=== PATIENT | female | born 1980 | race Caucasian/White ===

== ENCOUNTER 2018-01-30 15:58 | Inpatient (IN) | payer MEDICAID, SELFPAY ==
[2018-01-30 15:59] VITALS: BP 163/99; PULSE 109; RESP 18; TEMP 37.2; O2SAT 99; BMI 50.7
--- NOTE | 2018-01-30 16:13 | ED.DCSUM_ITS ---
- ER Visit Summary Date of Service: 01/30/18 Chief Complaint: Nausea and vomiting History of Present Illness: The patient is a 37 F who presents with nausea and vomiting. Is been ongoing for 6 days. The patient had a partial nephrectomy on December 09 at [facility]. This was for a renal cancer. She has not been on any chemotherapy as they got all of the cancer with the surgery. She has had a complicated postoperative course including multiple admissions at [facility] for postoperative wound infections. She was just released from there 6 days ago. She has been trying to use Zofran and recently started taking Phenergan to help with his nausea but is not getting any better. She has bu rning in her abdomen. She has been doing wound dressing changes on the left flank wound. They are scheduled to follow-up with the wound center. She has not had a fever. She is also currently on Bactrim. Family member in the room states that they put her on this Bactrim because they do not know what infection they are trying to treat. Physical Examination: Vital signs are reviewed. BMI 50. HEENT exam unremarkable. Heart is regular rate and rhythm. Lungs are clear to auscultation bilaterally. Abdomen is soft and nontender. There is no distention, guarding. Extremities have no significant edema. Skin exam reveals a chronic wound to the left flank. There is packing in place. There is no erythema or significant drainage. There is a slight serous drainage which family has stated has been there. Her neurologic exam is normal. Test Results: Hemoglobin 11, hematocrit 33.7. BUN 31, creatinine 4.88. Liver enzymes negative Emergency Department Course and Treatment: The patient's last BUN and creatinine were normal. I hydrated her with IV fluids. She was also given Phenergan. There is concern for dehydration along with possible intrarenal pathology such as ATN with the elevation of her creatinine without a significant elevation of the BUN. Patient was discussed with the hospitalist for admission. Treatment Plan: [] Disposition: Admit Impression: Acute kidney injury, dehydration, vomiting This note was generated with [employer] ([employer]) dictation software. It may contain incorrect words, spelling, and punctuation that were not noted in review of the chart prior to signing ED Disposition - Plan for ED Patient: Disposition: Acute Care Hospital [facility] Chief Complaint: General Illness
[2018-01-30] MEDS: proMETHazine 25 MG/ML Syringe 12.5 MG IV (16:49)
[2018-01-30 16:51] VITALS: PULSE 101; RESP 18; O2SAT 100
[2018-01-30 17:00] LABS: Absolute Lymphocyte Count 1.03 X10^3/ul (0.83-4.51); Absolute Neutrophil Count 6.6 X10^3/uL (2.0-7.7); Basophil# 0.02 X10^3/uL; Basophil% 0.2 % (0-1); Eosinophil# 0.17 X10^3/uL; Hematocrit 33.7 % (37-47); Lymphocyte # 1.03 X10^3/ul (4.0); Lymphocyte % 12.3 % (19-41); Mean Corp Hgb Conc 32.6 g/gl (32-36); Mean Corpuscular Hgb 26.1 pg (27.0-32.0); Mean Platelet Vol. 8.8 fl (6.2-12.0); Monocyte# 0.56 X10^3/uL; Monocyte% 6.7 % (0-10); Neutrophil # 6.59 X10^3/uL (2.7-7.7); Neutrophil % 78.6 % (47-70); POSITIVE COUNT NO; POSITIVE DIFFERENTIAL NO; POSITIVE MORPHOLOGY NO; Platelet Count 305 K/mm3 (150-450); RBC Distribution Width CV 14.1 % (11.6-14.6); RBC Distribution Width SD 39.8 fl (35.1-43.9); Red Blood Count 4.21 M/mm3 (4.2-5.4); White Blood Count 8.4 K/mm3 (4.4-11.0)
[2018-01-30 17:25] LABS: ALB/GLOB Ratio 0.5 RATIO (0.9-2.4); AST(SGOT) 10 U/L (15-37); Alanine Aminotransfer ALT/SGPT 20 U/L (13-56); Albumin, Serum 2.4 g/dL (3.2-5.0); Alkaline Phosphatase 96 U/L (45-117); Anion Gap 14 (5-15); BUN 31 mg/dL (7-18); BUN/Creat Ratio 6.4 RATIO (10-20); Calcium,Total 8.8 mg/dL (8.5-10.1); Chloride 99 mmol/L (98-107); Creatinine, Serum 4.88 mg/dL (0.55-1.02); EST Glomerular Filtration Rate 11 mL/min (>60); Est Glom Filt Rate - Afr Amer 13 mL/min (>60); Estimated Creatinine Clearance 14.07 ml/min; Globulin 4.5 g/dL (2.2-4.2); Glucose 144 mg/dL (74-106); Lipase 32 U/L (73-393); Protein, Total 6.9 g/dL (6.4-8.2); Sodium Level 138 mmol/L (136-145)
[2018-01-30 18:00] VITALS: RESP 18
[2018-01-30] MEDS: 0.9% Normal Saline 1,000 ML 999 ML IV (18:28)
--- NOTE | 2018-01-30 19:27 | PCM.HP.STD ---
Problem List (1) MITRA (acute kidney injury) Status: Acute (2) Intractable nausea and vomiting Status: Acute History of Present Illness Date of Admission: 01/30/18 Chief Complaint: NAUSEA AND VOMITING The patient is a 37 year old F with a significant history of diabetes mellitus TYPE 2; Left kidney cancer status post nephrectomy who presents with 6 days of nausea and vomiting. Patient was at [facility] about a week ago. She spent about 1 day at [facility] and then she was sent to [facility]. Throughout her admission at these hospital she received antibiotics for infection at her left nephrectomy site. Since about the day 1 of receiving these antibiotics she has been having nausea and vomiting. Indeed patient reported that she was discharged from [facility] with nausea and vomiting. Associated with her symptoms is epigastric pain. She also has pain at the left nephrectomy site. Also she has a poor appetite. At her previous hospital stays she was on IV antibiotics. Recently she has also been on Keflex. Her Keflex was later changed to Bactrim. At the time of presentation patient was still on Bactrim but she reported that her home nurse told her not to take Bactrim on the day of her presentation. At emergency department she was found to have severely elevated creatinine above her baseline. Past Medical History Past Medical History (Chronic Problems): Chronic Problems (Last Reviewed 01/31/18 @ 01:49 by Giancarlo Burt MD) Mass of left kidney (Chronic) Medical History: Medical History (Last Reviewed 01/31/18 @ 01:49 by Giancarlo Burt MD) Acute UTI N39.0 Anxiety F41.9 Depressive disorder F32.9 Diabetes mellitus E11.9 Morbid obesity E66.01 Pyelonephritis N12 Smoker F17.200 diabetes mellitus type 2 Allergies acetaminophen [From Tylenol] Adverse Reaction (Severe, Verified 01/30/18 16:02) Hives clindamycin Adverse Reaction (Severe, Verified 01/30/18 16:02) Hives Home Medications: Ambulatory Orders Medication Instructions Recorded Metformin HCl [Glucophage] 500 mg PO BIDCM 06/06/14 Albuterol Inhaler [Ventolin Hfa 2 puff INHALATION Q4H PRN PRN 08/07/17 (SP)] Glipizide [Glucotrol] 10 mg PO BID 08/07/17 Ipratropium/Albuterol Sulfate 3 ml INHALATION Q6H.RT PRN 08/07/17 [Duoneb] Ondansetron [Zofran Odt] 4 mg PO Q8H PRN PRN 08/07/17 Exenatide Microspheres [Bydureon 2 mg SC QWEEK 01/30/18 Pen] Insulin Glargine,Hum.rec.anlog 20 unit SQ DAILY 01/30/18 [Lantus] Promethazine HCl 25 mg PO Q6H PRN 01/30/18 Sulfamethoxazole/Trimethoprim 1 each PO BID 01/30/18 [Bactrim Ds Tablet] Surgical History: Surgical History (Last Reviewed 01/31/18 @ 01:49 by Giancarlo Burt MD) History of tubal ligation Z98.51 Previous section Z98.891 Surgical History: - - Lives: With Family Smoking Status: Current every day smoker - *Family History Paternal Family History: Family History (Last Reviewed 01/31/18 @ 01:49 by Giancarlo Burt MD) Father Diabetes Uncle Cancer Grandmother Diabetes Review of Systems Constitutional: Denies: Chills, Fever, Weight Change HEENT: Denies: Head Aches, Sinus Congestion, Sinus Drainage Cardiovascular: Denies: Chest Pain, Palpitations Respiratory: Denies: Cough, Shortness of breath at rest, Sputum production Gastrointestinal: Reports: Abdominal Pain, Nausea, Vomiting Genitourinary: Denies: Dysuria Musculoskeletal: Denies: Joint Pain, Joint Tenderness Skin: Denies: Rash, Wounds Neurological: Denies: Numbness, Tingling, Focal weakness Psychiatric: Denies: Anxiety, Depression, Homicidal Ideations, Suicidal Ideations Hematologic/ Lymphatic: Denies: Easy Bruising, Easy Bleeding VTE Information - Inpt Only VTE Present on Admission: No VTE Mechan Device Prophylaxis: None VTE Pharm Prophylaxis ordered?: Yes Patient Problems: Active and Suspected Problems (Last Reviewed 01/31/18 @ 01:49 by Giancarlo Burt MD) MITRA (acute kidney injury) (Acute) Intractable nausea and vomiting (Acute) - Physical Exam General: Alert, Oriented x3, Cooperative HEENT: Atraumatic, PERRLA, EOMI, Normocephalic Neck: Supple, No JVD, Negative Carotid Bruits Lungs: Clear to auscultation, Normal air movement Cardiovascular: Regular rate, No murmurs Abdomen: Bowel Sounds Present, Soft, Non Tender Extremities: No edema, Capillary Refill Less than 3 Seconds Skin: No rashes, - - Left flank with surgical wound and francois drainage. Musculoskeletal: No Tenderness to Palpation of Joints or Extremities Neurological: Cranial nerves II-XII grossly intact Psych/Mental Status: Normal Affect, Appropriate Vital Signs Temp Pulse Resp BP Pulse Ox 98.9 F 101 H 18 163/99 H 100 01/30/18 15:59 01/30/18 16:51 01/30/18 18:00 01/30/18 15:59 01/30/18 16:51 Oxygen Delivery Method Room Air Weight: 138.255 kg Body Mass Index (BMI) 50.7 Laboratory Tests Past 24 Hrs 01/30/18 01/30/18 16:52 16:52 WBC 8.4 RBC 4.21 Hgb 11.0 L Hct 33.7 L MCV 80.0 L MCH 26.1 L MCHC 32.6 RDW 14.1 RDW Differential 39.8 Plt Count 305 MPV 8.8 Immature Gran % (Auto) 0.200 Neut % (Auto) 78.6 H Lymph % (Auto) 12.3 L [place] % (Auto) 6.7 Eos % (Auto) 2.0 Baso % (Auto) 0.2 Absolute Neuts (auto) 6.6 Absolute Lymphs (auto) 1.03 Total Counted Not Reportable Sodium 138 Potassium 4.0 Chloride 99 Carbon Dioxide 25.0 Anion Gap 14 BUN 31 H Creatinine 4.88 H Estim Creat Clear Calc 14.07 Est GFR (MDRD) Af Amer 13 L Est GFR (MDRD) Non-Af 11 L BUN/Creatinine Ratio 6.4 L Glucose 144 H Calcium 8.8 Total Bilirubin 0.40 AST 10 L ALT 20 Alkaline Phosphatase 96 Total Protein 6.9 Albumin 2.4 L Globulin 4.5 H Albumin/Globulin Ratio 0.5 L Lipase 32 L Assessment/Plan All Active Problems (Last Reviewed 01/31/18 @ 01:49 by Giancarlo Burt MD) MITRA (acute kidney injury) (Acute) Intractable nausea and vomiting (Acute) The patient is a 37 year old F with a significant history of diabetes mellitus TYPE 2; Left kidney cancer status post nephrectomy who presents with 6 days of nausea and vomiting that started concurrently when antibiotics was initiated; also patient has a copious pus drainage from her left nephrectomy site. Intractable nausea and vomiting Differential diagnosis include antibiotic side effects; diabetic gastroparesis. Bacterial gastroenteritis is less likely since patient has been on multiple antibiotics. Ciprofloxacin and metronidazole was started but to discontinue at this time. Supportive treatment with normal saline and antiemetics. Patient has been initiated on scheduled Reglan for possible diabetic gastroparesis. Nurse reported that 10 minutes after Reglan was given patient had transient restlessness. We will continue Reglan at this time. If her restlessness consider erythromycin. Will check her A1c. Consider transfer for possible gastric emptying study. As needed Zofran ordered. Infected nephrectomy site. White count is normal at 8.4. Wound cultures and blood cultures has been ordered. We will initiate broad-spectrum antibiotics with Linezolid to target MRSA. Vancomycin not started due to AK I with severe poor creatinine function. Cefepime broad-spectrum to cover Pseudomonas. Infectious disease to optimize management. Wound care consult. MITRA Creatinine on admission was 4.88. BUN over creatinine is less than 20. It is possible the patient had ATN from severe dehydration or from the use of antibiotics. Review of old records show that on 06/06/2014 her creatinine was 0.6. Home Bactrim held. Consult nephrology urinary studies Gentle IV hydration. Hold nephrotoxic's. Diabetes mellitus Blood glucose was within goal at admission. Home metformin held. Correction scale insulin. Tobacco abuse Nicotine patch. Counselled. Inpatient consult for smoking cessation. Asthma Home breathing treatments continued. DVT prophylaxis Subcutaneous heparin. Code Visit Inpatient E&M: 32432 Init Hosp L3
[2018-01-30 20:31] VITALS: BMI 50.7
[2018-01-30 20:45] VITALS: BP 186/102; PULSE 98; RESP 18; TEMP 37; O2SAT 98
[2018-01-30] MEDS: 0.9% Normal Saline 1,000 ML 100 ML IV (22:03)
[2018-01-30] MEDS: Ondansetron 4 MG/2 ML Vial IV (22:03)
[2018-01-30] MEDS: Heparin Injection (Vial) 5,000 UNIT/ML VIAL 5000 UNIT SC (22:05)
[2018-01-30 22:46] LABS: Bedside Glucose 147 mg/dL (70-110)
[2018-01-30] MEDS: Metoclopramide 10 MG/2 ML Vial IV (23:59)
[2018-01-30] MEDS: Ciprofloxacin 400 MG/200 ML BAG 200 MG IV (23:59)
[2018-01-31] MEDS: 0.9% NaCl Peripheral Flush Adult/Peds IV ×2 (02:50→08:24)
[2018-01-31 03:13] LABS: Hemoglobin A1c 8.6 % (4.2-6.3)
[2018-01-31 03:26] VITALS: BP 148/95; PULSE 89; RESP 16; TEMP 37; O2SAT 95
[2018-01-31 06:16] LABS: Absolute Neutrophil Count 4.1 X10^3/uL (2.0-7.7); Basophil# 0.03 X10^3/uL; Basophil% 0.5 % (0-1); Eosinophil# 0.14 X10^3/uL; Eosinophils% 2.2 % (0-5); Hematocrit 29.7 % (37-47); Hemoglobin 9.7 g/dl (12.0-15.0); Lymphocyte % 22.1 % (19-41); Mean Corp Hgb Conc 32.7 g/gl (32-36); Mean Corpuscular Hgb 26.3 pg (27.0-32.0); Mean Corpuscular Volume 80.5 fL (81-99); Mean Platelet Vol. 9.2 fl (6.2-12.0); Monocyte# 0.63 X10^3/uL; Monocyte% 9.9 % (0-10); Neutrophil # 4.13 X10^3/uL (2.7-7.7); Neutrophil % 65.1 % (47-70); Platelet Count 251 K/mm3 (150-450); RBC Distribution Width CV 14.1 % (11.6-14.6); RBC Distribution Width SD 39.6 fl (35.1-43.9); Red Blood Count 3.69 M/mm3 (4.2-5.4); White Blood Count 6.3 K/mm3 (4.4-11.0)
[2018-01-31 06:23] LABS: POSITIVE COUNT NO; POSITIVE DIFFERENTIAL NO; POSITIVE MORPHOLOGY NO
[2018-01-31] MEDS: Heparin Injection (Vial) 5,000 UNIT/ML VIAL 5000 UNIT SC ×3 (06:49→22:32)
[2018-01-31] MEDS: Metoclopramide 10 MG/2 ML Vial IV ×2 (06:50→22:17)
[2018-01-31 07:00] LABS: Bedside Glucose 111 mg/dL (70-110)
[2018-01-31 07:25] VITALS: O2SAT 95
[2018-01-31] MEDS: 0.9% Normal Saline 1,000 ML 100 ML IV (07:58)
[2018-01-31 08:14] VITALS: BP 151/95; PULSE 89; RESP 20; TEMP 36.4; O2SAT 100
[2018-01-31] MEDS: Ondansetron 4 MG/2 ML Vial IV (08:24)
--- NOTE | 2018-01-31 08:54 | NURSING ---
Pt tearful, crying. I'm so tired of being in the hospital. I hate having all this medicine, I just wish I knew what was wrong. C.o abd pain. Khari offered, refused at first but then decided to try it. Assisted to bathroom, urinated and back to bed. Dressings intact but dressing should be changed. According to sister, Sister Changes it TID. This nurse wants to wait for Hospitalist doctor to look at it and the pt also wants to get a shower this morning. Will change Wound dressing later today.
[2018-01-31 11:25] LABS: Bedside Glucose 149 mg/dL (70-110)
--- NOTE | 2018-01-31 11:40 | PCM.PN.HOSP ---
Patient Problems: Active and Suspected Problems (Last Reviewed 01/31/18 @ 01:49 by Giancarlo Burt MD) MITRA (acute kidney injury) (Acute) Intractable nausea and vomiting (Acute) Subjective: Feels a little better today, no nausea or vomting Vitals/I&O's: Vital Signs Temp Pulse Resp BP Pulse Ox 97.6 F L 89 20 H 151/95 H 100 01/31/18 08:14 01/31/18 08:14 01/31/18 08:14 01/31/18 08:14 01/31/18 08:14 Oxygen Delivery Method Room Air Weight: 304 lb 12.8 oz Body Mass Index (BMI) 50.7 Intake and Output for Last 24 Hours 01/29/18 01/30/18 01/31/18 23:59 23:59 23:59 Intake Total 3579 / 3579 Output Total 950 / 950 Balance 2629 / 2629 General: Alert, Oriented x3, Cooperative, No apparent distress HEENT: Atraumatic, EOMI, Normocephalic Oral: Moist Mucosa Neck: Supple, No JVD Lungs: Clear to auscultation, Normal air movement, No rhonchi, No wheeze, No rales Cardiovascular: Regular rate, Regular Rhythm, Normal S1, Normal S2, No murmurs Abdomen: Soft, Non Tender, Non-Distended, No Hepato-splenomegaly, - - active purulent drainage from the left nephrectomy site Psych/Mental Status: Normal Affect, Appropriate Laboratory Results 01/30/18 16:52: WBC 8.4, RBC 4.21, Hgb 11.0 L, Hct 33.7 L, MCV 80.0 L, MCH 26.1 L, MCHC 32.6, RDW 14.1, RDW Differential 39.8, Plt Count 305, MPV 8.8, Immature Gran % (Auto) 0.200, Neut % (Auto) 78.6 H, Lymph % (Auto) 12.3 L, [place] % (Auto) 6.7, Eos % (Auto) 2.0, Baso % (Auto) 0.2, Absolute Neuts (auto) 6.6, Absolute Lymphs (auto) 1.03, Total Counted Not Reportable 01/30/18 16:52: Sodium 138, Potassium 4.0, Chloride 99, Carbon Dioxide 25.0, Anion Gap 14, BUN 31 H, Creatinine 4.88 H, Estim Creat Clear Calc 14.07, Est GFR (MDRD) Af Amer 13 L, Est GFR (MDRD) Non-Af 11 L, BUN/Creatinine Ratio 6.4 L, Glucose 144 H, Calcium 8.8, Total Bilirubin 0.40, AST 10 L, ALT 20, Alkaline Phosphatase 96, Total Protein 6.9, Albumin 2.4 L, Globulin 4.5 H, Albumin/Globulin Ratio 0.5 L, Lipase 32 L 01/30/18 16:56: Hemoglobin A1c 8.6 H 01/30/18 22:16: POC Glucose 147 H 01/31/18 05:34: WBC 6.3, RBC 3.69 L, Hgb 9.7 L, Hct 29.7 L, MCV 80.5 L, MCH 26.3 L, MCHC 32.7, RDW 14.1, RDW Differential 39.6, Plt Count 251, MPV 9.2, Immature Gran % (Auto) 0.200, Neut % (Auto) 65.1, Lymph % (Auto) 22.1, [place] % (Auto) 9.9, Eos % (Auto) 2.2, Baso % (Auto) 0.5, Absolute Neuts (auto) 4.1, Absolute Lymphs (auto) 1.40, Total Counted Not Reportable 01/31/18 05:34: Sodium Pending, Potassium Pending, Chloride Pending, Carbon Dioxide Pending, Anion Gap Pending, BUN Pending, Creatinine Pending, Est GFR (MDRD) Af Amer Pending, Est GFR (MDRD) Non-Af Pending, BUN/Creatinine Ratio Pending, Glucose Pending, Calcium Pending 01/31/18 06:55: POC Glucose 111 H 01/31/18 11:05: POC Glucose 149 H Current Medications Albuterol Sulfate (Ventolin Aerosols) 2.5 mg INHALATION Q4H PRN PRN PRN Reason: SOB &/OR WHEEZING Albuterol/Ipratropium (Duoneb) 3 ml INHALATION Q6H.RT PRN PRN Reason: SOB &/OR WHEEZING Dextrose (D50w Syringe) 0 gm IV X1 PRN; Protocol PRN Reason: Hypoglycemia Glucagon () 1 mg IM .X1 PRN PRN Reason: Hypoglycemia Heparin Sodium (Porcine) (Heparin Na) 5,000 unit SC Q8 [facility] Last Admin: 01/31/18 06:49 Dose: 5,000 unit Sodium Chloride () 1,000 mls @ 100 mls/hr IV .Q10H TATIANA Stop: 01/31/18 16:43 Last Admin: 01/31/18 07:58 Dose: 100 mls/hr Cefepime HCl 2 gm/ Sodium (Chloride) 100 mls @ 200 mls/hr IV Q24@2200 TATIANA Last Admin: 01/31/18 02:42 Dose: 200 mls/hr Daptomycin 850 mg/ Sodium (Chloride) 67 mls @ 100 mls/hr IV Q48@1000 TATIANA Last Admin: 01/31/18 03:25 Dose: 100 mls/hr Insulin Human Lispro (Humalog Kwikpen (Bkc)) 0 unit SQ ACHS TATIANA; Protocol Last Admin: 01/31/18 11:07 Dose: Not Given Magnesium Hydroxide (Milk Of Magnesia) 30 ml PO DAILY PRN PRN PRN Reason: Constipation Metoclopramide HCl (Reglan) 10 mg IV Q6 [facility] Last Admin: 01/31/18 06:50 Dose: 10 mg Nicotine (Nicoderm Cq (Pbkc)) 21 mg TRANSDERM. DAILY TATIANA Last Admin: 01/31/18 08:03 Dose: 21 mg Ondansetron HCl (Zofran) 4 mg IV Q6H PRN PRN PRN Reason: NAUSEA/VOMITING Last Admin: 01/31/18 08:24 Dose: 4 mg Sodium Chloride () 5 - 30 ml IV UD PRN PRN Reason: SALINE FLUSH Last Admin: 01/31/18 08:24 Dose: 10 ml Medical Necessity - Tobacco Use Smoking Status: Current every day smoker Assessment/Plan All Active Problems (Last Reviewed 01/31/18 @ 01:49 by Giancarlo Burt MD) MITRA (acute kidney injury) (Acute) Intractable nausea and vomiting (Acute) 1. Surgical site infection of left partial nephrectomy for renal ca/MITRA - resection occurred in november - She had been doing ok until she noticed that she had a blister that was filled with pus - She went to [facility] who transfered her to [facility]. she had cultures drawn and was discharge on keflex - She has been having nausea and vomiting for about a week. She was called by the [facility] to switch abx from keflex to bactrim - Apparently they did not tell her what infection she had - CT abdomen was done at [place] but not here - Currently on IVF and repeat creatinine is pending - c/s to ID and nephrology for infection and MITRA management when she was admitted - She is currently making urine and her K was normal on admit, so no dialysis and this is prerenal to likely ATN at this point - c/w cefepime, DC daptomycin - DC reglan, maintain on zofran and add compazine as needed - will attempt to obtain records from the [facility], otherwise may need to repeat CT here to assess for intra-abdominal abscess 2. DM2 - Hold metformin and glipizide - SSI and will adjust as needed - BG 149 this am 3. Tobacco abuse - advised cessation - Nicotine patch provided 4. Asthma - stable - c/w home inhalers DVT: Heparin Diet: Clears Code Visit Inpatient E&M: 19110 Subs Hosp L2
--- NOTE | 2018-01-31 11:51 | PN_ITS ---
Patient Problems: Active and Suspected Problems (Last Reviewed 01/31/18 @ 01:49 by Giancarlo Burt MD) MITRA (acute kidney injury) (Acute) Intractable nausea and vomiting (Acute) Subjective: Feels a little better today, no nausea or vomting Vitals/I&O's: Vital Signs Temp Pulse Resp BP Pulse Ox 97.6 F L 89 20 H 151/95 H 100 01/31/18 08:14 01/31/18 08:14 01/31/18 08:14 01/31/18 08:14 01/31/18 08:14 Oxygen Delivery Method Room Air Weight: 304 lb 12.8 oz Body Mass Index (BMI) 50.7 Intake and Output for Last 24 Hours 01/29/18 01/30/18 01/31/18 23:59 23:59 23:59 Intake Total 3579 / 3579 Output Total 950 / 950 Balance 2629 / 2629 General: Alert, Oriented x3, Cooperative, No apparent distress HEENT: Atraumatic, EOMI, Normocephalic Oral: Moist Mucosa Neck: Supple, No JVD Lungs: Clear to auscultation, Normal air movement, No rhonchi, No wheeze, No rales Cardiovascular: Regular rate, Regular Rhythm, Normal S1, Normal S2, No murmurs Abdomen: Soft, Non Tender, Non-Distended, No Hepato-splenomegaly, - - active purulent drainage from the left nephrectomy site Psych/Mental Status: Normal Affect, Appropriate Laboratory Results 01/30/18 16:52: WBC 8.4, RBC 4.21, Hgb 11.0 L, Hct 33.7 L, MCV 80.0 L, MCH 26.1 L, MCHC 32.6, RDW 14.1, RDW Differential 39.8, Plt Count 305, MPV 8.8, Immature Gran % (Auto) 0.200, Neut % (Auto) 78.6 H, Lymph % (Auto) 12.3 L, [place] % (Auto) 6.7, Eos % (Auto) 2.0, Baso % (Auto) 0.2, Absolute Neuts (auto) 6.6, Absolute Lymphs (auto) 1.03, Total Counted Not Reportable 01/30/18 16:52: Sodium 138, Potassium 4.0, Chloride 99, Carbon Dioxide 25.0, Anion Gap 14, BUN 31 H, Creatinine 4.88 H, Estim Creat Clear Calc 14.07, Est GFR (MDRD) Af Amer 13 L, Est GFR (MDRD) Non-Af 11 L, BUN/Creatinine Ratio 6.4 L, Glucose 144 H, Calcium 8.8, Total Bilirubin 0.40, AST 10 L, ALT 20, Alkaline Phosphatase 96, Total Protein 6.9, Albumin 2.4 L, Globulin 4.5 H, Albumin/Globulin Ratio 0.5 L, Lipase 32 L 01/30/18 16:56: Hemoglobin A1c 8.6 H 01/30/18 22:16: POC Glucose 147 H 01/31/18 05:34: WBC 6.3, RBC 3.69 L, Hgb 9.7 L, Hct 29.7 L, MCV 80.5 L, MCH 26.3 L, MCHC 32.7, RDW 14.1, RDW Differential 39.6, Plt Count 251, MPV 9.2, Immature Gran % (Auto) 0.200, Neut % (Auto) 65.1, Lymph % (Auto) 22.1, [place] % (Auto) 9.9, Eos % (Auto) 2.2, Baso % (Auto) 0.5, Absolute Neuts (auto) 4.1, Absolute Lymphs (auto) 1.40, Total Counted Not Reportable 01/31/18 05:34: Sodium Pending, Potassium Pending, Chloride Pending, Carbon Dioxide Pending, Anion Gap Pending, BUN Pending, Creatinine Pending, Est GFR (MDRD) Af Amer Pending, Est GFR (MDRD) Non-Af Pending, BUN/Creatinine Ratio Pending, Glucose Pending, Calcium Pending 01/31/18 06:55: POC Glucose 111 H 01/31/18 11:05: POC Glucose 149 H Current Medications Albuterol Sulfate (Ventolin Aerosols) 2.5 mg INHALATION Q4H PRN PRN PRN Reason: SOB &/OR WHEEZING Albuterol/Ipratropium (Duoneb) 3 ml INHALATION Q6H.RT PRN PRN Reason: SOB &/OR WHEEZING Dextrose (D50w Syringe) 0 gm IV X1 PRN; Protocol PRN Reason: Hypoglycemia Glucagon () 1 mg IM .X1 PRN PRN Reason: Hypoglycemia Heparin Sodium (Porcine) (Heparin Na) 5,000 unit SC Q8 [facility] Last Admin: 01/31/18 06:49 Dose: 5,000 unit Sodium Chloride () 1,000 mls @ 100 mls/hr IV .Q10H TATIANA Stop: 01/31/18 16:43 Last Admin: 01/31/18 07:58 Dose: 100 mls/hr Cefepime HCl 2 gm/ Sodium (Chloride) 100 mls @ 200 mls/hr IV Q24@2200 TATIANA Last Admin: 01/31/18 02:42 Dose: 200 mls/hr Daptomycin 850 mg/ Sodium (Chloride) 67 mls @ 100 mls/hr IV Q48@1000 TATIANA Last Admin: 01/31/18 03:25 Dose: 100 mls/hr Insulin Human Lispro (Humalog Kwikpen (Bkc)) 0 unit SQ ACHS TATIANA; Protocol Last Admin: 01/31/18 11:07 Dose: Not Given Magnesium Hydroxide (Milk Of Magnesia) 30 ml PO DAILY PRN PRN PRN Reason: Constipation Metoclopramide HCl (Reglan) 10 mg IV Q6 [facility] Last Admin: 01/31/18 06:50 Dose: 10 mg Nicotine (Nicoderm Cq (Pbkc)) 21 mg TRANSDERM. DAILY TATIANA Last Admin: 01/31/18 08:03 Dose: 21 mg Ondansetron HCl (Zofran) 4 mg IV Q6H PRN PRN PRN Reason: NAUSEA/VOMITING Last Admin: 01/31/18 08:24 Dose: 4 mg Sodium Chloride () 5 - 30 ml IV UD PRN PRN Reason: SALINE FLUSH Last Admin: 01/31/18 08:24 Dose: 10 ml Medical Necessity - Tobacco Use Smoking Status: Current every day smoker Assessment/Plan All Active Problems (Last Reviewed 01/31/18 @ 01:49 by Giancarlo Burt MD) MITRA (acute kidney injury) (Acute) Intractable nausea and vomiting (Acute) 1. Surgical site infection of left partial nephrectomy for renal ca/MITRA - resection occurred in november - She had been doing ok until she noticed that she had a blister that was filled with pus - She went to [facility] who transfered her to [facility]. she had cultures drawn and was discharge on keflex - She has been having nausea and vomiting for about a week. She was called by the [facility] to switch abx from keflex to bactrim - Apparently they did not tell her what infection she had - CT abdomen was done at [place] but not here - Currently on IVF and repeat creatinine is pending - c/s to ID and nephrology for infection and MITRA management when she was admitted - She is currently making urine and her K was normal on admit, so no dialysis and this is prerenal to likely ATN at this point - c/w cefepime, DC daptomycin - DC reglan, maintain on zofran and add compazine as needed - will attempt to obtain records from the [facility], otherwise may need to repeat CT here to assess for intra-abdominal abscess 2. DM2 - Hold metformin and glipizide - SSI and will adjust as needed - BG 149 this am 3. Tobacco abuse - advised cessation - Nicotine patch provided 4. Asthma - stable - c/w home inhalers DVT: Heparin Diet: Clears Code Visit Inpatient E&M: 63422 Subs Hosp L2
--- NOTE | 2018-01-31 12:27 | NURSING ---
talked w/ Agustin from lab [facility] he will look into why bmp is not resulted out.
[2018-01-31 12:49] LABS: Anion Gap 7 (5-15); BUN 30 mg/dL (7-18); BUN/Creat Ratio 6.5 RATIO (10-20); Calcium,Total 8.1 mg/dL (8.5-10.1); Chloride 103 mmol/L (98-107); Creatinine, Serum 4.63 mg/dL (0.55-1.02); EST Glomerular Filtration Rate 11 mL/min (>60); Est Glom Filt Rate - Afr Amer 14 mL/min (>60); Estimated Creatinine Clearance 14.82 ml/min; Glucose 113 mg/dL (74-106); Potassium 3.8 mmol/L (3.5-5.1); Sodium Level 135 mmol/L (136-145)
[2018-01-31] MEDS: proCHLORPERazine 10 MG/2 ML Vial IV (13:14)
[2018-01-31 13:58] VITALS: BP 180/95; PULSE 85; RESP 20; TEMP 36.7; O2SAT 98
--- NOTE | 2018-01-31 15:27 | NURSING ---
Iv leaking and tender. Discontinued Old Iv site. Claire Charge Nurse attempted to re-start, unsuccessful. Unable to get 2nd set of blood cultures this morning. Order for Midline obtained.
--- NOTE | 2018-01-31 15:42 | PCA ---
Addendum entered by Quentin Rodarte 01/31/18 16:28: Received medical records from [facility]. Placed records on chart and notified Dr. Hernandez via cortext. Original Note: Faxed release of medical records to [facility] at [phone]
--- NOTE | 2018-01-31 15:58 | NURSING ---
Tamiko from washtub worker helper here in the room starting midline insertion.
[2018-01-31 17:01] LABS: Bedside Glucose 145 mg/dL (70-110)
[2018-01-31] MEDS: Mag Hydrox/Al Hydrox/Simeth 30 ML UDC PO (17:05)
[2018-01-31 22:09] VITALS: BP 162/82; PULSE 85; RESP 18; TEMP 36.7; O2SAT 97
[2018-01-31 23:10] LABS: Bedside Glucose 143 mg/dL (70-110)
[2018-02-01] VITALS (7 sets, daily range): BP systolic 149–174; BP diastolic 87–100; PULSE 85–98; RESP 16–18; TEMP 36.5–37.2; O2SAT 95–98
[2018-02-01] MEDS: Heparin Injection (Vial) 5,000 UNIT/ML VIAL 5000 UNIT SC ×3 (05:35→21:38)
[2018-02-01 06:35] LABS: Bedside Glucose 116 mg/dL (70-110)
[2018-02-01 07:42] LABS: Anion Gap 13 (5-15); BUN 29 mg/dL (7-18); BUN/Creat Ratio 6.8 RATIO (10-20); Calcium,Total 8.3 mg/dL (8.5-10.1); Chloride 103 mmol/L (98-107); Creatinine, Serum 4.27 mg/dL (0.55-1.02); EST Glomerular Filtration Rate 12 mL/min (>60); Est Glom Filt Rate - Afr Amer 15 mL/min (>60); Estimated Creatinine Clearance 16.07 ml/min; Glucose 126 mg/dL (74-106); Sodium Level 139 mmol/L (136-145)
[2018-02-01 07:52] LABS: Absolute Lymphocyte Count 1.03 X10^3/ul (0.83-4.51); Absolute Neutrophil Count 4.7 X10^3/uL (2.0-7.7); Basophil# 0.02 X10^3/uL; Basophil% 0.3 % (0-1); Eosinophil# 0.16 X10^3/uL; Eosinophils% 2.5 % (0-5); Hematocrit 30.1 % (37-47); Hemoglobin 9.7 g/dl (12.0-15.0); Lymphocyte # 1.03 X10^3/ul (4.0); Mean Corp Hgb Conc 32.2 g/gl (32-36); Mean Corpuscular Hgb 26.2 pg (27.0-32.0); Mean Corpuscular Volume 81.4 fL (81-99); Mean Platelet Vol. 9.4 fl (6.2-12.0); Monocyte% 7.8 % (0-10); Neutrophil % 73.2 % (47-70); Platelet Count 225 K/mm3 (150-450); RBC Distribution Width SD 40.3 fl (35.1-43.9); White Blood Count 6.4 K/mm3 (4.4-11.0)
[2018-02-01 08:07] LABS: POSITIVE COUNT NO; POSITIVE DIFFERENTIAL NO; POSITIVE MORPHOLOGY NO
--- NOTE | 2018-02-01 08:55 | NURSING ---
wound photo: left lateral lower abdominal fold
--- NOTE | 2018-02-01 09:30 | CASEMGMT ---
RN FREDY Face to Face with patient for initial transition planning/care coordination assessment. RN CM introduced self and role at [facility]. Patient lying in bed, alert and oriented, sister at bedside. Patient willing to participate in assessment and is able to answer all questions appropriately. Care providers, pharmacy, and demographics verified. Patient wishes to discharge home with resumption of HHC with [facility]. Patient states she has no further needs or concerns at this time. CM to follow for discharge planning needs that may arise. PCP: Jamey Specialists: Brian urologgary Brannon Pharmacy: [facility] Clarke Insurance: [employer] Prescription Benefit: [employer] Living Will/HPOA: None, declined information LNOK: Mother and sister Living Arrangements: Patient lives with family in 2 story home with stair lift. Patient is independent. Transportation: Family DME/HHC: Patient has shower chair, declines additional DME. Patient is current with [facility]. Disposition Plan: Patient to discharge home with resumption of HHC, family support, and follow-up plans in place. Zoë DA SILVA, RN, CM
[2018-02-01] MEDS: Metoclopramide 10 MG/2 ML Vial IV (09:39)
[2018-02-01 11:55] LABS: Bedside Glucose 148 mg/dL (70-110)
--- NOTE | 2018-02-01 12:52 | CT_ITS ---
STUDY: CT ABDOMEN WITHOUT CONTRAST REASON FOR EXAM: Female, 37 years old. Pain. History of partial nephrectomy and abscess. RADIATION DOSAGE (If Supplied By Facility): CTDIvol = ( 17.58 ) mGy, DLP = ( 647.15 ) mGycm TECHNIQUE: Transaxial images were obtained without intravenous contrast, and without oral contrast. Sagittal and coronal images were reconstructed. Individualized dose optimization techniques were used for this CT. COMPARISON: None. FINDINGS: The visualized lung bases are unremarkable. The visualized portions of the heart are within normal limits. There are also gallstones present. The liver, spleen, pancreas, adrenal glands and right kidney demonstrate an unremarkable unenhanced appearance. There are postsurgical changes from a partial defect in the left kidney. There is a small amount of adjacent loculated fluid. This may represent a postoperative seroma. However, abscess cannot be excluded without contrast. The visualized bowel demonstrates no evidence of obstruction. The aorta is normal in caliber. There are no destructive osseous lesions. CT/Abdomen without IV Contrast IMPRESSION: Postsurgical changes from a partial nephrectomy in the left kidney. Small amount of loculated fluid adjacent to the left kidney which may represent a postoperative seroma. However, abscess cannot be excluded without contrast. Electronically Signed: Avtar Benjamin, at 14:31 EDT Tel , Service support ,
--- NOTE | 2018-02-01 12:59 | CON.PCM_ITS ---
Problem List (1) Surgical site infection Status: Acute Reason for Consult: abscess Consulted by: Dr. Hernandez History of Present Illness: The patient is a 37 year old F with recent L nephrectomy at [facility] complicated by MRSA abscess post-op requiring re-admission and I&D. Discharged on keflex with packing in place, sister has been helping with wound. Keflex was changed to bactrim this past week and she over the next few days had progressive n/v, weakness, not feeling well. Wound relatively stable, but still some soreness and 2 new pinhole openings. Found to have Cr over 4, admitted, given dapto, cipro, flagyl, then changed to cefepime. Full ROS performed and neg except as noted above. - Medical History Past Medical History (Chronic Problems): Chronic Problems (Last Reviewed 01/31/18 @ 01:49 by Giancarlo Burt MD) Mass of left kidney (Chronic) Allergies/Adverse Reactions: Allergies acetaminophen [From Tylenol] Adverse Reaction (Severe, Verified 01/30/18 16:02) Hives clindamycin Adverse Reaction (Severe, Verified 01/30/18 16:02) Hives Home Medications: Ambulatory Orders Medication Instructions Recorded Metformin HCl [Glucophage] 500 mg PO BIDCM 06/06/14 Albuterol Inhaler [Ventolin Hfa 2 puff INHALATION Q4H PRN PRN 08/07/17 (SP)] Glipizide [Glucotrol] 10 mg PO BID 08/07/17 Ipratropium/Albuterol Sulfate 3 ml INHALATION Q6H.RT PRN 08/07/17 [Duoneb] Ondansetron [Zofran Odt] 4 mg PO Q8H PRN PRN 08/07/17 Exenatide Microspheres [Bydureon 2 mg SC QWEEK 01/30/18 Pen] Insulin Glargine,Hum.rec.anlog 20 unit SQ DAILY 01/30/18 [Lantus] Promethazine HCl 25 mg PO Q6H PRN 01/30/18 Sulfamethoxazole/Trimethoprim 1 each PO BID 01/30/18 [Bactrim Ds Tablet] - Social History Tobacco Use: cigarettes Vital Signs Temp Pulse Resp BP Pulse Ox 99 F 85 16 163/87 H 96 02/01/18 05:28 02/01/18 05:28 02/01/18 05:28 02/01/18 05:28 02/01/18 07:15 Oxygen Delivery Method Room Air Weight: 138.3 kg Body Mass Index (BMI) 50.7 Microbiology Past 72 Hours 01/31/18 03:04 Gram Stain - Final Wound - Open/Non-Healing Wound Wound Culture - Preliminary No growth-Final to follow Laboratory Tests Past 24 Hrs 02/01/18 02/01/18 06:45 06:45 WBC 6.4 RBC 3.70 L Hgb 9.7 L Hct 30.1 L MCV 81.4 MCH 26.2 L MCHC 32.2 RDW 14.0 RDW Differential 40.3 Plt Count 225 MPV 9.4 Immature Gran % (Auto) 0.200 Neut % (Auto) 73.2 H Lymph % (Auto) 16.0 L [place] % (Auto) 7.8 Eos % (Auto) 2.5 Baso % (Auto) 0.3 Absolute Neuts (auto) 4.7 Absolute Lymphs (auto) 1.03 Total Counted Not Reportable Sodium 139 Potassium 4.0 Chloride 103 Carbon Dioxide 23.0 Anion Gap 13 BUN 29 H Creatinine 4.27 H Estim Creat Clear Calc 16.07 Est GFR (MDRD) Af Amer 15 L Est GFR (MDRD) Non-Af 12 L BUN/Creatinine Ratio 6.8 L Glucose 126 H Calcium 8.3 L - Other Studies Radiology: [] reviewed Other Studies: [] Route of nutrition/ use of supplements: [] Nutritional Intake: [] IV Site: [] Serrano Catheter: [] - Physical Exam General: Alert, Oriented x3, Cooperative, No apparent distress HEENT: Atraumatic, PERRLA, EOMI Neck: Supple, No Nodes Lungs: Clear to auscultation, Normal air movement Cardiovascular: Regular rate, Regular Rhythm Abdomen: Soft, Non Tender, Non-Distended Extremities: Edema Skin: Incision - L side abd incision with packing in place, mild drainage, no redness. IV Site: Peripheral, without redness Musculoskeletal: No Tenderness to Palpation of Joints or Extremities Neurological: Cranial nerves II-XII grossly intact - Assessment/Plan Antibiotics: [] Assessment/Plan: [] Active and Suspected Problems (Last Reviewed 01/31/18 @ 01:49 by Giancarlo Burt MD) MITRA (acute kidney injury) (Acute) Intractable nausea and vomiting (Acute) MITRA - neph consulted. Suspect bactrim as cause. MRSA surgical site infection s/p L nephrectomy - will check CT to look for any residual deeper collections. Reviewed [facility] cxs, will cover with doxy for now. Stop cefepime. Cx here pending. No fever, normal wbc. Will follow, thank you.
--- NOTE | 2018-02-01 13:51 | PCM.CONS.R ---
Consultation - Renal 02/01/18 PCP/ Referring MD: Requesting physician: Dr Burt Primary care physician: Out of Town Doctor Reason for Consultation:: MITRA - History of Present Illness History of Present Illness: The patient is a 37 year old morbidly obese F who presented to [facility] on 01/30 for persistent nausea, vomiting since discharge from [facility] on 01/25. She underwent partial left nephrectomy in November 2017 for RCC. She had a renal mass since [address] scan that increase in size on repeat CT abdomen. She went for second opinion at [facility] for partial nephrectomy after she was told she needed a total unilateral nephrectomy by urology. She subsequently developed incisional drainage requiring I/D and received iv antibiotic therapy at [facility] then discharged to home on oral antibx on 01/25 with drsg changes done by her sister at home. She was discharged on keflex then switched to bactrim she took for 2 days prior to admit. She was told to stop taking it by her home nurse prior to admit. She continues to have drainage. Her incision is under her skin fold. She has a history of skin rash, hives on tylenol that she was given at [facility] and discharged on tylenol and oxycodone for pain. She denied fever, chills. Appetite has been poor. Admits to loose stools since admit. Denies abdominal pain. Denies urinary complaints. Consulted for MITRA. Creatnine normal at 0.85 on 01/25 prior to discharge from [facility]. Creatinine on admit 4.88 improved to 4.2 today with iv hydration. Urine output has been poor at home, increase in volume with iv hydration. PMH for HTN, DM2 on metformin, insulin at home.She has a history of frequent UTI's. Denied NSAID use. She did not want to go back to [facility]. - Allergies Allergies: Allergies acetaminophen [From Tylenol] Adverse Reaction (Severe, Verified 01/30/18 16:02) Hives clindamycin Adverse Reaction (Severe, Verified 01/30/18 16:02) Hives - Current Medications Current Medications: Current Medications Albuterol Sulfate (Ventolin Aerosols) 2.5 mg INHALATION Q4H PRN PRN PRN Reason: SOB &/OR WHEEZING Albuterol/Ipratropium (Duoneb) 3 ml INHALATION Q6H.RT PRN PRN Reason: SOB &/OR WHEEZING Dextrose (D50w Syringe) 0 gm IV X1 PRN; Protocol PRN Reason: Hypoglycemia Doxycycline Monohydrate (Doxycycline) 100 mg PO BID TATIANA Glucagon () 1 mg IM .X1 PRN PRN Reason: Hypoglycemia Heparin Sodium (Porcine) (Heparin Na) 5,000 unit SC Q8 TATIANA Last Admin: 02/01/18 05:35 Dose: 5,000 unit Insulin Human Lispro (Humalog Kwikpen (Bkc)) 0 unit SQ ACHS [facility]; Protocol Last Admin: 02/01/18 11:46 Dose: Not Given Magnesium Hydroxide (Milk Of Magnesia) 30 ml PO DAILY PRN PRN PRN Reason: Constipation Metoclopramide HCl (Reglan) 10 mg IV Q8H PRN PRN PRN Reason: NAUSEA/VOMITING Last Admin: 02/01/18 09:39 Dose: 10 mg Nicotine (Nicoderm Cq (Pbkc)) 21 mg TRANSDERM. DAILY TATIANA Last Admin: 02/01/18 09:41 Dose: 21 mg Ondansetron HCl (Zofran) 4 mg IV Q6H PRN PRN PRN Reason: NAUSEA/VOMITING Last Admin: 01/31/18 08:24 Dose: 4 mg Prochlorperazine Edisylate (Compazine Iv) 5 - 10 mg IV Q6H PRN PRN PRN Reason: NAUSEA/VOMITING Last Admin: 01/31/18 13:14 Dose: 10 mg Sodium Chloride () 5 - 30 ml IV UD PRN PRN Reason: SALINE FLUSH Last Admin: 01/31/18 08:24 Dose: 10 ml - Past Medical History Past Medical History (Chronic Problems): Chronic Problems (Last Reviewed 01/31/18 @ 01:49 by Giancarlo Burt MD) Mass of left kidney (Chronic) - Past Surgical History Surgical History: - - Csection complicated by wound infection, tubal ligation, left partial nephrectomy for RCC - Social History Smoking Status: Current every day smoker - Family History Paternal Family History: Family History (Last Reviewed 01/31/18 @ 01:49 by Giancarlo Burt MD) Father Diabetes Uncle Cancer Grandmother Diabetes Maternal Family History: Family History (Last Reviewed 01/31/18 @ 01:49 by Giancarlo Burt MD) Father Diabetes Uncle Cancer Grandmother Diabetes History Items: Diabetes Review of Systems Constitutional: Reports: Anorexia, Weakness. Denies: Chills, Fever Cardiovascular: Denies: Chest Pain, Edema, Syncope Respiratory: Denies: Cough, Shortness of Breath Gastrointestinal: Reports: Nausea, Vomiting. Denies: Abdominal Pain, Constipation, Diarrhea Musculoskeletal: Denies: Back Pain, Joint swelling Skin: Reports: Wounds - incision drainage with open sites, - - multiple tattoos on arms, legs Neurological: Denies: Balance problems, Tremor, Seizures Psychiatric: Reports: Anxiety, Depression Hematologic/ Lymphatic: Denies: Petechiae Patient Problems: Active and Suspected Problems (Last Reviewed 01/31/18 @ 01:49 by Giancarlo Burt MD) MITRA (acute kidney injury) (Acute) Intractable nausea and vomiting (Acute) Surgical site infection (Acute) - Physical Exam General: Alert, Oriented x3, Cooperative, No apparent distress, - - morbidly obese HEENT: PERRLA, EOMI Oral: Dry Mucosa Neck: Supple, No JVD Lungs: Clear to auscultation Cardiovascular: Regular rate, No murmurs, No rub noted Abdomen: Bowel Sounds Present, Soft, Non Tender, Non-Distended, Obese Extremities: No edema Skin: - - multiple tattoo on legs, arms, open drainage of incision site under skin fold, no erythema Musculoskeletal: No Tenderness to Palpation of Joints or Extremities, No Muscle Wasting Neurological: Cranial nerves II-XII grossly intact Psych/Mental Status: Normal Affect, Appropriate, Alert and oriented to time, place, person, mood and affect Vital Signs Temp Pulse Resp BP Pulse Ox 97.7 F L 89 16 161/99 H 98 02/01/18 08:55 02/01/18 08:55 02/01/18 08:55 02/01/18 08:55 02/01/18 08:55 Oxygen Delivery Method Room Air Weight: 138.3 kg Body Mass Index (BMI) 50.7 Intake and Output for Last 24 Hours 01/30/18 01/31/18 02/01/18 23:59 23:59 23:59 Intake Total 4445 / 4445 1142 / 1142 Output Total 1650 / 1650 900 / 900 Balance 2795 / 2795 242 / 242 Microbiology Past 72 Hours 01/31/18 03:04 Gram Stain - Final Wound - Open/Non-Healing Wound Wound Culture - Preliminary No growth-Final to follow Laboratory Tests Past 24 Hrs 02/01/18 02/01/18 06:45 06:45 WBC 6.4 RBC 3.70 L Hgb 9.7 L Hct 30.1 L MCV 81.4 MCH 26.2 L MCHC 32.2 RDW 14.0 RDW Differential 40.3 Plt Count 225 MPV 9.4 Immature Gran % (Auto) 0.200 Neut % (Auto) 73.2 H Lymph % (Auto) 16.0 L [place] % (Auto) 7.8 Eos % (Auto) 2.5 Baso % (Auto) 0.3 Absolute Neuts (auto) 4.7 Absolute Lymphs (auto) 1.03 Total Counted Not Reportable Sodium 139 Potassium 4.0 Chloride 103 Carbon Dioxide 23.0 Anion Gap 13 BUN 29 H Creatinine 4.27 H Estim Creat Clear Calc 16.07 Est GFR (MDRD) Af Amer 15 L Est GFR (MDRD) Non-Af 12 L BUN/Creatinine Ratio 6.8 L Glucose 126 H Calcium 8.3 L POC Glucose 02/01/18 02/01/18 01/31/18 11:46 05:38 22:16 POC Glucose 148 H 116 H 143 H 01/31/18 16:53 POC Glucose 145 H Clinical Impression(s) from Imaging Studies Abdomen CT 02/01/18 12:52 IMPRESSION: Postsurgical changes from a partial nephrectomy in the left kidney. Small amount of loculated fluid adjacent to the left kidney which may represent a postoperative seroma. However, abscess cannot be excluded without contrast. Electronically Signed: Avtar Cassidy, at 14:31 EDT Tel , Service support , Assessment/Plan All Active Problems (Last Reviewed 01/31/18 @ 01:49 by Giancarlo Burt MD) MITRA (acute kidney injury) (Acute) Intractable nausea and vomiting (Acute) Surgical site infection (Acute) 1. Acute renal failure prerenal event from dehydration vs intrinsic renal failure from antibiotics, metformin use in presence of renal failure. Creatinine improving with iv fluids. Urine output improving. 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 Continue to hold metformin, bactrim. Avoid nephrotoxins. 2. Incisional drainage s/p partial open nephrectomy on left for cancer. Continue dressing changes. Afebrile without leukocytosis. 3. DM2 4. HTN add amlodipine 5. Morbid obesity 6. Renal cell cancer 7. Hx UTI/pyelonephritis 8. Await urine sodium, creatinine ordered since 01/30.
[2018-02-01] MEDS: Doxycycline 100 MG CAPSULE PO ×2 (14:20→21:37)
--- NOTE | 2018-02-01 15:45 | PCM.PN.HOSP ---
Patient Problems: Active and Suspected Problems (Last Reviewed 01/31/18 @ 01:49 by Giancarlo Burt MD) MITRA (acute kidney injury) (Acute) Intractable nausea and vomiting (Acute) Surgical site infection (Acute) Subjective: Feels much better today, no nausea, sitting up in bed, more communicative today Vitals/I&O's: Vital Signs Temp Pulse Resp BP Pulse Ox 98.1 F 90 16 163/100 H 98 02/01/18 14:21 02/01/18 14:21 02/01/18 14:21 02/01/18 14:21 02/01/18 14:21 Oxygen Delivery Method Room Air Weight: 304 lb 14.389 oz Body Mass Index (BMI) 50.7 Intake and Output for Last 24 Hours 01/30/18 01/31/18 02/01/18 23:59 23:59 23:59 Intake Total 4445 / 4445 1142 / 1142 Output Total 1650 / 1650 900 / 900 Balance 2795 / 2795 242 / 242 General: Alert, Oriented x3, Cooperative, No apparent distress HEENT: Atraumatic, EOMI, Normocephalic Oral: Moist Mucosa Neck: Supple, No JVD Lungs: Clear to auscultation, Normal air movement, No rhonchi, No wheeze, No rales Cardiovascular: Regular rate, Regular Rhythm, Normal S1, Normal S2, No murmurs Abdomen: Soft, Non Tender, Non-Distended, No Hepato-splenomegaly, - - active purulent drainage from the left nephrectomy site, improved Psych/Mental Status: Normal Affect, Appropriate Microbiology Past 72 Hours 01/31/18 03:04 Wound - Open/Non-Healing Wound Gram Stain - Final 01/31/18 03:04 Wound - Open/Non-Healing Wound Wound Culture - Preliminary No growth-Final to follow Laboratory Results 01/31/18 16:53: POC Glucose 145 H 01/31/18 22:16: POC Glucose 143 H 02/01/18 05:38: POC Glucose 116 H 02/01/18 06:45: WBC 6.4, RBC 3.70 L, Hgb 9.7 L, Hct 30.1 L, MCV 81.4, MCH 26.2 L, MCHC 32.2, RDW 14.0, RDW Differential 40.3, Plt Count 225, MPV 9.4, Immature Gran % (Auto) 0.200, Neut % (Auto) 73.2 H, Lymph % (Auto) 16.0 L, [place] % (Auto) 7.8, Eos % (Auto) 2.5, Baso % (Auto) 0.3, Absolute Neuts (auto) 4.7, Absolute Lymphs (auto) 1.03, Total Counted Not Reportable 02/01/18 06:45: Sodium 139, Potassium 4.0, Chloride 103, Carbon Dioxide 23.0, Anion Gap 13, BUN 29 H, Creatinine 4.27 H, Estim Creat Clear Calc 16.07, Est GFR (MDRD) Af Amer 15 L, Est GFR (MDRD) Non-Af 12 L, BUN/Creatinine Ratio 6.8 L, Glucose 126 H, Calcium 8.3 L 02/01/18 11:46: POC Glucose 148 H 02/01/18 14:30: Eos Smear Total Cells Pending Current Medications Albuterol Sulfate (Ventolin Aerosols) 2.5 mg INHALATION Q4H PRN PRN PRN Reason: SOB &/OR WHEEZING Albuterol/Ipratropium (Duoneb) 3 ml INHALATION Q6H.RT PRN PRN Reason: SOB &/OR WHEEZING Amlodipine Besylate (Norvasc) 5 mg PO DAILY [facility] Dextrose (D50w Syringe) 0 gm IV X1 PRN; Protocol PRN Reason: Hypoglycemia Doxycycline Monohydrate (Doxycycline) 100 mg PO BID [facility] Last Admin: 02/01/18 14:20 Dose: 100 mg Glucagon () 1 mg IM .X1 PRN PRN Reason: Hypoglycemia Heparin Sodium (Porcine) (Heparin Na) 5,000 unit SC Q8 TATIANA Last Admin: 02/01/18 14:20 Dose: 5,000 unit Insulin Human Lispro (Humalog Kwikpen (Bkc)) 0 unit SQ ACHS TATIANA; Protocol Last Admin: 02/01/18 11:46 Dose: Not Given Magnesium Hydroxide (Milk Of Magnesia) 30 ml PO DAILY PRN PRN PRN Reason: Constipation Metoclopramide HCl (Reglan) 10 mg IV Q8H PRN PRN PRN Reason: NAUSEA/VOMITING Last Admin: 02/01/18 09:39 Dose: 10 mg Nicotine (Nicoderm Cq (Pbkc)) 21 mg TRANSDERM. DAILY [facility] Last Admin: 02/01/18 09:41 Dose: 21 mg Ondansetron HCl (Zofran) 4 mg IV Q6H PRN PRN PRN Reason: NAUSEA/VOMITING Last Admin: 01/31/18 08:24 Dose: 4 mg Prochlorperazine Edisylate (Compazine Iv) 5 - 10 mg IV Q6H PRN PRN PRN Reason: NAUSEA/VOMITING Last Admin: 01/31/18 13:14 Dose: 10 mg Sodium Chloride () 5 - 30 ml IV UD PRN PRN Reason: SALINE FLUSH Last Admin: 01/31/18 08:24 Dose: 10 ml Medical Necessity - Tobacco Use Smoking Status: Current every day smoker Assessment/Plan All Active Problems (Last Reviewed 01/31/18 @ 01:49 by Giancarlo Burt MD) MITRA (acute kidney injury) (Acute) Intractable nausea and vomiting (Acute) Surgical site infection (Acute) 1. Surgical site infection of left partial nephrectomy for renal ca/MITRA - MRSA on her [facility] labs - Currently on IVF and repeat creatinine is pending - c/s to ID and nephrology for infection and MITRA management when she was admitted - She is currently making urine and her K was normal on admit, so no dialysis and this is prerenal to likely ATN at this point - Cr went from 4.88 to 4.27 - c/w Doxycycline per ID - will attempt to obtain records from the [facility], otherwise may need to repeat CT here to assess for intra-abdominal abscess 2. DM2 - Hold metformin and glipizide - SSI and will adjust as needed 3. Tobacco abuse - advised cessation - Nicotine patch provided 4. Asthma - stable - c/w home inhalers DVT: Heparin Diet: DM Code Visit Inpatient E&M: 60838 Subs Hosp L2
--- NOTE | 2018-02-01 15:50 | PN_ITS ---
Patient Problems: Active and Suspected Problems (Last Reviewed 01/31/18 @ 01:49 by Giancarlo Burt MD) MITRA (acute kidney injury) (Acute) Intractable nausea and vomiting (Acute) Surgical site infection (Acute) Subjective: Feels much better today, no nausea, sitting up in bed, more communicative today Vitals/I&O's: Vital Signs Temp Pulse Resp BP Pulse Ox 98.1 F 90 16 163/100 H 98 02/01/18 14:21 02/01/18 14:21 02/01/18 14:21 02/01/18 14:21 02/01/18 14:21 Oxygen Delivery Method Room Air Weight: 304 lb 14.389 oz Body Mass Index (BMI) 50.7 Intake and Output for Last 24 Hours 01/30/18 01/31/18 02/01/18 23:59 23:59 23:59 Intake Total 4445 / 4445 1142 / 1142 Output Total 1650 / 1650 900 / 900 Balance 2795 / 2795 242 / 242 General: Alert, Oriented x3, Cooperative, No apparent distress HEENT: Atraumatic, EOMI, Normocephalic Oral: Moist Mucosa Neck: Supple, No JVD Lungs: Clear to auscultation, Normal air movement, No rhonchi, No wheeze, No rales Cardiovascular: Regular rate, Regular Rhythm, Normal S1, Normal S2, No murmurs Abdomen: Soft, Non Tender, Non-Distended, No Hepato-splenomegaly, - - active purulent drainage from the left nephrectomy site, improved Psych/Mental Status: Normal Affect, Appropriate Microbiology Past 72 Hours 01/31/18 03:04 Wound - Open/Non-Healing Wound Gram Stain - Final 01/31/18 03:04 Wound - Open/Non-Healing Wound Wound Culture - Preliminary No growth-Final to follow Laboratory Results 01/31/18 16:53: POC Glucose 145 H 01/31/18 22:16: POC Glucose 143 H 02/01/18 05:38: POC Glucose 116 H 02/01/18 06:45: WBC 6.4, RBC 3.70 L, Hgb 9.7 L, Hct 30.1 L, MCV 81.4, MCH 26.2 L , MCHC 32.2, RDW 14.0, RDW Differential 40.3, Plt Count 225, MPV 9.4, Immature Gran % (Auto) 0.200, Neut % (Auto) 73.2 H, Lymph % (Auto) 16.0 L, [place] % (Auto) 7.8, Eos % (Auto) 2.5, Baso % (Auto) 0.3, Absolute Neuts (auto) 4.7, Absolute Lymphs (auto) 1.03, Total Counted Not Reportable 02/01/18 06:45: Sodium 139, Potassium 4.0, Chloride 103, Carbon Dioxide 23.0, Anion Gap 13, BUN 29 H, Creatinine 4.27 H, Estim Creat Clear Calc 16.07, Est GFR (MDRD) Af Amer 15 L, Est GFR (MDRD) Non-Af 12 L, BUN/Creatinine Ratio 6.8 L, Glucose 126 H, Calcium 8.3 L 02/01/18 11:46: POC Glucose 148 H 02/01/18 14:30: Eos Smear Total Cells Pending Current Medications Albuterol Sulfate (Ventolin Aerosols) 2.5 mg INHALATION Q4H PRN PRN PRN Reason: SOB &/OR WHEEZING Albuterol/Ipratropium (Duoneb) 3 ml INHALATION Q6H.RT PRN PRN Reason: SOB &/OR WHEEZING Amlodipine Besylate (Norvasc) 5 mg PO DAILY [facility] Dextrose (D50w Syringe) 0 gm IV X1 PRN; Protocol PRN Reason: Hypoglycemia Doxycycline Monohydrate (Doxycycline) 100 mg PO BID [facility] Last Admin: 02/01/18 14:20 Dose: 100 mg Glucagon () 1 mg IM .X1 PRN PRN Reason: Hypoglycemia Heparin Sodium (Porcine) (Heparin Na) 5,000 unit SC Q8 [facility] Last Admin: 02/01/18 14:20 Dose: 5,000 unit Insulin Human Lispro (Humalog Kwikpen (Bkc)) 0 unit SQ ACHS [facility]; Protocol Last Admin: 02/01/18 11:46 Dose: Not Given Magnesium Hydroxide (Milk Of Magnesia) 30 ml PO DAILY PRN PRN PRN Reason: Constipation Metoclopramide HCl (Reglan) 10 mg IV Q8H PRN PRN PRN Reason: NAUSEA/VOMITING Last Admin: 02/01/18 09:39 Dose: 10 mg Nicotine (Nicoderm Cq (Pbkc)) 21 mg TRANSDERM. DAILY [facility] Last Admin: 02/01/18 09:41 Dose: 21 mg Ondansetron HCl (Zofran) 4 mg IV Q6H PRN PRN PRN Reason: NAUSEA/VOMITING Last Admin: 01/31/18 08:24 Dose: 4 mg Prochlorperazine Edisylate (Compazine Iv) 5 - 10 mg IV Q6H PRN PRN PRN Reason: NAUSEA/VOMITING Last Admin: 01/31/18 13:14 Dose: 10 mg Sodium Chloride () 5 - 30 ml IV UD PRN PRN Reason: SALINE FLUSH Last Admin: 01/31/18 08:24 Dose: 10 ml Medical Necessity - Tobacco Use Smoking Status: Current every day smoker Assessment/Plan All Active Problems (Last Reviewed 01/31/18 @ 01:49 by Giancarlo Burt MD) MITRA (acute kidney injury) (Acute) Intractable nausea and vomiting (Acute) Surgical site infection (Acute) 1. Surgical site infection of left partial nephrectomy for renal ca/MTIRA - MRSA on her [facility] labs - Currently on IVF and repeat creatinine is pending - c/s to ID and nephrology for infection and MITRA management when she was admitted - She is currently making urine and her K was normal on admit, so no dialysis and this is prerenal to likely ATN at this point - Cr went from 4.88 to 4.27 - c/w Doxycycline per ID - will attempt to obtain records from the [facility], otherwise may need to repeat CT here to assess for intra-abdominal abscess 2. DM2 - Hold metformin and glipizide - SSI and will adjust as needed 3. Tobacco abuse - advised cessation - Nicotine patch provided 4. Asthma - stable - c/w home inhalers DVT: Heparin Diet: DM Code Visit Inpatient E&M: 52417 Subs Hosp L2
[2018-02-01 17:00] LABS: Bedside Glucose 136 mg/dL (70-110)
[2018-02-01] MEDS: amLODIPine 5 MG Tablet PO (18:50)
[2018-02-01] MEDS: Insulin Lispro 100 UNIT/ML INSULN.PEN SQ (21:37)
[2018-02-01 21:56] LABS: Bedside Glucose 154 mg/dL (70-110)
[2018-02-01 23:45] LABS: Bedside Glucose 127 mg/dL (70-110)
[2018-02-02] MEDS: Ondansetron 4 MG/2 ML Vial IV ×2 (00:07→11:31)
[2018-02-02] MEDS: cloNIDine HCl 0.2 MG Tablet PO (00:07)
[2018-02-02] MEDS: 0.9% NaCl Peripheral Flush Adult/Peds IV ×2 (00:07→11:31)
--- NOTE | 2018-02-02 00:10 | NURSING ---
Sister came to nurses desk stating the patient had a flushed face and a headache. This nurse to bedside to assess VS and BG. MD notified. 0.2mg PO Catapres given d/t elevated BP. Advised patient that I would reassess VS in 1 hour following admin of med. Zofran also given d/t gastric burning @ this time. Sister remains at bedside. Lights dimmed, patient right lateral in bed.
[2018-02-02 01:21] VITALS: BP 154/76; PULSE 92; RESP 16; TEMP 36.8; O2SAT 93
[2018-02-02 05:55] VITALS: BP 160/91; PULSE 80; RESP 16; TEMP 36.8; O2SAT 96
[2018-02-02 06:06] LABS: Bedside Glucose 148 mg/dL (70-110)
[2018-02-02] MEDS: Heparin Injection (Vial) 5,000 UNIT/ML VIAL 5000 UNIT SC ×3 (06:07→21:58)
[2018-02-02 06:33] LABS: BUN 25 mg/dL (7-18); BUN/Creat Ratio 6.1 RATIO (10-20); Calcium,Total 8.3 mg/dL (8.5-10.1); Chloride 105 mmol/L (98-107); Creatinine, Serum 4.07 mg/dL (0.55-1.02); EST Glomerular Filtration Rate 13 mL/min (>60); Est Glom Filt Rate - Afr Amer 16 mL/min (>60); Estimated Creatinine Clearance 16.86 ml/min; Glucose 148 mg/dL (74-106); Phosphorus 4.3 mg/dL (2.5-4.9); Potassium 4.2 mmol/L (3.5-5.1); Sodium Level 137 mmol/L (136-145)
[2018-02-02 07:53] VITALS: O2SAT 95
[2018-02-02] MEDS: Doxycycline 100 MG CAPSULE PO ×2 (08:27→21:58)
[2018-02-02] MEDS: amLODIPine 5 MG Tablet PO (08:27)
[2018-02-02 08:30] VITALS: BP 158/94; PULSE 85; RESP 16; TEMP 36.6; O2SAT 98
--- NOTE | 2018-02-02 09:33 | PN.RENAL_ITS ---
Patient Problems: Active and Suspected Problems (Last Reviewed 01/31/18 @ 01:49 by Giancarlo Burt MD) Renal cell cancer (Acute) Hx of partial nephrectomy (Acute) MITRA (acute kidney injury) (Acute) Intractable nausea and vomiting (Acute) Surgical site infection (Acute) Subjective: still waiting on urine samples, episode of diarrhea. Urine output improving with slow improvement in renal fxn. sister at bedside. No SOB, nausea or vomiting. Appetite improving, tolerating diet. - Physical Exam General: Alert, Oriented x3, Cooperative, No apparent distress Oral: Dry Mucosa Lungs: Clear to auscultation Cardiovascular: Regular rate Abdomen: Bowel Sounds Present, Soft, Non Tender, Non-Distended, Obese Extremities: No edema Neurological: Cranial nerves II-XII grossly intact Psych/Mental Status: Normal Affect, Appropriate, Alert and oriented to time, place, person, mood and affect Vital Signs Temp Pulse Resp BP Pulse Ox 98.2 F 80 16 160/91 H 95 02/02/18 05:55 02/02/18 05:55 02/02/18 05:55 02/02/18 05:55 02/02/18 07:53 Oxygen Delivery Method Room Air Weight: 138.3 kg Body Mass Index (BMI) 50.7 Intake and Output for Last 24 Hours 01/31/18 02/01/18 02/02/18 23:59 23:59 23:59 Intake Total 4445 / 4445 1502 / 1502 120 / 120 Output Total 1650 / 1650 900 / 900 500 / 500 Balance 2795 / 2795 602 / 602 -380 / -380 Microbiology Past 72 Hours 01/31/18 03:04 Gram Stain - Final Wound - Open/Non-Healing Wound Wound Culture - Preliminary No growth-Final to follow Laboratory Tests Past 24 Hrs 02/01/18 02/02/18 14:30 05:28 Eos Smear Total Cells Pending Sodium 137 Potassium 4.2 Chloride 105 Carbon Dioxide 26.0 BUN 25 H Creatinine 4.07 H Estim Creat Clear Calc 16.86 Est GFR (MDRD) Af Amer 16 L Est GFR (MDRD) Non-Af 13 L BUN/Creatinine Ratio 6.1 L Glucose 148 H Calcium 8.3 L Phosphorus 4.3 Albumin 2.0 L POC Glucose 02/02/18 02/01/18 02/01/18 06:01 23:35 21:34 POC Glucose 148 H 127 H 154 H 02/01/18 02/01/18 16:47 11:46 POC Glucose 136 H 148 H Medical Necessity - Tobacco Use Smoking Status: Current every day smoker Assessment/Plan All Active Problems (Last Reviewed 01/31/18 @ 01:49 by Giancarlo Burt MD) Renal cell cancer (Acute) Hx of partial nephrectomy (Acute) MITRA (acute kidney injury) (Acute) Intractable nausea and vomiting (Acute) Surgical site infection (Acute) 1. Acute renal failure prerenal event from dehydration vs intrinsic renal failure from antibiotics, metformin use in presence of renal failure. Creatinine improving with iv fluids but slowly suggestive of intrinsic renal failure. Urine output improving. No indication for [employer]. Continue to hold metformin, bactrim. Avoid nephrotoxins. Await urine sodium, creatinine, eosinophils. Check bladder scan r/o urinary retention. DW pt may need renal bx if renal fxn does not improve back to baseline. Will wait on urine indices first. 2. Incisional drainage s/p partial open nephrectomy on left for cancer. Continue dressing changes. Afebrile without leukocytosis. 3. DM2 avoid metformin. Primary service managing. 4. HTN add amlodipine, adjust dose as needed. 5. Morbid obesity 6. Renal cell cancer s/p partial left nephrectomy 7. Hx UTI/pyelonephritis
[2018-02-02 10:37] LABS: Mucous, Urine 0 SEEN /hpf (<or=2+); White Blood Cells 0 SEEN /hpf (0-5)
[2018-02-02 10:38] LABS: Glucose, Dipstick Normal (Normal); Ketone-Dipstick Negative (Negative); Leukocyte Esterase-Dipstick 25 /ul (Negative); Nitrite-Dipstick Negative (Negative); Occult Blood-Urine 25 /ul (Negative); Protein-Dipstick 15 mg/dl (Negative); Urine Bilirubin Dipstick Negative (Negative); Urine Urobilinogen Normal (Normal); Urine pH 6.5 (5.0 - 8.0)
[2018-02-02 10:40] LABS: Color, Urine Yellow (Yellow); Urine Clarity Clear (Clear)
[2018-02-02 10:45] LABS: Bacteria RARE /hpf (None Seen); Red Blood Cells-Urine 0-5 SEEN /hpf (0-5); Squamous Epithelial Cells - UA 0-5 SEEN /hpf (5-10)
--- NOTE | 2018-02-02 10:51 | PCM.PN.ID ---
Patient Problems: Active and Suspected Problems (Last Reviewed 01/31/18 @ 01:49 by Giancarlo Burt MD) Renal cell cancer (Acute) Hx of partial nephrectomy (Acute) MITRA (acute kidney injury) (Acute) Intractable nausea and vomiting (Acute) Surgical site infection (Acute) Subjective: Feeling better, nausea improved. No fever. Urine output improving. - Physical Exam General: Alert, Cooperative, No apparent distress Lungs: Clear to auscultation, Normal air movement Cardiovascular: Regular rate, Regular Rhythm Abdomen: Soft, Non Tender, Non-Distended Skin: Incision - damp dressing on L side Vital Signs Temp Pulse Resp BP Pulse Ox 97.9 F 85 16 158/94 H 98 02/02/18 08:30 02/02/18 08:30 02/02/18 08:30 02/02/18 08:30 02/02/18 08:30 Oxygen Delivery Method Room Air Weight: 138.3 kg Body Mass Index (BMI) 50.7 Intake and Output for Last 24 Hours 01/31/18 02/01/18 02/02/18 23:59 23:59 23:59 Intake Total 4445 / 4445 1502 / 1502 120 / 120 Output Total 1650 / 1650 900 / 900 500 / 500 Balance 2795 / 2795 602 / 602 -380 / -380 Microbiology Past 72 Hours 01/31/18 03:04 Gram Stain - Final Wound - Open/Non-Healing Wound Wound Culture - Preliminary No growth-Final to follow Laboratory Tests Past 24 Hrs 02/01/18 02/02/18 02/02/18 14:30 05:28 10:25 Eos Smear Total Cells Pending Sodium 137 Potassium 4.2 Chloride 105 Carbon Dioxide 26.0 BUN 25 H Creatinine 4.07 H Estim Creat Clear Calc 16.86 Est GFR (MDRD) Af Amer 16 L Est GFR (MDRD) Non-Af 13 L BUN/Creatinine Ratio 6.1 L Glucose 148 H Calcium 8.3 L Phosphorus 4.3 Albumin 2.0 L Urine Color Yellow Urine Clarity Clear Urine pH 6.5 Ur Specific [place] 1.010 Urine Protein 15 H Urine Glucose (UA) Normal Urine Ketones Negative Urine Occult Blood 25 H Urine Nitrite Negative Urine Bilirubin Negative Urine Urobilinogen Normal Ur Leukocyte Esterase 25 H Urine RBC 0-5 SEEN Urine WBC 0 SEEN Ur Squamous Epith Cells 0-5 SEEN Urine Bacteria RARE Urine Mucus 0 SEEN U Random Total Protein Ur Random Sodium Urine Creatinine 02/02/18 02/02/18 02/02/18 10:25 10:25 10:25 Eos Smear Total Cells Sodium Potassium Chloride Carbon Dioxide BUN Creatinine Estim Creat Clear Calc Est GFR (MDRD) Af Amer Est GFR (MDRD) Non-Af BUN/Creatinine Ratio Glucose Calcium Phosphorus Albumin Urine Color Urine Clarity Urine pH Ur Specific [place] Urine Protein Urine Glucose (UA) Urine Ketones Urine Occult Blood Urine Nitrite Urine Bilirubin Urine Urobilinogen Ur Leukocyte Esterase Urine RBC Urine WBC Ur Squamous Epith Cells Urine Bacteria Urine Mucus U Random Total Protein Pending Ur Random Sodium Pending Urine Creatinine Pending POC Glucose 02/02/18 02/01/18 02/01/18 06:01 23:35 21:34 POC Glucose 148 H 127 H 154 H 02/01/18 02/01/18 16:47 11:46 POC Glucose 136 H 148 H Medical Necessity - Tobacco Use Smoking Status: Current every day smoker Route of nutrition/ use of supplements: [] Nutritional Intake: [] IV Site: [] Serrano Catheter: [] - Assessment/Plan Antibiotics: [] Assessment/Plan: [] Active and Suspected Problems (Last Reviewed 01/31/18 @ 01:49 by Giancarlo Burt MD) MITRA (acute kidney injury) (Acute) Intractable nausea and vomiting (Acute) MITRA - neph consulted. Suspect bactrim as contributor MRSA surgical site infection s/p L partial nephrectomy - Cont doxy. CT with ? small collection near L kidney, possible seroma. Cx here pending. No fever, normal wbc. Will follow
[2018-02-02 10:52] LABS: Protein, Urine (Random) 15.9 mg/dL (<11.9)
[2018-02-02 10:55] LABS: Urine Sodium 71 mmol/L (Not Establ.)
[2018-02-02] MEDS: Insulin Lispro 100 UNIT/ML INSULN.PEN SQ ×3 (11:32→21:58)
[2018-02-02 11:56] LABS: Bedside Glucose 182 mg/dL (70-110)
--- NOTE | 2018-02-02 12:19 | PN_ITS ---
Patient Problems: Active and Suspected Problems (Last Reviewed 01/31/18 @ 01:49 by Giancarlo Burt MD) Renal cell cancer (Acute) Hx of partial nephrectomy (Acute) MITRA (acute kidney injury) (Acute) Intractable nausea and vomiting (Acute) Surgical site infection (Acute) Subjective: Has a headache today otherwise she feels better than she did when she came in Vitals/I&O's: Vital Signs Temp Pulse Resp BP Pulse Ox 97.9 F 85 16 158/94 H 98 02/02/18 08:30 02/02/18 08:30 02/02/18 08:30 02/02/18 08:30 02/02/18 08:30 Oxygen Delivery Method Room Air Weight: 304 lb 14.389 oz Body Mass Index (BMI) 50.7 Intake and Output for Last 24 Hours 01/31/18 02/01/18 02/02/18 23:59 23:59 23:59 Intake Total 4445 / 4445 1502 / 1502 120 / 120 Output Total 1650 / 1650 900 / 900 500 / 500 Balance 2795 / 2795 602 / 602 -380 / -380 General: Alert, Oriented x3, Cooperative, No apparent distress HEENT: Atraumatic, EOMI, Normocephalic Oral: Moist Mucosa Neck: Supple, No JVD Lungs: Clear to auscultation, Normal air movement, No rhonchi, No wheeze, No rales Cardiovascular: Regular rate, Regular Rhythm, Normal S1, Normal S2, No murmurs Abdomen: Soft, Non Tender, Non-Distended, No Hepato-splenomegaly, - - active purulent drainage from the left nephrectomy site, improved Psych/Mental Status: Normal Affect, Appropriate Microbiology Past 72 Hours 01/31/18 03:04 Wound - Open/Non-Healing Wound Gram Stain - Final 01/31/18 03:04 Wound - Open/Non-Healing Wound Wound Culture - Preliminary No growth-Final to follow Laboratory Results 02/01/18 14:30: Eos Smear Total Cells Pending 02/01/18 16:47: POC Glucose 136 H 02/01/18 21:34: POC Glucose 154 H 02/01/18 23:35: POC Glucose 127 H 02/02/18 05:28: Sodium 137, Potassium 4.2, Chloride 105, Carbon Dioxide 26.0, BUN 25 H, Creatinine 4.07 H, Estim Creat Clear Calc 16.86, Est GFR (MDRD) Af Amer 16 L, Est GFR (MDRD) Non-Af 13 L, BUN/Creatinine Ratio 6.1 L, Glucose 148 H , Calcium 8.3 L, Phosphorus 4.3, Albumin 2.0 L 02/02/18 06:01: POC Glucose 148 H 02/02/18 10:25: Urine Color Yellow, Urine Clarity Clear, Urine pH 6.5, Ur Specific [place] 1.010, Urine Protein 15 H, Urine Glucose (UA) Normal, Urine Ketones Negative, Urine Occult Blood 25 H, Urine Nitrite Negative, Urine Bilirubin Negative, Urine Urobilinogen Normal, Ur Leukocyte Esterase 25 H, Urine RBC 0-5 SEEN, Urine WBC 0 SEEN, Ur Squamous Epith Cells 0-5 SEEN, Urine Bacteria RARE, Urine Mucus 0 SEEN 02/02/18 10:25: Urine Creatinine 29.60 02/02/18 10:25: Ur Random Sodium 71 02/02/18 10:25: U Random Total Protein 15.9 H 02/02/18 11:31: POC Glucose 182 H Current Medications Albuterol Sulfate (Ventolin Aerosols) 2.5 mg INHALATION Q4H PRN PRN PRN Reason: SOB &/OR WHEEZING Albuterol/Ipratropium (Duoneb) 3 ml INHALATION Q6H.RT PRN PRN Reason: SOB &/OR WHEEZING Amlodipine Besylate (Norvasc) 5 mg PO DAILY [facility] Last Admin: 02/02/18 08:27 Dose: 5 mg Dextrose (D50w Syringe) 0 gm IV X1 PRN; Protocol PRN Reason: Hypoglycemia Doxycycline Monohydrate (Doxycycline) 100 mg PO BID [facility] Last Admin: 02/02/18 08:27 Dose: 100 mg Glucagon () 1 mg IM .X1 PRN PRN Reason: Hypoglycemia Heparin Sodium (Porcine) (Heparin Na) 5,000 unit SC Q8 [facility] Last Admin: 02/02/18 06:07 Dose: 5,000 unit Insulin Human Lispro (Humalog Kwikpen (Bkc)) 0 unit SQ ACHS [facility]; Protocol Last Admin: 02/02/18 11:32 Dose: 1 u Magnesium Hydroxide (Milk Of Magnesia) 30 ml PO DAILY PRN PRN PRN Reason: Constipation Metoclopramide HCl (Reglan) 10 mg IV Q8H PRN PRN PRN Reason: NAUSEA/VOMITING Last Admin: 02/01/18 09:39 Dose: 10 mg Nicotine (Nicoderm Cq (Pbkc)) 21 mg TRANSDERM. DAILY [facility] Last Admin: 02/02/18 08:28 Dose: 21 mg Ondansetron HCl (Zofran) 4 mg IV Q6H PRN PRN PRN Reason: NAUSEA/VOMITING Last Admin: 02/02/18 11:31 Dose: 4 mg Prochlorperazine Edisylate (Compazine Iv) 5 - 10 mg IV Q6H PRN PRN PRN Reason: NAUSEA/VOMITING Last Admin: 01/31/18 13:14 Dose: 10 mg Sodium Chloride () 5 - 30 ml IV UD PRN PRN Reason: SALINE FLUSH Last Admin: 02/02/18 11:31 Dose: 10 ml Medical Necessity - Tobacco Use Smoking Status: Current every day smoker Assessment/Plan All Active Problems (Last Reviewed 01/31/18 @ 01:49 by Giancarlo Burt MD) Renal cell cancer (Acute) Hx of partial nephrectomy (Acute) MITRA (acute kidney injury) (Acute) Intractable nausea and vomiting (Acute) Surgical site infection (Acute) 1. Surgical site infection of left partial nephrectomy for renal ca/MITRA - MRSA on her [facility] labs - Currently on IVF with improving creatinine - c/s to ID and nephrology for infection and MITRA management when she was admitted - Since she has continued purulent drainage and the fluid collection at her nephrectomy site, will discuss with radiology about possibly inserting a drain if thats where it is coming from - c/w Doxycycline per ID 2. DM2 - Hold metformin and glipizide - SSI and will adjust as needed 3. Tobacco abuse - advised cessation - Nicotine patch provided 4. Asthma - stable - c/w home inhalers DVT: Heparin Diet: DM Code Visit Inpatient E&M: 38916 Subs Hosp L2
[2018-02-02 14:44] LABS: Eosinophil Ct. Urine No Eosinophils Seen % (.)
[2018-02-02 15:20] VITALS: BP 176/92; PULSE 84; RESP 16; TEMP 36.8; O2SAT 98
[2018-02-02 16:35] LABS: Bedside Glucose 175 mg/dL (70-110)
[2018-02-02 21:55] VITALS: BP 153/75; PULSE 91; RESP 16; TEMP 36.8; O2SAT 99
[2018-02-02 22:25] LABS: Bedside Glucose 230 mg/dL (70-110)
[2018-02-03 03:49] VITALS: BP 143/76; PULSE 91; RESP 16; TEMP 36.9; O2SAT 94
[2018-02-03] MEDS: Heparin Injection (Vial) 5,000 UNIT/ML VIAL 5000 UNIT SC ×2 (06:22→15:13)
[2018-02-03] MEDS: Insulin Lispro 100 UNIT/ML INSULN.PEN SQ ×4 (06:23→21:07)
[2018-02-03 06:31] LABS: Bedside Glucose 178 mg/dL (70-110)
[2018-02-03 07:28] LABS: BUN 24 mg/dL (7-18); BUN/Creat Ratio 5.7 RATIO (10-20); Calcium,Total 8.3 mg/dL (8.5-10.1); Chloride 105 mmol/L (98-107); Creatinine, Serum 4.18 mg/dL (0.55-1.02); EST Glomerular Filtration Rate 13 mL/min (>60); Est Glom Filt Rate - Afr Amer 15 mL/min (>60); Estimated Creatinine Clearance 16.42 ml/min; Glucose 150 mg/dL (74-106); Phosphorus 4.4 mg/dL (2.5-4.9); Potassium 4.4 mmol/L (3.5-5.1); Sodium Level 137 mmol/L (136-145)
[2018-02-03 07:40] VITALS: O2SAT 95
[2018-02-03 09:15] VITALS: BP 130/81; PULSE 95; RESP 16; TEMP 36.8; O2SAT 99
[2018-02-03] MEDS: amLODIPine 5 MG Tablet PO (10:27)
[2018-02-03] MEDS: Doxycycline 100 MG CAPSULE PO ×2 (10:27→21:07)
[2018-02-03 11:37] VITALS: BP 124/103; PULSE 87; RESP 16; TEMP 36.5; O2SAT 100
[2018-02-03 11:41] LABS: Bedside Glucose 253 mg/dL (70-110)
--- NOTE | 2018-02-03 12:30 | PCM.PN.ID ---
Patient Problems: Active and Suspected Problems (Last Reviewed 01/31/18 @ 01:49 by Giancarlo Burt MD) MITRA (acute kidney injury) (Acute) Intractable nausea and vomiting (Acute) Surgical site infection (Acute) Subjective: Nausea better, no fever. Still drainage from side. - Physical Exam General: Alert, Cooperative Lungs: Clear to auscultation, Normal air movement Cardiovascular: Regular rate, Regular Rhythm Abdomen: Soft, Non Tender, Non-Distended Skin: Ulcer/ Wound - L side, drainage present Vital Signs Temp Pulse Resp BP Pulse Ox 97.7 F L 87 16 124/103 H 100 02/03/18 11:37 02/03/18 11:37 02/03/18 11:37 02/03/18 11:37 02/03/18 11:37 Oxygen Delivery Method Room Air Weight: 138.3 kg Body Mass Index (BMI) 50.7 Intake and Output for Last 24 Hours 02/01/18 02/02/18 02/03/18 23:59 23:59 23:59 Intake Total 1502 / 1502 1120 / 1120 1400 / 1400 Output Total 900 / 900 500 / 500 1000 / 1000 Balance 602 / 602 620 / 620 400 / 400 Microbiology Past 72 Hours 01/31/18 03:04 Gram Stain - Final Wound - Open/Non-Healing Wound Wound Culture - Preliminary Gram positive yen 01/30/18 22:15 Blood Culture - Preliminary Blood Culture (Wb) - Anticubital Right No growth in 48 hours. Laboratory Tests Past 24 Hrs 02/01/18 02/03/18 14:30 05:40 Eos Smear Total Cells No Eosinophils Seen Sodium 137 Potassium 4.4 Chloride 105 Carbon Dioxide 22.0 BUN 24 H Creatinine 4.18 H Estim Creat Clear Calc 16.42 Est GFR (MDRD) Af Amer 15 L Est GFR (MDRD) Non-Af 13 L BUN/Creatinine Ratio 5.7 L Glucose 150 H Calcium 8.3 L Phosphorus 4.4 Albumin 2.0 L POC Glucose 02/03/18 02/03/18 02/02/18 11:28 06:23 21:57 POC Glucose 253 H 178 H 230 H 02/02/18 16:29 POC Glucose 175 H Medical Necessity - Tobacco Use Smoking Status: Current every day smoker Route of nutrition/ use of supplements: [] Nutritional Intake: [] IV Site: [] Serrano Catheter: [] - Assessment/Plan Antibiotics: [] Assessment/Plan: [] Active and Suspected Problems (Last Reviewed 01/31/18 @ 01:49 by Giancarlo Burt MD) MITRA (acute kidney injury) (Acute) Intractable nausea and vomiting (Acute) MITRA - neph consulted. Suspect bactrim as contributor, cr stable today MRSA surgical site infection s/p L partial nephrectomy - Cont doxy. CT with ? small collection near L kidney, possible seroma. Cx here with GPR. Surgery to see about possible debridement. Will follow
--- NOTE | 2018-02-03 12:45 | PCM.PN.REN ---
Patient Problems: Active and Suspected Problems (Last Reviewed 01/31/18 @ 01:49 by Giancarlo Burt MD) MITRA (acute kidney injury) (Acute) Intractable nausea and vomiting (Acute) Surgical site infection (Acute) - Physical Exam Vital Signs Temp Pulse Resp BP Pulse Ox 97.7 F L 87 16 124/103 H 100 02/03/18 11:37 02/03/18 11:37 02/03/18 11:37 02/03/18 11:37 02/03/18 11:37 Oxygen Delivery Method Room Air Weight: 138.3 kg Body Mass Index (BMI) 50.7 Intake and Output for Last 24 Hours 02/01/18 02/02/18 02/03/18 23:59 23:59 23:59 Intake Total 1502 / 1502 1120 / 1120 1400 / 1400 Output Total 900 / 900 500 / 500 1000 / 1000 Balance 602 / 602 620 / 620 400 / 400 Microbiology Past 72 Hours 01/31/18 03:04 Gram Stain - Final Wound - Open/Non-Healing Wound Wound Culture - Preliminary Gram positive yen 01/30/18 22:15 Blood Culture - Preliminary Blood Culture (Wb) - Anticubital Right No growth in 48 hours. Laboratory Tests Past 24 Hrs 02/01/18 02/03/18 14:30 05:40 Eos Smear Total Cells No Eosinophils Seen Sodium 137 Potassium 4.4 Chloride 105 Carbon Dioxide 22.0 BUN 24 H Creatinine 4.18 H Estim Creat Clear Calc 16.42 Est GFR (MDRD) Af Amer 15 L Est GFR (MDRD) Non-Af 13 L BUN/Creatinine Ratio 5.7 L Glucose 150 H Calcium 8.3 L Phosphorus 4.4 Albumin 2.0 L POC Glucose 02/03/18 02/03/18 02/02/18 11:28 06:23 21:57 POC Glucose 253 H 178 H 230 H 02/02/18 16:29 POC Glucose 175 H Medical Necessity - Tobacco Use Smoking Status: Current every day smoker Assessment/Plan All Active Problems (Last Reviewed 01/31/18 @ 01:49 by Giancarlo Burt MD) Renal cell cancer (Acute) Hx of partial nephrectomy (Acute) MITRA (acute kidney injury) (Acute) Intractable nausea and vomiting (Acute) Surgical site infection (Acute)
--- NOTE | 2018-02-03 12:53 | PCM.PN.HOSP ---
Patient Problems: Active and Suspected Problems (Last Reviewed 01/31/18 @ 01:49 by Giancarlo Burt MD) MITRA (acute kidney injury) (Acute) Intractable nausea and vomiting (Acute) Surgical site infection (Acute) Subjective: Still feels ok, slept ok, continues to have wound drainage Vitals/I&O's: Vital Signs Temp Pulse Resp BP Pulse Ox 97.7 F L 87 16 124/103 H 100 02/03/18 11:37 02/03/18 11:37 02/03/18 11:37 02/03/18 11:37 02/03/18 11:37 Oxygen Delivery Method Room Air Weight: 304 lb 14.389 oz Body Mass Index (BMI) 50.7 Intake and Output for Last 24 Hours 02/01/18 02/02/18 02/03/18 23:59 23:59 23:59 Intake Total 1502 / 1502 1120 / 1120 1400 / 1400 Output Total 900 / 900 500 / 500 1000 / 1000 Balance 602 / 602 620 / 620 400 / 400 General: Alert, Oriented x3, Cooperative, No apparent distress HEENT: Atraumatic, EOMI, Normocephalic Oral: Moist Mucosa Neck: Supple, No JVD Lungs: Clear to auscultation, Normal air movement, No rhonchi, No wheeze, No rales Cardiovascular: Regular rate, Regular Rhythm, Normal S1, Normal S2, No murmurs Abdomen: Soft, Non Tender, Non-Distended, No Hepato-splenomegaly, - - active purulent drainage from the left nephrectomy site, improved Psych/Mental Status: Normal Affect, Appropriate Microbiology Past 72 Hours 01/31/18 03:04 Wound - Open/Non-Healing Wound Gram Stain - Final 01/31/18 03:04 Wound - Open/Non-Healing Wound Wound Culture - Preliminary Gram positive yen 01/30/18 22:15 Blood Culture (Wb) - Anticubital Right Blood Culture - Preliminary No growth in 48 hours. Laboratory Results 02/01/18 14:30: Eos Smear Total Cells No Eosinophils Seen 02/02/18 16:29: POC Glucose 175 H 02/02/18 21:57: POC Glucose 230 H 02/03/18 05:40: Sodium 137, Potassium 4.4, Chloride 105, Carbon Dioxide 22.0, BUN 24 H, Creatinine 4.18 H, Estim Creat Clear Calc 16.42, Est GFR (MDRD) Af Amer 15 L, Est GFR (MDRD) Non-Af 13 L, BUN/Creatinine Ratio 5.7 L, Glucose 150 H, Calcium 8.3 L, Phosphorus 4.4, Albumin 2.0 L 02/03/18 06:23: POC Glucose 178 H 02/03/18 11:28: POC Glucose 253 H Current Medications Albuterol Sulfate (Ventolin Aerosols) 2.5 mg INHALATION Q4H PRN PRN PRN Reason: SOB &/OR WHEEZING Albuterol/Ipratropium (Duoneb) 3 ml INHALATION Q6H.RT PRN PRN Reason: SOB &/OR WHEEZING Amlodipine Besylate (Norvasc) 5 mg PO DAILY [facility] Last Admin: 02/03/18 10:27 Dose: 5 mg Dextrose (D50w Syringe) 0 gm IV X1 PRN; Protocol PRN Reason: Hypoglycemia Doxycycline Monohydrate (Doxycycline) 100 mg PO BID [facility] Last Admin: 02/03/18 10:27 Dose: 100 mg Glucagon () 1 mg IM .X1 PRN PRN Reason: Hypoglycemia Heparin Sodium (Porcine) (Heparin Na) 5,000 unit SC Q8 [place] Last Admin: 02/03/18 06:22 Dose: 5,000 unit Insulin Human Lispro (Humalog Kwikpen (Bkc)) 0 unit SQ ACHS [facility]; Protocol Last Admin: 02/03/18 11:32 Dose: 3 u Magnesium Hydroxide (Milk Of Magnesia) 30 ml PO DAILY PRN PRN PRN Reason: Constipation Metoclopramide HCl (Reglan) 10 mg IV Q8H PRN PRN PRN Reason: NAUSEA/VOMITING Last Admin: 02/01/18 09:39 Dose: 10 mg Nicotine (Nicoderm Cq (Pbkc)) 21 mg TRANSDERM. DAILY [facility] Last Admin: 02/03/18 10:26 Dose: 21 mg Ondansetron HCl (Zofran) 4 mg IV Q6H PRN PRN PRN Reason: NAUSEA/VOMITING Last Admin: 02/02/18 11:31 Dose: 4 mg Prochlorperazine Edisylate (Compazine Iv) 5 - 10 mg IV Q6H PRN PRN PRN Reason: NAUSEA/VOMITING Last Admin: 01/31/18 13:14 Dose: 10 mg Sodium Chloride () 5 - 30 ml IV UD PRN PRN Reason: SALINE FLUSH Last Admin: 02/02/18 11:31 Dose: 10 ml Medical Necessity - Tobacco Use Smoking Status: Current every day smoker Assessment/Plan All Active Problems (Last Reviewed 01/31/18 @ 01:49 by Giancarlo Burt MD) Renal cell cancer (Acute) Hx of partial nephrectomy (Acute) MITRA (acute kidney injury) (Acute) Intractable nausea and vomiting (Acute) Surgical site infection (Acute) 1. Surgical site infection of left partial nephrectomy for renal ca/MITRA now likely ATN - MRSA on her [facility] labs - c/s to ID and nephrology for infection and MITRA management when she was admitted - Since she has continued purulent drainage and the fluid collection at her nephrectomy site - c/s to general surgery - c/w Doxycycline per ID - Good urine output - May need a renal biopsy however would need to be transferred for that since she is too heavy for our table 2. DM2 - Hold metformin and glipizide - SSI and will adjust as needed 3. Tobacco abuse - advised cessation - Nicotine patch provided 4. Asthma - stable - c/w home inhalers DVT: Heparin Diet: DM Code Visit Inpatient E&M: 60652 Subs Hosp L2
--- NOTE | 2018-02-03 12:58 | PN_ITS ---
Patient Problems: Active and Suspected Problems (Last Reviewed 01/31/18 @ 01:49 by Giancarlo Burt MD) MITRA (acute kidney injury) (Acute) Intractable nausea and vomiting (Acute) Surgical site infection (Acute) Subjective: Still feels ok, slept ok, continues to have wound drainage Vitals/I&O's: Vital Signs Temp Pulse Resp BP Pulse Ox 97.7 F L 87 16 124/103 H 100 02/03/18 11:37 02/03/18 11:37 02/03/18 11:37 02/03/18 11:37 02/03/18 11:37 Oxygen Delivery Method Room Air Weight: 304 lb 14.389 oz Body Mass Index (BMI) 50.7 Intake and Output for Last 24 Hours 02/01/18 02/02/18 02/03/18 23:59 23:59 23:59 Intake Total 1502 / 1502 1120 / 1120 1400 / 1400 Output Total 900 / 900 500 / 500 1000 / 1000 Balance 602 / 602 620 / 620 400 / 400 General: Alert, Oriented x3, Cooperative, No apparent distress HEENT: Atraumatic, EOMI, Normocephalic Oral: Moist Mucosa Neck: Supple, No JVD Lungs: Clear to auscultation, Normal air movement, No rhonchi, No wheeze, No rales Cardiovascular: Regular rate, Regular Rhythm, Normal S1, Normal S2, No murmurs Abdomen: Soft, Non Tender, Non-Distended, No Hepato-splenomegaly, - - active purulent drainage from the left nephrectomy site, improved Psych/Mental Status: Normal Affect, Appropriate Microbiology Past 72 Hours 01/31/18 03:04 Wound - Open/Non-Healing Wound Gram Stain - Final 01/31/18 03:04 Wound - Open/Non-Healing Wound Wound Culture - Preliminary Gram positive yen 01/30/18 22:15 Blood Culture (Wb) - Anticubital Right Blood Culture - Preliminary No growth in 48 hours. Laboratory Results 02/01/18 14:30: Eos Smear Total Cells No Eosinophils Seen 02/02/18 16:29: POC Glucose 175 H 02/02/18 21:57: POC Glucose 230 H 02/03/18 05:40: Sodium 137, Potassium 4.4, Chloride 105, Carbon Dioxide 22.0, BUN 24 H, Creatinine 4.18 H, Estim Creat Clear Calc 16.42, Est GFR (MDRD) Af Amer 15 L, Est GFR (MDRD) Non-Af 13 L, BUN/Creatinine Ratio 5.7 L, Glucose 150 H , Calcium 8.3 L, Phosphorus 4.4, Albumin 2.0 L 02/03/18 06:23: POC Glucose 178 H 02/03/18 11:28: POC Glucose 253 H Current Medications Albuterol Sulfate (Ventolin Aerosols) 2.5 mg INHALATION Q4H PRN PRN PRN Reason: SOB &/OR WHEEZING Albuterol/Ipratropium (Duoneb) 3 ml INHALATION Q6H.RT PRN PRN Reason: SOB &/OR WHEEZING Amlodipine Besylate (Norvasc) 5 mg PO DAILY [facility] Last Admin: 02/03/18 10:27 Dose: 5 mg Dextrose (D50w Syringe) 0 gm IV X1 PRN; Protocol PRN Reason: Hypoglycemia Doxycycline Monohydrate (Doxycycline) 100 mg PO BID [facility] Last Admin: 02/03/18 10:27 Dose: 100 mg Glucagon () 1 mg IM .X1 PRN PRN Reason: Hypoglycemia Heparin Sodium (Porcine) (Heparin Na) 5,000 unit SC Q8 [place] Last Admin: 02/03/18 06:22 Dose: 5,000 unit Insulin Human Lispro (Humalog Kwikpen (Bkc)) 0 unit SQ ACHS [facility]; Protocol Last Admin: 02/03/18 11:32 Dose: 3 u Magnesium Hydroxide (Milk Of Magnesia) 30 ml PO DAILY PRN PRN PRN Reason: Constipation Metoclopramide HCl (Reglan) 10 mg IV Q8H PRN PRN PRN Reason: NAUSEA/VOMITING Last Admin: 02/01/18 09:39 Dose: 10 mg Nicotine (Nicoderm Cq (Pbkc)) 21 mg TRANSDERM. DAILY [facility] Last Admin: 02/03/18 10:26 Dose: 21 mg Ondansetron HCl (Zofran) 4 mg IV Q6H PRN PRN PRN Reason: NAUSEA/VOMITING Last Admin: 02/02/18 11:31 Dose: 4 mg Prochlorperazine Edisylate (Compazine Iv) 5 - 10 mg IV Q6H PRN PRN PRN Reason: NAUSEA/VOMITING Last Admin: 01/31/18 13:14 Dose: 10 mg Sodium Chloride () 5 - 30 ml IV UD PRN PRN Reason: SALINE FLUSH Last Admin: 02/02/18 11:31 Dose: 10 ml Medical Necessity - Tobacco Use Smoking Status: Current every day smoker Assessment/Plan All Active Problems (Last Reviewed 01/31/18 @ 01:49 by Giancarlo Burt MD) Renal cell cancer (Acute) Hx of partial nephrectomy (Acute) MITRA (acute kidney injury) (Acute) Intractable nausea and vomiting (Acute) Surgical site infection (Acute) 1. Surgical site infection of left partial nephrectomy for renal ca/MITRA now likely ATN - MRSA on her [facility] labs - c/s to ID and nephrology for infection and MITRA management when she was admitted - Since she has continued purulent drainage and the fluid collection at her nephrectomy site - c/s to general surgery - c/w Doxycycline per ID - Good urine output - May need a renal biopsy however would need to be transferred for that since she is too heavy for our table 2. DM2 - Hold metformin and glipizide - SSI and will adjust as needed 3. Tobacco abuse - advised cessation - Nicotine patch provided 4. Asthma - stable - c/w home inhalers DVT: Heparin Diet: DM Code Visit Inpatient E&M: 51168 Subs Hosp L2
--- NOTE | 2018-02-03 14:18 | CON.PCM_ITS ---
- Consult Date of Consult: 02/03/18 - Reason for Consult I was asked to see Tess for left torso wound by the hospitalist service. 37 year old female s/p Left open partial nephrectomy 12/09/2017 She had complaint of left torso pain postoperatively. She developed a soft tissue abscess with large amount of drainage. In the EPIC notes, there is a note regarding bedside procedure for incision and drainage of this site, but patient states that it was never done. She was admitted to [facility] for nausea/emesis and MITRA. She had been on antibiotics for treatment of the above. I have reviewed the CT scan - no actual abscess noted, but large amount of soft tissue inflammation and incision site. ? PAST?MEDICAL?HISTORY Depression ? DM2 (diabetes mellitus, type 2) (HCC) ? HLD (hyperlipidemia) ? Hx of acute pyelonephritis ? Morbid obesity (HCC) ? Reactive airway disease ? Smoker ? Renal cell cancer of left kidney ? ? PAST SURGICAL HISTORY: SECTION HX ? 2006 tUBAL LIGATION HX ? 2006 Partial left nephrectomy December 09 2017 MEDICATIONS: Metformin HCl [Glucophage] 500 mg PO BIDCM 06/06/14 Albuterol Inhaler [Ventolin Hfa 2 puff INHALATION Q4H PRN PRN 08/07/17 Glipizide [Glucotrol] 10 mg PO BID 08/07/17 Ipratropium/Albuterol Sulfate 3 ml INHALATION Q6H.RT PRN 08/07/17 Ondansetron [Zofran Odt] 4 mg PO Q8H PRN PRN 08/07/17 Exenatide Microspheres [Bydureon 2 mg SC QWEEK 01/30/18 Insulin Glargine,Hum.rec.anlog 20 unit SQ DAILY 01/30/18 Promethazine HCl 25 mg PO Q6H PRN 01/30/18 Sulfamethoxazole/Trimethoprim 1 each PO BID 01/30/18 Allergies: acetaminophen, clindamycin Review of systems: General: has subjective temperature elevation, complains of increased tiredness. Neuro: No history of TIA's, stroke, [employer] PLASTER tumor, impaired sensorium, hemiplegia, paraplegia or quadriplegia. No neurological symptoms or problems. Respiratory: Asthma - uses albuterol inhaler nearly daily, not on controller meds. Denies BECKER Cardiovascular: No history of HTN requiring medication, no history of angina, CHF, CA, cardiac surgery or stents. Denies rest pain, gangrene or revascularization/amputation for PVD. No history of cardiovascular symptoms or problems. GI: has abdominal pain, No history of GI symptoms or problems. No history of esophageal varices, recent ascites, or ETOH greater than 2 drinks per day. : s/p kidney surgery, has pain at operative site, denies recent UTIs HOSPITALITY RECRUITER: LMP - 11/20/17 Endocrine: T2DM - on glargine + oral agents, no known complications. Denies steroid use in the last 3mo. Hematology: No history of bleeding or clotting disorder. No history of hematological symptoms or problems. Oncology: history of renal cancer Derm: has open draining wound Psych: Anxiety, Depression ? PHYSICAL EXAM VITALS: BP 132/86 Pulse 94 Temp (Src) 98.4 (Oral) Ht 5' 5 (1.65m) Wt 333 lb (151.0kg) SpO2 99% BMI 55.41 kg/(m^2). General: Alert and oriented, Morbidly obese Skin: Normal color, no rash, no lesions. Neck: no palpable masses or LNs Cardiovascular: Normal S1 & S2, no rubs, murmurs or gallops. No JVD. Pulse regular. Lungs: Normal breath sounds, no wheezes or crackles. Abdomen: soft and benign and obese, difficult to determine if any masses due to body habitus, has open draining wound of lateral torso Extremities: No deformity, no edema or tenderness, no joint swelling or clubbing. Neurological: Normal cognition and motor skills. ? Impression: postoperative wound from left partial nephrectomy site morbid obesity complicating above Discussion/Plan: I have discussed the above with the patient. I have reviewed the CT scan. Will trial wound vac, I will open the wound wider to allow for placement of this, I have discussed with Darling the wound care nurse. This can be done with local anesthesia with moderate sedation by the bedside. Patient is amenable to this. I have explained the procedure to the patient. I have counseled the patient as to the risks of the procedure, including but not limited to: infection, bleeding, injury to any blood vessels/nerves, scar tissue, persistent wound problems, etc. the patient understands. Will proceed tomorrow. I have answered all questions to the patient?s satisfaction and the patient has no further questions.
--- NOTE | 2018-02-03 14:30 | PCM.PN.REN ---
Patient Problems: Active and Suspected Problems (Last Reviewed 01/31/18 @ 01:49 by Giacnarlo Burt MD) MITRA (acute kidney injury) (Acute) Intractable nausea and vomiting (Acute) Surgical site infection (Acute) Subjective: no further improvement in renal fxn despite increased urine output. Denies uremic symptoms, no nausea, vomiting, diarrhea. Denies shortness of breath. Discussed with pt and sister at bedside re: renal biopsy if renal function does not improve. FENA >1% to suggest ATN but cannot r/o other possible causes. Incision abscess persists. Gen Surgery consulted. - Physical Exam General: Alert, Oriented x3, Cooperative, No apparent distress, - - tearful HEENT: PERRLA, EOMI Neck: Supple Lungs: Clear to auscultation Cardiovascular: Regular rate, No rub noted Abdomen: Bowel Sounds Present, Soft, Non Tender, Non-Distended, Obese Extremities: No edema Musculoskeletal: No Muscle Wasting Neurological: Cranial nerves II-XII grossly intact Psych/Mental Status: Depressed, Alert and oriented to time, place, person, mood and affect Vital Signs Temp Pulse Resp BP Pulse Ox 97.7 F L 87 16 124/103 H 100 02/03/18 11:37 02/03/18 11:37 02/03/18 11:37 02/03/18 11:37 02/03/18 11:37 Oxygen Delivery Method Room Air Weight: 138.3 kg Body Mass Index (BMI) 50.7 Intake and Output for Last 24 Hours 02/01/18 02/02/18 02/03/18 23:59 23:59 23:59 Intake Total 1502 / 1502 1120 / 1120 1400 / 1400 Output Total 900 / 900 500 / 500 1000 / 1000 Balance 602 / 602 620 / 620 400 / 400 Microbiology Past 72 Hours 01/31/18 03:04 Gram Stain - Final Wound - Open/Non-Healing Wound Wound Culture - Preliminary Gram positive yen 01/30/18 22:15 Blood Culture - Preliminary Blood Culture (Wb) - Anticubital Right No growth in 48 hours. Laboratory Tests Past 24 Hrs 02/01/18 02/03/18 14:30 05:40 Eos Smear Total Cells No Eosinophils Seen Sodium 137 Potassium 4.4 Chloride 105 Carbon Dioxide 22.0 BUN 24 H Creatinine 4.18 H Estim Creat Clear Calc 16.42 Est GFR (MDRD) Af Amer 15 L Est GFR (MDRD) Non-Af 13 L BUN/Creatinine Ratio 5.7 L Glucose 150 H Calcium 8.3 L Phosphorus 4.4 Albumin 2.0 L POC Glucose 02/03/18 02/03/18 02/02/18 11:28 06:23 21:57 POC Glucose 253 H 178 H 230 H 02/02/18 16:29 POC Glucose 175 H Medical Necessity - Tobacco Use Smoking Status: Current every day smoker Assessment/Plan All Active Problems (Last Reviewed 01/31/18 @ 01:49 by Giancarlo Burt MD) Renal cell cancer (Acute) Hx of partial nephrectomy (Acute) MITRA (acute kidney injury) (Acute) Intractable nausea and vomiting (Acute) Surgical site infection (Acute) 1. Acute renal failure from intrinsic renal failure from antibiotics, metformin, infection. FENA >1% to suggest ATN but cannot r/o other potential causes for renal failure. Urine eosinophils negative to suggest AIN. Currently no indication for NUCLEAR OPERATIONS SPECIALIST. No uremic symtoms, volume status stable with improved urine output. DW pt may need renal bx if renal fxn does not improve. will need to be transferred for biopsy due to weight limit. Discussed with radiology and hospitalist. 2. Incisional drainage s/p partial open nephrectomy on left for cancer. Continue dressing changes. Remains on doxycycline. 3. DM2 avoid metformin. Primary service managing. 4. HTN add amlodipine, adjust dose as needed. 5. Morbid obesity 6. Renal cell cancer s/p partial left nephrectomy 7. Hx UTI/pyelonephritis
[2018-02-03 15:17] VITALS: BP 147/83; PULSE 94; RESP 16; TEMP 36.7; O2SAT 100
[2018-02-03 16:30] LABS: Bedside Glucose 220 mg/dL (70-110)
[2018-02-03 20:59] VITALS: BP 136/96; PULSE 102; RESP 16; TEMP 36.7; O2SAT 99
[2018-02-03 22:41] LABS: Bedside Glucose 186 mg/dL (70-110)
[2018-02-04 02:47] VITALS: BP 156/95; PULSE 91; RESP 16; TEMP 36.8; O2SAT 98
[2018-02-04] MEDS: Insulin Lispro 100 UNIT/ML INSULN.PEN SQ ×2 (06:39→11:41)
[2018-02-04 06:45] LABS: Bedside Glucose 183 mg/dL (70-110)
[2018-02-04] MEDS: 0.9% NaCl Peripheral Flush Adult/Peds IV (07:22)
[2018-02-04] MEDS: Metoclopramide 10 MG/2 ML Vial IV (07:22)
--- NOTE | 2018-02-04 07:24 | NURSING ---
Nausea medicine given @ this time. Pt reports she is very nervous about the procedure today.
[2018-02-04 07:43] LABS: Absolute Lymphocyte Count 1.58 X10^3/ul (0.83-4.51); Absolute Neutrophil Count 3.7 X10^3/uL (2.0-7.7); Basophil# 0.02 X10^3/uL; Basophil% 0.3 % (0-1); Eosinophil# 0.16 X10^3/uL; Eosinophils% 2.8 % (0-5); Hematocrit 33.2 % (37-47); Hemoglobin 10.6 g/dl (12.0-15.0); Lymphocyte # 1.58 X10^3/ul (4.0); Lymphocyte % 27.3 % (19-41); Mean Corp Hgb Conc 31.9 g/gl (32-36); Mean Corpuscular Volume 81.6 fL (81-99); Monocyte# 0.36 X10^3/uL; Monocyte% 6.2 % (0-10); Neutrophil # 3.67 X10^3/uL (2.7-7.7); Neutrophil % 63.4 % (47-70); Platelet Count 210 K/mm3 (150-450); RBC Distribution Width CV 14.5 % (11.6-14.6); Red Blood Count 4.07 M/mm3 (4.2-5.4); White Blood Count 5.8 K/mm3 (4.4-11.0)
[2018-02-04 07:47] LABS: POSITIVE COUNT NO; POSITIVE DIFFERENTIAL NO; POSITIVE MORPHOLOGY NO
[2018-02-04 08:05] LABS: Albumin, Serum 2.3 g/dL (3.2-5.0); BUN 38 mg/dL (7-18); BUN/Creat Ratio 10.4 RATIO (10-20); Calcium,Total 8.8 mg/dL (8.5-10.1); Chloride 103 mmol/L (98-107); Creatinine, Serum 3.65 mg/dL (0.55-1.02); EST Glomerular Filtration Rate 15 mL/min (>60); Est Glom Filt Rate - Afr Amer 18 mL/min (>60); Glucose 183 mg/dL (74-106); Phosphorus 3.9 mg/dL (2.5-4.9); Potassium 4.4 mmol/L (3.5-5.1); Sodium Level 137 mmol/L (136-145)
--- NOTE | 2018-02-04 08:42 | PCM.PN.REN ---
Patient Problems: Active and Suspected Problems (Last Reviewed 01/31/18 @ 01:49 by Giancarlo Burt MD) MITRA (acute kidney injury) (Acute) Intractable nausea and vomiting (Acute) Surgical site infection (Acute) Subjective: denies nausea, vomiting, diarrhea. Tolerating diet. Urine output good. Renal fxn improving. - Physical Exam General: Alert, Oriented x3, Cooperative, No apparent distress Lungs: Clear to auscultation Cardiovascular: Regular rate Abdomen: Obese Extremities: No edema Vital Signs Temp Pulse Resp BP Pulse Ox 98.2 F 91 16 156/95 H 98 02/04/18 02:47 02/04/18 02:47 02/04/18 02:47 02/04/18 02:47 02/04/18 02:47 Oxygen Delivery Method Room Air Weight: 138.3 kg Body Mass Index (BMI) 50.7 Intake and Output for Last 24 Hours 02/02/18 02/03/18 02/04/18 23:59 23:59 23:59 Intake Total 1120 / 1120 3150 / 3150 1000 / 1000 Output Total 500 / 500 1000 / 1000 Balance 620 / 620 2150 / 2150 1000 / 1000 Microbiology Past 72 Hours 01/31/18 03:04 Gram Stain - Final Wound - Open/Non-Healing Wound Wound Culture - Preliminary Gram positive yen 01/30/18 22:15 Blood Culture - Preliminary Blood Culture (Wb) - Anticubital Right No growth in 48 hours. Laboratory Tests Past 24 Hrs 02/04/18 02/04/18 07:25 07:25 WBC 5.8 RBC 4.07 L Hgb 10.6 L Hct 33.2 L MCV 81.6 MCH 26.0 L MCHC 31.9 L RDW 14.5 RDW Differential 43.0 Plt Count 210 MPV 9.0 Immature Gran % (Auto) 0.000 Neut % (Auto) 63.4 Lymph % (Auto) 27.3 [place] % (Auto) 6.2 Eos % (Auto) 2.8 Baso % (Auto) 0.3 Absolute Neuts (auto) 3.7 Absolute Lymphs (auto) 1.58 Total Counted Not Reportable Sodium 137 Potassium 4.4 Chloride 103 Carbon Dioxide 24.0 BUN 38 H Creatinine 3.65 H Estim Creat Clear Calc 18.80 Est GFR (MDRD) Af Amer 18 L Est GFR (MDRD) Non-Af 15 L BUN/Creatinine Ratio 10.4 Glucose 183 H Calcium 8.8 Phosphorus 3.9 Albumin 2.3 L POC Glucose 02/04/18 02/03/18 02/03/18 06:37 21:05 16:21 POC Glucose 183 H 186 H 220 H 02/03/18 11:28 POC Glucose 253 H Medical Necessity - Tobacco Use Smoking Status: Current every day smoker Assessment/Plan All Active Problems (Last Reviewed 01/31/18 @ 01:49 by Giancarlo Burt MD) Renal cell cancer (Acute) Hx of partial nephrectomy (Acute) MITRA (acute kidney injury) (Acute) Intractable nausea and vomiting (Acute) Surgical site infection (Acute) 1. Acute renal failure from intrinsic renal failure from antibiotics, metformin, infection. FENA >1% to suggest ATN. Creatinine improved to 3.6. Hold on kidney biopsy. 2. Incisional infection with active drainage s/p partial open nephrectomy on left for cancer. Continue dressing changes. Remains on doxycycline. GS consulted for abscess. 3. DM2 avoid metformin. Primary service managing. 4. HTN add amlodipine, adjust dose as needed. 5. Morbid obesity 6. Renal cell cancer s/p partial left nephrectomy 7. Hx UTI/pyelonephritis
[2018-02-04 08:47] VITALS: BP 138/80; PULSE 94; RESP 16; TEMP 36.8; O2SAT 98
--- NOTE | 2018-02-04 10:23 | PCM.PN.HOSP ---
Patient Problems: Active and Suspected Problems (Last Reviewed 01/31/18 @ 01:49 by Giancarlo Burt MD) MITRA (acute kidney injury) (Acute) Intractable nausea and vomiting (Acute) Surgical site infection (Acute) Subjective: Feeling much better today, was able to shower. Eating and drinking well. Vitals/I&O's: Vital Signs Temp Pulse Resp BP Pulse Ox 98.2 F 91 16 156/95 H 98 02/04/18 02:47 02/04/18 02:47 02/04/18 02:47 02/04/18 02:47 02/04/18 02:47 Oxygen Delivery Method Room Air Weight: 304 lb 14.389 oz Body Mass Index (BMI) 50.7 Intake and Output for Last 24 Hours 02/02/18 02/03/18 02/04/18 23:59 23:59 23:59 Intake Total 1120 / 1120 3150 / 3150 1000 / 1000 Output Total 500 / 500 1000 / 1000 Balance 620 / 620 2150 / 2150 1000 / 1000 General: Alert, Oriented x3, Cooperative, No apparent distress HEENT: Atraumatic, EOMI, Normocephalic Oral: Moist Mucosa Neck: Supple, No JVD Lungs: Clear to auscultation, Normal air movement, No rhonchi, No wheeze, No rales Cardiovascular: Regular rate, Regular Rhythm, Normal S1, Normal S2, No murmurs Abdomen: Soft, Non Tender, Non-Distended, No Hepato-splenomegaly, - - active purulent drainage from the left nephrectomy site, improved Psych/Mental Status: Normal Affect, Appropriate Microbiology Past 72 Hours 01/31/18 03:04 Wound - Open/Non-Healing Wound Gram Stain - Final 01/31/18 03:04 Wound - Open/Non-Healing Wound Wound Culture - Preliminary Gram positive yen 01/30/18 22:15 Blood Culture (Wb) - Anticubital Right Blood Culture - Preliminary No growth in 48 hours. Laboratory Results 02/03/18 11:28: POC Glucose 253 H 02/03/18 16:21: POC Glucose 220 H 02/03/18 21:05: POC Glucose 186 H 02/04/18 06:37: POC Glucose 183 H 02/04/18 07:25: Sodium 137, Potassium 4.4, Chloride 103, Carbon Dioxide 24.0, BUN 38 H, Creatinine 3.65 H, Estim Creat Clear Calc 18.80, Est GFR (MDRD) Af Amer 18 L, Est GFR (MDRD) Non-Af 15 L, BUN/Creatinine Ratio 10.4, Glucose 183 H, Calcium 8.8, Phosphorus 3.9, Albumin 2.3 L 02/04/18 07:25: WBC 5.8, RBC 4.07 L, Hgb 10.6 L, Hct 33.2 L, MCV 81.6, MCH 26.0 L, MCHC 31.9 L, RDW 14.5, RDW Differential 43.0, Plt Count 210, MPV 9.0, Immature Gran % (Auto) 0.000, Neut % (Auto) 63.4, Lymph % (Auto) 27.3, [place] % (Auto) 6.2, Eos % (Auto) 2.8, Baso % (Auto) 0.3, Absolute Neuts (auto) 3.7, Absolute Lymphs (auto) 1.58, Total Counted Not Reportable Current Medications Albuterol Sulfate (Ventolin Aerosols) 2.5 mg INHALATION Q4H PRN PRN PRN Reason: SOB &/OR WHEEZING Albuterol/Ipratropium (Duoneb) 3 ml INHALATION Q6H.RT PRN PRN Reason: SOB &/OR WHEEZING Amlodipine Besylate (Norvasc) 5 mg PO DAILY [facility] Last Admin: 02/03/18 10:27 Dose: 5 mg Dextrose (D50w Syringe) 0 gm IV X1 PRN; Protocol PRN Reason: Hypoglycemia Doxycycline Monohydrate (Doxycycline) 100 mg PO BID [facility] Last Admin: 02/03/18 21:07 Dose: 100 mg Glucagon () 1 mg IM .X1 PRN PRN Reason: Hypoglycemia Heparin Sodium (Porcine) (Heparin Na) 5,000 unit SC Q8 [facility] Last Admin: 02/03/18 23:00 Dose: Not Given Insulin Human Lispro (Humalog Kwikpen (Bkc)) 0 unit SQ ACHS [facility]; Protocol Last Admin: 02/04/18 06:39 Dose: 1 u Lidocaine/Epinephrine (Lidocaine 1%/Epi 1:100,000 Mdv) 20 ml INFILT X1 ONE Stop: 02/04/18 10:31 Magnesium Hydroxide (Milk Of Magnesia) 30 ml PO DAILY PRN PRN PRN Reason: Constipation Metoclopramide HCl (Reglan) 10 mg IV Q8H PRN PRN PRN Reason: NAUSEA/VOMITING Last Admin: 02/04/18 07:22 Dose: 10 mg Midazolam HCl (Versed) 2 mg IV X1 ONE Stop: 02/04/18 10:31 Morphine Sulfate () 5 mg IV X1 ONE Stop: 02/04/18 10:31 Nicotine (Nicoderm Cq (Pbkc)) 21 mg TRANSDERM. DAILY [facility] Last Admin: 02/03/18 10:26 Dose: 21 mg Ondansetron HCl (Zofran) 4 mg IV Q6H PRN PRN PRN Reason: NAUSEA/VOMITING Last Admin: 02/02/18 11:31 Dose: 4 mg Prochlorperazine Edisylate (Compazine Iv) 5 - 10 mg IV Q6H PRN PRN PRN Reason: NAUSEA/VOMITING Last Admin: 01/31/18 13:14 Dose: 10 mg Sodium Chloride () 5 - 30 ml IV UD PRN PRN Reason: SALINE FLUSH Last Admin: 02/04/18 07:22 Dose: 10 ml Medical Necessity - Tobacco Use Smoking Status: Current every day smoker Assessment/Plan All Active Problems (Last Reviewed 01/31/18 @ 01:49 by Giancarlo Burt MD) Renal cell cancer (Acute) Hx of partial nephrectomy (Acute) MITRA (acute kidney injury) (Acute) Intractable nausea and vomiting (Acute) Surgical site infection (Acute) 1. Surgical site infection of left partial nephrectomy for renal ca/MITRA now likely ATN - MRSA on her [facility] labs - c/s to ID and nephrology for infection and MITRA management when she was admitted - Since she has continued purulent drainage and the fluid collection at her nephrectomy site, c/s to general surgery - Possible wound vac placement at bedside today - c/w Doxycycline per ID - Good urine output - Cr much improved, MITRA to ATN from the bactrim 2. DM2 - Hold metformin and glipizide - SSI and will adjust as needed 3. Tobacco abuse - advised cessation - Nicotine patch provided 4. Asthma - stable - c/w home inhalers DVT: Heparin Diet: DM Code Visit Inpatient E&M: 03405 Subs Hosp L2
--- NOTE | 2018-02-04 10:28 | PN_ITS ---
Patient Problems: Active and Suspected Problems (Last Reviewed 01/31/18 @ 01:49 by Giancarlo Burt MD) MITRA (acute kidney injury) (Acute) Intractable nausea and vomiting (Acute) Surgical site infection (Acute) Subjective: Feeling much better today, was able to shower. Eating and drinking well. Vitals/I&O's: Vital Signs Temp Pulse Resp BP Pulse Ox 98.2 F 91 16 156/95 H 98 02/04/18 02:47 02/04/18 02:47 02/04/18 02:47 02/04/18 02:47 02/04/18 02:47 Oxygen Delivery Method Room Air Weight: 304 lb 14.389 oz Body Mass Index (BMI) 50.7 Intake and Output for Last 24 Hours 02/02/18 02/03/18 02/04/18 23:59 23:59 23:59 Intake Total 1120 / 1120 3150 / 3150 1000 / 1000 Output Total 500 / 500 1000 / 1000 Balance 620 / 620 2150 / 2150 1000 / 1000 General: Alert, Oriented x3, Cooperative, No apparent distress HEENT: Atraumatic, EOMI, Normocephalic Oral: Moist Mucosa Neck: Supple, No JVD Lungs: Clear to auscultation, Normal air movement, No rhonchi, No wheeze, No ra les Cardiovascular: Regular rate, Regular Rhythm, Normal S1, Normal S2, No murmurs Abdomen: Soft, Non Tender, Non-Distended, No Hepato-splenomegaly, - - active purulent drainage from the left nephrectomy site, improved Psych/Mental Status: Normal Affect, Appropriate Microbiology Past 72 Hours 01/31/18 03:04 Wound - Open/Non-Healing Wound Gram Stain - Final 01/31/18 03:04 Wound - Open/Non-Healing Wound Wound Culture - Preliminary Gram positive yen 01/30/18 22:15 Blood Culture (Wb) - Anticubital Right Blood Culture - Preliminary No growth in 48 hours. Laboratory Results 02/03/18 11:28: POC Glucose 253 H 02/03/18 16:21: POC Glucose 220 H 02/03/18 21:05: POC Glucose 186 H 02/04/18 06:37: POC Glucose 183 H 02/04/18 07:25: Sodium 137, Potassium 4.4, Chloride 103, Carbon Dioxide 24.0, BUN 38 H, Creatinine 3.65 H, Estim Creat Clear Calc 18.80, Est GFR (MDRD) Af Amer 18 L, Est GFR (MDRD) Non-Af 15 L, BUN/Creatinine Ratio 10.4, Glucose 183 H, Calcium 8.8, Phosphorus 3.9, Albumin 2.3 L 02/04/18 07:25: WBC 5.8, RBC 4.07 L, Hgb 10.6 L, Hct 33.2 L, MCV 81.6, MCH 26.0 L, MCHC 31.9 L, RDW 14.5, RDW Differential 43.0, Plt Count 210, MPV 9.0, Immature Gran % (Auto) 0.000, Neut % (Auto) 63.4, Lymph % (Auto) 27.3, [place] % (Auto) 6.2, Eos % (Auto) 2.8, Baso % (Auto) 0.3, Absolute Neuts (auto) 3.7, Absolute Lymphs (auto) 1.58, Total Counted Not Reportable Current Medications Albuterol Sulfate (Ventolin Aerosols) 2.5 mg INHALATION Q4H PRN PRN PRN Reason: SOB &/OR WHEEZING Albuterol/Ipratropium (Duoneb) 3 ml INHALATION Q6H.RT PRN PRN Reason: SOB &/OR WHEEZING Amlodipine Besylate (Norvasc) 5 mg PO DAILY [facility] Last Admin: 02/03/18 10:27 Dose: 5 mg Dextrose (D50w Syringe) 0 gm IV X1 PRN; Protocol PRN Reason: Hypoglycemia Doxycycline Monohydrate (Doxycycline) 100 mg PO BID [facility] Last Admin: 02/03/18 21:07 Dose: 100 mg Glucagon () 1 mg IM .X1 PRN PRN Reason: Hypoglycemia Heparin Sodium (Porcine) (Heparin Na) 5,000 unit SC Q8 [facility] Last Admin: 02/03/18 23:00 Dose: Not Given Insulin Human Lispro (Humalog Kwikpen (Bkc)) 0 unit SQ ACHS [facility]; Protocol Last Admin: 02/04/18 06:39 Dose: 1 u Lidocaine/Epinephrine (Lidocaine 1%/Epi 1:100,000 Mdv) 20 ml INFILT X1 ONE Stop: 02/04/18 10:31 Magnesium Hydroxide (Milk Of Magnesia) 30 ml PO DAILY PRN PRN PRN Reason: Constipation Metoclopramide HCl (Reglan) 10 mg IV Q8H PRN PRN PRN Reason: NAUSEA/VOMITING Last Admin: 02/04/18 07:22 Dose: 10 mg Midazolam HCl (Versed) 2 mg IV X1 ONE Stop: 02/04/18 10:31 Morphine Sulfate () 5 mg IV X1 ONE Stop: 02/04/18 10:31 Nicotine (Nicoderm Cq (Pbkc)) 21 mg TRANSDERM. DAILY [facility] Last Admin: 02/03/18 10:26 Dose: 21 mg Ondansetron HCl (Zofran) 4 mg IV Q6H PRN PRN PRN Reason: NAUSEA/VOMITING Last Admin: 02/02/18 11:31 Dose: 4 mg Prochlorperazine Edisylate (Compazine Iv) 5 - 10 mg IV Q6H PRN PRN PRN Reason: NAUSEA/VOMITING Last Admin: 01/31/18 13:14 Dose: 10 mg Sodium Chloride () 5 - 30 ml IV UD PRN PRN Reason: SALINE FLUSH Last Admin: 02/04/18 07:22 Dose: 10 ml Medical Necessity - Tobacco Use Smoking Status: Current every day smoker Assessment/Plan All Active Problems (Last Reviewed 01/31/18 @ 01:49 by Giancarlo Burt MD) Renal cell cancer (Acute) Hx of partial nephrectomy (Acute) MITRA (acute kidney injury) (Acute) Intractable nausea and vomiting (Acute) Surgical site infection (Acute) 1. Surgical site infection of left partial nephrectomy for renal ca/MITRA now likely ATN - MRSA on her [facility] labs - c/s to ID and nephrology for infection and MITRA management when she was admitted - Since she has continued purulent drainage and the fluid collection at her nephrectomy site, c/s to general surgery - Possible wound vac placement at bedside today - c/w Doxycycline per ID - Good urine output - Cr much improved, MITRA to ATN from the bactrim 2. DM2 - Hold metformin and glipizide - SSI and will adjust as needed 3. Tobacco abuse - advised cessation - Nicotine patch provided 4. Asthma - stable - c/w home inhalers DVT: Heparin Diet: DM Code Visit Inpatient E&M: 56635 Subs Hosp L2
--- NOTE | 2018-02-04 10:30 | NURSING ---
aware per primary RN pt's sister is agree after being asked to follow contact precautions and cussing at her. Aware sister upset that she was placed in precautions and was not told by the physician she needs to be in precautions. Asked [employer] specialist to talk w/ sister and patient. Discussed pt's behavior with primary RN, aware no need to change nurses at this point. Also discussed behavior with assist. biomass plant manager [place]
--- NOTE | 2018-02-04 10:42 | PN.ID_ITS ---
Patient Problems: Active and Suspected Problems (Last Reviewed 01/31/18 @ 01:49 by Giancarlo Burt MD) MITRA (acute kidney injury) (Acute) Intractable nausea and vomiting (Acute) Surgical site infection (Acute) Subjective: Feeling better, wound vac planned, no fever. Drainage slightly improved. - Physical Exam General: Alert, Cooperative, No apparent distress Lungs: Clear to auscultation, Normal air movement Cardiovascular: Regular rate, Regular Rhythm Abdomen: Soft, Non Tender, Non-Distended Skin: Incision - mild wet dressing Vital Signs Temp Pulse Resp BP Pulse Ox 98.3 F 94 16 138/80 H 98 02/04/18 08:47 02/04/18 08:47 02/04/18 08:47 02/04/18 08:47 02/04/18 08:47 Oxygen Delivery Method Room Air Weight: 138.3 kg Body Mass Index (BMI) 50.7 Intake and Output for Last 24 Hours 02/02/18 02/03/18 02/04/18 23:59 23:59 23:59 Intake Total 1120 / 1120 3150 / 3150 1000 / 1000 Output Total 500 / 500 1000 / 1000 Balance 620 / 620 2150 / 2150 1000 / 1000 Microbiology Past 72 Hours 01/31/18 03:04 Gram Stain - Final Wound - Open/Non-Healing Wound Wound Culture - Final Gram positive yen 01/30/18 22:15 Blood Culture - Preliminary Blood Culture (Wb) - Anticubital Right No growth in 48 hours. Laboratory Tests Past 24 Hrs 02/04/18 02/04/18 07:25 07:25 WBC 5.8 RBC 4.07 L Hgb 10.6 L Hct 33.2 L MCV 81.6 MCH 26.0 L MCHC 31.9 L RDW 14.5 RDW Differential 43.0 Plt Count 210 MPV 9.0 Immature Gran % (Auto) 0.000 Neut % (Auto) 63.4 Lymph % (Auto) 27.3 [place] % (Auto) 6.2 Eos % (Auto) 2.8 Baso % (Auto) 0.3 Absolute Neuts (auto) 3.7 Absolute Lymphs (auto) 1.58 Total Counted Not Reportable Sodium 137 Potassium 4.4 Chloride 103 Carbon Dioxide 24.0 BUN 38 H Creatinine 3.65 H Estim Creat Clear Calc 18.80 Est GFR (MDRD) Af Amer 18 L Est GFR (MDRD) Non-Af 15 L BUN/Creatinine Ratio 10.4 Glucose 183 H Calcium 8.8 Phosphorus 3.9 Albumin 2.3 L POC Glucose 02/04/18 02/03/18 02/03/18 06:37 21:05 16:21 POC Glucose 183 H 186 H 220 H 02/03/18 11:28 POC Glucose 253 H Medical Necessity - Tobacco Use Smoking Status: Current every day smoker Route of nutrition/ use of supplements: [] Nutritional Intake: [] IV Site: [] [place] Catheter: [] - Assessment/Plan Antibiotics: [] Assessment/Plan: [] Active and Suspected Problems (Last Reviewed 01/31/18 @ 01:49 by Giancarlo Burt MD) MITRA (acute kidney injury) (Acute) Intractable nausea and vomiting (Acute) MITRA - cr better today MRSA surgical site infection s/p L partial nephrectomy - Cont doxy. CT with ? small collection near L kidney, possible seroma. Cx here with GPR. Surgery planning wound vac placement. Will follow
[2018-02-04] MEDS: amLODIPine 5 MG Tablet PO (10:43)
[2018-02-04] MEDS: Doxycycline 100 MG CAPSULE PO (10:44)
[2018-02-04 11:50] LABS: Bedside Glucose 234 mg/dL (70-110)
[2018-02-04] MEDS: morphine 10 MG/ML Syringe 5 MG IV (12:16)
[2018-02-04] MEDS: Midazolam 2 MG/2 ML Syringe IV (12:17)
--- NOTE | 2018-02-04 12:54 | PCM.OPRPT ---
Report of Operation Date of Procedure: 02/04/18 Pre-Operative Diagnosis: wound infection, incisional dehiscence Post-Operative Diagnosis: same Surgery/Procedure Performed:: incision and drainage of wound left torso Description of Surgical Findings:: Indications: Tess is a morbidly obese 37 y/o who is s/p partial left nephrectomy for renal cancer She presents with wound infection and drainage. Will plan widely opening wound to allow for adequate drainage and placement of wound vacuum. Wound was opened - deep wound present in soft tissue, however, intraabdominal contents intact. Type of Anesthesia:: IV Sedation - Moderate - given 2 mg versed IV and 4 mg morphine IV Anesthesiologist: Barbi Alfonso Specimen's removed: none Estimated Blood Loss (mL): < 5 ml Fluids Replaced: none Description of Procedure: After informed consent was obtained, the patient was lying in the right lateral decubitis position on her hospital bed. This was a bedside procedure. Appropriate time out protocol was followed. Patient given IV conscious sedation. The wound was cleansed with betadyne. The skin and subcutaneous tissues were infiltrated with 1% xylocaine with epinephrine. The patient had multiple small openings along her previous incision line. The bridges were incised to widely open the entire preivous incision site. Blunt dissection was done to widely open the wound in the deep soft tissues. The intraabdominal contents were intact (fascia was intact) The patient had a large amount of soft tissue and this made the wound deep, there was purulent fluid deep to the skin and this was drained. Wound vac was applied by the wound care nurse. Patient tolerated procedure well. - Complications none noted
--- NOTE | 2018-02-04 13:27 | NURSING ---
wound photo: left lower abdomen
--- NOTE | 2018-02-04 14:08 | DCINST_ITS ---
- Discharge Diagnoses Current Active Problems: Current Active and Chronic Problems (Last Reviewed 01/31/18 @ 01:49 by Giancarlo Burt MD) MITRA (acute kidney injury) (Acute) Intractable nausea and vomiting (Acute) Surgical site infection (Acute) You will use the following diet at home:: Calorie/Carbohydrate Controlled (specify 1200, 1400, etc) Your food should be the consistency of: Regular Your liquids should be the consistency of: Regular/Thin Discharge Activity: No Restrictions Call your doctor if your incision/area has: Continuous Slow Oozing, Sudden Increased Bleeding, Increased Pain/ Swelling, Increased Redness, Foul Smelling Discharge Call your doctor if you observe: Fever of 101 or Higher, Shortness of breath Allergies/Adverse Reactions: Allergies acetaminophen [From Tylenol] Adverse Reaction (Severe, Verified 01/30/18 16:02) Hives clindamycin Adverse Reaction (Severe, Verified 01/30/18 16:02) Hives Medications to take at Discharge Metformin HCl [Glucophage] 500 mg PO BIDCM 06/06/14 Albuterol Inhaler [Ventolin Hfa] 2 puff INHALATION Q4H PRN PRN 08/07/17 Glipizide [Glucotrol] 10 mg PO BID 08/07/17 Ipratropium/Albuterol Sulfate [Duoneb] 3 ml INHALATION Q6H.RT PRN 08/07/17 Ondansetron [Zofran Odt] 4 mg PO Q8H PRN PRN 08/07/17 Exenatide Microspheres [Bydureon Pen] 2 mg SC QWEEK 01/30/18 Insulin Glargine,Hum.rec.anlog [Lantus] 20 unit SQ DAILY 01/30/18 Promethazine HCl 25 mg PO Q6H PRN 01/30/18 Amlodipine [Norvasc] 5 mg PO DAILY #30 tablet 02/04/18 Doxycycline 100 mg PO BID #20 capsule 02/04/18 The following prescriptions were given: Amlodipine [Norvasc] 5 mg PO DAILY #30 tablet Doxycycline 100 mg PO BID #20 capsule Primary Care Physician: Care Physician,No Primary [NON-STAFF] - Please follow up with your Primary Care Physician in: in 3-5 days Test Results: Test results from this visit will be discussed in further detail at your follow- up appointment, if applicable. Please Follow Up With: Wound Care
--- NOTE | 2018-02-04 14:08 | PCM.DC.SUM ---
Discharge Date and Diagnosis - Problem List Patient Problems: Active and Suspected Problems (Last Reviewed 01/31/18 @ 01:49 by Giancarlo Burt MD) MITRA (acute kidney injury) (Acute) Intractable nausea and vomiting (Acute) Surgical site infection (Acute) Date of Admission: 01/30/18 Date of Discharge: 02/04/18 - Primary Discharge Diagnosis Active and Suspected Problems (Last Reviewed 01/31/18 @ 01:49 by Giancarlo Burt MD) MITRA (acute kidney injury) (Acute) Intractable nausea and vomiting (Acute) Surgical site infection (Acute) - Secondary Discharge Diagnosis Chronic Problems (Last Reviewed 01/31/18 @ 01:49 by Giancarlo Burt MD) Mass of left kidney (Chronic) Hospital Course and Treatment Imaging Results: CT Abd/Pelvis:IMPRESSION: Postsurgical changes from a partial nephrectomy in the left kidney. Small amount of loculated fluid adjacent to the left kidney which may represent a postoperative seroma. However, abscess cannot be excluded without contrast. Consultations 01/30/18 20:44 Consult: Onc/Wound/industrial relations director Routine Comment: ID Nephrology General Surgery Operations: - - I&D with Wound Vac placement: The wound was cleansed with betadyne. The skin and subcutaneous tissues were infiltrated with 1% xylocaine with epinephrine. The patient had multiple small openings along her previous incision line. The bridges were incised to widely open the entire preivous incision site. Blunt dissection was done to widely open the wound in the deep soft tissues. The intraabdominal contents were intact (fascia was intact) The patient had a large amount of soft tissue and this made the wound deep, there was purulent fluid deep to the skin and this was drained. Wound vac was applied by the wound care nurse. Patient tolerated procedure well. Procedures: None Summary of Care Provided: Per HPI: The patient is a 37 year old F with a significant history of diabetes mellitus TYPE 2; Left kidney cancer status post nephrectomy who presents with 6 days of nausea and vomiting. Patient was at [facility] about a week ago. She spent about 1 day at [facility] and then she was sent to [facility]. Throughout her admission at these hospital she received antibiotics for infection at her left nephrectomy site. Since about the day 1 of receiving these antibiotics she has been having nausea and vomiting. Indeed patient reported that she was discharged from [facility] with nausea and vomiting. Associated with her symptoms is epigastric pain. She also has pain at the left nephrectomy site. Also she has a poor appetite. At her previous hospital stays she was on IV antibiotics. Recently she has also been on Keflex. Her Keflex was later changed to Bactrim. At the time of presentation patient was still on Bactrim but she reported that her home nurse told her not to take Bactrim on the day of her presentation. At emergency department she was found to have severely elevated creatinine above her baseline. Hospital Course: 1. Surgical site infection of left partial nephrectomy for renal ca/MITRA now likely ATN - She presented to the hospital with nausea, vomiting, and dehydration after several days of bactrim therapy. She had a left partial nephrectomy at the [facility] and discharged home with a wound infection that was to be treated initially with keflex and then transitioned to Bactrim when it was found to be MRSA. During her stay here she was switched to doxy because of the acute renal failure sustained from the dehydration and bactrim. Her creatinine peaked at around 4.5 and on the day of discharge was down to 3.56. On the day of discharge, she had her wound opened and cleaned by general surgery at the bedside and a wound vac was placed. She will have home health at discharge and will need to follow-up with the wound care clinic. 2. DM2/HTN - Her blood sugar while in the hospital was controlled well with a DM diet and SSI. She is to discontinue her metformin, glimepiride, and Byetta and only use her long acting insulin and those three are nephrotoxic and should be avoided until her renal function returns to baseline. she should continue the [facility] for her blood pressure which was elevated to 150-160's. Once her creatinine is at baseline she should likely be started on an NOEMI-I or an ARB. 3. Her other diagnoses were evaluated and her home medications were continued where appropriate. Patient Problems: Active and Suspected Problems (Last Reviewed 01/31/18 @ 01:49 by Giancarlo Burt MD) MITRA (acute kidney injury) (Acute) Intractable nausea and vomiting (Acute) Surgical site infection (Acute) - Physical Exam Vital Signs Temp Pulse Resp BP Pulse Ox 98.3 F 94 16 138/80 H 98 02/04/18 08:47 02/04/18 08:47 02/04/18 08:47 10/25/18 08:47 02/04/18 08:47 Oxygen Delivery Method Room Air Weight: 304 lb 14.389 oz Body Mass Index (BMI) 50.7 Intake and Output for Last 24 Hours 02/02/18 02/03/18 02/04/18 23:59 23:59 23:59 Intake Total 1120 / 1120 3150 / 3150 2300 / 2300 Output Total 500 / 500 1000 / 1000 500 / 500 Balance 620 / 620 2150 / 2150 1800 / 1800 Microbiology Past 72 Hours 01/31/18 03:04 Gram Stain - Final Wound - Open/Non-Healing Wound Wound Culture - Final Gram positive yen 01/30/18 22:15 Blood Culture - Preliminary Blood Culture (Wb) - Anticubital Right No growth in 48 hours. Laboratory Tests Past 24 Hrs 02/04/18 02/04/18 07:25 07:25 WBC 5.8 RBC 4.07 L Hgb 10.6 L Hct 33.2 L MCV 81.6 MCH 26.0 L MCHC 31.9 L RDW 14.5 RDW Differential 43.0 Plt Count 210 MPV 9.0 Immature Gran % (Auto) 0.000 Neut % (Auto) 63.4 Lymph % (Auto) 27.3 [place] % (Auto) 6.2 Eos % (Auto) 2.8 Baso % (Auto) 0.3 Absolute Neuts (auto) 3.7 Absolute Lymphs (auto) 1.58 Total Counted Not Reportable Sodium 137 Potassium 4.4 Chloride 103 Carbon Dioxide 24.0 BUN 38 H Creatinine 3.65 H Estim Creat Clear Calc 18.80 Est GFR (MDRD) Af Amer 18 L Est GFR (MDRD) Non-Af 15 L BUN/Creatinine Ratio 10.4 Glucose 183 H Calcium 8.8 Phosphorus 3.9 Albumin 2.3 L POC Glucose 02/04/18 02/04/18 02/03/18 11:39 06:37 21:05 POC Glucose 234 H 183 H 186 H 02/03/18 16:21 POC Glucose 220 H Discharge Diet: Carb Control Diet Discharge Activity: No Restrictions Call your doctor if your incision/area has: Continuous Slow Oozing, Sudden Increased Bleeding, Increased Pain/ Swelling, Increased Redness, Foul Smelling Discharge Call your doctor if you observe: Fever of 101 or Higher, Shortness of breath Home Medications: Medications to take at Discharge Albuterol Inhaler [Ventolin Hfa] 2 puff INHALATION Q4H PRN PRN 08/07/17 Ipratropium/Albuterol Sulfate [Duoneb] 3 ml INHALATION Q6H.RT PRN 08/07/17 Ondansetron [Zofran Odt] 4 mg PO Q8H PRN PRN 08/07/17 Insulin Glargine,Hum.rec.anlog [Lantus] 20 unit SQ DAILY 01/30/18 Promethazine HCl 25 mg PO Q6H PRN 01/30/18 Amlodipine [Norvasc] 5 mg PO DAILY #30 tablet 02/04/18 Doxycycline 100 mg PO BID #20 capsule 02/04/18 Following Prescrptions Were Given to Patient: Amlodipine [Norvasc] 5 mg PO DAILY #30 tablet Doxycycline 100 mg PO BID #20 capsule Primary Care Physician: Care Physician,No Primary [NON-STAFF] - Please follow up with your Primary Care Physician in: in 3-5 days Please Follow Up With: Wound Care Disposition: Home with Home Health Minutes spent on discharge:: 35 Patient Condition:: Good Medical Necessity - Tobacco Use Smoking Status: Current every day smoker Meaningful Use Info Meaningful Use Diagnoses (Choose all that apply): None applicable Code Visit Inpatient E&M: 41819 Disch Hosp
[2018-02-04] MEDS: Heparin Injection (Vial) 5,000 UNIT/ML VIAL 5000 UNIT SC (14:25)
--- NOTE | 2018-02-04 14:25 | DS.PCM_ITS ---
Discharge Date and Diagnosis - Problem List Patient Problems: Active and Suspected Problems (Last Reviewed 01/31/18 @ 01:49 by Giancarlo Burt MD) MITRA (acute kidney injury) (Acute) Intractable nausea and vomiting (Acute) Surgical site infection (Acute) Date of Admission: 01/30/18 Date of Discharge: 02/04/18 - Primary Discharge Diagnosis Active and Suspected Problems (Last Reviewed 01/31/18 @ 01:49 by Giancarlo Burt MD) MITRA (acute kidney injury) (Acute) Intractable nausea and vomiting (Acute) Surgical site infection (Acute) - Secondary Discharge Diagnosis Chronic Problems (Last Reviewed 01/31/18 @ 01:49 by Giancarlo Burt MD) Mass of left kidney (Chronic) Hospital Course and Treatment Imaging Results: CT Abd/Pelvis:IMPRESSION: Postsurgical changes from a partial nephrectomy in the left kidney. Small amount of loculated fluid adjacent to the left kidney which may represent a postoperative seroma. However, abscess cannot be excluded without contrast. Consultations 01/30/18 20:44 Consult: Onc/Wound/strings teacher Routine Comment: ID Nephrology General Surgery Operations: - - I&D with Wound Vac placement: The wound was cleansed with betadyne. The skin and subcutaneous tissues were infiltrated with 1% xylocaine with epinephrine. The patient had multiple small openings along her previous incision line. The bridges were incised to widely open the entire preivous incision site. Blunt dissection was done to widely open the wound in the deep soft tissues. The intraabdominal contents were intact (fascia was intact) The patient had a large amount of soft tissue and this made the wound deep, there was purulent fluid deep to the skin and this was drained. Wound vac was applied by the wound care nurse. Patient tolerated procedure well. Procedures: None Summary of Care Provided: Per HPI: The patient is a 37 year old F with a significant history of diabetes mellitus TYPE 2; Left kidney cancer status post nephrectomy who presents with 6 days of nausea and vomiting. Patient was at [facility] about a week ago. She spent about 1 day at [facility] and then she was sent to [facility]. Throughout her admission at these hospital she received antibiotics for infection at her left nephrectomy site. Since about the day 1 of receiving these antibiotics she has been having nausea and vomiting. Indeed patient reported that she was discharged from [facility] with nausea and vomiting. Associated with her symptoms is epigastric pain. She also has pain at the left nephrectomy site. Also she has a poor appetite. At her previous hospital stays she was on IV antibiotics. Recently she has also been on Keflex. Her Keflex was later changed to Bactrim. At the time of presentation patient was still on Bactrim but she reported that her home nurse told her not to take Bactrim on the day of her presentation. At emergency department she was found to have severely elevated creatinine above her baseline. Hospital Course: 1. Surgical site infection of left partial nephrectomy for renal ca/MITRA now likely ATN - She presented to the hospital with nausea, vomiting, and dehydration after several days of bactrim therapy. She had a left partial nephrectomy at the [facility] and discharged home with a wound infection that was to be treated initially with keflex and then transitioned to Bactrim when it was found to be MRSA. During her stay here she was switched to doxy because of the acute renal failure sustained from the dehydration and bactrim. Her creatinine peaked at around 4.5 and on the day of discharge was down to 3.56. On the day of discharge, she had her wound opened and cleaned by general surgery at the bedside and a wound vac was placed. She will have home health at discharge and will need to follow-up with the wound care clinic. 2. DM2/HTN - Her blood sugar while in the hospital was controlled well with a DM diet and SSI. She is to discontinue her metformin, glimepiride, and Byetta and only use her long acting insulin and those three are nephrotoxic and should be avoided until her renal function returns to baseline. she should continue the [facility] for her blood pressure which was elevated to 150-160's. Once her creatinine is at baseline she should likely be started on an NOEMI-I or an ARB. 3. Her other diagnoses were evaluated and her home medications were continued where appropriate. Patient Problems: Active and Suspected Problems (Last Reviewed 01/31/18 @ 01:49 by Giancarlo greene MD) MITRA (acute kidney injury) (Acute) Intractable nausea and vomiting (Acute) Surgical site infection (Acute) - Physical Exam Vital Signs Temp Pulse Resp BP Pulse Ox 98.3 F 94 16 138/80 H 98 02/04/18 08:47 02/04/18 08:47 02/04/18 08:47 10/25/18 08:47 02/04/18 08:47 Oxygen Delivery Method Room Air Weight: 304 lb 14.389 oz Body Mass Index (BMI) 50.7 Intake and Output for Last 24 Hours 02/02/18 02/03/18 02/04/18 23:59 23:59 23:59 Intake Total 1120 / 1120 3150 / 3150 2300 / 2300 Output Total 500 / 500 1000 / 1000 500 / 500 Balance 620 / 620 2150 / 2150 1800 / 1800 Microbiology Past 72 Hours 01/31/18 03:04 Gram Stain - Final Wound - Open/Non-Healing Wound Wound Culture - Final Gram positive yen 01/30/18 22:15 Blood Culture - Preliminary Blood Culture (Wb) - Anticubital Right No growth in 48 hours. Laboratory Tests Past 24 Hrs 02/04/18 02/04/18 07:25 07:25 WBC 5.8 RBC 4.07 L Hgb 10.6 L Hct 33.2 L MCV 81.6 MCH 26.0 L MCHC 31.9 L RDW 14.5 RDW Differential 43.0 Plt Count 210 MPV 9.0 Immature Gran % (Auto) 0.000 Neut % (Auto) 63.4 Lymph % (Auto) 27.3 [place] % (Auto) 6.2 Eos % (Auto) 2.8 Baso % (Auto) 0.3 Absolute Neuts (auto) 3.7 Absolute Lymphs (auto) 1.58 Total Counted Not Reportable Sodium 137 Potassium 4.4 Chloride 103 Carbon Dioxide 24.0 BUN 38 H Creatinine 3.65 H Estim Creat Clear Calc 18.80 Est GFR (MDRD) Af Amer 18 L Est GFR (MDRD) Non-Af 15 L BUN/Creatinine Ratio 10.4 Glucose 183 H Calcium 8.8 Phosphorus 3.9 Albumin 2.3 L POC Glucose 02/04/18 02/04/18 02/03/18 11:39 06:37 21:05 POC Glucose 234 H 183 H 186 H 02/03/18 16:21 POC Glucose 220 H Discharge Diet: Carb Control Diet Discharge Activity: No Restrictions Call your doctor if your incision/area has: Continuous Slow Oozing, Sudden Increased Bleeding, Increased Pain/ Swelling, Increased Redness, Foul Smelling D ischarge Call your doctor if you observe: Fever of 101 or Higher, Shortness of breath Home Medications: Medications to take at Discharge Albuterol Inhaler [Ventolin Hfa] 2 puff INHALATION Q4H PRN PRN 08/07/17 Ipratropium/Albuterol Sulfate [Duoneb] 3 ml INHALATION Q6H.RT PRN 08/07/17 Ondansetron [Zofran Odt] 4 mg PO Q8H PRN PRN 08/07/17 Insulin Glargine,Hum.rec.anlog [Lantus] 20 unit SQ DAILY 01/30/18 Promethazine HCl 25 mg PO Q6H PRN 01/30/18 Amlodipine [Norvasc] 5 mg PO DAILY #30 tablet 02/04/18 Doxycycline 100 mg PO BID #20 capsule 02/04/18 Following Prescrptions Were Given to Patient: Amlodipine [Norvasc] 5 mg PO DAILY #30 tablet Doxycycline 100 mg PO BID #20 capsule Primary Care Physician: Care Physician,No Primary [NON-STAFF] - Please follow up with your Primary Care Physician in: in 3-5 days Please Follow Up With: Wound Care Disposition: Home with Home Health Minutes spent on discharge:: 35 Patient Condition:: Good Medical Necessity - Tobacco Use Smoking Status: Current every day smoker Meaningful Use Info Meaningful Use Diagnoses (Choose all that apply): None applicable Code Visit Inpatient E&M: 40358 Disch Hosp
[2018-02-04 14:32] VITALS: BP 136/94; PULSE 100; RESP 18; TEMP 36.7; O2SAT 96
--- NOTE | 2018-02-04 17:05 | NURSING ---
Addendum entered by Claire Garibay 02/04/18 17:10: confirm. number for cherry picker operator [phone] Original Note: aware wvac for home approved. pt sign proof of delivery and faxed to [facility]. [facility] called for cherry picker operator of hospital vac #[id number]
--- NOTE | 2018-02-05 16:57 | CASEMGMT ---
BHARGAVI CM Discharge Follow-up Phone Call: AISHA: [place]: 3 Call Date: 02/05/18 Discharge Date: 02/04/18 Time of Call: 1658 Duration: 1 min Admitting Diagnosis: MITRA Dehydration RN FREDY attempted to complete follow-up phone call after recent hospitalization. No answer, voice message left with return contact information.
== END 2018-02-04 17:08 | disposition home health service (06) | DRG 711 ==
LOC: ED 16:29 → MS3 19:48
PROVIDERS: Internal Medicine Infectious Disease; Internal Medicine Nephrology; Admitting Provider Hospitalist; Emergency Provider Emergency Medicine; Visit Provider Family Medicine
DX: T81.42XA Infection following a procedure, deep incisional surgical site, initial encounter (principal); E11.9 Type 2 diabetes mellitus without complications; E86.0 Dehydration; Z85.528 Personal history of other malignant neoplasm of kidney; Z90.5 Acquired absence of kidney; F17.210 Nicotine dependence, cigarettes, uncomplicated; Z79.4 Long term (current) use of insulin; N17.0 Acute kidney failure with tubular necrosis; E66.01 Morbid (severe) obesity due to excess calories; Z68.43 Body mass index [BMI] 50.0-59.9, adult; J45.909 Unspecified asthma, uncomplicated
CPT/HCPCS: 36415; 74150; 80048; 80053; 80069; 81001; 82570; 82962; 83036; 83690; 84156; 84300; 85025; 87040; 87070; 87205; 97802; 99282; 99406; J0878; J7030; J7040; A4216; J0744; J2405; J3490

== ENCOUNTER 2018-02-08 13:27 | Emergency (ER) | payer MEDICAID, SELFPAY ==
[2018-02-08 13:28] VITALS: BP 146/99; PULSE 108; RESP 18; TEMP 35.6; O2SAT 96; BMI 49.9
[2018-02-08 14:24] LABS: Absolute Lymphocyte Count 1.66 X10^3/ul (0.83-4.51); Basophil# 0.02 X10^3/uL; Basophil% 0.3 % (0-1); Eosinophils% 1.6 % (0-5); Hematocrit 36.5 % (37-47); Hemoglobin 11.8 g/dl (12.0-15.0); Lymphocyte # 1.66 X10^3/ul (4.0); Lymphocyte % 26.8 % (19-41); Mean Corp Hgb Conc 32.3 g/gl (32-36); Mean Corpuscular Hgb 26.4 pg (27.0-32.0); Mean Corpuscular Volume 81.7 fL (81-99); Mean Platelet Vol. 9.2 fl (6.2-12.0); Monocyte% 6.5 % (0-10); Neutrophil # 4.02 X10^3/uL (2.7-7.7); Neutrophil % 64.8 % (47-70); POSITIVE COUNT NO; POSITIVE DIFFERENTIAL NO; POSITIVE MORPHOLOGY NO; Platelet Count 223 K/mm3 (150-450); RBC Distribution Width CV 14.5 % (11.6-14.6); RBC Distribution Width SD 41.8 fl (35.1-43.9); Red Blood Count 4.47 M/mm3 (4.2-5.4); White Blood Count 6.2 K/mm3 (4.4-11.0)
[2018-02-08] MEDS: 0.9% Normal Saline 1,000 ML 1000 ML IV (14:25)
[2018-02-08] MEDS: Ondansetron 4 MG/2 ML Vial IV (14:26)
[2018-02-08 14:38] LABS: ALB/GLOB Ratio 0.6 RATIO (0.9-2.4); AST(SGOT) 11 U/L (15-37); Alanine Aminotransfer ALT/SGPT 17 U/L (13-56); Albumin, Serum 2.7 g/dL (3.2-5.0); Alkaline Phosphatase 111 U/L (45-117); Anion Gap 7 (5-15); BUN 40 mg/dL (7-18); BUN/Creat Ratio 16.3 RATIO (10-20); Calcium,Total 9.1 mg/dL (8.5-10.1); Chloride 103 mmol/L (98-107); Creatinine, Serum 2.46 mg/dL (0.55-1.02); EST Glomerular Filtration Rate 23 mL/min (>60); Est Glom Filt Rate - Afr Amer 28 mL/min (>60); Globulin 4.6 g/dL (2.2-4.2); Glucose 162 mg/dL (74-106); Lipase 40 U/L (73-393); Potassium 4.4 mmol/L (3.5-5.1); Protein, Total 7.3 g/dL (6.4-8.2); Sodium Level 138 mmol/L (136-145)
--- NOTE | 2018-02-08 16:15 | ED.VISSUMM ---
- ER Visit Summary Date of Service: 02/08/18 Chief Complaint: Nausea and vomiting History of Present Illness: The patient is a 37 F presenting with nausea and vomiting for the past 5-6 days. She had a partial nephrectomy on the left performed at [facility] on December 09. She was subsequently admitted here with a postoperative complication and had a wound VAC placed. She has been doing well from that standpoint and no longer has pain or symptoms related to the postoperative issue. She has however had continued nausea and vomiting with difficulty keeping fluids and food down since she was last hospitalized. No increased pain. No fever. No urinary symptoms. She has an appointment with her cathode builder, Dr. Ricks, tomorrow. Physical Examination: Vitals are within normal limits. She is not in distress. Clinically, she does not appear significantly dehydrated. Abdomen is soft and nontender. Wound VAC site is clean and dry. Surrounding skin looks normal. She has no abdominal tenderness Test Results: Blood cell count is normal. Creatinine has improved markedly and is 2.46. Emergency Department Course and Treatment: He was given IV fluids and Zofran. On reexamination, she is feeling much better. Her nausea has resolved. She is eating a [employer] cheeseburger and [place] fries without difficulty. She no longer feels nauseated. She feels well and would prefer to go home. She states that she was mainly concerned that her creatinine is worse. She has an appointment with Dr. Ricks tomorrow. I discussed the case with Dr. Ricks who is comfortable at discharge home and keeping her appointment tomorrow. She will be prescribed dissolvable Zofran. She will return if worse. Treatment Plan: Zofran ODT as needed, see Dr. Ricks tomorrow. Disposition: Home stable Impression: Initial encounter mild dehydration, initial encounter nausea and vomiting-resolved, recent partial nephrectomy at outside hospital This note was generated with [employer] dictation software. It may contain incorrect words, spelling, and punctuation that were not noted in review of the chart prior to signing ED Disposition - Plan for ED Patient: Chief Complaint: Nausea/Vomiting Diagnosis: Hx of partial nephrectomy Instructions: ED Nausea Vomiting Prescriptions: Ondansetron [Zofran Odt] 4 mg PO TID PRN #20 tab.rapdis PRN Reason: Nausea Referrals: Briana Ricks DO [STAFF PHYSICIAN] - 1 Day
--- NOTE | 2018-02-08 16:19 | ED.DCSUM_ITS ---
- ER Visit Summary Date of Service: 02/08/18 Chief Complaint: Nausea and vomiting History of Present Illness: The patient is a 37 F presenting with nausea and vomiting for the past 5-6 days. She had a partial nephrectomy on the left performed at [facility] on December 09. She was subsequently admitted here with a postoperative complication and had a wound VAC placed. She has been doing well from that standpoint and no longer has pain or symptoms related to the postoperative issue. She has however had continued nausea and vomiting with difficulty keeping fluids and food down since she was last hospitalized. No increased pain. No fever. No urinary symptoms. She has an appointment with her aircraft instrument mechanic, Dr. Ricks, tomorrow. Physical Examination: Vitals are within normal limits. She is not in distress. Clinically, she does not appear significantly dehydrated. Abdomen is soft and nontender. Wound VAC site is clean and dry. Surrounding skin looks normal. She has no abdominal tenderness Test Results: Blood cell count is normal. Creatinine has improved markedly and is 2.46. Emergency Department Course and Treatment: He was given IV fluids and Zofran. On reexamination, she is feeling much better. Her nausea has resolved. She is eating a [employer] cheeseburger and [place] fries without difficulty. She no longer feels nauseated. She feels well and would prefer to go home. She states that she was mainly concerned that her creatinine is worse. She has an appointment with Dr. Ricks tomorrow. I discussed the case with Dr. Ricks who is comfortable at discharge home and keeping her appointment tomorrow. She will be prescribed dissolvable Zofran. She will return if worse. Treatment Plan: Zofran ODT as needed, see Dr. Ricks tomorrow. Disposition: Home stable Impression: Initial encounter mild dehydration, initial encounter nausea and vomiting-resolved, recent partial nephrectomy at outside hospital This note was generated with [employer] dictation software. It may contain incorrect words, spelling, and punctuation that were not noted in review of the chart prior to signing ED Disposition - Plan for ED Patient: Chief Complaint: Nausea/Vomiting Diagnosis: Hx of partial nephrectomy Instructions: ED Nausea Vomiting Prescriptions: Ondansetron [Zofran Odt] 4 mg PO TID PRN #20 tab.rapdis PRN Reason: Nausea Referrals: Briana Ricks DO [STAFF PHYSICIAN] - 1 Day
[2018-02-08 16:33] VITALS: BP 161/98; PULSE 84; RESP 18; O2SAT 99
== END 2018-02-08 16:35 | disposition home or self-care (01) ==
PROVIDERS: Emergency Provider Emergency Medicine
DX: R11.2 Nausea with vomiting, unspecified (principal); E86.0 Dehydration; E11.9 Type 2 diabetes mellitus without complications; I10 Essential (primary) hypertension; Z79.4 Long term (current) use of insulin; Z79.899 Other long term (current) drug therapy; Z90.5 Acquired absence of kidney; Z85.528 Personal history of other malignant neoplasm of kidney
CPT/HCPCS: 80053; 83605; 83690; 85025; 96361; 96374; 99283; J7030; A4216; J2405

== ENCOUNTER 2018-03-11 10:15 | Outpatient (RCR) | payer MEDICAID, SELFPAY ==
[2018-02-11 11:59] VITALS: BP 135/96; PULSE 112; RESP 18; TEMP 36.4; BMI 49.4
--- NOTE | 2018-02-11 13:17 | PCM.WC.HP ---
(1) Nonhealing surgical wound Status: Acute Code(s): T81.89XA - Other complications of procedures, not elsewhere classified, initial encounter (2) Hx of partial nephrectomy Status: Acute Code(s): Z90.5 - Acquired absence of kidney (3) Renal cell cancer Status: Acute Code(s): C64.9 - Malignant neoplasm of unspecified kidney, except renal pelvis History of Present Illness Date of Service: 02/11/18 Chief Complaint: Ulcer to right lower abdomen History of Wound: Ms. Rosenberg is a 37-year-old who presents to the wound center for management of a postsurgical wound. She had partial nephrectomy on 09 December at the [facility] however, appeared to have developed complications with surgical wound dehiscence for which she was subsequently sent at [facility] where she had surgical debridement in January. She had a wound VAC placed after surgery on the 04 of February and now presents here for management of her wound and Vac. She denies fever, chills or change in her bowel habits. Past Medical History Past Medical History: Chronic Problems (Last Reviewed 01/31/18 @ 01:49 by Giancarlo Burt MD) Mass of left kidney (Chronic) Surgical History: - - Csection complicated by wound infection, tubal ligation, left partial nephrectomy for RCC Allergies/Adverse Reactions: Allergies acetaminophen [From Tylenol] Adverse Reaction (Severe, Verified 02/08/18 13:28) Hives clindamycin Adverse Reaction (Severe, Verified 02/08/18 13:28) Hives Home Medications: Ambulatory Orders Medication Instructions Recorded RX: Albuterol Inhaler [Ventolin 2 puff INHALATION Q4H PRN PRN 08/07/17 Hfa] RX: Ipratropium/Albuterol Sulfate 3 ml INHALATION Q6H.RT PRN 08/07/17 [Duoneb] RX: Ondansetron [Zofran Odt] 4 mg PO Q8H PRN PRN 08/07/17 RX: Insulin Glargine,Hum.rec.anlog 20 unit SQ DAILY 01/30/18 [Lantus] RX: Promethazine HCl 25 mg PO Q6H PRN 01/30/18 RX: Amlodipine [Norvasc] 5 mg PO DAILY #30 tablet 02/04/18 RX: Doxycycline 100 mg PO BID #20 capsule 02/04/18 Ondansetron [Zofran Odt] 4 mg PO TID PRN #20 tab.rapdis 02/08/18 - Family History Maternal Family History: Family History (Last Reviewed 01/31/18 @ 01:49 by Giancarlo Burt MD) Father Diabetes Uncle Cancer Grandmother Diabetes Diabetes Smoking Status: Current every day smoker Review of Systems Constitutional: Reports: Anorexia. Denies: Chills, Fever Eyes: Denies: Blurred vision, Pain, Redness HEENT: Denies: Difficulty Hearing Cardiovascular: Denies: Chest Pain, Chest Tightness Respiratory: Denies: Cough, Hemoptysis Gastrointestinal: Reports: Abdominal Pain, Vomiting. Denies: Hematemesis Genitourinary: Denies: Hematuria Skin: Denies: Jaundice - Physical Exam Vital Signs Temp Pulse Resp BP 97.5 F L 112 H 18 135/96 H 02/11/18 11:59 02/11/18 11:59 02/11/18 11:59 02/11/18 11:59 General: Alert, Oriented x3, Cooperative HEENT: Atraumatic, Normocephalic Oral: Moist Mucosa Neck: Supple Lungs: Normal air movement Cardiovascular: Regular rate, Regular Rhythm Abdomen: Soft, Obese, Tender Extremities: No cyanosis Skin: Ulcer/ Wound Wound Measurements and Assessment WC - Nurse 1 - General Ulcer Measurement Start: 02/11/18 11:47 Freq: Status: Active Protocol: Activity Type Activity Date Activity User E-Sign Co-Sign Detail Recorded Client Recorded Date Recorded By Document 02/11/18 11:59 [id number] 02/11/18 12:12 02/11/18 11:59 Wound Center Nurse 1 [Ulcer Assessment] 1. R abd -Combined with other wound No -Current Size (cm) - Length 1.5 -Current Size (cm) - Width 11.7 -Current Size (cm) - Depth 1.3 -Total Square Cm 17.55 -Date of Last Picture (Recall this 02/11/18 field) -Photo Taken Yes -Epithelialization None Present -Tunneling No -Undermining/Tunneling Yes -Undermining/Tunneling Starts (O' 12 clock) -Undermining/Tunneling Ends (O'clock) 2 -Maximum Distance (cm) 7.1 -Circular Undermining No -Exudate Amt Medium (34-66%) -Exudate Type Serosanguineous -Wound Margin Distinct, Outline Attached -Granulation Amt Large (67-100%) -Granulation Quality Red -Slough/Fibrin Yes -Necrosis Amt None Present (0 %) -Necrotic Tissue Type Adherent Slough -Structure Exposed None/Limited to Skin Breakdown -Texture (Carrie-wound Skin Appearance) Assessed Scarring -Moisture (Carrie-wound Skin Appearance No Abnormality ) Assessed -Temperature (Carrie-wound Skin No Abnormality Appearance) (Pt Warm) -Tenderness on Palpation (Carrie-wound Yes Skin Appearance) -Ulcer Cleansing Wound Cleanser -Foul Odor after Cleansing No -Anesthetic Used 4% Lidocaine Solution [Edema Assessment] -Lower Limb Edema Present NA - Nurse 2 - General Ulcer CM Notes Start: 02/11/18 11:47 Freq: Status: Active Protocol: Activity Type Activity Date Activity User E-Sign Co-Sign Detail Recorded Client Recorded Date Recorded By Document 02/11/18 12:28 MW [id number] 02/11/18 12:34 MW 02/11/18 12:28 Wound Center Nurse 2 [Procedure/Treatment] 1. R abd -Time 12:28 -Correct Patient Yes -Correct Side, Site, Position Yes -Correct Procedure Yes -Procedure Performed Yes -Type of Procedure Debridement -Clinical Debridement Subcutaneous -Post Debridement Size (cm) - Length 1.0 -Post Debridement Size (cm) - Width 13.3 -Post Debridement Size (cm) - Depth 1.0 -Total Square Cm 13.30 -Wound/Ulcer Outcome Not Healed -Ulcer Cleansing Rinsed/ Irrigated with Saline -Foul Odor after Cleansing No -Bioengineered Tissue No -Bleeding Controlled with Pressure -Other TUNNEL @ 2 - 7. 0CM -Treatment Response Procedure Tolerated Well [See Physician Procedure note for Specifics] Pain Scale: 0-10 Numeric [Pain] -Is Patient Pain Free? Yes Musculoskeletal: No Muscle Wasting Neurological: Cranial nerves II-XII grossly intact Psych/Mental Status: Normal Affect Debridement Note Post-Debridement Measurements/Treatment - Nurse 2 - General Ulcer CM Notes Start: 02/11/18 11:47 Freq: Status: Active Protocol: Activity Type Activity Date Activity User E-Sign Co-Sign Detail Recorded Client Recorded Date Recorded By Document 02/11/18 12:28 MW [id number] 02/11/18 12:34 MW 02/11/18 12:28 Wound Center Nurse 2 1. R abd -Time 12:28 -Correct Patient Yes -Correct Side, Site, Position Yes -Correct Procedure Yes -Procedure Performed Yes -Type of Procedure Debridement -Clinical Debridement Subcutaneous -Post Debridement Size (cm) - Length 1.0 -Post Debridement Size (cm) - Width 13.3 -Post Debridement Size (cm) - Depth 1.0 -Total Square Cm 13.30 -Wound/Ulcer Outcome Not Healed -Ulcer Cleansing Rinsed/ Irrigated with Saline -Foul Odor after Cleansing No -Bioengineered Tissue No -Bleeding Controlled with Pressure -Other TUNNEL @ 2 - 7. 0CM -Treatment Response Procedure Tolerated Well Pain Scale: 0-10 Numeric Is Patient Pain Free? Yes Wound debrided: Left-sided abdominal wound Wound Grade/Stage: Stage 3 Type of Debridement: Excisional debridement Anesthesia Used: 4% Lidocaine Solution Depth: Down to and including healthy tissue Percentage of wound debrided: 100 Instrument Used: 7mm curette Tissue Removed: Slough and devitalized tissue Severity: Fat Layer Exposed Amount of bleeding with debridement: Mild Bleeding Controlled with: Pressure Patient tolerated procedure well Assessment/Plan Assessment: Nonhealing postsurgical abdominal wound. Wound VAC management. Status post partial nephrectomy secondary to renal cell carcinoma. Plan: Debridement done as documented above. Procedure was well-tolerated. No concerning signs of infection at this time. Increase wound VAC to 150 mmHg. Change every 48 hours. Increased protein intake/supplements recommended. All her questions were answered and she was advised to call with any questions or concerns. Follow-up in 1 week. This note was generated with [employer] dictation software. It may contain incorrect words, spelling, and punctuation that were not noted in checking the note before signing.
--- NOTE | 2018-02-11 13:21 | HP.PCM_ITS ---
(1) Nonhealing surgical wound Status: Acute Code(s): T81.89XA - Other complications of procedures, not elsewhere classified, initial encounter (2) Hx of partial nephrectomy Status: Acute Code(s): Z90.5 - Acquired absence of kidney (3) Renal cell cancer Status: Acute Code(s): C64.9 - Malignant neoplasm of unspecified kidney, except renal pelvis History of Present Illness Date of Service: 02/11/18 Chief Complaint: Ulcer to right lower abdomen History of Wound: Ms. Rosenberg is a 37-year-old who presents to the wound center for management of a postsurgical wound. She had partial nephrectomy on 09 December at the [facility] however, appeared to have developed complications with surgical wound dehiscence for which she was subsequently sent at [facility] where she had surgical debridement in January. She had a wound VAC placed after surgery on the 04 of February and now presents here for management of her wound and Vac. She denies fever, chills or change in her bowel habits. Past Medical History Past Medical History: Chronic Problems (Last Reviewed 01/31/18 @ 01:49 by Giancarlo Burt MD) Mass of left kidney (Chronic) Surgical History: - - Csection complicated by wound infection, tubal ligation, left partial nephrectomy for RCC Allergies/Adverse Reactions: Allergies acetaminophen [From Tylenol] Adverse Reaction (Severe, Verified 02/08/18 13:28) Hives clindamycin Adverse Reaction (Severe, Verified 02/08/18 13:28) Hives Home Medications: Ambulatory Orders Medication Instructions Recorded RX: Albuterol Inhaler [Ventolin 2 puff INHALATION Q4H PRN PRN 08/07/17 Hfa] RX: Ipratropium/Albuterol Sulfate 3 ml INHALATION Q6H.RT PRN 08/07/17 [Duoneb] RX: Ondansetron [Zofran Odt] 4 mg PO Q8H PRN PRN 08/07/17 RX: Insulin Glargine,Hum.rec.anlog 20 unit SQ DAILY 01/30/18 [Lantus] RX: Promethazine HCl 25 mg PO Q6H PRN 01/30/18 RX: Amlodipine [Norvasc] 5 mg PO DAILY #30 tablet 02/04/18 RX: Doxycycline 100 mg PO BID #20 capsule 02/04/18 Ondansetron [Zofran Odt] 4 mg PO TID PRN #20 tab.rapdis 02/08/18 - Family History Maternal Family History: Family History (Last Reviewed 01/31/18 @ 01:49 by Giancarlo Burt MD) Father Diabetes Uncle Cancer Grandmother Diabetes Diabetes Smoking Status: Current every day smoker Review of Systems Constitutional: Reports: Anorexia. Denies: Chills, Fever Eyes: Denies: Blurred vision, Pain, Redness HEENT: Denies: Difficulty Hearing Cardiovascular: Denies: Chest Pain, Chest Tightness Respiratory: Denies: Cough, Hemoptysis Gastrointestinal: Reports: Abdominal Pain, Vomiting. Denies: Hematemesis Genitourinary: Denies: Hematuria Skin: Denies: Jaundice - Physical Exam Vital Signs Temp Pulse Resp BP 97.5 F L 112 H 18 135/96 H 02/11/18 11:59 02/11/18 11:59 02/11/18 11:59 02/11/18 11:59 General: Alert, Oriented x3, Cooperative HEENT: Atraumatic, Normocephalic Oral: Moist Mucosa Neck: Supple Lungs: Normal air movement Cardiovascular: Regular rate, Regular Rhythm Abdomen: Soft, Obese, Tender Extremities: No cyanosis Skin: Ulcer/ Wound Wound Measurements and Assessment WC - Nurse 1 - General Ulcer Measurement Start: 02/11/18 11:47 Freq: Status: Active Protocol: Activity Type Activity Date Activity User E-Sign Co-Sign Detail Recorded Client Recorded Date Recorded By Document 02/11/18 11:59 [id number] 02/11/18 12:12 02/11/18 11:59 Wound Center Nurse 1 [Ulcer Assessment] 1. R abd -Combined with other wound No -Current Size (cm) - Length 1.5 -Current Size (cm) - Width 11.7 -Current Size (cm) - Depth 1.3 -Total Square Cm 17.55 -Date of Last Picture (Recall this 02/11/18 field) -Photo Taken Yes -Epithelialization None Present -Tunneling No -Undermining/Tunneling Yes -Undermining/Tunneling Starts (O' 12 clock) -Undermining/Tunneling Ends (O'clock) 2 -Maximum Distance (cm) 7.1 -Circular Undermining No -Exudate Amt Medium (34-66%) -Exudate Type Serosanguineous -Wound Margin Distinct, Outline Attached -Granulation Amt Large (67-100%) -Granulation Quality Red -Slough/Fibrin Yes -Necrosis Amt None Present (0 %) -Necrotic Tissue Type Adherent Slough -Structure Exposed None/Limited to Skin Breakdown -Texture (Carrie-wound Skin Appearance) Assessed Scarring -Moisture (Carrie-wound Skin Appearance No Abnormality ) Assessed -Temperature (Carrie-wound Skin No Abnormality Appearance) (Pt Warm) -Tenderness on Palpation (Carrie-wound Yes Skin Appearance) -Ulcer Cleansing Wound Cleanser -Foul Odor after Cleansing No -Anesthetic Used 4% Lidocaine Solution [Edema Assessment] -Lower Limb Edema Present NA - Nurse 2 - General Ulcer CM Notes Start: 02/11/18 11:47 Freq: Status: Active Protocol: Activity Type Activity Date Activity User E-Sign Co-Sign Detail Recorded Client Recorded Date Recorded By Document 02/11/18 12:28 MW [id number] 02/11/18 12:34 MW 02/11/18 12:28 Wound Center Nurse 2 [Procedure/Treatment] 1. R abd -Time 12:28 -Correct Patient Yes -Correct Side, Site, Position Yes -Correct Procedure Yes -Procedure Performed Yes -Type of Procedure Debridement -Clinical Debridement Subcutaneous -Post Debridement Size (cm) - Length 1.0 -Post Debridement Size (cm) - Width 13.3 -Post Debridement Size (cm) - Depth 1.0 -Total Square Cm 13.30 -Wound/Ulcer Outcome Not Healed -Ulcer Cleansing Rinsed/ Irrigated with Saline -Foul Odor after Cleansing No -Bioengineered Tissue No -Bleeding Controlled with Pressure -Other TUNNEL @ 2 - 7. 0CM -Treatment Response Procedure Tolerated Well [See Physician Procedure note for Specifics] Pain Scale: 0-10 Numeric [Pain] -Is Patient Pain Free? Yes Musculoskeletal: No Muscle Wasting Neurological: Cranial nerves II-XII grossly intact Psych/Mental Status: Normal Affect Debridement Note Post-Debridement Measurements/Treatment - Nurse 2 - General Ulcer CM Notes Start: 02/11/18 11:47 Freq: Status: Active Protocol: Activity Type Activity Date Activity User E-Sign Co-Sign Detail Recorded Client Recorded Date Recorded By Document 02/11/18 12:28 MW [id number] 02/11/18 12:34 MW 02/11/18 12:28 Wound Center Nurse 2 1. R abd -Time 12:28 -Correct Patient Yes -Correct Side, Site, Position Yes -Correct Procedure Yes -Procedure Performed Yes -Type of Procedure Debridement -Clinical Debridement Subcutaneous -Post Debridement Size (cm) - Length 1.0 -Post Debridement Size (cm) - Width 13.3 -Post Debridement Size (cm) - Depth 1.0 -Total Square Cm 13.30 -Wound/Ulcer Outcome Not Healed -Ulcer Cleansing Rinsed/ Irrigated with Saline -Foul Odor after Cleansing No -Bioengineered Tissue No -Bleeding Controlled with Pressure -Other TUNNEL @ 2 - 7. 0CM -Treatment Response Procedure Tolerated Well Pain Scale: 0-10 Numeric Is Patient Pain Free? Yes Wound debrided: Left-sided abdominal wound Wound Grade/Stage: Stage 3 Type of Debridement: Excisional debridement Anesthesia Used: 4% Lidocaine Solution Depth: Down to and including healthy tissue Percentage of wound debrided: 100 Instrument Used: 7mm curette Tissue Removed: Slough and devitalized tissue Severity: Fat Layer Exposed Amount of bleeding with debridement: Mild Bleeding Controlled with: Pressure Patient tolerated procedure well Assessment/Plan Assessment: Nonhealing postsurgical abdominal wound. Wound VAC management. Status post partial nephrectomy secondary to renal cell carcinoma. Plan: Debridement done as documented above. Procedure was well-tolerated. No concerning signs of infection at this time. Increase wound VAC to 150 mmHg. Change every 48 hours. Increased protein intake/supplements recommended. All her questions were answered and she was advised to call with any questions or concerns. Follow-up in 1 week. This note was generated with [employer] dictation software. It may contain incorrect words, spelling, and punctuation that were not noted in checking the note before signing.
[2018-02-18 12:06] VITALS: BP 167/119; PULSE 112; RESP 20; TEMP 36.8; BMI 49.4
--- NOTE | 2018-02-18 13:00 | PCM.WC.PN ---
(1) Nonhealing surgical wound Status: Chronic Current Visit: Yes Code(s): T81.89XA - Other complications of procedures, not elsewhere classified, initial encounter (2) Hx of partial nephrectomy Status: Acute Current Visit: No Code(s): Z90.5 - Acquired absence of kidney (3) Renal cell cancer Status: Acute Current Visit: No Code(s): C64.9 - Malignant neoplasm of unspecified kidney, except renal pelvis Type of Wound Chief Complaint: Ulcer to right lower abdomen History of Wound: Ms. Rosenberg is a 37-year-old who presents to the wound center for management of a postsurgical wound. She had partial nephrectomy on 09 December at the [facility] however, appeared to have developed complications with surgical wound dehiscence for which she was subsequently sent at [facility] where she had surgical debridement in January. She had a wound VAC placed after surgery on the 04 of February and now presents here for management of her wound and Vac. She denies fever, chills or change in her bowel habits. Progress of Wound: Stable. No complaints at this time. - Physical Exam Vital Signs Temp Pulse Resp BP 98.2 F 112 H 20 H 167/119 H 02/18/18 12:06 02/18/18 12:06 02/18/18 12:06 02/18/18 12:06 General: Alert, Oriented x3, Cooperative, No apparent distress HEENT: Atraumatic Oral: Moist Mucosa Neck: Supple Lungs: Normal air movement Abdomen: Soft, Obese Extremities: No cyanosis Skin: Ulcer/ Wound Wound Measurements and Assessment WC - Nurse 1 - General Ulcer Measurement Start: 02/11/18 11:47 Freq: Status: Active Protocol: Activity Type Activity Date Activity User E-Sign Co-Sign Detail Recorded Client Recorded Date Recorded By Document 02/18/18 12:06 [id number] 02/18/18 12:13 02/18/18 12:06 Wound Center Nurse 1 [Ulcer Assessment] 1. R abd -Combined with other wound No -Current Size (cm) - Length 1.0 -Current Size (cm) - Width 11.0 -Current Size (cm) - Depth 0.4 -Total Square Cm 11.00 -Tunneling Yes -Tunneling Position (O'clock) 2 -Tunneling Distance (cm) 6.5 -Undermining/Tunneling No -Circular Undermining No -Exudate Amt Medium (34-66%) -Exudate Type Serosanguineous -Wound Margin Distinct, Outline Attached -Granulation Amt Small (1-33%) -Granulation Quality Red -Necrosis Amt Small (1-33%) -Necrotic Tissue Type Adherent Slough -Texture (Carrie-wound Skin Appearance) Assessed Scarring -Moisture (Carrie-wound Skin Appearance No Abnormality ) Assessed -Color (Carrie-wound Skin Appearance) No Abnormality Assessed -Temperature (Carrie-wound Skin No Abnormality Appearance) (Pt Warm) -Tenderness on Palpation (Carrie-wound No Skin Appearance) -Ulcer Cleansing Rinsed/ Irrigated with Saline -Foul Odor after Cleansing No -Anesthetic Used 4% Lidocaine Solution WC - Nurse 2 - General Ulcer CM Notes Start: 02/11/18 11:47 Freq: Status: Active Protocol: Activity Type Activity Date Activity User E-Sign Co-Sign Detail Recorded Client Recorded Date Recorded By Document 02/18/18 12:32 MW [id number] 02/18/18 12:35 MW 02/18/18 12:32 Wound Center Nurse 2 [Procedure/Treatment] -Time 12:32 -Correct Patient Yes -Correct Side, Site, Position Yes -Correct Procedure Yes -Procedure Performed Yes -Type of Procedure Debridement -Clinical Debridement Subcutaneous -Post Debridement Size (cm) - Length 1.3 -Post Debridement Size (cm) - Width 12.0 -Post Debridement Size (cm) - Depth 1.0 -Total Square Cm 15.60 -Wound/Ulcer Outcome Not Healed -Ulcer Cleansing Rinsed/ Irrigated with Saline -Foul Odor after Cleansing No -Bioengineered Tissue No -Bleeding Controlled with Pressure -Other tunnel @ 2 - 7. 2cm, @6 - 6.0cm -Treatment Response Procedure Tolerated Well [See Physician Procedure note for Specifics] Pain Scale: 0-10 Numeric [Pain] -Is Patient Pain Free? Yes Musculoskeletal: No Muscle Wasting Neurological: Cranial nerves II-XII grossly intact Psych/Mental Status: Normal Affect Debridement Note Post-Debridement Measurements/Treatment - Nurse 2 - General Ulcer CM Notes Start: 02/11/18 11:47 Freq: Status: Active Protocol: Activity Type Activity Date Activity User E-Sign Co-Sign Detail Recorded Client Recorded Date Recorded By Document 02/11/18 12:28 MW [id number] 02/11/18 12:34 MW Document 02/18/18 12:32 MW [id number] 02/18/18 12:35 MW 02/11/18 02/18/18 12:28 12:32 Wound Center Nurse 2 1. R abd -Time 12:28 12:32 -Correct Patient Yes Yes -Correct Side, Site, Position Yes Yes -Correct Procedure Yes Yes -Procedure Performed Yes Yes -Type of Procedure Debridement Debridement -Clinical Debridement Subcutaneous Subcutaneous -Post Debridement Size (cm) - Length 1.0 1.3 -Post Debridement Size (cm) - Width 13.3 12.0 -Post Debridement Size (cm) - Depth 1.0 1.0 -Total Square Cm 13.30 15.60 -Wound/Ulcer Outcome Not Healed Not Healed -Ulcer Cleansing Rinsed/ Rinsed/ Irrigated with Irrigated with Saline Saline -Foul Odor after Cleansing No No -Bioengineered Tissue No No -Bleeding Controlled with Pressure Pressure -Other TUNNEL @ 2 - 7. tunnel @ 2 - 7. 0CM 2cm, @6 - 6.0cm -Treatment Response Procedure Procedure Tolerated Well Tolerated Well Pain Scale: 0-10 Numeric Is Patient Pain Free? Yes Yes Wound debrided: Left-sided abdominal wound Wound Grade/Stage: Stage III Type of Debridement: Excisional debridement Anesthesia Used: 4% Lidocaine Solution Depth: Down to and including healthy tissue, in the subcutaneous layer Percentage of wound debrided: 100 Instrument Used: 7mm curette Tissue Removed: Slough and devitalized tissue Severity: Fat Layer Exposed Amount of bleeding with debridement: Mild Bleeding Controlled with: Pressure Patient tolerated procedure well Assessment/Plan Active Problems (Last Reviewed 01/31/18 @ 01:49 by Giancarlo Burt MD) Nonhealing surgical wound (Chronic) Assessment: Nonhealing postsurgical abdominal wound. Wound VAC management. Status post partial nephrectomy secondary to renal cell carcinoma. Plan: Stable wound. Tunnel at 2:00 still present. Debridement done as documented above. Procedure was well-tolerated. Continue wound VAC at 150 mmHg. Change every 48 hours. Increased protein intake/supplements recommended. All her questions were answered and she was advised to call with any questions or concerns. Follow-up in 1 week. This note was generated with [employer] software. It may contain incorrect words, spelling, and punctuation that were not noted in checking the note before signing.
--- NOTE | 2018-02-18 13:03 | PN.PCM_ITS ---
(1) Nonhealing surgical wound Status: Chronic Current Visit: Yes Code(s): T81.89XA - Other complications of procedures, not elsewhere classified, initial encounter (2) Hx of partial nephrectomy Status: Acute Current Visit: No Code(s): Z90.5 - Acquired absence of kidney (3) Renal cell cancer Status: Acute Current Visit: No Code(s): C64.9 - Malignant neoplasm of unspecified kidney, except renal pelvis Type of Wound Chief Complaint: Ulcer to right lower abdomen History of Wound: Ms. Rosenberg is a 37-year-old who presents to the wound center for management of a postsurgical wound. She had partial nephrectomy on 09 December at the [facility] however, appeared to have developed complications with surgical wound dehiscence for which she was subsequently sent at [facility] where she had surgical debridement in January. She had a wound VAC placed after surgery on the 04 of February and now presents here for management of her wound and Vac. She denies fever, chills or change in her bowel habits. Progress of Wound: Stable. No complaints at this time. - Physical Exam Vital Signs Temp Pulse Resp BP 98.2 F 112 H 20 H 167/119 H 02/18/18 12:06 02/18/18 12:06 02/18/18 12:06 02/18/18 12:06 General: Alert, Oriented x3, Cooperative, No apparent distress HEENT: Atraumatic Oral: Moist Mucosa Neck: Supple Lungs: Normal air movement Abdomen: Soft, Obese Extremities: No cyanosis Skin: Ulcer/ Wound Wound Measurements and Assessment WC - Nurse 1 - General Ulcer Measurement Start: 02/11/18 11:47 Freq: Status: Active Protocol: Activity Type Activity Date Activity User E-Sign Co-Sign Detail Recorded Client Recorded Date Recorded By Document 02/18/18 12:06 [id number] 02/18/18 12:13 02/18/18 12:06 Wound Center Nurse 1 [Ulcer Assessment] 1. R abd -Combined with other wound No -Current Size (cm) - Length 1.0 -Current Size (cm) - Width 11.0 -Current Size (cm) - Depth 0.4 -Total Square Cm 11.00 -Tunneling Yes -Tunneling Position (O'clock) 2 -Tunneling Distance (cm) 6.5 -Undermining/Tunneling No -Circular Undermining No -Exudate Amt Medium (34-66%) -Exudate Type Serosanguineous -Wound Margin Distinct, Outline Attached -Granulation Amt Small (1-33%) -Granulation Quality Red -Necrosis Amt Small (1-33%) -Necrotic Tissue Type Adherent Slough -Texture (Carrie-wound Skin Appearance) Assessed Scarring -Moisture (Carrie-wound Skin Appearance No Abnormality ) Assessed -Color (Carrie-wound Skin Appearance) No Abnormality Assessed -Temperature (Carrie-wound Skin No Abnormality Appearance) (Pt Warm) -Tenderness on Palpation (Carrie-wound No Skin Appearance) -Ulcer Cleansing Rinsed/ Irrigated with Saline -Foul Odor after Cleansing No -Anesthetic Used 4% Lidocaine Solution WC - Nurse 2 - General Ulcer CM Notes Start: 02/11/18 11:47 Freq: Status: Active Protocol: Activity Type Activity Date Activity User E-Sign Co-Sign Detail Recorded Client Recorded Date Recorded By Document 02/18/18 12:32 MW [id number] 02/18/18 12:35 MW 02/18/18 12:32 Wound Center Nurse 2 [Procedure/Treatment] -Time 12:32 -Correct Patient Yes -Correct Side, Site, Position Yes -Correct Procedure Yes -Procedure Performed Yes -Type of Procedure Debridement -Clinical Debridement Subcutaneous -Post Debridement Size (cm) - Length 1.3 -Post Debridement Size (cm) - Width 12.0 -Post Debridement Size (cm) - Depth 1.0 -Total Square Cm 15.60 -Wound/Ulcer Outcome Not Healed -Ulcer Cleansing Rinsed/ Irrigated with Saline -Foul Odor after Cleansing No -Bioengineered Tissue No -Bleeding Controlled with Pressure -Other tunnel @ 2 - 7. 2cm, @6 - 6.0cm -Treatment Response Procedure Tolerated Well [See Physician Procedure note for Specifics] Pain Scale: 0-10 Numeric [Pain] -Is Patient Pain Free? Yes Musculoskeletal: No Muscle Wasting Neurological: Cranial nerves II-XII grossly intact Psych/Mental Status: Normal Affect Debridement Note Post-Debridement Measurements/Treatment - Nurse 2 - General Ulcer CM Notes Start: 02/11/18 11:47 Freq: Status: Active Protocol: Activity Type Activity Date Activity User E-Sign Co-Sign Detail Recorded Client Recorded Date Recorded By Document 02/11/18 12:28 MW [id number] 02/11/18 12:34 MW Document 02/18/18 12:32 MW [id number] 02/18/18 12:35 MW 02/11/18 02/18/18 12:28 12:32 Wound Center Nurse 2 1. R abd -Time 12:28 12:32 -Correct Patient Yes Yes -Correct Side, Site, Position Yes Yes -Correct Procedure Yes Yes -Procedure Performed Yes Yes -Type of Procedure Debridement Debridement -Clinical Debridement Subcutaneous Subcutaneous -Post Debridement Size (cm) - Length 1.0 1.3 -Post Debridement Size (cm) - Width 13.3 12.0 -Post Debridement Size (cm) - Depth 1.0 1.0 -Total Square Cm 13.30 15.60 -Wound/Ulcer Outcome Not Healed Not Healed -Ulcer Cleansing Rinsed/ Rinsed/ Irrigated with Irrigated with Saline Saline -Foul Odor after Cleansing No No -Bioengineered Tissue No No -Bleeding Controlled with Pressure Pressure -Other TUNNEL @ 2 - 7. tunnel @ 2 - 7. 0CM 2cm, @6 - 6.0cm -Treatment Response Procedure Procedure Tolerated Well Tolerated Well Pain Scale: 0-10 Numeric Is Patient Pain Free? Yes Yes Wound debrided: Left-sided abdominal wound Wound Grade/Stage: Stage III Type of Debridement: Excisional debridement Anesthesia Used: 4% Lidocaine Solution Depth: Down to and including healthy tissue, in the subcutaneous layer Percentage of wound debrided: 100 Instrument Used: 7mm curette Tissue Removed: Slough and devitalized tissue Severity: Fat Layer Exposed Amount of bleeding with debridement: Mild Bleeding Controlled with: Pressure Patient tolerated procedure well Assessment/Plan Active Problems (Last Reviewed 01/31/18 @ 01:49 by Giancarlo Burt MD) Nonhealing surgical wound (Chronic) Assessment: Nonhealing postsurgical abdominal wound. Wound VAC management. Status post partial nephrectomy secondary to renal cell carcinoma. Plan: Stable wound. Tunnel at 2:00 still present. Debridement done as d ocumented above. Procedure was well-tolerated. Continue wound VAC at 150 mmHg. Change every 48 hours. Increased protein intake/supplements recommended. All her questions were answered and she was advised to call with any questions or concerns. Follow-up in 1 week. This note was generated with [employer] software. It may contain incorrect words, spelling, and punctuation that were not noted in checking the note before signing.
[2018-02-25 10:24] VITALS: BP 163/101; PULSE 108; RESP 16; TEMP 35.6; BMI 49.4
--- NOTE | 2018-02-25 12:29 | PCM.WC.PN ---
(1) Nonhealing surgical wound Status: Chronic Current Visit: Yes Code(s): T81.89XA - Other complications of procedures, not elsewhere classified, initial encounter (2) Hx of partial nephrectomy Status: Acute Current Visit: No Code(s): Z90.5 - Acquired absence of kidney (3) Renal cell cancer Status: Acute Current Visit: No Code(s): C64.9 - Malignant neoplasm of unspecified kidney, except renal pelvis Type of Wound Chief Complaint: Ulcer to right lower abdomen History of Wound: Ms. Rosenberg is a 37-year-old who presents to the wound center for management of a postsurgical wound. She had partial nephrectomy on 09 December at the [facility] however, appeared to have developed complications with surgical wound dehiscence for which she was subsequently sent at [facility] where she had surgical debridement in January. She had a wound VAC placed after surgery on the 04 of February and now presents here for management of her wound and Vac. She denies fever, chills or change in her bowel habits. Progress of Wound: Improving. - Physical Exam Vital Signs Temp Pulse Resp BP 96.0 F L 108 H 16 163/101 H 02/25/18 10:24 02/25/18 10:24 02/25/18 10:24 02/25/18 10:24 General: Alert, Oriented x3, Cooperative, No apparent distress HEENT: Atraumatic Oral: Moist Mucosa Neck: Supple Lungs: Normal air movement Abdomen: Soft, Obese Extremities: No cyanosis Skin: Ulcer/ Wound Wound Measurements and Assessment WC - Nurse 1 - General Ulcer Measurement Start: 02/11/18 11:47 Freq: Status: Active Protocol: Activity Type Activity Date Activity User E-Sign Co-Sign Detail Recorded Client Recorded Date Recorded By Document 02/25/18 10:24 [id number] 02/25/18 10:33 02/25/18 10:24 Wound Center Nurse 1 [Ulcer Assessment] 1. R abd -Combined with other wound No -Current Size (cm) - Length 0.7 -Current Size (cm) - Width 9.0 -Current Size (cm) - Depth 0.2 -Total Square Cm 6.30 -Photo Taken No -Epithelialization Small 1-33% -Tunneling Yes -Tunneling Position (O'clock) 2 -Tunneling Distance (cm) 6.7 -Undermining/Tunneling No -Circular Undermining No -Exudate Amt Medium (34-66%) -Exudate Type Serosanguineous -Wound Margin Distinct, Outline Attached -Granulation Amt Medium (34-66%) -Granulation Quality [place] Red -Slough/Fibrin Yes -Necrosis Amt None Present (0 %) -Necrotic Tissue Type Adherent Slough -Structure Exposed None/Limited to Skin Breakdown -Texture (Carrie-wound Skin Appearance) Scarring -Moisture (Carrie-wound Skin Appearance No Abnormality ) Assessed -Color (Carrie-wound Skin Appearance) No Abnormality Assessed -Temperature (Carrie-wound Skin No Abnormality Appearance) (Pt Warm) -Tenderness on Palpation (Carrie-wound Yes Skin Appearance) -Ulcer Cleansing Wound Cleanser -Foul Odor after Cleansing No -Anesthetic Used 4% Lidocaine Solution [Edema Assessment] -Lower Limb Edema Present NA WC - Nurse 2 - General Ulcer CM Notes Start: 02/11/18 11:47 Freq: Status: Active Protocol: Activity Type Activity Date Activity User E-Sign Co-Sign Detail Recorded Client Recorded Date Recorded By Document 02/25/18 10:47 MW [id number] 02/25/18 10:50 MW 02/25/18 10:47 Wound Center Nurse 2 [Procedure/Treatment] 1. R abd -Time 10:48 -Correct Patient Yes -Correct Side, Site, Position Yes -Correct Procedure Yes -Procedure Performed Yes -Type of Procedure Debridement -Clinical Debridement Subcutaneous -Post Debridement Size (cm) - Length 0.5 -Post Debridement Size (cm) - Width 6.5 -Post Debridement Size (cm) - Depth 0.8 -Total Square Cm 3.25 -Wound/Ulcer Outcome Not Healed -Ulcer Cleansing Rinsed/ Irrigated with Saline -Foul Odor after Cleansing No -Bioengineered Tissue No -Bleeding Controlled with Pressure -Treatment Response Procedure Tolerated Well [See Physician Procedure note for Specifics] Pain Scale: 0-10 Numeric [Pain] -Is Patient Pain Free? Yes Musculoskeletal: No Muscle Wasting Neurological: Cranial nerves II-XII grossly intact Psych/Mental Status: Normal Affect Debridement Note Post-Debridement Measurements/Treatment WC - Nurse 2 - General Ulcer CM Notes Start: 02/11/18 11:47 Freq: Status: Active Protocol: Activity Type Activity Date Activity User E-Sign Co-Sign Detail Recorded Client Recorded Date Recorded By Document 02/11/18 12:28 MW [id number] 02/11/18 12:34 MW Document 02/18/18 12:32 MW [id number] 02/18/18 12:35 MW Document 02/25/18 10:47 MW [id number] 02/25/18 10:50 MW 02/11/18 02/18/18 02/25/18 12:28 12:32 10:47 Wound Center Nurse 2 1. R abd -Time 12:28 12:32 10:48 -Correct Patient Yes Yes Yes -Correct Side, Site, Position Yes Yes Yes -Correct Procedure Yes Yes Yes -Procedure Performed Yes Yes Yes -Type of Procedure Debridement Debridement Debridement -Clinical Debridement Subcutaneous Subcutaneous Subcutaneous -Post Debridement Size (cm) - Length 1.0 1.3 0.5 -Post Debridement Size (cm) - Width 13.3 12.0 6.5 -Post Debridement Size (cm) - Depth 1.0 1.0 0.8 -Total Square Cm 13.30 15.60 3.25 -Wound/Ulcer Outcome Not Healed Not Healed Not Healed -Ulcer Cleansing Rinsed/ Rinsed/ Rinsed/ Irrigated with Irrigated with Irrigated with Saline Saline Saline -Foul Odor after Cleansing No No No -Bioengineered Tissue No No No -Bleeding Controlled with Pressure Pressure Pressure -Other TUNNEL @ 2 - 7. tunnel @ 2 - 7. 0CM 2cm, @6 - 6.0cm -Treatment Response Procedure Procedure Procedure Tolerated Well Tolerated Well Tolerated Well Pain Scale: 0-10 Numeric Is Patient Pain Free? Yes Yes Yes Wound debrided: Abdominal wound Wound Grade/Stage: Stage III Type of Debridement: Excisional debridement Anesthesia Used: 4% Lidocaine Solution Depth: Down to and including healthy tissue, in the subcutaneous layer Percentage of wound debrided: 100 Instrument Used: 3mm curette Tissue Removed: Slough and-Devitalized tissue Severity: Fat Layer Exposed Amount of bleeding with debridement: Mild Bleeding Controlled with: Pressure Patient tolerated procedure well Assessment/Plan Active Problems (Last Reviewed 01/31/18 @ 01:49 by Giancarlo Burt MD) Nonhealing surgical wound (Chronic) Assessment: Nonhealing postsurgical abdominal wound. Wound VAC management. Status post partial nephrectomy secondary to renal cell carcinoma. Plan: Significant improvement in the past week. Debridement done as documented above. Procedure was well-tolerated. Continue wound VAC at 150 mmHg. Change every 48 hours. Increased protein intake/supplements recommended. All her questions were answered and she was advised to call with any questions or concerns. Follow-up in 1 week. This note was generated with [employer] software. It may contain incorrect words, spelling, and punctuation that were not noted in checking the note before signing.
--- NOTE | 2018-02-25 12:40 | PN.PCM_ITS ---
(1) Nonhealing surgical wound Status: Chronic Current Visit: Yes Code(s): T81.89XA - Other complications of procedures, not elsewhere classified, initial encounter (2) Hx of partial nephrectomy Status: Acute Current Visit: No Code(s): Z90.5 - Acquired absence of kidney (3) Renal cell cancer Status: Acute Current Visit: No Code(s): C64.9 - Malignant neoplasm of unspecified kidney, except renal pelvis Type of Wound Chief Complaint: Ulcer to right lower abdomen History of Wound: Ms. Rosenberg is a 37-year-old who presents to the wound center for management of a postsurgical wound. She had partial nephrectomy on 09 December at the [facility] however, appeared to have developed complications with surgical wound dehiscence for which she was subsequently sent at [facility] where she had surgical debridement in January. She had a wound VAC placed after surgery on the 04 of February and now presents here for management of her wound and Vac. She denies fever, chills or change in her bowel habits. Progress of Wound: Improving. - Physical Exam Vital Signs Temp Pulse Resp BP 96.0 F L 108 H 16 163/101 H 02/25/18 10:24 02/25/18 10:24 02/25/18 10:24 02/25/18 10:24 General: Alert, Oriented x3, Cooperative, No apparent distress HEENT: Atraumatic Oral: Moist Mucosa Neck: Supple Lungs: Normal air movement Abdomen: Soft, Obese Extremities: No cyanosis Skin: Ulcer/ Wound Wound Measurements and Assessment WC - Nurse 1 - General Ulcer Measurement Start: 02/11/18 11:47 Freq: Status: Active Protocol: Activity Type Activity Date Activity User E-Sign Co-Sign Detail Recorded Client Recorded Date Recorded By Document 02/25/18 10:24 [id number] 02/25/18 10:33 02/25/18 10:24 Wound Center Nurse 1 [Ulcer Assessment] 1. R abd -Combined with other wound No -Current Size (cm) - Length 0.7 -Current Size (cm) - Width 9.0 -Current Size (cm) - Depth 0.2 -Total Square Cm 6.30 -Photo Taken No -Epithelialization Small 1-33% -Tunneling Yes -Tunneling Position (O'clock) 2 -Tunneling Distance (cm) 6.7 -Undermining/Tunneling No -Circular Undermining No -Exudate Amt Medium (34-66%) -Exudate Type Serosanguineous -Wound Margin Distinct, Outline Attached -Granulation Amt Medium (34-66%) -Granulation Quality [place] Red -Slough/Fibrin Yes -Necrosis Amt None Present (0 %) -Necrotic Tissue Type Adherent Slough -Structure Exposed None/Limited to Skin Breakdown -Texture (Carrie-wound Skin Appearance) Scarring -Moisture (Carrie-wound Skin Appearance No Abnormality ) Assessed -Color (Carrie-wound Skin Appearance) No Abnormality Assessed -Temperature (Carrie-wound Skin No Abnormality Appearance) (Pt Warm) -Tenderness on Palpation (Carrie-wound Yes Skin Appearance) -Ulcer Cleansing Wound Cleanser -Foul Odor after Cleansing No -Anesthetic Used 4% Lidocaine Solution [Edema Assessment] -Lower Limb Edema Present NA WC - Nurse 2 - General Ulcer CM Notes Start: 02/11/18 11:47 Freq: Status: Active Protocol: Activity Type Activity Date Activity User E-Sign Co-Sign Detail Recorded Client Recorded Date Recorded By Document 02/25/18 10:47 MW [id number] 02/25/18 10:50 MW 02/25/18 10:47 Wound Center Nurse 2 [Procedure/Treatment] 1. R abd -Time 10:48 -Correct Patient Yes -Correct Side, Site, Position Yes -Correct Procedure Yes -Procedure Performed Yes -Type of Procedure Debridement -Clinical Debridement Subcutaneous -Post Debridement Size (cm) - Length 0.5 -Post Debridement Size (cm) - Width 6.5 -Post Debridement Size (cm) - Depth 0.8 -Total Square Cm 3.25 -Wound/Ulcer Outcome Not Healed -Ulcer Cleansing Rinsed/ Irrigated with Saline -Foul Odor after Cleansing No -Bioengineered Tissue No -Bleeding Controlled with Pressure -Treatment Response Procedure Tolerated Well [See Physician Procedure note for Specifics] Pain Scale: 0-10 Numeric [Pain] -Is Patient Pain Free? Yes Musculoskeletal: No Muscle Wasting Neurological: Cranial nerves II-XII grossly intact Psych/Mental Status: Normal Affect Debridement Note Post-Debridement Measurements/Treatment WC - Nurse 2 - General Ulcer CM Notes Start: 02/11/18 11:47 Freq: Status: Active Protocol: Activity Type Activity Date Activity User E-Sign Co-Sign Detail Recorded Client Recorded Date Recorded By Document 02/11/18 12:28 MW [id number] 02/11/18 12:34 MW Document 02/18/18 12:32 MW [id number] 02/18/18 12:35 MW Document 02/25/18 10:47 MW [id number] 02/25/18 10:50 MW 02/11/18 02/18/18 02/25/18 12:28 12:32 10:47 Wound Center Nurse 2 1. R abd -Time 12:28 12:32 10:48 -Correct Patient Yes Yes Yes -Correct Side, Site, Position Yes Yes Yes -Correct Procedure Yes Yes Yes -Procedure Performed Yes Yes Yes -Type of Procedure Debridement Debridement Debridement -Clinical Debridement Subcutaneous Subcutaneous Subcutaneous -Post Debridement Size (cm) - Length 1.0 1.3 0.5 -Post Debridement Size (cm) - Width 13.3 12.0 6.5 -Post Debridement Size (cm) - Depth 1.0 1.0 0.8 -Total Square Cm 13.30 15.60 3.25 -Wound/Ulcer Outcome Not Healed Not Healed Not Healed -Ulcer Cleansing Rinsed/ Rinsed/ Rinsed/ Irrigated with Irrigated with Irrigated with Saline Saline Saline -Foul Odor after Cleansing No No No -Bioengineered Tissue No No No -Bleeding Controlled with Pressure Pressure Pressure -Other TUNNEL @ 2 - 7. tunnel @ 2 - 7. 0CM 2cm, @6 - 6.0cm -Treatment Response Procedure Procedure Procedure Tolerated Well Tolerated Well Tolerated Well Pain Scale: 0-10 Numeric Is Patient Pain Free? Yes Yes Yes Wound debrided: Abdominal wound Wound Grade/Stage: Stage III Type of Debridement: Excisional debridement Anesthesia Used: 4% Lidocaine Solution Depth: Down to and including healthy tissue, in the subcutaneous layer Percentage of wound debrided: 100 Instrument Used: 3mm curette Tissue Removed: Slough and-Devitalized tissue Severity: Fat Layer Exposed Amount of bleeding with debridement: Mild Bleeding Controlled with: Pressure Patient tolerated procedure well Assessment/Plan Active Problems (Last Reviewed 01/31/18 @ 01:49 by Giancarlo Burt MD) Nonhealing surgical wound (Chronic) Assessment: Nonhealing postsurgical abdominal wound. Wound VAC management. Status post partial nephrectomy secondary to renal cell carcinoma. Plan: Significant improvement in the past week. Debridement done as documented above. Procedure was well-tolerated. Continue wound VAC at 150 mmHg. Change every 48 hours. Increased protein intake/supplements recommended. All her questions were answered and she was advised to call with any questions or concerns. Follow-up in 1 week. This note was generated with [employer] software. It may contain incorrect words, spelling, and punctuation that were not noted in checking the note before signing.
[2018-03-03 10:58] VITALS: BP 157/101; PULSE 103; RESP 18; TEMP 36.7; BMI 49.4
--- NOTE | 2018-03-03 12:34 | PCM.WC.PN ---
(1) Nonhealing surgical wound Status: Chronic Current Visit: Yes Code(s): T81.89XA - Other complications of procedures, not elsewhere classified, initial encounter (2) Hx of partial nephrectomy Status: Acute Current Visit: No Code(s): Z90.5 - Acquired absence of kidney (3) Renal cell cancer Status: Acute Current Visit: No Code(s): C64.9 - Malignant neoplasm of unspecified kidney, except renal pelvis Type of Wound Chief Complaint: Ulcer to right lower abdomen History of Wound: Ms. Rosenbreg is a 37-year-old who presents to the wound center for management of a postsurgical wound. She had partial nephrectomy on 09 December at the [facility] however, appeared to have developed complications with surgical wound dehiscence for which she was subsequently sent at [facility] where she had surgical debridement in January. She had a wound VAC placed after surgery on the 04 of February and now presents here for management of her wound and Vac. She denies fever, chills or change in her bowel habits. Progress of Wound: Improving. - Physical Exam Vital Signs Temp Pulse Resp BP 98.0 F 103 H 18 157/101 H 03/03/18 10:58 03/03/18 10:58 03/03/18 10:58 03/03/18 10:58 General: Alert, Oriented x3, Cooperative, No apparent distress HEENT: Atraumatic Oral: Moist Mucosa Neck: Supple Lungs: Normal air movement Cardiovascular: Regular rate Abdomen: Soft, Obese Extremities: No cyanosis Skin: Ulcer/ Wound Wound Measurements and Assessment WC - Nurse 1 - General Ulcer Measurement Start: 02/11/18 11:47 Freq: Status: Active Protocol: Activity Type Activity Date Activity User E-Sign Co-Sign Detail Recorded Client Recorded Date Recorded By Document 03/03/18 10:58 [id number] 03/03/18 11:08 03/03/18 10:58 Wound Center Nurse 1 [Ulcer Assessment] 1. R abd -Combined with other wound No -Current Size (cm) - Length 0.5 -Current Size (cm) - Width 3.9 -Current Size (cm) - Depth 0.3 -Total Square Cm 1.95 -Photo Taken No -Epithelialization None Present -Tunneling Yes -Tunneling Position (O'clock) 2 -Tunneling Distance (cm) 8.2 -Undermining/Tunneling No -Circular Undermining No -Exudate Amt Large (67-100%) -Exudate Type Yellow/Green -Wound Margin Distinct, Outline Attached -Granulation Amt Medium (34-66%) -Granulation Quality Red -Slough/Fibrin Yes -Necrosis Amt None Present (0 %) -Necrotic Tissue Type Adherent Slough -Texture (Carrie-wound Skin Appearance) Scarring -Moisture (Carrie-wound Skin Appearance No Abnormality ) Assessed -Color (Carrie-wound Skin Appearance) No Abnormality Assessed -Temperature (Carrie-wound Skin No Abnormality Appearance) (Pt Warm) -Tenderness on Palpation (Carrie-wound Yes Skin Appearance) -Ulcer Cleansing soap -Foul Odor after Cleansing Yes -Anesthetic Used 4% Lidocaine Solution [Edema Assessment] -Lower Limb Edema Present NA WC - Nurse 2 - General Ulcer CM Notes Start: 02/11/18 11:47 Freq: Status: Active Protocol: Activity Type Activity Date Activity User E-Sign Co-Sign Detail Recorded Client Recorded Date Recorded By Document 03/03/18 11:24 MW [id number] 03/03/18 11:33 MW 03/03/18 11:24 Wound Center Nurse 2 [Procedure/Treatment] 1. R abd -Time 11:24 -Correct Patient Yes -Correct Side, Site, Position Yes -Correct Procedure Yes -Procedure Performed Yes -Type of Procedure Debridement -Clinical Debridement Subcutaneous -Post Debridement Size (cm) - Length 0.3 -Post Debridement Size (cm) - Width 3.1 -Post Debridement Size (cm) - Depth 0.6 -Total Square Cm 0.93 -Wound/Ulcer Outcome Not Healed -Ulcer Cleansing Rinsed/ Irrigated with Saline -Foul Odor after Cleansing No -Bioengineered Tissue No -Bleeding Controlled with Pressure -Other tunnel @ 2 - 8. 2cm -Treatment Response Procedure Tolerated Well [See Physician Procedure note for Specifics] Pain Scale: 0-10 Numeric [Pain] -Is Patient Pain Free? Yes Musculoskeletal: No Muscle Wasting Neurological: Cranial nerves II-XII grossly intact Psych/Mental Status: Normal Affect Debridement Note Post-Debridement Measurements/Treatment WC - Nurse 2 - General Ulcer CM Notes Start: 02/11/18 11:47 Freq: Status: Active Protocol: Activity Type Activity Date Activity User E-Sign Co-Sign Detail Recorded Client Recorded Date Recorded By Document 02/11/18 12:28 MW [id number] 02/11/18 12:34 MW Document 02/18/18 12:32 MW [id number] 02/18/18 12:35 MW Document 02/25/18 10:47 MW [id number] 02/25/18 10:50 MW Document 03/03/18 11:24 MW [id number] 03/03/18 11:33 MW 02/11/18 02/18/18 02/25/18 12:28 12:32 10:47 Wound Center Nurse 2 1. R abd -Time 12:28 12:32 10:48 -Correct Patient Yes Yes Yes -Correct Side, Site, Position Yes Yes Yes -Correct Procedure Yes Yes Yes -Procedure Performed Yes Yes Yes -Type of Procedure Debridement Debridement Debridement -Clinical Debridement Subcutaneous Subcutaneous Subcutaneous -Post Debridement Size (cm) - Length 1.0 1.3 0.5 -Post Debridement Size (cm) - Width 13.3 12.0 6.5 -Post Debridement Size (cm) - Depth 1.0 1.0 0.8 -Total Square Cm 13.30 15.60 3.25 -Wound/Ulcer Outcome Not Healed Not Healed Not Healed -Ulcer Cleansing Rinsed/ Rinsed/ Rinsed/ Irrigated with Irrigated with Irrigated with Saline Saline Saline -Foul Odor after Cleansing No No No -Bioengineered Tissue No No No -Bleeding Controlled with Pressure Pressure Pressure -Other TUNNEL @ 2 - 7. tunnel @ 2 - 7. 0CM 2cm, @6 - 6.0cm -Treatment Response Procedure Procedure Procedure Tolerated Well Tolerated Well Tolerated Well Pain Scale: 0-10 Numeric Is Patient Pain Free? Yes Yes Yes 03/03/18 11:24 Wound Center Nurse 2 1. R abd -Time 11:24 -Correct Patient Yes -Correct Side, Site, Position Yes -Correct Procedure Yes -Procedure Performed Yes -Type of Procedure Debridement -Clinical Debridement Subcutaneous -Post Debridement Size (cm) - Length 0.3 -Post Debridement Size (cm) - Width 3.1 -Post Debridement Size (cm) - Depth 0.6 -Total Square Cm 0.93 -Wound/Ulcer Outcome Not Healed -Ulcer Cleansing Rinsed/ Irrigated with Saline -Foul Odor after Cleansing No -Bioengineered Tissue No -Bleeding Controlled with Pressure -Other tunnel @ 2 - 8. 2cm -Treatment Response Procedure Tolerated Well Pain Scale: 0-10 Numeric Is Patient Pain Free? Yes Wound debrided: Abdominal Wound Grade/Stage: Stage III Type of Debridement: Excisional debridement Anesthesia Used: 4% Lidocaine Solution Depth: Down to and including healthy tissue, in the subcutaneous layer Percentage of wound debrided: 100 Instrument Used: 3mm curette Tissue Removed: Slough and devitalized tissue Severity: Fat Layer Exposed Amount of bleeding with debridement: Mild Bleeding Controlled with: Pressure Patient tolerated procedure well Assessment/Plan Active Problems (Last Reviewed 01/31/18 @ 01:49 by Giancarlo Burt MD) Nonhealing surgical wound (Chronic) Assessment: Nonhealing postsurgical abdominal wound. Wound VAC management. Status post partial nephrectomy secondary to renal cell carcinoma. Plan: Wound circumference is improving however significant willie colored drainage noted today. She denies pain or concerns with drainage over the last week. Debridement done as documented above. Procedure was well-tolerated. Continue wound VAC at 150 mmHg. Change every 48 hours. May switch to a snap VAC next week. Due to drainage, will get an abdominal pelvic CAT scan. Increased protein intake/supplements recommended. All her questions were answered and she was advised to call with any questions or concerns. Follow-up in 1 week. This note was generated with [employer] dictation software. It may contain incorrect words, spelling, and punctuation that were not noted in checking the note before signing.
--- NOTE | 2018-03-03 12:37 | PN.PCM_ITS ---
(1) Nonhealing surgical wound Status: Chronic Current Visit: Yes Code(s): T81.89XA - Other complications of procedures, not elsewhere classified, initial encounter (2) Hx of partial nephrectomy Status: Acute Current Visit: No Code(s): Z90.5 - Acquired absence of kidney (3) Renal cell cancer Status: Acute Current Visit: No Code(s): C64.9 - Malignant neoplasm of unspecified kidney, except renal pelvis Type of Wound Chief Complaint: Ulcer to right lower abdomen History of Wound: Ms. Rosenberg is a 37-year-old who presents to the wound center for management of a postsurgical wound. She had partial nephrectomy on 09 December at the [facility] however, appeared to have developed complications with surgical wound dehiscence for which she was subsequently sent at [facility] where she had surgical debridement in January. She had a wound VAC placed after surgery on the 04 of February and now presents here for management of her wound and Vac. She denies fever, chills or change in her bowel habits. Progress of Wound: Improving. - Physical Exam Vital Signs Temp Pulse Resp BP 98.0 F 103 H 18 157/101 H 03/03/18 10:58 03/03/18 10:58 03/03/18 10:58 03/03/18 10:58 General: Alert, Oriented x3, Cooperative, No apparent distress HEENT: Atraumatic Oral: Moist Mucosa Neck: Supple Lungs: Normal air movement Cardiovascular: Regular rate Abdomen: Soft, Obese Extremities: No cyanosis Skin: Ulcer/ Wound Wound Measurements and Assessment WC - Nurse 1 - General Ulcer Measurement Start: 02/11/18 11:47 Freq: Status: Active Protocol: Activity Type Activity Date Activity User E-Sign Co-Sign Detail Recorded Client Recorded Date Recorded By Document 03/03/18 10:58 [id number] 03/03/18 11:08 03/03/18 10:58 Wound Center Nurse 1 [Ulcer Assessment] 1. R abd -Combined with other wound No -Current Size (cm) - Length 0.5 -Current Size (cm) - Width 3.9 -Current Size (cm) - Depth 0.3 -Total Square Cm 1.95 -Photo Taken No -Epithelialization None Present -Tunneling Yes -Tunneling Position (O'clock) 2 -Tunneling Distance (cm) 8.2 -Undermining/Tunneling No -Circular Undermining No -Exudate Amt Large (67-100%) -Exudate Type Yellow/Green -Wound Margin Distinct, Outline Attached -Granulation Amt Medium (34-66%) -Granulation Quality Red -Slough/Fibrin Yes -Necrosis Amt None Present (0 %) -Necrotic Tissue Type Adherent Slough -Texture (Carrie-wound Skin Appearance) Scarring -Moisture (Carrie-wound Skin Appearance No Abnormality ) Assessed -Color (Carrie-wound Skin Appearance) No Abnormality Assessed -Temperature (Carrie-wound Skin No Abnormality Appearance) (Pt Warm) -Tenderness on Palpation (Carrie-wound Yes Skin Appearance) -Ulcer Cleansing soap -Foul Odor after Cleansing Yes -Anesthetic Used 4% Lidocaine Solution [Edema Assessment] -Lower Limb Edema Present NA WC - Nurse 2 - General Ulcer CM Notes Start: 02/11/18 11:47 Freq: Status: Active Protocol: Activity Type Activity Date Activity User E-Sign Co-Sign Detail Recorded Client Recorded Date Recorded By Document 03/03/18 11:24 MW [id number] 03/03/18 11:33 MW 03/03/18 11:24 Wound Center Nurse 2 [Procedure/Treatment] 1. R abd -Time 11:24 -Correct Patient Yes -Correct Side, Site, Position Yes -Correct Procedure Yes -Procedure Performed Yes -Type of Procedure Debridement -Clinical Debridement Subcutaneous -Post Debridement Size (cm) - Length 0.3 -Post Debridement Size (cm) - Width 3.1 -Post Debridement Size (cm) - Depth 0.6 -Total Square Cm 0.93 -Wound/Ulcer Outcome Not Healed -Ulcer Cleansing Rinsed/ Irrigated with Saline -Foul Odor after Cleansing No -Bioengineered Tissue No -Bleeding Controlled with Pressure -Other tunnel @ 2 - 8. 2cm -Treatment Response Procedure Tolerated Well [See Physician Procedure note for Specifics] Pain Scale: 0-10 Numeric [Pain] -Is Patient Pain Free? Yes Musculoskeletal: No Muscle Wasting Neurological: Cranial nerves II-XII grossly intact Psych/Mental Status: Normal Affect Debridement Note Post-Debridement Measurements/Treatment WC - Nurse 2 - General Ulcer CM Notes Start: 02/11/18 11:47 Freq: Status: Active Protocol: Activity Type Activity Date Activity User E-Sign Co-Sign Detail Recorded Client Recorded Date Recorded By Document 02/11/18 12:28 MW [id number] 02/11/18 12:34 MW Document 02/18/18 12:32 MW [id number] 02/18/18 12:35 MW Document 02/25/18 10:47 MW [id number] 02/25/18 10:50 MW Document 03/03/18 11:24 MW [id number] 03/03/18 11:33 MW 02/11/18 02/18/18 02/25/18 12:28 12:32 10:47 Wound Center Nurse 2 1. R abd -Time 12:28 12:32 10:48 -Correct Patient Yes Yes Yes -Correct Side, Site, Position Yes Yes Yes -Correct Procedure Yes Yes Yes -Procedure Performed Yes Yes Yes -Type of Procedure Debridement Debridement Debridement -Clinical Debridement Subcutaneous Subcutaneous Subcutaneous -Post Debridement Size (cm) - Length 1.0 1.3 0.5 -Post Debridement Size (cm) - Width 13.3 12.0 6.5 -Post Debridement Size (cm) - Depth 1.0 1.0 0.8 -Total Square Cm 13.30 15.60 3.25 -Wound/Ulcer Outcome Not Healed Not Healed Not Healed -Ulcer Cleansing Rinsed/ Rinsed/ Rinsed/ Irrigated with Irrigated with Irrigated with Saline Saline Saline -Foul Odor after Cleansing No No No -Bioengineered Tissue No No No -Bleeding Controlled with Pressure Pressure Pressure -Other TUNNEL @ 2 - 7. tunnel @ 2 - 7. 0CM 2cm, @6 - 6.0cm -Treatment Response Procedure Procedure Procedure Tolerated Well Tolerated Well Tolerated Well Pain Scale: 0-10 Numeric Is Patient Pain Free? Yes Yes Yes 03/03/18 11:24 Wound Center Nurse 2 1. R abd -Time 11:24 -Correct Patient Yes -Correct Side, Site, Position Yes -Correct Procedure Yes -Procedure Performed Yes -Type of Procedure Debridement -Clinical Debridement Subcutaneous -Post Debridement Size (cm) - Length 0.3 -Post Debridement Size (cm) - Width 3.1 -Post Debridement Size (cm) - Depth 0.6 -Total Square Cm 0.93 -Wound/Ulcer Outcome Not Healed -Ulcer Cleansing Rinsed/ Irrigated with Saline -Foul Odor after Cleansing No -Bioengineered Tissue No -Bleeding Controlled with Pressure -Other tunnel @ 2 - 8. 2cm -Treatment Response Procedure Tolerated Well Pain Scale: 0-10 Numeric Is Patient Pain Free? Yes Wound debrided: Abdominal Wound Grade/Stage: Stage III Type of Debridement: Excisional debridement Anesthesia Used: 4% Lidocaine Solution Depth: Down to and including healthy tissue, in the subcutaneous layer Percentage of wound debrided: 100 Instrument Used: 3mm curette Tissue Removed: Slough and devitalized tissue Severity: Fat Layer Exposed Amount of bleeding with debridement: Mild Bleeding Controlled with: Pressure Patient tolerated procedure well Assessment/Plan Active Problems (Last Reviewed 01/31/18 @ 01:49 by Giancarlo Burt MD) Nonhealing surgical wound (Chronic) Assessment: Nonhealing postsurgical abdominal wound. Wound VAC management. Status post partial nephrectomy secondary to renal cell carcinoma. Plan: Wound circumference is improving however significant willie colored drainage noted today. She denies pain or concerns with drainage over the last week. Debridement done as documented above. Procedure was well-tolerated. Continue wound VAC at 150 mmHg. Change every 48 hours. May switch to a snap VAC next week. Due to drainage, will get an abdominal pelvic CAT scan. Increased protein intake/supplements recommended. All her questions were answered and she was advised to call with any questions or concerns. Follow-up in 1 week. This note was generated with [employer] dictation software. It may contain incorrect words, spelling, and punctuation that were not noted in checking the note before signing.
[2018-03-11 10:56] VITALS: BP 158/104; PULSE 101; RESP 18; TEMP 36.2; BMI 49.4
--- NOTE | 2018-03-11 13:08 | PN.PCM_ITS ---
(1) Nonhealing surgical wound Status: Chronic Current Visit: Yes Code(s): T81.89XA - Other complications of procedures, not elsewhere classified, initial encounter (2) Hx of partial nephrectomy Status: Acute Current Visit: No Code(s): Z90.5 - Acquired absence of kidney (3) Renal cell cancer Status: Acute Current Visit: No Code(s): C64.9 - Malignant neoplasm of unspecified kidney, except renal pelvis Type of Wound Chief Complaint: Ulcer to right lower abdomen History of Wound: Ms. Rosenberg is a 37-year-old who presents to the wound center for management of a postsurgical wound. She had partial nephrectomy on 09 December at the [facility] however, appeared to have developed complications with surgical wound dehiscence for which she was subsequently sent at [facility] where she had surgical debridement in January. She had a wound VAC placed after surgery on the 04 of February and now presents here for management of her wound and Vac. She denies fever, chills or change in her bowel habits. Progress of Wound: Improving. - Physical Exam Vital Signs Temp Pulse Resp BP 97.1 F L 101 H 18 158/104 H 03/11/18 10:56 03/11/18 10:56 03/11/18 10:56 03/11/18 10:56 General: Alert, Oriented x3, Cooperative, No apparent distress HEENT: Atraumatic, Normocephalic Oral: Moist Mucosa Neck: Supple Lungs: Normal air movement Abdomen: Soft, Obese Extremities: No cyanosis Skin: Ulcer/ Wound Wound Measurements and Assessment WC - Nurse 1 - General Ulcer Measurement Start: 02/11/18 11:47 Freq: Status: Active Protocol: Activity Type Activity Date Activity User E-Sign Co-Sign Detail Recorded Client Recorded Date Recorded By Document 03/11/18 10:56 DL [id number] 03/11/18 11:05 DL 03/11/18 10:56 Wound Center Nurse 1 [Ulcer Assessment] #2- Right ABD -Current Size (cm) - Length 0.5 -Current Size (cm) - Width 1 -Current Size (cm) - Depth 3.5 -Total Square Cm 0.5 -Photo Taken No -Exudate Amt Small (1-33%) -Exudate Type Serosanguineous -Wound Margin Distinct, Outline Attached -Granulation Amt Small (1-33%) -Granulation Quality [place] -Necrosis Amt None Present (0 %) -Structure Exposed N/A -Texture (Carrie-wound Skin Appearance) Scarring -Moisture (Carrie-wound Skin Appearance No Abnormality ) -Color (Carrie-wound Skin Appearance) No Abnormality -Tenderness on Palpation (Carrie-wound No Skin Appearance) -Ulcer Cleansing Wound Cleanser -Foul Odor after Cleansing No -Anesthetic Used 4% Lidocaine Solution - Nurse 2 - General Ulcer CM Notes Start: 02/11/18 11:47 Freq: Status: Active Protocol: Activity Type Activity Date Activity User E-Sign Co-Sign Detail Recorded Client Recorded Date Recorded By Document 03/11/18 11:21 MW [id number] 03/11/18 11:26 MW 03/11/18 11:21 Wound Center Nurse 2 [Procedure/Treatment] -Time 11:22 -Correct Patient Yes -Correct Side, Site, Position Yes -Correct Procedure Yes -Procedure Performed Yes -Type of Procedure Debridement -Clinical Debridement Subcutaneous -Post Debridement Size (cm) - Length 0.5 -Post Debridement Size (cm) - Width 1.7 -Post Debridement Size (cm) - Depth 4.7 -Total Square Cm 0.85 -Wound/Ulcer Outcome Not Healed -Ulcer Cleansing Rinsed/ Irrigated with Saline -Foul Odor after Cleansing No -Bioengineered Tissue No -Bleeding Controlled with Pressure -Offloading No -Treatment Response Procedure Tolerated Well [See Physician Procedure note for Specifics] Pain Scale: 0-10 Numeric [Pain] -Is Patient Pain Free? Yes Musculoskeletal: No Muscle Wasting Neurological: Cranial nerves II-XII grossly intact Psych/Mental Status: Normal Affect Debridement Note Post-Debridement Measurements/Treatment - Nurse 2 - General Ulcer CM Notes Start: 02/11/18 11:47 Freq: Status: Active Protocol: Activity Type Activity Date Activity User E-Sign Co-Sign Detail Recorded Client Recorded Date Recorded By Document 02/11/18 12:28 MW [id number] 02/11/18 12:34 MW Document 02/18/18 12:32 MW [id number] 02/18/18 12:35 MW Document 02/25/18 10:47 MW [id number] 02/25/18 10:50 MW Document 03/03/18 11:24 MW [id number] 03/03/18 11:33 MW Document 03/11/18 11:21 MW [id number] 03/11/18 11:26 MW 02/11/18 02/18/18 02/25/18 12:28 12:32 10:47 Wound Center Nurse 2 #2- Right ABD -Time 12:28 12:32 10:48 -Correct Patient Yes Yes Yes -Correct Side, Site, Position Yes Yes Yes -Correct Procedure Yes Yes Yes -Procedure Performed Yes Yes Yes -Type of Procedure Debridement Debridement Debridement -Clinical Debridement Subcutaneous Subcutaneous Subcutaneous -Post Debridement Size (cm) - Length 1.0 1.3 0.5 -Post Debridement Size (cm) - Width 13.3 12.0 6.5 -Post Debridement Size (cm) - Depth 1.0 1.0 0.8 -Total Square Cm 13.30 15.60 3.25 -Wound/Ulcer Outcome Not Healed Not Healed Not Healed -Ulcer Cleansing Rinsed/ Rinsed/ Rinsed/ Irrigated with Irrigated with Irrigated with Saline Saline Saline -Foul Odor after Cleansing No No No -Bioengineered Tissue No No No -Bleeding Controlled with Pressure Pressure Pressure -Other TUNNEL @ 2 - 7. tunnel @ 2 - 7. 0CM 2cm, @6 - 6.0cm -Offloading -Treatment Response Procedure Procedure Procedure Tolerated Well Tolerated Well Tolerated Well Pain Scale: 0-10 Numeric Is Patient Pain Free? Yes Yes Yes 03/03/18 03/11/18 11:24 11:21 Wound Center Nurse 2 #2- Right ABD -Time 11:24 11:22 -Correct Patient Yes Yes -Correct Side, Site, Position Yes Yes -Correct Procedure Yes Yes -Procedure Performed Yes Yes -Type of Procedure Debridement Debridement -Clinical Debridement Subcutaneous Subcutaneous -Post Debridement Size (cm) - Length 0.3 0.5 -Post Debridement Size (cm) - Width 3.1 1.7 -Post Debridement Size (cm) - Depth 0.6 4.7 -Total Square Cm 0.93 0.85 -Wound/Ulcer Outcome Not Healed Not Healed -Ulcer Cleansing Rinsed/ Rinsed/ Irrigated with Irrigated with Saline Saline -Foul Odor after Cleansing No No -Bioengineered Tissue No No -Bleeding Controlled with Pressure Pressure -Other tunnel @ 2 - 8. 2cm -Offloading No -Treatment Response Procedure Procedure Tolerated Well Tolerated Well Pain Scale: 0-10 Numeric Is Patient Pain Free? Yes Yes Wound debrided: Abdominal Wound Grade/Stage: Stage II Type of Debridement: Excisional debridement Anesthesia Used: 4% Lidocaine Solution Depth: Down to and including healthy tissue, in the subcutaneous layer Percentage of wound debrided: 100 Instrument Used: 3mm curette Tissue Removed: Slough and devitalized tissue Severity: Fat Layer Exposed Amount of bleeding with debridement: Mild Bleeding Controlled with: Pressure Patient tolerated procedure well Assessment/Plan Active Problems (Last Reviewed 01/31/18 @ 01:49 by Giancarlo Burt MD) Nonhealing surgical wound (Chronic) Assessment: Nonhealing postsurgical abdominal wound. Wound VAC management. St atus post partial nephrectomy secondary to renal cell carcinoma. Plan: Significant improvement in the past week. No willie colored drainage noted today. CAT scan however not done. She also denies pain or discharge. Debridement done as documented above, procedure was well-tolerated. Due to reduction in depth and size, will now switch to a snap VAC. Follow-up on Thursday and for change. Increased protein intake/supplements recommended. All her questions were answered and she was advised to call with any questions or concerns. Follow-up in 2 weeks with me. This note was generated with [employer] dictation software. It may contain incorrect words, spelling, and punctuation that were not noted in checking the note before signing.
== END 2018-03-12 23:59 ==
LOC: WC 10:15
PROVIDERS: Visit Provider Internal Medicine
DX: T81.30XA Disruption of wound, unspecified, initial encounter (principal); Y83.9 Surgical procedure, unspecified as the cause of abnormal reaction of the patient, or of later complication, without mention of misadventure at the time of the procedure; Z90.5 Acquired absence of kidney; Z85.528 Personal history of other malignant neoplasm of kidney; F17.200 Nicotine dependence, unspecified, uncomplicated
CPT/HCPCS: 11042; 97605; 97607; 99213; G0463

== ENCOUNTER 2018-04-01 09:15 | Outpatient (RCR) | payer MEDICAID, SELFPAY ==
[2018-03-13 00:17] VITALS: BP 158/104; PULSE 101; RESP 18; TEMP 36.2
[2018-03-15 11:00] VITALS: BP 164/102; PULSE 90; RESP 16; TEMP 36; BMI 49.4
[2018-03-18 13:55] VITALS: BP 119/60; PULSE 96; RESP 18; TEMP 36.2; BMI 49.4
[2018-03-22 13:28] VITALS: BP 165/100; PULSE 90; RESP 16; TEMP 36.6; BMI 49.4
[2018-03-25 11:27] VITALS: BP 143/97; PULSE 95; RESP 18; TEMP 36.2; BMI 49.4
--- NOTE | 2018-03-25 12:04 | PCM.WC.PN ---
(1) Nonhealing surgical wound Status: Chronic Current Visit: No Code(s): T81.89XA - Other complications of procedures, not elsewhere classified, initial encounter Type of Wound Chief Complaint: Ulcer to right lower abdomen History of Wound: Ms. Rosenberg is a 37-year-old who presents to the wound center for management of a postsurgical wound. She had partial nephrectomy on 09 December at the [facility] however, appeared to have developed complications with surgical wound dehiscence for which she was subsequently sent at [facility] where she had surgical debridement in January. She had a wound VAC placed after surgery on the 04 of February and now presents here for management of her wound and Vac. She denies fever, chills or change in her bowel habits. Progress of Wound: Improving. - Physical Exam Vital Signs Temp Pulse Resp BP 97.1 F L 95 18 143/97 H 03/25/18 11:27 03/25/18 11:27 03/25/18 11:27 03/25/18 11:27 General: Alert, Oriented x3, Cooperative, No apparent distress HEENT: Atraumatic, Normocephalic Oral: Moist Mucosa Lungs: Normal air movement Abdomen: Non Tender, Obese Extremities: No cyanosis Skin: Ulcer/ Wound Wound Measurements and Assessment WC - Nurse 1 - General Ulcer Measurement Start: 03/15/18 17:27 Freq: Status: Active Protocol: Activity Type Activity Date Activity User E-Sign Co-Sign Detail Recorded Client Recorded Date Recorded By Document 03/22/18 13:28 [id number] 03/22/18 13:38 Document 03/25/18 11:27 MI [id number] 03/25/18 11:39 MI 03/22/18 03/25/18 13:28 11:27 Wound Center Nurse 1 [Ulcer Assessment] #2- Right ABD -Current Size (cm) - Length 0.7 0.5 -Current Size (cm) - Width 0.8 1 -Current Size (cm) - Depth 3.4 3.4 -Total Square Cm 0.56 0.5 -Photo Taken No -Tunneling Yes -Tunneling Position (O'clock) 12 11 -Tunneling Distance (cm) 3.4 6.1 -Undermining/Tunneling No -Exudate Amt Small (1-33%) Medium (34-66%) -Exudate Type Serosanguineous Serosanguineous -Wound Margin Distinct, Distinct, Outline Outline Attached Attached -Granulation Amt Large (67-100%) Large (67-100%) -Granulation Quality Red Pale [place] -Slough/Fibrin No -Necrosis Amt None Present (0 %) -Structure Exposed N/A -Texture (Carrie-wound Skin Appearance) Scarring Assessed -Moisture (Carrie-wound Skin Appearance No Abnormality Assessed ) Maceration -Color (Carrie-wound Skin Appearance) No Abnormality Assessed -Temperature (Carrie-wound Skin No Abnormality No Abnormality Appearance) (Pt Warm) (Pt Warm) -Tenderness on Palpation (Carrie-wound No No Skin Appearance) -Ulcer Cleansing Wound Cleanser Wound Cleanser -Foul Odor after Cleansing No No -Anesthetic Used 4% Lidocaine Solution WC - Nurse 2 - General Ulcer CM Notes Start: 03/15/18 17:27 Freq: Status: Active Protocol: Activity Type Activity Date Activity User E-Sign Co-Sign Detail Recorded Client Recorded Date Recorded By Document 03/25/18 12:02 MW [id number] 03/25/18 12:03 MW 03/25/18 12:02 Wound Center Nurse 2 [Procedure/Treatment] -Time 12:02 -Correct Patient Yes -Correct Side, Site, Position Yes -Correct Procedure Yes -Procedure Performed Yes -Type of Procedure Debridement -Clinical Debridement Subcutaneous -Post Debridement Size (cm) - Length 0.3 -Post Debridement Size (cm) - Width 1.1 -Post Debridement Size (cm) - Depth 0.4 -Total Square Cm 0.33 -Wound/Ulcer Outcome Not Healed -Ulcer Cleansing Rinsed/ Irrigated with Saline -Foul Odor after Cleansing No -Bioengineered Tissue No -Bleeding Controlled with Pressure -Offloading No -Treatment Response Procedure Tolerated Well [See Physician Procedure note for Specifics] Pain Scale: 0-10 Numeric [Pain] -Is Patient Pain Free? Yes Musculoskeletal: No Muscle Wasting Neurological: Cranial nerves II-XII grossly intact Psych/Mental Status: Normal Affect Debridement Note Post-Debridement Measurements/Treatment WC - Nurse 2 - General Ulcer CM Notes Start: 03/15/18 17:27 Freq: Status: Active Protocol: Activity Type Activity Date Activity User E-Sign Co-Sign Detail Recorded Client Recorded Date Recorded By Document 03/25/18 12:02 MW [id number] 03/25/18 12:03 MW 03/25/18 12:02 Wound Center Nurse 2 #2- Right ABD -Time 12:02 -Correct Patient Yes -Correct Side, Site, Position Yes -Correct Procedure Yes -Procedure Performed Yes -Type of Procedure Debridement -Clinical Debridement Subcutaneous -Post Debridement Size (cm) - Length 0.3 -Post Debridement Size (cm) - Width 1.1 -Post Debridement Size (cm) - Depth 0.4 -Total Square Cm 0.33 -Wound/Ulcer Outcome Not Healed -Ulcer Cleansing Rinsed/ Irrigated with Saline -Foul Odor after Cleansing No -Bioengineered Tissue No -Bleeding Controlled with Pressure -Offloading No -Treatment Response Procedure Tolerated Well Pain Scale: 0-10 Numeric Is Patient Pain Free? Yes Wound debrided: Abdominal wound Wound Grade/Stage: Stage II Type of Debridement: Excisional debridement Anesthesia Used: 4% Lidocaine Solution Depth: Down to and including healthy tissue, in the subcutaneous layer Percentage of wound debrided: 100 Instrument Used: 3mm curette Tissue Removed: slough and devitalized tissue Severity: Fat Layer Exposed Amount of bleeding with debridement: Mild Bleeding Controlled with: Pressure Patient tolerated procedure well Assessment/Plan Assessment: Nonhealing postsurgical abdominal wound. Wound VAC management. Status post partial nephrectomy secondary to renal cell carcinoma. Plan: Improving. Debridement done as documented above, procedure was well-tolerated. I do not see any furthr indication for a SNAP at this time. Will switch to Fibrocol daily. Increased protein intake/supplements recommended. All her questions were answered and she was advised to call with any questions or concerns. Follow-up in 1 week. This note was generated with [employer] dictation software. It may contain incorrect words, spelling, and punctuation that were not noted in checking the note before signing.
--- NOTE | 2018-03-25 12:08 | PN.PCM_ITS ---
(1) Nonhealing surgical wound Status: Chronic Current Visit: No Code(s): T81.89XA - Other complications of procedures, not elsewhere classified, initial encounter Type of Wound Chief Complaint: Ulcer to right lower abdomen History of Wound: Ms. Rosenberg is a 37-year-old who presents to the wound center for management of a postsurgical wound. She had partial nephrectomy on 09 December at the [facility] however, appeared to have developed complications with surgical wound dehiscence for which she was subsequently sent at [facility] where she had surgical debridement in January. She had a wound VAC placed after surgery on the 04 of February and now presents here for management of her wound and Vac. She denies fever, chills or change in her bowel habits. Progress of Wound: Improving. - Physical Exam Vital Signs Temp Pulse Resp BP 97.1 F L 95 18 143/97 H 03/25/18 11:27 03/25/18 11:27 03/25/18 11:27 03/25/18 11:27 General: Alert, Oriented x3, Cooperative, No apparent distress HEENT: Atraumatic, Normocephalic Oral: Moist Mucosa Lungs: Normal air movement Abdomen: Non Tender, Obese Extremities: No cyanosis Skin: Ulcer/ Wound Wound Measurements and Assessment WC - Nurse 1 - General Ulcer Measurement Start: 03/15/18 17:27 Freq: Status: Active Protocol: Activity Type Activity Date Activity User E-Sign Co-Sign Detail Recorded Client Recorded Date Recorded By Document 03/22/18 13:28 [id number] 03/22/18 13:38 Document 03/25/18 11:27 VT [id number] 03/25/18 11:39 VT 03/22/18 03/25/18 13:28 11:27 Wound Center Nurse 1 [Ulcer Assessment] #2- Right ABD -Current Size (cm) - Length 0.7 0.5 -Current Size (cm) - Width 0.8 1 -Current Size (cm) - Depth 3.4 3.4 -Total Square Cm 0.56 0.5 -Photo Taken No -Tunneling Yes -Tunneling Position (O'clock) 12 11 -Tunneling Distance (cm) 3.4 6.1 -Undermining/Tunneling No -Exudate Amt Small (1-33%) Medium (34-66%) -Exudate Type Serosanguineous Serosanguineous -Wound Margin Distinct, Distinct, Outline Outline Attached Attached -Granulation Amt Large (67-100%) Large (67-100%) -Granulation Quality Red Pale [place] -Slough/Fibrin No -Necrosis Amt None Present (0 %) -Structure Exposed N/A -Texture (Carrie-wound Skin Appearance) Scarring Assessed -Moisture (Carrie-wound Skin Appearance No Abnormality Assessed ) Maceration -Color (Carrie-wound Skin Appearance) No Abnormality Assessed -Temperature (Carrie-wound Skin No Abnormality No Abnormality Appearance) (Pt Warm) (Pt Warm) -Tenderness on Palpation (Carrie-wound No No Skin Appearance) -Ulcer Cleansing Wound Cleanser Wound Cleanser -Foul Odor after Cleansing No No -Anesthetic Used 4% Lidocaine Solution WC - Nurse 2 - General Ulcer CM Notes Start: 03/15/18 17:27 Freq: Status: Active Protocol: Activity Type Activity Date Activity User E-Sign Co-Sign Detail Recorded Client Recorded Date Recorded By Document 03/25/18 12:02 MW [id number] 03/25/18 12:03 MW 03/25/18 12:02 Wound Center Nurse 2 [Procedure/Treatment] -Time 12:02 -Correct Patient Yes -Correct Side, Site, Position Yes -Correct Procedure Yes -Procedure Performed Yes -Type of Procedure Debridement -Clinical Debridement Subcutaneous -Post Debridement Size (cm) - Length 0.3 -Post Debridement Size (cm) - Width 1.1 -Post Debridement Size (cm) - Depth 0.4 -Total Square Cm 0.33 -Wound/Ulcer Outcome Not Healed -Ulcer Cleansing Rinsed/ Irrigated with Saline -Foul Odor after Cleansing No -Bioengineered Tissue No -Bleeding Controlled with Pressure -Offloading No -Treatment Response Procedure Tolerated Well [See Physician Procedure note for Specifics] Pain Scale: 0-10 Numeric [Pain] -Is Patient Pain Free? Yes Musculoskeletal: No Muscle Wasting Neurological: Cranial nerves II-XII grossly intact Psych/Mental Status: Normal Affect Debridement Note Post-Debridement Measurements/Treatment WC - Nurse 2 - General Ulcer CM Notes Start: 03/15/18 17:27 Freq: Status: Active Protocol: Activity Type Activity Date Activity User E-Sign Co-Sign Detail Recorded Client Recorded Date Recorded By Document 03/25/18 12:02 MW [id number] 03/25/18 12:03 MW 03/25/18 12:02 Wound Center Nurse 2 #2- Right ABD -Time 12:02 -Correct Patient Yes -Correct Side, Site, Position Yes -Correct Procedure Yes -Procedure Performed Yes -Type of Procedure Debridement -Clinical Debridement Subcutaneous -Post Debridement Size (cm) - Length 0.3 -Post Debridement Size (cm) - Width 1.1 -Post Debridement Size (cm) - Depth 0.4 -Total Square Cm 0.33 -Wound/Ulcer Outcome Not Healed -Ulcer Cleansing Rinsed/ Irrigated with Saline -Foul Odor after Cleansing No -Bioengineered Tissue No -Bleeding Controlled with Pressure -Offloading No -Treatment Response Procedure Tolerated Well Pain Scale: 0-10 Numeric Is Patient Pain Free? Yes Wound debrided: Abdominal wound Wound Grade/Stage: Stage II Type of Debridement: Excisional debridement Anesthesia Used: 4% Lidocaine Solution Depth: Down to and including healthy tissue, in the subcutaneous layer Percentage of wound debrided: 100 Instrument Used: 3mm curette Tissue Removed: slough and devitalized tissue Severity: Fat Layer Exposed Amount of bleeding with debridement: Mild Bleeding Controlled with: Pressure Patient tolerated procedure well Assessment/Plan Assessment: Nonhealing postsurgical abdominal wound. Wound VAC management. Status post partial nephrectomy secondary to renal cell carcinoma. Plan: Improving. Debridement done as documented above, procedure was well- tolerated. I do not see any furthr indication for a SNAP at this time. Will switch to Fibrocol daily. Increased protein intake/supplements recommended. All her questions were answered and she was advised to call with any questions or concerns. Follow-up in 1 week. This note was generated with [employer] dictation software. It may contain incorrect words, spelling, and punctuation that were not noted in checking the note before signing.
[2018-04-01 09:21] VITALS: BP 167/99; PULSE 77; RESP 16; TEMP 36.2; BMI 49.4
--- NOTE | 2018-04-01 11:00 | PCM.WC.PN ---
(1) Nonhealing surgical wound Status: Chronic Current Visit: Yes Code(s): T81.89XA - Other complications of procedures, not elsewhere classified, initial encounter Type of Wound Chief Complaint: Ulcer to right lower abdomen History of Wound: Ms. Rosenberg is a 37-year-old who presents to the wound center for management of a postsurgical wound. She had partial nephrectomy on 09 December at the [facility] however, appeared to have developed complications with surgical wound dehiscence for which she was subsequently sent at [facility] where she had surgical debridement in January. She had a wound VAC placed after surgery on the 04 of February and now presents here for management of her wound and Vac. She denies fever, chills or change in her bowel habits. Progress of Wound: Stable. No signiifcant drainage over the past week. - Physical Exam Vital Signs Temp Pulse Resp BP 97.1 F L 77 16 167/99 H 04/01/18 09:21 04/01/18 09:21 04/01/18 09:21 04/01/18 09:21 General: Alert, Oriented x3, Cooperative, No apparent distress HEENT: Atraumatic, Normocephalic Oral: Moist Mucosa Neck: Supple Lungs: Normal air movement Abdomen: Soft, Non Tender, Obese Extremities: No cyanosis Skin: Ulcer/ Wound Wound Measurements and Assessment WC - Nurse 1 - General Ulcer Measurement Start: 03/15/18 17:27 Freq: Status: Active Protocol: Activity Type Activity Date Activity User E-Sign Co-Sign Detail Recorded Client Recorded Date Recorded By Document 04/01/18 09:21 [id number] 04/01/18 09:23 04/01/18 09:21 Wound Center Nurse 1 [Ulcer Assessment] #2- Right ABD -Combined with other wound No -Current Size (cm) - Length 2 -Current Size (cm) - Width 0.1 -Current Size (cm) - Depth 0.1 -Total Square Cm 0.2 -Tunneling Yes -Tunneling Position (O'clock) 9 -Tunneling Distance (cm) 4.8 -Undermining/Tunneling No -Circular Undermining No -Exudate Amt Medium (34-66%) -Exudate Type Yellow/Green -Wound Margin Distinct, Outline Attached -Granulation Amt None Present (0 %) -Granulation Quality N/A -Slough/Fibrin Yes -Necrosis Amt None Present (0 %) -Necrotic Tissue Type Adherent Slough -Structure Exposed None/Limited to Skin Breakdown -Texture (Carrie-wound Skin Appearance) Scarring -Moisture (Carrie-wound Skin Appearance No Abnormality ) Assessed -Color (Carrie-wound Skin Appearance) No Abnormality Assessed -Temperature (Carrie-wound Skin No Abnormality Appearance) (Pt Warm) -Tenderness on Palpation (Carrie-wound No Skin Appearance) -Ulcer Cleansing Rinsed/ Irrigated with Saline -Foul Odor after Cleansing No -Anesthetic Used 5% Lidocaine Gel [Edema Assessment] -Lower Limb Edema Present NA WC - Nurse 2 - General Ulcer CM Notes Start: 03/15/18 17:27 Freq: Status: Active Protocol: Activity Type Activity Date Activity User E-Sign Co-Sign Detail Recorded Client Recorded Date Recorded By Document 04/01/18 09:41 MW [id number] 04/01/18 09:48 MW 04/01/18 09:41 Wound Center Nurse 2 [Procedure/Treatment] #2- Right ABD -Time 09:43 -Correct Patient Yes -Correct Side, Site, Position Yes -Correct Procedure Yes -Procedure Performed Yes -Type of Procedure Debridement -Clinical Debridement Subcutaneous -Post Debridement Size (cm) - Length 0.2 -Post Debridement Size (cm) - Width 1.0 -Post Debridement Size (cm) - Depth 0.4 -Total Square Cm 0.20 -Wound/Ulcer Outcome Not Healed -Ulcer Cleansing Rinsed/ Irrigated with Saline -Foul Odor after Cleansing No -Bioengineered Tissue No -Bleeding Controlled with Pressure -Offloading No -Treatment Response Procedure Tolerated Well [See Physician Procedure note for Specifics] Pain Scale: 0-10 Numeric [Pain] -Is Patient Pain Free? Yes Musculoskeletal: No Muscle Wasting Neurological: Cranial nerves II-XII grossly intact Psych/Mental Status: Normal Affect Debridement Note Post-Debridement Measurements/Treatment WC - Nurse 2 - General Ulcer CM Notes Start: 03/15/18 17:27 Freq: Status: Active Protocol: Activity Type Activity Date Activity User E-Sign Co-Sign Detail Recorded Client Recorded Date Recorded By Document 03/25/18 12:02 MW [id number] 03/25/18 12:03 MW Document 04/01/18 09:41 MW [id number] 04/01/18 09:48 MW 03/25/18 04/01/18 12:02 09:41 Wound Center Nurse 2 #2- Right ABD -Time 12:02 09:43 -Correct Patient Yes Yes -Correct Side, Site, Position Yes Yes -Correct Procedure Yes Yes -Procedure Performed Yes Yes -Type of Procedure Debridement Debridement -Clinical Debridement Subcutaneous Subcutaneous -Post Debridement Size (cm) - Length 0.3 0.2 -Post Debridement Size (cm) - Width 1.1 1.0 -Post Debridement Size (cm) - Depth 0.4 0.4 -Total Square Cm 0.33 0.20 -Wound/Ulcer Outcome Not Healed Not Healed -Ulcer Cleansing Rinsed/ Rinsed/ Irrigated with Irrigated with Saline Saline -Foul Odor after Cleansing No No -Bioengineered Tissue No No -Bleeding Controlled with Pressure Pressure -Offloading No No -Treatment Response Procedure Procedure Tolerated Well Tolerated Well Pain Scale: 0-10 Numeric Is Patient Pain Free? Yes Yes Wound debrided: Abdominal Wound Grade/Stage: Stage II Type of Debridement: Excisional debridement Anesthesia Used: 4% Lidocaine Solution Depth: Down to and including healthy tissue, in the subcutaneous layer Percentage of wound debrided: 100 Instrument Used: 3mm curette Tissue Removed: Biofil and devitalized tissue Severity: Fat Layer Exposed Amount of bleeding with debridement: Mild Bleeding Controlled with: Pressure Patient tolerated procedure well Assessment/Plan Active Problems (Last Reviewed 01/31/18 @ 01:49 by Giancarlo Burt MD) Nonhealing surgical wound (Chronic) Assessment: Nonhealing postsurgical abdominal wound. Wound VAC management. Status post partial nephrectomy secondary to renal cell carcinoma. Plan: Stable. No significant concerns from patient at this time. With a probe, it appears deep however, i belive this is just in the subcutatneous fat/ ??? retroperitoneal space. No significant drainage or discharge from the wound site per her sister who does / helps with her dressing. Debridement done as documeneted above, procedure was well tolerated. Will switch to aquacel rope. Change daily. Also advised her to follow up with her General surgeon Dr. Alfonso. If no significant change within the week, will conider restarting the Snap. Increased protein intake recommended. All her questions were answered and she was advised to call with any questions or concerns. Follow-up in 1 week. This note was generated with [employer] software. It may contain incorrect words, spelling, and punctuation that were not noted in checking the note before signing.
--- NOTE | 2018-04-01 11:07 | PN.PCM_ITS ---
(1) Nonhealing surgical wound Status: Chronic Current Visit: Yes Code(s): T81.89XA - Other complications of procedures, not elsewhere classified, initial encounter Type of Wound Chief Complaint: Ulcer to right lower abdomen History of Wound: Ms. Rosenberg is a 37-year-old who presents to the wound center for management of a postsurgical wound. She had partial nephrectomy on 09 December at the [facility] however, appeared to have developed complications with surgical wound dehiscence for which she was subsequently sent at [facility] where she had surgical debridement in January. She had a wound VAC placed after surgery on the 04 of February and now presents here for management of her wound and Vac. She denies fever, chills or change in her bowel habits. Progress of Wound: Stable. No signiifcant drainage over the past week. - Physical Exam Vital Signs Temp Pulse Resp BP 97.1 F L 77 16 167/99 H 04/01/18 09:21 04/01/18 09:21 04/01/18 09:21 04/01/18 09:21 General: Alert, Oriented x3, Cooperative, No apparent distress HEENT: Atraumatic, Normocephalic Oral: Moist Mucosa Neck: Supple Lungs: Normal air movement Abdomen: Soft, Non Tender, Obese Extremities: No cyanosis Skin: Ulcer/ Wound Wound Measurements and Assessment WC - Nurse 1 - General Ulcer Measurement Start: 03/15/18 17:27 Freq: Status: Active Protocol: Activity Type Activity Date Activity User E-Sign Co-Sign Detail Recorded Client Recorded Date Recorded By Document 04/01/18 09:21 [id number] 04/01/18 09:23 04/01/18 09:21 Wound Center Nurse 1 [Ulcer Assessment] #2- Right ABD -Combined with other wound No -Current Size (cm) - Length 2 -Current Size (cm) - Width 0.1 -Current Size (cm) - Depth 0.1 -Total Square Cm 0.2 -Tunneling Yes -Tunneling Position (O'clock) 9 -Tunneling Distance (cm) 4.8 -Undermining/Tunneling No -Circular Undermining No -Exudate Amt Medium (34-66%) -Exudate Type Yellow/Green -Wound Margin Distinct, Outline Attached -Granulation Amt None Present (0 %) -Granulation Quality N/A -Slough/Fibrin Yes -Necrosis Amt None Present (0 %) -Necrotic Tissue Type Adherent Slough -Structure Exposed None/Limited to Skin Breakdown -Texture (Carrie-wound Skin Appearance) Scarring -Moisture (Carrie-wound Skin Appearance No Abnormality ) Assessed -Color (Carrie-wound Skin Appearance) No Abnormality Assessed -Temperature (Carrie-wound Skin No Abnormality Appearance) (Pt Warm) -Tenderness on Palpation (Carrie-wound No Skin Appearance) -Ulcer Cleansing Rinsed/ Irrigated with Saline -Foul Odor after Cleansing No -Anesthetic Used 5% Lidocaine Gel [Edema Assessment] -Lower Limb Edema Present NA WC - Nurse 2 - General Ulcer CM Notes Start: 03/15/18 17:27 Freq: Status: Active Protocol: Activity Type Activity Date Activity User E-Sign Co-Sign Detail Recorded Client Recorded Date Recorded By Document 04/01/18 09:41 MW [id number] 04/01/18 09:48 MW 04/01/18 09:41 Wound Center Nurse 2 [Procedure/Treatment] #2- Right ABD -Time 09:43 -Correct Patient Yes -Correct Side, Site, Position Yes -Correct Procedure Yes -Procedure Performed Yes -Type of Procedure Debridement -Clinical Debridement Subcutaneous -Post Debridement Size (cm) - Length 0.2 -Post Debridement Size (cm) - Width 1.0 -Post Debridement Size (cm) - Depth 0.4 -Total Square Cm 0.20 -Wound/Ulcer Outcome Not Healed -Ulcer Cleansing Rinsed/ Irrigated with Saline -Foul Odor after Cleansing No -Bioengineered Tissue No -Bleeding Controlled with Pressure -Offloading No -Treatment Response Procedure Tolerated Well [See Physician Procedure note for Specifics] Pain Scale: 0-10 Numeric [Pain] -Is Patient Pain Free? Yes Musculoskeletal: No Muscle Wasting Neurological: Cranial nerves II-XII grossly intact Psych/Mental Status: Normal Affect Debridement Note Post-Debridement Measurements/Treatment WC - Nurse 2 - General Ulcer CM Notes Start: 03/15/18 17:27 Freq: Status: Active Protocol: Activity Type Activity Date Activity User E-Sign Co-Sign Detail Recorded Client Recorded Date Recorded By Document 03/25/18 12:02 MW [id number] 03/25/18 12:03 MW Document 04/01/18 09:41 MW [id number] 04/01/18 09:48 MW 03/25/18 04/01/18 12:02 09:41 Wound Center Nurse 2 #2- Right ABD -Time 12:02 09:43 -Correct Patient Yes Yes -Correct Side, Site, Position Yes Yes -Correct Procedure Yes Yes -Procedure Performed Yes Yes -Type of Procedure Debridement Debridement -Clinical Debridement Subcutaneous Subcutaneous -Post Debridement Size (cm) - Length 0.3 0.2 -Post Debridement Size (cm) - Width 1.1 1.0 -Post Debridement Size (cm) - Depth 0.4 0.4 -Total Square Cm 0.33 0.20 -Wound/Ulcer Outcome Not Healed Not Healed -Ulcer Cleansing Rinsed/ Rinsed/ Irrigated with Irrigated with Saline Saline -Foul Odor after Cleansing No No -Bioengineered Tissue No No -Bleeding Controlled with Pressure Pressure -Offloading No No -Treatment Response Procedure Procedure Tolerated Well Tolerated Well Pain Scale: 0-10 Numeric Is Patient Pain Free? Yes Yes Wound debrided: Abdominal Wound Grade/Stage: Stage II Type of Debridement: Excisional debridement Anesthesia Used: 4% Lidocaine Solution Depth: Down to and including healthy tissue, in the subcutaneous layer Percentage of wound debrided: 100 Instrument Used: 3mm curette Tissue Removed: Biofil and devitalized tissue Severity: Fat Layer Exposed Amount of bleeding with debridement: Mild Bleeding Controlled with: Pressure Patient tolerated procedure well Assessment/Plan Active Problems (Last Reviewed 01/31/18 @ 01:49 by Giancarlo Burt MD) Nonhealing surgical wound (Chronic) Assessment: Nonhealing postsurgical abdominal wound. Wound VAC management. Status post partial nephrectomy secondary to renal cell carcinoma. Plan: Stable. No significant concerns from patient at this time. With a probe, it appears deep however, i belive this is just in the subcutatneous fat/ ??? retroperitoneal space. No significant drainage or discharge from the wound site per her sister who does / helps with her dressing. Debridement done as documeneted above, procedure was well tolerated. Will switch to aquacel rope. Change daily. Also advised her to follow up with her General surgeon Dr. Alfonso. If no significant change within the week, will conider restarting the Snap. Increased protein intake recommended. All her questions were answered and she was advised to call with any questions or concerns. Follow-up in 1 week. This note was generated with [employer] software. It may contain incorrect words, spelling, and punctuation that were not noted in checking the note before signing.
--- OUTSIDE RECORDS SUMMARY | 2018-05-08 09:12 | XMS RPT_ITS ---
:1980 Author Organization OHIP Support Name Relationship Address Phone D Unavailable Unavailable Unavailable SCHNITZIUS, DAKOTA Unavailable [address] + [place] [address] D Unavailable Unavailable Unavailable SCHNITZIUS, DAKOTA Unavailable [address] + [place] [address] D Unavailable Unavailable Unavailable SCHNITZIUS, DAKOTA Unavailable [address] + [place] [address] D Unavailable Unavailable Unavailable SCHNITZIUS, DAKOTA Unavailable [address] + [place] [address] D Unavailable Unavailable Unavailable SCHNITZIUS, DAKOTA Unavailable [address] + [place] [address] D Unavailable Unavailable Unavailable SCHNITZIUS, DAKOTA Unavailable [address] + [place] [address] ANNE SILVESTRE Unavailable Unavailable + D Unavailable Unavailable Unavailable SCHNITZIUS, DAKOTA Unavailable [address] + [place] [address] SCHNITZIUS, DAKOTA Unavailable [address] + [place] [address] D Unavailable Unavailable Unavailable SCHNITZIUS, DAKOTA Unavailable [address] + [place] [address] D Unavailable Unavailable Unavailable SCHNITZIUS, DAKOTA Unavailable [address] + [place] [address] SCHNITZIUS, DAKOTA Unavailable [address] + [place] [address] SCHNITZIUS, DAKOTA Unavailable [address] + [place] [address] UE Unavailable Unavailable Unavailable SCHNITZIUS, DAKOTA Unavailable [address] + [place] [address] UE Unavailable Unavailable Unavailable SCHNITZIUS, DAKOTA Unavailable [address] + [place] [address] UE Unavailable Unavailable Unavailable DAKOTA CHIU Unavailable [address] + [place] [address] UE Unavailable Unavailable Unavailable DAKOTA CHIU Unavailable [address] + [place] [address] UE Unavailable Unavailable Unavailable DAKOTA CHIU Unavailable [address] + [place] [address] UE Unavailable Unavailable Unavailable DAKOTA CHIU Unavailable [address] + [place] [address] UE Unavailable Unavailable Unavailable DAKOTA CHIU Unavailable [address] + [place] [address] UE Unavailable Unavailable Unavailable DAKOTA CHIU Unavailable [address] + [place] [address] UE Unavailable Unavailable Unavailable DAKOTA CHIU Unavailable [address] + [place] [address] DAKOTA CHIU Unavailable [address] + [place] [address] CABLE, ANNE Unavailable Unavailable + CABLE, ANNE Unavailable Unavailable + DAKOTA CHIU Unavailable Unavailable + UE Unavailable Unavailable Unavailable DAKOTA CHIU Unavailable Unavailable + UE Unavailable Unavailable Unavailable CABLE, NANE Unavailable Unavailable + Care Team Providers Name Role Phone Mark Bassett Attending Unavailable Primay Care Physicia, No Referring Unavailable Primay Care Physicia, No Primary Care Unavailable Alexis Sun Attending Unavailable Alexis Sun Referring Unavailable Mark Bassett Attending Unavailable Primay Care Physicia, No Referring Unavailable Primay Care Physicia, No Primary Care Unavailable Mark Bassett Consulting Unavailable FRANCES CHRISTY Primary Care Unavailable Giancarlo Burt Admitting Unavailable Valentino Hernandez Attending Unavailable Briana Ricks Consulting Unavailable Opal, Blaine Consulting Unavailable Alfonso, Barbi Consulting Unavailable Agyepong, Giancarlo Admitting Unavailable Agyepong, Giancarlo Attending Unavailable FRANCES CHRISTY Primary Care Unavailable Agyepong, Giancarlo Consulting Unavailable Agyepong, Giancarlo Admitting Unavailable Kotsonis, Valentino F Attending Unavailable FRANCES CHRISTY Primary Care Unavailable Kotsonis, Valentino F Consulting Unavailable Agyepong, Giancarlo Admitting Unavailable Kotsonis, Valentino F Attending Unavailable FRANCES CHRISTY Primary Care Unavailable Rambo, Briana Consulting Unavailable Opal, Blaine Consulting Unavailable Kotsonis, Valentino F Consulting Unavailable Agyepong, Giancarlo Admitting Unavailable Kotsonis, Valentino F Attending Unavailable FRANCES CHRISTY Primary Care Unavailable Rabmo, Briana Consulting Unavailable Opal, Blaine Consulting Unavailable Kotsonis, Valentino F Consulting Unavailable Agyepong, Giancarlo Admitting Unavailable Kotsonis, Valentino F Attending Unavailable FRANCES CHRISTY Primary Care Unavailable Rambo, Briana Consulting Unavailable Opal, Blaine Consulting Unavailable Alfonso, Barbi Consulting Unavailable Kotsonis, Valentino F Consulting Unavailable Agyepong, Giancarlo Admitting Unavailable Kotsonis, Valentino F Attending Unavailable FRANCES CHRISTY Primary Care Unavailable Rambo, Briana Consulting Unavailable Opal, Blaine Consulting Unavailable Alfonso, Barbi Consulting Unavailable Kotsonis, Valentino F Consulting Unavailable Rambo, Briana Attending Unavailable FRANCES CHRISTY Primary Care Unavailable FRANCES CHRISTY Primary Care Unavailable Darwin Galvez Attending Unavailable Oleghe, Efewongbe Attending Unavailable FRANCES CHRISTY Primary Care Unavailable Rambo, Briana Attending Unavailable FRANCES CHRISTY Primary Care Unavailable Oleghe, Efewongbe Attending Unavailable Oleghe, Efewongbe Referring Unavailable Oleghe, Efewongbe Attending Unavailable Oleghe, Efewongbe Referring Unavailable Oleghe, Efewongbe Attending Unavailable Oleghe, Efewongbe Referring Unavailable Oleghe, Efewongbe Attending Unavailable Oleghe, Efewongbe Referring Unavailable FRANCES CHRISTY Primary Care Unavailable Oleghe, Efewongbe Attending Unavailable Oleghe, Efewongbe Referring Unavailable Oleghe, Efewongbe Attending Unavailable FRANCES CHRISTY Primary Care Unavailable HEATHER TORRES Attending Unavailable MARK BASSETT Referring Unavailable HEATHER TORRES Referring Unavailable HEATHER TORRES Referring Unavailable PROSPER MAY ([facility]) Attending Unavailable HEATHER TORRES Referring Unavailable HEATHER TORRES Referring Unavailable TAMERA MENENDEZ Attending Unavailable HEATHER TORRES Admitting Unavailable HEATHER TORRES Attending Unavailable HEATHER TORRES Admitting Unavailable HEATHER TORRES Attending Unavailable HEATHER TORRES Attending Unavailable HEATHER TORRES Referring Unavailable HEATHER TORRES Admitting Unavailable HEATHER TORRES Attending Unavailable MELANIE CORDON Attending Unavailable Horn, Bertha L Primary Care Unavailable Hudson, Kristen A Admitting Unavailable [place], Kristen A Attending Unavailable Horn, Bertha L Primary Care Unavailable Sokari, Telemate Admitting Unavailable Sokari, Telemate Attending Unavailable PatDomenic W Attending Unavailable Horn, Bertha L Primary Care Unavailable Pat, Domenic Pop Attending Unavailable Horn, Bertha L Primary Care Unavailable PatDomenic montez Admitting Unavailable Pat, Domenic Pop Attending Unavailable Horn, Bertha L Primary Care Unavailable Pat, Domenic W Admitting Unavailable Pat, Domenic Pop Attending Unavailable Horn, Bertha L Primary Care Unavailable Pat, Domenic Pop Attending Unavailable Horn, Bertha L Primary Care Unavailable Pat, Domenic Pop Admitting Unavailable Pat, Domenic Pop Attending Unavailable Horn, Bertha L Primary Care Unavailable Pat, Domenic W Attending Unavailable Horn, Bertha L Primary Care Unavailable Horn, Bertha L Primary Care Unavailable Ivanauskas, Saulius Admitting Unavailable Ivjosianeas, Saulius Attending Unavailable Noel Urbano Admitting Unavailable NewbillNoel Attending Unavailable Horn, Bertha L Primary Care Unavailable Rambo, Briana I Admitting Unavailable Rambo, Briana I Attending Unavailable Horn, Bertha L Primary Care Unavailable Ponsky, Dr. Rambo Qiu Admitting Unavailable Ponsky, Dr. Rambo Qiu Attending Unavailable DOMENIC PAT Referring Unavailable Ponsky, Dr. Rambo Qiu Attending Unavailable PATDOMENIC Referring Unavailable ROBKRISSY, MOLDED GOODS OPERATOR-C AYANA E Admitting Unavailable ROBUCK, MOLDED GOODS OPERATOR-C AYANA Guzmán Attending Unavailable ROBKRISSY, MOLDED GOODS OPERATOR-C AYANA E Primary Care Unavailable ROBKRISSY, MOLDED GOODS OPERATOR-C AYANA E Primary Care Unavailable Girma, Azar Admitting Unavailable Girma, Azar Attending Unavailable ROBUCK, MOLDED GOODS OPERATOR-C AYANA E Primary Care Unavailable Hajdari, Astrit H Admitting Unavailable Hajdari, Astrit H Attending Unavailable SUMEET CONCEPCION Primary Care Unavailable Diaz, Prosper F Admitting Unavailable Diaz, Prosper F Attending Unavailable Roderick Tulio, Beeieman Admitting Unavailable Abdjames Antunez, Marcelleman Attending Unavailable Roderick Antunez, Marcelleman Referring Unavailable SUMEET CONCEPCION Primary Care Unavailable PROBLEMS PROBLEMS DATE TYPE CONDITION / CODE ATTENDING STATUS SOURCE 03/23/2018 Unknown T81.89XA - Other [place]leghe, Active [place] complications of [facility] procedures, not Hospital elsewhere Repository classified, initial encounter / T81.89XA(ICD-10) 01/23/2018 Active Unknown / BRIAN, Active [place] UNK(Unknown) [facility] [place] Repository 06/28/2015 Active Type 2 diabetes CORDON, Active [place] mellitus with [facility]IE [facility] Clinic Other hyperglycemia / [place] E11.65(ICD-10) Repository 01/23/2018 Active Cutaneous abscess of CORDON, Active [place] abdominal wall / EMLANIE D Clinic Other L02.211(ICD-10) [place] Repository 01/23/2018 Active Essential (primary) CORDON, Active [place] hypertension / M[facility] D [facility] Other I10(ICD-10) [place] Repository 12/28/2017 Active Malignant neoplasm BRIAN, Active [place] of left kidney, [facility] except renal pelvis [place] / C64.2(ICD-10) Repository 12/09/2017 Active Other acute BRIAN, Active [place] postprocedural pain [facility] / G89.18(ICD-10) [place] Repository 12/09/2017 Active 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 Kendall [facility] (discharge) disorders of kidney [facility] and ureter / Repository N28.89(ICD-10) PROCEDURES PROCEDURES No Procedure Records FoundRESULTS RESULTS RENAL PANEL Collected: 03/16/2018 Status: F Source: [facility] 12:25 PM [facility] REPOSITORY TYPE CODE TESTS RESULT OUT OF RANGE REFERENCE UNITS LAB 87964155(L 3.4-5.0 gm/dL OINC) Low Albumin Lvl 3.2 LAB 97809922(L 8.6-10.3 mg/dL OINC) Low Calcium Lvl 8.4 LAB 19899521(L 21.0-32.0 mEq/L OINC) CO2 Normal 27.0 LAB [id number](L 98-107 mEq/L OINC) Chloride Normal 107 LAB 1125469(LO 0.5-1.1 mg/dL INC) Normal Creatinine 0.8 LAB 18561194(L 70-99 mg/dL OINC) High Glucose Lvl 250 LAB 11221713(L 2.5-4.9 mg/dL OINC) Normal Phosphorus 2.6 LAB [id number](L 6-23 mg/dL OINC) BUN Normal 12 LAB [id number](L 136-145 mEq/L OINC) Sodium Normal Lvl 136 LAB 47167547(L 3.5-5.3 mEq/L OINC) Normal Potassium Lvl 4.6 LAB 56699766(L 5.4-30.0 ratio OINC) Normal BUN/Creat Ratio 15.0 LAB [id number](L 10-20 mEq/L OINC) Low AGAP 7 Performed By: #### [id number] #### [facility] [employer] [facility] [place] [address] EGFR Collected: 03/16/2018 Status: F Source: FAITH 12:25 PM [facility] REPOSITORY Order Comment: Order added by Discern Expert. TYPE CODE TESTS RESULT OUT OF RANGE REFERENCE UNITS LAB [id number](LO mL/min/1.73 INC) m2 Normal eGFR >60 LAB [id number](LO mL/min/1.73 INC) m2 Normal eGFR AA >60 Performed By: #### [id number] #### [facility]RIS [employer] [address] [place] [address] RENAL PANEL Collected: 02/22/2018 Status: F Source: FAITH 1:00 PM [facility] REPOSITORY TYPE CODE TESTS RESULT OUT OF RANGE REFERENCE UNITS LAB [id number](L 10-20 mEq/L OINC) Low AGAP 7 LAB 98094560(L 3.4-5.0 gm/dL OINC) Low Albumin Lvl 2.8 LAB 41019400(L 8.6-10.3 mg/dL OINC) Calcium Normal Lvl 8.6 LAB [id number](L 21.0-32.0 mEq/L OINC) CO2 Normal 28.0 LAB 23312794(L 98-107 mEq/L OINC) Chloride Normal 104 LAB 4585703(LO 0.5-1.1 mg/dL INC) High Creatinine 1.2 LAB [id number](L 70-99 mg/dL OINC) High Glucose Lvl 226 LAB 19672063(L 2.5-4.9 mg/dL OINC) Normal Phosphorus 2.9 LAB 20135448(L 6-23 mg/dL OINC) BUN Normal 15 LAB [id number](L 136-145 mEq/L OINC) Low Sodium Lvl 135 LAB 47599328(L 3.5-5.3 mEq/L OINC) Normal Potassium Lvl 4.2 LAB 04249773(L 5.4-30.0 ratio OINC) Normal BUN/Creat Ratio 12.5 Performed By: #### [id number] #### [facility] [employer] [address] [place] [address] EGFR Collected: 02/22/2018 Status: F Source: FAITH 1:00 [facility] REPOSITORY Order Comment: Order added by Discern Expert. TYPE CODE TESTS RESULT OUT OF RANGE REFERENCE UNITS LAB [id number](LO mL/min/1.73 INC) m2 Normal eGFR 48 LAB [id number](LO mL/min/1.73 INC) m2 Normal eGFR AA 59 Performed By: #### [id number] #### [facility]RIS [employer] [address] [place] [address] CODING SUMMARY. Observed: 02/19/2018 Status: F Source: [facility] 3:02 PM [facility] REPOSITORY CODING DATE: 02/19/2018 FINAL [facility] STATUS: Home (Routine DC) PAYOR: Medicaid EA DESCRIPTION 0495 MINOR CHEMOTHERAPY DRUGS 0490 INCIDENTAL TO MEDICAL, SIGNIFICANT PROCEDURE OR THERAPY VISIT 0496 MINOR PHARMACOTHERAPY 0390 LEVEL I PATHOLOGY 0134 DIAGNOSTIC UPPER GI ENDOSCOPY OR INTUBATION 0380 ANESTHESIA ADMIT DX: REASON FOR VISIT DX: R11.2 Nausea with vomiting, unspecified FINAL DX: PRINCIPAL: K29.50 Unspecified chronic gastritis without bleeding SECONDARY: R11.2 Nausea with vomiting, unspecified E66.01 Morbid (severe) obesity due to excess calories E11.9 Type 2 diabetes mellitus without complications F31.9 Bipolar disorder, unspecified F41.0 Panic disorder [episodic paroxysmal anxiety] F17.210 Nicotine dependence, cigarettes, uncomplicated Z79.84 senior living (current) use of oral hypoglycemic drugs PYMT PROC EAPG STAT DESCRIPTION DOCTOR NAME DATE [id number] Roderick Antunez MD, Emilee 02/17/2018 phagogastroduodenoscopy, flexible, transoral; with biopsy, single or multiple 87473 Anesthesia for upper [facility] Winston ROJO 02/17/2018 gastrointestinal endoscopic procedures, endoscope introduced proximal to duodenum; not otherwise specified NOTE: The code number assigned matches the documented diagnosis and / or procedure in the patient's chart. However, the narrative phrase printed from the coding software may appear abbreviated, or result in slightly different terminology. Revised Coded By: Effie Magallanes Revised Date Saved: 02/19/2018 03:02 pm WOUND CTR HISTORY Observed: 02/17/2018 Status: F Source: [facility] 10:05 AM [facility] [place] [facility] [address] [place] [id number] [facility] History AND Physical 02/11/18 1317 MR#: [id number] Acct: [id number] Name: BLOSSOMZINATESS J Rep #: [id number] : 1980 37 From: Alexis Sun MD PCP: OUT OF TOWN DOCTOR Status: REG RCR Y Location: (1) Nonhealing surgical wound Status: Acute Code(s): T81.89XA - Other complications of procedures, not elsewhere classified, initial encounter (2) Hx of partial nephrectomy Status: Acute Code(s): Z90.5 - Acquired absence of kidney (3) Renal cell cancer Status: Acute Code(s): C64.9 - Malignant neoplasm of unspecified kidney, except renal pelvis History of Present Illness Date of Service: 02/11/18 Chief Complaint: Ulcer to right lower abdomen History of Wound: Ms. Hall is a 37-year-old who presents to the wound center for management of a postsurgical wound. She had partial nephrectomy on 09 December at the [facility] however, appeared to have developed complications with surgical wound dehiscence for which she was subsequently sent at [facility] where she had surgical debridement in January. She had a wound VAC placed after surgery on the 04 of February and now presents here for management of her wound and Vac. She denies fever, chills or change in her bowel habits. Past Medical History Past Medical History: Chronic Problems (Last Reviewed 01/31/18 @ 01:49 by Giancarlo Burt MD) Mass of left kidney (Chronic) Surgical History: - - Csection complicated by wound infection, tubal ligation, left partial nephrectomy for RCC Allergies/Adverse Reactions: Allergies acetaminophen [From Tylenol] Adverse Reaction (Severe, Verified 02/08/18 13:28) Hives clindamycin Adverse Reaction (Severe, Verified 02/08/18 13:28) Hives Home Medications: Ambulatory Orders Medication Instructions Recorded RX: Albuterol Inhaler [Ventolin 2 puff INHALATION Q4H PRN PRN 08/07/17 Hfa] RX: Ipratropium/Albuterol Sulfate 3 ml INHALATION Q6H.RT PRN 08/07/17 - Family History Maternal Family History: Family History (Last Reviewed 01/31/18 @ 01:49 by Giancarlo Burt MD) Father Diabetes Uncle Cancer Grandmother Diabetes Diabetes Smoking Status: Current every day smoker Review of Systems Constitutional: Reports: Anorexia. Denies: Chills, Fever Eyes: Denies: Blurred vision, Pain, Redness HEENT: Denies: Difficulty Hearing Cardiovascular: Denies: Chest Pain, Chest Tightness Respiratory: Denies: Cough, Hemoptysis Gastrointestinal: Reports: Abdominal Pain, Vomiting. Denies: Hematemesis Genitourinary: Denies: Hematuria Skin: Denies: Jaundice - Physical Exam Vital Signs Temp Pulse Resp BP 97.5 F L 112 H 18 135/96 H 02/11/18 11:59 02/11/18 11:59 02/11/18 11:59 02/11/18 11:59 General: Alert, Oriented x3, Cooperative HEENT: Atraumatic, Normocephalic Oral: Moist Mucosa Neck: Supple Lungs: Normal air movement Cardiovascular: Regular rate, Regular Rhythm Abdomen: Soft, Obese, Tender Extremities: No cyanosis Skin: Ulcer/ Wound Wound Measurements and Assessment WC - Nurse 1 - General Ulcer Measurement Start: 02/11/18 11:47 Freq: Status: Active Protocol: Activity Type Activity Date Activity User E-Sign Co-Sign Detail Recorded Client Recorded Date Recorded By Document 02/11/18 11:59 CS [id number] 02/11/18 12:12 CS Wound Center Nurse 1 [Ulcer Assessment] 1. R abd -Combined with other wound No -Current Size (cm) - Length 1.5 WC - Nurse 2 - General Ulcer CM Notes Start: 02/11/18 11:47 Freq: Status: Active Protocol: Activity Type Activity Date Activity User E-Sign Co-Sign Detail Recorded Client Recorded Date Recorded By Document 02/11/18 12:28 MW [id number] 02/11/18 12:34 MW Wound Center Nurse 2 [Procedure/Treatment] Musculoskeletal: No Muscle Wasting Neurological: Cranial nerves II-XII grossly intact Psych/Mental Status: Normal Affect Debridement Note Post-Debridement Measurements/Treatment WC - Nurse 2 - General Ulcer CM Notes Start: 02/11/18 11:47 Freq: Status: Active Protocol: Activity Type Activity Date Activity User E-Sign Co-Sign Detail Recorded Client Recorded Date Recorded By Document 02/11/18 12:28 MW [id number] 02/11/18 12:34 MW Wound Center Nurse 2 1. R abd -Time 12:28 -Correct Patient Yes -Correct Side, Site, Position Yes -Correct Procedure Yes Wound debrided: Left-sided abdominal wound Wound Grade/Stage: Stage 3 Type of Debridement: Excisional debridement Anesthesia Used: 4% Lidocaine Solution Depth: Down to and including healthy tissue Percentage of wound debrided: 100 Instrument Used: 7mm curette Tissue Removed: Slough and devitalized tissue Severity: Fat Layer Exposed Amount of bleeding with debridement: Mild Bleeding Controlled with: Pressure Patient tolerated procedure well Assessment/Plan Assessment: Nonhealing postsurgical abdominal wound. Wound VAC management. Status post partial nephrectomy secondary to renal cell carcinoma. Plan: Debridement done as documented above. Procedure was well-tolerated. No concerning signs of infection at this time. Increase wound VAC to 150 mmHg. Change every 48 hours. Increased protein intake/supplements recommended. All her questions were answered and she was advised to call with any questions or concerns. Follow-up in 1 week. This note was generated with [employer] dictation software. It may contain incorrect words, spelling, and punctuation that were not noted in checking the note before signing. 02/17/18 1005 <Electronically signed by Alexis Sun MD> Date Alexis Sun MD CC: Signed PROGRESS NOTE-PHYSICIAN Observed: 02/17/2018 Status: F Source: [facility] 8:53 AM [facility] REPOSITORY Patient: TESS HALL Age: 37 years Sex: Female : 1980 Associated Diagnoses: None Author: Winston Oswald Jr, DO Postoperative Information Post Operative Note: Post Anesthesia Care Unit. Anesthetic utilized: Monitored anesthesia care. Health Status Allergies: Allergic Reactions (Selected) Severity Not Documented Acetaminophen- Vomiting. Bee Stings- Sob. Clindamycin- Hives. Problem list: All Problems Smoker / SNOMED CT [id number] / Confirmed Added secondary to documentation in Social History. Resolved: Cancer / SNOMED CT 1367070859 Physical Examination Vital Signs 02/17/2018 08:50 EST Heart Rate Monitored 98 bpm Respiratory Rate Monitored 19.0 br/min Systolic Blood Pressure 134 mmHg Diastolic Blood Pressure 98 mmHg HI SpO2 100 % 02/17/2018 08:40 EST Heart Rate Monitored 103 bpm HI Respiratory Rate Monitored 12.0 br/min Systolic Blood Pressure 155 mmHg HI Diastolic Blood Pressure 108 mmHg HI SpO2 99 % 02/17/2018 08:35 EST Heart Rate Monitored 108 bpm HI Respiratory Rate Monitored 10.0 br/min Systolic Blood Pressure 139 mmHg Diastolic Blood Pressure 97 mmHg HI SpO2 97 % 02/17/2018 08:27 EST Temperature Temporal Artery 36.2 DegC LOW Heart Rate Monitored 107 bpm HI Respiratory Rate Monitored 28.0 br/min Systolic Blood Pressure 123 mmHg Diastolic Blood Pressure 102 mmHg HI SpO2 98 % 02/17/2018 08:25 EST Heart Rate Monitored 104 bpm bpm SpO2 100 % % 02/17/2018 08:20 EST Heart Rate Monitored 102 bpm bpm Systolic Blood Pressure 137 mmHg mmHg Diastolic Blood Pressure 92 mmHg mmHg SpO2 100 % % 02/17/2018 08:15 EST Heart Rate Monitored 105 bpm bpm Systolic Blood Pressure 152 mmHg mmHg Diastolic Blood Pressure 105 mmHg mmHg SpO2 98 % % 02/17/2018 08:14 EST Systolic Blood Pressure 147 mmHg mmHg Diastolic Blood Pressure 122 mmHg mmHg 02/17/2018 07:16 EST Temperature Temporal Artery 36.3 DegC Heart Rate Monitored 109 bpm HI Respiratory Rate Monitored 18 br/min Systolic Blood Pressure 152 mmHg HI Diastolic Blood Pressure 110 mmHg HI Blood Pressure Location Left arm SpO2 98 % Vital Signs (last 24 hrs) Last Charted SBP 134 mmHg (FEB 17 08:50) DBP H 98 mmHg (FEB 17 08:50) SpO2 100 % (FEB 17 08:50) Height 165.1 cm (FEB 17:) Weight 136 kg (FEB 17:) Documented vital signs Pain assessment: Pain Assessment 02/17/2018 08:50 EST Pain Symptoms Self Report No, able to self report 02/17/2018 08:40 EST Pain Symptoms Self Report No, able to self report 02/17/2018 08:35 EST Pain Symptoms Self Report No, able to self report 02/17/2018 08:27 EST Question Ability to Self Report Pain Question ability to self report . General: Alert and oriented, No acute distress. Respiratory: Lungs are clear to auscultation. Cardiovascular: Normal rate, Regular rhythm. Neurologic: Normal sensory. Review / Management Condition: Stable. Assessment Anesthetic outcome No anesthetic complications noted. Adequate pain relief. TOLERATING PO INTAKE. voiding w/o diff.. No Complaint of nausea and vomiting. Plan Transfer/ Discharge: Condition stable. Result Comment: Electronically Signed By: Winston Oswald Jr, DO\Date and Time Signed: 02/17/18 08:53 EST PATIENT EDUCATION - Observed: 02/17/2018 Status: C Source: [facility] TEXT 8:35 AM MEDICAL [facility] Medicine Gastritis, Adult Gastritis is soreness and swelling (inflammation) of the lining of the stomach. Gastritis can develop as a sudden onset (acute) or long-term (chronic) condition. If gastritis is not treated, it can lead to stomach bleeding and ulcers. CAUSES Gastritis occurs when the stomach lining is weak or damaged. Digestive juices from the stomach then inflame the weakened stomach lining. The stomach lining may be weak or damaged due to viral or bacteri al infections. One common bacterial infection is the Helicobacter pylori infection. Gastritis can also result from excessive alcohol consumption, taking certain medicines, or having too much acid in the stomach. SYMPTOMS In some cases, there are no symptoms. When symptoms are present, they may include: ? Pain or a burning sensation in the upper abdomen. ? Nausea. ? Vomiting. ? An uncomfortable feeling of fullness after eating. DIAGNOSIS Your caregiver may suspect you have gastritis based on your symptoms and a physical exam. To determine the cause of your gastritis, your caregiver may perform the following: ? Blood or stool tests to check for the H pylori bacterium. ? Gastroscopy. A thin, flexible tube (endoscope) is passed down the esophagus and into the stomach. The endoscope has a light and camera on the end. Your caregiver uses the endoscope to view the inside of the stomach. ? Taking a tissue sample (biopsy) from the stomach to examine under a microscope. TREATMENT Depending on the cause of your gastritis, medicines may be prescribed. If you have a bacterial infection, such as an H pylori infection, antibiotics may be given. If your gastritis is caused by too much acid in the stomach, H2 blockers or antacids may be given. Your caregiver may recommend that you stop taking aspirin, ibuprofen, or other nonsteroidal anti- inflammatory drugs (NSAIDs). HOME CARE INSTRUCTIONS ? Only take [id number] or prescription medicines as directed by your caregiver. ? If you were given antibiotic medicines, take them as directed. Finish them even if you start to feel better. ? Drink enough fluids to keep your urine clear or pale yellow. ? Avoid foods and drinks that make your symptoms worse, such as: ? Caffeine or alcoholic drinks. ? Chocolate. ? Peppermint or mint flavorings. ? Garlic and onions. ? Spicy foods. ? [place] fruits, such as oranges, nydia, or limes. ? Tomato-based foods such as sauce, chili, salsa, and pizza. ? Fried and fatty foods. ? Eat small, frequent meals instead of large meals. SEEK IMMEDIATE MEDICAL CARE IF: ? You have black or dark red stools. ? You vomit blood or material that looks like coffee grounds. ? You are unable to keep fluids down. ? Your abdominal pain gets worse. ? You have a fever. ? You do not feel better after 1 week. ? You have any other questions or concerns. MAKE SURE YOU: ? Understand these instructions. ? Will watch your condition. ? Will get help right away if you are not doing well or get worse. Document Released: 03/24/2002 Document Revised: 09/28/2012 Document Reviewed: 05/12/2012 ExitCare? Patient Information ?2014 [employer]. This information is not intended to replace advice given to you by your health care provider. Make sure you discuss any questions you have with your health care provider. INPATIENT PATIENT Observed: 02/17/2018 Status: C Source: [facility] SUMMARY 8:35 AM [facility] Clinical Discharge Instructions PERSON INFORMATION Name: TESS HALL PHYSICIANS Admitting Physician: Heather Leonard MD Attending Physician: Heather Leonard MD PCP: AYANA CAREY Discharge Diagnosis: Comment: PATIENT EDUCATION INFORMATION Instructions: Gastritis, Adult Medication Leaflets: Follow up: With: Address: When: Heather Antunez [address] [place] [address] [place] [address] Business (1) MEDICATION LIST Comment: MAIN OR INTRAOPERATIVE Observed: 02/17/2018 Status: C Source: [facility] RECORD 8:20 AM [facility] IntraOp Document Type FT Summary Primary Physician: Heather Leonard MD Finalized Date/Time: 02/17/18 13:35:32 Pt. Name: TESS HALL D.O.B./Sex: 1980 Female Med Rec #: [id number] Physician: Heather Leonard MD Financial #: [id number] Pt. Type: O Room/Bed: / Admit/Disch: 02/17/18 06:52:42 - 02/17/18 23:59:59 Institution: Case Times FT Entry 1 Patient Times In Room 02/17/18 08:14:00 Out Room 02/17/18 08:27:00 Procedure Times Start 02/17/18 08:20:00 Stop 02/17/18 08:25:00 Anesthesia Times Start 02/17/18 08:14:00 Stop 02/17/18 08:27:00 Last Modified By: Ernestina Yousif CST 02/17/18 08:27:10 General Comments: 02/17/18 Chart opened to review and send charges Choco Yousif cst Case Attendance FT Entry 1 Entry 2 Entry 3 Case Attendee Winston Oswald Jr, DO RN, Laney Matos CST, Dalia Role Performed Anesthesiologist of Non Morse Intercept Technician - Primary Scrub - Primary Record Time In 02/17/18 08:14:00 02/17/18 08:14:00 02/17/18 08:14:00 Time Out 02/17/18 08:27:00 02/17/18 08:27:00 02/17/18 08:27:00 Procedure EGD(.) EGD(.) EGD(.) Comments Last Modified By: Ibis RN, Laney Baumann RN, Laney Baumann RN, Laney Perez 02/17/18 08:27:13 02/17/18 08:27:13 02/17/18 08:27:13 Entry 4 Entry 5 Case Attendee Jessa Herring MD, Heather Role Performed Scrub - Other Surgeon - Primary Time In 02/17/18 08:20:00 02/17/18 08:14:00 Time Out 02/17/18 08:27:00 02/17/18 08:27:00 Procedure EGD(.) EGD(.) Comments Help in room. Last Modified By: Ibis RN, Laney Baumann RN, Laney Perez 02/17/18 08:27:13 02/17/18 08:27:13 Perioperative Protocols FT Pre-Care Text: Implements protective measures prior to operative or invasive procedure, confirms identity before the operative or invasive procedure, verifies operative procedure, surgical site, and laterality Entry 1 Procedure(s) EGD(.) Patient Identity Birthday, ID Band Verified (select at Check, Patient least 2): Participation Consents / H and P Anesthesia Consent, Operative Site N/A Verified HandP, Surgery/Procedure Marking Verified Consent Surgical Site No Laterality Verified n/a Verified Procedure Verified Yes Correct Patient Yes Position Verified Availability Equipment, Medication Prep Dry n/a Verified (If Applicable) PreOp Antibiotic No Time Out Winston Oswald Jr, DO, Given Participants Laney Baumann RN, Roderick Antunez MD, Carlo Romero CST, Dalia Time Out Complete 02/17/18 08:18:00 Outcomes Met? Yes Last Modified By: Laney Baumann RN 02/17/18 08:19:20 Post-Care Text: The patient is free from signs and symptoms of injury caused by extraneous objects Allergy Information FT Pre-Care Text: Verifies allergies Entry 1 Allergies Reviewed? Yes Allergies Reviewed Self/Patient With Outcomes Met? Yes Last Modified By: Laney Baumann RN 02/17/18 06:43:19 Post-Care Text: The patient received appropriate medication(s) safely administered during the perioperative period Surgical Procedures FT Entry 1 Procedure Description Procedure EGD Modifiers . Surgeon Description EGD with gastric biopsy. Primary Procedure Yes Primary Surgeon Roderick Antunez MD, Heather Start 02/17/18 08:20:00 Stop 02/17/18 08:25:00 Anesthesia Type General Surgical Service Gastroenterology Wound Class 2 - Clean-Contaminated Last Modified By: Laney Baumann RN 02/17/18 08:25:22 General Case Data FT Pre-Care Text: Classifies surgical wound, implements aseptic technique, initiates traffic control Entry 1 Case Information OR ENDO 1 FT Case Level Level 2 Wound Class 2 - Clean-Contaminated Specialty Gastroenterology ASA Class 3 Preop Diagnosis EPIGASTRIC PAIN NAUSEA Postop Same As Preop No VOMITTING Postop Diagnosis Mild antral gastritis Outcomes Met? Yes Last Modified By: Laney Baumann RN 02/17/18 08:22:22 Post-Care Text: The patient is free from signs and symptoms of infection Skin Assessment (Pre Procedure) FT Pre-Care Text: Implements protective measures to prevent skin/ tissue injury due to thermal or mechanical sources Evaluates for signs and symptoms of physical injury to skin and tissue Entry 1 Skin Integrity Intact, [place], Warm, and Skin Abnormality No Dry Outcomes Met? Yes Last Modified By: Laney Baumann RN 02/17/18 06:43:46 Post-Care Text: The patient is free from signs and symptoms of injury caused by extraneous objects Patient Positioning FT Pre-Care Text: Identifies physical alterations that require additional precautions for procedure-specific positioning, verifies presence of prosthetics or corrective devices, positions the patient, evaluates the patient for signs and symptoms of injury as a result of positioning Entry 1 Procedure EGD(.) Body Position Lateral, right side up Feet Uncrossed? Yes Left Arm Position Resting at Side Right Arm Position Resting at Side Left Leg Position Extended Right Leg Position Extended Positioning Device Safety Strap, Pillow Under Head Large Press Points Checked Yes By Laney Baumann RN, Marsh Jr DO, James A Outcomes Met? Yes Last Modified By: Laney Baumann RN 02/17/18 06:43:59 Post-Care Text: The patient is free from signs and symptoms of injury related to positioning Patient Care Devices FT Pre-Care Text: Implements protective measures to prevent skin/ tissue injury due to thermal or mechanical sources Entry 1 Entry 2 Equipment Type ENDOSCOPY VIDEO MONITOR CHARGE SURGERY SYSTEM[F] [F] Equipment Number [id number] Equipment Setting Outcomes Met? Yes Yes Last Modified By: Laney Baumann RN, RN, Kara N 02/17/18 06:44:24 02/17/18 06:44:24 Post-Care Text: The patient is free from signs and symptoms of injury caused by extraneous objects Transport To OR Pre-Care Text: Transports according to individual needs. Evaluates for signs and symptoms of skin and tissue injury as a result of transfer or transport Entry 1 Via Cart By Laney Baumann RN Safety Precautions Side Rails Up Outcomes Met? Yes Last Modified By: Laney Baumann RN 02/17/18 06:44:31 Post-Care Text: The patient is free from signs and symptoms of injury related to transfer/transport Departure From OR FT Pre-Care Text: Transports according to individual needs. Evaluates for signs and symptoms of skin and tissue injury as a result of transfer or transport. Entry 1 Via Cart Safety Precautions Side Rails Up PostOp Destination PACU Transported By Laney Baumann RN Patient Status Stable Skin. Condition Intact, [place], Warm, and Dry Airway Maintenance Oxygen in Use? No Airway Device N/A Outcomes Met? Yes Last Modified By: Laney Baumann RN 02/17/18 06:44:53 Post-Care Text: The patient is free from signs and symptoms of injury related to transfer/transport General Comments: Report given to PACU,RN/KS,transportation planning engineer Administration FT Pre-Care Text: Verifies allergies, administers prescribed medications and solutions, administers prescribed antibiotic therapy and immunizing agents as ordered, evaluates response to medications Administers prescribed medications and solutions Entry 1 Expiration Date Yes Outcomes Met? Yes Verified Last Modified By: Laney Baumann RN 02/17/18 06:45:02 Post-Care Text: The patient received appropriate medication(s) safely administered during the perioperative period For Caitlin please see scanned medication reconcilliation form for medications used at the field during the procedure. Cultures and Specimens FT Pre-Care Text: Manages specimen handling and disposition Manages culture specimen collection Entry 1 Cultures Ordered n/a Specimens Ordered Yes Specimen Disposition Designated OR Area Frozen Section Times Outcomes Met? Yes Last Modified By: Laney Baumann RN 02/17/18 08:23:23 Post-Care Text: The patient is free from signs and symptoms of injury caused by extraneous objects The patient is free from signs and symptoms of infection Case Comments <None> Finalized By: Ernestina Yousif CST Document Signatures Signed By: Laney Baumann RN 02/17/18 08:27 Ernestina Yousif CST 02/17/18 13:35 MAIN OR PACU I Observed: 02/17/2018 Status: F Source: [facility] RECORD 8:20 AM [facility] REPOSITORY PACU Phase I Document Type FT Summary Primary Physician: Heather Leonard MD Finalized Date/Time: 02/17/18 09:00:57 Pt. Name: RAFAELTESS/Sex: 1980 Female Med Rec #: [id number] Physician: Heather Leonard MD Financial #: [id number] Pt. Type: O Room/Bed: / Admit/Disch: 02/17/18 06:52:42 - Institution: Case Times PACU I FT Pre-Care Text: Identifies barriers to communication and implements measures to provide psychological support Develops individualized plan of care, and ensures continuity of care Maintains patient's dignity and privacy, and maintains patient confidentiality Identifies and reports philosophical, cultural, and spiritual beliefs and values Identifies individual values and wishes concerning care Implements aseptic technique, and administers prescribed antibiotic therapy and immunizing agents as ordered Evaluates postoperative tissue perfusion Implements thermoregulation measures, and monitors body temperature Evaluates postoperative respiratory status Evaluates postoperative cardiac status Evaluates postoperative neurological status Assesses pain control, collaborated in initiating patient-controlled analgesia and implements alternative methods of pain control Verifies allergies, administers prescribed medications and solutions, evaluates response to medications Entry 1 In PACU I 02/17/18 08:27:00 Discharge from PACU 02/17/18 08:57:00 I Outcomes Met? Yes Last Modified By: Kaila Walker RN 02/17/18 09:00:45 Post-Care Text: The patient demonstrates knowledge of the expected response to the operative or invasive procedure The patient's care is consistent with the individualized perioperative plan of care The patient's right to privacy is maintained The patient's value system, lifestyle, ethnicity, and culture are considered, respected, and incorporated into the perioperative plan of care The patient participates in decisions affecting his or her perioperative plan of care The patient is free from signs and symptoms of infection The patient has wound/tissue perfusion consistent with or improved from baseline levels established preoperatively The patient is at or returning to normothermia at the conclusion of the immediate postoperative period The patient's respiratory function is consistent with or improved from baseline levels established preoperatively The patient's cardiovascular status is consistent with or improved from baseline levels established preoperatively The patient's cardiovascular status is consistent with or improved from baseline levels established preoperatively The patient demonstrates and/or reports adequate pain control throughout the perioperative period The patient received appropriate medication(s), safely administered during the perioperative period Acuity Level PACU I FT Entry 1 Start Time 02/17/18 08:27:00 Stop Time 02/17/18 08:57:00 Acuity Level Acuity Level I Last Modified By: Kaila Walker RN 02/17/18 09:00:54 Finalized By: Kaila Walker RN Document Signatures Signed By: Kaila Walker RN 02/17/18 09:00 MAIN OR PREOPERATIVE Observed: 02/17/2018 Status: F Source: [facility] RECORD 8:15 AM [facility] REPOSITORY Holding Area Document Type FT Summary Primary Physician: Heather Leonard MD Finalized Date/Time: 02/17/18 07:15:53 Pt. Name: TESS HALL D.O.B./Sex: 1980 Female Med Rec #: [id number] Physician: Heather Leonard MD Financial #: [id number] Pt. Type: O Room/Bed: / Admit/Disch: 02/17/18 06:52:42 - Institution: Case Times Holding FT Pre-Care Text: Verifies consent for planned procedure, identifies individual values and wishes concerning care, includes family members in perioperative teaching Secures patient's records' belongings, and valuables, maintains patient's dignity and privacy, and maintains patient confidentiality Entry 1 In Holding 02/17/18 07:00:00 Outcomes Met? Yes Last Modified By: Inez Hills RN 02/17/18 07:14:27 Post-Care Text: The patient participates in decisions affecting his or her perioperative plan of care The patient's right to privacy is maintained Surgery Checklist FT Entry 1 Patient Birthday, ID Band Procedure History and Physical, Identification: Check, Patient Verification: Surgical Consent, With Participation Patient NPO after Midnight: Yes Date/Time: 02/17/18 00:00:00 Personal Items: Jewelry Personal Items wound vac left side, Comment: piercing right eyebrow Limitations: none Complaints of Pain: No Pain Comment: denies Operative Site n/a Marking: Availability Equipment Verified: Does Patient Smoke Yes If Yes to Smoking. half pack daily Cigars or Cigarettes. How much per day? Patient states Yes Comment - Adult sister and brother postop adult Supervision supervision available Case Cancelled in No Holding Area see comments below for reason Last Modified By: Inez Hills RN 02/17/18 07:15:49 Finalized By: Inez Hills RN Document Signatures Signed By: Inez Hills RN 02/17/18 07:15 HISTORY AND PHYSICAL Observed: 02/17/2018 Status: F Source: [facility] 7:15 AM [facility] REPOSITORY Date: 02/15/2018 8:15 AM Patient Name: Tess Hall Gender: Female (age): 1980 (37) Provider: Heather Antunez MD Referring Physician: Ayana Concepcion CNP [facility] [address] [place] [phone] (phone) (fax) Chief Complaint: Follow up ER History of Present Illness: This is a 37 year old white female with PMHx of morbid obesity, DM, RCC s/p partial 12/09/17, Bipolar disorde and panic attacks who presents today complaining of, Nausea with vomiting, up to 3 times daily, not associated with meals. 10-15 lb unintentional weight loss, She has tried zofran, Phenergan, and Compazine which did not help. She is now taking Reglan 3-4 times a day which she states helps more than other medications as her vomiting is less. -- EGD -- if no improvement will consider GES Abdominal pain, for the last month, upper abdomen, described as an achey pain, constant no radiation, no contributing or resolving factors. Gas/Belching, associated with nausea She has a wound vac for a wound infection on the left side of her stomach. Never had a colonoscopy/Endoscopy before, No Fhx of GI CA, No AC Past Medical History Medical Conditions: Bipolar disorder Diabetes Mellitus Obesity Panic Attacks Surgical Procedures: partial kidney removal Dx Studies: No Prior Diagnostic Studies Medications: Basaglar KwikPen U-100 Insulin 100 unit/mL (3 mL) as directed doxycycline hyclate 50 mg Take 1 capsule by mouth twice a day metoclopramide HCl 10 mg Take 1 tablet by mouth as needed Allergies: Bees Clindamycin Tylenol Printed on 02/15/2018 Tess Hall, [id number], 1980 Page 1 of 5 Printed on 02/15/2018 Tess Hall [id number], 1980 Immunizations: No Immunizations Social History Alcohol: None Tobacco: Cigarettes. Current every day smoker Drugs: None Exercise: None Caffeine: daily. Marital Status: Family History No Knowledge Of Family History Review of Systems: Allergic/Immunologic: Denies strong allergic reactions or urticaria, HIV exposure, Immune Deficiency, persistent infections. Cardiovascular: Denies chest pain, dyspnea with exercise, irregular heart beat, orthopnea, palpitations, peripheral edema, syncope. Constitutional: Complains of Arthritis. Denies fatigue, fever, loss of appetite, malaise, sweats, weight gain, weight loss, exhaustion, chills. ENMT: Denies difficulty swallowing, dizziness, ear pain, nasal obstruction, nose bleeds, sore throat, ear discharge, frequent infections, hearing loss, high pitched ringing, hoarseness, nasal discharge. Endocrine: Complains of excessive thirst. Denies cold intolerance, excessive eating, excessive urination, hair loss, heat intolerance. Eyes: Denies double vision, loss of vision, photophobia, blurred vision, pain, wearing glasses/contacts. Gastrointestinal: Complains of abdominal pain, belching, gas, heartburn, nausea, stomach cramps, vomiting, weight loss. Denies abdominal swelling, change in bowel habits, constipation, diarrhea, jaundice, rectal bleeding. Genitourinary: Denies dark urine, decrease in urine flow, dysuria, frequent urinary infections, frequent urination, hematuria, nocturia, urethral discharge or incontinence, sexua difficulty, sexual transmitted diseases, kidney disease, kidney stones, pain with urination. Hematologic/Lymphatic: Denies bleeding gums or palpable lymph nodes, easy bruising, prolonged bleeding, swollen glands. Integumentary: Denies allergies, dryness, hives, itching, jaundice, lesions, rashes. Musculoskeletal: Denies arthritis, back pain, gout, joint deformity, joint pain, muscle weakness, stiffness, joint swelling, muscle pain. Neurological: Denies dizziness, fainting, frequent headaches, migraine, numbness or tingling, seizures, tremors, vertigo, memory disturbance. Psychiatric: Complains of anxiety, depression, nervousness, panic attacks. Denies difficulty sleeping, hallucinations, paranoia, abnormal stress, inability to concentrate, suicidal ideation. Respiratory: Complains of dyspnea, shortness of breath with exercise, wheezing. Denies asthma, cough, excessive sputum, hemoptisis, coughing up blood. Vital Signs: BP (mmHg) Pulse (ppm) Rhythm Weight (lbs/oz) Height (ft/in) BMI Resp/min Temp 152/117 104 Regular 299 / 49.75 12 97.2 (F) Physical Exam: Constitutional: Appearance: well developed, well nourished, normal habitus, no deformities, in no acute distress.. Skin: Inspection: no rashes, ulcers, icterus or other lesions; no clubbing or telangiectasias.. Printed on 02/15/2018 Tess Hall [id number], 1980 Page 2 of 5 Printed on 02/15/2018 Tess Hall [id number], 1980 Palpation: no induration or subcutaneos nodules.. Eyes: Conjunctivae/lids: normal conjunctivae and lids.. Pupils/irises: symmetrical, normoreactive to light, normal accommodation and size.. ENMT: Hearing: within normal limits. Lips/teeth/gums: normal oral mucosa,lips and gums; good dentition. Neck: Neck: normal motion, central trachea. Respiratory: Percussion: thorax normoresonant. Auscultation: normal breath sounds; no rubs, wheezes, rale or ronchi. Cardiovascular: Auscultation: normal rhythm, S1 and S2; no rubs, murmurs or gallop. Peripheral: no edema, varicocities or cyanosis.. Gastrointestinal/Abdomen: Abdomen: normal consistency and bowel sounds; no tenderness or masses. Left side wound VAC in place. Liver/Spleen: normal size and consistency, not palpable. Hernias: no hernias appreciated. Rectal: Not performed. Musculoskeletal: Gait/station: normal gait and station. Digits/nails: no clubbing, cyanosis, petechiae or other inflammatory conditions. Psychiatric: Judgment/insight: within normal limits. Orientation: oriented to time, space and person. Memory: within normal limits for recent and remote events. Mood and affect: no evidence of depression, anxiety or agitation. Impressions: Nausea and vomiting, unspecified possible gastroparesis as she responded to Reglan, with the rule out mechanical obstruction with EGD Epigastric pain: probably secondary to above, EGD to rule out PUD/esophagitis, empirical PPI daily (possible nephrotoxic side effects discussed) Obesity, BMI > 30 Plan: *Dietary Management Guidance Smoking Cessation Education EGD (Upper Endoscopy) will be performed at [facility]. Protonix 40 mg Take 1 tablet by mouth once a day one hour before meals for 30 days Risk & Medical Necessity: Diagnosis and management options are Multiple. The amount of data reviewed and/or ordered is Minimal/None. The level of risk is Moderate. Heather Antunez MD Tess Hall [id number], 1980 Page 3 of 5 Printed on 02/15/2018 Tess Hall [id number], 1980 Printed on 02/15/2018 Nii Light84, 1980 Page 4 of 5 Printed on 02/15/2018 Tess Hall, [id number], 1980 Printed on 02/15/2018 Tess Hall, [id number], 1980 Page 5 of 5 Printed on 02/15/2018 Tess Hall, [id number], 1980 no change Result Comment: Electronically Signed By: Roderick Antunez MD, Heather\.br\Date and Time Signed: 02/17/18 08:18 EST PROGRESS NOTE-PHYSICIAN Observed: 02/16/2018 Status: F Source: [facility] 1:25 PM [facility] REPOSITORY Patient: TESS HALL Age: 37 years Sex: Female : 1980 Associated Diagnoses: None Author: Winston Oswald Jr, DO Preoperative Information Anesthesia results Review of Systems Cardiovascular: Negative. Respiratory: Negative. Health Status Allergies: Allergic Reactions (Selected) Severity Not Documented Acetaminophen- Vomiting. Bee Stings- Sob. Clindamycin- Hives. Current medications: (Selected) Prescriptions Prescribed Reglan 10 mg Tab: 10 mg = 1 tab(s), Oral, QID, PRN Nausea/Vomiting, X 7 day(s), # 20 tab(s), Refills(s) 0, Home Medications (1) Active Reglan 10 mg Tab 10 mg = 1 tab(s), PRN, Oral, QID Problem list: All Problems Smoker / SNOMED CT [id number] / Confirmed Added secondary to documentation in Social History. Resolved: Cancer / SNOMED CT [id number] Histories Past Medical History: Resolved Cancer ([id number]): Resolved. Social History Social & Psychosocial Habits Alcohol Comment: denies - 12/17/2017 09:32 - Patsy Ramos RN Comment: denies - 12/18/2017 13:41 - Tamera Rosales RN Substance Abuse Comment: den - 12/17/2017 09:33 - Patsy Ramos RN Comment: denies - 12/18/2017 13:41 - Tamera Rosales RN Tobacco 12/17/2017 Type: Cigarettes Comment: 1 ppd - 12/17/2017 09:32 - Patsy Ramso RN 12/18/2017 Tobacco Use: Smoker, current status un . Physical Examination Airway: Mallampati classification: II (soft palate, fauces, uvula visible). Respiratory: Lungs are clear to auscultation. Cardiovascular: Regular rhythm. Neurologic: Alert, Oriented. Plan [place] [employer] (ASA) physical status classification: Class III. Anesthetic Preoperative Plan Anesthesia: General. . Anesthetic plan, risks, benefits, and alternatives discussed with the patient and/or family. Communication: face to face with (patient 5 minutes, Patient educated on smoking cesstation). Result Comment: Electronically Signed By: Winston Oswald Jr, DO\.kim\Date and Time Signed: 02/19/18 09:42 EST CODING SUMMARY. Observed: 02/12/2018 Status: F Source: [facility] 2:34 PM [facility] REPOSITORY CODING DATE: 02/12/2018 FINAL [facility] STATUS: Home (Routine DC) PAYOR: Medicaid EAPG DESCRIPTION 0495 MINOR CHEMOTHERAPY DRUGS 0457 VENIPUNCTURE 0408 LEVEL I HEMATOLOGY TESTS 0400 LEVEL I CHEMISTRY TESTS 0403 ORGAN OR DISEASE ORIENTED PANELS 0413 CARDIOGRAM 0288 DIAGNOSTIC ULTRASOUND EXCEPT OBSTETRICAL AND VASCULAR OF LOWER EXTREMITIES 0490 INCIDENTAL TO MEDICAL, SIGNIFICANT PROCEDURE OR THERAPY VISIT 0111 PHARMACOTHERAPY EXCEPT BY EXTENDED INFUSION 0627 NON-BACTERIAL GASTROENTERITIS, NAUSEA & VOMITING ADMIT DX: REASON FOR VISIT DX: R11.2 Nausea with vomiting, unspecified FINAL DX: PRINCIPAL: R11.2 Nausea with vomiting, unspecified SECONDARY: R00.0 Tachycardia, unspecified F17.210 Nicotine dependence, cigarettes, uncomplicated Z88.1 Allergy status to other antibiotic agents status Z88.6 Allergy status to analgesic agent status Z90.5 Acquired absence of kidney PYMT PROC EAPG STAT DESCRIPTION DOCTOR NAME DATE NOTE: The code number assigned matches the documented diagnosis and / or procedure in the patient's chart. However, the narrative phrase printed from the coding software may appear abbreviated, or result in slightly different terminology. Revised Coded By: Michelle Holcomb Revised Date Saved: 02/12/2018 02:34 pm ED PATIENT EDUCATION Observed: 02/10/2018 Status: C Source: [facility] NOTE 11:16 PM [facility] REPOSITORY Anesthesiology Nausea and Vomiting Nausea is a sick feeling that often comes before throwing up (vomiting). Vomiting is a reflex where stomach contents come out of your mouth. Vomiting can cause severe loss of body fluids (dehydration). Children and elderly adults can become dehydrated quickly, especially if they also have diarrhea. Nausea and vomiting are symptoms of a condition or disease. It is important to find the cause of your symptoms. CAUSES ? Direct irritation of the stomach lining. This irritation can result from increased acid production (gastroesophageal reflux disease), infection, food poisoning, taking certain medicines (such as nons teroidal anti-inflammatory drugs), alcohol use, or tobacco use. ? Signals from the brain.?These signals could be caused by a headache, heat exposure, an inner ear disturbance, increased pressure in the brain from injury, infection, a tumor, or a concussion, pain, e motional stimulus, or metabolic problems. ? An obstruction in the gastrointestinal tract (bowel obstruction). ? Illnesses such as diabetes, hepatitis, gallbladder problems, appendicitis, kidney problems, cancer, sepsis, atypical symptoms of a heart attack, or eating disorders. ? Medical treatments such as chemotherapy and radiation. ? Receiving medicine that makes you sleep (general anesthetic) during surgery. DIAGNOSIS Your caregiver may ask for tests to be done if the problems do not improve after a few days. Tests may also be done if symptoms are severe or if the reason for the nausea and vomiting is not clear. Tests may include: ? Urine tests. ? Blood tests. ? Stool tests. ? Cultures (to look for evidence of infection). ? X-rays or other imaging studies. Test results can help your caregiver make decisions about treatment or the need for additional tests. TREATMENT You need to stay well hydrated. Drink frequently but in small amounts.?You may wish to drink water, sports drinks, clear broth, or eat frozen ice pops or gelatin dessert to help stay hydrated.?When you eat, eating slowly may help prevent nausea.?There are also some antinausea medicines that may help prevent nausea. HOME CARE INSTRUCTIONS ? Take all medicine as directed by your caregiver. ? If you do not have an appetite, do not force yourself to eat. However, you must continue to drink fluids. ? If you have an appetite, eat a normal diet unless your caregiver tells you differently. ? Eat a variety of complex carbohydrates (rice, wheat, potatoes, bread), lean meats, yogurt, fruits, and vegetables. ? Avoid high-fat foods because they are more difficult to digest. ? Drink enough water and fluids to keep your urine clear or pale yellow. ? If you are dehydrated, ask your caregiver for specific rehydration instructions. Signs of dehydration may include: ? Severe thirst. ? Dry lips and mouth. ? Dizziness. ? Dark urine. ? Decreasing urine frequency and amount. ? Confusion. ? Rapid breathing or pulse. SEEK IMMEDIATE MEDICAL CARE IF: ? You have blood or brown flecks (like coffee grounds) in your vomit. ? You have black or bloody stools. ? You have a severe headache or stiff neck. ? You are confused. ? You have severe abdominal pain. ? You have chest pain or trouble breathing. ? You do not urinate at least once every 8 hours. ? You develop cold or clammy skin. ? You continue to vomit for longer than 24 to 48 hours. ? You have a fever. MAKE SURE YOU: ? Understand these instructions. ? Will watch your condition. ? Will get help right away if you are not doing well or get worse. Document Released: 03/30/2006 Document Revised: 06/21/2012 Document Reviewed: 08/27/2011 ExitCare? Patient Information ?2015 [employer]. This information is not intended to replace advice given to you by your health care provider. Make sure you discuss any questions you have with your health care provider. ED PATIENT SUMMARY Observed: 02/10/2018 Status: C Source: [facility] 11:16 PM [facility] REPOSITORY [place] [address] Patient Discharge Instructions Person Information Name: TESS HALL Age: 37 Years Arrival Date: 02/10/2018 5:54 PM Discharge Diagnosis: 1:Nausea and vomiting; 2:Tachycardia Primary Care Physician: AYANA CAREY Provider Information Primary Provider: Prosper Diaz Advanced Crank Hand:None The exam and treatment you received in the Emergency Department were for an urgent problem and are not intended as complete care. It is important that you follow up with a doctor, nurse practitioner, or physician?s assistant softball coach for ongoing care. If your symptoms become worse or you do not improve as expected and you are unable to reach your usual health care provider, you should return to the Emergency Department. We are available 24 hours a day. REISING, TESS J has been given the following list of patient education materials, prescriptions and follow-up instructions: Follow-up Instructions: With: Address: When: MIL[place] ANTUNEZ In 2 days 02/12/2018 Comments: call the office for an appointment in the next couple of days In the event that this physician does not participate in your insurance network, please consult with your insurance company to find a nearby participating provider. Patient Education Materials: Nausea and Vomiting A MESSAGE TO ALL PATIENTS REGARDING OPIOIDS PRESCRIPTION OPIOIDS: WHAT YOU NEED TO KNOW Prescription opioids can be used to help relieve dmjuwzwc-uj-yhculf pain and are often prescribed following a surgery or injury, or for certain health conditions. These medications can be an important p art of the treatment but also come with serious risks. It is important to work with your healthcare provider to make sure you are getting the safest, most effective care. WHAT ARE THE RISKS AND SIDE EFFECTS OF OPIOID USE? Prescription opioids carry serious risks of addiction and overdose, especially with prolonged use. An opioid overdose, often marked by slowed breathing, can cause sudden . The use of prescription o pioids can have a number of side effects as well, even when taken as directed: ? Tolerance?meaning you might need to take more of the medication for the same pain relief ? Physical dependence?meaning you have symptoms of withdrawal when a medication is stopped ? Increased sensitivity to pain ? Constipation ? Nausea, vomiting, and dry mouth ? Sleepiness and dizziness ? Confusion ? Depression ? Low levels of testosterone that can result in lower sex drive, energy, and strength ? Itching and sweating RISKS ARE GREATER WITH: ? History of drug misuse, substance use disorder, or overdose ? Mental health conditions (such as depression or anxiety) ? Sleep apnea ? Older age (65 years and older) ? Avoid alcohol while taking prescription opioids. Also, unless specifically advised by your health care provider, medications to avoid include: ? Benzodiazepines (such as Xanax or Valium) ? Muscle relaxants (such as Soma or Flexeril) ? Hypnotics (such as Ambien or Lunesta) ? Other prescription opioids KNOW YOUR OPTIONS Talk to your health care provider about ways to manage your pain that don?t involve prescription opioids. Some of these options may actually work better and have fewer risks and side effects. Options may include: ? Pain relievers such as acetaminophen, ibuprofen, and naproxen ? Some medication that are also used for depression or seizures ? Physical therapy and exercise ? Cognitive behavioral therapy, a psychological, goal- directed approach, in which patients learn how to modify physical, behavioral, and emotional triggers of pain and stress. IF YOU ARE PRESCRIBED OPIOIDS FOR PAIN: ? Never take opioids in greater amounts or more often than prescribed. ? Follow up with your primary health care provider. o Work together to create a plan on how to manage your pain. o Talk about ways to help manage your pain that don?t involve prescription opioids. o Talk about any and all concerns and side effects. ? Help prevent misuse and abuse o Never sell or share prescription opioids. o Never use another person?s prescription opioids. ? Store prescription opioids in a secure place and out of reach of others (this may include visitors, children, friends, and family). ? Safely dispose of unused prescription opioids: Find your community drug take-back program or your pharmacy mail-back program, or flush them down the toilet, following guidance from the Food and Drug Administration (www.fda.gov/Drugs/ResourcesForYou). ? Visit www.cdc.gov/drugoverdose to learn about the risks of opioids abuse and overdose. ? If you believe you may be struggling with addiction, tell your health career technical counselor and ask for guidance or call SAMHSA?S National Helpline at 1-830-175-IRWN. j Source: [place] Department of Health and Human Services/Center for Disease Control & Prevention [facility] Medications Given: Medication Dose Route Sodium Chloride 0.9% intravenous solution 1000.00 mL Initial Volume 125.00 mL/hr IV Left Antecubital [place] Sodium Chloride 0.9% intravenous solution 1000.00 mL Initial Volume 1000.00 mL/hr IV Left Antecubital Kiran ondansetron 8.00 mg IV Push Left Antecubital [place] metoclopramide 10.00 mg IV Push Left Hand Medication Information: New Medications Printed Prescriptions metoclopramide (Reglan 10 mg Tab) 1 Tabs By Mouth 4 times a day as needed Nausea/Vomiting for 7 Days. Refills: 0. Comment: Pharmacy Information: Thank you for choosing [facility] Patient Education Materials: Nausea and Vomiting Nausea is a sick feeling that often comes before throwing up (vomiting). Vomiting is a reflex where stomach contents come out of your mouth. Vomiting can cause severe loss of body fluids (dehydration). Children and elderly adults can become dehydrated quickly, especially if they also have diarrhea. Nausea and vomiting are symptoms of a condition or disease. It is important to find the cause of your symptoms. CAUSES ? Direct irritation of the stomach lining. This irritation can result from increased acid production (gastroesophageal reflux disease), infection, food poisoning, taking certain medicines (such as nons teroidal anti-inflammatory drugs), alcohol use, or tobacco use. ? Signals from the brain.?These signals could be caused by a headache, heat exposure, an inner ear disturbance, increased pressure in the brain from injury, infection, a tumor, or a concussion, pain, e motional stimulus, or metabolic problems. ? An obstruction in the gastrointestinal tract (bowel obstruction). ? Illnesses such as diabetes, hepatitis, gallbladder problems, appendicitis, kidney problems, cancer, sepsis, atypical symptoms of a heart attack, or eating disorders. ? Medical treatments such as chemotherapy and radiation. ? Receiving medicine that makes you sleep (general anesthetic) during surgery. DIAGNOSIS Your caregiver may ask for tests to be done if the problems do not improve after a few days. Tests may also be done if symptoms are severe or if the reason for the nausea and vomiting is not clear. Tests may include: ? Urine tests. ? Blood tests. ? Stool tests. ? Cultures (to look for evidence of infection). ? X-rays or other imaging studies. Test results can help your caregiver make decisions about treatment or the need for additional tests. TREATMENT You need to stay well hydrated. Drink frequently but in small amounts.?You may wish to drink water, sports drinks, clear broth, or eat frozen ice pops or gelatin dessert to help stay hydrated.?When you eat, eating slowly may help prevent nausea.?There are also some antinausea medicines that may help prevent nausea. HOME CARE INSTRUCTIONS ? Take all medicine as directed by your caregiver. ? If you do not have an appetite, do not force yourself to eat. However, you must continue to drink fluids. ? If you have an appetite, eat a normal diet unless your caregiver tells you differently. ? Eat a variety of complex carbohydrates (rice, wheat, potatoes, bread), lean meats, yogurt, fruits, and vegetables. ? Avoid high-fat foods because they are more difficult to digest. ? Drink enough water and fluids to keep your urine clear or pale yellow. ? If you are dehydrated, ask your caregiver for specific rehydration instructions. Signs of dehydration may include: ? Severe thirst. ? Dry lips and mouth. ? Dizziness. ? Dark urine. ? Decreasing urine frequency and amount. ? Confusion. ? Rapid breathing or pulse. SEEK IMMEDIATE MEDICAL CARE IF: ? You have blood or brown flecks (like coffee grounds) in your vomit. ? You have black or bloody stools. ? You have a severe headache or stiff neck. ? You are confused. ? You have severe abdominal pain. ? You have chest pain or trouble breathing. ? You do not urinate at least once every 8 hours. ? You develop cold or clammy skin. ? You continue to vomit for longer than 24 to 48 hours. ? You have a fever. MAKE SURE YOU: ? Understand these instructions. ? Will watch your condition. ? Will get help right away if you are not doing well or get worse. Document Released: 03/30/2006 Document Revised: 06/21/2012 Document Reviewed: 08/27/2011 ExitCare? Patient Information ?2014 [facility], [facility]. This information is not intended to replace advice given to you by your health care provider. Make sure you discuss any questions you have with your health care provider. RAFAEL Siegel BRIANNA J , have received the following patient education materials/instructions and have verbalized understanding: Patient Education Materials: Nausea and Vomiting Follow-up Instructions: With: Address: When: MILAGRO ANTUNEZ In 2 days 02/12/2018 Comments: call the office for an appointment in the next couple of days Prescriptions: [metoclopramide (Reglan 10 mg Tab)] Patient Signature Date Clinician/Nurse Signature Date 02/10/18 23:16:09 ED CLINICAL SUMMARY Observed: 02/10/2018 Status: C Source: [facility] 11:16 PM [facility] REPOSITORY [place] [address] ED Clinical Summary Person Information Name: TESS HALL [place] Age: 37 Years : 1980 12:00 AM Sex: Female Language: Maltese PCP: AYANA CAREY Marital Status: Visit Id: Visit Reason: Vomiting; 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 Speciality: Acuity: 3 Enc Type: Emergency Med Service: Emergency Arrival: 02/10/2018 5:54 PM Discharge: 02/10/2018 11:15 PM LOS: 000 05:21 Checkin: 02/10/2018 5:54 PM Checkout: 02/10/2018 11:15 PM Dispo Type: Home (Routine DC) EVENTS: Event Name Event Status Request Date/Time Start Date/Time Complete Date/Time Arrive Complete 02/10/2018 5:54 PM 02/10/2018 5:54 PM 02/10/2018 5:54 PM Document Home Meds Request 02/10/2018 5:54 PM Triage Complete 02/10/2018 5:54 PM 02/10/2018 6:09 PM 02/10/2018 6:09 PM Meds Admin Complete 02/10/2018 5:58 PM 02/10/2018 6:58 PM Pending Labs Request 02/10/2018 5:58 PM Lab Request 02/10/2018 5:58 PM Urine Collect Request 02/10/2018 5:58 PM Patient Care Request 02/10/2018 5:58 PM Bed Assign Complete 02/10/2018 5:59 PM 02/10/2018 5:59 PM 02/10/2018 5:[address] Exam Complete 02/10/2018 5:59 PM 02/10/2018 6:07 PM 02/10/2018 6:07 PM RN Exam Complete 02/10/2018 5:59 PM 02/10/2018 10:17 PM 02/10/2018 10:17 PM Registration Complete 02/10/2018 6:07 PM 02/10/2018 6:47 PM 02/10/2018 6:47 PM Isolation Screening Request 02/10/2018 6:09 PM US Complete 02/10/2018 6:18 PM 02/10/2018 10:19 PM 02/10/2018 10:49 PM Meds Admin Request 02/10/2018 6:18 PM Pending Labs Complete 02/10/2018 6:18 PM 02/10/2018 9:16 PM Patient Care Request 02/10/2018 6:18 PM EKG Complete 02/10/2018 6:18 PM 02/10/2018 7:19 PM Pending Labs Complete 02/10/2018 6:46 PM 02/10/2018 6:46 PM 02/10/2018 7:15 PM Lab Complete 02/10/2018 6:46 PM 02/10/2018 6:46 PM 02/10/2018 7:15 PM Reg Complete Request 02/10/2018 6:47 PM Reg Bed Request Complete 02/10/2018 6:47 PM 02/10/2018 6:47 PM 02/10/2018 6:47 PM Pending Labs Complete 02/10/2018 7:05 PM 02/10/2018 7:05 PM 02/10/2018 7:05 PM Lab Complete 02/10/2018 7:05 PM 02/10/2018 7:05 PM 02/10/2018 7:05 PM Meds Admin Request 02/10/2018 7:36 PM Meds Admin Complete 02/10/2018 7:38 PM 02/10/2018 9:34 PM Discharge Complete 02/10/2018 11:04 PM 02/10/2018 11:16 PM 02/10/2018 11:16 PM Transfer Complete 02/10/2018 11:16 PM 02/10/2018 11:16 PM 02/10/2018 11:16 PM ADDRESS: [address] [place] [id number] PHYS DOC NOTES: MEDICAL INFORMATION: Prescriptions Given: Prescription Display metoclopramide (Reglan 10 mg Tab) 10 mg = 1 tab(s), Oral, QID, PRN Nausea/Vomiting, X 7 day(s), # 20 tab(s), Refills(s) 0 PATIENT EDUCATION INFORMATION: Instructions: Nausea and Vomiting Follow up: With: Address: When: MILAGRO ANTUNEZ In 2 days 02/12/2018 Comments: call the office for an appointment in the next couple of days DIAGNOSIS: 1:Nausea and vomiting; 2:Tachycardia PROGRESS NOTE-NURSE Observed: 02/10/2018 Status: F Source: [facility] 11:14 PM [facility] REPOSITORY Pt A&OX4, RR even and unlabored, skin w/d/i, NAD. Discharge instruction given to patient with scripts x1, verbalized understanding. Discharged home, ambulatory with steady gait, denied any other needs at this time. ED NOTE-PHYSICIAN Observed: 02/10/2018 Status: F Source: [facility] 11:05 PM [facility] REPOSITORY care signed out at change of shift. Patient with recurrent vomiting. US of gallbladder ordered at change of shift. Results retuned and limited because of body habitus. No obvious stones per tech. Patien t treated with reglan and her nausea is now controlled and she is felling better. We discussed possible gastroparesis. Will refer to GI for evaluation Impression: recurrent vomiting Result Comment: Electronically Signed By: Michael PADGETT, Killian\.br\Date and Time Signed: 02/10/18 23:15 EDT PROGRESS NOTE-NURSE Observed: 02/10/2018 Status: F Source: [facility] 10:45 PM [facility] REPOSITORY Rn Cardiovascular Icu at bedside to reassess patient. Patient A&OX4, RR even adn unlabored, skin w/d/i, NAD. Vitals stable. Pt stating her nausea has improved and abdominal pain is gone following receiving reglan. Pt provided Ice chips per request. Updated on poc, verbalized understanding. Carito walkery other needs at this time. PROGRESS NOTE-NURSE Observed: 02/10/2018 Status: F Source: [facility] 10:25 PM [facility] REPOSITORY Pt to US via stretcher with tech. US GALLBLADDER Observed: 02/10/2018 Status: F Source: [facility] 10:19 PM [facility] REPOSITORY Exam Date/Time: 02/10/2018 22:49 EDT Reason for Exam: Abdominal pain Report IMPRESSION: NEGATIVE ULTRASOUND OF THE GALLBLADDER. CLINICAL HISTORY: Abdominal pain. COMMENT: The gallbladder is normal in size and ultrasound appearance. No gallstones are noted. There is no biliary ductal dilatation. The common bile duct measures less than 3 mm in diameter. FINAL REPORT Dictated: 02/11/2018 10:00 am Cedrick Oliveira M.D. Signed (Electronic Signature): 02/11/2018 10:00 am Signed by: Cedrick Oliveira M.D. Transcribed by: PARAM Technologist: LINDSAY PROGRESS NOTE-NURSE Observed: 02/10/2018 Status: F Source: [facility] 9:39 PM [facility] RE[facility] Patient is laying in bed crying. Pt reports I am miserable. no one understands what I am going through, I hate this! PROGRESS NOTE-NURSE Observed: 02/10/2018 Status: F Source: [facility] 9:35 PM [facility] REPOSITORY Physician at bedside speaking with patient regarding plan of care at this time. B HCG QUAL Collected: 02/10/2018 Status: F Source: [facility] 8:25 PM [facility] REPOSITORY Order Comment: unable to obtain specimen BHARGAVI Cohen IV attempt nessa Zuluaga to try with ultrasound TYPE CODE TESTS RESULT OUT OF RANGE REFERENCE UNITS LAB [id number](LO INC) Normal Beta NEGATIVE hCG Ql Performed By: #### [id number] #### [facility] [address] [place] [address] PROGRESS NOTE-NURSE Observed: 02/10/2018 Status: F Source: [facility] 7:20 PM [facility] REPOSITORY Pt IV infiltrated, discontinued. Pt informed another steam shovel oiler would be in to intiated IV. BHARGAVI Delvalle informed of need for assistance. Pt updated on poc, verbalized understanding. Denied any other needs at this time. CBC W/ AUTO DIFF Collected: 02/10/2018 Status: F Source: [facility] 6:46 PM [facility] REPOSITORY TYPE CODE TESTS RESULT OUT OF REFERENCE UNITS RANGE LAB 71771-5(LO 4.0-11.0 E9/L INC) LEUKOCYTES Normal 8.1 LAB 789-8(LOIN 4.3-5.9 E12/L C) Normal ERYTHROCYTES:NCNC: 4.7 PT:BLD:QN:AUTOMATE D COUNT LAB 718-7(LOIN 12.0-16.0 gm/dL C) Normal HEMOGLOBIN:MCNC:PT 12.7 :BLD:QN: LAB 4544-3(HECTOR 34.0-46.0 % NC) Normal HEMATOCRIT:VFR:PT: 37.5 BLD:QN:AUTOMATED COUNT LAB 788-0(LOIN 10.9-14.2 % C) ERYTHROCYTE High DISTRIBUTION 15.9 WIDTH:RATIO:PT:RBC :QN:AUTOMATED COUNT LAB 785-6(LOIN 27.0-34.0 pg C) Low ERYTHROCYTE MEAN CORPUSCULAR 26.8 HEMOGLOBIN:ENTMASS :PT:RBC:QN:AUTOMAT ED COUNT LAB 786-4(LOIN 31.4-39.3 gm/dL C) ERYTHROCYTE Normal MEAN CORPUSCULAR 33.8 HEMOGLOBIN CONCENTRATION:MCNC :PT:RBC:QN:AUTOMAT ED COUNT LAB 787-2(LOIN 80.0-100.0 fL C) Low ERYTHROCYTE MEAN CORPUSCULAR 79.3 VOLUME:ENTVOL:PT:R BC:QN:AUTOMATED COUNT LAB 94566-3(LO 6.4-10.8 fL INC) PLATELET MEAN Normal VOLUME:ENTVOL:PT:B 7.6 LD:QN:AUTOMATED COUNT LAB 777-3(LOIN 150.0-500.0 E9/L C) Normal PLATELETS:NCNC:PT: 192.0 BLD:QN:AUTOMATED COUNT Result Comment: Platelet count verified using smear estimate Performed By: #### [id number] #### [facility] [address] [place] [address] AUTO DIFF Collected: 02/10/2018 Status: F Source: [facility] 6:46 PM [facility] REPOSITORY Order Comment: Order Added by Discern Expert. TYPE CODE TESTS RESULT OUT OF RANGE REFERENCE UNITS LAB 751-8(LOINC 36.0-75.0 % ) Normal 67.6 NEUTROPHILS: NCNC:PT:BLD: QN:AUTOMATED COUNT LAB 731-0(LOINC 14.0-50.0 % ) Normal 23.5 LYMPHOCYTES: NCNC:PT:BLD: QN:AUTOMATED COUNT LAB 742-7(LOINC 4.0-14.0 % ) Normal 6.5 MONOCYTES:NC NC:PT:BLD:QN :AUTOMATED COUNT LAB 711-2(LOINC 0.0-8.0 % ) Normal 1.7 EOSINOPHILS: NCNC:PT:BLD: QN:AUTOMATED COUNT LAB 704-7(LOINC 0.0-2.0 % ) Normal 0.7 BASOPHILS:NC NC:PT:BLD:QN :AUTOMATED COUNT LAB 96994-3(HECTOR 2.0-7.5 E9/L NC) Normal 5.5 NEUTROPHILS/ LEUKOCYTES:N FR.DF:PT:BLD :QN:AUTOMATE D COUNT LAB 15917-8(HECTOR 1.0-4.0 E9/L NC) Normal 1.9 LYMPHOCYTES/ LEUKOCYTES:N FR.DF:PT:BLD :QN:AUTOMATE D COUNT LAB 92165-8(HECTOR 0.2-1.0 E9/L NC) Normal 0.5 MONOCYTES/LE UKOCYTES:NFR .DF:PT:BLD:Q N:AUTOMATED COUNT LAB 29816-4(HECTOR 0.0-0.5 E9/L NC) Normal 0.1 EOSINOPHILS/ LEUKOCYTES:N FR.DF:PT:BLD :QN:AUTOMATE D COUNT LAB 80376-8(HECTOR 0.0-0.2 E9/L NC) Normal 0.1 BASOPHILS/LE UKOCYTES:NFR .DF:PT:BLD:Q N:AUTOMATED COUNT Performed By: #### [id number], [id number], [id number], [id number], [id number], [id number] #### [facility] [address] [place] [address] LIPASE LEVEL Collected: 02/10/2018 Status: F Source: [employer] 6:46 PM [facility] TYPE CODE TESTS RESULT OUT OF REFERENCE UNITS RANGE LAB 3040-3(LO 13-58 unit/L INC) TRIACYLGLYCEROL Normal LIPASE:CCNC:PT:SER/P 14 LAS:QN: Performed By: #### [id number], [id number], [id number], [id number], [id number], [id number] #### [facility] [address] [place] [address] BMP Collected: 02/10/2018 Status: F Source: [employer] 6:46 PM [facility] REPOSITORY TYPE CODE TESTS RESULT OUT OF RANGE REFERENCE UNITS LAB 2339-0(LOIN 55-199 mg/dL C) Normal 191 GLUCOSE:MCNC :PT:BLD:QN: Result Comment: If this glucose result represents a fasting glucose, interpretation should refer to the following reference range: 55-99 mg/dL LAB 3094-0(LOINC) 5-21 mg/dL UREA NITROGEN:MCNC:PT:SER/PLAS:QN: High 35 LAB 2160-0(LOINC) 0.5-1.3 mg/dL CREATININE:MCNC:PT:SER/PLAS:QN: High 2.3 LAB 3097-3(LOINC) 10-20 No Units UREA NITROGEN/CREATININE:MRTO:PT:SER/ Normal PLAS:QN: 15 LAB 89891-5(LOINC) 8.9-11. mg/dL 1 CALCIUM:MCNC:PT:SER/PLAS:QN: Normal 8.9 LAB 2951-2(LOINC) 135-145 mmol/L SODIUM:SCNC:PT:SER/PLAS:QN: Low 134 LAB 2823-3(LOINC) 3.5-5.3 mmol/L POTASSIUM:SCNC:PT:SER/PLAS:QN: Normal 4.1 LAB 2075-0(LOINC) 101-111 mmol/L CHLORIDE:SCNC:PT:SER/PLAS:QN: Normal 101 LAB 2028-9(LOINC) 21-31 mmol/L CARBON DIOXIDE:SCNC:PT:SER/PLAS:QN: Normal 24 LAB 50044-3(LOINC) 6-16 mEq/L ANION GAP:SCNC:PT:SER/PLAS:QN: Normal 13 Performed By: #### [id number], [id number], [id number], [id number], [id number], [id number] #### [facility] [address] [place] [address] HEP FUNC PANEL Collected: 02/10/2018 Status: F Source: [facility] 6:46 PM [facility] REPOSITORY TYPE CODE TESTS RESULT OUT OF RANGE REFERENCE UNITS LAB 1744-2(HECTOR 6-46 Int._Unit/L NC) Normal ALANINE 15 AMINOTRANSFERAS E:CCNC:PT:SER/P LAS:QN:NO ADDITION OF P-5'-P LAB 1920-8(HECTOR 5-43 Int._Unit/L NC) Normal ASPARTATE 21 AMINOTRANSFERAS E:CCNC:PT:SER/P LAS:QN: LAB 1751-7(HECTOR 3.3-5.0 gm/dL NC) Low ALBUMIN:MCNC:PT 3.0 :SER/PLAS:QN: LAB 81775-2(LO 1.4-4.0 gm/dL INC) Normal GLOBULIN:MCNC:P 3.8 T:SER:QN:CALCUL ATED LAB 30582-0(LO 1.1-2.2 INC) Low ALBUMIN/GLOBULI 0.8 N:MCRTO:PT:SER: QN: LAB 6768-6(HECTOR 21-98 Int._Unit/L NC) Normal ALKALINE 95 PHOSPHATASE:CCN C:PT:SER/PLAS:Q N: LAB 1968-7(HECTOR 0.1-0.4 mg/dL NC) Normal BILIRUBIN.GLUCU 0.2 RONIDATED+BILIR UBIN.ALBUMIN BOUND:MCNC:PT:S ER/PLAS:QN: LAB 55827-1(LO 0.1-0.9 mg/dL INC) Normal BILIRUBIN.NON-G 0.5 LUCURONIDATED:M SCNC:PT:SER/TIM S:QN: LAB 1975-2(HECTOR 0.0-1.1 mg/dL NC) Normal BILIRUBIN:MCNC: 0.7 PT:SER/PLAS:QN: LAB 2885-2(HECTOR 6.0-7.8 gm/dL NC) Normal PROTEIN:MCNC:PT 6.8 :SER/PLAS:QN: Performed By: #### [id number], [id number], [id number], [id number], [id number], [id number] #### [facility] [address] [place] [address] EGFR Collected: 02/10/2018 Status: F Source: [facility] 6:46 PM [facility] REPOSITORY Order Comment: Order added by Discern Expert. TYPE CODE TESTS RESULT OUT OF REFERENCE UNITS RANGE LAB 21197-8(LO >=59 mL/min/1.73 INC) Low m2 GLOMERULAR 24 FILTRATION RATE/1.73 SQ M.PREDICTED.NON BLACK:ARVRAT:PT: SER/PLAS:QN:CREA TININE-BASED FORMULA (MDRD) Result Comment: Chronic kidney disease could be indicated at eGFR's of less than 60 mL/min/1.73m2. Kidney failure is indicated at less than 15 mL/min/1.73m2. LAB 68706-6(LOINC) GLOMERULAR >=59 mL/min/1.73 FILTRATION RATE/1.73 SQ m2 M.PREDICTED.BLACK:ARVRAT:PT:SER/PLAS:QN:CREATININE-BASED FORMULA (MDRD) Low 29 Result Comment: eGFR is race adjusted. AA=. Performed By: #### [id number], [id number], [id number], [id number], [id number], [id number] #### [facility] [address] [place] [address] ED NOTE-PHYSICIAN Observed: 02/10/2018 Status: F Source: [facility] 6:25 PM [facility] REPOSITORY Basic Information Time Seen: Prosper Diaz DO F 02/10/2018 18:07 1930 hours. Patient care endorsed to Dr. Rodriguez. Patient care discussed with Dr. Rodriguez. Chief Complaint vomiting for a month partial L nephrectomy on 12/09/17 at [facility]. pt. has wound vac from an abscess in her L flank area. denies fever/chills. sent here by PCP office. History of Present Illness 37-year-old female reports a one-month history of nausea and vomiting. Patient reports abdominal pain and she believes is secondary to the vomiting. Patient had a left nephrectomy at the [facility] in November 2017. Patient was hospitalized at the [facility] for a wound infection in December 2017. Patient reports that she was recently hospitalized at [facility] and was discharged on February 04. Patient reports that she is having problems with her kidneys. Patient reports that she is being followed by a geophysical laboratory supervisor at [facility]. Patient is having her wound care done at [facility]. Review of Systems Constitutional: no fever, no chills, no sweats, moderate weakness Skin: no Jaundice, no rash, no lesions, nopetechiae ENMT: no ear pain, no sore throat, no congestion, no hoarseness Respiratory: no shortness of breath, no cough, no wheezing Cardiovascular: no chest pain, no palpitations, no edema Gastrointestinal: moderate nausea, moderate vomiting, no diarrhea Genitourinary: no dysuria, no hematuria, no discharge, no pain Musculoskeletal: no back pain, no trauma Neurologic: no headache, no dizziness, no numbness, no weakness Psychiatric: no sleeping problems, no irritability, no mood swings/depression. Heme/Lymph: no bleeding tendency, no bruising tendency, no petechiae, no swollen nodes Allergy/Immunologic: no seasonal allergies, no food allergies, no recurrent infections, no impaired immunity Additional ROS info: Except as noted in the above Review of Systems and in the History of Present Illness all other systems have been reviewed and are negative or noncontributory. Physical Exam Vitals & Measurements T: 35.8 ?C (Tympanic) HR: 120(Peripheral) RR: 20 BP: 152/110 SpO2: 98% HT: 165 cm WT: 135 kg BMI: 49.59 General: alert, no acute distress Skin: warm, dry Head: no trauma, normocephalic Neck: Trachea midline, no tenderness Eye: normal conjunctiva ENMT: TM's clear, oral mucosa moist, no pharyngeal erythema or exudate Cardiovascular: Regular tachycardia normal peripheral perfusion Respiratory: Lungs CTA, respirations non labored Gastrointestinal: soft, non distended, no tenderness, no guarding. Back: No tenderness, Normal alignment. Extremities: no deformity, no trauma Neurological: oriented x 3, LOC appropriate for age, no facial weakness motor strength equal & normal bilaterally, speech normal Psychiatric: cooperative, affect appropriate for age, normal judgement Medical Decision Making Possible gallbladder debris/Cholelithiasis is noted on the patient's computed axial tomography scan from December 2017 BUN was 40 on February 08, creatinine was 2.46 on February 08 Gallbladder ultrasound pending. Patient reevaluation and by mouth tolerance pending Assessment/Plan 1. Nausea and vomiting 2. Tachycardia Orders: ondansetron, 8 mg = 4 mL, Injection, IV Push, Once, Stop date 02/10/18 18:16:00 EDT, STAT, Start date 02/10/18 18:16:00 EDT Sodium Chloride 0.9% intravenous solution 1,000 mL, 1,000 mL, IV, 1,000 mL/hr, for 1 hour(s), Stop date 02/10/18 19:15:00 EDT, STAT, Start date 02/10/18 18:16:00 EDT, 1 hour(s), Total volume (mL) : 1,000, Bolus Dose: 1,000 mL Sodium Chloride 0.9% intravenous solution 1,000 mL, 1,000 mL, IV, 125 mL/hr, STAT, Start date 02/10/18 18:16:00 EDT, 8 hour(s), Total volume (mL): 1,000 Beta hCG Qual ECG 12 Lead Adult NPO Diet Saline Lock Insert US Gallbladder Medications Administered Given NS 1000 ml Bolus 1,000 mL, 1000 mL, IV Sodium Chloride 0.9% IV Anais 1000 mL 1,000 mL, 1000 mL, IV Zofran 4 mg/2 mL Injection, 8 mg, IV Push Disposition Plan Discharge Disposition Pending Discharge Prescription List Prescriptions No active prescription medications Follow-up No qualifying data available Problem List/Past Medical History Ongoing Smoker Historical Cancer Medications Inpatient NS 1000 ml Bolus 1,000 mL, 1000 mL, IV NS 1000 ml Bolus 1,000 mL, 1000 mL, IV Sodium Chloride 0.9% IV Anais 1000 mL 1,000 mL, 1000 mL, IV Zofran 4 mg/2 mL Injection, 8 mg= 4 mL, IV Push, Once Home No active home medications Allergies Bee Stings (SOB) acetaminophen (vomiting) clindamycin (hives) Social History Alcohol Substance Abuse Tobacco Smoker, current status unknown Tobacco Use:., 12/18/2017 Cigarettes, 12/17/2017 Lab Results WBC: 8.1 E9/L (02/10/18 18:46:00 EDT) RBC: 4.7 E12/L (02/10/18 18:46:00 EDT) Hgb: 12.7 gm/dL (02/10/18 18:46:00 EDT) Hct: 37.5 % (02/10/18 18:46:00 EDT) MCV: 79.3 fL Low (02/10/18 18:46:00 EDT) MCH: 26.8 pg Low (02/10/18 18:46:00 EDT) MCHC: 33.8 gm/dL (02/10/18 18:46:00 EDT) RDW: 15.9 % High (02/10/18 18:46:00 EDT) Platelet: 192 E9/L (02/10/18 18:46:00 EDT) MPV: 7.6 fL (02/10/18 18:46:00 EDT) Neutro Auto: 67.6 % (02/10/18 18:46:00 EDT) Lymph Auto: 23.5 % (02/10/18 18:46:00 EDT) Martin Auto: 6.5 % (02/10/18 18:46:00 EDT) Eos Auto: 1.7 % (02/10/18 18:46:00 EDT) Basophil Auto: 0.7 % (02/10/18 18:46:00 EDT) Neutro Absolute: 5.5 E9/L (02/10/18 18:46:00 EDT) Lymph Absolute: 1.9 E9/L (02/10/18 18:46:00 EDT) Martin Absolute: 0.5 E9/L (02/10/18 18:46:00 EDT) Eos Absolute: 0.1 E9/L (02/10/18 18:46:00 EDT) Basophil Absolute: 0.1 E9/L (02/10/18 18:46:00 EDT) Glucose Lvl: 191 mg/dL (02/10/18 18:46:00 EDT) BUN: 35 mg/dL High (02/10/18 18:46:00 EDT) Creatinine: 2.3 mg/dL High (02/10/18 18:46:00 EDT) eGFR: 24 mL/min/1.73 m2 Low (02/10/18 18:46:00 EDT) eGFR AA: 29 mL/min/1.73 m2 Low (02/10/18 18:46:00 EDT) BUN/Creat Ratio: 15 (02/10/18 18:46:00 EDT) Sodium Lvl: 134 mmol/L Low (02/10/18 18:46:00 EDT) Potassium Lvl: 4.1 mmol/L (02/10/18 18:46:00 EDT) Chloride: 101 mmol/L (02/10/18 18:46:00 EDT) CO2: 24 mmol/L (02/10/18 18:46:00 EDT) AGAP: 13 mEq/L (02/10/18 18:46:00 EDT) Calcium Lvl: 8.9 mg/dL (02/10/18 18:46:00 EDT) Alk Phos: 95 Int._Unit/L (02/10/18 18:46:00 EDT) ALT: 15 Int._Unit/L (02/10/18 18:46:00 EDT) AST: 21 Int._Unit/L (02/10/18 18:46:00 EDT) Total Protein: 6.8 gm/dL (02/10/18 18:46:00 EDT) Albumin Lvl: 3 gm/dL Low (02/10/18 18:46:00 EDT) Globulin: 3.8 gm/dL (02/10/18 18:46:00 EDT) A/G Ratio: 0.8 Low (02/10/18 18:46:00 EDT) Bili Total: 0.7 mg/dL (02/10/18 18:46:00 EDT) Bili Direct: 0.2 mg/dL (02/10/18 18:46:00 EDT) Bili Indirect: 0.5 mg/dL (02/10/18 18:46:00 EDT) Lipase Lvl: 14 unit/L (02/10/18 18:46:00 EDT) Diagnostic Results No qualifying data available. EKG Results February 10, 2018 at 1915 hours. Sinus tachycardia at 101 bpm. No acute ischemic changes. No ectopy. Result Comment: Electronically Signed By: Prosper Diaz DO\.br\Date and Time Signed: 02/10/18 19:35 EDT EMERGENCY DEPARTMENT Observed: 02/08/2018 Status: F Source: [place] SUMMARY 4:19 PM [facility] [place] Medical Records Department [address] [place] [address] Emergency Department Summary 02/08/18 1615 MR#: [id number] Acct: [id number] Name: BLOSSOMZINATESS Wilhelm Rep #: [id number] : 1980 37 From: Corona Galvez MD PCP: OUT OF TOWN DOCTOR Status: REG ER - ER Visit Summary Date of Service: 02/08/18 Chief Complaint: Nausea and vomiting History of Present Illness: The patient is a 37 F presenting with nausea and vomiting for the past 5-6 days. She had a partial nephrectomy on the left performed at [facility] on December 09. She was subsequently admitted here with a postoperative complication and had a wound VAC placed. She has been doing well from that standpoint and no longer has pain or symptoms related to the postoperative issue. She has however had continued nausea and vomiting with difficulty keeping fluids and food down since she was last hospitalized. No increased pain. No fever. No urinary symptoms. She has an appointment with her geophysical laboratory supervisor, Dr. Ricks, tomorrow. Physical Examination: Vitals are within normal limits. She is not in distress. Clinically, she does not appear significantly dehydrated. Abdomen is soft and nontender. Wound VAC site is clean and dry. Surrounding skin looks normal. She has no abdominal tenderness Test Results: Blood cell count is normal. Creatinine has improved markedly and is 2.46. Emergency Department Course and Treatment: He was given IV fluids and Zofran. On reexamination, she is feeling much better. Her nausea has resolved. She is eating a [employer] cheeseburger and Lao fries without difficulty. She no longer feels nauseated. She feels well and would prefer to go home. She states that she was mainly concerned that her creatinine is worse. She has an appointment with Dr. Ricks tomorrow. I discussed the case with Dr. Ricks who is comfortable at discharge home and keeping her appointment tomorrow. She will be prescribed dissolvable Zofran. She will return if worse. Treatment Plan: Zofran ODT as needed, see Dr. Ricks tomorrow. Disposition: Home stable Impression: Initial encounter mild dehydration, initial encounter nausea and vomiting-resolved, recent partial nephrectomy at outside hospital This note was generated with [employer] dictation software. It may contain incorrect words, spelling, and punctuation that were not noted in review of the chart prior to signing ED Disposition - Plan for ED Patient: Chief Complaint: Nausea/Vomiting Diagnosis: Hx of partial nephrectomy Instructions: ED Nausea Vomiting Prescriptions: Ondansetron [Zofran Odt] 4 mg PO TID PRN #20 tab.rapdis PRN Reason: Nausea Referrals: Briana Ricks DO [STAFF PHYSICIAN] - 1 Day What to do if you have Problems For any increased pain, shortness of breath, bleeding, nausea or vomiting, chest pain, or any unexpected problems, contact your Primary Care Provider. Call [facility] [employer] [facility] ([phone]) or report to the closest Emergency Room. Call 911 if necessary. 02/08/18 9819 <Electronically signed by Corona Galvez MD> Date Corona Galvez MD Cosigner Signature (If Indicated): Date CC: OUT OF TOWN DOCTOR CBC W/DIFF, AUTOMATED Collected: 02/08/2018 Status: F Source: [place] 2:15 PM [facility] [place] TYPE CODE TESTS RESULT OUT OF RANGE REFERENCE UNITS LAB L100.1000 4.4-11.0 K/mm3 Normal WBC 6.2 LAB L100.1200 4.2-5.4 M/mm3 Normal RBC 4.47 LAB L100.1300 12.0-15.0 g/dl Low HGB 11.8 LAB L100.1400 37-47 % Low HCT 36.5 LAB L100.1500 81-99 fL Normal MCV 81.7 LAB L100.1600 27.0-32.0 pg Low MCH 26.4 LAB L100.1700 32-36 g/gl Normal MCHC 32.3 LAB L100.1810 11.6-14.6 % Normal RDW CV 14.5 LAB L100.1820 35.1-43.9 fl Normal RDW SD 41.8 LAB L100.1900 150-450 K/mm3 Normal PLT 223 LAB L100.2000 6.2-12.0 fl Normal MPV 9.2 LAB L100.2100 47-70 % Normal NEUT% 64.8 LAB L100.2200 19-41 % Normal LY% 26.8 LAB L100.2300 0-10 % Normal MONO% 6.5 LAB L100.2400 0-5 % Normal EO% 1.6 LAB L100.2500 0-1 % Normal BASO% 0.3 LAB L100.2550 0.0-0.9 % Normal IM GRAN % 0.000 Result Comment: IG% - Immature Granulocytes (promyelocytes, myelocytes and metamyelocytes) > 1% indicates that a LEFT SHIFT is Present. LAB L100.2620 2.0-7.7 X10 3/uL Normal Absolute Neut 4.0 LAB L100.2720 0.83-4.51 X10 3/ul Normal Absolute Lymph 1.66 Performed By: #### L100.0100 #### [facility] [address] [place], [address] COMPREHENSIVE METABOLIC Collected: 02/08/2018 Status: F Source: [facility] 2:15 PM [facility] [place] [place] TYPE CODE TESTS RESULT OUT OF RANGE REFERENCE UNITS LAB L501.0100 74-106 mg/dL High GLU 162 Result Comment: Fasting Glucose result greater than or equal to 126 mg/dL suggests DIABETES MELLITUS per A.D.A. criteria. Please note revised GLUCOSE reference range effective 2017. LAB L501.1000 7-18 mg/dL High BUN 40 LAB L501.1100 0.55-1.02 mg/dL High CREAT,SERUM 2.46 Result Comment: The validity of the calculated GFR AND GFRAA in patients over 70 years has not been determined. Clinical correlation is essential. LAB L501.1110 >60 mL/min Low EST GFR 23 Result Comment: Non- GFR Calc LAB L501.1115 >60 mL/min Low EST GFR - AA 28 Result Comment: GFR Calc LAB L501.1255 ml/min Normal Estimated CRCL 27.90 LAB L501.1300 10-20 RATIO Normal BUN/CRE 16.3 LAB L501.1500 6.4-8. g/dL Normal 2 T PROT 7.3 LAB L501.1800 3.2-5. g/dL Low 0 ALB 2.7 LAB L501.1950 2.2-4. g/dL High 2 GLOB 4.6 LAB L501.2000 0.9-2. RATIO Low 4 A/G 0.6 LAB L501.2200 8.5-10 mg/dL Normal .1 CA 9.1 LAB L501.4100 15-37 U/L Low AST 11 LAB L501.4305 45-117 U/L Normal ALK P 111 LAB L501.4405 13-56 U/L Normal ALT 17 LAB L501.4600 0.20-1 mg/dL Normal .00 T BILI 0.40 LAB L501.5300 136-14 mmol/L Normal 5 NA 138 LAB L501.5600 3.5-5. mmol/L Normal 1 K 4.4 LAB L501.5900 98-107 mmol/L Normal CL 103 LAB L501.6100 21.0-3 mmol/L Normal 2.0 CO2 28.0 LAB L501.6200 5-15 Normal GAP 7 Performed By: #### L500.4050, L501.2450 #### [facility] [address] [place], [address] LIPASE Collected: 02/08/2018 Status: F Source: [place] 2:15 PM [facility] [place] TYPE CODE TESTS RESULT OUT OF REFERENCE UNITS RANGE LAB L501.2450 73-393 U/L Low LIPASE 40 Performed By: #### L500.4050, L501.2450 #### [facility] [address] [facility], [address] LACTIC ACID Collected: 02/08/2018 Status: F Source: [place] 2:15 PM [facility] [place] Order Comment: Yes/No query for Sepsis Lactate Rule Y TYPE CODE TESTS RESULT OUT OF RANGE REFERENCE UNITS LAB L503.6005 0.4-2.0 mmol/L Normal LACTIC ACID 1.0 Performed By: #### L503.6005 #### [facility] [address] [facility], [address] CONSULTATION Observed: 02/06/2018 Status: F Source: [place] 8:15 AM [facility] [place] [facility] Medical Records Department [address] [place] [address] Consultation 02/01/18 1351 MR#: [id number] Acct: [id number] Name: TESS HALL Rep #: [id number] : 1980 37 From: Briana Ricks DO PCP: OUT OF TOWN DOCTOR Status: DIS IN Y Location: MS3 LW336-3 Consultation - Renal 02/01/18 PCP/ Referring MD: Requesting physician: Dr Burt Primary care physician: Out of Town Doctor Reason for Consultation:: MITRA - History of Present Illness History of Present Illness: The patient is a 37 year old morbidly obese F who presented to [facility] on 01/30 for persistent nausea, vomiting since discharge from [facility] Main campus on 01/25. She underwent partial left nephrectomy in November 2017 for RCC. She had a renal mass since [address] scan that increase in size on repeat CT abdomen. She went for second opinion at [facility] for partial nephrectomy after she was told she needed a total unilateral nephrectomy by urology. She subsequently developed incisional drainage requiring I/D and received iv antibiotic therapy at [facility] then discharged to home on oral antibx on 01/25 with drsg changes done by her sister at home. She was discharged on keflex then switched to bactrim she took for 2 days prior to admit. She was told to stop taking it by her home nurse prior to admit. She continues to have drainage. Her incision is under her skin fold. She has a history of skin rash, hives on tylenol that she was given at [facility] and discharged on tylenol and oxycodone for pain. She denied fever, chills. Appetite has been poor. Admits to loose stools since admit. Denies abdominal pain. Denies urinary complaints. Consulted for MITRA. Creatnine normal at 0.85 on 01/25 prior to discharge from [facility]. Creatinine on admit 4.88 improved to 4.2 today with iv hydration. Urine output has been poor at home, increase in volume with iv hydration. PMH for HTN, DM2 on metformin, insulin at home.She has a history of frequent UTI's. Denied NSAID use. She did not want to go back to [facility]. - Allergies Allergies: Allergies acetaminophen [From Tylenol] Adverse Reaction (Severe, Verified 01/30/18 16:02) Hives clindamycin Adverse Reaction (Severe, Verified 01/30/18 16:02) Hives - Current Medications Current Medications: Current Medications Albuterol Sulfate (Ventolin Aerosols) 2.5 mg INHALATION Q4H PRN PRN PRN Reason: SOB AND /OR WHEEZING Albuterol/Ipratropium (Duoneb) 3 ml INHALATION Q6H.RT PRN PRN Reason: SOB AND /OR WHEEZING Dextrose (D50w Syringe) 0 gm IV X1 PRN; Protocol PRN Reason: Hypoglycemia Doxycycline Monohydrate (Doxycycline) 100 mg PO BID TATIANA Glucagon () 1 mg IM .X1 PRN PRN Reason: Hypoglycemia Heparin Sodium (Porcine) (Heparin Na) 5,000 unit SC Q8 TATIANA Last Admin: 02/01/18 05:35 Dose: 5,000 unit Insulin Human Lispro (Humalog Kwikpen (Bkc)) 0 unit SQ ACHS TATIANA; Protocol Last Admin: 02/01/18 11:46 Dose: Not Given Magnesium Hydroxide (Milk Of Magnesia) 30 ml PO DAILY PRN PRN PRN Reason: Constipation Metoclopramide HCl (Reglan) 10 mg IV Q8H PRN PRN PRN Reason: NAUSEA/VOMITING Last Admin: 02/01/18 09:39 Dose: 10 mg Nicotine (Nicoderm Cq (Pbkc)) 21 mg TRANSDERM. DAILY TATIANA Last Admin: 02/01/18 09:41 Dose: 21 mg Ondansetron HCl (Zofran) 4 mg IV Q6H PRN PRN PRN Reason: NAUSEA/VOMITING Last Admin: 01/31/18 08:24 Dose: 4 mg Prochlorperazine Edisylate (Compazine Iv) 5 - 10 mg IV Q6H PRN PRN PRN Reason: NAUSEA/VOMITING Last Admin: 01/31/18 13:14 Dose: 10 mg Sodium Chloride () 5 - 30 ml IV UD PRN PRN Reason: SALINE FLUSH Last Admin: 01/31/18 08:24 Dose: 10 ml - Past Medical History Past Medical History (Chronic Problems): Chronic Problems (Last Reviewed 01/31/18 @ 01:49 by Giancarlo Burt MD) Mass of left kidney (Chronic) - Past Surgical History Surgical History: - - Csection complicated by wound infection, tubal ligation, left partial nephrectomy for RCC - Social History Smoking Status: Current every day smoker - Family History Paternal Family History: Family History (Last Reviewed 01/31/18 @ 01:49 by Giancarlo Burt MD) Father Diabetes Uncle Cancer Grandmother Diabetes Maternal Family History: Family History (Last Reviewed 01/31/18 @ 01:49 by Giancarlo Burt MD) Father Diabetes Uncle Cancer Grandmother Diabetes History Items: Diabetes Review of Systems Constitutional: Reports: Anorexia, Weakness. Denies: Chills, Fever Cardiovascular: Denies: Chest Pain, Edema, Syncope Respiratory: Denies: Cough, Shortness of Breath Gastrointestinal: Reports: Nausea, Vomiting. Denies: Abdominal Pain, Constipation, Diarrhea Musculoskeletal: Denies: Back Pain, Joint swelling Skin: Reports: Wounds - incision drainage with open sites, - - multiple tattoos on arms, legs Neurological: Denies: Balance problems, Tremor, Seizures Psychiatric: Reports: Anxiety, Depression Hematologic/ Lymphatic: Denies: Petechiae Patient Problems: Active and Suspected Problems (Last Reviewed 01/31/18 @ 01:49 by Giancarlo Burt MD) MITRA (acute kidney injury) (Acute) Intractable nausea and vomiting (Acute) Surgical site infection (Acute) - Physical Exam General: Alert, Oriented x3, Cooperative, No apparent distress, - - morbidly obese HEENT: PERRLA, EOMI Oral: Dry Mucosa Neck: Supple, No JVD Lungs: Clear to auscultation Cardiovascular: Regular rate, No murmurs, No rub noted Abdomen: Bowel Sounds Present, Soft, Non Tender, Non-Distended, Obese Extremities: No edema Skin: - - multiple tattoo on legs, arms, open drainage of incision site under skin fold, no erythema Musculoskeletal: No Tenderness to Palpation of Joints or Extremities, No Muscle Wasting Neurological: Cranial nerves II-XII grossly intact Psych/Mental Status: Normal Affect, Appropriate, Alert and oriented to time, place, person, mood and affect Vital Signs Temp Pulse Resp BP Pulse Ox 97.7 F L 89 16 161/99 H 98 02/01/18 08:55 02/01/18 08:55 02/01/18 08:55 02/01/18 08:55 02/01/18 08:55 Oxygen Delivery Method Room Air Weight: 138.3 kg Body Mass Index (BMI) 50.7 Intake and Output for Last 24 Hours Intake Total 4445 / 4445 1142 / 1142 Output Total 1650 / 1650 900 / 900 Balance 2795 / 2795 242 / 242 Microbiology Past 72 Hours 01/31/18 03:04 Gram Stain - Final Wound - Open/Non-Healing Wound Wound Culture - Preliminary Laboratory Tests Past 24 Hrs WBC 6.4 RBC 3.70 L Hgb 9.7 L Hct 30.1 L MCV 81.4 MCH 26.2 L MCHC 32.2 RDW 14.0 POC Glucose POC Glucose 148 H 116 H 143 H POC Glucose 145 H Clinical Impression(s) from Imaging Studies Abdomen CT 02/01/18 12:52 IMPRESSION: Postsurgical changes from a partial nephrectomy in the left kidney. Small amount of loculated fluid adjacent to the left kidney which may represent a postoperative seroma. However, abscess cannot be excluded without contrast. Electronically Signed: Heather Benjamin, at 14:31 EDT Tel , Service support , Assessment/Plan All Active Problems (Last Reviewed 01/31/18 @ 01:49 by Giancarlo Burt MD) MITRA (acute kidney injury) (Acute) Intractable nausea and vomiting (Acute) Surgical site infection (Acute) 1. Acute renal failure prerenal event from dehydration vs intrinsic renal failure from antibiotics, metformin use in presence of renal failure. Creatinine improving with iv fluids. Urine output improving. No indication for EXECUTIVE CONSULTANT. Continue to hold metformin, bactrim. Avoid nephrotoxins. 2. Incisional drainage s/p partial open nephrectomy on left for cancer. Continue dressing changes. Afebrile without leukocytosis. 3. DM2 4. HTN add amlodipine 5. Morbid obesity 6. Renal cell cancer 7. Hx UTI/pyelonephritis 8. Await urine sodium, creatinine ordered since 01/30. 02/06/18 0815 <Electronically signed by Briana Ricks DO> Date Briana Ricks DO Cosigner Signature (if applicable): Date CC: Briana Ricks DO; Barbi Alfonso MD; OUT OF TOWN DOCTOR; Blaine Joseph MD Signed DISCHARGE SUMMARY Observed: 02/04/2018 Status: F Source: [place] 2:30 PM [facility] [place] [facility] Medical Records Department [address] [place] [address] [place] [address] Discharge Summary 02/04/18 1408 MR#: [id number] Acct: [id number] Name: TESS HALL Rep #: [id number] : 1980 37 From: Valentino Hernandez MD PCP: OUT OF TOWN DOCTOR Status: ADM IN Y Location: [facility]3 [id number] Discharge Date and Diagnosis - Problem List Patient Problems: Active and Suspected Problems (Last Reviewed 01/31/18 @ 01:49 by Giancarlo Burt MD) MITRA (acute kidney injury) (Acute) Intractable nausea and vomiting (Acute) Surgical site infection (Acute) Date of Admission: 01/30/18 Date of Discharge: 02/04/18 - Primary Discharge Diagnosis Active and Suspected Problems (Last Reviewed 01/31/18 @ 01:49 by Giancarlo Burt MD) MITRA (acute kidney injury) (Acute) Intractable nausea and vomiting (Acute) Surgical site infection (Acute) - Secondary Discharge Diagnosis Chronic Problems (Last Reviewed 01/31/18 @ 01:49 by Giancarlo Burt MD) Mass of left kidney (Chronic) Hospital Course and Treatment Imaging Results: CT Abd/Pelvis:IMPRESSION: Postsurgical changes from a partial nephrectomy in the left kidney. Small amount of loculated fluid adjacent to the left kidney which may represent a postoperative seroma. However, abscess cannot be excluded without contrast. Consultations 01/30/18 20:44 Consult: Onc/Wound/fire control technician b Routine Comment: ID Nephrology General Surgery Operations: - - I AND D with Wound Vac placement: The wound was cleansed with betadyne. The skin and subcutaneous tissues were infiltrated with 1% xylocaine with epinephrine. The patient had multiple small openings along her previous incision line. The bridges were incised to widely open the entire preivous incision site. Blunt dissection was done to widely open the wound in the deep soft tissues. The intraabdominal contents were intact (fascia was intact) The patient had a large amount of soft tissue and this made the wound deep, there was purulent fluid deep to the skin and this was drained. Wound vac was applied by the wound care nurse. Patient tolerated procedure well. Procedures: None Summary of Care Provided: Per HPI: The patient is a 37 year old F with a significant history of diabetes mellitus TYPE 2; Left kidney cancer status post nephrectomy who presents with 6 days of nausea and vomiting. Patient was at [facility] about a week ago. She spent about 1 day at [facility] and then she was sent to [facility]. Throughout her admission at these hospital she received antibiotics for infection at her left nephrectomy site. Since about the day 1 of receiving these antibiotics she has been having nausea and vomiting. Indeed patient reported that she was discharged from [facility] with nausea and vomiting. Associated with her symptoms is epigastric pain. She also has pain at the left nephrectomy site. Also she has a poor appetite. At her previous hospital stays she was on IV antibiotics. Recently she has also been on Keflex. Her Keflex was later changed to Bactrim. At the time of presentation patient was still on Bactrim but she reported that her home nurse told her not to take Bactrim on the day of her presentation. At emergency department she was found to have severely elevated creatinine above her baseline. Hospital Course: 1. Surgical site infection of left partial nephrectomy for renal ca/MITRA now likely ATN - She presented to the hospital with nausea, vomiting, and dehydration after several days of bactrim therapy. She had a left partial nephrectomy at the [facility] and discharged home with a wound infection that was to be treated initially with keflex and then transitioned to Bactrim when it was found to be MRSA. During her stay here she was switched to doxy because of the acute renal failure sustained from the dehydration and bactrim. Her creatinine peaked at around 4.5 and on the day of discharge was down to 3.56. On the day of discharge, she had her wound opened and cleaned by general surgery at the bedside and a wound vac was placed. She will have home health at discharge and will need to follow-up with the wound care clinic. 2. DM2/HTN - Her blood sugar while in the hospital was controlled well with a DM diet and SSI. She is to discontinue her metformin, glimepiride, and Byetta and only use her long acting insulin and those three are nephrotoxic and should be avoided until her renal function returns to baseline. she should continue the norvas for her blood pressure which was elevated to 150-160's. Once her creatinine is at baseline she should likely be started on an NOEMI-I or an ARB. 3. Her other diagnoses were evaluated and her home medications were continued where appropriate. Patient Problems: Active and Suspected Problems (Last Reviewed 01/31/18 @ 01:49 by Giancarlo Burt MD) MITRA (acute kidney injury) (Acute) Intractable nausea and vomiting (Acute) Surgical site infection (Acute) - Physical Exam Vital Signs Temp Pulse Resp BP Pulse Ox 98.3 F 94 16 138/80 H 98 02/04/18 08:47 02/04/18 08:47 02/04/18 08:47 02/04/18 08:47 02/04/18 08:47 Oxygen Delivery Method Room Air Weight: 304 lb 14.389 oz Body Mass Index (BMI) 50.7 Intake and Output for Last 24 Hours Intake Total 1120 / 1120 3150 / 3150 2300 / 2300 Output Total 500 / 500 1000 / 1000 500 / 500 Balance 620 / 620 2150 / 2150 1800 / 1800 Microbiology Past 72 Hours 01/31/18 03:04 Gram Stain - Final Laboratory Tests Past 24 Hrs WBC 5.8 RBC 4.07 L Hgb 10.6 L Hct 33.2 L MCV 81.6 MCH 26.0 L MCHC 31.9 L RDW 14.5 RDW Differential 43.0 POC Glucose POC Glucose 234 H 183 H 186 H POC Glucose 220 H Discharge Diet: Carb Control Diet Discharge Activity: No Restrictions Call your doctor if your incision/area has: Continuous Slow Oozing, Sudden Increased Bleeding, Increased Pain/ Swelling, Increased Redness, Foul Smelling Discharge Call your doctor if you observe: Fever of 101 or Higher, Shortness of breath Home Medications: Medications to take at Discharge Albuterol Inhaler [Ventolin Hfa] 2 puff INHALATION Q4H PRN PRN 08/07/17 Ipratropium/Albuterol Sulfate [Duoneb] 3 ml INHALATION Q6H.RT PRN 08/07/17 Ondansetron [Zofran Odt] 4 mg PO Q8H PRN PRN 08/07/17 Insulin Glargine,Hum.rec.anlog [Lantus] 20 unit SQ DAILY 01/30/18 Promethazine HCl 25 mg PO Q6H PRN 01/30/18 Amlodipine [Norvasc] 5 mg PO DAILY #30 tablet 02/04/18 Doxycycline 100 mg PO BID #20 capsule 02/04/18 Following Prescrptions Were Given to Patient: Amlodipine [Norvasc] 5 mg PO DAILY #30 tablet Doxycycline 100 mg PO BID #20 capsule Primary Care Physician: Care Physician,No Primary [NON-STAFF] - Please follow up with your Primary Care Physician in: in 3- 5 days Please Follow Up With: Wound Care Disposition: Home with Home Health Minutes spent on discharge:: 35 Patient Condition:: Good Medical Necessity - Tobacco Use Smoking Status: Current every day smoker Meaningful Use Info Meaningful Use Diagnoses (Choose all that apply): None applicable Code Visit Inpatient E AND M: 03703 Disch Hosp 02/04/18 1430 <Electronically signed by Valentino Hernandez MD> Date Valentino Hernandez MD Cosigner Signature (if applicable): Date CC: Valentino Hernandez MD; OUT OF TOWN DOCTOR Signed DISCHARGE INSTRUCTION Observed: 02/04/2018 Status: F Source: [place] 2:08 PM [facility] [place] [facility] Medical Records Department [address] [place] [id number] Instructions for Home/Discharge Instructions 02/04/18 1406 MR#: [id number] Acct: [id number] Name: TESS HALL Rep #: [id number] : 1980 37 From: Valentino Hernandez MD PCP: OUT OF TOWN DOCTOR Status: ADM IN - Discharge Diagnoses Current Active Problems: Current Active and Chronic Problems (Last Reviewed 01/31/18 @ 01:49 by Giancarlo Burt MD) MITRA (acute kidney injury) (Acute) Intractable nausea and vomiting (Acute) Surgical site infection (Acute) You will use the following diet at home:: Calorie/Carbohydrate Controlled (specify 1200, 1400, etc) Your food should be the consistency of: Regular Your liquids should be the consistency of: Regular/Thin Discharge Activity: No Restrictions Call your doctor if your incision/area has: Continuous Slow Oozing, Sudden Increased Bleeding, Increased Pain/ Swelling, Increased Redness, Foul Smelling Discharge Call your doctor if you observe: Fever of 101 or Higher, Shortness of breath Allergies/Adverse Reactions: Allergies acetaminophen [From Tylenol] Adverse Reaction (Severe, Verified 01/30/18 16:02) Hives clindamycin Adverse Reaction (Severe, Verified 01/30/18 16:02) Hives Medications to take at Discharge Metformin HCl [Glucophage] 500 mg PO BIDCM 06/06/14 Albuterol Inhaler [Ventolin Hfa] 2 puff INHALATION Q4H PRN PRN 08/07/17 Glipizide [Glucotrol] 10 mg PO BID 08/07/17 Ipratropium/Albuterol Sulfate [Duoneb] 3 ml INHALATION Q6H.RT PRN 08/07/17 Ondansetron [Zofran Odt] 4 mg PO Q8H PRN PRN 08/07/17 Exenatide Microspheres [Bydureon Pen] 2 mg SC QWEEK 01/30/18 Insulin Glargine,Hum.rec.anlog [Lantus] 20 unit SQ DAILY 01/30/18 Promethazine HCl 25 mg PO Q6H PRN 01/30/18 Amlodipine [Norvasc] 5 mg PO DAILY #30 tablet 02/04/18 Doxycycline 100 mg PO BID #20 capsule 02/04/18 The following prescriptions were given: Amlodipine [Norvasc] 5 mg PO DAILY #30 tablet Doxycycline 100 mg PO BID #20 capsule Primary Care Physician: Care Physician,No Primary [NON-STAFF] - Please follow up with your Primary Care Physician in: in 3- 5 days Test Results: Test results from this visit will be discussed in further detail at your follow-up appointment, if applicable. Please Follow Up With: Wound Care 02/04/18 140 <Electronically signed by Valentino Hernandez MD> Date Valentino Hernandez MD CC: Briana Ricks DO; Barbi Alfonso MD; OUT OF TOWN DOCTOR; Blaine Joseph MD OPERATIVE REPORT Observed: 02/04/2018 Status: F Source: [place] 1:46 PM [facility] [place] Medical Records Department [address] [place] [address] Operative Report 02/04/18 1254 MR#: [id number] Acct: [id number] Name: TESS HALL Rep #: [id number] : 1980 37 From: Barbi Alfonso MD PCP: OUT OF TOWN DOCTOR Status: ADM IN Y Location: [place] [address] Report of Operation Date of Procedure: 02/04/18 Pre-Operative Diagnosis: wound infection, incisional dehiscence Post-Operative Diagnosis: same Surgery/Procedure Performed:: incision and drainage of wound left torso Description of Surgical Findings:: Indications: Tess is a morbidly obese 37 y/o who is s/p partial left nephrectomy for renal cancer She presents with wound infection and drainage. Will plan widely opening wound to allow for adequate drainage and placement of wound vacuum. Wound was opened - deep wound present in soft tissue, however, intraabdominal contents intact. Type of Anesthesia:: IV Sedation - Moderate - given 2 mg versed IV and 4 mg morphine IV Anesthesiologist: Barbi Alfonso Specimen's removed: none Estimated Blood Loss (mL): < 5 ml Fluids Replaced: none Description of Procedure: After informed consent was obtained, the patient was lying in the right lateral decubitis position on her hospital bed. This was a bedside procedure. Appropriate time out protocol was followed. Patient given IV conscious sedation. The wound was cleansed with betadyne. The skin and subcutaneous tissues were infiltrated with 1% xylocaine with epinephrine. The patient had multiple small openings along her previous incision line. The bridges were incised to widely open the entire preivous incision site. Blunt dissection was done to widely open the wound in the deep soft tissues. The intraabdominal contents were intact (fascia was intact) The patient had a large amount of soft tissue and this made the wound deep, there was purulent fluid deep to the skin and this was drained. Wound vac was applied by the wound care nurse. Patient tolerated procedure well. - Complications none noted 02/04/18 1346 <Electronically signed by Barbi Alfonso MD> Date Barbi Alfonso MD CC: Briana Ricks DO; Barbi Alfonso MD; OUT OF TOWN DOCTOR; Blaine Joseph MD Signed CONSULTATION Observed: 02/04/2018 Status: F Source: [place] 1:45 PM [facility] [place] [facility] Medical Records Department [address] [place] [address] Consultation 02/03/18 1416 MR#: [id number] Acct: [id number] Name: TESS HALL Rep #: [id number] : 1980 37 From: Barbi Alfonso MD PCP: OUT OF TOWN DOCTOR Status: ADM IN Y Location: [facility]3 [id number] - Consult Date of Consult: 02/03/18 - Reason for Consult I was asked to see Tess for left torso wound by the hospitalist service. 37 year old female s/p Left open partial nephrectomy 12/09/2017 She had complaint of left torso pain postoperatively. She developed a soft tissue abscess with large amount of drainage. In the EPIC notes, there is a note regarding bedside procedure for incision and drainage of this site, but patient states that it was never done. She was admitted to [facility] for nausea/emesis and MITRA. She had been on antibiotics for treatment of the above. I have reviewed the CT scan - no actual abscess noted, but large amount of soft tissue inflammation and incision site. PAST MEDICAL HISTORY Depression DM2 (diabetes mellitus, type 2) (HCC) HLD (hyperlipidemia) Hx of acute pyelonephritis Morbid obesity (HCC) Reactive airway disease Smoker Renal cell cancer of left kidney PAST SURGICAL HISTORY: SECTION HX 2006 tUBAL LIGATION HX 2006 Partial left nephrectomy December 09 2017 MEDICATIONS: Metformin HCl [Glucophage] 500 mg PO BIDCM 06/06/14 Albuterol Inhaler [Ventolin Hfa 2 puff INHALATION Q4H PRN PRN 08/07/17 Glipizide [Glucotrol] 10 mg PO BID 08/07/17 Ipratropium/Albuterol Sulfate 3 ml INHALATION Q6H.RT PRN 08/07/17 Ondansetron [Zofran Odt] 4 mg PO Q8H PRN PRN 08/07/17 Exenatide Microspheres [Bydureon 2 mg SC QWEEK 01/30/18 Insulin Glargine,Hum.rec.anlog 20 unit SQ DAILY 01/30/18 Promethazine HCl 25 mg PO Q6H PRN 01/30/18 Sulfamethoxazole/Trimethoprim 1 each PO BID 01/30/18 Allergies: acetaminophen, clindamycin Review of systems: General: has subjective temperature elevation, complains of increased tiredness. Neuro: No history of TIA's, stroke, BENCH TECHNICIAN tumor, impaired sensorium, hemiplegia, paraplegia or quadriplegia. No neurological symptoms or problems. Respiratory: Asthma - uses albuterol inhaler nearly daily, not on controller meds. Denies BECKER Cardiovascular: No history of HTN requiring medication, no history of angina, CHF, IA, cardiac surgery or stents. Denies rest pain, gangrene or revascularization/amputation for PVD. No history of cardiovascular symptoms or problems. GI: has abdominal pain, No history of GI symptoms or problems. No history of esophageal varices, recent ascites, or ETOH greater than 2 drinks per day. : s/p kidney surgery, has pain at operative site, denies recent UTIs TRANSCRIPTION: LMP - 11/20/17 Endocrine: T2DM - on glargine + oral agents, no known complications. Denies steroid use in the last 3mo. Hematology: No history of bleeding or clotting disorder. No history of hematological symptoms or problems. Oncology: history of renal cancer Derm: has open draining wound Psych: Anxiety, Depression PHYSICAL EXAM VITALS: BP 132/86 Pulse 94 Temp (Src) 98.4 (Oral) Ht 5' 5 (1.65m) Wt 333 lb (151.0kg) SpO2 99% BMI 55.41 kg/(m General: Alert and oriented, Morbidly obese Skin: Normal color, no rash, no lesions. Neck: no palpable masses or LNs Cardiovascular: Normal S1 AND S2, no rubs, murmurs or gallops. No JVD. Pulse regular. Lungs: Normal breath sounds, no wheezes or crackles. Abdomen: soft and benign and obese, difficult to determine if any masses due to body habitus, has open draining wound of lateral torso Extremities: No deformity, no edema or tenderness, no joint swelling or clubbing. Neurological: Normal cognition and motor skills. Impression: postoperative wound from left partial nephrectomy site morbid obesity complicating above Discussion/Plan: I have discussed the above with the patient. I have reviewed the CT scan. Will trial wound vac, I will open the wound wider to allow for placement of this, I have discussed with Darling the wound care nurse. This can be done with local anesthesia with moderate sedation by the bedside. Patient is amenable to this. I have explained the procedure to the patient. I have counseled the patient as to the risks of the procedure, including but not limited to: infection, bleeding, injury to any blood vessels/nerves, scar tissue, persistent wound problems, etc. the patient understands. Will proceed tomorrow. I have answered all questions to the patient s satisfaction and the patient has no further questions. 02/04/18 1345 <Electronically signed by Barbi Alfonso MD> Date Barbi Alfonso MD Cosigner Signature (if applicable): Date CC: Briana Ricks DO; Barbi Alfonso MD; OUT OF TOWN DOCTOR; Blaine Joseph MD Signed BEDSIDE GLUCOSE Collected: 02/04/2018 Status: F Source: [place] 11:39 AM [facility] [place] TYPE CODE TESTS RESULT OUT OF REFERENCE UNITS RANGE LAB L501.080 70-110 mg/dL High BEDSIDE GLU 234 Result Comment: MANAGEMENT OF PATIENT CARE PER NURSING PROTOCOL Performed By: #### L501.080 #### [facility] Point of Care [facility] [place] [address] RENAL PROFILE Collected: 02/04/2018 Status: F Source: [place] 7:25 AM [facility] [place] TYPE CODE TESTS RESULT OUT OF RANGE REFERENCE UNITS LAB L501.0100 74-106 mg/dL High GLU 183 Result Comment: Fasting Glucose result greater than or equal to 126 mg/dL suggests DIABETES MELLITUS per A.D.A. criteria. Please note revised GLUCOSE reference range effective 2017. LAB L501.1000 7-18 mg/dL High BUN 38 LAB L501.1100 0.55-1.02 mg/dL High CREAT,SERUM 3.65 Result Comment: The validity of the calculated GFR AND GFRAA in patients over 70 years has not been determined. Clinical correlation is essential. LAB L501.1110 >60 mL/min Low EST GFR 15 Result Comment: Non- GFR Calc LAB L501.1115 >60 mL/min Low EST GFR - AA 18 Result Comment: GFR Calc LAB L501.1255 ml/min Normal Estimated CRCL 18.80 LAB L501.1300 10-20 RATIO Normal BUN/CRE 10.4 LAB L501.1800 3.2-5. g/dL Low 0 ALB 2.3 LAB L501.2200 8.5-10 mg/dL Normal .1 CA 8.8 LAB L501.2300 2.5-4. mg/dL Normal 9 PHOS 3.9 LAB L501.5300 136-14 mmol/L Normal 5 NA 137 LAB L501.5600 3.5-5. mmol/L Normal 1 K 4.4 LAB L501.5900 98-107 mmol/L Normal CL 103 LAB L501.6100 21.0-3 mmol/L Normal 2.0 CO2 24.0 Performed By: #### L500.3600 #### [facility] [address] [facility] [place], [place], [address] CBC W/DIFF, AUTOMATED Collected: 02/04/2018 Status: F Source: [place] 7:25 AM [facility] [place] TYPE CODE TESTS RESULT OUT OF RANGE REFERENCE UNITS LAB L100.1000 4.4-11.0 K/mm3 Normal WBC 5.8 LAB L100.1200 4.2-5.4 M/mm3 Low RBC 4.07 LAB L100.1300 12.0-15.0 g/dl Low HGB 10.6 LAB L100.1400 37-47 % Low HCT 33.2 LAB L100.1500 81-99 fL Normal MCV 81.6 LAB L100.1600 27.0-32.0 pg Low MCH 26.0 LAB L100.1700 32-36 g/gl Low MCHC 31.9 LAB L100.1810 11.6-14.6 % Normal RDW CV 14.5 LAB L100.1820 35.1-43.9 fl Normal RDW SD 43.0 LAB L100.1900 150-450 K/mm3 Normal PLT 210 LAB L100.2000 6.2-12.0 fl Normal MPV 9.0 LAB L100.2100 47-70 % Normal NEUT% 63.4 LAB L100.2200 19-41 % Normal LY% 27.3 LAB L100.2300 0-10 % Normal MONO% 6.2 LAB L100.2400 0-5 % Normal EO% 2.8 LAB L100.2500 0-1 % Normal BASO% 0.3 LAB L100.2550 0.0-0.9 % Normal IM GRAN % 0.000 Result Comment: IG% - Immature Granulocytes (promyelocytes, myelocytes and metamyelocytes) > 1% indicates that a LEFT SHIFT is Present. LAB L100.2620 2.0-7.7 X10 3/uL Normal Absolute Neut 3.7 LAB L100.2720 0.83-4.51 X10 3/ul Normal Absolute Lymph 1.58 Performed By: #### L100.0100 #### [facility] [address] [place] [id number] BEDSIDE GLUCOSE Collected: 02/04/2018 Status: F Source: [place] 6:37 AM [facility] [place] TYPE CODE TESTS RESULT OUT OF REFERENCE UNITS RANGE LAB L501.080 70-110 mg/dL High BEDSIDE GLU 183 Result Comment: MANAGEMENT OF PATIENT CARE PER NURSING PROTOCOL Performed By: #### L501.080 #### [facility] Point of Care [address] [place], [place] [id number] BEDSIDE GLUCOSE Collected: 02/03/2018 Status: F Source: [place] 9:05 PM [facility] [place] TYPE CODE TESTS RESULT OUT OF REFERENCE UNITS RANGE LAB L501.080 70-110 mg/dL High BEDSIDE GLU 186 Result Comment: MANAGEMENT OF PATIENT CARE PER NURSING PROTOCOL Performed By: #### L501.080 #### [facility] Point of Care [address] [place] [address] BEDSIDE GLUCOSE Collected: 02/03/2018 Status: F Source: [place] 4:21 PM [facility] [place] TYPE CODE TESTS RESULT OUT OF REFERENCE UNITS RANGE LAB L501.080 70-110 mg/dL High BEDSIDE GLU 220 Result Comment: MANAGEMENT OF PATIENT CARE PER NURSING PROTOCOL Performed By: #### L501.080 #### [facility] Point of Care [address] [place] [address] BEDSIDE GLUCOSE Collected: 02/03/2018 Status: F Source: [place] 11:28 AM [facility] [place] TYPE CODE TESTS RESULT OUT OF REFERENCE UNITS RANGE LAB L501.080 70-110 mg/dL High BEDSIDE GLU 253 Result Comment: MANAGEMENT OF PATIENT CARE PER NURSING PROTOCOL Performed By: #### L501.080 #### [facility] Point of Care [address] [place] [address] BEDSIDE GLUCOSE Collected: 02/03/2018 Status: F Source: [place] 6:23 AM [facility] [place] TYPE CODE TESTS RESULT OUT OF REFERENCE UNITS RANGE LAB L501.080 70-110 mg/dL High BEDSIDE GLU 178 Result Comment: MANAGEMENT OF PATIENT CARE PER NURSING PROTOCOL Performed By: #### L501.080 #### [facility] Point of Care [address] [place] [address] BEDSIDE GLUCOSE Collected: 02/02/2018 Status: F Source: [place] 9:57 PM [facility] [facility] REPOSITORY TYPE CODE TESTS RESULT OUT OF REFERENCE UNITS RANGE LAB L501.080 70-110 mg/dL High BEDSIDE GLU 230 Result Comment: MANAGEMENT OF PATIENT CARE PER NURSING PROTOCOL Performed By: #### L501.080 #### [facility] Point of Care [address] [place] [address] BEDSIDE GLUCOSE Collected: 02/02/2018 Status: F Source: [place] 4:29 PM [facility] [place] TYPE CODE TESTS RESULT OUT OF REFERENCE UNITS RANGE LAB L501.080 70-110 mg/dL High BEDSIDE GLU 175 Result Comment: MANAGEMENT OF PATIENT CARE PER NURSING PROTOCOL Performed By: #### L501.080 #### [facility] Point of Care [address] [place] [address] BEDSIDE GLUCOSE Collected: 02/02/2018 Status: F Source: [place] 11:31 AM [facility] [place] [facility] TYPE CODE TESTS RESULT OUT OF REFERENCE UNITS RANGE LAB L501.080 70-110 mg/dL High BEDSIDE GLU 182 Result Comment: MANAGEMENT OF PATIENT CARE PER NURSING PROTOCOL Performed By: #### L501.080 #### [facility] Point of Care [address] [place], [place] [id number] URINALYSIS, COMPLETE Collected: 02/02/2018 Status: F Source: [place] 10:25 AM [facility] [place] [facility] Order Comment: How was Urine Obtained? CLEAN CATCH TYPE CODE TESTS RESULT OUT OF RANGE REFERENCE UNITS LAB L400.3000 Yellow COLOR Normal Yellow LAB L400.3050 Clear Normal CLARITY Clear LAB L400.3200 Normal mg/dl Normal GLUCOSE, UR Normal LAB L400.3300 Negative mg/dL Normal BILIRUBIN URINE Negative LAB L400.3400 Negative mg/dl Normal KETONE UR Negative LAB L400.3465 1.002-1.030 Normal SP.GR. DIPSTX 1.010 LAB L400.3550 5.0 - 8.0 pH UR Normal 6.5 LAB L400.3600 Negative mg/dl High PROT 15 DIPSTX LAB L400.3700 Normal mg/dl Normal UROBILI Normal LAB L400.3750 Negative Normal NITRITE UR Negative LAB L400.3780 Negative /ul High 25 OCCULT BLOOD-UR LAB L400.3800 Negative /ul High LEUK 25 ESTERASE LAB L400.4050 0-5 /hpf WBC 0 Normal SEEN LAB L400.4100 0-5 /hpf Normal RBC-UA 0-5 SEEN LAB L400.4150 5-10 /hpf SQUAM Normal EPI 0-5 SEEN LAB L400.4300 None Seen /hpf Normal BACTERIA RARE LAB L400.4350 <or=2+ /hpf 0 Normal MUCUS, URINE SEEN Performed By: #### L400.0001 #### [facility] [address] [place], [place], [id number] CREATININE, URINE Collected: 02/02/2018 Status: F Source: [place] ([place]) 10:25 AM [facility] [place] [facility] TYPE CODE TESTS RESULT OUT OF RANGE REFERENCE UNITS LAB L501.1200 NO RANGE EST. mg/dL Normal UR CREAT 29.60 Performed By: #### L501.1200 #### [facility] [address] [place], [address] PROTEIN, URINE Collected: 02/02/2018 Status: F Source: [place] ([place]) 10:25 AM [facility] [place] [facility] TYPE CODE TESTS RESULT OUT OF RANGE REFERENCE UNITS LAB L501.1930 <11.9 mg/dL High 15.9 PROTEIN,UR.R AN. Performed By: #### L501.1930 #### [facility] [address] [place], [address] URINE SODIUM Collected: 02/02/2018 Status: F Source: [place] 10:25 AM [facility] [place] [facility] TYPE CODE TESTS RESULT OUT OF RANGE REFERENCE UNITS LAB L501.5500 Not Establ. mmol/L Normal UR NA 71 Performed By: #### L501.5500 #### [facility] [address] [place], [address] BEDSIDE GLUCOSE Collected: 02/02/2018 Status: F Source: [place] 6:01 AM [facility] [place] [facility] TYPE CODE TESTS RESULT OUT OF REFERENCE UNITS RANGE LAB L501.080 70-110 mg/dL High BEDSIDE GLU 148 Result Comment: MANAGEMENT OF PATIENT CARE PER NURSING PROTOCOL Performed By: #### L501.080 #### [facility] Point of Care [address] [place] [address] RENAL PROFILE Collected: 02/02/2018 Status: F Source: [place] 5:28 AM [facility] [place] [facility] TYPE CODE TESTS RESULT OUT OF RANGE REFERENCE UNITS LAB L501.0100 74-106 mg/dL High GLU 148 Result Comment: Fasting Glucose result greater than or equal to 126 mg/dL suggests DIABETES MELLITUS per A.D.A. criteria. Please note revised GLUCOSE reference range effective 2017. LAB L501.1000 7-18 mg/dL High BUN 25 LAB L501.1100 0.55-1.02 mg/dL High CREAT,SERUM 4.07 Result Comment: The validity of the calculated GFR AND GFRAA in patients over 70 years has not been determined. Clinical correlation is essential. LAB L501.1110 >60 mL/min Low EST GFR 13 Result Comment: Non- GFR Calc LAB L501.1115 >60 mL/min Low EST GFR - AA 16 Result Comment: GFR Calc LAB L501.1255 ml/min Normal Estimated CRCL 16.86 LAB L501.1300 10-20 RATIO Low BUN/CRE 6.1 LAB L501.1800 3.2-5. g/dL Low 0 ALB 2.0 LAB L501.2200 8.5-10 mg/dL Low .1 CA 8.3 LAB L501.2300 2.5-4. mg/dL Normal 9 PHOS 4.3 LAB L501.5300 136-14 mmol/L Normal 5 NA 137 LAB L501.5600 3.5-5. mmol/L Normal 1 K 4.2 LAB L501.5900 98-107 mmol/L Normal CL 105 LAB L501.6100 21.0-3 mmol/L Normal 2.0 CO2 26.0 Performed By: #### L500.3600 #### [facility] [address] [place], [place], [id number] BEDSIDE GLUCOSE Collected: 02/01/2018 Status: F Source: [place] 11:35 PM [facility] [place] [facility] TYPE CODE TESTS RESULT OUT OF REFERENCE UNITS RANGE LAB L501.080 70-110 mg/dL High BEDSIDE GLU 127 Result Comment: MANAGEMENT OF PATIENT CARE PER NURSING PROTOCOL Performed By: #### L501.080 #### [facility] Point of Care [address] [facility] [address] BEDSIDE GLUCOSE Collected: 02/01/2018 Status: F Source: [place] 9:34 PM [facility] [place] [facility] TYPE CODE TESTS RESULT OUT OF REFERENCE UNITS RANGE LAB L501.080 70-110 mg/dL High BEDSIDE GLU 154 Result Comment: MANAGEMENT OF PATIENT CARE PER NURSING PROTOCOL Performed By: #### L501.080 #### [facility] Point of Care [address] [facility] [address] BEDSIDE GLUCOSE Collected: 02/01/2018 Status: F Source: [place] 4:47 PM [facility] [place] [facility] TYPE CODE TESTS RESULT OUT OF REFERENCE UNITS RANGE LAB L501.080 70-110 mg/dL High BEDSIDE GLU 136 Result Comment: MANAGEMENT OF PATIENT CARE PER NURSING PROTOCOL Performed By: #### L501.080 #### [facility] Point of Care [address] [place] [address] URINE Collected: 02/01/2018 Status: F Source: [place] 2:30 PM [facility] [place] [facility] TYPE CODE TESTS RESULT OUT OF RANGE REFERENCE UNITS LAB L3100.6600 . % No Normal EOS CT Eosinophils Seen [id number] Result Comment: <5% few or none seen Performed at: - [facility] [address] [id number] Occupational Health Coordinator: Baljinder Crespo PhD, Phone: [phone] Performed By: #### L3100.6600 #### [facility] (refer to report for specific site) refer to report for address and phone number CONSULTATION Observed: 02/01/2018 Status: F Source: [place] 1:01 PM [facility] [place] [facility] [facility] Medical Records Department [address] [place] [address] Consultation 02/01/18 1254 MR#: [id number] Acct: [id number] Name: TESS HALL Rep #: [id number] : 1980 37 From: Blaine Joseph MD PCP: OUT OF TOWN DOCTOR Status: ADM IN Y [id number] ADDENDUM by Blaine Joseph MD on 02/01/18 at 1301 Will order UA and Ueos. 02/01/18 1301 <Electronically signed by Blaine Joseph MD> Date Blaine Joseph MD cc: Briana Ricks DO; OUT OF TOWN DOCTOR; Blaine Joesph MD * Signed Problem List (1) Surgical site infection Status: Acute Reason for Consult: abscess Consulted by: Dr. Hernandez History of Present Illness: The patient is a 37 year old F with recent L nephrectomy at [facility] complicated by MRSA abscess post-op requiring re-admission and I AND D. Discharged on keflex with packing in place, sister has been helping with wound. Keflex was changed to bactrim this past week and she over the next few days had progressive n/v, weakness, not feeling well. Wound relatively stable, but still some soreness and 2 new pinhole openings. Found to have Cr over 4, admitted, given dapto, cipro, flagyl, then changed to cefepime. Full ROS performed and neg except as noted above. - Medical History Past Medical History (Chronic Problems): Chronic Problems (Last Reviewed 01/31/18 @ 01:49 by Giancarlo Burt MD) Mass of left kidney (Chronic) Allergies/Adverse Reactions: Allergies acetaminophen [From Tylenol] Adverse Reaction (Severe, Verified 01/30/18 16:02) Hives clindamycin Adverse Reaction (Severe, Verified 01/30/18 16:02) Hives Home Medications: Ambulatory Orders Medication Instructions Recorded - Social History Tobacco Use: cigarettes Vital Signs Temp Pulse Resp BP Pulse Ox 99 F 85 16 163/87 H 96 02/01/18 05:28 02/01/18 05:28 02/01/18 05:28 02/01/18 05:28 02/01/18 07:15 Oxygen Delivery Method Room Air Weight: 138.3 kg Body Mass Index (BMI) 50.7 Microbiology Past 72 Hours 01/31/18 03:04 Gram Stain - Final Wound - Open/Non-Healing Wound Wound Culture - Preliminary Laboratory Tests Past 24 Hrs WBC 6.4 RBC 3.70 L Hgb 9.7 L Hct 30.1 L MCV 81.4 MCH 26.2 L MCHC 32.2 RDW 14.0 - Other Studies Radiology: [] reviewed Other Studies: [] Route of nutrition/ use of supplements: [] Nutritional Intake: [] IV Site: [] Serrano Catheter: [] - Physical Exam General: Alert, Oriented x3, Cooperative, No apparent distress HEENT: Atraumatic, PERRLA, EOMI Neck: Supple, No Nodes Lungs: Clear to auscultation, Normal air movement Cardiovascular: Regular rate, Regular Rhythm Abdomen: Soft, Non Tender, Non-Distended Extremities: Edema Skin: Incision - L side abd incision with packing in place, mild drainage, no redness. IV Site: Peripheral, without redness Musculoskeletal: No Tenderness to Palpation of Joints or Extremities Neurological: Cranial nerves II-XII grossly intact - Assessment/Plan Antibiotics: [] Assessment/Plan: [] Active and Suspected Problems (Last Reviewed 01/31/18 @ 01:49 by Giancarlo Burt MD) MITRA (acute kidney injury) (Acute) Intractable nausea and vomiting (Acute) MITRA - neph consulted. Suspect bactrim as cause. MRSA surgical site infection s/p L nephrectomy - will check CT to look for any residual deeper collections. Reviewed [facility] cxs, will cover with doxy for now. Stop cefepime. Cx here pending. No fever, normal wbc. Will follow, thank you. 02/01/18 1259 <Electronically signed by Blaine Joseph MD> Date Blaine Joseph MD Cosigner Signature (if applicable): Date CC: Briana Ricks DO; OUT OF TOWN DOCTOR; Blaine Joesph MD Signed ABDOMEN WITHOUT IV Observed: 02/01/2018 Status: F Source: [place] CONTRAST 12:54 PM [facility] [place] [facility] Imaging Services [address] [place] [address] Abdomen without IV Contrast MR#: [id number] Acct: [id number] Name: TESS HALL Rep #: [id number] : 1980 F 37 From: Heather Benjamin MD PCP: OUT OF TOWN DOCTOR Status: ADM IN Study: Abdomen without IV Contrast Date of Exam: 02/01/18 Exam# [id number] Ordering Dr: Blaine Joseph MD STUDY: CT ABDOMEN WITHOUT CONTRAST REASON FOR EXAM: Female, 37 years old. Pain. History of partial nephrectomy and abscess. RADIATION DOSAGE (If Supplied By Facility): CTDIvol = ( 17.58 ) mGy, DLP = ( 647.15 ) mGycm TECHNIQUE: Transaxial images were obtained without intravenous contrast, and without oral contrast. Sagittal and coronal images were reconstructed. Individualized dose optimization techniques were used for this CT. COMPARISON: None. FINDINGS: The visualized lung bases are unremarkable. The visualized portions of the heart are within normal limits. There are also gallstones present. The liver, spleen, pancreas, adrenal glands and right kidney demonstrate an unremarkable unenhanced appearance. There are postsurgical changes from a partial defect in the left kidney. There is a small amount of adjacent loculated fluid. This may represent a postoperative seroma. However, abscess cannot be excluded without contrast. The visualized bowel demonstrates no evidence of obstruction. The aorta is normal in caliber. There are no destructive osseous lesions. CT/Abdomen without IV Contrast IMPRESSION: Postsurgical changes from a partial nephrectomy in the left kidney. Small amount of loculated fluid adjacent to the left kidney which may represent a postoperative seroma. However, abscess cannot be excluded without contrast. Electronically Signed: Heather Romeroesthermeron, at 14:31 EDT Tel , Service support , CC: OUT OF TOWN DOCTOR; Blaine Joseph MD [employer] Operator: Signed BEDSIDE GLUCOSE Collected: 02/01/2018 Status: F Source: [place] 11:46 AM [facility] [place] TYPE CODE TESTS RESULT OUT OF REFERENCE UNITS RANGE LAB L501.080 70-110 mg/dL High BEDSIDE GLU 148 Result Comment: MANAGEMENT OF PATIENT CARE PER NURSING PROTOCOL Performed By: #### L501.080 #### [facility] Point of Care [facility] [place] [address] BASIC METABOLIC Collected: 02/01/2018 Status: F Source: [place] PROFILE (BMP) 6:45 AM [facility] [place] TYPE CODE TESTS RESULT OUT OF RANGE REFERENCE UNITS LAB L501.0100 74-106 mg/dL High GLU 126 Result Comment: Fasting Glucose result greater than or equal to 126 mg/dL suggests DIABETES MELLITUS per A.D.A. criteria. Please note revised GLUCOSE reference range effective 2017. LAB L501.1000 7-18 mg/dL High BUN 29 LAB L501.1100 0.55-1.02 mg/dL High CREAT,SERUM 4.27 Result Comment: The validity of the calculated GFR AND GFRAA in patients over 70 years has not been determined. Clinical correlation is essential. LAB L501.1110 >60 mL/min Low EST GFR 12 Result Comment: Non- GFR Calc LAB L501.1115 >60 mL/min Low EST GFR - AA 15 Result Comment: GFR Calc LAB L501.1255 ml/min Normal Estimated CRCL 16.07 LAB L501.1300 10-20 RATIO Low BUN/CRE 6.8 LAB L501.2200 8.5-10 mg/dL Low .1 CA 8.3 LAB L501.5300 136-14 mmol/L Normal 5 NA 139 LAB L501.5600 3.5-5. mmol/L Normal 1 K 4.0 LAB L501.5900 98-107 mmol/L Normal CL 103 LAB L501.6100 21.0-3 mmol/L Normal 2.0 CO2 23.0 LAB L501.6200 5-15 Normal GAP 13 Performed By: #### L500.2500 #### [facility] [address] [place], [place] [address]giov[place]. [place], [place], [address] CBC W/DIFF, AUTOMATED Collected: 02/01/2018 Status: F Source: [place] 6:45 AM [facility] [place] [facility] TYPE CODE TESTS RESULT OUT OF RANGE REFERENCE UNITS LAB L100.1000 4.4-11.0 K/mm3 Normal WBC 6.4 LAB L100.1200 4.2-5.4 M/mm3 Low RBC 3.70 LAB L100.1300 12.0-15.0 g/dl Low HGB 9.7 LAB L100.1400 37-47 % Low HCT 30.1 LAB L100.1500 81-99 fL Normal MCV 81.4 LAB L100.1600 27.0-32.0 pg Low MCH 26.2 LAB L100.1700 32-36 g/gl Normal MCHC 32.2 LAB L100.1810 11.6-14.6 % Normal RDW CV 14.0 LAB L100.1820 35.1-43.9 fl Normal RDW SD 40.3 LAB L100.1900 150-450 K/mm3 Normal PLT 225 LAB L100.2000 6.2-12.0 fl Normal MPV 9.4 LAB L100.2100 47-70 % High NEUT% 73.2 LAB L100.2200 19-41 % Low LY% 16.0 LAB L100.2300 0-10 % Normal MONO% 7.8 LAB L100.2400 0-5 % Normal EO% 2.5 LAB L100.2500 0-1 % Normal BASO% 0.3 LAB L100.2550 0.0-0.9 % Normal IM GRAN % 0.200 Result Comment: IG% - Immature Granulocytes (promyelocytes, myelocytes and metamyelocytes) > 1% indicates that a LEFT SHIFT is Present. LAB L100.2620 2.0-7.7 X10 3/uL Normal Absolute Neut 4.7 LAB L100.2720 0.83-4.51 X10 3/ul Normal Absolute Lymph 1.03 Performed By: #### L100.0100 #### [facility] [address] [place], [address] BEDSIDE GLUCOSE Collected: 02/01/2018 Status: F Source: [place] 5:38 AM [facility] [place] [facility] TYPE CODE TESTS RESULT OUT OF REFERENCE UNITS RANGE LAB L501.080 70-110 mg/dL High BEDSIDE GLU 116 Result Comment: MANAGEMENT OF PATIENT CARE PER NURSING PROTOCOL Performed By: #### L501.080 #### [facility] Point of Care [address] [place] [address] BEDSIDE GLUCOSE Collected: 01/31/2018 Status: F Source: [place] 10:16 PM [facility] [place] [facility] TYPE CODE TESTS RESULT OUT OF REFERENCE UNITS RANGE LAB L501.080 70-110 mg/dL High BEDSIDE GLU 143 Result Comment: MANAGEMENT OF PATIENT CARE PER NURSING PROTOCOL Performed By: #### L501.080 #### [facility] Point of Care [address] [place] [address] BEDSIDE GLUCOSE Collected: 01/31/2018 Status: F Source: [place] 4:53 PM [facility] [place] [facility] TYPE CODE TESTS RESULT OUT OF REFERENCE UNITS RANGE LAB L501.080 70-110 mg/dL High BEDSIDE GLU 145 Result Comment: MANAGEMENT OF PATIENT CARE PER NURSING PROTOCOL Performed By: #### L501.080 #### [facility] Point of Care [address] [place] [address] BEDSIDE GLUCOSE Collected: 01/31/2018 Status: F Source: [place] 11:05 AM [facility] [place] [facility] TYPE CODE TESTS RESULT OUT OF REFERENCE UNITS RANGE LAB L501.080 70-110 mg/dL High BEDSIDE GLU 149 Result Comment: MANAGEMENT OF PATIENT CARE PER NURSING PROTOCOL Performed By: #### L501.080 #### [facility] Point of Care [address] [place] [address] BEDSIDE GLUCOSE Collected: 01/31/2018 Status: F Source: [place] 6:55 AM [facility] [place] [facility] TYPE CODE TESTS RESULT OUT OF REFERENCE UNITS RANGE LAB L501.080 70-110 mg/dL High BEDSIDE GLU 111 Result Comment: MANAGEMENT OF PATIENT CARE PER NURSING PROTOCOL Performed By: #### L501.080 #### [facility] Point of Care [address] [place] [address] CBC W/DIFF, AUTOMATED Collected: 01/31/2018 Status: F Source: [place] 5:34 AM [facility] [place] [facility] TYPE CODE TESTS RESULT OUT OF RANGE REFERENCE UNITS LAB L100.1000 4.4-11.0 K/mm3 Normal WBC 6.3 LAB L100.1200 4.2-5.4 M/mm3 Low RBC 3.69 LAB L100.1300 12.0-15.0 g/dl Low HGB 9.7 LAB L100.1400 37-47 % Low HCT 29.7 LAB L100.1500 81-99 fL Low MCV 80.5 LAB L100.1600 27.0-32.0 pg Low MCH 26.3 LAB L100.1700 32-36 g/gl Normal MCHC 32.7 LAB L100.1810 11.6-14.6 % Normal RDW CV 14.1 LAB L100.1820 35.1-43.9 fl Normal RDW SD 39.6 LAB L100.1900 150-450 K/mm3 Normal PLT 251 LAB L100.2000 6.2-12.0 fl Normal MPV 9.2 LAB L100.2100 47-70 % Normal NEUT% 65.1 LAB L100.2200 19-41 % Normal LY% 22.1 LAB L100.2300 0-10 % Normal MONO% 9.9 LAB L100.2400 0-5 % Normal EO% 2.2 LAB L100.2500 0-1 % Normal BASO% 0.5 LAB L100.2550 0.0-0.9 % Normal IM GRAN % 0.200 Result Comment: IG% - Immature Granulocytes (promyelocytes, myelocytes and metamyelocytes) > 1% indicates that a LEFT SHIFT is Present. LAB L100.2620 2.0-7.7 X10 3/uL Normal Absolute Neut 4.1 LAB L100.2720 0.83-4.51 X10 3/ul Normal Absolute Lymph 1.40 Performed By: #### L100.0100 #### [facility] [address] [place], [place], [address] BASIC METABOLIC Collected: 01/31/2018 Status: F Source: [place] PROFILE (BMP) 5:34 AM [facility] [place] [facility] TYPE CODE TESTS RESULT OUT OF RANGE REFERENCE UNITS LAB L501.0100 74-106 mg/dL High GLU 113 Result Comment: Fasting Glucose result from 100 to 125 mg/dL suggests IMPAIRED HOMEOSTASIS per A.D.A. criteria. Please note revised GLUCOSE reference range effective 2017. LAB L501.1000 7-18 mg/dL High BUN 30 LAB L501.1100 0.55-1.02 mg/dL High CREAT,SERUM 4.63 Result Comment: The validity of the calculated GFR AND GFRAA in patients over 70 years has not been determined. Clinical correlation is essential. LAB L501.1110 >60 mL/min Low EST GFR 11 Result Comment: Non- GFR Calc LAB L501.1115 >60 mL/min Low EST GFR - AA 14 Result Comment: GFR Calc LAB L501.1255 ml/min Normal Estimated CRCL 14.82 LAB L501.1300 10-20 RATIO Low BUN/CRE 6.5 LAB L501.2200 8.5-10 mg/dL Low .1 CA 8.1 LAB L501.5300 136-14 mmol/L Low 5 NA 135 LAB L501.5600 3.5-5. mmol/L Normal 1 K 3.8 LAB L501.5900 98-107 mmol/L Normal CL 103 LAB L501.6100 21.0-3 mmol/L Normal 2.0 CO2 25.0 LAB L501.6200 5-15 Normal GAP 7 Performed By: #### L500.2500 #### [facility] [address] [place], [address] Observed: 01/31/2018 Status: F Source: [place] CULTURE, WOUND 3:04 AM [facility] [place] [facility] Interface Comments: left flank Order Date: 01/31/18 List Antibiotics Last 48 Hours? flagyl, cipro, bactrim List Antibiotics to be Started? cubicin, cefepime Comments: Left flank. Please culture pus. Gram Stain Gram Stain 3+ White Blood Cells No organisms seen Wound Culture Possible skin contamination, further Identification and sensitivity will be performed only by physician's request. ORGANISM 1: Gram positive yen Amount Growth Very Rare Performed By: #### M100.1400 #### [facility] [address] [place], [address] HISTORY AND PHYSICAL Observed: 01/31/2018 Status: F Source: [place] EXAM 2:28 AM [facility] [place] [facility] Medical Records Department [address] [facility] [place] [address] History and Physical 01/30/18 192 MR#: [id number] Acct: [id number] Name: TESS HALL Rep #: [id number] : 1980 37 From: Giancarlo Burt MD PCP: OUT OF TOWN DOCTOR Status: ADM IN Y Location: [facility] [id number] Problem List (1) MITRA (acute kidney injury) Status: Acute (2) Intractable nausea and vomiting Status: Acute History of Present Illness Date of Admission: 01/30/18 Chief Complaint: NAUSEA AND VOMITING The patient is a 37 year old F with a significant history of diabetes mellitus TYPE 2; Left kidney cancer status post nephrectomy who presents with 6 days of nausea and vomiting. Patient was at [facility] about a week ago. She spent about 1 day at [facility] and then she was sent to [facility]. Throughout her admission at [facility] she received antibiotics for infection at her left nephrectomy site. Since about the day 1 of receiving these antibiotics she has been having nausea and vomiting. Indeed patient reported that she was discharged from [facility] with nausea and vomiting. Associated with her symptoms is epigastric pain. She also has pain at the left nephrectomy site. Also she has a poor appetite. At her previous hospital stays she was on IV antibiotics. Recently she has also been on Keflex. Her Keflex was later changed to Bactrim. At the time of presentation patient was still on Bactrim but she reported that her home nurse told her not to take Bactrim on the day of her presentation. At emergency department she was found to have severely elevated creatinine above her baseline. Past Medical History Past Medical History (Chronic Problems): Chronic Problems (Last Reviewed 01/31/18 @ 01:49 by Giancarlo Burt MD) Mass of left kidney (Chronic) Medical History: Medical History (Last Reviewed 01/31/18 @ 01:49 by Giancarlo Burt MD) Acute UTI N39.0 Anxiety F41.9 Depressive disorder F32.9 Diabetes mellitus E11.9 Morbid obesity E66.01 Pyelonephritis N12 Smoker F17.200 diabetes mellitus type 2 Allergies acetaminophen [From Tylenol] Adverse Reaction (Severe, Verified 01/30/18 16:02) Hives clindamycin Adverse Reaction (Severe, Verified 01/30/18 16:02) Hives Home Medications: Ambulatory Orders Medication Instructions Recorded Surgical History: Surgical History (Last Reviewed 01/31/18 @ 01:49 by Giancarlo Burt MD) History of tubal ligation Z98.51 Previous section Z98.891 Surgical History: - - Lives: With Family Smoking Status: Current every day smoker - *Family History Paternal Family History: Family History (Last Reviewed 01/31/18 @ 01:49 by Giancarlo Burt MD) Father Diabetes Uncle Cancer Grandmother Diabetes Review of Systems Constitutional: Denies: Chills, Fever, Weight Change HEENT: Denies: Head Aches, Sinus Congestion, Sinus Drainage Cardiovascular: Denies: Chest Pain, Palpitations Respiratory: Denies: Cough, Shortness of breath at rest, Sputum production Gastrointestinal: Reports: Abdominal Pain, Nausea, Vomiting Genitourinary: Denies: Dysuria Musculoskeletal: Denies: Joint Pain, Joint Tenderness Skin: Denies: Rash, Wounds Neurological: Denies: Numbness, Tingling, Focal weakness Psychiatric: Denies: Anxiety, Depression, Homicidal Ideations, Suicidal Ideations Hematologic/ Lymphatic: Denies: Easy Bruising, Easy Bleeding VTE Information - Inpt Only VTE Present on Admission: No VTE Mechan Device Prophylaxis: None VTE Pharm Prophylaxis ordered?: Yes Patient Problems: Active and Suspected Problems (Last Reviewed 01/31/18 @ 01:49 by Giancarlo Burt MD) MITRA (acute kidney injury) (Acute) Intractable nausea and vomiting (Acute) - Physical Exam General: Alert, Oriented x3, Cooperative HEENT: Atraumatic, PERRLA, EOMI, Normocephalic Neck: Supple, No JVD, Negative Carotid Bruits Lungs: Clear to auscultation, Normal air movement Cardiovascular: Regular rate, No murmurs Abdomen: Bowel Sounds Present, Soft, Non Tender Extremities: No edema, Capillary Refill Less than 3 Seconds Skin: No rashes, - - Left flank with surgical wound and francois drainage. Musculoskeletal: No Tenderness to Palpation of Joints or Extremities Neurological: Cranial nerves II-XII grossly intact Psych/Mental Status: Normal Affect, Appropriate Vital Signs Temp Pulse Resp BP Pulse Ox 98.9 F 101 H 18 163/99 H 100 01/30/18 15:59 01/30/18 16:51 01/30/18 18:00 01/30/18 15:59 01/30/18 16:51 Oxygen Delivery Method Room Air Weight: 138.255 kg Body Mass Index (BMI) 50.7 Laboratory Tests Past 24 Hrs WBC 8.4 RBC 4.21 Hgb 11.0 L Hct 33.7 L MCV 80.0 L MCH 26.1 L Assessment/Plan All Active Problems (Last Reviewed 01/31/18 @ 01:49 by Giancarlo Burt MD) MITRA (acute kidney injury) (Acute) Intractable nausea and vomiting (Acute) The patient is a 37 year old F with a significant history of diabetes mellitus TYPE 2; Left kidney cancer status post nephrectomy who presents with 6 days of nausea and vomiting that started concurrently when antibiotics was initiated; also patient has a copious pus drainage from her left nephrectomy site. Intractable nausea and vomiting Differential diagnosis include antibiotic side effects; diabetic gastroparesis. Bacterial gastroenteritis is less likely since patient has been on multiple antibiotics. Ciprofloxacin and metronidazole was started but to discontinue at this time. Supportive treatment with normal saline and antiemetics. Patient has been initiated on scheduled Reglan for possible diabetic gastroparesis. Nurse reported that 10 minutes after Reglan was given patient had transient restlessness. We will continue Reglan at this time. If her restlessness consider erythromycin. Will check her A1c. Consider transfer for possible gastric emptying study. As needed Zofran ordered. Infected nephrectomy site. White count is normal at 8.4. Wound cultures and blood cultures has been ordered. We will initiate broad-spectrum antibiotics with Linezolid to target MRSA. Vancomycin not started due to AK I with severe poor creatinine function. Cefepime broad-spectrum to cover Pseudomonas. Infectious disease to optimize management. Wound care consult. MITRA Creatinine on admission was 4.88. BUN over creatinine is less than 20. It is possible the patient had ATN from severe dehydration or from the use of antibiotics. Review of old records show that on 06/06/2014 her creatinine was 0.6. Home Bactrim held. Consult nephrology urinary studies Gentle IV hydration. Hold nephrotoxic's. Diabetes mellitus Blood glucose was within goal at admission. Home metformin held. Correction scale insulin. Tobacco abuse Nicotine patch. Counselled. Inpatient consult for smoking cessation. Asthma Home breathing treatments continued. DVT prophylaxis Subcutaneous heparin. Code Visit Inpatient E AND M: 08680 Init Hosp L3 01/31/18 0228 <Electronically signed by Giancarlo Burt MD> Date Giancarlo Burt MD Cosigner Signature: Date (if applicable) CC: Giancarlo Burt MD; OUT OF TOWN DOCTOR Signed BEDSIDE GLUCOSE Collected: 01/30/2018 Status: F Source: [place] 10:16 PM [facility] [place] TYPE CODE TESTS RESULT OUT OF REFERENCE UNITS RANGE LAB L501.080 70-110 mg/dL High BEDSIDE GLU 147 Result Comment: MANAGEMENT OF PATIENT CARE PER NURSING PROTOCOL Performed By: #### L501.080 #### [facility] Point of Care Umesh Chaney. [place], [place] [address] EMERGENCY DEPARTMENT Observed: 01/30/2018 Status: F Source: [place] SUMMARY 10:15 PM [facility] [place] [facility] Medical Records Department [address] [place] [address] Emergency Department Summary 01/30/18 1611 MR#: [id number] Acct: [id number] Name: TESS HALL Rep #: [id number] : 1980 37 From: Mario Abudl MD PCP: OUT OF TOWN DOCTOR Status: ADM IN - ER Visit Summary Date of Service: 01/30/18 Chief Complaint: Nausea and vomiting History of Present Illness: The patient is a 37 F who presents with nausea and vomiting. Is been ongoing for 6 days. The patient had a partial nephrectomy on December 09 at [facility]. This was for a renal cancer. She has not been on any chemotherapy as they got all of the cancer with the surgery. She has had a complicated postoperative course including multiple admissions at [facility] for postoperative wound infections. She was just released from there 6 days ago. She has been trying to use Zofran and recently started taking Phenergan to help with his nausea but is not getting any better. She has burning in her abdomen. She has been doing wound dressing changes on the left flank wound. They are scheduled to follow-up with the wound center. She has not had a fever. She is also currently on Bactrim. Family member in the room states that they put her on this Bactrim because they do not know what infection they are trying to treat. Physical Examination: Vital signs are reviewed. BMI 50. HEENT exam unremarkable. Heart is regular rate and rhythm. Lungs are clear to auscultation bilaterally. Abdomen is soft and nontender. There is no distention, guarding. Extremities have no significant edema. Skin exam reveals a chronic wound to the left flank. There is packing in place. There is no erythema or significant drainage. There is a slight serous drainage which family has stated has been there. Her neurologic exam is normal. Test Results: Hemoglobin 11, hematocrit 33.7. BUN 31, creatinine 4.88. Liver enzymes negative Emergency Department Course and Treatment: The patient's last BUN and creatinine were normal. I hydrated her with IV fluids. She was also given Phenergan. There is concern for dehydration along with possible intrarenal pathology such as ATN with the elevation of her creatinine without a significant elevation of the BUN. Patient was discussed with the hospitalist for admission. Treatment Plan: [] Disposition: Admit Impression: Acute kidney injury, dehydration, vomiting This note was generated with [employer] dictation software. It may contain incorrect words, spelling, and punctuation that were not noted in review of the chart prior to signing ED Disposition - Plan for ED Patient: Disposition: Acute Care Hospital [facility] Chief Complaint: General Illness What to do if you have Problems For any increased pain, shortness of breath, bleeding, nausea or vomiting, chest pain, or any unexpected problems, contact your Primary Care Provider. Call [facility] ([phone]) or report to the closest Emergency Room. Call 911 if necessary. 01/30/182214 <Electronically signed by Mario Abdul MD> Date Mario Abdul MD Cosigner Signature (If Indicated): Date CC: OUT OF TOWN DOCTOR Observed: 01/30/2018 Status: F Source: [place] CULTURE, BLOOD (WB) 10:15 PM [facility] [place] Has pt arrived? Y LAB UTO; NURSING SLOPE TENDER NOTIFIED BC No growth in 5 days. Performed By: #### M200.1000 #### [facility] [address] [place], [address] HEMOGLOBIN A1C Collected: 01/30/2018 Status: F Source: [place] 4:56 PM [facility] [place] TYPE CODE TESTS RESULT OUT OF RANGE REFERENCE UNITS LAB L501.9985 4.2-6.3 % High HGB A1C 8.6 Performed By: #### L501.9985 #### [facility] [address] [place], [address] CBC W/DIFF, AUTOMATED Collected: 01/30/2018 Status: F Source: [place] 4:52 PM [facility] [place] TYPE CODE TESTS RESULT OUT OF RANGE REFERENCE UNITS LAB L100.1000 4.4-11.0 K/mm3 Normal WBC 8.4 LAB L100.1200 4.2-5.4 M/mm3 Normal RBC 4.21 LAB L100.1300 12.0-15.0 g/dl Low HGB 11.0 LAB L100.1400 37-47 % Low HCT 33.7 LAB L100.1500 81-99 fL Low MCV 80.0 LAB L100.1600 27.0-32.0 pg Low MCH 26.1 LAB L100.1700 32-36 g/gl Normal MCHC 32.6 LAB L100.1810 11.6-14.6 % Normal RDW CV 14.1 LAB L100.1820 35.1-43.9 fl Normal RDW SD 39.8 LAB L100.1900 150-450 K/mm3 Normal PLT 305 LAB L100.2000 6.2-12.0 fl Normal MPV 8.8 LAB L100.2100 47-70 % High NEUT% 78.6 LAB L100.2200 19-41 % Low LY% 12.3 LAB L100.2300 0-10 % Normal MONO% 6.7 LAB L100.2400 0-5 % Normal EO% 2.0 LAB L100.2500 0-1 % Normal BASO% 0.2 LAB L100.2550 0.0-0.9 % Normal IM GRAN % 0.200 Result Comment: IG% - Immature Granulocytes (promyelocytes, myelocytes and metamyelocytes) > 1% indicates that a LEFT SHIFT is Present. LAB L100.2620 2.0-7.7 X10 3/uL Normal Absolute Neut 6.6 LAB L100.2720 0.83-4.51 X10 3/ul Normal Absolute Lymph 1.03 Performed By: #### L100.0100 #### [facility] [address] [place], [place], [id number] COMPREHENSIVE METABOLIC Collected: 01/30/2018 Status: F Source: [facility] 4:52 PM [facility] [place] TYPE CODE TESTS RESULT OUT OF RANGE REFERENCE UNITS LAB L501.0100 74-106 mg/dL High GLU 144 Result Comment: Fasting Glucose result greater than or equal to 126 mg/dL suggests DIABETES MELLITUS per A.D.A. criteria. Please note revised GLUCOSE reference range effective 2017. LAB L501.1000 7-18 mg/dL High BUN 31 LAB L501.1100 0.55-1.02 mg/dL High CREAT,SERUM 4.88 Result Comment: The validity of the calculated GFR AND GFRAA in patients over 70 years has not been determined. Clinical correlation is essential. LAB L501.1110 >60 mL/min Low EST GFR 11 Result Comment: Non- GFR Calc LAB L501.1115 >60 mL/min Low EST GFR - AA 13 Result Comment: GFR Calc LAB L501.1255 ml/min Normal Estimated CRCL 14.07 LAB L501.1300 10-20 RATIO Low BUN/CRE 6.4 LAB L501.1500 6.4-8. g/dL Normal 2 T PROT 6.9 LAB L501.1800 3.2-5. g/dL Low 0 ALB 2.4 LAB L501.1950 2.2-4. g/dL High 2 GLOB 4.5 LAB L501.2000 0.9-2. RATIO Low 4 A/G 0.5 LAB L501.2200 8.5-10 mg/dL Normal .1 CA 8.8 LAB L501.4100 15-37 U/L Low AST 10 LAB L501.4305 45-117 U/L Normal ALK P 96 LAB L501.4405 13-56 U/L Normal ALT 20 LAB L501.4600 0.20-1 mg/dL Normal .00 T BILI 0.40 LAB L501.5300 136-14 mmol/L Normal 5 NA 138 LAB L501.5600 3.5-5. mmol/L Normal 1 K 4.0 LAB L501.5900 98-107 mmol/L Normal CL 99 LAB L501.6100 21.0-3 mmol/L Normal 2.0 CO2 25.0 LAB L501.6200 5-15 Normal GAP 14 Performed By: #### L500.4050, L501.2450 #### [facility] [address] [place], [address] LIPASE Collected: 01/30/2018 Status: F Source: [place] 4:52 PM [facility] [place] TYPE CODE TESTS RESULT OUT OF REFERENCE UNITS RANGE LAB L501.2450 73-393 U/L Low LIPASE 32 Performed By: #### L500.4050, L501.2450 #### [facility] [address] [place], [address] CASE MANAGEM Observed: 01/25/2018 Status: COMPLETED Source: [place] 5:38 PM [facility] REPOSITORY HNO ID: [id number] Author: Adelia Ramirez (Sw) Service: (none) Author Type: Systems Design Engineer Type: Care Mgt Progress Note Filed: 01/27/2018 12:06 PM Note Text: CARE MANAGEMENT DISCHARGE NOTE SERVICE DATE: 01/27/2018 SERVICE TIME: 12:03 PM LOS: 2 days Admission Date: 01/23/2018 DISCHARGE ARRANGEMENT (list agency and phone number) Home Care - Nursing Provider: [facility]. CAREGIVER ASSESSMENT: Caregiver is ready, willing and able to meet the patient's needs as recommended by the inter-professional team? Yes Patient's transition needs and plan for meeting these needs: Pt's sister is able to assist with dressing changes. Does the patient have an acute stroke diagnosis, or has the patient had a stroke during this admission? No HANDOFF COMMUNICATION: PCP and HHC TRANSPORTATION ARRANGEMENTS: N/A ADDITIONAL CONTACT RESOURCES: was notified after pt's dc that the home care agency that had accepted pt is out of network and unable to provide care. CM contacted several other agencies with pt's permission. Pt was accepted by [facility]. . [facility] will contact pt directly and schedule start of care. No further needs identified. SIGNATURE: SUKH Pyle M.Ed, [facility] PATIENT NAME: Tess Hall DATE: January 27, 2018 TIME: 12:03 PM PAGER/CONTACT #: [phone] CASE MANAGEM Observed: 01/25/2018 Status: COMPLETED Source: [place] 3:05 PM [facility] [place] REPOSITORY HNO ID: [id number] Author: Amaris Cervantes RN Service: Care Management Author Type: Registered Nurse Type: Care Mgt Progress Note Filed: 01/25/2018 3:09 PM Note Text: CARE MANAGEMENT PROGRESS NOTE SERVICE DATE: 01/25/2018 SERVICE TIME: 3:05 PM LOS: 2 days Needs Prior to Discharge: Ready for Discharge Attempted to connect pt w/ a hhc co in her area that accepts her insurance. So far, none will accept. Sent to approx 10 [facility] agencies. Spoke w/ pt and family at bedside. Explained that I may not be able to set them up w/ services prior to dc. Will cont to try, but if no one accepts, would be unable to provide hhc. Pt and sister voiced understanding. Still await responses from a few companies. If unable to place pt, sister states she feels comfortable w/ doing dressing care independently after being instructed by MD. If, by chance someone accepts, will contact pt at home after dc. Bedside RN will provide pt w/ some supplies prior to dc. SIGNATURE: Amaris Cervantes RN PATIENT NAME: Tess Hall DATE: January 25, 2018 TIME: 3:05 PM PAGER/CONTACT #: [phone] CNDS Observed: 01/25/2018 Status: COMPLETED Source: [place] 2:50 PM [facility] REPOSITORY HNO ID: [id number] Author: Rob Maldonado Service: Urology Author Type: Resident Type: Discharge Summaries Filed: 01/25/2018 5:07 PM Note Text: The [address] [address] or [phone] CC-[facility]ER[facility] C O N F I D E N T I A L I N F O R M A T I O N [facility] DOCUMENT DISCHARGE SUMMARY Patient Name: Tess Hall Patient Admission Date: 01/23/2018 Discharge Date: 01/25/2018 Attending Physician: Heather Torres Principal Diagnosis: Patient Active Hospital Problem List: Abscess (01/23/2018) Operations During Hospitalization: none Procedures Performed While Hospitalized: Bedside incision and drainage Reason for Hospitalization: 37 year old female s/p Left open partial nephrectomy 11/2017 who presented to outside ED with drainage from left flank incision and was then transferred to [facility] for further management. Hospital Course: On admission, wound and blood cultures obtained. Broad spectrum antibiotics started. CT Abdomen/pelvis from outside ED noted small discrete urine leak. Drainage creatinine level was consistent with serum, thereby ruling out urine fistula to skin. On hospital day 1, pt underwent bedside incision and drainage of the flank incision allowing further drainage from wound. Two separate wounds in anterior and posterior aspects of incisions were packed with Nu-gauze. By hospital day 2, wound was spontaneously draining. Pt was afebrile, without leukocytosis. Pain was controlled. The patient tolerated diet. Pt was discharged home with PO antibiotics, wound care instructions and instructions to return for follow up in clinic. Patient Condition at Discharge: Improved Labs and Procedures Pending at Discharge: none Consulting Teams During Hospitalization: none Discharge Disposition: Home (possibly with home health care, though pt and family are motivated to manage wound care by themselves) Information Provided to the Patient: Patient was given a copy of Discharge Instructions Discharge Medications: Current Discharge Medication List START taking these medications cephALEXin (KEFLEX) 500 mg Take 500 mg by mouth three times daily. Qty: 30 capsule Refills: 0 CONTINUE these medications which have CHANGED ondansetron (ZOFRAN) 4 mg Take 4 mg by mouth every 6 hours. Qty: 30 tablet Refills: 1 CONTINUE these medications which have NOT CHANGED polyethylene glycol 3350 (MIRALAX, GLYCOLAX) 17 g Take 17 g by mouth once daily as needed (constipation). OXYGEN, HOME THERAPY, 2 L/min 2 L/min by Nasal Cannula route as directed. 2LPN via Nasal Cannula with exertion and during sleep with oxygen concentrator with back up oxygen tank and conserving device for ambulation. Qty: 1 Units Refills: 0 Associated Diagnoses:Nocturnal oxygen desaturation !! blood sugar diagnostic (FREESTYLE LITE STRIPS) test strip Use as instructed Qty: 100 Strip Refills: 5 !! lancets 1 Stick 1 Stick three times daily. Qty: 100 Each Refills: 5 glipiZIDE (GLUCOTROL) 10 mg tablet Take 1 in am before breakfast and 1 before evening meal. Associated Diagnoses:Uncontrolled type 2 diabetes mellitus without complication, without long-term current use of insulin ([facility]) insulin glargine (LANTUS SOLOSTAR, BASAGLAR KWIKPEN) 20 Units Inject 20 Units subcutaneously daily at bedtime. Associated Diagnoses:Screening for genitourinary condition; Renal mass; Morbid obesity (HCC) docusate sodium (COLACE) 100 mg Take 100 mg by mouth twice daily. Qty: 40 capsule Refills: 0 Comments: Please take for constipation associated with narcotics - please discontinue if having diarrhea exenatide microspheres (BYDUREON SUBCUTANEOUS) Inject subcutaneously once each week. cyclobenzaprine (FLEXERIL) 10 mg Take 10 mg by mouth three times daily as needed for Muscle Spasm. fluticasone (FLOVENT) 1 Puff Inhale 1 Puff as instructed twice daily. Rinse your mouth after each use. Qty: 1 Inhaler Refills: 0 !! blood sugar diagnostic (FREESTYLE LITE STRIPS) test strip Test blood sugar(s)3daily. Dx: diabetes type 2 uncontrolled.. Insulin: No, titrating medication Qty: 100 Strip Refills: 3 Associated Diagnoses:Uncontrolled type 2 diabetes mellitus without complication, without long-term current use of insulin ([facility]) !! Lancets lancets Use as instructed up to 4 times daily Qty: 120 Each Refills: 11 metFORMIN (GLUCOPHAGE) 1,000 mg Take 1,000 mg by mouth twice daily with meals. Qty: 60 tablet Refills: 3 Blood-Glucose Meter (FREESTYLE LITE METER) monitoring kit As directed Qty: 1 Each Refills: 0 albuterol HFA (PROVENTIL HFA, VENTOLIN HFA) 2 Puffs Inhale 2 Puffs as instructed. !! - Potential duplicate medications found. Please discuss with provider. Future Appointments: Please follow-up as recommended by your provider. Electronically SIGNED by Licensed Independent Practitioner: Rob Maldonado MD PLAN OF CARE Observed: 01/25/2018 Status: COMPLETED Source: [place] 2:37 PM [facility] [place] REPOSITORY HNO ID: [id number] Author: Patsy Amezquita (Meat Sales And Storage Manager) Service: (none) Author Type: (none) Type: Plan of Care Filed: 01/25/2018 2:37 PM Note Text: NATURAL RESOURCES ENGINEER BEDSIDE DELIVERY SURVEY 1. Patient to use [facility] Bedside Delivery - YES 2. If fax, patient would like us to fax prescriptions to Pharmacy of choice a. Pharmacy: b. Location: c. Phone: 3. Insurance card on file - YES 4. Credit card for payment - NO PROGRESS Observed: 01/25/2018 Status: COMPLETED Source: [place] 1:54 PM [facility] REPOSITORY HNO ID: [id number] Author: Jennifer Koroma Service: Urology Author Type: Nurse Practitioner Type: Progress Notes Filed: 01/25/2018 2:06 PM Note Text: UROLOGY SERVICE PROGRESS NOTE PATIENT INFO: Tess Hall 37 year old DATE: 01/25/2018 S: No acute events. Patient reports current pain controlled, states discomfort to left side of abdomen/flank worsens with activity. Denies fever or chills. Reports she has been tolerating fluids, denies nausea or vomiting at this time. Ambulating without issue. PAST MEDICAL HISTORY Diagnosis Date - Depression - DM2 (diabetes mellitus, type 2) (HCC) - HLD (hyperlipidemia) - Hx of acute pyelonephritis - Morbid obesity (HCC) - Reactive airway disease - Renal mass - Smoker Exam: Patient Vitals for the past 8 hrs: BP Temp Temp src Pulse Resp SpO2 01/25/18 1034 120/74 36.7 ?C (98.1 ?F) Oral 77 18 97 % 01/25/18 0711 123/81 36.2 ?C (97.2 ?F) Oral 92 18 98 % Tmax: Temp (24hrs), Av.8 ?C (98.2 ?F), Min:36.2 ?C (97.2 ?F), Max:37.3 ?C (99.1 ?F) Intake/Output Summary (Last 24 hours) at 01/25/18 1354 Last data filed at 01/25/18 1300 Gross per 24 hour Intake 3290 ml Output 1200 ml Net 2090 ml General: No acute distress CV: No abnormal heart sounds Lungs: Clear to auscultation bilaterally, breaths even and unlabored. Abdomen: Soft, appropriately-tender, non-distended, +BS Wound: Anterior and posterior wound openings packed with nu-gauze previously : No serrano catheter in place. Labs: Recent Labs 01/25/18 0032 01/24/18 0020 01/23/18 1437 WBC 5.44 6.18 8.66 HB 9.5* 9.4* 11.5 HCT 28.5* 28.5* 34.6* PLT 272 243 300 NA 138 132* 131* K 3.7 3.8 4.0 CHLOR 100 95* 94* CO2 22 25 25 BUN 12 13 10 CREAT 0.87 0.82 0.56* GLUC 143* 311* 353* Current hospital medications: ibuprofen 600 mg tab(s) (MOTRIN) 600 mg ORAL QID scopolamine 1 mg over 3 days 1 Patch (TRANSDERM-SCOP) 1 Patch TRANSDERMAL q 72 HR [START ON 01/27/2018] scopolamine - REMOVE PATCH OTHER q 72 HR scopolamine - VERIFY patch OTHER q 8 H albuterol HFA 90 mcg/actuation 2 Puff (PROVENTIL HFA, VENTOLIN HFA) 2 Puff INHALATION q 4 H PRN cyclobenzaprine 10 mg tab(s) (FLEXERIL) 10 mg ORAL TID PRN NaCl 0.9% iv infusion 100 mL/hr INTRAVENOUS CONTINUOUS ondansetron (PF) 4 mg injection (ZOFRAN) 4 mg INTRAVENOUS q 6 H PRN heparin 5,000 Units injection 5,000 Units SUBCUTANEOUS q 12 H dextrose 40 % 15 g 15 g ORAL PRN glucagon 1 mg injection (GLUCAGEN) 1 mg INTRAMUSCULAR PRN dextrose 50% in water 25 mL syringe 12.5 g INTRAVENOUS PRN insulin lispro injection (rapid acting) (HumaLOG) SUBCUTANEOUS q 6 H piperacillin-tazobactam 3.375 g in dextrose (iso-osmotic) 50 mL (ZOSYN) 3.375 g INTRAVENOUS q 6 H vancomycin dosing and monitoring per pharmacy OTHER As Directed insulin glargine 20 Units pen (long acting) (LANTUS SOLOSTAR, BASAGLAR KWIKPEN) 20 Units SUBCUTANEOUS AT BEDTIME vancomycin 1.5 g in D5W 250 mL (VANCOCIN) 1.5 g INTRAVENOUS q 12 HR Imp/Plan: Tess Hall is a 37 year old female with PMH of DM2, HLD, incidental left renal mass s/p open left partial nephrectomy by Dr. Torres 12/09/2017 (final path RCC clear cell type, negative margins, pT3a) admitted from outside ED for wound infection and possible urine leak. ? Wound culture: prelim negative Blood cultures: prelim no growth <24hours BFL Cr - 0.7 (no urine leak) ? -diabetic diet, nausea currently controlled (Scopalimine patch) -empiric abx - vanc and zosyn, transition to PO on discharge (Keflex 10 days) -Toradol/Ibuprofen for pain control -DVT prophylaxis- Heparin and PAS stockings -Secondary diagnoses: DM- Insulin -dispo: likely home this PM after [facility] set up for wound care. Currently awaiting [facility] company to accept patient. Patient and sister agreeable to learn dressing changes/packing for dressings to be done BID regardless of [facility]. Signature: Jennifer Koroma APRN.JOHNNY Pager: [phone] Date of service: 01/25/2018 CASE MGT INIT Observed: 01/25/2018 Status: COMPLETED Source: [facility] 11:30 AM [facility] [place] REPOSITORY HNO ID: [id number] Author: Amaris RobertsRn) BHARGAVI Cervantes Service: Care Management Author Type: Registered Nurse Type: Care Mgt Initial Assessment Filed: 01/25/2018 11:36 AM Note Text: CARE MANAGEMENT: ASSESSMENT AND DISCHARGE PLAN SERVICE DATE: 01/25/2018 SERVICE TIME: 11:31 AM PRIMARY CARE PHYSICIAN: Ayana Concepcion CNP ADMISSION STATUS: Inpatient Needs Prior to Discharge: Discharge Prescriptions;Facility or Agency Choices;Home Care Order;Discharge Transportation;Pharmacy Bedside Delivery;Wound Care MEDICAL: 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 No Advance Directive: Current Advance Directive: Health Care Power of Heater Room Helper In Chart: Yes Up To Date and Valid: Yes Health Literacy: 1. How often do you need to have someone help you when you read instructions, pamphlets, or other written material from your doctor or pharmacy? Rarely - 2 2. How confident are you filling out medical forms by yourself? Extremely - 1 If Patient scores > 3 on either question, the following interventions were put into place: Patient did not score > 3 FUNCTIONAL AND COGNITIVE/BEHAVIORAL PRIOR TO ADMISSION: Baseline Mental Status: Alert AND Oriented, Person, Place , Time and Situation Functional Status: Needs Assistance Does Patient Currently Receive Any Community Services or Home Care? None Equipment Prior to Admission: None Has the Patient Been in a Detention Facility in the Past 30 days? No SOCIAL: Living Arrangement: Home Lives With: sig other Financial Resources: Disabled Primary Contact: Extended Emergency Contact Information Primary Emergency Contact: AlejandroalfredocristinaSary Mobile Relation: Mother Supportive: Yes Other Important Patient Contacts: None Caregiver Assessment: Caregiver is ready, willing and able to meet the patient's needs as recommended by the inter-professional team? Yes Patient's transition needs and plan for meeting these needs: self, sister and c Does the patient have an acute stroke diagnosis, or has the patient had a stroke during this admission? No Medication Adherence: I am convinced of the importance of my prescription medication: Agree completely - 0 I worry that my prescription medication will do more harm than good to me Disagree completely - 0 I feel financially burdened by my [id number] expenses for my prescription medication: Disagree completely - 0 Patient is categorized as low risk < 2 Are you interested in bedside delivery of your medications? Yes Food Concerns: In the Last Month, Have You had Trouble Getting Food? No trouble getting food During the Last Month, Have You Worried Whether Your Food Would Run Out Before You Had Enough Money to Buy More? No Is the Patient Psychosocially Complex? No ASSESSMENT AND PLAN: Medical Needs: Diabetes - Poor management and Wound Care - active or potential Psychosocial Needs: None FREEDOM OF CHOICE EXPLAINED: Yes done The patient and/or family has been given the Provider List: Yes Provider List: Home Care Preference: Chose [facility] or [facility], neither can accept, sent to [facility] other [facility] co's, aw acceptance POTENTIAL TRANSITION PLANS Home Care Adm from OSH w/ nonhealing wound, s/p PNx in Nov. Opened and drained, wound currently being packed. Spoke w/ pt and sister at bedside. Pt wishes to be dc'd today, if poss. Agreeable to [facility], List provided. Chose 2 co's, both of which could not accept. Sent referral to [facility] other co's, aw acceptance to finalize plans. Pt's sister will be primary support. Requested F, aw dc orders to proceed. SIGNATURE: Amaris Cervantes RN PATIENT NAME: Tess Hall DATE: January 25, 2018 TIME: 11:30 AM PAGER/CONTACT #: [phone] [facility] Observed: 01/25/2018 Status: COMPLETED Source: STEGER 10:07 AM [facility] REPOSITORY HNO ID: [id number] Author: Gaston (Rn) BHARGAVI Gonzalez Service: Wound/Ostomy Author Type: Registered Nurse Type: Allied Health Filed: 01/25/2018 10:10 AM Note Text: ET/WOCN Nursing Consult Topic: ET/WOCN Consultation Note ET Outcome: WOC nursing consulted with bedside nursing confirming no WOC needs at this time. Area being managed with packing by bedside nursing at this time. Please re-consult all further WOC needs. ET's Next Scheduled Visit: PRN Time Increment: 15 minutes REKHA Hughes, RN, CWOCN, WCC PROGRESS Observed: 01/25/2018 Status: COMPLETED Source: STEGER 7:33 AM [facility] REPOSITORY HNO ID: [id number] Author: Heather Torres Service: Urology Author Type: Physician Type: Progress Notes Filed: 01/25/2018 12:16 PM Note Text: UROLOGY SERVICE PROGRESS NOTE PATIENT INFO: Tess Hall 37 year old DATE: 01/25/2018 S: Yesterday, incision opened further at bedside and packed w/ nu-gauze. Pain at incision. N/v overight, scopolamine added. No subjective fevers/chills. PAST MEDICAL HISTORY Diagnosis Date - Depression - DM2 (diabetes mellitus, type 2) ([facility]) - HLD (hyperlipidemia) - Hx of acute pyelonephritis - Morbid obesity (HCC) - Reactive airway disease - Renal mass - Smoker Exam: Patient Vitals for the past 8 hrs: BP Temp Temp src Pulse Resp SpO2 01/25/18 0711 123/81 36.2 ?C (97.2 ?F) Oral 92 18 98 % Intake/Output Summary (Last 24 hours) at 01/25/18 0733 Last data filed at 01/25/18 0700 Gross per 24 hour Intake 3130 ml Output 2150 ml Net 980 ml UO: 1150cc voided Drains: BP 123/81 Pulse 92 Temp 36.2 ?C (97.2 ?F) (Oral) Resp 18 Wt 134.4 kg (296 lb 4.8 oz) SpO2 98% BMI 49.31 kg/m? Gen: lying in bed in no acute distress Resp: Even, unlabored respirations Abd: morbidly obese, soft, left flank incision dec erythema w/o induration. Anterior wound opening w/ purulent drainage, cotton swab Tunnels down to fascia level. Posterior wound opening just below skin level. Both packed w/ nu-gauze. : no serrano Extrem: SCDs Labs: Recent Labs 01/25/18 0032 01/24/18 0020 01/23/18 1437 WBC 5.44 6.18 8.66 HB 9.5* 9.4* 11.5 HCT 28.5* 28.5* 34.6* PLT 272 243 300 NA 138 132* 131* K 3.7 3.8 4.0 CHLOR 100 95* 94* CO2 22 25 25 BUN 12 13 10 CREAT 0.87 0.82 0.56* GLUC 143* 311* 353* Current hospital medications: scopolamine 1 mg over 3 days 1 Patch (TRANSDERM-SCOP) 1 Patch TRANSDERMAL q 72 HR [START ON 01/27/2018] scopolamine - REMOVE PATCH OTHER q 72 HR scopolamine - VERIFY patch OTHER q 8 H albuterol HFA 90 mcg/actuation 2 Puff (PROVENTIL HFA, VENTOLIN HFA) 2 Puff INHALATION q 4 H PRN cyclobenzaprine 10 mg tab(s) (FLEXERIL) 10 mg ORAL TID PRN NaCl 0.9% iv infusion 100 mL/hr INTRAVENOUS CONTINUOUS ondansetron (PF) 4 mg injection (ZOFRAN) 4 mg INTRAVENOUS q 6 H PRN heparin 5,000 Units injection 5,000 Units SUBCUTANEOUS q 12 H dextrose 40 % 15 g 15 g ORAL PRN glucagon 1 mg injection (GLUCAGEN) 1 mg INTRAMUSCULAR PRN dextrose 50% in water 25 mL syringe 12.5 g INTRAVENOUS PRN insulin lispro injection (rapid acting) (HumaLOG) SUBCUTANEOUS q 6 H piperacillin-tazobactam 3.375 g in dextrose (iso-osmotic) 50 mL (ZOSYN) 3.375 g INTRAVENOUS q 6 H ketorolac 15 mg injection (TORADOL) 15 mg INTRAVENOUS q 6 H PRN vancomycin dosing and monitoring per pharmacy OTHER As Directed insulin glargine 20 Units pen (long acting) (LANTUS SOLOSTAR, BASAGLAR KWIKPEN) 20 Units SUBCUTANEOUS AT BEDTIME vancomycin 1.5 g in D5W 250 mL (VANCOCIN) 1.5 g INTRAVENOUS q 12 HR Imp/Plan: Tess Hall is a 37 year old female with PMH of DM2, HLD, incidental left renal mass s/p open left partial nephrectomy by Dr. Torres 12/09/2017 (final path RCC clear cell type, negative margins, pT3a) admitted from outside ED for ?wound infection and urine leak. Wound culture: prelim negative Blood cultures: prelim no growth <24hours BFL Cr - 0.7 (no urine leak) ? -diabetic diet -IVF -empiric abx - vanc and zosyn, transition to PO on discharge (Keflex 10 days) -toradol for pain control -no stenting nor drain placement -dispo: likely home this PM after [facility] set up for wound care ? Discussed with Staff Dr. Brian Maldonado M.D. Urology PGY-3 Pager: [phone] January 25, 2018 7:46 AM Overnight and on weekends please page [phone] As above, wound care in progress Pt was off floor when I visited Cr on fluid 0.7, not not a urine leak WBC fine, clinically doing well now Prob DC today on oral abx and wound care Heather Torres MD CBC Collected: 01/25/2018 Status: F Source: STEGER 12:32 AM [facility] [place] REPOSITORY TYPE CODE TESTS RESULT OUT OF REFERENCE UNITS RANGE LAB WBC 3.70-11.00 k/uL WBC 5.44 LAB RBC 3.90-5.20 m/uL Low RBC 3.57 LAB HGB 11.5-15.5 g/dL Low Hemoglobin 9.5 LAB HCT 36.0-46.0 % Low Hematocrit 28.5 LAB MCV 80.0-100.0 fL Low MCV 79.8 LAB MCH 26.0-34.0 pG MCH 26.6 LAB MCHC 30.5-36.0 g/dL MCHC 33.3 LAB RDWCV 11.5-15.0 % RDW-CV 13.7 LAB PLTCT 150-400 k/uL Platelet Count 272 LAB MPV 9.0-12.7 fL MPV 9.9 LAB ABSNUC <0.01 k/uL Absolute nRBC <0.01 Performed By: #### CBC, BMP #### [facility] [address] [place], [place] [address] BASIC METABOLIC PANL Collected: 01/25/2018 Status: F Source: STEGER 12:32 AM [facility] REPOSITORY TYPE CODE TESTS RESULT OUT OF REFERENCE UNITS RANGE LAB GLU 74-99 mg/dL High Glucose 143 Result Comment: The [place] Diabetes [employer] (ADA) provides guidance for cutoff values for fasting glucose and random glucose. The ADA defines fasting as no caloric intake for at least 8 hours. Fas ting plasma glucose results between 100 to 125 mg/dL indicate increased risk for diabetes (prediabetes). Fasting plasma glucose results greater than or equal to 126 mg/dL meet the criteria for diagnosis of diabetes. In the absence of unequivocal hyperglycemia, results should be confirmed by repeat testing. In a patient with classic symptoms of hyperglycemia or hyperglycemic crisis, random plasma glucose results greater than or equal to 200 mg/dL meet the criteria for diagnosis of diabetes. Reference: Standards of Medical Care in Diabetes 2016, [place] Diabetes [employer]. Diabetes Care. 2016.39(Suppl 1). LAB BUN 7-21 mg/dL BUN 12 LAB CRET 0.58-0.96 mg/dL Creatinine 0.87 LAB NA 136-144 mmol/L Sodium 138 LAB K 3.7-5.1 mmol/L Potassium 3.7 LAB CL 97-105 mmol/L Chloride 100 LAB CO2 22-30 mmol/L CO2 22 LAB AGAP 9-18 mmol/L Anion Gap 16 LAB CA 8.5-10.2 mg/dL Calcium, Total 8.5 LAB GFRAA eGFR- Amer. >60 LAB GFRNAA . eGFR-All Other Races >60 Result Comment: eGFR (Estimated GFR) Units of measure: mL/min/1.73 meters squared eGFR is derived from the reexpressed MDRD Study equation using the following parameters: serum creatinine, age, gender and race. The creatinine assay has been calibrated to be traceable to IDMS. An eGFR <60 mL/min/1.73m2 for >3 months is consistent with chronic kidney disease. Refer to KDOQI guidelines for clinical interpretation. In patients with unstable renal function, e.g. those with acute kidney injury, the eGFR may not accurately reflect actual GFR. Performed By: #### CBC, BMP #### [facility] [address] [place], [place] [address] PROGRESS Observed: 01/24/2018 Status: COMPLETED Source: STEGER 6:05 PM [facility] REPOSITORY HNO ID: [id number] Author: Stefania Hayes MD Service: Urology Author Type: Resident Type: Progress Notes Filed: 01/24/2018 6:15 PM Note Text: UROLOGY SERVICE PROGRESS NOTE PATIENT INFO: Tess Hall 37 year old DATE: 01/24/2018 Interval History: Incision with several areas of diastasis with yellow/white opaque fluid and with cloudy pink fluid draining. Incision remains very tender. The incision had been pouched and the pouch included milky opaque fluid which was then collected and sent for drain creatinine. Discussed probing the incision and examining the surgical incision with an incision and drainage of the areas currently draining so as to maximize overall drainage and healing of the wound. The patient and her sister are strongly in favor. Informed consent was obtained and I discussed with Dr. Torres prior to proceeding. The incision was prepped with betadine. 8ml of 10% lidocaine was used to infiltrate the incision at the points of concern. A sterile scalpel was used to connect two posterior openings. The incision was then probed with a sterile cotton swab and packed with 1/2 nugauze. The fascia was intact and there was a contiguous pocket under the subcutaneous tissue heading anteriorly. An anterior medial incisional diastasis was then probed with a sterile cotton swab and it was evident that there was a moderately sized space medial to the incision. This space was packed with 1 inch nugauze. The whole incision was then covered with a gauze dressing. The patient tolerated the procedure. Discussed with deputy commonwealth's attorney resident Dr. Webster and covering service resident Dr. Maldonado. Signature: Stefania Hayes MD PGY-6 Urology 6:05 PM [facility] Observed: 01/24/2018 Status: COMPLETED Source: STEGER 4:18 PM [facility] REPOSITORY HNO ID: [id number] Author: Gaston Gonzalez RN Service: Wound/Ostomy Author Type: Registered Nurse Type: Allied Health Filed: 01/24/2018 4:31 PM Note Text: ET/WOCN Nursing Consult Topic: ET/WOCN Consultation Note ET Outcome: WOC nursing to bedside for re-consult for leaking pouch. Pouches intact upon encounter, family requesting different method of management. Pouching removed, patient tolerated well, declining pain medicine when asked, with verbal redirection from family. Assessment revealed 4 areas along old incision to L flank draining moderate amount of seropurulent appearing exudate. Area cleansed and Urology to bedside during encounter and visualized area. The decision was made with family and urology to pack/dress the area after bedside procedure. Pouching systems left at bedside. Per urology they will re-consult if pouching needs arise. Pouching of exudate was provided to bedside nursing to be sent as specimen per Urology. Family member is expressing general dissatisfaction with patient situation and is intermittently upset and apologetic towards staff throughout encounter. ET's Next Scheduled Visit: 01/25/18 Assess needs Time Increment: 1 hour 30 minutes total REKHA Hughes, RN, CWOCN, [facility] CREATININE, FLUID Collected: 01/24/2018 Status: F Source: STEGER 4:17 PM [facility] [place] REPOSITORY TYPE CODE TESTS RESULT OUT OF RANGE REFERENCE UNITS LAB FCRE mg/dL 0.7 Creatinine, Fluid Result Comment: (NOTE) Serous fluids: Creatinine measurement in peritoneal or drainage fluids is considered a useful test for detecting the presence of urine leaking through a defect in the urinary tract. A ratio of serous fluid creatinine to a concurrent serum creatinine > 1.0 indicates possible urine extravasation. Amniotic fluid: Creatinine measurement can be performed on amniotic fluid. The interpretation of the result is dependent on the clinical context, including gestational age. See references below. References: 1. CLSI. Analysis of Body Fluids in Clinical Chemistry; Approved Guideline. CLSI document C49-A. [place]: Clinical Laboratory Standards [place]; 2007. 2. Brodie RJ, Joey TA, Esdras JL, Evan VM, Glenn CJ. Composition of the amniotic fluid and maternal serum in . Am J Obstet Gynecol 1974;119:798-810. This test was developed and its performance characteristics determined by [facility] Pathology and Laboratory Medicine [place] ([facility]). It has not been cleared or approved by the FDA. [facility] is regulated under CLIA as qualified to perform high-complexity testing. This test is used for clinical purposes. It should not be regarded as investigational or for research. Performed By: #### FCRE #### [facility] [address] [place], [place] [address] [facility] Observed: 01/24/2018 Status: COMPLETED Source: STEGER 12:49 PM [facility] REPOSITORY HNO ID: [id number] Author: Gaston RobertsRn) BHARGAVI Gonzalez Service: Wound/Ostomy Author Type: Registered Nurse Type: Allied Health Filed: 01/24/2018 12:57 PM Note Text: ET/WOCN Nursing Consult Topic: ET/WOCN Consultation Note ET Outcome: WOC nursing to bedside for pouching of wound. Consulted with Dr. Webster (Urology) prior to encounter d/t high pt/family stress/anxiety. Currently minimizing caregivers. Per report, pt has an intact pouch in place placed by bedside nursing and no further WOC nursing needs today. Visit deferred. ET's Next Scheduled Visit: 01/26/18 for scheduled pouch change/assessment of needs Time Increment: 15 minutes REKHA Hughes, RN, CWOCN, [facility] PROGRESS Observed: 01/24/2018 Status: COMPLETED Source: STEGER 9:15 AM [facility] REPOSITORY HNO ID: [id number] Author: Ashok Rodriguez Service: Urology Author Type: Resident Type: Progress Notes Filed: 01/24/2018 9:19 AM Note Text: UROLOGY SERVICE PROGRESS NOTE PATIENT INFO: Tess Hall 37 year old DATE: 01/24/2018 S: Continued wound drainage overnight. Pain at incision. No subjective fevers/chills, tmax 100.2 @ 10pm, afebrile since. No n/v. PAST MEDICAL HISTORY Diagnosis Date - Depression - DM2 (diabetes mellitus, type 2) (HCC) - HLD (hyperlipidemia) - Hx of acute pyelonephritis - Morbid obesity (HCC) - Reactive airway disease - Renal mass - Smoker Exam: Patient Vitals for the past 8 hrs: BP Temp Temp src Pulse Resp SpO2 01/24/18 0713 103/71 36.5 ?C (97.7 ?F) Oral 94 18 97 % 01/24/18 0319 116/53 37.2 ?C (99 ?F) Oral 87 18 97 % Tmax: Temp (24hrs), Av.2 ?C (99 ?F), Min:36.5 ?C (97.7 ?F), Max:37.9 ?C (100.2 ?F) Intake/Output Summary (Last 24 hours) at 01/24/18 0915 Last data filed at 01/24/18 0630 Gross per 24 hour Intake 1100 ml Output 850 ml Net 250 ml UO: 850cc voided Drains: BP 103/71 Pulse 94 Temp 36.5 ?C (97.7 ?F) (Oral) Resp 18 Wt 134.4 kg (296 lb 4.8 oz) SpO2 97% BMI 49.31 kg/m? Gen: lying in bed in no acute distress Resp: Even, unlabored respirations Abd: morbidly obese, soft, left flank incision healed but quite erythematous and indurated w/ active purulent drainage : no serrano Extrem: SCDs Labs: Recent Labs 01/24/18 0020 01/23/18 1437 WBC 6.18 8.66 HB 9.4* 11.5 HCT 28.5* 34.6* PLT 243 300 NA 132* 131* K 3.8 4.0 CHLOR 95* 94* CO2 25 25 BUN 13 10 CREAT 0.82 0.56* GLUC 311* 353* Current hospital medications: albuterol HFA 90 mcg/actuation 2 Puff (PROVENTIL HFA, VENTOLIN HFA) 2 Puff INHALATION q 4 H PRN cyclobenzaprine 10 mg tab(s) (FLEXERIL) 10 mg ORAL TID PRN NaCl 0.9% iv infusion 100 mL/hr INTRAVENOUS CONTINUOUS ondansetron (PF) 4 mg injection (ZOFRAN) 4 mg INTRAVENOUS q 6 H PRN heparin 5,000 Units injection 5,000 Units SUBCUTANEOUS q 12 H dextrose 40 % 15 g 15 g ORAL PRN glucagon 1 mg injection (GLUCAGEN) 1 mg INTRAMUSCULAR PRN dextrose 50% in water 25 mL syringe 12.5 g INTRAVENOUS PRN insulin lispro injection (rapid acting) (HumaLOG) SUBCUTANEOUS q 6 H piperacillin-tazobactam 3.375 g in dextrose (iso-osmotic) 50 mL (ZOSYN) 3.375 g INTRAVENOUS q 6 H ketorolac 15 mg injection (TORADOL) 15 mg INTRAVENOUS q 6 H PRN vancomycin dosing and monitoring per pharmacy OTHER As Directed insulin glargine 20 Units pen (long acting) (LANTUS SOLOSTAR, BASAGLAR KWIKPEN) 20 Units SUBCUTANEOUS AT BEDTIME vancomycin 1.5 g in D5W 250 mL (VANCOCIN) 1.5 g INTRAVENOUS q 12 HR Imp/Plan: Tess Hall is a 37 year old female with PMH of DM2, HLD, incidental left renal mass s/p open left partial nephrectomy by Dr. Torres 12/09/2017 (final path RCC clear cell type, negative margins, pT3a) admitted from outside ED for ?wound infection and urine leak. Wound culture: prelim negative Blood cultures: prelim no growth <24hours ? -diabetic diet -IVF -empiric abx - vanc and zosyn, transition to PO tmrw -fluid creatinine from wound (apply pouch to capture enough fluid for creatinine specimen) -toradol for pain control -no stenting nor drain placement -dispo: likely home tmrw on PO abx ? The above was communicated to Dr. Torres Signature: Ashok Rodriguez MD Pager: [phone] personal, [phone] after hours/weekends Date of service: 01/24/2018 CBC Collected: 01/24/2018 Status: F Source: STEGER 12:20 AM [facility] [place] REPOSITORY TYPE CODE TESTS RESULT OUT OF REFERENCE UNITS RANGE LAB WBC 3.70-11.00 k/uL WBC 6.18 LAB RBC 3.90-5.20 m/uL Low RBC 3.56 LAB HGB 11.5-15.5 g/dL Low Hemoglobin 9.4 LAB HCT 36.0-46.0 % Low Hematocrit 28.5 LAB MCV 80.0-100.0 fL MCV 80.1 LAB MCH 26.0-34.0 pG MCH 26.4 LAB MCHC 30.5-36.0 g/dL MCHC 33.0 LAB RDWCV 11.5-15.0 % RDW-CV 13.7 LAB PLTCT 150-400 k/uL Platelet Count 243 LAB MPV 9.0-12.7 fL MPV 10.3 LAB ABSNUC <0.01 k/uL Absolute nRBC <0.01 Performed By: #### CBC, BMP #### [facility] [address] [place], [place] [address] BASIC METABOLIC PANL Collected: 01/24/2018 Status: F Source: STEGER 12:20 AM [facility] REPOSITORY TYPE CODE TESTS RESULT OUT OF REFERENCE UNITS RANGE LAB GLU 74-99 mg/dL High Glucose 311 Result Comment: The [place] Diabetes [employer] (ADA) provides guidance for cutoff values for fasting glucose and random glucose. The ADA defines fasting as no caloric intake for at least 8 hours. Fas ting plasma glucose results between 100 to 125 mg/dL indicate increased risk for diabetes (prediabetes). Fasting plasma glucose results greater than or equal to 126 mg/dL meet the criteria for diagnosis of diabetes. In the absence of unequivocal hyperglycemia, results should be confirmed by repeat testing. In a patient with classic symptoms of hyperglycemia or hyperglycemic crisis, random plasma glucose results greater than or equal to 200 mg/dL meet the criteria for diagnosis of diabetes. Reference: Standards of Medical Care in Diabetes 2016, [place] [employer]. Diabetes Care. 2016.39(Suppl 1). LAB BUN 7-21 mg/dL BUN 13 LAB CRET 0.58-0.96 mg/dL Creatinine 0.82 LAB NA 136-144 mmol/L Sodium Low 132 LAB K 3.7-5.1 mmol/L Potassium 3.8 LAB CL 97-105 mmol/L Chloride Low 95 LAB CO2 22-30 mmol/L CO2 25 LAB AGAP 9-18 mmol/L Anion Gap 12 LAB CA 8.5-10.2 mg/dL Calcium, Low Total 8.1 LAB GFRAA eGFR- Amer. >60 LAB GFRNAA . eGFR-All Other Races >60 Result Comment: eGFR (Estimated GFR) Units of measure: mL/min/1.73 meters squared eGFR is derived from the reexpressed MDRD Study equation using the following parameters: serum creatinine, age, gender and race. The creatinine assay has been calibrated to be traceable to IDMS. An eGFR <60 mL/min/1.73m2 for >3 months is consistent with chronic kidney disease. Refer to KDOQI guidelines for clinical interpretation. In patients with unstable renal function, e.g. those with acute kidney injury, the eGFR may not accurately reflect actual GFR. Performed By: #### CBC, BMP #### [email or web address] [address] [place], [place] [address] NURSING PROG Observed: 01/23/2018 Status: COMPLETED Source: STEGER 9:34 PM [facility] REPOSITORY HNO ID: [id number] Author: Dakota (Rn) BHARGAVI Pardo Service: Nursing Author Type: Registered Nurse Type: Nursing Progress Note Filed: 01/23/2018 10:27 PM Note Text: Nursing Progress Note Patient Name: Tess Hall Patient Location: [place] [address] Pt blood glucose 437. Urology on-call, Dr. Carrillo, notified. Patient given MAR order of Humalog 10units and Lantus 20units. No new orders received, will continue to monitor. This note was completed by: Dakota Pardo RN PROTIME Collected: 01/23/2018 Status: F Source: STEGER 8:46 PM [facility] REPOSITORY TYPE CODE TESTS RESULT OUT OF RANGE REFERENCE UNITS LAB PSEC 9.7-13.0 sec PT Sec 10.6 LAB INR 0.9-1.3 PT INR 1.0 Result Comment: Vitamin K Antagonist (VKA) Therapeutic Range: INR 2 to 3 (Target INR of 2.5) Note: For patients treated with VKA drugs, such as warfarin, the [place] [employer] 2012 Guideline recommends a therapeutic INR range of 2 to 3 (target INR of 2.5). This recommendation includes high-risk patients with antiphospholipid syndrome with previous arterial or venous thromboembolism, current-generation mechanical or bioprosthetic aortic heart valve replacement. Note: Patients with mechanical aortic valve replacement and additional risk factors for thromboembolic events (atrial fibrillation, previous thromboembolism, LV dysfunction, hypercoagulable conditions) or an older generation mechanical AVR (i.e., ball in-Cage) or any mechanical MVR should have a INR therapeutic range of 2.5 to 3.5 (target INR of 3). Louise GH, et al. Chest 2012, 141:7S-47S Alison RA, et al. JACC 2017, 70: 252-289 Performed By: #### PT, PTT #### [email or web address] [address] [place], [place] [address] APTT Collected: 01/23/2018 Status: F Source: STEGER 8:46 PM [facility] REPOSITORY TYPE CODE TESTS RESULT OUT OF RANGE REFERENCE UNITS LAB APTT 23.0-32.4 sec APTT 24.5 Result Comment: Unfractionated Heparin Therapeutic Ranges: Standard Heparin Nomogram: 53 to 78 seconds (anti-Xa level of 0.3 to 0.7 U/ml) Low Dose/ACS Nomogram: 49 to 67 seconds (anti-Xa level of 0.2 to 0.5 U/ml) Stroke Treatment Nomogram: 49 to 67 seconds (anti-Xa level of 0.2 to 0.5 U/ml) Note: The APTT therapeutic range has been determined for the current lot of laboratory APTT reagent in use throughout the [facility]. Performed By: #### PT, PTT #### [email or web address] [address] [place], [place] [address] CONSULT PROG Observed: 01/23/2018 Status: COMPLETED Source: STEGER 8:28 PM [facility] REPOSITORY HNO ID: [id number] Author: Elena Hand (Indirect Sales Representative) Service: Pharmacy Author Type: Pharmacist Type: Consult Progress Note Filed: 01/23/2018 8:37 PM Note Text: PHARMACY VANCOMYCIN DOSING NOTE Patient Name: Tess Hall Admission Date: 01/23/2018 Date of Consult: 01/23/2018 Time of Consult: 8:28 PM Indication: Skin/Soft tissue infection Goal Range: 10-20 mcg/mL RECOMMENDATIONS/PLAN: Pharmacy consulted for vancomycin dosing for Tess Hall, a 37 year old, female who is being treated with vancomycin for SSTI. 1. Patient is currently ordered no vancomycin (patient received [address] [facility] ED @1616 on 01/23/18). Today is day 1 of therapy. 2. No vancomycin level has been drawn for this dosing regimen. 3. Will schedule vancomycin to 1.5 g with a dosing interval of q12h, given patient weight >90 kg and CrCl>50 ml/min 4. The next vancomycin level will be ordered for 01/25/18 (prior to 5th dose, given BMI>40) unless clinically indicated sooner. (Pharmacy will order) We will follow patient renal function, vancomycin levels and doses with you during the course of therapy. Additional recommendations will appear in follow up notes. If you have any questions, please contact Elena Hand at [phone]. Age: [age] year old Allergies: ALLERGIES Allergen Reactions - Clindamycin Hives, Itching - Tylenol [Acetaminop* Hives, GI Upset 12/12: pt did not recall history of hives to pain mgmt, only minor GI upset Last 3 Encounter Wt Readings: Date: Wt: 01/23/2018 134.4 kg (296 lb 4.8 oz) 01/23/2018 136.1 kg (300 lb) 12/01/2017 151 kg (333 lb) Last 1 Encounter Ht Readings: Date: Ht: 12/18/2017 165.1 cm (5' 5) CrCl: >100 mL/min Temp (24hrs), Av.3 ?C (99.2 ?F), Min:37.3 ?C (99.2 ?F), Max:37.3 ?C (99.2 ?F) - Current Temp: 37.3 ?C (99.2 ?F) Labs BUN (mg/dL) Date Value 01/23/2018 10 12/28/2017 11 12/20/2017 10 Creatinine (mg/dL) Date Value 01/23/2018 0.56 (L) 12/28/2017 0.65 12/20/2017 0.66 WBC (k/uL) Date Value 01/23/2018 8.66 12/28/2017 6.92 12/20/2017 5.76 Vancomycin Levels: No results found for: BABS HAND, GREASER AND OILER PROGRESS Observed: 01/23/2018 Status: COMPLETED Source: STEGER 5:55 PM [facility] OTHER [facility] REPOSITORY HNO ID: [id number] Author: Salvador Huntley (Pharmacist) Service: Pharmacy Author Type: Pharmacist Type: Progress Notes Filed: 01/28/2018 3:11 PM Note Text: PHARMACY EMERGENCY DEPARTMENT CULTURE CALLBACK Patient Name:Vipul Hall Admission Date: 01/23/2018 Date of Callback: 01/28/2018 Patient Phone Number: n/a Patient reviewed with: Dr Maldonado ALLERGIES Allergen Reactions - Clindamycin Hives, Itching - Tylenol [Acetaminop* Hives, GI Upset 12/12: pt did not recall history of hives to pain mgmt, only minor GI upset Source of Result: Results List Time/Date of Result: 01/27/18 Type of Culture(s): wound Culture Results: Positive: MRSA Lab Results: n/a Home Medication List: Prior to Admission medications as of 12/18/17 2342 Medication Sig Last Dose Taking sulfamethoxazole-trimethoprim (BACTRIM DS,SEPTRA DS) 800-160 mg per tablet Take 1 tablet by mouth twice daily for 10 days. cephALEXin (KEFLEX) 500 mg capsule Take 1 capsule by mouth three times daily for 10 days. ondansetron (ZOFRAN) 4 mg tablet Take 1 tablet by mouth every 6 hours. polyethylene glycol 3350 (MIRALAX, GLYCOLAX) 17 gram packet Take 1 Packet by mouth once daily as needed (constipation). OXYGEN, HOME THERAPY, 2 L/min by Nasal Cannula route as directed. 2LPN via Nasal Cannula with exertion and during sleep with oxygen concentrator with back up oxygen tank and conserving device for ambulation. blood sugar diagnostic (FREESTYLE LITE STRIPS) test strip Use as instructed lancets (FREESTYLE LANCETS) 28 gauge misc 1 Stick three times daily. glipiZIDE (GLUCOTROL) 10 mg tablet Take 1 in am before breakfast and 1 before evening meal. insulin glargine (BASAGLAR KWIKPEN U-100 INSULIN) 100 unit/mL (3 mL) inpn Inject 20 Units subcutaneously daily at bedtime. docusate sodium (COLACE) 100 mg capsule Take 1 capsule by mouth twice daily. exenatide microspheres (BYDUREON SUBCUTANEOUS) Inject subcutaneously once each week. cyclobenzaprine (FLEXERIL) 10 mg tablet Take 1 tablet by mouth three times daily as needed for Muscle Spasm. fluticasone (FLOVENT HFA) 110 mcg/actuation inhaler Inhale 1 Puff as instructed twice daily. Rinse your mouth after each use. blood sugar diagnostic (FREESTYLE LITE STRIPS) test strip Test blood sugar(s)3daily. Dx: diabetes type 2 uncontrolled.. Insulin: No, titrating medication Lancets lancets Use as instructed up to 4 times daily metFORMIN (GLUCOPHAGE) 1,000 mg tablet Take 1 tablet by mouth twice daily with meals. Blood-Glucose Meter (FREESTYLE LITE METER) monitoring kit As directed albuterol HFA (PROVENTIL HFA, VENTOLIN HFA) 90 mcg/actuation inhaler Inhale 2 Puffs as instructed. Change in treatment needed: Yes: Change treatment medication Action Taken: Paged and forwarded to admitting/discharging physician Dr Maldonado (urology). Dr Maldonado responded that he would follow up with the patient. Follow up completed. Please page/call with any issues or questions. Electronic signature: Kayli Villegas January 28, 2018 3:08 PM Pager/Extension: Pager [phone] HISTORY PHYSICAL Observed: 01/23/2018 Status: COMPLETED Source: STEGER 4:35 PM [facility] REPOSITORY HNO ID: [id number] Author: Ankush (Medina Carrillo MD Service: Urology Author Type: Resident Type: HANDP Filed: 01/23/2018 8:12 PM Note Text: UROLOGY SERVICE HANDP NOTE PATIENT NAME: Tess Hall January 23, 2018 ASSESSMENT AND PLAN Tess Hall is a 37 year old female with PMH of DM2, HLD, incidental left renal mass s/p open left partial nephrectomy by Dr. Torres 12/09/2017 (final path RCC clear cell type, negative margins, pT3a) admitted from outside ED for ?wound infection and urine leak. CT reviewed - decreased perinephric fluid collection (possible urinoma), though with evidence of very minute focus of ongoing contrast extravasation. Exam with minor aspect of ? cellulitis + active drainage of thin yellow/brown purulent fluid from medial aspect of incision. Has very small urine leak, which may have resulted in subcutaneous fluid collection with resultant drainage from the incision. Non toxic appearing. Afebrile without leukocytosis. No hydronephrosis on CT and excellent renal function. Will treat overnight with IV antibiotics while awaiting cultures - plan to likely transition to PO antibiotics tomorrow. Will send creatinine from fluid expressed from wound to assess for urine leak. Given no hydronephrosis and decreased perinephric collection, no indication for stent placement (nome ureter with greater drainage capability than a stented ureter) and no need for percutaneous drain placement - fluid collection decreasing in size. Follow blood and urine cultures. -diabetic diet -IVF -follow blood cultures -empiric abx - vanc and zosyn overnight -local wound care - will pack with nugauze once pain appropriately controlled -fluid creatinine -toradol for pain control -no stenting or drain placement Seen with chief Dr. Hayes and discussed with staff Dr. Torres HPI Tess Hall is a 37 year old female with PMH of DM2, HLD, incidental left renal mass s/p open left partial nephrectomy by Dr. Torres 12/09/2017 (final path RCC clear cell type, negative margins, pT3a) admitted from outside ED for ?wound infection and urine leak. She had an uneventful post-operative course and was discharged on 12/15/[address] drain in place. She was re-admitted on 12/18/2017 for nausea and vomiting. CT from OSH reviewed and unremarkable - no hydro, no urine leak. She was treated conservatively, improved, and discharged home on 12/20/2017. Seen in clinic by Dr. Torres on 12/28/2017 - at that time doing quite well. She presented today to outside ED for evaluation of drainage from her flank wound. In the ED, initially tachycardic though with stable blood pressures. Given IV fluids, blood and urine cultures drawn. No leukocytosis with WBC 8.6. Hemoglobin 11.5. Renal function excellent with creatinine 0.56. Empiric vancomycin begun. CT A/P with IV contrast performed - final read notable for left flank subcutaneous collection, which appears to have spontaneously decompressed... Evolving postoperative changes related to partial left nephrectomy, with decreasing urinoma... Small discrete urine leak remains. PAST MEDICAL HISTORY Diagnosis Date - Depression - DM2 (diabetes mellitus, type 2) ([facility]) - HLD (hyperlipidemia) - Hx of acute pyelonephritis - Morbid obesity (HCC) - Reactive airway disease - Renal mass - Smoker PAST SURGICAL HISTORY Procedure Laterality Date - SECTION HX 2006 - TUBAL LIGATION HX 2006 FAMILY HISTORY Problem Relation Age of Onset - Blindness Maternal Grandmother Social History Substance Use Topics - Smoking status: Current Every Day Smoker Packs/day: 1.00 Types: Cigarettes - Smokeless tobacco: Never Used - Alcohol use No MEDICATIONS: Prior to Admission Medications: ondansetron (ZOFRAN) 4 mg tablet Take 1 tablet by mouth every 6 hours. polyethylene glycol 3350 (MIRALAX, GLYCOLAX) 17 gram packet Take 1 Packet by mouth once daily as needed (constipation). OXYGEN, HOME THERAPY, 2 L/min by Nasal Cannula route as directed. 2LPN via Nasal Cannula with exertion and during sleep with oxygen concentrator with back up oxygen tank and conserving device for ambulation. blood sugar diagnostic (FREESTYLE LITE STRIPS) test strip Use as instructed lancets (FREESTYLE LANCETS) 28 gauge misc 1 Stick three times daily. glipiZIDE (GLUCOTROL) 10 mg tablet Take 1 in am before breakfast and 1 before evening meal. insulin glargine (BASAGLAR KWIKPEN U-100 INSULIN) 100 unit/mL (3 mL) inpn Inject 20 Units subcutaneously daily at bedtime. docusate sodium (COLACE) 100 mg capsule Take 1 capsule by mouth twice daily. exenatide microspheres (BYDUREON SUBCUTANEOUS) Inject subcutaneously once each week. cyclobenzaprine (FLEXERIL) 10 mg tablet Take 1 tablet by mouth three times daily as needed for Muscle Spasm. fluticasone (FLOVENT HFA) 110 mcg/actuation inhaler Inhale 1 Puff as instructed twice daily. Rinse your mouth after each use. blood sugar diagnostic (FREESTYLE LITE STRIPS) test strip Test blood sugar(s)3daily. Dx: diabetes type 2 uncontrolled.. Insulin: No, titrating medication Lancets lancets Use as instructed up to 4 times daily metFORMIN (GLUCOPHAGE) 1,000 mg tablet Take 1 tablet by mouth twice daily with meals. Blood-Glucose Meter (FREESTYLE LITE METER) monitoring kit As directed albuterol HFA (PROVENTIL HFA, VENTOLIN HFA) 90 mcg/actuation inhaler Inhale 2 Puffs as instructed. Current hospital medications: iv contrast (radiology procedure) INTRAVENOUS DIRECTED PRN vancomycin 2 g in D5W 500 mL (VANCOCIN) 0.015 g/kg/dose INTRAVENOUS ONCE ALLERGIES: Clindamycin; Tylenol [Acetaminophen] COMPLETE REVIEW OF SYSTEMS: REVIEW OF SYSTEMS PAIN ASSESSMENT: + left flank pain GENERAL: no fevers HEENT: Negative for frequent or significant headaches NECK: Negative for significant neck swelling RESPIRATORY: on home O2 CARDIOVASCULAR: no chest pain GI: no emesis : See HPI MUSCULOSKELETAL: L flank pain SKIN: See HPI PSYCH: Negative for sleep disturbance, mood disorder and recent psychosocial stressors HEMATOLOGY/LYMPHOLOGY: Negative for prolonged bleeding, bruising easily or swollen nodes ENDOCRINE: + DM on insulin NEURO: no hx stroke No data found. PHYSICAL EXAM: Gen: No apparent distress, appears stated age, well-nourished, supine in hospital bed, appropriate affect Eyes: Anicteric, conjugate gaze Head/Neck: Normocephalic, atraumatic Pulmonary: Clear to auscultation bilaterally, symmetric and equal chest rise, unlabored breathing on room air. Cardiac: Regular rate and rhythm Abdomen: obese, soft, tender LLQ, no rebound or guarding : left flank incision red and tender - consistent with local cellulitis. 1cm opening at medial aspect of wound actively draining thin yellow/brown liquid with manual expression, though no palpable fluctuance underlying. Extremities: no lower extremity edema bilaterally Neuro: Alert and oriented x 3. Recent Labs 01/23/18 1437 WBC 8.66 HB 11.5 HCT 34.6* PLT 300 NA 131* K 4.0 CHLOR 94* CO2 25 CREAT 0.56* BUN 10 GLUC 353* TPROT 7.5 ALB 3.3* CA 8.8 ALKPHOS 124* TBILI 0.6 AST 12* ALT 12 IMAGING: CT reviewed Ankush Carrillo MD PGY-2, Urology Pager [phone] Urology deputy commonwealth's attorney after 5pm weekdays and all weekends: [id number] January 23, 2018 4:[address] ABD/PEL W IVCON Observed: 01/23/2018 Status: F Source: STEGER 3:42 PM CLINIC OTHER CAMPUS REPOSITORY * * *Final Report* * * DATE OF EXAM: Jan 23 2018 3:42PM [facility] [place]/PEL W IVCON / PROCEDURE REASON: Abd pain, fever, no recent surgery * * * * Physician Interpretation * * * * CT ABDOMEN AND PELVIS WITH IV CONTRAST 01/23/2018 3:42 PM HISTORY: Abd pain, fever, no recent surgery, c/o LLQ abscess that burst this afternoon TECHNIQUE: CT of the abdomen and pelvis was performed using standard technique, scanning from just above the dome of the diaphragm to the symphysis pubis. MQ: CTAP_3 Contrast: IV: 150 mL of Omnipaque 300 Oral: None. CT Radiation dose: Integrated Dose-length product (DLP) for this visit = 2351 mGy*cm. CT Dose Reduction Employed: No dose reduction techniques were required COMPARISON: Outside CT 12/18/2017 RESULT: Liver: No mass. Normal morphology. Biliary: No bile duct dilation. Gallbladder is unremarkable. Spleen: No mass. No splenomegaly. Pancreas: No mass or duct dilation. Adrenals: No mass. Kidneys: Excision of left renal tumor noted previously. Decreased posterior perinephric collection of mostly fluid, with small gas foci. Decreased perinephric inflammation. Small focal urine leak with calyceal contrast extravasation into the collection (2:71). Surgical drain removed. Normal right kidney and bladder. GI tract: Infraumbilical ventral midline hernia containing segments of small bowel, without obstruction or interval change. Lymph nodes: No abdominal or pelvic lymphadenopathy. Mesentery/Peritoneum: No free air or fluid collection. Retroperitoneum: No mass or hematoma. Vasculature: The celiac axis and SMA are patent. The portal vein and branches, splenic vein, SMV, and hepatic veins are patent. No abdominal aortic or iliac artery aneurysm. Pelvis: No masses identified. Bones/Soft Tissues: Partially resected left 11th rib. Small fluid and gas collection of the subcutaneous soft tissues anteriorly (2:88) with focal defect of left flank. Collection has a deflated appearance given concave contours. Lower thorax: Linear right basilar atelectasis/scar. - - IMPRESSION: LEFT FLANK SUBCUTANEOUS COLLECTION, WHICH APPEARS TO HAVE SPONTANEOUSLY DECOMPRESSED. EVOLVING POSTOPERATIVE CHANGES RELATED TO PARTIAL LEFT NEPHRECTOMY, WITH DECREASING URINOMA. SMALL DISCRETE URINE LEAK REMAINS. 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 Transcribe Date/Time: Jan 23 2018 4:07P Dictated by : YOSEF COVARRUBIAS MD This examination was interpreted and the report reviewed and electronically signed by: YOSEF COVARRUBIAS MD on Jan 23 2018 4:18PM EST [id number] Observed: 01/23/2018 Status: F Source: STEGER BLOOD CULTURE 2:40 PM CLINIC OTHER CAMPUS REPOSITORY Culture Result - No growth 5 days Performed By: #### BLCUL #### [email or web address] [address] [place], [place] [address] WOUND Observed: 01/23/2018 Status: F Source: STEGER CULTURE/STAIN 2:39 PM [facility] REPOSITORY Sp. Request/Comment: - Eswab Smear Result - No organisms seen Few Polymorphonuclear leukocytes Rare Mononuclear cells Culture Result - Rare Methicillin resistant Staphylococcus aureus --> ABNORMAL ALERT Rare skin maddie ORGANISM: Methicillin resistant Staphylococcus aureus METHOD: Minimum inhibitory concentration(Vitek) Antibiotic Interp PATTI Status Erythromycin SUSCEPTIBLE <=0.25 F Clindamycin SUSCEPTIBLE 0.25 F Tetracycline SUSCEPTIBLE <=1 F Vancomycin SUSCEPTIBLE <=0.5 F Oxacillin RESISTANT >=4 F Oxacillin resistant staphylococci are resistant to all beta lactam antibiotics (except new cephalosporins with anti MRSA activity). Trimeth sulfameth SUSCEPTIBLE <=10 F Gentamicin SUSCEPTIBLE <=0.5 F Rifampin SUSCEPTIBLE <=0.5 F Rifampin should not be used alone for antimicrobial therapy. Daptomycin SUSCEPTIBLE 0.25 F Linezolid SUSCEPTIBLE 2 F Doxycycline SUSCEPTIBLE <=0.5 F Performed By: #### WCUL #### [email or web address] [address] [place], [place] [address] ED PROV NOTE Observed: 01/23/2018 Status: COMPLETED Source: STEGER 2:38 PM [facility] REPOSITORY HNO ID: [id number] Author: Melanie Cordon MD Service: (none) Author Type: Physician Type: ED Provider Notes Filed: 01/23/2018 7:32 PM Note Text: ED Provider Note Patient Name: Tess Hall SERVICE DATE: 01/23/18 History Patient presents with: Wound Check Post Op Drainage 37-year-old female, with a history of morbid obesity, diabetes, hyperlipidemia, status post partial nephrectomy from renal cell carcinoma, presents for abdominal pain and wound check. For 3 or 4 days she's had some pain to her left flank. Today her sister looked and noted an abscess. If she was getting out of the car today the abscess popped and she started noticing a large amount of fluid. She's had some chills but no fever. She's had generalized malaise. She is unsure what her recent blood sugars have been. She sees Dr. Torres in nephrology [facility]. She does not require chemotherapy or radiation as they feel they got all of the carcinoma from the nephrectomy. She is urinating without problem History provided by: Patient PAST MEDICAL HISTORY Diagnosis Date - Depression - DM2 (diabetes mellitus, type 2) (HCC) - HLD (hyperlipidemia) - Hx of acute pyelonephritis - Morbid obesity (HCC) - Reactive airway disease - Renal mass - Smoker PAST SURGICAL HISTORY Procedure Laterality Date - SECTION HX 2006 - TUBAL LIGATION HX 2006 FAMILY HISTORY Problem Relation Age of Onset - Blindness Maternal Grandmother Social History Social History Main Topics - Smoking status: Current Every Day Smoker Packs/day: 1.00 Types: Cigarettes - Smokeless tobacco: Never Used - Alcohol use No - Drug use: No - Sexual activity: Not on file ALLERGIES Allergen Reactions - Clindamycin Hives, Itching - Tylenol [Acetaminop* Hives, GI Upset 12/12: pt did not recall history of hives to pain mgmt, only minor GI upset Review of Systems Constitutional: Positive for chills and fatigue. Negative for fever. HENT: Negative. Eyes: Negative. Respiratory: Negative for cough and shortness of breath. Cardiovascular: Negative for chest pain. Gastrointestinal: Positive for abdominal pain. Negative for diarrhea, nausea and vomiting. Endocrine: Negative. Genitourinary: Positive for flank pain. Negative for difficulty urinating and dysuria. Musculoskeletal: Negative for back pain. Skin: Positive for wound. Neurological: Negative for weakness, light-headedness, numbness and headaches. Hematological: Negative. Psychiatric/Behavioral: Negative. Physical Exam BP 135/79 Pulse 126 Temp (Src) 98.3 (Oral) Resp 20 Wt 300 lb (136.1kg) SpO2 99% Physical Exam Constitutional: She is oriented to person, place, and time. She appears well-developed and well-nourished. She appears distressed (mildly from pain; non toxic). HENT: Head: Normocephalic. Eyes: Conjunctivae are normal. Neck: Normal range of motion. Cardiovascular: Regular rhythm and normal heart sounds. Tachycardia present. Pulmonary/Chest: Effort normal and breath sounds normal. No respiratory distress. Abdominal: Soft. Bowel sounds are normal. There is tenderness. Patient has an abdominal wall abscess to the left flank at the site of her surgical wound. Copious amount of purulent drainage noted. Musculoskeletal: Normal range of motion. Neurological: She is alert and oriented to person, place, and time. No cranial nerve deficit. Skin: See Abd Psychiatric: She has a normal mood and affect. Nursing note and vitals reviewed. Diagnostic Testing ED Labs Ordered and Reviewed CBC + DIFF - Abnormal; Notable for the following: Result Value Ref Range Hematocrit 34.6 (*) 36.0 - 46.0 % All other components within normal limits COMP METABOLIC PANEL - Abnormal; Notable for the following: Albumin 3.3 (*) 3.9 - 4.9 g/dL Alkaline Phosphatase 124 (*) 34 - 123 U/L AST 12 (*) 13 - 35 U/L Glucose 353 (*) 74 - 99 mg/dL Creatinine 0.56 (*) 0.58 - 0.96 mg/dL Sodium 131 (*) 136 - 144 mmol/L Chloride 94 (*) 97 - 105 mmol/L All other components within normal limits CRITICAL CARE PROFILE VENOUS - Abnormal; Notable for the following: Carboxyhemoglobin, Venous 3.3 (*) 0.0 - 2.5 % Lactate 2.3 (*) 0.5 - 2.2 mmol/L Oxyhemoglobin, Venous 26.6 (*) 60.0 - 85.0 % Bicarbonate, Venous 27.8 (*) 22.0 - 26.0 mmol/L Venous Total Hemoglobin 11.5 (*) 12.0 - 16.0 g/dL All other components within normal limits BLOOD CULTURE DRAW BLOOD CULTURE DRAW WOUND CULTURE AND GRAM STAIN CT abd pel: spontaneously draining fluid collection Procedures-none ED Course / Clinical Impression Clinical Impressions as of Jan 23 1658 Abdominal wall abscess Renal mass Diabetes mellitus type 2, uncontrolled, without complications (HCC) Essential hypertension Morbid obesity (HCC) MDM / Disposition / Plan Patient presents to the emergency department for abdominal wall abscess to the left flank the area of her partial nephrectomy. It's been about 3 or 4 days. Copious amount of drainage is noted. She is tachycardic. The patient is mildly distressed from discomfort but is nontoxic. Afebrile. Blood cultures and wound cultures are sent. Awaiting CT Patient CT showing a fluid collection with spontaneous drainage. Her tachycardia improves. Lactate 2.3. White count is normal. Blood cultures and wound cultures pending. She'll be transferred to [facility] with Dr. Torres as the accepting physician. Additional Tests or Interventions: IV Fluids IV fluids were given for the following reasons routine maintenance. The patient was TRANSFERRED to: [facility] Condition at time of disposition: stable SIGNATURE: SWEETIE Palmer (Pa) 01/23/18 1659 Attending Note I have personally performed a face to face assessment of the patient and have reviewed the PA/ETCHED CIRCUIT PROCESSOR note. My campbell findings include: History is Patient is a 37-year-old female coming in with left wound drainage and left side pain. He shouldn't had a partial nephrectomy for renal cell carcinoma 12/09/2017. She states initially she was feeling well however the last couple days she's had increased pain in her left flank and abdomen. The patient has had chills. When she got out of the car she states the abscess pop and now she is having a large amount of fluid coming from her incision on the left side Exam is patient has an incision in her left abdomen with a large amount of pus draining from just with examination. Most of the incision is intact. Diffuse abdominal tenderness Assessment/Plan are white blood cell count was 8. Lactate was 2.3. CAT scan showed a left flank subcutaneous collection which appears to have spontaneously decompressed. Patient was transferred to [facility] for postoperative care. She was given Zosyn and vancomycin. Other additions or changes: None Signature: Melanie Cordon MD Date: 01/23/2018 Time: 7:27 PM Melanie Cordon MD 01/23/181931 CBC AND DIFFERENTIAL Collected: 01/23/2018 Status: F Source: STEGER 2:37 PM [facility]IN[facility] OTHER CAMPUS REPOSITORY TYPE CODE TESTS RESULT OUT OF REFERENCE UNITS RANGE LAB WBC 3.70-11.00 k/uL WBC 8.66 LAB RBC 3.90-5.20 m/uL RBC 4.28 LAB HGB 11.5-15.5 g/dL Hemoglobin 11.5 LAB HCT 36.0-46.0 % Low Hematocrit 34.6 LAB MCV 80.0-100.0 fL MCV 80.8 LAB MCH 26.0-34.0 pG MCH 26.9 LAB MCHC 30.5-36.0 g/dL MCHC 33.2 LAB RDWCV 11.5-15.0 % RDW-CV 13.8 LAB PLTCT 150-400 k/uL Platelet Count 300 LAB MPV 9.0-12.7 fL MPV 10.2 LAB ANEUT % Neut% 73.2 LAB AANEUT 1.45-7.50 k/uL Abs Neut 6.33 LAB ALYMP % Lymph% 17.4 LAB AALYMP 1.00-4.00 k/uL Abs Lymph 1.51 LAB AMONO % Martin% 8.4 LAB AAMONO <0.87 k/uL Abs Martin 0.73 LAB AEOS % Eosin% 0.8 LAB AAEOS <0.46 k/uL Abs Eosin 0.07 LAB ABASO % Baso% 0.2 LAB AABASO <0.11 k/uL Abs Baso <0.03 Performed By: #### CBCDIF, CMP #### [facility] [address] [place] [address] COMP METABOLIC PANEL Collected: 01/23/2018 Status: F Source: STEGER 2:37 PM [facility]IN[facility] OTHER CAMPUS REPOSITORY TYPE CODE TESTS RESULT OUT OF REFERENCE UNITS RANGE LAB TP 6.3-8.0 g/dL Protein, Total 7.5 LAB ALB 3.9-4.9 g/dL Low Albumin 3.3 LAB CA 8.5-10.2 mg/dL Calcium, Total 8.8 LAB TBIL 0.2-1.3 mg/dL Bilirubin, Total 0.6 LAB ALKP 34-123 U/L Alkaline High Phosphatase 124 LAB AST 13-35 U/L Low AST 12 LAB GLU 74-99 mg/dL Glucose High 353 Result Comment: The [place] [employer] (ADA) provides guidance for cutoff values for fasting glucose and random glucose. The ADA defines fasting as no caloric intake for at least 8 hours. Fas ting plasma glucose results between 100 to 125 mg/dL indicate increased risk for diabetes (prediabetes). Fasting plasma glucose results greater than or equal to 126 mg/dL meet the criteria for diagnosis of diabetes. In the absence of unequivocal hyperglycemia, results should be confirmed by repeat testing. In a patient with classic symptoms of hyperglycemia or hyperglycemic crisis, random plasma glucose results greater than or equal to 200 mg/dL meet the criteria for diagnosis of diabetes. Reference: Standards of Medical Care in Diabetes 2016, [place] [employer]. Diabetes Care. 2016.39(Suppl 1). LAB BUN 7-21 mg/dL BUN 10 LAB CRET 0.58-0.96 mg/dL Creatinine Low 0.56 LAB NA 136-144 mmol/L Sodium Low 131 LAB K 3.7-5.1 mmol/L Potassium 4.0 LAB CL 97-105 mmol/L Chloride Low 94 LAB CO2 22-30 mmol/L CO2 25 LAB AGAP 9-18 mmol/L Anion Gap 12 LAB ALT 7-38 U/L ALT 12 LAB GFRAA eGFR- Amer. >60 LAB GFRNAA . eGFR-All Other Races >60 Result Comment: eGFR (Estimated GFR) Units of measure: mL/min/1.73 meters squared eGFR is derived from the reexpressed MDRD Study equation using the following parameters: serum creatinine, age, gender and race. The creatinine assay has been calibrated to be traceable to IDMS. An eGFR <60 mL/min/1.73m2 for >3 months is consistent with chronic kidney disease. Refer to KDOQI guidelines for clinical interpretation. In patients with unstable renal function, e.g. those with acute kidney injury, the eGFR may not accurately reflect actual GFR. Performed By: #### CBCDIF, CMP #### [facility] [address] [facility] [phone] Observed: 01/23/2018 Status: F Source: [facility] BLOOD CULTURE 2:32 PM [facility] REPOSITORY Sp. Request/Comment: - The blood culture bottles are underfilled. Adding volume lower or higher than the 8 to 10 mL per bottle, which is the manufacturers recommended volume, may adversely affect the re covery and/or detection of organisms. 8.7ML Culture Result - No growth 5 days Performed By: #### BLCUL #### [facility] [address] [place], [place] [address] ED NOTE Observed: 01/23/2018 Status: COMPLETED Source: STEGER 2:20 PM [facility] REPOSITORY HNO ID: [id number] Author: Ankush (Rn) BHARGAVI Gamez Service: (none) Author Type: Registered Nurse Type: ED Notes Filed: 01/23/2018 3:11 PM Note Text: Pt to ED today CC of wound drainage/ Pt sts she had a tumor removed from her L kidney in november. She presented to an urgent care today for draining around the wound and was sent to the ED. CBC Collected: 12/28/2017 Status: F Source: STEGER 2:09 PM [facility] REPOSITORY TYPE CODE TESTS RESULT OUT OF REFERENCE UNITS RANGE LAB WBC 3.70-11.00 k/uL WBC 6.92 LAB RBC 3.90-5.20 m/uL RBC 4.26 LAB HGB 11.5-15.5 g/dL Hemoglobin 11.5 LAB HCT 36.0-46.0 % Hematocrit 36.9 LAB MCV 80.0-100.0 fL MCV 86.6 LAB MCH 26.0-34.0 pG MCH 27.0 LAB MCHC 30.5-36.0 g/dL MCHC 31.2 LAB RDWCV 11.5-15.0 % RDW-CV 13.9 LAB PLTCT 150-400 k/uL Platelet Count 342 LAB MPV 9.0-12.7 fL MPV 9.5 LAB ABSNUC <0.01 k/uL Absolute nRBC <0.01 Performed By: #### CBC, BMP #### [facility] [address] [address] BASIC METABOLIC PANL Collected: 12/28/2017 Status: F Source: STEGER 2:09 PM [facility] REPOSITORY TYPE CODE TESTS RESULT OUT OF REFERENCE UNITS RANGE LAB GLU 74-99 mg/dL High Glucose 104 Result Comment: The [place] Diabetes Association (ADA) provides guidance for cutoff values for fasting glucose and random glucose. The ADA defines fasting as no caloric intake for at least 8 hours. Fas ting plasma glucose results between 100 to 125 mg/dL indicate increased risk for diabetes (prediabetes). Fasting plasma glucose results greater than or equal to 126 mg/dL meet the criteria for diagnosis of diabetes. In the absence of unequivocal hyperglycemia, results should be confirmed by repeat testing. In a patient with classic symptoms of hyperglycemia or hyperglycemic crisis, random plasma glucose results greater than or equal to 200 mg/dL meet the criteria for diagnosis of diabetes. Reference: Standards of Medical Care in Diabetes 2016, [place] [employer]. Diabetes Care. 2016.39(Suppl 1). LAB BUN 7-21 mg/dL BUN 11 LAB CRET 0.58-0.96 mg/dL Creatinine 0.65 LAB NA 136-144 mmol/L Sodium 137 LAB K 3.7-5.1 mmol/L Potassium 4.4 LAB CL 97-105 mmol/L Chloride 100 LAB CO2 22-30 mmol/L CO2 28 LAB AGAP 9-18 mmol/L Anion Gap 9 LAB CA 8.5-10.2 mg/dL Calcium, Total 8.8 LAB GFRAA eGFR- Amer. >60 LAB GFRNAA . eGFR-All Other Races >60 Result Comment: eGFR (Estimated GFR) Units of measure: mL/min/1.73 meters squared eGFR is derived from the reexpressed MDRD Study equation using the following parameters: serum creatinine, age, gender and race. The creatinine assay has been calibrated to be traceable to IDMS. An eGFR <60 mL/min/1.73m2 for >3 months is consistent with chronic kidney disease. Refer to KDOQI guidelines for clinical interpretation. In patients with unstable renal function, e.g. those with acute kidney injury, the eGFR may not accurately reflect actual GFR. Performed By: #### CBC, BMP #### [email or web address] [address] [address] CNOV Observed: 12/28/2017 Status: COMPLETED Source: STEGER 1:00 PM [facility] REPOSITORY Office Visit (UROLMN) TESS HALL ([id number]) 1980 F Date Time Provider Department 12/28/17 1:00 PM HEATHER TORRES During your visit today, we recorded the following information about you: Pulse Blood pressure 97/minute 150/98 Heather Torres MD 12/28/2017 1:[address] [facility] HISTORY OF PRESENT ILLNESS December 28, 2017 37 year old, female Hx morbid obesity, DM2, smoker who presents for evaluation for incidental left renal mass Hx incidental left renal mass, first identified in 2014 Hx complicated UTI / right pyelonephritis 06/30/17 (UA today with leuks) Repeat imaging 06/2017 showed slightly enlarged left mass Hx of prior - c/b infection requiring wound opening and packing - hesitant for surgery Saw [facility], offered radical nephrectomy - here for second opinion DM2 on insulin and metformin Active smoker Body mass index is 51.09 kg/m?. Hilar per CT, adjacent to rneal arteries, solid enhancing From [place] No recent labs or CXR I rev'd CT and just below and behind hilum, will be challenge but appears amenable L OPN and given age, we advised L flank, L OPN We advised surgery in 4 mo, lose wt in interim CT with 3 cm L renal mass, susp RCC, central, all endo, 2- 3 arteries on L, tumor is more posterior L flank, L OPN 12/08/17 OR went well, EBL 150-200, saved 75%, removed tumor off of posterior aspect of hilum and of posterior aspect of CS. 12/18/17: ER visit, labs all fine, Scr 0.5, W 6-7, hg 10-11, CT with apparently just postop changes. I rev'd CT and appears just normal postop changes, study was done with contrast and looks good overall. No obstruction on the stufy, no hydro, bowels fine, cult neg. Interval History Path reveals: RCC, clear cell type, negative margins. Tumor invades perinephric adipose tissue. pT3a L sided abdominal and back pain about 7 /10 not using any medications for pain, did not tolerate opiates , had vomiting from them Denies f/c/n/v Voiding well Hematuria denies BM nl Appetite nl Energy nl PE NAD, pleasant Abdomen soft non tender, BS present Incision with mild erythema, no discharge observed, [address] Removed all murtaza, pt tolerated procedured Yadiel Wells PA-C I have personally performed a face to face diagnostic evaluation on this patient including a review of the history as outlined above . My assessment and plan follows: A/P Prog well, all appears to be healing well Check labs, to be drawn RTC 5 mo, we will order this later Advised tylenol for pain Heather Torres MD Referring Provider: SELF [[id number]] Allergies As of Date: 12/28/2017 Noted Allergy Reaction CLINDAMYCIN 08/17/2017 4 - Hives 9 - Itching TYLENOL (ACETAMINOPHEN) 08/17/2017 4 - Hives 8 - GI Upset Comments: 12/12: pt did not recall history of hives to pain mgmt, only minor GI upset Date Reviewed: 12/28/2017 Reviewed by: Arina Ye Ma - Fully Assessed Primary Visit Diagnosis:Renal cell carcinoma of left kidney (HCC) [C64.2] Other Visit Diagnosis:Screening for genitourinary condition [Z13.89] Prescriptions as of 12/28/2017 Sig: ONDANSETRON HCL 4 MG TABLET Take 1 tablet by mouth every * POLYETHYLENE GLYCOL 3350 17 G* Take 1 Packet by mouth once d* OXYGEN (HOME THERAPY) 2 L/min by Nasal Cannula rout* BLOOD SUGAR DIAGNOSTIC STRIPS Use as instructed LANCETS 28 GAUGE 1 Stick three times daily. GLIPIZIDE 10 MG TABLET Take 1 in am before breakfast* INSULIN GLARGINE (U-100) 100 * Inject 20 Units subcutaneousl* DOCUSATE SODIUM 100 MG CAPSULE Take 1 capsule by mouth twice* BYDUREON SUBCUTANEOUS Inject subcutaneously once ea* CYCLOBENZAPRINE 10 MG TABLET Take 1 tablet by mouth three * FLUTICASONE 110 MCG/ACTUATION* Inhale 1 Puff as instructed t* BLOOD SUGAR DIAGNOSTIC STRIPS Test blood sugar(s)3daily. D* LANCETS Use as instructed up to 4 azar* METFORMIN 1,000 MG TABLET Take 1 tablet by mouth twice * BLOOD-GLUCOSE METER KIT As directed ALBUTEROL SULFATE HFA 90 MCG/* Inhale 2 Puffs as instructed. Problem List As Of Date 12/28/2017 Noted Resolved Diabetes mellitus type 2, uncontrolled, without*INVALID FOR* Asthma with COPD with exacerbation (HCC) [J44.1*INVALID FOR*06/28/2015 HTN (hypertension) [I10] INVALID FOR* Anxiety [F41.9] INVALID FOR* Asthma [J45.909] INVALID FOR* Non morbid obesity [E66.9] INVALID FOR* NO SHOW INVALID FOR* Renal mass [N28.89] INVALID FOR* Morbid obesity (HCC) [E66.01] INVALID FOR* Obesity, Class III, BMI >= 40 [E66.01] INVALID FOR* Nicotine use disorder, F17.2 [F17.200] INVALID FOR* Dehydration [E86.0] INVALID FOR* Disposition: Return in about 5 months (around 05/30/2018). Follow-up and Disposition History Recorded Encounter Status:Closed by HEATHER TORRES MD on 12/28/17 PROGRESS Observed: 12/28/2017 Status: COMPLETED Source: STEGER 12:56 PM [facility] [place] REPOSITORY HNO ID: [id number] Author: Heather Torres Service: (none) Author Type: Physician Type: Progress Notes Filed: 12/28/2017 1:53 PM Note Text: [facility] HISTORY OF PRESENT ILLNESS December 28, 2017 37 year old, female Hx morbid obesity, DM2, smoker who presents for evaluation for incidental left renal mass Hx incidental left renal mass, first identified in 2014 Hx complicated UTI / right pyelonephritis 06/30/17 (UA today with leuks) Repeat imaging 06/2017 showed slightly enlarged left mass Hx of prior - c/b infection requiring wound opening and packing - hesitant for surgery Saw [place], offered radical nephrectomy - here for second opinion DM2 on insulin and metformin Active smoker Body mass index is 51.09 kg/m?. Hilar per CT, adjacent to rneal arteries, solid enhancing From [place] No recent labs or CXR I rev'd CT and just below and behind hilum, will be challenge but appears amenable L OPN and given age, we advised L flank, L OPN We advised surgery in 4 mo, lose wt in interim CT with 3 cm L renal mass, susp RCC, central, all endo, 2- 3 arteries on L, tumor is more posterior L flank, L OPN 12/08/17 OR went well, EBL 150-200, saved 75%, removed tumor off of posterior aspect of hilum and of posterior aspect of CS. 12/18/17: ER visit, labs all fine, Scr 0.5, W 6-7, hg 10-11, CT with apparently just postop changes. I rev'd CT and appears just normal postop changes, study was done with contrast and looks good overall. No obstruction on the stufy, no hydro, bowels fine, cult neg. Interval History Path reveals: RCC, clear cell type, negative margins. Tumor invades perinephric adipose tissue. pT3a L sided abdominal and back pain about 7 /10 not using any medications for pain, did not tolerate opiates , had vomiting from them Denies f/c/n/v Voiding well Hematuria denies BM nl Appetite nl Energy nl PE NAD, pleasant Abdomen soft non tender, BS present Incision with mild erythema, no discharge observed, [address] Removed all murtaza, pt tolerated procedured Yadiel Wells PA-C I have personally performed a face to face diagnostic evaluation on this patient including a review of the history as outlined above . My assessment and plan follows: A/P Prog well, all appears to be healing well Check labs, to be drawn RTC 5 mo, we will order this later Advised tylenol for pain Heather Torres MD CODING SUMMARY. Observed: 12/20/2017 Status: F Source: [facility] [place] 1:17 PM [facility] REPOSITORY CODING DATE: 12/20/2017 FINAL [facility] STATUS: Short-Term Hosp as IP PAYOR: Medicaid EAPG DESCRIPTION 0496 MINOR PHARMACOTHERAPY 0495 MINOR CHEMOTHERAPY DRUGS 0457 VENIPUNCTURE 0408 LEVEL I HEMATOLOGY TESTS 0403 ORGAN OR DISEASE ORIENTED PANELS 0400 LEVEL I CHEMISTRY TESTS 0300 CAT SCAN - ABDOMEN 0490 INCIDENTAL TO MEDICAL, SIGNIFICANT PROCEDURE OR THERAPY VISIT 0628 ABDOMINAL PAIN 0111 PHARMACOTHERAPY EXCEPT BY EXTENDED INFUSION ADMIT DX: REASON FOR VISIT DX: R10.9 Unspecified abdominal pain FINAL DX: PRINCIPAL: R10.9 Unspecified abdominal pain SECONDARY: R11.2 Nausea with vomiting, unspecified F17.210 Nicotine dependence, cigarettes, uncomplicated Z90.5 Acquired absence of kidney PYMT PROC EAPG STAT DESCRIPTION DOCTOR NAME DATE NOTE: The code number assigned matches the documented diagnosis and / or procedure in the patient's chart. However, the narrative phrase printed from the coding software may appear abbreviated, or result in slightly different terminology. Coded By: Alecia Thorne Date Saved: 12/20/2017 01:17 pm CODING SUMMARY. Observed: 12/20/2017 Status: UNK Source: [facility] [place] 1:17 PM [facility]ICAL [facility]ENTER REPOSITORY CODING DATE: 12/20/2017 FINAL [facility] STATUS: Short-Term Hosp as IP PAYOR: Medicaid EAPG DESCRIPTION 0496 MINOR PHARMACOTHERAPY 0495 MINOR CHEMOTHERAPY DRUGS 0457 VENIPUNCTURE 0408 LEVEL I HEMATOLOGY TESTS 0403 ORGAN OR DISEASE ORIENTED PANELS 0400 LEVEL I CHEMISTRY TESTS 0300 CAT SCAN - ABDOMEN 0490 INCIDENTAL TO MEDICAL, SIGNIFICANT PROCEDURE OR THERAPY VISIT ADMIT DX: REASON FOR VISIT DX: R10.9 Unspecified abdominal pain FINAL DX: PRINCIPAL: R10.9 Unspecified abdominal pain SECONDARY: R11.2 Nausea with vomiting, unspecified F17.210 Nicotine dependence, cigarettes, uncomplicated Z90.5 Acquired absence of kidney PYMT PROC EAPG STAT DESCRIPTION DOCTOR NAME DATE NOTE: The code number assigned matches the documented diagnosis and / or procedure in the patient's chart. However, the narrative phrase printed from the coding software may appear abbreviated, or result in slightly different terminology. Coded By: Alecia Thorne Date Saved: 12/20/2017 01:17 pm PROGRESS Observed: 12/20/2017 Status: COMPLETED Source: STEGER 7:45 AM [facility] [place] REPOSITORY HNO ID: [id number] Author: Stefania Hayes MD Service: Urology Author Type: Resident Type: Progress Notes Filed: 12/20/2017 10:14 AM Note Text: UROLOGY RESIDENT PROGRESS NOTE Name: Tess Hall Bed: [id number] Date: December 20, 2017 Subjective - Yesterday APMS saw pt. No note but per report stated no concern for withdrawal, ordered tramadol prn pain - Doing okay today, feeling better than admission. Has f/u appointment tomorrow am and wondering if murtaza can be removed today -Pain: Well controlled, feels Flexeril was helping (Oxycodone d/c) -N/V : none, tolerating PO -Bowel function: Yes, had flatus and BM - Voiding w/o issue Objective Vital Signs Patient Vitals for the past 8 hrs: Height 12/20/17 0210 165.1 cm (5' 5) Input and Output Intake/Output Summary (Last 24 hours) at 12/20/17 0745 Last data filed at 12/20/17 0558 Gross per 24 hour Intake 3246 ml Output 338 ml Net 2908 ml Physical Exam General: WDWN in NAD HEENT: Normocephalic, atraumatic, conjugate gaze CV: Reg rate, warm, well-perfused, Hemodynamically stable Resp: breathing comfortably on NC GI: Soft, nontender, nondistended. No rebound or guarding. Morbidly obese : voiding freely Wound: murtaza in place over L flank incision, mild erythema over incision but otherwise c/d/i w/o induration or drainage. DAVID in place ss Neuro: Alert and oriented Psych: Normal affect Lab Recent Labs 12/19/17 0155 WBC 6.27 HB 8.8* HCT 27.5* PLT 290 NA 140 K 3.8 CHLOR 103 CO2 24 BUN 8 CREAT 0.62 GLUC 117* Imaging CXR 12/19- Lungs and pleura: ?Mixed changes with overall improvement of basilar opacities. ?These may represent atelectasis with possible superimposed edema and/or inflammation. ?Underlying small layering left pleural effusion is not excluded. CT A/P w/ con 12/18- OSH- Postop findings in L renal fossa with fluid and air. Drain is near but not within post-op fluid collection. No bowel obstruction. Current hospital medications: ondansetron 4 mg tab(s) (ZOFRAN) 4 mg ORAL q 6 H prochlorperazine 10 mg injection (COMPAZINE) 10 mg INTRAVENOUS q 8 H PRN traMADol 25 mg tab(s) (ULTRAM) 25 mg ORAL q 4 H PRN albuterol HFA 90 mcg/actuation 2 Puff (PROVENTIL HFA, VENTOLIN HFA) 2 Puff INHALATION q 4 H PRN docusate sodium 100 mg cap(s) (COLACE) 100 mg ORAL BID cyclobenzaprine 10 mg tab(s) (FLEXERIL) 10 mg ORAL TID PRN dextrose 40 % 15 g 15 g ORAL PRN glucagon 1 mg injection (GLUCAGEN) 1 mg INTRAMUSCULAR PRN dextrose 50% in water 25 mL syringe 12.5 g INTRAVENOUS PRN insulin glargine 10 Units pen (long acting) (LANTUS SOLOSTAR, BASAGLAR KWIKPEN) 10 Units SUBCUTANEOUS AT BEDTIME insulin lispro injection (rapid acting) (HumaLOG) SUBCUTANEOUS q 6 H NaCl 0.9% iv infusion 150 mL/hr INTRAVENOUS CONTINUOUS zolpidem 5 mg tab(s) (AMBIEN) 5 mg ORAL HS PRN aluminum-magnesium hydroxide-simethicone 200-200-20 mg/5 mL 30 mL (MAALOX,MYLANTA,MAG-AL PLUS) 30 mL ORAL q 6 H PRN phenol 1 [place] (CHLORASEPTIC) 1 [place] MUCOUS MEMBRANE (TOPICAL MOUTH AND THROAT) q 2 H PRN simethicone, chewable 80 mg tab(s) (MYLICON) 80 mg ORAL q 8 H PRN heparin 5,000 Units injection 5,000 Units SUBCUTANEOUS q 12 H mometasone 220 mcg (14 doses) 1 Puff inhaler (ASMANEX) 1 Puff INHALATION DAILY polyethylene glycol 3350 17 g packet (MIRALAX, GLYCOLAX) 17 g ORAL DAILY pantoprazole DR 40 mg tab(s) (PROTONIX) 40 mg ORAL DAILY (6 AM) Assessment AND Plan Ms. Hall is a 37 year old female with h/o morbid obesity and L renal mass s/p L open PNx 12/09 and d/c-ed 12/15 w/ n/v and epigastric pain for 2 days admitted for further assessment and management. Labs and CT at OSH w/p acute abnormalities. Suspect pain and nausea may be due to opiates and oxycodone intolerance, as well as GERD from obesity. Improving with addition of tramadol, flexeril and PPI ? #Neuro - Pain controlled with PO tramadol. Appreciate APMS seeing pt #CV/Resp - -HDS, Hgb 8.8 -Encourage IS #GI - - N/v- PO zofran, compazine, colace, miralax, PPi IVF -Diet: GI Soft/regular diet, as tolerated # - - Cr stable at 0.7, UOP: Continue to monitor - DAVID and murtaza out #Activity - OOB to chair and Ambulate with assistance #DVT prophylaxis - SCDs, Heparin SQ #ID/Antibiotics - None #Secondary Dx/Complications- Obesity- Continue to monitor #Discharge teaching - routine teaching #Disposition - D/c today d/w Dr. Brian Cedillo, MS4 Rob Maldonado M.D. Urology PGY-3 Pager: [phone] December 20, 2017 Overnight and on weekends please page [phone] Chief resident addendum Feels improved, nausea abatted, tolerating regular diet. Pain controlled with Ultram per APMS. H/H stable. SCr 0.66 BP 130/79 Pulse 87 Temp 36.9 ?C (98.4 ?F) (Oral) Resp 18 Ht 165.1 cm (5' 5) LMP 11/20/2017 SpO2 93% BMI 55.43 kg/m? Appears well. Anticipate ability to d/c today. Service resident to discuss staple and drain removal. Stefania Hayes MD 10:14 AM * Please page primary service resident listed above or [phone] first with questions. CBC Collected: 12/20/2017 Status: F Source: STEGER 5:32 AM [facility] REPOSITORY TYPE CODE TESTS RESULT OUT OF REFERENCE UNITS RANGE LAB WBC 3.70-11.00 k/uL WBC 5.76 LAB RBC 3.90-5.20 m/uL Low RBC 3.10 LAB HGB 11.5-15.5 g/dL Low Hemoglobin 8.4 LAB HCT 36.0-46.0 % Low Hematocrit 26.1 LAB MCV 80.0-100.0 fL MCV 84.2 LAB MCH 26.0-34.0 pG MCH 27.1 LAB MCHC 30.5-36.0 g/dL MCHC 32.2 LAB RDWCV 11.5-15.0 % RDW-CV 14.2 LAB PLTCT 150-400 k/uL Platelet Count 270 LAB MPV 9.0-12.7 fL MPV 9.5 LAB ABSNUC <0.01 k/uL Absolute nRBC <0.01 Performed By: #### CBC, BMP #### [facility] [address] [place], [place] [address] BASIC METABOLIC PANL Collected: 12/20/2017 Status: F Source: STEGER 5:32 AM [facility] REPOSITORY TYPE CODE TESTS RESULT OUT OF REFERENCE UNITS RANGE LAB GLU 74-99 mg/dL High Glucose 112 Result Comment: The [place] [employer] (ADA) provides guidance for cutoff values for fasting glucose and random glucose. The ADA defines fasting as no caloric intake for at least 8 hours. Fas ting plasma glucose results between 100 to 125 mg/dL indicate increased risk for diabetes (prediabetes). Fasting plasma glucose results greater than or equal to 126 mg/dL meet the criteria for diagnosis of diabetes. In the absence of unequivocal hyperglycemia, results should be confirmed by repeat testing. In a patient with classic symptoms of hyperglycemia or hyperglycemic crisis, random plasma glucose results greater than or equal to 200 mg/dL meet the criteria for diagnosis of diabetes. Reference: Standards of Medical Care in Diabetes 2016, [place] [employer]. Diabetes Care. 2016.39(Suppl 1). LAB BUN 7-21 mg/dL BUN 10 LAB CRET 0.58-0.96 mg/dL Creatinine 0.66 LAB NA 136-144 mmol/L Sodium 141 LAB K 3.7-5.1 mmol/L Potassium 3.7 LAB CL 97-105 mmol/L Chloride 104 LAB CO2 22-30 mmol/L CO2 24 LAB AGAP 9-18 mmol/L Anion Gap 13 LAB CA 8.5-10.2 mg/dL Calcium, Low Total 8.2 LAB GFRAA eGFR- Amer. >60 LAB GFRNAA . eGFR-All Other Races >60 Result Comment: eGFR (Estimated GFR) Units of measure: mL/min/1.73 meters squared eGFR is derived from the reexpressed MDRD Study equation using the following parameters: serum creatinine, age, gender and race. The creatinine assay has been calibrated to be traceable to IDMS. An eGFR <60 mL/min/1.73m2 for >3 months is consistent with chronic kidney disease. Refer to KDOQI guidelines for clinical interpretation. In patients with unstable renal function, e.g. those with acute kidney injury, the eGFR may not accurately reflect actual GFR. Performed By: #### CBC, BMP #### [email or web address] [address] [place], [place] [address] Observed: 12/19/2017 Status: F Source: STEGER URINE CULTURE 2:26 PM [facility] REPOSITORY Sp. Request/Comment: - Specimen received in preservative Culture Result - No growth (<1,000 CFU/ml) Performed By: #### URCUL #### [email or web address] [address], [place] [address] TROPONIN T Collected: 12/19/2017 Status: F Source: STEGER 2:25 PM [facility] REPOSITORY TYPE CODE TESTS RESULT OUT OF REFERENCE UNITS RANGE LAB TROPT 0.000-0.029 ng/mL Troponin T <0.010 Performed By: #### RAY #### [facility] [address] [place], [place] [address] PROGRESS Observed: 12/19/2017 Status: COMPLETED Source: STEGER 8:35 AM [facility] [place] REPOSITORY HNO ID: [id number] Author: Heather Torres Service: Urology Author Type: Physician Type: Progress Notes Filed: 12/19/2017 3:29 PM Note Text: UROLOGY RESIDENT PROGRESS NOTE Name: Tess Hall Bed: G090 005/G090-05 Date: December 19, 2017 Subjective - Reports emesis x2 last night but feels slightly improved. Pt reports that nausea occurs mostly after taking narcotics. -Pain: No longer w/ epigastric pain -N/V : yes, buit improving -Bowel function: Yes - VOiding w/o issue. Unable to find bladder w/ BS due to obesity Objective Vital Signs Patient Vitals for the past 8 hrs: BP Temp Temp src Pulse Resp SpO2 12/19/17 0740 136/76 36.6 ?C (97.9 ?F) Oral 96 19 97 % 12/19/17 0247 128/69 37 ?C (98.6 ?F) Oral 97 18 94 % Input and Output Intake/Output Summary (Last 24 hours) at 12/19/17 0835 Last data filed at 12/19/17 0607 Gross per 24 hour Intake 100 ml Output 50 ml Net 50 ml Physical Exam General: WDWN in NAD HEENT: Normocephalic, atraumatic, conjugate gaze CV: Reg rate, warm, well-perfused, Hemodynamically stable Resp: breathing comfortably on NC GI: Soft, nontender, nondistended. No rebound or guarding. Morbidly obese : voiding freely Wound: murtaza in place over L flank incision, mild erythema over incision but otherwise c/d/i w/o induration or drainage. DAVID in place ss Neuro: Alert and oriented Psych: Normal affect Lab Recent Labs 12/19/17 0155 WBC 6.27 HB 8.8* HCT 27.5* PLT 290 NA 140 K 3.8 CHLOR 103 CO2 24 BUN 8 CREAT 0.62 GLUC 117* Imaging CXR 12/19- By my readb/l pleural effusions, L>R. Low inspiratory effort CT A/P w/ con 12/18- OSH- Postop findings in L renal fossa with fluid and air. Drain is near but not within post-op fluid collection. No bowel obstruction. Current hospital medications: ondansetron (PF) 4 mg injection (ZOFRAN) 4 mg INTRAVENOUS q 6 H PRN albuterol HFA 90 mcg/actuation 2 Puff (PROVENTIL HFA, VENTOLIN HFA) 2 Puff INHALATION q 4 H PRN docusate sodium 100 mg cap(s) (COLACE) 100 mg ORAL BID cyclobenzaprine 10 mg tab(s) (FLEXERIL) 10 mg ORAL TID PRN dextrose 40 % 15 g 15 g ORAL PRN glucagon 1 mg injection (GLUCAGEN) 1 mg INTRAMUSCULAR PRN dextrose 50% in water 25 mL syringe 12.5 g INTRAVENOUS PRN insulin glargine 10 Units pen (long acting) (LANTUS SOLOSTAR, BASAGLAR KWIKPEN) 10 Units SUBCUTANEOUS AT BEDTIME insulin lispro injection (rapid acting) (HumaLOG) SUBCUTANEOUS q 6 H NaCl 0.9% iv infusion 150 mL/hr INTRAVENOUS CONTINUOUS zolpidem 5 mg tab(s) (AMBIEN) 5 mg ORAL HS PRN aluminum-magnesium hydroxide-simethicone 200-200-20 mg/5 mL 30 mL (MAALOX,MYLANTA,MAG-AL PLUS) 30 mL ORAL q 6 H PRN phenol 1 [place] (CHLORASEPTIC) 1 [place] MUCOUS MEMBRANE (TOPICAL MOUTH AND THROAT) q 2 H PRN simethicone, chewable 80 mg tab(s) (MYLICON) 80 mg ORAL q 8 H PRN heparin 5,000 Units injection 5,000 Units SUBCUTANEOUS q 12 H mometasone 220 mcg (14 doses) 1 Puff inhaler (ASMANEX) 1 Puff INHALATION DAILY oxyCODONE IR 5-10 mg tab(s) (ROXICODONE) 5-10 mg ORAL q 4 H PRN polyethylene glycol 3350 17 g packet (MIRALAX, GLYCOLAX) 17 g ORAL DAILY prochlorperazine 10 mg injection (COMPAZINE) 10 mg INTRAVENOUS q [address] 40 mg tab(s) (PROTONIX) 40 mg ORAL DAILY (6 AM) Assessment AND Plan Ms. Hall is a 37 year old female with h/o morbid obesity and L renal mass s/p L open PNx 12/09 and d/c-ed 12/15 w/ n/v and epigastric pain for 2 days admitted for further assessment and management. Labs and CT at OSH w/p acute abnormalities. ? Broad ddx for post-op nv including constipation, narcotic use, upper GI pathology (PUD, GERD, biliary colic) ? #Neuro - Discontinue narcotics. Will consider NSAIDs in AM if pain not appropriately controlled #CV/Resp - -HDS -Encourage IS #GI - - N/v- zofran, compazine, colace, miralax, PPi- will transition to PO meds IVF If still no improvement tomorrow, can consider GI consult -Diet: GI Soft/regular diet, as tolerated # - -UOP: Continue to monitor #Activity - OOB to chair and Ambulate with assistance #DVT prophylaxis - SCDs, Heparin SQ #ID/Antibiotics - None #Secondary Dx/Complications- Obesity- Continue to monitor #Discharge teaching - pending course #Disposition - pending course, possibly tomorrow if continues to improve To be d/w Dr. Torres Rob Maldonado M.D. Urology PGY-3 Pager: [phone] December 19, 2017 8:35 AM Overnight and on weekends please page [phone] Chief Resident Addendum Tess admitted yesterday overnight after several ED visits for epigastric and abdominal pain and nausea with bilious emesis. She states this pain began several days after discharge and has continued daily since then. She does temporally associate the administration of opioids with symptoms of nausea stating that the pain occurs 1-2 hours after receipt. Continues to pass flatus but poorly tolerating PO intake. Received IVF and antiemetics upon arrival. States she feels much improved this morning compared to yesterday. BP 136/76 Pulse 96 Temp 36.6 ?C (97.9 ?F) (Oral) Resp 19 LMP 11/20/2017 SpO2 97% H/H stable, SCr stable at 8.8/27.5 and 0.62 EKG NSR and upon resident review unchanged from prior. No chest pain. Single order of troponin + CKMB. C/w IVFs, hydration, encourage oral fluid intake, transition medications from IV to PO as able. Consider pain management consult. Suspect this is opioid intolerance but withdrawal is a consideration. Unable to administer tylenol due to an allergy and NSAIDs are undesirable given recent partial Nx. Preoperative UCx was positive for Ecoli and was treated prior to surgery. However will order confirmatory UCx. Plan as above. Stefania Hayes MD 10:26 AM Please page [phone] or service resident listed above for questions. above I rev'd Ct, has just normal postop changes, no hydro, no urine leak, no bleeding, kidney appears to be doing well Main issue has been pain controls and N/V Pt was off floor when I stopped by her room W 6.3, hg 8.8, SCr 0.62 so all labs stable Troponins negative, A/L fine at OSH Postop N/V, will manage conservatively, if persists consider GI evaluation Heather Torres MD XR CHEST 1V FRONTAL Observed: 12/19/2017 Status: F Source: [facility] 8:13 AM [facility] REPOSITORY * * *Final Report* * * DATE OF EXAM: Dec 19 2017 8:13AM [facility] [id number] - XR CHEST 1V FRONTAL PORT / PROCEDURE REASON: Post-operative / post-procedure assessment, symptomatic * * * * Physician Interpretation * * * * EXAMINATION: CHEST RADIOGRAPH (PORTABLE SINGLE VIEW AP) Exam Date/Time: 12/19/2017 8:13 AM Clinical History: Post-operative / post-procedure assessment, symptomatic, MQ: [id number] Comparison: 12/12/2017 RESULT: See impression. IMPRESSION: Lines, tubes, and devices: None. Lungs and pleura: Mixed changes with overall improvement of basilar opacities. These may represent atelectasis with possible superimposed edema and/or inflammation. Underlying small layering left pleural effusion is not excluded. Cardiomediastinal silhouette: Stable cardiomediastinal silhouette. Other: . 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 Transcribe Date/Time: Dec 19 2017 10:50A Dictated by : JEISON BARCENAS MD This examination was interpreted and the report reviewed and electronically signed by: JEISON BARCENAS MD on Dec 19 2017 10:50AM EST [id number] CBC Collected: 12/19/2017 Status: F Source: STEGER 1:55 [facility] REPOSITORY TYPE CODE TESTS RESULT OUT OF REFERENCE UNITS RANGE LAB WBC 3.70-11.00 k/uL WBC 6.27 LAB RBC 3.90-5.20 m/uL Low RBC 3.29 LAB HGB 11.5-15.5 g/dL Low Hemoglobin 8.8 LAB HCT 36.0-46.0 % Low Hematocrit 27.5 LAB MCV 80.0-100.0 fL MCV 83.6 LAB MCH 26.0-34.0 pG MCH 26.7 LAB MCHC 30.5-36.0 g/dL MCHC 32.0 LAB RDWCV 11.5-15.0 % RDW-CV 14.2 LAB PLTCT 150-400 k/uL Platelet Count 290 LAB MPV 9.0-12.7 fL MPV 9.4 LAB ABSNUC <0.01 k/uL Absolute nRBC <0.01 Performed By: #### CBC, PT, PTT, BMP #### [facility] [address] [place] [address] PROTIME Collected: 12/19/2017 Status: F Source: STEGER 1:55 AM [facility] REPOSITORY TYPE CODE TESTS RESULT OUT OF RANGE REFERENCE UNITS LAB PSEC 9.7-13.0 sec PT Sec 10.7 LAB INR 0.9-1.3 PT INR 1.0 Result Comment: Vitamin K Antagonist (VKA) Therapeutic Range: INR 2 to 3 (Target INR of 2.5) Note: For patients treated with VKA drugs, such as warfarin, the [place] [employer] 2012 Guideline recommends a therapeutic INR range of 2 to 3 (target INR of 2.5). This recommendation includes high-risk patients with antiphospholipid syndrome with previous arterial or venous thromboembolism, current-generation mechanical or bioprosthetic aortic heart valve replacement. Note: Patients with mechanical aortic valve replacement and additional risk factors for thromboembolic events (atrial fibrillation, previous thromboembolism, LV dysfunction, hypercoagulable conditions) or an older generation mechanical AVR (i.e., ball in-Cage) or any mechanical MVR should have a INR therapeutic range of 2.5 to 3.5 (target INR of 3). Louise GH, et al. Chest 2012, 141:7S-47S Alison RA, et al. [facility] 2017, 70: 252-289 Performed By: #### CBC, PT, PTT, BMP #### [email or web address] [address], [place] [address] APTT Collected: 12/19/2017 Status: F Source: STEGER 1:[address] [place] [address] REPOSITORY TYPE CODE TESTS RESULT OUT OF RANGE REFERENCE UNITS LAB APTT 23.0-32.4 sec APTT 25.4 Result Comment: Unfractionated Heparin Therapeutic Ranges: Standard Heparin Nomogram: 53 to 78 seconds (anti-Xa level of 0.3 to 0.7 U/ml) Low Dose/ACS Nomogram: 49 to 67 seconds (anti-Xa level of 0.2 to 0.5 U/ml) Stroke Treatment Nomogram: 49 to 67 seconds (anti-Xa level of 0.2 to 0.5 U/ml) Note: The APTT therapeutic range has been determined for the current lot of laboratory APTT reagent in use throughout the [facility]. Performed By: #### CBC, PT, PTT, BMP #### [email or web address] [address] [place], [place] [address] BASIC METABOLIC PANL Collected: 12/19/2017 Status: F Source: STEGER 1:[address] [place] [address] REPOSITORY TYPE CODE TESTS RESULT OUT OF REFERENCE UNITS RANGE LAB GLU 74-99 mg/dL High Glucose 117 Result Comment: The [place] [employer] (ADA) provides guidance for cutoff values for fasting glucose and random glucose. The ADA defines fasting as no caloric intake for at least 8 hours. Fas ting plasma glucose results between 100 to 125 mg/dL indicate increased risk for diabetes (prediabetes). Fasting plasma glucose results greater than or equal to 126 mg/dL meet the criteria for diagnosis of diabetes. In the absence of unequivocal hyperglycemia, results should be confirmed by repeat testing. In a patient with classic symptoms of hyperglycemia or hyperglycemic crisis, random plasma glucose results greater than or equal to 200 mg/dL meet the criteria for diagnosis of diabetes. Reference: Standards of Medical Care in Diabetes 2016, [place] [employer]. Diabetes Care. 2016.39(Suppl 1). LAB BUN 7-21 mg/dL BUN 8 LAB CRET 0.58-0.96 mg/dL Creatinine 0.62 LAB NA 136-144 mmol/L Sodium 140 LAB K 3.7-5.1 mmol/L Potassium 3.8 LAB CL 97-105 mmol/L Chloride 103 LAB CO2 22-30 mmol/L CO2 24 LAB AGAP 9-18 mmol/L Anion Gap 13 LAB CA 8.5-10.2 mg/dL Calcium, Low Total 8.3 LAB GFRAA eGFR- Amer. >60 LAB GFRNAA . eGFR-All Other Races >60 Result Comment: eGFR (Estimated GFR) Units of measure: mL/min/1.73 meters squared eGFR is derived from the reexpressed MDRD Study equation using the following parameters: serum creatinine, age, gender and race. The creatinine assay has been calibrated to be traceable to IDMS. An eGFR <60 mL/min/1.73m2 for >3 months is consistent with chronic kidney disease. Refer to KDOQI guidelines for clinical interpretation. In patients with unstable renal function, e.g. those with acute kidney injury, the eGFR may not accurately reflect actual GFR. Performed By: #### CBC, PT, PTT, BMP #### [email or web address] [address] [place] [address] TYPE AND SCREEN Collected: 12/19/2017 Status: F Source: STEGER 1:55 AM [facility] REPOSITORY TYPE CODE TESTS RESULT OUT OF REFERENCE UNITS RANGE LAB %ABR O ABO/RH(D) NEGATIVE LAB % Antibody NEG Screen Performed By: #### TSCR #### [email or web address] [address] [place] [id number] ECG COMPLETE W Observed: 12/18/2017 Status: F Source: STEGER INTERPRETATION 11:49 PM [facility] [place] REPOSITORY NAME : TESS HALL PID : [id number] : 1980 Gender : Female Race : ORD : [id number] Procedure Date : Dec 18 2017 23:49:10 Edit Date : Dec 23 2017 11:14:02 Diagnosis:NORMAL SINUS RHYTHM POOR R WAVE PROGRESSION BORDERLINE ECG Confirmed by BRIAN PADGETT, NHUNG ([id number]) on 12/23/2017 11:12:55 AM Ventricular Rate : 96 BPM Atrial Rate : 96 BPM P-R Interval : 140 ms QRS Duration : 82 ms Q-T Interval : 358 ms QTC Calculation(Bezet) : 452 ms P [place] : 33 degrees R [place] : 7 degrees T [place] : 15 degrees Test Reason : NAUSEA DEHYDRATION Location : 97 : G90 05 Overread By : NHUNG TORRES MD Edited By : NHUNG TORRES MD Referred By : , Acquired by : ROSENDOGERMAIN HISTORY PHYSICAL Observed: 12/18/2017 Status: COMPLETED Source: STEGER 9:21 PM [facility] [place] REPOSITORY HNO ID: [id number] Author: Rob (Res) Erica Service: Urology Author Type: Resident Type: HANDP Filed: 12/18/2017 10:21 PM Note Text: HANDP: UROLOGY SERVICE NAME: Tess Hall BED: G090 005/G090-05 SERVICE DATE: 12/18/2017 SERVICE TIME: 9:22 PM PRIMARY CARE PHYSICIAN: Bertha Lyle, MOLDED GOODS OPERATOR-C ASSESSMENT AND PLAN Ms. Hall is a 37 year old female with h/o morbid obesity and L renal mass s/p L open PNx 12/09 and d/c-ed 12/15 w/ n/v and epigastric pain for 2 days admitted for further assessment and management. Labs and CT at OSH w/p acute abnormalities. Broad ddx for post-op nv including constipation, narcotic use, upper GI pathology (PUD, GERD, biliary colic) #Neuro - Avoid narcotics, oxycodone ordered. Will consider NSAIDs in AM if pain not appropriately controlled #CV/Resp - -HDS -Encourage IS #GI - - N/v- zofran, compazine, colace, miralax, PPi IVF If still no improvement tomorrow, can consider GI consult -Diet: GI Soft/regular diet, as tolerated -Colace, Zofran # - -UOP: Continue to monitor, bladder scans #Activity - OOB to chair and Ambulate with assistance #DVT prophylaxis - SCDs, Heparin SQ #ID/Antibiotics - None #Secondary Dx/Complications- none #Discharge teaching - pending course #Disposition - pending course Plan discussed with chief res deputy commonwealth's attorney, Dr. Hayes To be d/w Dr. Torres in Rob Maldonado M.D. Urology PGY-3 Pager: [phone] December 18, 2017 9:22 PM Overnight and on weekends please page [phone] HISTORY OF PRESENT ILLNESS Ms. Hlal is a 37 year old female with PMHx morbid obesity, DM2, smoking, w/ L renal mass s/p open L PNx by Dr. Torres 12/09 who is admitted for post-op nausea. Briefly, the patient's post-op course complicated by desaturations and required home O2 on discharge. She was d/c-ed on 12/15. One day after d/c, pt developed nausea and bilious emesis (w/o blood), epigastric pain. Passing flatus but only 1 BM. Denies LUTS or hematuria. Denies f/c. Pt went to OSH ED. Labs obtained wnl. CT A/P obtained noted post-op changes only. At bedside, pt in mild distress holding upper abd and c/o nausea. PAST MEDICAL HISTORY: PAST MEDICAL HISTORY Diagnosis Date - Depression - DM2 (diabetes mellitus, type 2) (HCC) - HLD (hyperlipidemia) - Hx of acute pyelonephritis - Morbid obesity (HCC) - Reactive airway disease - Renal mass - Smoker PAST SURGICAL HISTORY: PAST SURGICAL HISTORY Procedure Laterality Date - SECTION HX 2006 - TUBAL LIGATION HX 2006 FAMILY HISTORY: FAMILY HISTORY Problem Relation Age of Onset - Blindness Maternal Grandmother SOCIAL HISTORY: Social History Substance Use Topics - Smoking status: Current Every Day Smoker Packs/day: 1.00 Types: Cigarettes - Smokeless tobacco: Never Used - Alcohol use No MEDICATIONS: Prior to Admission Medications: Prescriptions Prior to Admission: OXYGEN, HOME THERAPY, 2 L/min by Nasal Cannula route as directed. 2LPN via Nasal Cannula with exertion and during sleep with oxygen concentrator with back up oxygen tank and conserving device for ambulation. Disp: 1 Units Rfl: 0 blood sugar diagnostic (FREESTYLE LITE STRIPS) test strip Use as instructed Disp: 100 Strip Rfl: 5 lancets (FREESTYLE LANCETS) 28 gauge misc 1 Stick three times daily. Disp: 100 Each Rfl: 5 glipiZIDE (GLUCOTROL) 10 mg tablet Take 1 in am before breakfast and 1 before evening meal. Disp: Rfl: insulin glargine (BASAGLAR KWIKPEN U-100 INSULIN) 100 unit/mL (3 mL) inpn Inject 20 Units subcutaneously daily at bedtime. Disp: Rfl: docusate sodium (COLACE) 100 mg capsule Take 1 capsule by mouth twice daily. Disp: 40 capsule Rfl: 0 exenatide microspheres (BYDUREON SUBCUTANEOUS) Inject subcutaneously once each week. Disp: Rfl: 11/27/2017 ibuprofen (MOTRIN ORAL) Take 1 tablet by mouth as needed. 800 mg Disp: Rfl: 12/01/2017 cyclobenzaprine (FLEXERIL) 10 mg tablet Take 1 tablet by mouth three times daily as needed for Muscle Spasm. Disp: Rfl: none recent fluticasone (FLOVENT HFA) 110 mcg/actuation inhaler Inhale 1 Puff as instructed twice daily. Rinse your mouth after each use. Disp: 1 Inhaler Rfl: 0 12/08/2017 at Unknown time blood sugar diagnostic (FREESTYLE LITE STRIPS) test strip Test blood sugar(s)3daily. Dx: diabetes type 2 uncontrolled.. Insulin: No, titrating medication Disp: 100 Strip Rfl: 3 Taking Lancets lancets Use as instructed up to 4 times daily Disp: 120 Each Rfl: 11 Taking metFORMIN (GLUCOPHAGE) 1,000 mg tablet Take 1 tablet by mouth twice daily with meals. Disp: 60 tablet Rfl: 3 12/08/2017 at Unknown time Blood-Glucose Meter (FREESTYLE LITE METER) monitoring kit As directed Disp: 1 Each Rfl: 0 Taking albuterol HFA (PROVENTIL HFA, VENTOLIN HFA) 90 mcg/actuation inhaler Inhale 2 Puffs as instructed. Disp: Rfl: 12/08/2017 at 2300 Current hospital medications: ondansetron (PF) 4 mg injection (ZOFRAN) 4 mg INTRAVENOUS q 6 H PRN albuterol HFA 90 mcg/actuation 2 Puff (PROVENTIL HFA, VENTOLIN HFA) 2 Puff INHALATION q 4 H PRN docusate sodium 100 mg cap(s) (COLACE) 100 mg ORAL BID cyclobenzaprine 10 mg tab(s) (FLEXERIL) 10 mg ORAL TID PRN dextrose 40 % 15 g 15 g ORAL PRN glucagon 1 mg injection (GLUCAGEN) 1 mg INTRAMUSCULAR PRN dextrose 50% in water 25 mL syringe 12.5 g INTRAVENOUS PRN insulin glargine 10 Units pen (long acting) (LANTUS SOLOSTAR, BASAGLAR KWIKPEN) 10 Units SUBCUTANEOUS AT BEDTIME insulin lispro injection (rapid acting) (HumaLOG) SUBCUTANEOUS q 6 H NaCl 0.9% iv infusion 150 mL/hr INTRAVENOUS CONTINUOUS zolpidem 5 mg tab(s) (AMBIEN) 5 mg ORAL HS PRN aluminum-magnesium hydroxide-simethicone 200-200-20 mg/5 mL 30 mL (MAALOX,MYLANTA,MAG-AL PLUS) 30 mL ORAL q 6 H PRN phenol 1 [place] (CHLORASEPTIC) 1 [place] MUCOUS MEMBRANE (TOPICAL MOUTH AND THROAT) q 2 H PRN simethicone, chewable 80 mg tab(s) (MYLICON) 80 mg ORAL q 8 H PRN heparin 5,000 Units injection 5,000 Units SUBCUTANEOUS q 12 H mometasone 220 mcg (14 doses) 1 Puff inhaler (ASMANEX) 1 Puff INHALATION DAILY oxyCODONE IR 5-10 mg tab(s) (ROXICODONE) 5-10 mg ORAL q 4 H PRN CURRENT ALLERGIES: Allergies As of Date: 12/18/2017 Allergen Noted Reaction CLINDAMYCIN 08/17/2017 Hives and Itching TYLENOL [ACETAMINOPHEN] 08/17/2017 Hives and GI Upset Fully Assessed 12/18/2017 COMPLETE REVIEW OF SYSTEMS: REVIEW OF SYSTEMS PAIN ASSESSMENT: No chronic pain, + acute pain GENERAL: Negative for weight loss or fevers HEENT: Negative for changes in hearing or vision NECK: Negative for neck pain or swelling RESPIRATORY: mild cough, Negative for wheezing, or shortness of breath CARDIOVASCULAR: Negative for chest pain GI: +nausea, vomiting : See HPI MUSCULOSKELETAL: Negative for joint pain or swelling SKIN: Negative for lesions or rashes HEMATOLOGY: Negative for bleeding or clotting problems NEURO: Negative for strokes or seizures OBJECTIVE PHYSICAL EXAM: Patient Vitals for the past 3 hrs: BP Temp Temp src Pulse Resp SpO2 12/18/17 2109 129/81 37.1 ?C (98.8 ?F) Oral 74 17 96 % 12/18/17 2019 (!) 137/46 36.6 ?C (97.9 ?F) Oral (!) 30 17 93 % There is no height or weight on file to calculate BMI. General: in mild Distress HEENT: Normocephalic, atraumatic CV:: warm, well-perfused, normal heart sounds Resp: breathing comfortably on RA, CTAB GI: Soft, mild tenderness in epigastrium, nondistended. No rebound or guarding. incision: murtaza in place over L flank incision, mild erythema over incision but otherwise c/d/i w/o induration or drainage. DAVID in place ss Neuro: Alert and oriented Psych: Normal affect DATA: Labs OSH LABS WBC 6.5 Hgb [address] A/P w/ con 12/18- OSH- Postop findings in L renal fossa with fluid and air. Drain is near but not within post-op fluid collection. No bowel obstruction. NURSING PROG Observed: 12/18/2017 Status: COMPLETED Source: STEGER 7:32 PM [facility] [place] REPOSITORY HNO ID: [id number] Author: Miki (Rn) Girma RN Service: Nursing Author Type: Registered Nurse Type: Nursing Progress Note Filed: 12/18/2017 7:32 PM Note Text: Nursing Progress Note Patient Name: Tess Hall Patient Location: [place] [address] [address] Transfer Note: Patient transferred into room/unit g90-05 in stable condition. Actions taken: No futher actions taken at this time. Will continue to monitor and check with patient. Patient belongings with patient This note was completed by: Miki Rayo RN ED PATIENT SUMMARY Observed: 12/18/2017 Status: F Source: [facility] 6:01 PM [facility] REPOSITORY [place] [id number] Patient Discharge Instructions Person Information Name: TESS HALL Age: 37 Years [facility]: [id number] Arrival Date: 12/18/2017 12:38 PM Discharge Diagnosis: 1:Nausea and vomiting; 2:Abdominal pain; 3:Hx of partial nephrectomy Primary Care Physician: AYANA CAREY Provider Information Primary Provider: Chidi Arenas M.D. Advanced Crank Hand:None The exam and treatment you received in the Emergency Department were for an urgent problem and are not intended as complete care. It is important that you follow up with a doctor, nurse practitioner, or physician?s assistant softball coach for ongoing care. If your symptoms become worse or you do not improve as expected and you are unable to reach your usual health care provider, you should return to the Emergency Department. We are available 24 hours a day. TESS HALL has been given the following list of patient education materials, prescriptions and follow-up instructions: Follow-up Instructions: In the event that this physician does not participate in your insurance network, please consult with your insurance company to find a nearby participating provider. Patient Education Materials: A MESSAGE TO ALL PATIENTS REGARDING OPIOIDS PRESCRIPTION OPIOIDS: WHAT YOU NEED TO KNOW Prescription opioids can be used to help relieve [id number]-dmalun pain and are often prescribed following a surgery or injury, or for certain health conditions. These medications can be an important p art of the treatment but also come with serious risks. It is important to work with your healthcare provider to make sure you are getting the safest, most effective care. WHAT ARE THE RISKS AND SIDE EFFECTS OF OPIOID USE? Prescription opioids carry serious risks of addiction and overdose, especially with prolonged use. An opioid overdose, often marked by slowed breathing, can cause sudden . The use of prescription o pioids can have a number of side effects as well, even when taken as directed: ? Tolerance?meaning you might need to take more of the medication for the same pain relief ? Physical dependence?meaning you have symptoms of withdrawal when a medication is stopped ? Increased sensitivity to pain ? Constipation ? Nausea, vomiting, and dry mouth ? Sleepiness and dizziness ? Confusion ? Depression ? Low levels of testosterone that can result in lower sex drive, energy, and strength ? Itching and sweating RISKS ARE GREATER WITH: ? History of drug misuse, substance use disorder, or overdose ? Mental health conditions (such as depression or anxiety) ? Sleep apnea ? Older age (65 years and older) ? Avoid alcohol while taking prescription opioids. Also, unless specifically advised by your health care provider, medications to avoid include: ? Benzodiazepines (such as Xanax or Valium) ? Muscle relaxants (such as Soma or Flexeril) ? Hypnotics (such as Ambien or Lunesta) ? Other prescription opioids KNOW YOUR OPTIONS Talk to your health care provider about ways to manage your pain that don?t involve prescription opioids. Some of these options may actually work better and have fewer risks and side effects. Options may include: ? Pain relievers such as acetaminophen, ibuprofen, and naproxen ? Some medication that are also used for depression or seizures ? Physical therapy and exercise ? Cognitive behavioral therapy, a psychological, goal- directed approach, in which patients learn how to modify physical, behavioral, and emotional triggers of pain and stress. IF YOU ARE PRESCRIBED OPIOIDS FOR PAIN: ? Never take opioids in greater amounts or more often than prescribed. ? Follow up with your primary health care provider. o Work together to create a plan on how to manage your pain. o Talk about ways to help manage your pain that don?t involve prescription opioids. o Talk about any and all concerns and side effects. ? Help prevent misuse and abuse o Never sell or share prescription opioids. o Never use another person?s prescription opioids. ? Store prescription opioids in a secure place and out of reach of others (this may include visitors, children, friends, and family). ? Safely dispose of unused prescription opioids: Find your community drug take-back program or your pharmacy mail-back program, or flush them down the toilet, following guidance from the Food and Drug Administration (www.fda.gov/Drugs/ResourcesForYou). ? Visit www.cdc.gov/drugoverdose to learn about the risks of opioids abuse and overdose. ? If you believe you may be struggling with addiction, tell your health career technical counselor and ask for guidance or call [facility] National Helpline at 8-084-964-FKWR. v Source: US Department of Health and Human Services/Center for Disease Control & Prevention [facility] Medications Given: Medication Dose Route Sodium Chloride 0.9% intravenous solution 1000.00 mL Initial Volume 125.00 mL/hr IV Left Antecubital [place] famotidine 20.00 mg IV Push Left Antecubital [place] ondansetron 4.00 mg IV Push Left Antecubital Kiran morphine 4.00 mg IV Push Left Antecubital Kiran promethazine 12.50 mg IV Push Left Antecubital [place] Medication Information: Medications to Continue with No Changes Other Medications famotidine (famotidine 10 mg oral tablet) 1 Tabs By Mouth 2 times a day for 14 Days. Refills: 0. ondansetron (Zofran 4 mg Tab) 1 Tabs By Mouth every 6 hours as needed Nausea for 7 Days. Refills: 0. Comment: Pharmacy Information: Thank you for choosing [facility] Patient Education Materials: RAFAEL Siegel BRIANNA J , have received the following patient education materials/instructions and have verbalized understanding: Patient Education Materials: Follow-up Instructions: Prescriptions: Patient Signature Date Clinician/Nurse Signature Date 12/18/17 18:01:39 ED CLINICAL SUMMARY Observed: 12/18/2017 Status: F Source: [facility] 6:01 PM [facility] REPOSITORY [address] [address] ED Clinical Summary Person Information Name: TESS HALL [place] Age: 37 Years : 1980 12:00 AM Sex: Female Language: Maltese PCP: AYANA CAREY Marital Status: Visit Id: Visit Reason: Abdominal pain; Vomiting; SEEN YESTERDAY DOCTOR SENT BACK Speciality: Acuity: 3 Enc Type: Emergency Med Service: Emergency Arrival: 12/18/2017 12:38 PM Discharge: 12/18/2017 6:01 PM LOS: 000 05:23 Checkin: 12/18/2017 12:38 PM Checkout: 12/18/2017 6:01 PM Dispo Type: Undefined HC Fac EVENTS: Event Name Event Status Request Date/Time Start Date/Time Complete Date/Time Arrive Complete 12/18/2017 12:38 PM 12/18/2017 12:38 PM 12/18/2017 12:38 PM Document Home Meds Request 12/18/2017 12:38 PM Triage Complete 12/18/2017 12:38 PM 12/18/2017 12:47 PM 12/18/2017 12:[address] Exam Complete 12/18/2017 12:41 PM 12/18/2017 12:41 PM 12/18/2017 12:41 PM Registration Complete 12/18/2017 12:41 PM 12/18/2017 12:50 PM 12/18/2017 12:52 PM Bed Assign Complete 12/18/2017 12:50 PM 12/18/2017 12:50 PM 12/18/2017 12:50 PM RN Exam Complete 12/18/2017 12:50 PM 12/18/2017 1:42 PM 12/18/2017 1:42 PM Reg Complete Request 12/18/2017 12:52 PM Reg Bed Request Complete 12/18/2017 12:52 PM 12/18/2017 12:52 PM 12/18/2017 12:[address] Exam Complete 12/18/2017 12:52 PM 12/18/2017 12:52 PM 12/18/2017 12:52 PM Registration Request 12/18/2017 12:52 PM Meds Admin Request 12/18/2017 1:00 PM Pending Labs Complete 12/18/2017 1:00 PM 12/18/2017 1:43 PM Lab Complete 12/18/2017 1:00 PM 12/18/2017 1:43 PM Meds Admin Complete 12/18/2017 1:13 PM 12/18/2017 1:23 PM Pending Labs Complete 12/18/2017 1:29 PM 12/18/2017 1:29 PM 12/18/2017 1:43 PM Lab Complete 12/18/2017 1:29 PM 12/18/2017 1:29 PM 12/18/2017 1:43 PM Pending Labs Complete 12/18/2017 1:40 PM 12/18/2017 1:40 PM 12/18/2017 1:40 PM Lab Complete 12/18/2017 1:40 PM 12/18/2017 1:40 PM 12/18/2017 1:[address] Complete 12/18/2017 2:16 PM 12/18/2017 2:35 PM 12/18/2017 2:58 PM Pending Labs Request 12/18/2017 3:33 PM Lab Request 12/18/2017 3:33 PM Urine Collect Request 12/18/2017 3:33 PM Meds Admin Complete 12/18/2017 3:35 PM 12/18/2017 3:49 PM Pending Labs Complete 12/18/2017 3:45 PM 12/18/2017 3:45 PM 12/18/2017 3:45 PM Discharge Complete 12/18/2017 6:01 PM 12/18/2017 6:01 PM 12/18/2017 6:01 PM Transfer Complete 12/18/2017 6:01 PM 12/18/2017 6:01 PM 12/18/2017 6:01 PM ADDRESS: [address] [place] [phone] PHYS DOC NOTES: MEDICAL INFORMATION: Prescriptions Given: PATIENT EDUCATION INFORMATION: Instructions: Follow up: DIAGNOSIS: 1:Nausea and vomiting; 2:Abdominal pain; 3:Hx of partial nephrectomy ED NOTE-PHYSICIAN Observed: 12/18/2017 Status: F Source: [facility] 5:57 PM [facility] REPOSITORY Basic Information Time Seen: BALTA PEARCE DO 12/18/2017 12:41 Chief Complaint Pt to ED c/o left sided abdominal pain w/ persistent vomiting with no relief after being seen yesterday and prescribed Zofran. Pt was sent by PCP and told she was to be admitted for possible bowel obstruction. History of Present Illness 37 year old female presents with nausea and vomiting. Accompanied by significant other. Was seen here in ER yesterday for the same. 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 Nausea was controlled yesterday with several doses of zofran and phenergan. Was dischar ged with zofran, and states was feeling better last night, but awoke in the morning with nausea and was unable to control this with zofran at home. Not able to take pain medications orally without emesi s, and therefore pain is uncontrolled at home as well. Home pain medication is oxycodone Q8H. Patient called surgeon's office today and spoke with surgeon deputy commonwealth's attorney, who recommended she return to the ER for further evaluation. Review of Systems General: Denies fever, chills Head: denies headache EENT: denies diplopia, blurry vision, tinnitus, ear pain, nasal congestion, rhinorrhea, dysphagia, sore throat CV: denies chest pain, palpitations, tachycardia, sensation of arrhythmia Resp: denies cough, SOB, dyspnea UG: + decreased urinary frequency, denies dysuria, hematuria Neuro: denies changes in consciousness, syncope, weakness, numbness, tingling Musc: denies muscle cramps, joint pain Derm: denies skin changes, rashes, lesions Psych: denies anxiety, depression, suicidal ideation, homicidal ideation Physical Exam Vitals & Measurements T: 36.5 ?C (Oral) HR: 94(Peripheral) RR: 18 BP: 169/89 SpO2: 99% WT: 147 kg General: awake, alert, frequent crying spells but no acute distress Head: atraumatic, normocephalic EENT: EOMI, PERRL, oral mucosa moist, pharynx nonerythematous and without exudate Neck: full ROM, no lymphadenopathy CV: regular rate and rhythm, normal S1 and S2, no murmurs/gallops/rubs Resp: in no respiratory distress, clear to auscultation bilaterally, no wheezes or rhonchi Abdomen: Surgical site with murtaza L lateral abdomen- site appears clean and dry with no surrounding erythema. DAVID drain in place with minimal serosanginous output, similar to exam yesterday. BS hy poactive. Abdomen is otherwise soft, nondistended. Diffuse mild tenderness to palpation. Extremities: nonpitting edema of lower extremities bilat, not associated with erythema. Posterior tibial pulses +2/4 bilat. no cyanosis, clubbing. Derm: no rashes or lesions Neuro: CN II-XII intact, strength +5/5 in all 4 extremities, sensation to gross touch symmetric Psych: though coherent, speech well articulated, pleasant and cooperative Images CT abdomen/pelvis Procedure N/A Medical Decision Making 37 year old female status-post partial L nephrectomy with persistent nausea/vomiting and uncontrolled abdominal pain. On first presentation to the ER yesterday was able to tolerate fluids and cracke rs after two rounds of zofran and phenergan, and was discharged home with zofran at that time. Despite this, continues to have multiple episodes of emesis at home and again is unable to tolerate either solids or liquids. Pain is uncontrolled secondary to inability to keep foods or medications down. Abdominal exam today is unchanged from yesterday, remains soft with clean and dry surgical site. DAVID drain still with minimal serosanguineous output. Pain is controlled with 4 mg of morphine while i n the ER. Nausea is improved but not controlled with zofran and phenergan. CT abdomen/pelvis demonstrated post-surgical changes with surgical drain near but not within the postoperative fluid collection and no evidence of bowel obstruction. Case was discussed with surgeon at [facility], Dr Torres, who agrees to transfer the patient back to their care at [facility]. Assessment/Plan 1. Nausea and vomiting 2. Abdominal pain 3. Hx of partial nephrectomy Orders: Sodium Chloride 0.9% intravenous solution 1,000 mL, 1,000 mL, IV, 125 mL/hr, STAT, Start date 12/18/17 13:00:00 EDT, 8 hour(s), Total volume (mL): 1,000 Automated Diff Basic Metabolic Panel CBC w/ Auto Diff CT Abdomen/Pelvis w/ Contrast eGFR Lipase Level NPO Diet UA With Cult Reflex Medications Administered Given Sodium Chloride 0.9% IV Anais 1000 mL 1,000 mL, 1000 mL, IV famotidine 10 mg/mL IV Anais, 20 mg, IV Push morphine 2 mg/mL Inj, 4 mg, IV Push Phenergan 25 mg/mL Injection, 12.5 mg, IV Push Zofran 4 mg/2 mL Injection, 4 mg, IV Push Disposition Plan Patient Discharge Condition stable Discharge Disposition transfer- [facility] Discharge Prescription List Prescriptions No active prescription medications Follow-up No qualifying data available Attestation I, Dr. Arenas, had a [id number] interaction with the patient. I personally performed the physical exam and Medical Decision Making. I have verified the documentation by the Resident as accurately r epresenting the information obtained. Problem List/Past Medical History Ongoing Smoker Historical Cancer Medications Inpatient Sodium Chloride 0.9% IV Anais 1000 mL 1,000 mL, 1000 mL, IV Home famotidine 10 mg oral tablet, 10 mg= 1 tab(s), Oral, BID Zofran 4 mg Tab, 4 mg= 1 tab(s), Oral, q6hr, PRN Allergies No Known Allergies Social History Alcohol Substance Abuse Tobacco Smoker, current status unknown Tobacco Use:., 12/18/2017 Cigarettes, 12/17/2017 Lab Results WBC: 6.5 E9/L (12/18/17 13:28:00 EDT) RBC: 3.7 E12/L Low (12/18/17 13:28:00 EDT) Hgb: 10.2 gm/dL Low (12/18/17 13:28:00 EDT) Hct: 30.5 % Low (12/18/17 13:28:00 EDT) MCV: 82.5 fL (12/18/17 13:28:00 EDT) MCH: 27.5 pg (12/18/17 13:28:00 EDT) MCHC: 33.3 gm/dL (12/18/17 13:28:00 EDT) RDW: 15.3 % High (12/18/17 13:28:00 EDT) Platelet: 324 E9/L (12/18/17 13:28:00 EDT) MPV: 7.1 fL (12/18/17 13:28:00 EDT) Neutro Auto: 75.6 % High (12/18/17 13:28:00 EDT) Lymph Auto: 12.9 % Low (12/18/17 13:28:00 EDT) Martin Auto: 6.8 % (12/18/17 13:28:00 EDT) Eos Auto: 4.2 % (12/18/17 13:28:00 EDT) Basophil Auto: 0.5 % (12/18/17 13:28:00 EDT) Neutro Absolute: 4.9 E9/L (12/18/17 13:28:00 EDT) Lymph Absolute: 0.8 E9/L Low (12/18/17 13:28:00 EDT) Martin Absolute: 0.4 E9/L (12/18/17 13:28:00 EDT) Eos Absolute: 0.3 E9/L (12/18/17 13:28:00 EDT) Basophil Absolute: 0 E9/L (12/18/17 13:28:00 EDT) Glucose Lvl: 110 mg/dL (12/18/17 13:28:00 EDT) BUN: 8 mg/dL (12/18/17 13:28:00 EDT) Creatinine: 0.5 mg/dL (12/18/17 13:28:00 EDT) eGFR: >60 (12/18/17 13:28:00 EDT) eGFR AA: >60 (12/18/17 13:28:00 EDT) BUN/Creat Ratio: 16 (12/18/17 13:28:00 EDT) Sodium Lvl: 136 mmol/L (12/18/17 13:28:00 EDT) Potassium Lvl: 3.5 mmol/L (12/18/17 13:28:00 EDT) Chloride: 102 mmol/L (12/18/17 13:28:00 EDT) CO2: 28 mmol/L (12/18/17 13:28:00 EDT) AGAP: 10 mEq/L (12/18/17 13:28:00 EDT) Calcium Lvl: 8.4 mg/dL Low (12/18/17 13:28:00 EDT) Lipase Lvl: 12 unit/L Low (12/18/17 13:28:00 EDT) Glucose Cap: 107 mg/dL High (12/18/17 15:43:00 EDT) POC Device SN: [id number] (12/18/17 15:43:00 EDT) POC Username: CANDIDA MIRANDA (12/18/17 15:43:00 EDT) Diagnostic Results CT Abdomen/Pelvis w/ Contrast 12/18/17 14:58:45 GFR (mL/min/1/73m2) >60 Contrast: Isovue 300 Contrast amount in ml?s: 100 Rectal Contrast Given? No Signed By: Stevan Weathers MD 12/18/17 15:21:04 IMPRESSION: POSTOPERATIVE FINDINGS IN THE LEFT RENAL FOSSA, INCLUDING FLUID AND AIR AT THE OPERATIVE SITE. THERE IS POSTOPERATIVE DEFORMITY OF THE LEFT KIDNEY, FOLLOWING PARTIAL RESECTION. THERE ARE REGIONS OF ABNORMAL DIMINISHED ENHANCEMENT IN THE RENAL REMNANT, IMPLYING INTERRUPTION OF VASCULAR SUPPLY. THE SURGICAL DRAIN IS NEAR BUT NOT WITHIN THE POSTOPERATIVE FLUID COLLECTION. THERE IS NO BOWEL OBSTRUCTION. CLINICAL HISTORY: Recent kidney surgery. Nausea. Vomiting. Left-sided pain. COMPARISON: NONE. FINDINGS: Spiral axial images of the abdomen pelvis were obtained following intravenous administration of 100 mL Isovue 300. Multiplanar two-dimensional reformatting was performed. Delayed imaging was performed. There is postsurgical deformity of the left kidney and within the left renal fossa. There are surgical murtaza in the left renal hilum. There is a drain at the level of the lower pole of the left kidney. There is an intermediate volume of fluid and air adjacent to the deformed left kidney. There has been partial resection of the medial, dorsal aspect of the left kidney. There regions of diminished enhancement of the renal remnant, indicating reduced blood flow that is probably postoperative in nature. The fluid at the operative site is low density and could be urine extravasated earlier. There is no extravasation of contrast opacified urine at this time, best appreciated on delayed images. There is no evidence of delayed contrast excretion by the deformed left kidney. All of the excreted contrast material of the left kidney is contained within in its deformed but nondilated collecting system. The collecting system of the right kidney is normal. There is no free peritoneal fluid or air within the peritoneal cavity. There is no sign of bowel obstruction. There is a small amount of intra-abdominal fat herniating through a surgical defect in the left flank. The nearby descending colon is unaffected. The nearby spleen is unremarkable. The nearby tail of the pancreas is immediately adjacent to the anterior aspect of the operative site. The pancreas appears to be unaffected. The liver is unremarkable. Bile ducts are not dilated. The gallbladder is moderately dilated. The gallbladder contains debris, suggesting cholelithiasis. The stomach small bowel and colon are unremarkable. The urinary bladder is unremarkable. There is a trace of fluid in the pelvis. Both ovaries contain cysts. There is bilateral pleural effusion and pulmonary atelectasis, left greater than right. There is no pneumothorax. There is no pericardial effusion. Incidentally noted is degenerative disease in the spine. All CT scans at this facility use dose modulation, iterative reconstruction, and/or weight based dosing when appropriate to reduce radiation dose to as low as reasonably achievable. Signed By: Stevan Weathers MD Result Comment: Electronically Signed By: Deepa Hoover, Chidi Ward\.br\Date and Time Signed: 12/18/17 18:25 EDT CODING SUMMARY. Observed: 12/18/2017 Status: F Source: [facility] 4:[facility] CODING DATE: 12/18/2017 FINAL [facility] STATUS: Home (Routine DC) PAYOR: Medicaid EAPG DESCRIPTION 0408 LEVEL I HEMATOLOGY TESTS 0496 MINOR PHARMACOTHERAPY 0495 MINOR CHEMOTHERAPY DRUGS 0400 LEVEL I CHEMISTRY TESTS 0403 ORGAN OR DISEASE ORIENTED PANELS ADMIT DX: REASON FOR VISIT DX: R11.2 Nausea with vomiting, unspecified FINAL DX: PRINCIPAL: R11.2 Nausea with vomiting, unspecified SECONDARY: Z85.528 Personal history of other malignant neoplasm of kidney Z90.5 Acquired absence of kidney PYMT PROC EAPG STAT DESCRIPTION DOCTOR NAME DATE NOTE: The code number assigned matches the documented diagnosis and / or procedure in the patient's chart. However, the narrative phrase printed from the coding software may appear abbreviated, or result in slightly different terminology. Coded By: Alecia Thorne Date Saved: 12/18/2017 04:55 pm PROGRESS NOTE-NURSE Observed: 12/18/2017 Status: F Source: [facility] 4:02 PM [facility] Resident doctor Erika at bedside informing patient of contact with [facility] surgeon to discuss ongoing care and further plans for maintaining N&V CBC W/ AUTO DIFF Collected: 12/18/2017 Status: F Source: [facility] 1:28 PM [facility] RE[facility]IT[facility] TYPE CODE TESTS RESULT OUT OF REFERENCE UNITS RANGE LAB 35328-2(LO 4.0-11.0 E9/L INC) LEUKOCYTES Normal 6.5 LAB 789-8(LOIN 4.3-5.9 E12/L C) Low ERYTHROCYTES:NCNC: 3.7 PT:BLD:QN:AUTOMATE D COUNT LAB 718-7(LOIN 12.0-16.0 gm/dL C) Low HEMOGLOBIN:MCNC:PT 10.2 :BLD:QN: LAB 4544-3(HECTOR 34.0-46.0 % NC) Low HEMATOCRIT:VFR:PT: 30.5 BLD:QN:AUTOMATED COUNT LAB 788-0(LOIN 10.9-14.2 % C) ERYTHROCYTE High DISTRIBUTION 15.3 WIDTH:RATIO:PT:RBC :QN:AUTOMATED COUNT LAB 785-6(LOIN 27.0-34.0 pg C) ERYTHROCYTE Normal MEAN CORPUSCULAR 27.5 HEMOGLOBIN:ENTMASS :PT:RBC:QN:AUTOMAT ED COUNT LAB 786-4(LOIN 31.4-39.3 gm/dL C) ERYTHROCYTE Normal MEAN CORPUSCULAR 33.3 HEMOGLOBIN CONCENTRATION:MCNC :PT:RBC:QN:AUTOMAT ED COUNT LAB 787-2(LOIN 80.0-100.0 fL C) ERYTHROCYTE Normal MEAN CORPUSCULAR 82.5 VOLUME:ENTVOL:PT:R BC:QN:AUTOMATED COUNT LAB 15155-5(LO 6.4-10.8 fL INC) PLATELET MEAN Normal VOLUME:ENTVOL:PT:B 7.1 LD:QN:AUTOMATED COUNT LAB 777-3(LOIN 150.0-500.0 E9/L C) Normal PLATELETS:NCNC:PT: 324.0 BLD:QN:AUTOMATED COUNT Performed By: #### [id number], [id number], [id number] #### [facility] [address] [place] [address] AUTO DIFF Collected: 12/18/2017 Status: F Source: [facility] 1:28 PM [facility] REPOSITORY Order Comment: Order Added by Discern Expert. TYPE CODE TESTS RESULT OUT OF RANGE REFERENCE UNITS LAB 751-8(LOINC 36.0-75.0 % ) High 75.6 NEUTROPHILS: NCNC:PT:BLD: QN:AUTOMATED COUNT LAB 731-0(LOINC 14.0-50.0 % ) Low 12.9 LYMPHOCYTES: NCNC:PT:BLD: QN:AUTOMATED COUNT LAB 742-7(LOINC 4.0-14.0 % ) Normal 6.8 MONOCYTES:NC NC:PT:BLD:QN :AUTOMATED COUNT LAB 711-2(LOINC 0.0-8.0 % ) Normal 4.2 EOSINOPHILS: NCNC:PT:BLD: QN:AUTOMATED COUNT LAB 704-7(LOINC 0.0-2.0 % ) Normal 0.5 BASOPHILS:NC NC:PT:BLD:QN :AUTOMATED COUNT LAB 14978-3(HECTOR 2.0-7.5 E9/L NC) Normal 4.9 NEUTROPHILS/ LEUKOCYTES:N FR.DF:PT:BLD :QN:AUTOMATE D COUNT LAB 07893-5(HECTOR 1.0-4.0 E9/L NC) Low 0.8 LYMPHOCYTES/ LEUKOCYTES:N FR.DF:PT:BLD :QN:AUTOMATE D COUNT LAB 76449-4(HECTOR 0.2-1.0 E9/L NC) Normal 0.4 MONOCYTES/LE UKOCYTES:NFR .DF:PT:BLD:Q N:AUTOMATED COUNT LAB 63034-3(HECTOR 0.0-0.5 E9/L NC) Normal 0.3 EOSINOPHILS/ LEUKOCYTES:N FR.DF:PT:BLD :QN:AUTOMATE D COUNT LAB 07131-9(HECTOR 0.0-0.2 E9/L NC) Normal 0.0 BASOPHILS/LE UKOCYTES:NFR .DF:PT:BLD:Q N:AUTOMATED COUNT Performed By: #### [id number], [id number] #### [facility] [address], [place] [address] Collected: 12/18/2017 Status: F Source: [facility] 1:28 PM [facility] TYPE CODE TESTS RESULT OUT OF RANGE REFERENCE UNITS LAB 2339-0(LOIN 55-199 mg/dL C) Normal 110 GLUCOSE:MCNC :PT:BLD:QN: Result Comment: If this glucose result represents a fasting glucose, interpretation should refer to the following reference range: 55-99 mg/dL LAB 3094-0(LOINC) 5-21 mg/dL UREA NITROGEN:MCNC:PT:SER/PLAS:QN: Normal 8 LAB 2160-0(LOINC) 0.5-1.3 mg/dL CREATININE:MCNC:PT:SER/PLAS:QN: Normal 0.5 LAB 3097-3(LOINC) 10-20 No Units UREA NITROGEN/CREATININE:MRTO:PT:SER/ Normal PLAS:QN: 16 LAB 22991-6(LOINC) 8.9-11. mg/dL 1 CALCIUM:MCNC:PT:SER/PLAS:QN: Low 8.4 LAB 2951-2(LOINC) 135-145 mmol/L SODIUM:SCNC:PT:SER/PLAS:QN: Normal 136 LAB 2823-3(LOINC) 3.5-5.3 mmol/L POTASSIUM:SCNC:PT:SER/PLAS:QN: Normal 3.5 LAB 2075-0(LOINC) 101-111 mmol/L CHLORIDE:SCNC:PT:SER/PLAS:QN: Normal 102 LAB 2028-9(LOINC) 21-31 mmol/L CARBON DIOXIDE:SCNC:PT:SER/PLAS:QN: Normal 28 LAB 41322-4(LOINC) 6-16 mEq/L ANION GAP:SCNC:PT:SER/PLAS:QN: Normal 10 Performed By: #### [id number], [id number] #### [facility] [address] [place] [address] EGFR Collected: 12/18/2017 Status: F Source: [employer] 1:28 PM [facility] Order Comment: Order added by Discern Expert. TYPE CODE TESTS RESULT OUT OF RANGE REFERENCE UNITS LAB 89608-6(LO >=59 mL/min/1.7 INC) 3 m2 Normal GLOMERULAR >60 FILTRATION RATE/1.73 SQ M.PREDICTED.NON BLACK:ARVRAT:PT: SER/PLAS:QN:CREA TININE-BASED FORMULA (MDRD) Result Comment: Chronic kidney disease could be indicated at eGFR's of less than 60 mL/min/1.73m2. Kidney failure is indicated at less than 15 mL/min/1.73m2. LAB 45663-5(LOINC) GLOMERULAR >=59 mL/min/1.73 FILTRATION RATE/1.73 SQ m2 M.PREDICTED.BLACK:ARVRAT:PT:SER/PLAS:QN:CREATININE-BASED FORMULA (MDRD) Normal >60 Result Comment: eGFR is race adjusted. AA=. Performed By: #### [id number], [id number], [id number], [id number] #### [facility] [address] [place] [address] LIPASE LEVEL Collected: 12/18/2017 Status: F Source: [facility] 1:28 PM [facility] TYPE CODE TESTS RESULT OUT OF REFERENCE UNITS RANGE LAB 3040-3(HECTOR 13-58 unit/L NC) TRIACYLGLYCEROL Low LIPASE:CCNC:PT:SER/P 12 LAS:QN: Performed By: #### [id number], [id number], [id number], [id number], [id number] #### [facility] [address] [place] [address] OUTSIDE CD DICOM Observed: 12/18/2017 Status: F Source: [facility] 12:00 AM [facility] REPOSITORY Images were obtained outside of [facility] [id number] CT OUTSIDE CD DICOM Observed: 12/18/2017 Status: F Source: [facility] -NBNR 12:00 AM [facility] REPOSITORY Images were obtained outside of [facility] [id number] ED PATIENT SUMMARY Observed: 12/17/2017 Status: F Source: [facility] 2:15 PM [facility] RE[facility] [address] [address] Patient Discharge Instructions Person Information Name: TESS HALL Age: 37 Years Arrival Date: 12/17/2017 9:10 AM Discharge Diagnosis: 1:Nausea and vomiting Primary Care Physician: AYANA CAREY Provider Information Primary Provider: Azar Rayo MD Advanced Crank Hand:None The exam and treatment you received in the Emergency Department were for an urgent problem and are not intended as complete care. It is important that you follow up with a doctor, nurse practitioner, or physician?s assistant softball coach for ongoing care. If your symptoms become worse or you do not improve as expected and you are unable to reach your usual health care provider, you should return to the Emergency Department. We are available 24 hours a day. TESS HALL has been given the following list of patient education materials, prescriptions and follow-up instructions: Follow-up Instructions: With: Address: When: [facility] [address] [place] [address] [facility] (1) In 3 days 12/20/2017 In the event that this physician does not participate in your insurance network, please consult with your insurance company to find a nearby participating provider. Patient Education Materials: Nausea and Vomiting A MESSAGE TO ALL PATIENTS REGARDING OPIOIDS PRESCRIPTION OPIOIDS: WHAT YOU NEED TO KNOW Prescription opioids can be used to help relieve ytqiwqtg-ei-afeyck pain and are often prescribed following a surgery or injury, or for certain health conditions. These medications can be an important p art of the treatment but also come with serious risks. It is important to work with your healthcare provider to make sure you are getting the safest, most effective care. WHAT ARE THE RISKS AND SIDE EFFECTS OF OPIOID USE? Prescription opioids carry serious risks of addiction and overdose, especially with prolonged use. An opioid overdose, often marked by slowed breathing, can cause sudden . The use of prescription o pioids can have a number of side effects as well, even when taken as directed: ? Tolerance?meaning you might need to take more of the medication for the same pain relief ? Physical dependence?meaning you have symptoms of withdrawal when a medication is stopped ? Increased sensitivity to pain ? Constipation ? Nausea, vomiting, and dry mouth ? Sleepiness and dizziness ? Confusion ? Depression ? Low levels of testosterone that can result in lower sex drive, energy, and strength ? Itching and sweating RISKS ARE GREATER WITH: ? History of drug misuse, substance use disorder, or overdose ? Mental health conditions (such as depression or anxiety) ? Sleep apnea ? Older age (65 years and older) ? Avoid alcohol while taking prescription opioids. Also, unless specifically advised by your health care provider, medications to avoid include: ? Benzodiazepines (such as Xanax or Valium) ? Muscle relaxants (such as Soma or Flexeril) ? Hypnotics (such as Ambien or Lunesta) ? Other prescription opioids KNOW YOUR OPTIONS Talk to your health care provider about ways to manage your pain that don?t involve prescription opioids. Some of these options may actually work better and have fewer risks and side effects. Options may include: ? Pain relievers such as acetaminophen, ibuprofen, and naproxen ? Some medication that are also used for depression or seizures ? Physical therapy and exercise ? Cognitive behavioral therapy, a psychological, goal- directed approach, in which patients learn how to modify physical, behavioral, and emotional triggers of pain and stress. IF YOU ARE PRESCRIBED OPIOIDS FOR PAIN: ? Never take opioids in greater amounts or more often than prescribed. ? Follow up with your primary health care provider. o Work together to create a plan on how to manage your pain. o Talk about ways to help manage your pain that don?t involve prescription opioids. o Talk about any and all concerns and side effects. ? Help prevent misuse and abuse o Never sell or share prescription opioids. o Never use another person?s prescription opioids. ? Store prescription opioids in a secure place and out of reach of others (this may include visitors, children, friends, and family). ? Safely dispose of unused prescription opioids: Find your community drug take-back program or your pharmacy mail-back program, or flush them down the toilet, following guidance from the Food and Drug Administration (www.fda.gov/Drugs/ResourcesForYou). ? Visit www.cdc.gov/drugoverdose to learn about the risks of opioids abuse and overdose. ? If you believe you may be struggling with addiction, tell your health career technical counselor and ask for guidance or call [facility]?S National Helpline at 0-478-507-FWDK. e Source: US Department of Health and Human Services/Center for Disease Control & Prevention [facility] Medications Given: Medication Dose Route Sodium Chloride 0.9% intravenous solution 1000.00 mL Initial Volume 1000.00 mL/hr IV Right Antecubit Kiran ondansetron 4.00 mg IV Push Right Antecubit Kiran morphine 2.00 mg IV Push Right Antecubit Kiran famotidine 20.00 mg IV Right Antecubit Kiran promethazine 12.50 mg IV Push Right Antecubit [place] morphine 4.00 mg IV Push Right Antecubit Kiran Medication Information: New Medications Printed Prescriptions famotidine (famotidine 10 mg oral tablet) 1 Tabs By Mouth 2 times a day for 14 Days. Refills: 0. ondansetron (Zofran 4 mg Tab) 1 Tabs By Mouth every 6 hours as needed Nausea for 7 Days. Refills: 0. Comment: Pharmacy Information: Thank you for choosing [facility] Patient Education Materials: Nausea and Vomiting Nausea is a sick feeling that often comes before throwing up (vomiting). Vomiting is a reflex where stomach contents come out of your mouth. Vomiting can cause severe loss of body fluids (dehydration). Children and elderly adults can become dehydrated quickly, especially if they also have diarrhea. Nausea and vomiting are symptoms of a condition or disease. It is important to find the cause of your symptoms. CAUSES ? Direct irritation of the stomach lining. This irritation can result from increased acid production (gastroesophageal reflux disease), infection, food poisoning, taking certain medicines (such as nons teroidal anti-inflammatory drugs), alcohol use, or tobacco use. ? Signals from the brain.?These signals could be caused by a headache, heat exposure, an inner ear disturbance, increased pressure in the brain from injury, infection, a tumor, or a concussion, pain, e motional stimulus, or metabolic problems. ? An obstruction in the gastrointestinal tract (bowel obstruction). ? Illnesses such as diabetes, hepatitis, gallbladder problems, appendicitis, kidney problems, cancer, sepsis, atypical symptoms of a heart attack, or eating disorders. ? Medical treatments such as chemotherapy and radiation. ? Receiving medicine that makes you sleep (general anesthetic) during surgery. DIAGNOSIS Your caregiver may ask for tests to be done if the problems do not improve after a few days. Tests may also be done if symptoms are severe or if the reason for the nausea and vomiting is not clear. Tests may include: ? Urine tests. ? Blood tests. ? Stool tests. ? Cultures (to look for evidence of infection). ? X-rays or other imaging studies. Test results can help your caregiver make decisions about treatment or the need for additional tests. TREATMENT You need to stay well hydrated. Drink frequently but in small amounts.?You may wish to drink water, sports drinks, clear broth, or eat frozen ice pops or gelatin dessert to help stay hydrated.?When you eat, eating slowly may help prevent nausea.?There are also some antinausea medicines that may help prevent nausea. HOME CARE INSTRUCTIONS ? Take all medicine as directed by your caregiver. ? If you do not have an appetite, do not force yourself to eat. However, you must continue to drink fluids. ? If you have an appetite, eat a normal diet unless your caregiver tells you differently. ? Eat a variety of complex carbohydrates (rice, wheat, potatoes, bread), lean meats, yogurt, fruits, and vegetables. ? Avoid high-fat foods because they are more difficult to digest. ? Drink enough water and fluids to keep your urine clear or pale yellow. ? If you are dehydrated, ask your caregiver for specific rehydration instructions. Signs of dehydration may include: ? Severe thirst. ? Dry lips and mouth. ? Dizziness. ? Dark urine. ? Decreasing urine frequency and amount. ? Confusion. ? Rapid breathing or pulse. SEEK IMMEDIATE MEDICAL CARE IF: ? You have blood or brown flecks (like coffee grounds) in your vomit. ? You have black or bloody stools. ? You have a severe headache or stiff neck. ? You are confused. ? You have severe abdominal pain. ? You have chest pain or trouble breathing. ? You do not urinate at least once every 8 hours. ? You develop cold or clammy skin. ? You continue to vomit for longer than 24 to 48 hours. ? You have a fever. MAKE SURE YOU: ? Understand these instructions. ? Will watch your condition. ? Will get help right away if you are not doing well or get worse. Document Released: 03/30/2006 Document Revised: 06/21/2012 Document Reviewed: 08/27/2011 ExitCare? Patient Information ?2014 [employer]. This information is not intended to replace advice given to you by your health care provider. Make sure you discuss any questions you have with your health care provider. RAFAEL Siegel BRIANNA J , have received the following patient education materials/instructions and have verbalized understanding: Patient Education Materials: Nausea and Vomiting Follow-up Instructions: With: Address: When: [facility] [address] [place] [id number] [facility] (1) In 3 days 12/20/2017 Prescriptions: [famotidine (famotidine 10 mg oral tablet)] [ondansetron (Zofran 4 mg Tab)] Patient Signature Date Clinician/Nurse Signature Date 12/17/17 14:15:20 ED PATIENT EDUCATION Observed: 12/17/2017 Status: F Source: [facility] NOTE 2:15 PM MEDICAL CENTER REPOSITORY Anesthesiology Nausea and Vomiting Nausea is a sick feeling that often comes before throwing up (vomiting). Vomiting is a reflex where stomach contents come out of your mouth. Vomiting can cause severe loss of body fluids (dehydration). Children and elderly adults can become dehydrated quickly, especially if they also have diarrhea. Nausea and vomiting are symptoms of a condition or disease. It is important to find the cause of your symptoms. CAUSES ? Direct irritation of the stomach lining. This irritation can result from increased acid production (gastroesophageal reflux disease), infection, food poisoning, taking certain medicines (such as nons teroidal anti-inflammatory drugs), alcohol use, or tobacco use. ? Signals from the brain.?These signals could be caused by a headache, heat exposure, an inner ear disturbance, increased pressure in the brain from injury, infection, a tumor, or a concussion, pain, e motional stimulus, or metabolic problems. ? An obstruction in the gastrointestinal tract (bowel obstruction). ? Illnesses such as diabetes, hepatitis, gallbladder problems, appendicitis, kidney problems, cancer, sepsis, atypical symptoms of a heart attack, or eating disorders. ? Medical treatments such as chemotherapy and radiation. ? Receiving medicine that makes you sleep (general anesthetic) during surgery. DIAGNOSIS Your caregiver may ask for tests to be done if the problems do not improve after a few days. Tests may also be done if symptoms are severe or if the reason for the nausea and vomiting is not clear. Tests may include: ? Urine tests. ? Blood tests. ? Stool tests. ? Cultures (to look for evidence of infection). ? X-rays or other imaging studies. Test results can help your caregiver make decisions about treatment or the need for additional tests. TREATMENT You need to stay well hydrated. Drink frequently but in small amounts.?You may wish to drink water, sports drinks, clear broth, or eat frozen ice pops or gelatin dessert to help stay hydrated.?When you eat, eating slowly may help prevent nausea.?There are also some antinausea medicines that may help prevent nausea. HOME CARE INSTRUCTIONS ? Take all medicine as directed by your caregiver. ? If you do not have an appetite, do not force yourself to eat. However, you must continue to drink fluids. ? If you have an appetite, eat a normal diet unless your caregiver tells you differently. ? Eat a variety of complex carbohydrates (rice, wheat, potatoes, bread), lean meats, yogurt, fruits, and vegetables. ? Avoid high-fat foods because they are more difficult to digest. ? Drink enough water and fluids to keep your urine clear or pale yellow. ? If you are dehydrated, ask your caregiver for specific rehydration instructions. Signs of dehydration may include: ? Severe thirst. ? Dry lips and mouth. ? Dizziness. ? Dark urine. ? Decreasing urine frequency and amount. ? Confusion. ? Rapid breathing or pulse. SEEK IMMEDIATE MEDICAL CARE IF: ? You have blood or brown flecks (like coffee grounds) in your vomit. ? You have black or bloody stools. ? You have a severe headache or stiff neck. ? You are confused. ? You have severe abdominal pain. ? You have chest pain or trouble breathing. ? You do not urinate at least once every 8 hours. ? You develop cold or clammy skin. ? You continue to vomit for longer than 24 to 48 hours. ? You have a fever. MAKE SURE YOU: ? Understand these instructions. ? Will watch your condition. ? Will get help right away if you are not doing well or get worse. Document Released: 03/30/2006 Document Revised: 06/21/2012 Document Reviewed: 08/27/2011 ExitCare? Patient Information ?2015 [employer]. This information is not intended to replace advice given to you by your health care provider. Make sure you discuss any questions you have with your health care provider. ED CLINICAL SUMMARY Observed: 12/17/2017 Status: F Source: [facility] 2:15 PM MEDICAL CENTER REPOSITORY [place] [id number] ED Clinical Summary Person Information Name: TESS HALL/[facility] Age: 37 Years : 1980 12:00 AM Sex: Female Language: Maltese PCP: AYANA CAREY Marital Status: Visit Id: Visit Reason: Vomiting; Nausea; NAUSEA, VOMITING, P/O 1 WK Speciality: Acuity: 3 Enc Type: Emergency Med Service: Emergency Arrival: 12/17/2017 9:10 AM Discharge: 12/17/2017 2:15 PM LOS: 000 05:05 Checkin: 12/17/2017 9:10 AM Checkout: 12/17/2017 2:15 PM Dispo Type: Home (Routine DC) EVENTS: Event Name Event Status Request Date/Time Start Date/Time Complete Date/Time Arrive Complete 12/17/2017 9:10 AM 12/17/2017 9:10 AM 12/17/2017 9:10 AM Document Home Meds Request 12/17/2017 9:10 AM Triage Complete 12/17/2017 9:10 AM 12/17/2017 9:24 AM 12/17/2017 9:24 AM Bed Assign Complete 12/17/2017 9:24 AM 12/17/2017 9:24 AM 12/17/2017 9:[address] Exam Complete 12/17/2017 9:24 AM 12/17/2017 9:39 AM 12/17/2017 9:39 AM RN Exam Complete 12/17/2017 9:24 AM 12/17/2017 9:34 AM 12/17/2017 9:34 AM Meds Admin Complete 12/17/2017 9:28 AM 12/17/2017 10:28 AM Pending Labs Request 12/17/2017 9:28 AM Lab Request 12/17/2017 9:28 AM Urine Collect Request 12/17/2017 9:28 AM Patient Care Request 12/17/2017 9:28 AM Registration Complete 12/17/2017 9:39 AM 12/17/2017 10:01 AM 12/17/2017 10:01 AM Meds Admin Complete 12/17/2017 9:48 AM 12/17/2017 10:11 AM Pending Labs Complete 12/17/2017 9:51 AM 12/17/2017 9:51 AM 12/17/2017 10:11 AM Lab Complete 12/17/2017 9:51 AM 12/17/2017 9:51 AM 12/17/2017 10:11 AM Pending Labs Complete 12/17/2017 9:54 AM 12/17/2017 9:54 AM 12/17/2017 9:54 AM Lab Complete 12/17/2017 9:54 AM 12/17/2017 9:54 AM 12/17/2017 9:54 AM Reg Complete Request 12/17/2017 10:01 AM Reg Bed Request Complete 12/17/2017 10:01 AM 12/17/2017 10:01 AM 12/17/2017 10:01 AM Meds Admin Complete 12/17/2017 11:23 AM 12/17/2017 11:58 AM Meds Admin Cancel 12/17/2017 11:28 AM 12/17/2017 11:[address] Exam Complete 12/17/2017 11:29 AM 12/17/2017 11:29 AM 12/17/2017 11:29 AM Registration Request 12/17/2017 11:29 AM Pending Labs Complete 12/17/2017 12:08 PM 12/17/2017 12:08 PM 12/17/2017 12:08 PM Discharge Complete 12/17/2017 1:27 PM 12/17/2017 2:15 PM 12/17/2017 2:15 PM Transfer Complete 12/17/2017 2:15 PM 12/17/2017 2:15 PM 12/17/2017 2:15 PM ADDRESS: [address] [place] [phone] PHYS DOC NOTES: MEDICAL INFORMATION: Prescriptions Given: Prescription Display famotidine (famotidine 10 mg oral tablet) 10 mg = 1 tab(s), Oral, BID, X 14 day(s), # 28 tab(s), Refills(s) 0 ondansetron (Zofran 4 mg Tab) 4 mg = 1 tab(s), Oral, q6hr, PRN Nausea, X 7 day(s), # 20 tab(s), Refills(s) 0 PATIENT EDUCATION INFORMATION: Instructions: Nausea and Vomiting Follow up: With: Address: When: [facility] [address] [place] [address] Business (1) In 3 days 12/20/2017 DIAGNOSIS: 1:Nausea and vomiting ED NOTE-PHYSICIAN Observed: 12/17/2017 Status: F Source: [facility] 1:32 PM MEDICAL CENTER REPOSITORY Basic Information Time Seen: BALTA PEARCE DO 12/17/2017 09:39 Chief Complaint nausea and vomiting started this morning. pt was discharged from the [facility] yesterday after having 1/4 of kidney removed ( cancerous mass) History of Present Illness 37 year old female presents with nausea/vomiting. Accompanied by two friends/family. Had surgery at [facility] last week to remove 1/3 left kidney due to kidney mass. 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 [place] well going to bed last night, woke up this morning with nausea and vomiting, at least 5 episodes this morning- bilious, nonbloody. Associated L sided abdominal pain at surgical site, states it is difficult to find a position of comfort due to murtaza and drain. Taking oxycodone Q8H at home for pain. Discharged with L sided DAVID drain, which she reports has been steadily but slowly draining, last emptied yesterday evening. Denies fever or chills. Review of Systems General: Denies fever, chills Head: denies headache EENT: denies diplopia, blurry vision, tinnitus, ear pain, nasal congestion, rhinorrhea, dysphagia, sore throat CV: denies chest pain, palpitations, tachycardia, sensation of arrhythmia Resp: denies cough, SOB, dyspnea UG: denies dysuria, hematuria, changes in urinary frequency Neuro: denies changes in consciousness, syncope, weakness, numbness, tingling Musc: denies muscle cramps, joint pain Derm: denies skin changes, rashes, lesions Psych: denies anxiety, depression, suicidal ideation, homicidal ideation Remainder as per HPI. Physical Exam Vitals & Measurements T: 36.5 ?C (Oral) HR: 92(Monitored) RR: 20 BP: 155/95 SpO2: 98% HT: 165 cm WT: 136.2 kg BMI: 50.03 General: awake, alert, frequent wimpering but no acute distress Head: atraumatic, normocephalic EENT: EOMI, PERRL, oral mucosa moist, pharynx nonerythematous and without exudate Neck: full ROM, no lymphadenopathy CV: regular rate and rhythm, normal S1 and S2, no murmurs/gallops/rubs Resp: in no respiratory distress, clear to auscultation bilaterally, no wheezes or rhonchi Abdomen: Surgical site with murtaza L lateral abdomen- site appears clean and dry with no surrounding erythema. DAVID drain in place with minimal serosanginous output. BS hypoactive. Abdomen is otherw ise soft, nondistended. Diffuse mild tenderness to palpation. Extremities: nonpitting edema of lower extremities bilat, not associated with erythema. Posterior tibial pulses +2/4 bilat. no cyanosis, clubbing. Derm: no rashes or lesions Neuro: CN II-XII intact, strength +5/5 in all 4 extremities, sensation to gross touch symmetric Psych: though coherent, speech well articulated, pleasant and cooperative Images N/A Medical Decision Making Nausea and vomiting in the context of recent abdominal surgery. Abdominal exam is normal and surgical site without evidence of infection. Labs are reassuring with anemia of 9.6, which is acceptable given recent major surgery. No significant electrolyte disturbance. 1110: Patient reassessed. Reports nausea is only mildly improved with zofran. Pain remains uncontrolled. Repeat dose of morphine given post-op status and phenergan orders placed. In the ER the patient did receive IVF. Nausea and pain were controlled. After medications was able to tolerate both oral fluids and solids. She is discharged with zofran and pepcid to go and instru ctions to follow-up with her PCP. Surgical follow-up as scheduled next week. Assessment/Plan 1. Nausea and vomiting Orders: famotidine, 10 mg = 1 tab(s), Oral, BID, X 14 day(s), # 28 tab(s), Refills(s) 0 ondansetron, 4 mg = 1 tab(s), Oral, q6hr, PRN Nausea, X 7 day(s), # 20 tab(s), Refills(s) 0 Medications Administered Given NS 1000 ml Bolus 1,000 mL, 1000 mL, IV famotidine 10 mg/mL IV Anais, 20 mg, IV morphine 2 mg/mL Inj, 4 mg, IV Push morphine 2 mg/mL Inj, 2 mg, IV Push Phenergan 25 mg/mL Injection, 12.5 mg, IV Push Zofran 4 mg/2 mL Injection, 4 mg, IV Push Disposition Plan Patient Discharge Condition stable Discharge Disposition home Discharge Prescription List Prescriptions famotidine 10 mg oral tablet, 10 mg= 1 tab(s), Oral, BID Zofran 4 mg Tab, 4 mg= 1 tab(s), Oral, q6hr, PRN Follow-up With When Contact Information [facility] In 3 days 12/20/2017 EDT [address] [place] [address] Business (1) Additional Instructions: Patient Education Nausea and Vomiting Attestation Patient was treated and evaluated by the Resident. The attending physician was in the Emergency Department at all times and supervised care. The case was discussed with the attending physician and susie gnostics were reviewed as needed. Problem List/Past Medical History Ongoing No qualifying data Historical Cancer Medications Inpatient No active inpatient medications Home famotidine 10 mg oral tablet, 10 mg= 1 tab(s), Oral, BID Zofran 4 mg Tab, 4 mg= 1 tab(s), Oral, q6hr, PRN Allergies No Known Allergies Social History Alcohol Substance Abuse Tobacco Cigarettes, 12/17/2017 Lab Results WBC: 7.2 E9/L (12/17/17 09:51:00 EDT) RBC: 3.4 E12/L Low (12/17/17 09:51:00 EDT) Hgb: 9.6 gm/dL Low (12/17/17 09:51:00 EDT) Hct: 28.1 % Low (12/17/17 09:51:00 EDT) MCV: 82 fL (12/17/17 09:51:00 EDT) MCH: 27.9 pg (12/17/17 09:51:00 EDT) MCHC: 34 gm/dL (12/17/17 09:51:00 EDT) RDW: 15.2 % High (12/17/17 09:51:00 EDT) Platelet: 292 E9/L (12/17/17 09:51:00 EDT) MPV: 7.2 fL (12/17/17 09:51:00 EDT) Neutro Auto: 75.7 % High (12/17/17 09:51:00 EDT) Lymph Auto: 13.4 % Low (12/17/17 09:51:00 EDT) Martin Auto: 6.7 % (12/17/17 09:51:00 EDT) Eos Auto: 3.6 % (12/17/17 09:51:00 EDT) Basophil Auto: 0.6 % (12/17/17 09:51:00 EDT) Neutro Absolute: 5.5 E9/L (12/17/17 09:51:00 EDT) Lymph Absolute: 1 E9/L (12/17/17 09:51:00 EDT) Martin Absolute: 0.5 E9/L (12/17/17 09:51:00 EDT) Eos Absolute: 0.3 E9/L (12/17/17 09:51:00 EDT) Basophil Absolute: 0 E9/L (12/17/17 09:51:00 EDT) Glucose Lvl: 144 mg/dL (12/17/17 09:51:00 EDT) BUN: 11 mg/dL (12/17/17 09:51:00 EDT) Creatinine: 0.5 mg/dL (12/17/17 09:51:00 EDT) eGFR: >60 (12/17/17 09:51:00 EDT) eGFR AA: >60 (12/17/17 09:51:00 EDT) BUN/Creat Ratio: 22 High (12/17/17 09:51:00 EDT) Sodium Lvl: 134 mmol/L Low (12/17/17 09:51:00 EDT) Potassium Lvl: 3.8 mmol/L (12/17/17 09:51:00 EDT) Chloride: 102 mmol/L (12/17/17 09:51:00 EDT) CO2: 24 mmol/L (12/17/17 09:51:00 EDT) AGAP: 12 mEq/L (12/17/17 09:51:00 EDT) Calcium Lvl: 8 mg/dL Low (12/17/17 09:51:00 EDT) Alk Phos: 115 Int._Unit/L High (12/17/17 09:51:00 EDT) ALT: 14 Int._Unit/L (12/17/17 09:51:00 EDT) AST: 14 Int._Unit/L (12/17/17 09:51:00 EDT) Total Protein: 6 gm/dL (12/17/17 09:51:00 EDT) Albumin Lvl: 2.2 gm/dL Low (12/17/17 09:51:00 EDT) Globulin: 3.8 gm/dL (12/17/17 09:51:00 EDT) A/G Ratio: 0.6 Low (12/17/17 09:51:00 EDT) Bili Total: 0.3 mg/dL (12/17/17 09:51:00 EDT) Bili Direct: <0.1 (12/17/17 09:51:00 EDT) Bili Indirect: Unable to Calculate Abnormal (12/17/17 09:51:00 EDT) Lipase Lvl: 12 unit/L Low (12/17/17 09:51:00 EDT) Beta hCG Ql: NEGATIVE1 (12/17/17 09:51:00 EDT) Diagnostic Results No qualifying data available. EKG Results NSR with no ST changes Result Comment: Electronically Signed By: Girma PADGETT, Azar\.br\Date and Time Signed: 01/01/18 08:48 EDT CBC W/ AUTO DIFF Collected: 12/17/2017 Status: F Source: [facility] 9:51 AM MEDICAL CENTER REPOSITORY TYPE CODE TESTS RESULT OUT OF REFERENCE UNITS RANGE LAB 96629-6(LO 4.0-11.0 E9/L INC) LEUKOCYTES Normal 7.2 LAB 789-8(LOIN 4.3-5.9 E12/L C) Low ERYTHROCYTES:NCNC: 3.4 PT:BLD:QN:AUTOMATE D COUNT LAB 718-7(LOIN 12.0-16.0 gm/dL C) Low HEMOGLOBIN:MCNC:PT 9.6 :BLD:QN: LAB 4544-3(HECTOR 34.0-46.0 % NC) Low HEMATOCRIT:VFR:PT: 28.1 BLD:QN:AUTOMATED COUNT LAB 788-0(LOIN 10.9-14.2 % C) ERYTHROCYTE High DISTRIBUTION 15.2 WIDTH:RATIO:PT:RBC :QN:AUTOMATED COUNT LAB 785-6(LOIN 27.0-34.0 pg C) ERYTHROCYTE Normal MEAN CORPUSCULAR 27.9 HEMOGLOBIN:ENTMASS :PT:RBC:QN:AUTOMAT ED COUNT LAB 786-4(LOIN 31.4-39.3 gm/dL C) ERYTHROCYTE Normal MEAN CORPUSCULAR 34.0 HEMOGLOBIN CONCENTRATION:MCNC :PT:RBC:QN:AUTOMAT ED COUNT LAB 787-2(LOIN 80.0-100.0 fL C) ERYTHROCYTE Normal MEAN CORPUSCULAR 82.0 VOLUME:ENTVOL:PT:R BC:QN:AUTOMATED COUNT LAB 14597-4(LO 6.4-10.8 fL INC) PLATELET MEAN Normal VOLUME:ENTVOL:PT:B 7.2 LD:QN:AUTOMATED COUNT LAB 777-3(LOIN 150.0-500.0 E9/L C) Normal PLATELETS:NCNC:PT: 292.0 BLD:QN:AUTOMATED COUNT Performed By: #### [id number], [id number], [id number], [id number], [id number], [id number], [id number] #### [facility] [address] [place] [address] 30578 AUTO DIFF Collected: 12/17/2017 Status: F Source: [facility] 9:51 AM [facility] REPOSITORY Order Comment: Order Added by Discern Expert. TYPE CODE TESTS RESULT OUT OF RANGE REFERENCE UNITS LAB 751-8(LOINC 36.0-75.0 % ) High 75.7 NEUTROPHILS: NCNC:PT:BLD: QN:AUTOMATED COUNT LAB 731-0(LOINC 14.0-50.0 % ) Low 13.4 LYMPHOCYTES: NCNC:PT:BLD: QN:AUTOMATED COUNT LAB 742-7(LOINC 4.0-14.0 % ) Normal 6.7 MONOCYTES:NC NC:PT:BLD:QN :AUTOMATED COUNT LAB 711-2(LOINC 0.0-8.0 % ) Normal 3.6 EOSINOPHILS: NCNC:PT:BLD: QN:AUTOMATED COUNT LAB 704-7(LOINC 0.0-2.0 % ) Normal 0.6 BASOPHILS:NC NC:PT:BLD:QN :AUTOMATED COUNT LAB 55541-2(HECTOR 2.0-7.5 E9/L NC) Normal 5.5 NEUTROPHILS/ LEUKOCYTES:N FR.DF:PT:BLD :QN:AUTOMATE D COUNT LAB 60919-6(HECTOR 1.0-4.0 E9/L NC) Normal 1.0 LYMPHOCYTES/ LEUKOCYTES:N FR.DF:PT:BLD :QN:AUTOMATE D COUNT LAB 97609-3(HECTOR 0.2-1.0 E9/L NC) Normal 0.5 MONOCYTES/LE UKOCYTES:NFR .DF:PT:BLD:Q N:AUTOMATED COUNT LAB 60716-4(HECTOR 0.0-0.5 E9/L NC) Normal 0.3 EOSINOPHILS/ LEUKOCYTES:N FR.DF:PT:BLD :QN:AUTOMATE D COUNT LAB 21699-5(HECTOR 0.0-0.2 E9/L NC) Normal 0.0 BASOPHILS/LE UKOCYTES:NFR .DF:PT:BLD:Q N:AUTOMATED COUNT Performed By: #### [id number], [id number], [id number], [id number], [id number], [id number], [id number] #### [facility] [address] [place] [address]191 LIPASE LEVEL Collected: 12/17/2017 Status: F Source: [facility] 9:51 AM [facility] REPOSITORY TYPE CODE TESTS RESULT OUT OF REFERENCE UNITS RANGE LAB 3040-3(HECTOR 13-58 unit/L NC) TRIACYLGLYCEROL Low LIPASE:CCNC:PT:SER/P 12 LAS:QN: Performed By: #### [id number], [id number], [id number], [id number], [id number], [id number], [id number] #### [facility] [address] [place] [address]226 BMP Collected: 12/17/2017 Status: F Source: [facility] 9:51 AM [facility] REPOSITORY TYPE CODE TESTS RESULT OUT OF RANGE REFERENCE UNITS LAB 2339-0(LOIN 55-199 mg/dL C) Normal 144 GLUCOSE:MCNC :PT:BLD:QN: Result Comment: If this glucose result represents a fasting glucose, interpretation should refer to the following reference range: 55-99 mg/dL LAB 3094-0(LOINC) 5-21 mg/dL UREA NITROGEN:MCNC:PT:SER/PLAS:QN: Normal 11 LAB 2160-0(LOINC) 0.5-1.3 mg/dL CREATININE:MCNC:PT:SER/PLAS:QN: Normal 0.5 LAB 3097-3(LOINC) 10-20 No Units UREA NITROGEN/CREATININE:MRTO:PT:SER/ High PLAS:QN: 22 LAB 66482-7(LOINC) 8.9-11. mg/dL 1 CALCIUM:MCNC:PT:SER/PLAS:QN: Low 8.0 LAB 2951-2(LOINC) 135-145 mmol/L SODIUM:SCNC:PT:SER/PLAS:QN: Low 134 LAB 2823-3(LOINC) 3.5-5.3 mmol/L POTASSIUM:SCNC:PT:SER/PLAS:QN: Normal 3.8 LAB 2075-0(LOINC) 101-111 mmol/L CHLORIDE:SCNC:PT:SER/PLAS:QN: Normal 102 LAB 2028-9(LOINC) 21-31 mmol/L CARBON DIOXIDE:SCNC:PT:SER/PLAS:QN: Normal 24 LAB 95876-1(LOINC) 6-16 mEq/L ANION GAP:SCNC:PT:SER/PLAS:QN: Normal 12 Performed By: #### [id number], [id number], [id number], [id number], [id number], [id number], [id number] #### [facility] [address] [place] [address] EGFR Collected: 12/17/2017 Status: F Source: [facility] 9:51 AM [facility] REPOSITORY Order Comment: Order added by Discern Expert. TYPE CODE TESTS RESULT OUT OF RANGE REFERENCE UNITS LAB 22810-5(LO >=59 mL/min/1.7 INC) 3 m2 Normal GLOMERULAR >60 FILTRATION RATE/1.73 SQ M.PREDICTED.NON BLACK:ARVRAT:PT: SER/PLAS:QN:CREA TININE-BASED FORMULA (MDRD) Result Comment: Chronic kidney disease could be indicated at eGFR's of less than 60 mL/min/1.73m2. Kidney failure is indicated at less than 15 mL/min/1.73m2. LAB 69790-7(LOINC) GLOMERULAR >=59 mL/min/1.73 FILTRATION RATE/1.73 SQ m2 M.PREDICTED.BLACK:ARVRAT:PT:SER/PLAS:QN:CREATININE-BASED FORMULA (MDRD) Normal >60 Result Comment: eGFR is race adjusted. AA=. Performed By: #### [id number], [id number], [id number], [id number], [id number], 2607011, [id number] #### [facility] [address] [place] [address] HEP FUNC PANEL Collected: 12/17/2017 Status: F Source: [facility] 9:51 AM [facility] TYPE CODE TESTS RESULT OUT OF RANGE REFERENCE UNITS LAB 1744-2(HECTOR 6-46 Int._Unit/ NC) Normal L ALANINE 14 AMINOTRANSFERAS E:CCNC:PT:SER/P LAS:QN:NO ADDITION OF P-5'-P LAB 1920-8(HECTOR 5-43 Int._Unit/ NC) Normal L ASPARTATE 14 AMINOTRANSFERAS E:CCNC:PT:SER/P LAS:QN: LAB 1751-7(HECTOR 3.3-5.0 gm/dL NC) Low ALBUMIN:MCNC:PT 2.2 :SER/PLAS:QN: LAB 15460-3(LO 1.4-4.0 gm/dL INC) Normal GLOBULIN:MCNC:P 3.8 T:SER:QN:CALCUL ATED LAB 06819-9(LO 1.1-2.2 INC) Low ALBUMIN/GLOBULI 0.6 N:MCRTO:PT:SER: QN: LAB 6768-6(HECTOR 21-98 Int._Unit/ NC) High L ALKALINE 115 PHOSPHATASE:CCN C:PT:SER/PLAS:Q N: LAB 1968-7(HECTOR 0.1-0.4 mg/dL NC) Normal BILIRUBIN.GLUCU <0.1 RONIDATED+BILIR UBIN.ALBUMIN BOUND:MCNC:PT:S ER/PLAS:QN: LAB 74126-2(LO 0.1-0.9 mg/dL INC) Abnormal BILIRUBIN.NON-G UTC LUCURONIDATED:M SCNC:PT:SER/TIM S:QN: Result Comment: Result verified by Discern Rule. Performed result UTC (Unable to Calculate) was sent as an Alpha code due the inability to calculate a valid numeric value. LAB 1975-2(LOINC) 0.0-1.1 mg/dL BILIRUBIN:MCNC:PT:SER/PLAS:QN: Normal 0.3 LAB 2885-2(LOINC) 6.0-7.8 gm/dL PROTEIN:MCNC:PT:SER/PLAS:QN: Normal 6.0 Performed By: #### [id number], [id number], [id number], [id number], [id number], 3777828, [id number] #### [facility] [address] [place] [address] B HCG QUAL Collected: 12/17/2017 Status: F Source: [employer] 9:51 AM [facility] REPOSITORY TYPE CODE TESTS RESULT OUT OF RANGE REFERENCE UNITS LAB 26685490(LO INC) Normal Beta NEGATIVE hCG Ql Performed By: #### [id number], [id number], [id number], [id number], 8136160, 4087451, [id number] #### [facility] [address] [place] [address] NURSING PROG Observed: 12/15/2017 Status: COMPLETED Source: [facility] 5:47 PM [facility] [place] REPOSITORY HNO ID: [id number] Author: Kaila Hurst (Rn) BHARGAVI Khalil Service: (none) Author Type: Registered Nurse Type: Nursing Progress Note Filed: 12/15/2017 6:06 PM Note Text: Nursing Progress Note Patient Name: Tess Hall Patient Location: [place] [address] Daily Note: Patient received O2 tank prior to discharge at 1800, discharge instructions given to patient and spouse. Will continue with discharge and transport with provide a ride. This note was completed by: Kaila Khalil RN CONSULT PROG Observed: 12/15/2017 Status: COMPLETED Source: [facility] 5:05 PM [facility] REPOSITORY HNO ID: [id number] Author: Ligia Briscoe Service: Endocrinology Author Type: Nurse Practitioner Type: Consult Progress Note Filed: 12/15/2017 5:08 PM Note Text: 12/15/2017 5:08 PM Plan to discharge patient home today. Discharge Plan: These will serve as final discharge recommendations. DM DISCHARGE PLAN: Freestyle Lite test strips (epic code: 10064) ?DISP: 1 box (100/box) w/ refill Freestyle lancets (epic code: 98174) ?DISP: 1 box (100/box) w/ refill Patient denies needing script for insulin, pen needles, Bydreon Exedrin4 (Bydureon) ?2mg reconstituted pen (once weekly on Fridays) Glipizide 10 mg BID Metformin 1000 mg BID Basalglar 20 units pm ? ?Check blood sugars Three times a Day ? ?Diet: As per Unit Dietitian ? ?Exercise as prescribed by primary team ? ? ?Follow up with hard candy batch mixer and qc analyst as recommended. ? ?Patient will need follow-up with her home crusher loader operator/PCP in 1 week after discharge. ? ?Diabetes Care Team Hospital Discharge Help Line: [phone] Ligia Briscoe APRN.FREIGHT TRAFFIC CONSULTANT, [id number] PROGRESS Observed: 12/15/2017 Status: COMPLETED Source: [facility] 3:54 PM [facility] REPOSITORY HNO ID: [id number] Author: Nevaeh De Santiago) BHARGAVI Yanez Service: Nursing Author Type: Registered Nurse Type: Progress Notes Filed: 12/15/2017 4:07 PM Note Text: Glargine U300 Study/IRB #[id number] Today is day 5 for patients participation in the Glargine U300 trial. No issues or concerns with the study insulin at this time. No adverse events or allergic reactions to report regarding study insulin. Patient reports eating fine and being discharged today. Patient does not qualify for outpatient arm of the trial and will be discontinued from study insulins upon D/C. 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 Patient is aware and understands these instructions. CASE MANAGEM Observed: 12/15/2017 Status: COMPLETED Source: [facility] 3:48 PM [facility] [place] REPOSITORY HNO ID: [id number] Author: Adelia Ramirez (Sw) Service: Care Management Author Type: Systems Design Engineer Type: Care Mgt Progress Note Filed: 12/15/2017 4:31 PM Note Text: CARE MANAGEMENT DISCHARGE NOTE SERVICE DATE: 12/15/2017 SERVICE TIME: 3:49 PM LOS: 6 days Admission Date: 12/09/2017 DISCHARGE ARRANGEMENT (list agency and phone number) Home Care - PT Provider: [facility] CAREGIVER ASSESSMENT: Caregiver is ready, willing and able to meet the patient's needs as recommended by the inter-professional team? Yes Patient's transition needs and plan for meeting these needs: Pt will have home PT. Does the patient have an acute stroke diagnosis, or has the patient had a stroke during this admission? No HANDOFF COMMUNICATION: PCP and C TRANSPORTATION ARRANGEMENTS: [employer] (through [employer]) ADDITIONAL CONTACT RESOURCES: Chart reviewed and noted need for home O2 and home PT. Met with pt at bedside. Pt is aware of need and agreeable to both home O2 and home PT. Referrals sent to local providers. Pt has been accepted by [facility] and [facility] home O2. Call received from [facility]. Pt does not qualify for home O2 based on current diagnosis. Pt's insurance will only cover home o2 if pt has a chronic condition. Met with pt to discuss. She demonstrated understanding. Sagar PADGETT to update. Pt aware of arrangements. Pt said she will call [facility] and arrange her own transportation. No further needs identified. SIGNATURE: SUKH Pyle M.Ed, [facility] PATIENT NAME: Tess Hall DATE: December 15, 2017 TIME: 3:49 PM PAGER/CONTACT #: [phone] PLAN OF CARE Observed: 12/15/2017 Status: COMPLETED Source: [facility] 2:35 PM [facility] REPOSITORY O ID: [id number] Author: Patsy Amezquita (Meat Sales And Storage Manager) Service: (none) Author Type: (none) Type: Plan of Care Filed: 12/15/2017 2:35 PM Note Text: Pharmacy Discharge Medication Service: This patient has elected to receive their discharge prescriptions through the [facility] Bedside Prescription Delivery program. The prescriptions are currently being processed. A follow-up note will be entered once the prescriptions have been filled and delivered to the patient. Please contact me with any questions or updates to the patient's discharge medications. Patsy Amezquita ([employer]) DCT Contact Info: [id number] PLAN OF CARE Observed: 12/15/2017 Status: COMPLETED Source: [facility] 2:35 PM [facility] REPOSITORY HNO ID: [id number] Author: Patsy Amezquita ([employer]) Service: (none) Author Type: (none) Type: Plan of Care Filed: 12/15/2017 2:35 PM Note Text: NATURAL RESOURCES ENGINEER BEDSIDE DELIVERY SURVEY 1. Patient to use [facility] Bedside Delivery - YES 2. If fax, patient would like us to fax prescriptions to Pharmacy of choice a. Pharmacy: b. Location: c. Phone: 3. Insurance card on file - YES 4. Credit card for payment - NO THERAPY NT Observed: 12/15/2017 Status: COMPLETED Source: [facility] 11:47 AM [facility] REPOSITORY HNO ID: [id number] Author: Imelda Branch (Pt) Laurent Service: Physical Therapy Author Type: Physical Therapist Type: Therapy (PT/OT/Speech/Resp) Filed: 12/15/2017 11:54 AM Note Text: Physical Therapy Evaluation SERVICE DATE: 12/15/2017 SERVICE TIME: 1051 to 1131 ROOM: [place] [address] Recommended Discharge Disposition: Home PT Anticipated Discharge Needs: Physical Assist at Home Physical Assist at Home for: Ambulation;Cleaning;Laundry;Meals;Stairs;Safety;Self Care;Shopping;Transportation Recommended Discharge Equipment: To Be Determined PT Recommendations to Nursing: Ambulate without device;To bathroom;Transfer to/from chair;OOB for Meals;With assist of 1 person Device: No Device PT 6 Clicks Score: 21 Precautions/Activity Restrictions: Fall Risk;Lines/Tubes/Drains;Abdominal ASSESSMENT : SOB, pain, fatigue and minimal dizziness reported during 1st ambulation trial. Pt denied lightheadedness. SOB, fatigue and pain noted during 2nd ambulation trial. Pt also tearful during PT requiring encouragement from PT. Pt able to perform functional mobility with SBA-min A x 1 this date. Anticipate that patient will be safe to return home from a PT perspective with home PT and prn assist for iADLs, ADLs and safe mobility. Pt requires skilled therapy to address current functional limitations and impairments and maximize activity tolerance to be within safe limits. Pt can benefit from post acute skilled PT to increase independence and safety during functional mobility, increase strength, increase balance and increase activity tolerance. Patient Disposition at Start of Session: Supine in Bed;Call Ellis in Reach Patient Disposition at End of Session: Supine in Bed;Call Ellis in Reach Tolerance Limited By Fatigue;Pain;Other: See Comment (SOB, minimal dizziness) Physical Therapy Problem List: Pain;Safety Deficits;Decreased Activity Tolerance;Functional Mobility Impairment;Decreased Strength;Balance Impaired;Decreased Range Of Motion Patient /Caregiver Goals: Go Home Goals for Plan of Care: Able to perform HEP with: Independent Rolling with: Independent Transfer supine to/from sit with: Independent Transfer sit to/from stand with: Independent Ambulate with: Independent Distance: 100 Device: No Device Ambulate up and down steps with: Supervision Number of steps: 12 Device: Rail Rehab Potential: Good PLAN: Treatment Frequency (times per week): 3 Current admission Treatment Interventions: Education;Self Care / Home Management;Energy Conservation Training;Strengthening;Functional Mobility Training;Balance Training;Neuromuscular Re-education Plan of Care developed with: Patient;Other: See Comment (significant other) TREATMENT INTERVENTIONS: Therapy Diagnosis: Reduced mobility-other Interventions Provided: Evaluation;Therapeutic Activity (37669);Gait Training (96898) $ Evaluation-Low (30297) Billed Units: 1 unit Therapeutic Activity (61580) Treatment Minutes: 12 1 unit Skilled Intervention(s): supine->sit: verbal cues for log roll technique. Pt unable to perform log roll technique despite cueing from PT. Sit->supine: min A x 1 for L LE into bed. Instructed patient in sit to supine using safe, effective technique Instructed patient in supine to and from sit pushing with upper extremities to sit up Sit<>stand from EOB x 2 trials: Instruction in stand to sit technique with lower extremities touching chair/bed and reaching back for surface Instruction in sit to and from stand technique with proper hand placement and body positioning at edge of bed/chair Pt education provided on abdominal precautions prior to mobilizing. Patient education provided on role, benefits, goal of PT, PT POC, benefits of sitting in chair, benefits of ambulating with RN/PCNA while in house, use of call light to increase safety in room, benefits of post acute PT and post acute PT D/C recommendation. Gait Training (47833) Treatment Minutes: 11 1 unit Skilled Intervention(s): Pt able to ambulate in room x 2 trials without AD and SBA-CGA x 1 for both trials. Verbal cues for activity pacing and PLB. Increased time required to ambulate. RT present to monitor O2 levels and perform desaturation study. Seated rest break required in between ambulation trials. Directional cueing provided for safe line management. Total Timed Code Treatment Minutes: 23 Total Treatment Time (minutes): 40 FUNCTIONAL G CODE: PT 6 Clicks Score: 21 (12/15/17 1051) Mobility: Walking and Moving Around Current Status (G8978): CJ (12/15/17 1051) Mobility: Walking and Moving Around Goal Status (G8979): CI (12/15/17 105) Based on clinical assessment and the score on the 6 Clicks Functional Assessment Tool, the G code and corresponding severity modifiers are documented above. SUBJECTIVE: Current Hospital Course: Chart reviewed; 37 year old female POD# 6 s/p open left partial nephrectomy PAST MEDICAL HISTORY Diagnosis Date - Depression - DM2 (diabetes mellitus, type 2) ([facility]) - HLD (hyperlipidemia) - Hx of acute pyelonephritis - Morbid obesity (HCC) - Reactive airway disease - Renal mass - Smoker PAST SURGICAL HISTORY Procedure Laterality Date - SECTION HX 2006 - TUBAL LIGATION HX 2006 Reason for Physical Therapy Consult : unsuccessful mobility Relevant Past Medical History: see eval Patient Report: Pt supine at start of PT, agreeable to PT. Home Environment Patient Lives With: Family;Significant Other Assistance Available: 24 Hour Entry To Home: Ramp Number Of Stairs To Bed/Bath: 0 (to bedroom.2nd floor shower, 1 flight + 2 steps, no rail) Tub/Shower Type: walk in shower with built in seat Equipment Owned: (Pt's mother has stair lift to 2nd floor) Prior Functional Level: Required Assistance;Within Functional Limits Assistance Required With: Self Care;Transportation Prior Functional Level Comments: IND mobility, prn assist for ADLs. OBJECTIVE: CURRENT FUNCTIONAL STATUS: Current Functional Mobility Assist Level Additional Information Rolling Supine to Sit Supervision Sit to Supine Minimal Assistance (for L LE) Scooting Sit to Stand Stand By Assistance Stand to Sit Stand By Assistance Bed to Chair Toilet/Commode Gait Contact Guard Assistance (-SBA x 1) Gait Device: None Gait Distance (feet): 48' and 30' Stairs Curb Step Car Transfer General Gait Deviations: Jade decreased;Lateral sway increased;Wide base of support;Non-functional gait speed;Difficulty changing direction/turning Balance: Static Sitting;Dynamic Sitting;Static Standing;Dynamic Standing Static Sitting Balance: Independent Dynamic Sitting Balance: Supervision Static Standing Balance: Stand By Assistance Dynamic Standing Balance: Contact Guard Assistance Patient lying supine in bed with all 4 bedrails up per pt request (RN notified) at end of PT session, needs within reach, no signs of acute distress noted, significant other present, RN notified. Please see discipline specific clinical documentation flowsheet for complete details for this therapy evaluation/treatment. SIGNATURE: Imelda Mancilla PT PATIENT NAME: Tess Hall DATE: December 15, 2017 TIME: 11:47 AM THERAPY NT Observed: 12/15/2017 Status: COMPLETED Source: [facility] 9:24 AM [facility] REPOSITORY HNO ID: [id number] Author: Imelda Branch (Pt) Laurent Service: Physical Therapy Author Type: Physical Therapist Type: Therapy (PT/OT/Speech/Resp) Filed: 12/15/2017 9:24 AM Note Text: PHYSICAL THERAPY MISSED VISIT SERVICE DATE: 12/15/2017 SERVICE TIME: 0910 to 0910 ROOM: [place] [address] Attempted Evaluation. Patient not seen due to Other: See Comment. Pt using BSC. RN present. Will follow up as able for PT. SIGNATURE: Imelda Mancilla PT PATIENT NAME: Tess Hall DATE: December 15, 2017 TIME: 9:24 AM CONSULT PROG Observed: 12/15/2017 Status: COMPLETED Source: [facility] 8:04 AM [facility] REPOSITORY HNO ID: [id number] Author: Ligia Briscoe Service: Endocrinology Author Type: Nurse Practitioner Type: Consult Progress Note Filed: 12/15/2017 1:04 PM Note Text: DIABETES CARE TEAM NOTE SERVICE DATE: 12/15/2017 SERVICE TIME: 8:04 AM Subjective Summary of History from Prior Record: From original consult note on 12/10/2017 HPI: Ms. Tess Hall is a 37 year old female with a 5 year history of Diabetes Mellitus Type 2 hyperglycemia who was admitted on 12/09/2017, s/p open left partial nephrectomy 12/09/2017 Past medical history significant for HTN, HLD, left renal mass, and asthma. Patient does not exercise. Last HbA1c was 12.7%on 12/26/2015. She has a family history of diabetes in her mother. She is followed by PCP for her diabetes. ? DIABETIC COMPLICATIONS: None ? Pre-Admission DM Regimen: Preadmission oral agents: Exedrin4 (Bydureon) 2mg reconstituted pen (once weekly on Fridays) Glipizide 20 mg BID Metformin 1000 mg BID Preadmission insulin regimen:basalglar 30-40 units pm ? Self Monitoring Blood Glucose: Type of Monitor: Dsg.nrstyle Frequency of Monitorin-3 times a day BG Values: 80-90-120mg/dL Hypoglycemia: Yes, Frequency: once times a week Time of Day in early am wakes up with low usually happen when takes her Bydureon and lantus Symptoms: Shakiness and Sweating Feel symptoms when BS is 40-<70 mg/dL INTERVAL HPI: uneventful Her boyfriend at bedside I walk by myself. PERTINENT ROS: Constitutional:c/o no BM yet Appetite:Intact GI:No N/V and is getting meds for having BM and reported is passing gas Objective PHYSICAL EXAM: BP 140/76 Pulse 101 Temp 36.6 ?C (97.9 ?F) (Oral) Resp 19 LMP 11/20/2017 SpO2 96% General Appearance:A+O x 3 Affect:Pleasant and cooperative Eyes:Sclerae non-icteric Abdomen:obses Skin/Lipohypertrophy:no cyanosis Respiratory unlabored on NC O2 Laboratory Results: Glucose (mg/dL) Date Value 12/15/2017 168 Potassium (mmol/L) Date Value 12/15/2017 3.8 Sodium (mmol/L) Date Value 12/15/2017 136 Chloride (mmol/L) Date Value 12/15/2017 102 CO2 (mmol/L) Date Value 12/15/2017 25 Creatinine (mg/dL) Date Value 12/15/2017 0.70 BUN (mg/dL) Date Value 12/15/2017 10 Anion Gap (mmol/L) Date Value 12/15/2017 9 Calcium (mg/dL) Date Value 12/15/2017 8.0 ALT Date Value Ref Range Status 12/01/2017 12 7 - 38 U/L Final AST Date Value Ref Range Status 12/01/2017 12 (L) 13 - 35 U/L Final Hemoglobin (g/dL) Date Value 12/15/2017 9.1 Hematocrit (%) Date Value 12/15/2017 27.9 WBC (k/uL) Date Value 12/15/2017 7.44 Platelet Count (k/uL) Date Value 12/15/2017 242 Hemoglobin A1C (%) Date Value 12/10/2017 7.2 No results found for: LVEF Diet: GI soft fiber controlled, CCDD Supplements: none Other Pertinent Medications: Steroids no Epidural Diabetes Management in Hospital Hospital BG values or ranges: ? Date AM LUNCH DINNER HS 3AM 12/09/2017 181 137 186(H1)215 237(H2) 181 12/10/2017 172(h1) 167(H1) Lantus 10 u 164(1H) 156(1H) ? 12/11 154(1H) 172(1H) 165(2H) Lantus 14 u 176 ? 12/12 182(4A) 185(4A) 208(4A) Toujeo 26 u 142 ? 12/13 131 161(3H) 176(3A+5A) Toujeo 26 u 169 155 ? 12/14 119(5A) 133(5A) 175(3A+5A) Toujeo 26 u 185 ? ?12/15 ?133(7A) 111(7A)? Impression/Recommendations: Patient with uncontrolled Diabetes Mellitus Type 2 hyperglycemia s/p open left partial nephrectomy 12/09/2017 whom we have been consulted for glycemic control. Patient is enrolled in study with endocrinologies Dr. Ramírez. BG stable and po intake optimal. RECOMMENDATIONS: ? Continue Basal Insulin: Toujeo 26 units with dinner ? Continue Prandial Insulin: Apidra 5 units AC TID ? Continue Supplemental Sliding Scale: Apidra custom scales ACHS ? Accuchecks: ACHS ? Recommend As per Unit Dietitian ? Check HbA1C to see if there was any preceding hyperglycemia. ? Consult CDE regarding: DM Education including likely none TBD does insulin and oral at home ? DM DISCHARGE PLAN: Freestyle Lite test strips (epic code: 42684) ?DISP: 1 box (100/box) w/ refill Freestyle lancets (epic code: 82901) ?DISP: 1 box (100/box) w/ refill Patient denies needing script for insulin, pen needles, Bydreon ? Likely on home oral agents + basal as labs allow ? Check blood sugars Three times a Day ? Diet: As per Unit Dietitian ? Exercise as prescribed by primary team ? Follow up with hard candy batch mixer and qc analyst as recommended. ? Patient will need follow-up with her home crusher loader operator/PCP in 1 week after discharge. ? Diabetes Care Team Hospital Discharge Help Line: [phone] ? ? SIGNATURE: Ligia Briscoe APRN.FREIGHT TRAFFIC CONSULTANT PATIENT NAME: Tess Hall DATE: December 15, 2017 TIME: 8:04 AM PAGER/CONTACT #: [phone] PROGRESS Observed: 12/15/2017 Status: COMPLETED Source: STEGER 6:52 AM [facility] REPOSITORY O ID: [id number] Author: Lawson (Medina Conner Service: Urology Author Type: Resident Type: Progress Notes Filed: 12/15/2017 4:48 PM Note Text: UROLOGY SERVICE PROGRESS NOTE PATIENT INFO: Tess Hall 37 year old DATE: December 15, 2017 S: Overnight had desaturation to 87% on RA, increased to 92 on 2L O2. Pain improving but still complains of sharp incisional pain. No nausea or vomiting. Passing gas and tolerating diet. Ambulated yesterday in room, had some SOB associated with ambulating. Epidural removed, reports voiding has improved. Appropriate response to 1u PRBC. PAST MEDICAL HISTORY Diagnosis Date - Depression - DM2 (diabetes mellitus, type 2) (HCC) - HLD (hyperlipidemia) - Hx of acute pyelonephritis - Morbid obesity (HCC) - Reactive airway disease - Renal mass - Smoker Exam: BP 122/71 Pulse 103 Temp 36.8 ?C (98.2 ?F) (Oral) Resp 20 LMP 11/20/2017 SpO2 92% Intake/Output Summary (Last 24 hours) at 12/15/17 0652 Last data filed at 12/15/17 0600 Gross per 24 hour Intake 1110 ml Output 2186 ml Net -1076 ml UO: 2150 cc (some voids not saved) Drains: 35 cc DAVID General: lying in bed in no acute distress Lungs: + expiratory wheezes, congestion bilaterally with poor excursion on ausculatation + RRR Abdomen: obese, soft, approp tender w/o sophie/guarding, left flank inc clean dry and intact - small amount of skin necrosis at mid wound, no signs of infection Extremities: Trace LE edema -- obese, SCDs on Labs: Recent Labs 12/15/17 0011 12/14/17 0126 12/13/17 0113 WBC 7.44 6.82 9.35 HB 9.1* 7.9* 8.3* HCT 27.9* 24.2* 24.7* PLT 242 207 194 NA 136 136 136 K 3.8 3.2* 3.1* CHLOR 102 101 100 CO2 25 24 22 BUN 10 9 7 CREAT 0.70 0.65 0.61 GLUC 168* 119* 143* Current hospital medications: gabapentin 300 mg cap(s) (NEURONTIN) 300 mg ORAL q 8 H INV INSULIN GLULISINE 7 Units INJECTION (RAPID-ACTING) (APIDRA) (IRB 17-758) 7 Units SUBCUTANEOUS w MEALS potassium chloride ER 40 mEq tab(s) (K-DUR, KLOR-CON) 40 mEq ORAL BID HYDROmorphone 0.2-0.4 mg in NaCl 0.9% (DILAUDID) 0.2-0.4 mg INTRAVENOUS q 3 H PRN acetaminophen 1,000 mg tab(s) (TYLENOL) 1,000 mg ORAL q 6 H oxyCODONE IR 10-15 mg tab(s) (ROXICODONE) 10-15 mg ORAL q 4 H PRN ondansetron (PF) 4 mg injection (ZOFRAN) 4 mg INTRAVENOUS q 6 H PRN prochlorperazine 10 mg injection (COMPAZINE) 10 mg INTRAVENOUS q 6 H PRN INV INSULIN GLARGINE 26 Units INJECTION (LONG-ACTING) (TOUJEO) (IRB 17-758) 26 Units SUBCUTANEOUS DAILY wDINNER INV INSULIN GLULISINE INJECTION (RAPID-ACTING) (APIDRA) (IRB 17-758) SUBCUTANEOUS AT BEDTIME INV INSULIN GLULISINE INJECTION (RAPID-ACTING) (APIDRA) (IRB 17-758) SUBCUTANEOUS w MEALS lidocaine 5 % 1 Patch (LIDODERM) 1 Patch TRANSDERMAL DAILY lidocaine patch - REMOVE OTHER AT BEDTIME lidocaine - VERIFY PATCH OTHER q 8 H nicotine 21 mg/24 hr 1 Patch (NICODERM) 1 Patch TRANSDERMAL DAILY nicotine -- REMOVE patch OTHER DAILY nicotine - verify patch OTHER q 8 H [MAR Hold due to Transfer] lactated ringers infusion 75 mL/hr INTRAVENOUS CONTINUOUS albuterol HFA 90 mcg/actuation 2 Puff (PROVENTIL HFA, VENTOLIN HFA) 2 Puff INHALATION q 6 H PRN cyclobenzaprine 10 mg tab(s) (FLEXERIL) 10 mg ORAL TID PRN docusate sodium 100 mg cap(s) (COLACE) 100 mg ORAL BID [address] 40 mg tab(s) (PROTONIX) 40 mg ORAL DAILY (6 AM) dextrose 40 % 15 g 15 g ORAL PRN glucagon 1 mg injection (GLUCAGEN) 1 mg INTRAMUSCULAR PRN dextrose 50% in water 25 mL syringe 12.5 g INTRAVENOUS PRN magnesium hydroxide 400 mg/5 mL 30 mL (MOM) 30 mL ORAL q 6 H PRN melatonin 3 mg tab(s) 3 mg ORAL DAILY (8 PM) diphenhydrAMINE 25-50 mg injection (BENADRYL) 25-50 mg INTRAVENOUS q 6 H PRN aluminum-magnesium hydroxide-simethicone 200-200-20 mg/5 mL 30 mL (MAALOX,MYLANTA,MAG-AL PLUS) 30 mL ORAL q 6 H PRN phenol 1 [place] (CHLORASEPTIC) 1 [place] MUCOUS MEMBRANE (TOPICAL MOUTH AND THROAT) q 2 H PRN bupivacaine epidural 0.1% in NaCl 0.9% 300 mL EPIDURAL CONTINUOUS mometasone 220 mcg (14 doses) 1 Puff inhaler (ASMANEX) 1 Puff INHALATION DAILY Imp/Plan: 37 year old female POD# 6 s/p open left partial nephrectomy ? - Diet - carb controlled diet - Activity - out of bed, PT consult - Drains - serrano out, strict I/Os - DVT prophylaxis - PAS Stockings on and Pharmacologic DVT prophylaxis contraindicated due to bleeding risk - Antibiotics - ancef perioperative - Secondary Dx and Complications - - acute blood loss anemia - post operative, suspected fluid shifts as well, - Acute anemia, 1U PRBCs on 12/14 - Appropriate response to 1u PRBC, Hb 7.9 >> 9.1 g/dl - shortness of breath, secondary to asthma, atalectasis, effusions - continue pulmonary hygiene, wean O2, RT therapy, wean O2 ?- T2DM: ISS and accuchecks - appreciate endo input ?- morbid obesity BMI 55: encourage mobility, PT consult ?- smoker active: smoking cessation ?- asthma: inhaler (asmanex) PRN, resp therapy consult ?- left renal mass, suspected malignancy, final pathology pending ?- 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 Brian Conner MD, MSc PGY-4, Urology pgr [phone] please page [phone] after 6pm and on weekends December 15, 2017 6:56 AM As above, doing better, was OOB much yesterday per her report Af, VSS Good UO Ox sat ok on 1-2 L, but was 87% on RA, will do desat study today ABd soft, NT Incsion fine Labs all fine, Hg 9.1 Creatinine (mg/dL) Date Value 12/15/2017 0.70 ] Prog well, desat study today, probably DC today, but need to assess for need for SNF or home nursing? Heathre Torres MD ADDENDUM Patient failed desaturation study, see Desat study in RT tab Patient has chronic asthma and hypoxia Recommendation per RT to continue 2L NC during exertion and sleep. Case Management updated on plan. Lawson Conner MD, MSc PGY-4, Urology pgr [phone] please page [phone] after 6pm and on weekends December 15, 2017 4:48 PM CBC AND DIFFERENTIAL Collected: 12/15/2017 Status: F Source: STEGER 12:11 AM [facility] REPOSITORY TYPE CODE TESTS RESULT OUT OF REFERENCE UNITS RANGE LAB WBC 3.70-11.00 k/uL WBC 7.44 LAB RBC 3.90-5.20 m/uL Low RBC 3.30 LAB HGB 11.5-15.5 g/dL Low Hemoglobin 9.1 LAB HCT 36.0-46.0 % Low Hematocrit 27.9 LAB MCV 80.0-100.0 fL MCV 84.5 LAB MCH 26.0-34.0 pG MCH 27.6 LAB MCHC 30.5-36.0 g/dL MCHC 32.6 LAB RDWCV 11.5-15.0 % RDW-CV 14.2 LAB PLTCT 150-400 k/uL Platelet Count 242 LAB MPV 9.0-12.7 fL MPV 9.6 LAB ANEUT % Neut% 75.0 LAB AANEUT 1.45-7.50 k/uL Abs Neut 5.56 LAB ALYMP % Lymph% 13.8 LAB AALYMP 1.00-4.00 k/uL Abs Lymph 1.03 LAB AMONO % Martin% 7.5 LAB AAMONO <0.87 k/uL Abs Martin 0.56 LAB AEOS % Eosin% 3.4 LAB AAEOS <0.46 k/uL Abs Eosin 0.25 LAB ABASO % Baso% 0.3 LAB AABASO <0.11 k/uL Abs Baso <0.03 LAB AUNRBC 0 /100 WBC NRBCs 0.0 LAB ABNRBC <0.01 k/uL Absolute nRBC <0.01 LAB DTYP DTYPE Auto Diff Performed By: #### CBCDIF, BMP #### [email or web address] [address] [id number] BASIC METABOLIC PANL Collected: 12/15/2017 Status: F Source: STEGER 12:11 AM [facility] REPOSITORY TYPE CODE TESTS RESULT OUT OF REFERENCE UNITS RANGE LAB GLU 74-99 mg/dL High Glucose 168 Result Comment: The [place] [employer] (ADA) provides guidance for cutoff values for fasting glucose and random glucose. The ADA defines fasting as no caloric intake for at least 8 hours. Fas ting plasma glucose results between 100 to 125 mg/dL indicate increased risk for diabetes (prediabetes). Fasting plasma glucose results greater than or equal to 126 mg/dL meet the criteria for diagnosis of diabetes. In the absence of unequivocal hyperglycemia, results should be confirmed by repeat testing. In a patient with classic symptoms of hyperglycemia or hyperglycemic crisis, random plasma glucose results greater than or equal to 200 mg/dL meet the criteria for diagnosis of diabetes. Reference: Standards of Medical Care in Diabetes 2016, [place] [employer]. Diabetes Care. 2016.39(Suppl 1). LAB BUN 7-21 mg/dL BUN 10 LAB CRET 0.58-0.96 mg/dL Creatinine 0.70 LAB NA 136-144 mmol/L Sodium 136 LAB K 3.7-5.1 mmol/L Potassium 3.8 LAB CL 97-105 mmol/L Chloride 102 LAB CO2 22-30 mmol/L CO2 25 LAB AGAP 9-18 mmol/L Anion Gap 9 LAB CA 8.5-10.2 mg/dL Calcium, Low Total 8.0 LAB GFRAA eGFR- Amer. >60 LAB GFRNAA . eGFR-All Other Races >60 Result Comment: eGFR (Estimated GFR) Units of measure: mL/min/1.73 meters squared eGFR is derived from the reexpressed MDRD Study equation using the following parameters: serum creatinine, age, gender and race. The creatinine assay has been calibrated to be traceable to IDMS. An eGFR <60 mL/min/1.73m2 for >3 months is consistent with chronic kidney disease. Refer to KDOQI guidelines for clinical interpretation. In patients with unstable renal function, e.g. those with acute kidney injury, the eGFR may not accurately reflect actual GFR. Performed By: #### CBCDIF, URIAH #### [email or web address] [address] [place], [place] [address] PROGRESS Observed: 12/14/2017 Status: COMPLETED Source: STEGER 1:34 PM [facility] REPOSITORY HNO ID: [id number] Author: Matilde Parrish MD Service: Anesthesiology Author Type: Resident Type: Progress Notes Filed: 12/14/2017 3:36 PM Note Text: Attestation signed by Walter Mina at 12/16/2017 7:37 AM I have seen and examined the patient. I have personally reviewed the note and participated in the campbell parts of the patient care.Plan is to D/C the epidural catheter and add neurontin to enhance pain management. Walter Mina [id number] APS EPIDURAL CATHETER PROGRESS NOTE SERVICE DATE: 12/14/2017 SERVICE TIME: 1:34 PM PRIMARY SERVICE: Urology Subjective INTERVAL HPI: Tess Hall is a 37 year old female who is POD #5 S/P open left partial nephrectomy. Epidural on hold since 12/14/17 @ 0800. Patient also has an IV JOINTER MACHINE: No IV Line Appears Intact: Yes Pain at Surgical Site: Yes, left sided abdomen Condition of Surgical Site: c/d/i Other Locations of Pain: No Pain Score at Rest: 5 Pain Score with Movement (cough, deep breathe, ambulation, etc): 7 Functional Status: Can cough AND deep breath adequately. Character: aching Duration: consistent Radiation: No Relieved: Yes - IV Pain medications, PO Pain medications and Rest Patient Satisfied with Pain Control: No Overnight Events: None Overnight Pain Interventions: No Diet: Soft Objective ALLERGIES Allergen Reactions - Clindamycin Hives, Itching - Tylenol [Acetaminop* Hives, GI Upset 12/12: pt did not recall history of hives to pain mgmt, only minor GI upset Patient is Intubated and Sedated: No. Numbness?: No Weakness?: No Nausea?: No Vomitting?: No Pruritis?: No Back pain?: No Headache?: No Sedation?: No Confusion/Delirium?: No Other: none Epidural Location: Thoracic Epidural Catheter Placed: Day of surgery MEDICATIONS: I have interrogated the JOINTER MACHINE pump(s) for the correct settings and solution: Yes. EPIDURAL MEDICATIONS AND JOINTER MACHINE SETTINGS: Other: on hold. Current hospital medications: gabapentin 300 mg cap(s) (NEURONTIN) 300 mg ORAL q 8 H potassium chloride ER 40 mEq tab(s) (K-DUR, KLOR-CON) 40 mEq ORAL BID HYDROmorphone 0.2-0.4 mg in NaCl 0.9% (DILAUDID) 0.2-0.4 mg INTRAVENOUS q 3 H PRN INV INSULIN GLULISINE 5 Units INJECTION (RAPID-ACTING) (APIDRA) (IRB 17-758) 5 Units SUBCUTANEOUS w MEALS oxyCODONE ER 20 mg tab(s) (OxyCONTIN) 20 mg ORAL q 12 H acetaminophen 1,000 mg tab(s) (TYLENOL) 1,000 mg ORAL q 6 H oxyCODONE IR 10-15 mg tab(s) (ROXICODONE) 10-15 mg ORAL q 4 H PRN ondansetron (PF) 4 mg injection (ZOFRAN) 4 mg INTRAVENOUS q 6 H PRN prochlorperazine 10 mg injection (COMPAZINE) 10 mg INTRAVENOUS q 6 H PRN INV INSULIN GLARGINE 26 Units INJECTION (LONG-ACTING) (TOUJEO) (IRB 17-758) 26 Units SUBCUTANEOUS DAILY wDINNER INV INSULIN GLULISINE INJECTION (RAPID-ACTING) (APIDRA) (IRB 17-758) SUBCUTANEOUS AT BEDTIME INV INSULIN GLULISINE INJECTION (RAPID-ACTING) (APIDRA) (IRB 17-758) SUBCUTANEOUS w MEALS lidocaine 5 % 1 Patch (LIDODERM) 1 Patch TRANSDERMAL DAILY lidocaine patch - REMOVE OTHER AT BEDTIME lidocaine - VERIFY PATCH OTHER q 8 H nicotine 21 mg/24 hr 1 Patch (NICODERM) 1 Patch TRANSDERMAL DAILY nicotine -- REMOVE patch OTHER DAILY nicotine - verify patch OTHER q 8 H [MAR Hold due to Transfer] lactated ringers infusion 75 mL/hr INTRAVENOUS CONTINUOUS albuterol HFA 90 mcg/actuation 2 Puff (PROVENTIL HFA, VENTOLIN HFA) 2 Puff INHALATION q 6 H PRN cyclobenzaprine 10 mg tab(s) (FLEXERIL) 10 mg ORAL TID PRN docusate sodium 100 mg cap(s) (COLACE) 100 mg ORAL BID pantoprazole DR 40 mg tab(s) (PROTONIX) 40 mg ORAL DAILY (6 AM) dextrose 40 % 15 g 15 g ORAL PRN glucagon 1 mg injection (GLUCAGEN) 1 mg INTRAMUSCULAR PRN dextrose 50% in water 25 mL syringe 12.5 g INTRAVENOUS PRN magnesium hydroxide 400 mg/5 mL 30 mL (MOM) 30 mL ORAL q 6 H PRN melatonin 3 mg tab(s) 3 mg ORAL DAILY (8 PM) diphenhydrAMINE 25-50 mg injection (BENADRYL) 25-50 mg INTRAVENOUS q 6 H PRN aluminum-magnesium hydroxide-simethicone 200-200-20 mg/5 mL 30 mL (MAALOX,MYLANTA,MAG-AL PLUS) 30 mL ORAL q 6 H PRN phenol 1 [place] (CHLORASEPTIC) 1 [place] MUCOUS MEMBRANE (TOPICAL MOUTH AND THROAT) q 2 H PRN bupivacaine epidural 0.1% in NaCl 0.9% 300 mL EPIDURAL CONTINUOUS mometasone 220 mcg (14 doses) 1 Puff inhaler (ASMANEX) 1 Puff INHALATION DAILY PHYSICAL EXAM: Patient Vitals for the past 4 hrs: BP Temp Temp src Pulse Resp SpO2 12/14/17 1130 125/81 36.6 ?C (97.9 ?F) Oral 98 16 92 % NEUROLOGICAL: Sensory Exam: Surgical Limb: intact Other Limb: intact Motor Exam: Surgical Limb: intact Other Limb: intact AFFECT: Awake, alert and oriented. GENERAL: Appears comfortable and in good spirits. RESPIRATORY EXAM: Respirations: Breathing appears normal Thoracostomy Tube: No GASTROINTESTINAL EXAM: Bowel Sounds: Present LAB RESULTS: Diagnostic tests reviewed for today's visit: Most recent labs and imaging results. APTT 24.0 12/01/2017 PT Sec 9.3 12/01/2017 PT INR <0.9 12/01/2017 Hemoglobin 7.9 12/14/2017 Hematocrit 24.2 12/14/2017 Platelet Count 207 12/14/2017 Creatinine 0.65 12/14/2017 BUN 9 12/14/2017 Assessment/Plan Patient is being seen for pain as described in HPI above. Epidural placed on hold this morning. Gabapentin 300mg TID added for incisional pain, primary would like to hold off on toradol. Assessment: Pt satisfied with pain control. Epidural removed 12/14/17, tip intact, no apparent complications. Plan of Care: Continue adjunctive therapy as needed. Adjust analgesic regimen: add gabapentin 300mg TID Discussed the patient's progress and plan of care with Dr. Mina.. APMS will sign off at this time. Thank you for the consult. SIGNATURE: Matilde Parrish MD PATIENT NAME: Tess Hall DATE: December 14, 2017 TIME: 1:34 PM PAGER/CONTACT #: [phone] TYPE AND SCREEN Collected: 12/14/2017 Status: F Source: STEGER 12:03 PM [facility] REPOSITORY TYPE CODE TESTS RESULT OUT OF REFERENCE UNITS RANGE LAB %ABR O ABO/RH(D) NEGATIVE LAB % Antibody NEG Screen Performed By: #### TSCR #### [facility] [address] [place] [address] CONSULT PROG Observed: 12/14/2017 Status: COMPLETED Source: STEGER 9:08 AM [facility] REPOSITORY HNO ID: [id number] Author: Zeb Ramírez Service: Endocrinology Author Type: Physician Type: Consult Progress Note Filed: 12/14/2017 9:50 PM Note Text: DIABETES CARE TEAM NOTE SERVICE DATE: 12/14/2017 SERVICE TIME: 9:08 AM Subjective From original consult note on 12/10/2017 HPI: Ms. Tess Hall is a 37 year old female with a 5 year history of Diabetes Mellitus Type 2 hyperglycemia who was admitted on 12/09/2017, s/p open left partial nephrectomy 12/09/2017 Past medical history significant for HTN, HLD, left renal mass, and asthma. Patient does not exercise. Last HbA1c was 12.7%on 12/26/2015. She has a family history of diabetes in her mother. She is followed by PCP for her diabetes. DIABETIC COMPLICATIONS: None Pre-Admission DM Regimen: Preadmission oral agents: Exedrin4 (Bydureon) 2mg reconstituted pen (once weekly on Fridays) Glipizide 20 mg BID Metformin 1000 mg BID Preadmission insulin regimen:basalglar 30-40 units pm Self Monitoring Blood Glucose: Type of Monitor: Freestyle Frequency of Monitorin-3 times a day BG Values: 80-90-120mg/dL Hypoglycemia: Yes, Frequency: once times a week Time of Day in early am wakes up with low usually happen when takes her Bydureon and lantus Symptoms: Shakiness and Sweating Feel symptoms when BS is 40-<70 mg/dL INTERVAL HPI: No acute events overnight PERTINENT ROS: Constitutional: Feels well, no complaints Appetite:Intact GI:No nausea, no vomitting, no diarrhea, no constipation Objective PHYSICAL EXAM: BP 125/80 Pulse 98 Temp 36.3 ?C (97.3 ?F) (Oral) Resp 20 LMP 11/20/2017 SpO2 93% There is no height or weight on file to calculate BMI. General Appearance: Appears well, A+O x 3 and In no apparent distress Affect: Pleasant and cooperative Eyes: Sclerae non-icteric Abdomen: Bowel sounds x 4 Skin/Lipohypertrophy: no cyanosis noted Edema: none noted Laboratory Results: Hemoglobin (g/dL) Date Value 12/14/2017 7.9 Hematocrit (%) Date Value 12/14/2017 24.2 WBC (k/uL) Date Value 12/14/2017 6.82 Platelet Count (k/uL) Date Value 12/14/2017 207 Potassium (mmol/L) Date Value 12/14/2017 3.2 Sodium (mmol/L) Date Value 12/14/2017 136 Creatinine (mg/dL) Date Value 12/14/2017 0.65 BUN (mg/dL) Date Value 12/14/2017 9 Glucose (mg/dL) Date Value 12/14/2017 119 PT INR (no units) Date Value 12/01/2017 <0.9 Lipids: No results found for: CHOL, HDL, LDL, TG Albumin (g/dL) Date Value 12/01/2017 3.5 (L) Bilirubin, Total (mg/dL) Date Value 12/01/2017 0.2 Alkaline Phosphatase (U/L) Date Value 12/01/2017 99 AST (U/L) Date Value 12/01/2017 12 (L) ALT (U/L) Date Value 12/01/2017 12 Protein, Total (g/dL) Date Value 12/01/2017 5.5 (L) No results found for: LVEF Hemoglobin A1C Date Value 12/10/2017 7.2 % 12/26/2015 12.7 % 01/29/2015 11.5 Diabetes Management in Hospital Hospital BG values or ranges: Date AM LUNCH DINNER HS 3AM 12/09/2017 181 137 186(H1)215 237(H2) 181 12/10/2017 172(h1) 167(H1) Lantus 10 u 164(1H) 156(1H) 12/11 154(1H) 172(1H) 165(2H) Lantus 14 u 176 12/12 182(4A) 185(4A) 208(4A) Toujeo 26 u 142 12/13 131 161(3H) 176(3A+5A) Toujeo 26 u 169 155 12/14 119(5A) 133(5A) 175(3A+5A) Toujeo 26 u 185 Other Pertinent Medications: Continuous Infusion NS at 150ml/hour / Epidural /JOINTER MACHINE pain pump Steroids: none Diet: GI soft-fiber controlled/CHO controlled Tube Feeding: No Supplements: none Impression/Recommendations Patient with uncontrolled Diabetes Mellitus Type 2 hyperglycemia s/p open left partial nephrectomy 12/09/2017 whom we have been consulted for glycemic control. Patient currently participating study, insulin doses are adjusted by Dr. Tere Ramírez. RECOMMENDATIONS: ? Continue Basal Insulin: Toujeo 26 units with dinner ? Continue Prandial Insulin: Apidra 5 units AC TID ? Continue Supplemental Sliding Scale: Apidra custom scales ACHS ? Accuchecks: ACHS ? Recommend As per Unit Dietitian ? Check HbA1C to see if there was any preceding hyperglycemia. ? Consult CDE regarding: DM Education including likely none TBD does insulin and oral at home DM DISCHARGE PLAN: Freestyle Lite test strips (epic code: 27088) DISP: 1 box (100/box) w/ refill Freestyle lancets (epic code: 66425) DISP: 1 box (100/box) w/ refill Patient denies needing script for insulin, pen needles, Bydreon ? Likely on home oral agents + basal as labs allow ? Check blood sugars Three times a Day ? Diet: As per Unit Dietitian ? Exercise as prescribed by primary team ? Follow up with hard candy batch mixer and qc analyst as recommended. ? 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 ? Diabetes Care Team Hospital Discharge Help Line: [phone] SIGNATURE: Melanie Blancas APRN.FREIGHT TRAFFIC CONSULTANT PATIENT NAME: Tess Hall DATE: 12/14/2017 TIME: 9:11 AM PAGER/CONTACT #: [phone] STAFF ADDENDUM: ? Patient enrolled in study IRB 17-758 A Randomized Controlled Trial Comparing Glargine U300 and Glargine U100 for the Inpatient and Post-Hospital Discharge Management of Medicine and Surgery Patients with Type 2 Diabetes ? I reviewed MAR and Diabetic flowsheet including meals taken ? ASSESSMENT/PLAN Type 2 diabetes ? Fingerstick POC glucose check q ac and hs ? Glargine U 300 (Toujeo), 26 units at 6pm Apidra inc to 7 units with meals,hold if NPO, half dose if poor appetite Apidra usual scale (or study sliding scale #2) during mealtime Apidra usual scale ?(or study sliding scale #2) at bedtime ? Hypoglycemia protocol in place ? Already seen by our certified breastfeeding educator ? For discharge, does not qualify for outpatient arm of the study. Endocrine consult service to give recommendations May see us in clinic for follow-up if they wish ? May page me marcel for questions. ? Damon Ramírez MD, MPH December 14, 2017 9:50 PM Pager [phone] ? PROGRESS Observed: 12/14/2017 Status: COMPLETED Source: STEGER 8:22 AM [facility] REPOSITORY HNO ID: [id number] Author: Tono (Mehdi) MD George Service: Urology Author Type: Resident Type: Progress Notes Filed: 12/14/2017 11:02 AM Note Text: UROLOGY SERVICE PROGRESS NOTE PATIENT INFO: Tess Hall 37 year old DATE: 12/14/2017 S: Doing well. Breathing continues to improve, down to needing only 1L O2. Pain improving but still complains of severe incisional pain. No nausea or vomiting. Passing gas and tolerating diet. PAST MEDICAL HISTORY Diagnosis Date - Depression - DM2 (diabetes mellitus, type 2) (HCC) - HLD (hyperlipidemia) - Hx of acute pyelonephritis - Morbid obesity (HCC) - Reactive airway disease - Renal mass - Smoker Exam: BP 125/80 Pulse 98 Temp 36.3 ?C (97.3 ?F) (Oral) Resp 20 LMP 11/20/2017 SpO2 93% Intake/Output Summary (Last 24 hours) at 12/14/17 0826 Last data filed at 12/14/17 0712 Gross per 24 hour Intake 610 ml Output 1085 ml Net -475 ml UO: 1085 cc (some voids not saved) Drains: 10cc DAVID General: lying in bed in no acute distress Lungs: even unlabored respirations Abdomen: obese, soft, approp tender w/o sophie/guarding, left flank inc clean dry and in tact Extremities: no LE edema, SCDs off - patient says they were just removed, encouraged replacing them after she gets out of bed Labs: Recent Labs 12/14/17 0126 12/13/17 0113 12/13/17 0015 12/12/17 0656 WBC 6.82 9.35 10.27 < > -- HB 7.9* 8.3* 9.3* < > -- HCT 24.2* 24.7* 30.2* < > -- PLT 207 194 112* < > -- NA 136 136 -- -- 134* K 3.2* 3.1* -- -- 3.8 CHLOR 101 100 -- -- 100 CO2 24 22 -- -- 23 BUN 9 7 -- -- 7 CREAT 0.65 0.61 -- -- 0.62 GLUC 119* 143* -- -- 147* < > = values in this interval not displayed. Current hospital medications: potassium chloride ER 40 mEq tab(s) (K-DUR, KLOR-CON) 40 mEq ORAL BID HYDROmorphone 0.2-0.4 mg in NaCl 0.9% (DILAUDID) 0.2-0.4 mg INTRAVENOUS q 3 H PRN INV INSULIN GLULISINE 5 Units INJECTION (RAPID-ACTING) (APIDRA) (IRB 17-758) 5 Units SUBCUTANEOUS w MEALS oxyCODONE ER 20 mg tab(s) (OxyCONTIN) 20 mg ORAL q 12 H acetaminophen 1,000 mg tab(s) (TYLENOL) 1,000 mg ORAL q 6 H oxyCODONE IR 10-15 mg tab(s) (ROXICODONE) 10-15 mg ORAL q 4 H PRN ondansetron (PF) 4 mg injection (ZOFRAN) 4 mg INTRAVENOUS q 6 H PRN prochlorperazine 10 mg injection (COMPAZINE) 10 mg INTRAVENOUS q 6 H PRN INV INSULIN GLARGINE 26 Units INJECTION (LONG-ACTING) (TOUJEO) (IRB 17-758) 26 Units SUBCUTANEOUS DAILY wDINNER INV INSULIN GLULISINE INJECTION (RAPID-ACTING) (APIDRA) (IRB 17-758) SUBCUTANEOUS AT BEDTIME INV INSULIN GLULISINE INJECTION (RAPID-ACTING) (APIDRA) (IRB 17-758) SUBCUTANEOUS w MEALS lidocaine 5 % 1 Patch (LIDODERM) 1 Patch TRANSDERMAL DAILY lidocaine patch - REMOVE OTHER AT BEDTIME lidocaine - VERIFY PATCH OTHER q 8 H nicotine 21 mg/24 hr 1 Patch (NICODERM) 1 Patch TRANSDERMAL DAILY nicotine -- REMOVE patch OTHER DAILY nicotine - verify patch OTHER q 8 H [MAR Hold due to Transfer] lactated ringers infusion 75 mL/hr INTRAVENOUS CONTINUOUS albuterol HFA 90 mcg/actuation 2 Puff (PROVENTIL HFA, VENTOLIN HFA) 2 Puff INHALATION q 6 H PRN cyclobenzaprine 10 mg tab(s) (FLEXERIL) 10 mg ORAL TID PRN docusate sodium 100 mg cap(s) (COLACE) 100 mg ORAL BID pantoprazole [address] 40 mg tab(s) (PROTONIX) 40 mg ORAL DAILY (6 AM) dextrose 40 % 15 g 15 g ORAL PRN glucagon 1 mg injection (GLUCAGEN) 1 mg INTRAMUSCULAR PRN dextrose 50% in water 25 mL syringe 12.5 g INTRAVENOUS PRN magnesium hydroxide 400 mg/5 mL 30 mL (MOM) 30 mL ORAL q 6 H PRN melatonin 3 mg tab(s) 3 mg ORAL DAILY (8 PM) diphenhydrAMINE 25-50 mg injection (BENADRYL) 25-50 mg INTRAVENOUS q 6 H PRN aluminum-magnesium hydroxide-simethicone 200-200-20 mg/5 mL 30 mL (MAALOX,MYLANTA,MAG-AL PLUS) 30 mL ORAL q 6 H PRN phenol 1 [place] (CHLORASEPTIC) 1 [place] MUCOUS MEMBRANE (TOPICAL MOUTH AND THROAT) q 2 H PRN bupivacaine epidural 0.1% in NaCl 0.9% 300 mL EPIDURAL CONTINUOUS mometasone 220 mcg (14 doses) 1 Puff inhaler (ASMANEX) 1 Puff INHALATION DAILY Imp/Plan: 37 year old female POD# 5 s/p open left partial nephrectomy ? - Diet - Gi soft diet (carb controlled) - Activity - out of bed, PT consult - Drains - serrano out, strict I/Os - DVT prophylaxis - PAS Stockings on and Pharmacologic DVT prophylaxis contraindicated due to bleeding risk - Antibiotics - ancef perioperative - Secondary Dx and Complications - - acute blood loss anemia - post operative, suspected fluid shifts as well, Hgb 7.9, will give 1U PRBCs and repeat Hgb in AM - shortness of breath, secondary to asthma, atalectasis, effusions - continue pulmonary hygiene, wean O2, RT therapy, wean O2 ?- T2DM: ISS and accuchecks - appreciate endo input ?- morbid obesity BMI 55: encourage mobility, PT consult ?- smoker active: smoking cessation ?- asthma: inhaler (asmanex) PRN, resp therapy consult ?- left renal mass, suspected malignancy, final pathology pending ?- pain: epidural and fentanyl JOINTER MACHINE - APMS input appreciated ?- GERD: PPI - Discharge planning - pending course Discussed with staff, Dr. Brian Whitehead MD December 14, 2017 8:22 AM Pager: [phone] CHIEF ADDENDUM Pt out of bed a little yesterday, still not ambulating in hallways. Notes continued incisional pain. Voiding well. Tolerating GI soft diet. W 6.8 hg 7.9 cr 0.65 K 3.2 Transfuse 1u prBCs PT consult. Ambulate Dc marketing technology coordinator, transition to PO meds Replete K Hopefully home in 1-2 days Tono Vazquez MD, PhD Urology Chief Resident, PGY-6 Please page resident pager noted above for questions or concerns. Urology Consult/On-Call Pager: [phone] December 14, 2017 11:02 AM CBC AND DIFFERENTIAL Collected: 12/14/2017 Status: F Source: [place] 1:26 AM [facility] REPOSITORY TYPE CODE TESTS RESULT OUT OF REFERENCE UNITS RANGE LAB WBC 3.70-11.00 k/uL WBC 6.82 LAB RBC 3.90-5.20 m/uL Low RBC 2.87 LAB HGB 11.5-15.5 g/dL Low Hemoglobin 7.9 LAB HCT 36.0-46.0 % Low Hematocrit 24.2 LAB MCV 80.0-100.0 fL MCV 84.3 LAB MCH 26.0-34.0 pG MCH 27.5 LAB MCHC 30.5-36.0 g/dL MCHC 32.6 LAB RDWCV 11.5-15.0 % RDW-CV 14.0 LAB PLTCT 150-400 k/uL Platelet Count 207 LAB MPV 9.0-12.7 fL MPV 9.3 LAB ANEUT % Neut% 69.5 LAB AANEUT 1.45-7.50 k/uL Abs Neut 4.74 LAB ALYMP % Lymph% 18.2 LAB AALYMP 1.00-4.00 k/uL Abs Lymph 1.24 LAB AMONO % Martin% 8.2 LAB AAMONO <0.87 k/uL Abs Martin 0.56 LAB AEOS % Eosin% 3.7 LAB AAEOS <0.46 k/uL Abs Eosin 0.25 LAB ABASO % Baso% 0.4 LAB AABASO <0.11 k/uL Abs Baso 0.03 LAB AUNRBC 0 /100 WBC NRBCs 0.0 LAB ABNRBC <0.01 k/uL Absolute nRBC <0.01 LAB DTYP DTYPE Auto Diff Performed By: #### CBCDIF, BMP #### [facility] [address] [place], [place] [address] BASIC METABOLIC PANL Collected: 12/14/2017 Status: F Source: STE[place] 1:26 AM [facility] REPOSITORY TYPE CODE TESTS RESULT OUT OF REFERENCE UNITS RANGE LAB GLU 74-99 mg/dL High Glucose 119 Result Comment: The [place] [employer] (ADA) provides guidance for cutoff values for fasting glucose and random glucose. The ADA defines fasting as no caloric intake for at least 8 hours. Fas ting plasma glucose results between 100 to 125 mg/dL indicate increased risk for diabetes (prediabetes). Fasting plasma glucose results greater than or equal to 126 mg/dL meet the criteria for diagnosis of diabetes. In the absence of unequivocal hyperglycemia, results should be confirmed by repeat testing. In a patient with classic symptoms of hyperglycemia or hyperglycemic crisis, random plasma glucose results greater than or equal to 200 mg/dL meet the criteria for diagnosis of diabetes. Reference: Standards of Medical Care in Diabetes 2016, [place] [employer]. Diabetes Care. 2016.39(Suppl 1). LAB BUN 7-21 mg/dL BUN 9 LAB CRET 0.58-0.96 mg/dL Creatinine 0.65 LAB NA 136-144 mmol/L Sodium 136 LAB K 3.7-5.1 mmol/L Potassium Low 3.2 LAB CL 97-105 mmol/L Chloride 101 LAB CO2 22-30 mmol/L CO2 24 LAB AGAP 9-18 mmol/L Anion Gap 11 LAB CA 8.5-10.2 mg/dL Calcium, Low Total 8.0 LAB GFRAA eGFR- Amer. >60 LAB GFRNAA . eGFR-All Other Races >60 Result Comment: eGFR (Estimated GFR) Units of measure: mL/min/1.73 meters squared eGFR is derived from the reexpressed MDRD Study equation using the following parameters: serum creatinine, age, gender and race. The creatinine assay has been calibrated to be traceable to IDMS. An eGFR <60 mL/min/1.73m2 for >3 months is consistent with chronic kidney disease. Refer to KDOQI guidelines for clinical interpretation. In patients with unstable renal function, e.g. those with acute kidney injury, the eGFR may not accurately reflect actual GFR. Performed By: #### CBCDIF, BMP #### [facility] [address] [place], [place] [address] CONSULT PROG Observed: 12/13/2017 Status: COMPLETED Source: STE[place] 10:00 AM [facility] [place] REPOSITORY HNO ID: [id number] Author: Zeb Ramírez Service: Endocrinology Author Type: Physician Type: Consult Progress Note Filed: 12/14/2017 9:53 PM Note Text: DIABETES CARE TEAM NOTE SERVICE DATE: 12/13/2017 SERVICE TIME: 10:00 AM Subjective From original consult note on 12/10/2017 HPI: Ms. Tess Hall is a 37 year old female with a 5 year history of Diabetes Mellitus Type 2 hyperglycemia who was admitted on 12/09/2017, s/p open left partial nephrectomy 12/09/2017 Past medical history significant for HTN, HLD, left renal mass, and asthma. Patient does not exercise. Last HbA1c was 12.7%on 12/26/2015. She has a family history of diabetes in her mother. She is followed by PCP for her diabetes. DIABETIC COMPLICATIONS: None Pre-Admission DM Regimen: Preadmission oral agents: Exedrin4 (Bydureon) 2mg reconstituted pen (once weekly on Fridays) Glipizide 20 mg BID Metformin 1000 mg BID Preadmission insulin regimen:basalglar 30-40 units pm Self Monitoring Blood Glucose: Type of Monitor: Freestyle Frequency of Monitorin-3 times a day BG Values: 80-90-120mg/dL Hypoglycemia: Yes, Frequency: once times a week Time of Day in early am wakes up with low usually happen when takes her Bydureon and lantus Symptoms: Shakiness and Sweating Feel symptoms when BS is 40-<70 mg/dL INTERVAL HPI: No acute events overnight PERTINENT ROS: Constitutional: Feels well, no complaints Appetite:Intact GI:No nausea, no vomitting, no diarrhea, no constipation Objective PHYSICAL EXAM: BP 109/64 Pulse 95 Temp 37.1 ?C (98.8 ?F) (Oral) Resp 18 LMP 11/20/2017 SpO2 97% There is no height or weight on file to calculate BMI. General Appearance: Appears well, A+O x 3 and In no apparent distress Affect: Pleasant and cooperative Eyes: Sclerae non-icteric Abdomen: Bowel sounds x 4 Skin/Lipohypertrophy: no cyanosis noted Respirations easy and unlabored Laboratory Results: Hemoglobin (g/dL) Date Value 12/13/2017 8.3 Hematocrit (%) Date Value 12/13/2017 24.7 WBC (k/uL) Date Value 12/13/2017 9.35 Platelet Count (k/uL) Date Value 12/13/2017 194 Potassium (mmol/L) Date Value 12/13/2017 3.1 Sodium (mmol/L) Date Value 12/13/2017 136 Creatinine (mg/dL) Date Value 12/13/2017 0.61 BUN (mg/dL) Date Value 12/13/2017 7 Glucose (mg/dL) Date Value 12/13/2017 143 PT INR (no units) Date Value 12/01/2017 <0.9 Lipids: No results found for: CHOL, HDL, LDL, TG Albumin (g/dL) Date Value 12/01/2017 3.5 (L) Bilirubin, Total (mg/dL) Date Value 12/01/2017 0.2 Alkaline Phosphatase (U/L) Date Value 12/01/2017 99 AST (U/L) Date Value 12/01/2017 12 (L) ALT (U/L) Date Value 12/01/2017 12 Protein, Total (g/dL) Date Value 12/01/2017 5.5 (L) No results found for: LVEF Hemoglobin A1C Date Value 12/10/2017 7.2 % 12/26/2015 12.7 % 01/29/2015 11.5 Diabetes Management in Hospital Hospital BG values or ranges: Date AM LUNCH DINNER HS 3AM 12/09/2017 181 137 186(H1)215 237(H2) 181 12/10/2017 172(h1) 167(H1) Lantus 10 u 164(1H) 156(1H) 12/11 154(1H) 172(1H) 165(2H) Lantus 14 u 176 12/12 182(4A) 185(4A) 208(4A) Toujeo 26 u 142 12/13 131 161(3H) Other Pertinent Medications: Continuous Infusion NS at 150ml/hour / Epidural /JOINTER MACHINE pain pump Steroids: none Diet: GI soft-fiber controlled/CHO controlled Tube Feeding: No Supplements: none Impression/Recommendations Patient with uncontrolled Diabetes Mellitus Type 2 hyperglycemia s/p open left partial nephrectomy 12/09/2017 whom we have been consulted for glycemic control. Patient currently participating study, insulin doses are adjusted by Dr. Tere Ramírez. RECOMMENDATIONS: ? Continue Basal Insulin: Toujeo 26 units with dinner ? Hold Prandial Insulin: based on glucose trends ? Continue Supplemental Sliding Scale: Apidra custom scales ACHS ? Accuchecks: ACHS ? Recommend As per Unit Dietitian ? Check HbA1C to see if there was any preceding hyperglycemia. ? Consult CDE regarding: DM Education including likely none TBD does insulin and oral at home DM DISCHARGE PLAN: ? Likely on home oral agents + basal as labs allow ? Check blood sugars Three times a Day ? Diet: As per Unit Dietitian ? Exercise as prescribed by primary team ? Follow up with hard candy batch mixer and qc analyst as recommended. ? 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 ? Diabetes Care Team Hospital Discharge Help Line: [phone] SIGNATURE: Melanie Blancas APRN.FREIGHT TRAFFIC CONSULTANT PATIENT NAME: Tess Hall DATE: 12/13/2017 TIME: 10:02 AM PAGER/CONTACT #: [phone] STAFF ADDENDUM: Patient enrolled in study IRB 17-758 A Randomized Controlled Trial Comparing Glargine U300 and Glargine U100 for the Inpatient and Post-Hospital Discharge Management of Medicine and Surgery Patients with Type 2 Diabetes I spoke with nurse today. Patient eating meals I reviewed MAR and Diabetic flowsheet ASSESSMENT/PLAN Type 2 diabetes ? I communicated with nurse that I will start mealtime scheduled insulin since eating; hold if not eating ? Fingerstick POC glucose check q ac and hs ? Glargine U 300 (Toujeo), 26 units (see Addendum, meant to say q 6pm)Apidra 5 units with meals,hold if NPO, half dose if poor appetite Apidra usual scale (or study sliding scale #2) during mealtime Apidra usual scale (or study sliding scale #2) at bedtime ? Hypoglycemia protocol in place ? Already seen by our certified breastfeeding educator ? For discharge, does not qualify for outpatient arm of the study. Endocrine consult service to give recommendations May see us in clinic for follow-up if they wish ? May page me marcel for questions. ? Damon Ramírez MD, MPH December 13, 2017 4:49 PM Pager [phone] ADDENDUM See strike out in Plan - Glargine U300 q 6pm Zeb Ramírez MD, MPH December 14, 2017 9:53 PM PROGRESS Observed: 12/13/2017 Status: COMPLETED Source: STE[place] 8:12 AM [facility] [place] REPOSITORY HNO ID: [id number] Author: Tono Vazquez MD Service: Urology Author Type: Resident Type: Progress Notes Filed: 12/13/2017 11:07 AM Note Text: UROLOGY SERVICE PROGRESS NOTE PATIENT INFO: Tess Hall 37 year old DATE: 12/12/2017 S: Doing well. Breathing is more comfortable, supplemental oxygen being weaned, down to 1 L this morning. Patient reports pain control still difficult but she was resting comfortably during this encounter. She is hungry and passing gas. Voiding fine, however says she could not save urine overnight because she did not have a raised toilet seat. That has been placed in the patient's room now and we discussed importance of saving urine. She was up out of bed multiple times yesterday to void, but with help. PAST MEDICAL HISTORY Diagnosis Date - Depression - DM2 (diabetes mellitus, type 2) (HCC) - HLD (hyperlipidemia) - Hx of acute pyelonephritis - Morbid obesity (HCC) - Reactive airway disease - Renal mass - Smoker Exam: BP 109/64 Pulse 95 Temp 37.1 ?C (98.8 ?F) (Oral) Resp 18 LMP 11/20/2017 SpO2 97% Intake/Output Summary (Last 24 hours) at 12/13/17 0813 Last data filed at 12/13/17 0647 Gross per 24 hour Intake 240 ml Output 536 ml Net -296 ml UO: 536 cc (some voids not saved) Drains: 75cc DAVID General: lying in bed in no acute distress Lungs: even unlabored respirations Abdomen: obese, soft, approp tender w/o sophie/guarding, left flank inc clean dry and in tact Genitourinary: deferred Extremities: no LE edema, SCDs on Labs: Recent Labs 12/13/17 0113 12/13/17 0015 12/12/17 1534 12/12/17 0656 12/11/17 0334 WBC 9.35 10.27 11.62* -- 13.09* HB 8.3* 9.3* 9.1* -- 10.0* HCT 24.7* 30.2* 27.5* -- 30.4* PLT 194 112* 190 -- 176 NA 136 -- -- 134* 134* K 3.1* -- -- 3.8 3.8 CHLOR 100 -- -- 100 100 CO2 22 -- -- 23 22 BUN 7 -- -- 7 14 CREAT 0.61 -- -- 0.62 0.69 GLUC 143* -- -- 147* 158* Current hospital medications: potassium chloride ER 40 mEq tab(s) (K-DUR, KLOR-CON) 40 mEq ORAL BID oxyCODONE ER 20 mg tab(s) (OxyCONTIN) 20 mg ORAL q 12 H acetaminophen 1,000 mg tab(s) (TYLENOL) 1,000 mg ORAL q 6 H fentaNYL 50 mcg/mL 50 mcg injection (SUBLIMAZE) 50 mcg INTRAVENOUS q 2 H PRN oxyCODONE IR 10-15 mg tab(s) (ROXICODONE) 10-15 mg ORAL q 4 H PRN ondansetron (PF) 4 mg injection (ZOFRAN) 4 mg INTRAVENOUS q 6 H PRN prochlorperazine 10 mg injection (COMPAZINE) 10 mg INTRAVENOUS q 6 H PRN INV INSULIN GLARGINE 26 Units INJECTION (LONG-ACTING) (TOUJEO) (IRB 17-758) 26 Units SUBCUTANEOUS DAILY wDINNER INV INSULIN GLULISINE INJECTION (RAPID-ACTING) (APIDRA) (IRB 17-758) SUBCUTANEOUS AT BEDTIME INV INSULIN GLULISINE INJECTION (RAPID-ACTING) (APIDRA) (IRB 17-758) SUBCUTANEOUS w MEALS lidocaine 5 % 1 Patch (LIDODERM) 1 Patch TRANSDERMAL DAILY lidocaine patch - REMOVE OTHER AT BEDTIME lidocaine - VERIFY PATCH OTHER q 8 H nicotine 21 mg/24 hr 1 Patch (NICODERM) 1 Patch TRANSDERMAL DAILY nicotine -- REMOVE patch OTHER DAILY nicotine - verify patch OTHER q 8 H [MAR Hold due to Transfer] lactated ringers infusion 75 mL/hr INTRAVENOUS CONTINUOUS albuterol HFA 90 mcg/actuation 2 Puff (PROVENTIL HFA, VENTOLIN HFA) 2 Puff INHALATION q 6 H PRN cyclobenzaprine 10 mg tab(s) (FLEXERIL) 10 mg ORAL TID PRN docusate sodium 100 mg cap(s) (COLACE) 100 mg OR[address] BID [address]op[address]ole [address] 40 mg tab(s) (PROTONIX) 40 mg ORAL DAILY (6 AM) dextrose 40 % 15 g 15 g ORAL PRN glucagon 1 mg injection (GLUCAGEN) 1 mg INTRAMUSCULAR PRN dextrose 50% in water 25 mL syringe 12.5 g INTRAVENOUS PRN magnesium hydroxide 400 mg/5 mL 30 mL (MOM) 30 mL ORAL q 6 H PRN melatonin 3 mg tab(s) 3 mg ORAL DAILY (8 PM) diphenhydrAMINE 25-50 mg injection (BENADRYL) 25-50 mg INTRAVENOUS q 6 H PRN aluminum-magnesium hydroxide-simethicone 200-200-20 mg/5 mL 30 mL (MAALOX,MYLANTA,MAG-AL PLUS) 30 mL ORAL q 6 H PRN phenol 1 [place] (CHLORASEPTIC) 1 [place] MUCOUS MEMBRANE (TOPICAL MOUTH AND THROAT) q 2 H PRN bupivacaine epidural 0.1% in NaCl 0.9% 300 mL EPIDURAL CONTINUOUS mometasone 220 mcg (14 doses) 1 Puff inhaler (ASMANEX) 1 Puff INHALATION DAILY Imp/Plan: 37 year old female POD# 4 s/p open left partial nephrectomy ? - Diet - Gi soft diet today (carb controlled) - Activity - out of bed, PT consult - Drains - serrano out, strict I/Os - DVT prophylaxis - PAS Stockings on and Pharmacologic DVT prophylaxis contraindicated due to bleeding risk - Antibiotics - ancef perioperative - Secondary Dx and Complications - - acute blood loss anemia - post operative, suspected fluid shifts as well, Hgb 8.3, will continue to monitor - shortness of breath, secondary to asthma, atalectasis, effusions - lasix 10 mg again today, continue pulmonary hygiene, wean O2, RT therapy ?- T2DM: ISS and accuchecks ?- morbid obesity BMI 55: encourage mobility, PT consult ?- smoker active: smoking cessation ?- asthma: inhaler (asmanex) PRN, resp therapy consult ?- left renal mass, suspected malignancy, final pathology pending ?- pain: epidural and fentanyl JOINTER MACHINE - APMS input appreciated ?- GERD: PPI - Discharge planning - pending course Discussed with staff, Dr. Brian Whitehead MD December 13, 2017 8:13 AM Pager: [phone] CHIEF RESIDENT ADDENDUM Doing relatively well. Pain control improving. Still very emotional/anxious but improving Incision cdi. Appropr tender WBC 9.35 Hg 8.3 Cr 0.61 Continue ambulation. PT consult. Voiding well, re-educated on importance of saving urine Appreciate endo recs Tono Vazquez MD CONSULT PROG Observed: 12/13/2017 Status: COMPLETED Source: [place] 3:10 AM [facility] REPOSITORY HNO ID: [id number] Author: Dariel Frazier Service: Anesthesiology Author Type: Resident Type: Consult Progress Note Filed: 12/13/2017 3:15 AM Note Text: Attestation signed by Jason Chung at 01/03/2018 10:57 PM I have reviewed the progress note obtained and documented by the resident on the APS team and I personally participated in the campbell component. I also editted the resident note and did necessary corrections. I have discussed the assessment and plan with the acute pain team, see above note for the details of the analgesic plan. In short, at the time of my exam, patient is comfortable, pain is well controlled will continue the current described regimen ( see the resident/fellow notes for details). Will apply multimodal strategy with non-opioid adjuvants . Titrate the dose to the desired effect (adequate analgesia and minimal suffering). Continue the epidural infusion at the same rate, as well as other adjuvant meds. No apparent major epidural complications . Will titrate the current analgesic regimen for acceptable pain level (tolerable pain with minimal side effects) Will reassess tomorrow for any necessary changes. Jason Chung M.D Acute Pain Management Staff Pager :[phone] APS EPIDURAL CATHETER PROGRESS NOTE SERVICE DATE: 12/13/2017 SERVICE TIME: 3:10AM PRIMARY SERVICE: Urology Subjective INTERVAL HPI: Tess Hall is a 37 year old female who is POD #4 S/P Open LEFT Partial Nephrectomy Intraoperative ultrasound with interpretation Patient also has an IV JOINTER MACHINE: D/C'd 12/12. IV Line Appears Intact: Yes Pain at Surgical Site: Yes, pt reports 6/10 pain on left abdomen, improved. Patient sleeping. Condition of Surgical Site: Dressing intact Other Locations of Pain: no Pain Score at Rest: 6 Pain Score with Movement (cough, deep breathe, ambulation, etc): 8 Functional Status: Can cough AND deep breath adequately. Attempted to get up to sit on the side of the bed but limited by pain. Character: Achey Duration: consistent Radiation: No Relieved: Yes - IV Pain medications, PO Pain medications, Epidural bolus Patient Satisfied with Pain Control: no Overnight Events: Patient feels as if oxycodone is more helpful than her JOINTER MACHINE. Encouraged to use epidural bolus since her pain distribution is within the level of her epidural. Overnight Pain Interventions: none Diet: Clear liquid Objective ALLERGIES Allergen Reactions - Clindamycin Hives, Itching - Tylenol [Acetaminop* Hives, GI Upset 12/12: pt did not recall history of hives to pain mgmt, only minor GI upset Patient is Intubated and Sedated: No. Numbness?: yes Weakness?: Yes. Location: improved from yesterday, still generalized, pt uncertain if she is just guarding due to pain and likely just effort dependant Nausea?: No. Therapy: changed prochlorperazine to first line for nausea, ondansetron as second line Vomitting?: No Pruritis?: No Back pain?: No Headache?: No Sedation?: No Confusion/Delirium?: No Other: none Epidural Location: Thoracic Epidural Catheter Placed: Day of surgery MEDICATIONS: I have interrogated the JOINTER MACHINE pump(s) for the correct settings and solution: Yes. EPIDURAL MEDICATIONS AND JOINTER MACHINE SETTINGS: Bupivacaine 0.1% Basal Rate: 9 mL/hr. Patient Demand Bolus: 3 mL. Lockout Interval: 20 Minutes. Patient Received: not documented for morning Additional Medication(s) GIven: See Below Anticoagulation Therapy: none right now, contraindicated due to bleeding risk per surgery Last Dose Given: n/a Current hospital medications: oxyCODONE ER 20 mg tab(s) (OxyCONTIN) 20 mg ORAL q 12 H acetaminophen 1,000 mg tab(s) (TYLENOL) 1,000 mg ORAL q 6 H fentaNYL 50 mcg/mL 50 mcg injection (SUBLIMAZE) 50 mcg INTRAVENOUS q 2 H PRN oxyCODONE IR 10-15 mg tab(s) (ROXICODONE) 10-15 mg ORAL q 4 H PRN ondansetron (PF) 4 mg injection (ZOFRAN) 4 mg INTRAVENOUS q 6 H PRN prochlorperazine 10 mg injection (COMPAZINE) 10 mg INTRAVENOUS q 6 H PRN INV INSULIN GLARGINE 26 Units INJECTION (LONG-ACTING) (TOUJEO) (IRB 17-758) 26 Units SUBCUTANEOUS DAILY wDINNER INV INSULIN GLULISINE INJECTION (RAPID-ACTING) (APIDRA) (IRB 17-758) SUBCUTANEOUS AT BEDTIME INV INSULIN GLULISINE INJECTION (RAPID-ACTING) (APIDRA) (IRB 17-758) SUBCUTANEOUS w MEALS lidocaine 5 % 1 Patch (LIDODERM) 1 Patch TRANSDERMAL DAILY lidocaine patch - REMOVE OTHER AT BEDTIME lidocaine - VERIFY PATCH OTHER q 8 H nicotine 21 mg/24 hr 1 Patch (NICODERM) 1 Patch TRANSDERMAL DAILY nicotine -- REMOVE patch OTHER DAILY nicotine - verify patch OTHER q 8 H [MAR Hold due to Transfer] lactated ringers infusion 75 mL/hr INTRAVENOUS CONTINUOUS albuterol HFA 90 mcg/actuation 2 Puff (PROVENTIL HFA, VENTOLIN HFA) 2 Puff INHALATION q 6 H PRN cyclobenzaprine 10 mg tab(s) (FLEXERIL) 10 mg ORAL TID PRN docusate sodium 100 mg cap(s) (COLACE) 100 [address] BID [address] 40 mg tab(s) (PROTONIX) 40 mg ORAL DAILY (6 AM) dextrose 40 % 15 g 15 g ORAL PRN glucagon 1 mg injection (GLUCAGEN) 1 mg INTRAMUSCULAR PRN dextrose 50% in water 25 mL syringe 12.5 g INTRAVENOUS PRN NaCl 0.9% iv infusion 100 mL/hr INTRAVENOUS CONTINUOUS magnesium hydroxide 400 mg/5 mL 30 mL (MOM) 30 mL ORAL q 6 H PRN melatonin 3 mg tab(s) 3 mg ORAL DAILY (8 PM) diphenhydrAMINE 25-50 mg injection (BENADRYL) 25-50 mg INTRAVENOUS q 6 H PRN aluminum-magnesium hydroxide-simethicone 200-200-20 mg/5 mL 30 mL (MAALOX,MYLANTA,MAG-AL PLUS) 30 mL ORAL q 6 H PRN phenol 1 [place] (CHLORASEPTIC) 1 [place] MUCOUS MEMBRANE (TOPICAL MOUTH AND THROAT) q 2 H PRN bupivacaine epidural 0.1% in NaCl 0.9% 300 mL EPIDURAL CONTINUOUS mometasone 220 mcg (14 doses) 1 Puff inhaler (ASMANEX) 1 Puff INHALATION DAILY PHYSICAL EXAM: 12/12/17 1127 12/12/17 1604 12/12/17 1824 12/12/17 1950 BP: 118/76 133/74 119/67 Pulse: 61 116 106 Resp: Temp: 36.9 ?C (98.4 ?F) 37.9 ?C (100.2 ?F) 36.9 ?C (98.4 ?F) TempSrc: Oral Oral Oral SpO2: (!) 84% 95% 95% 97% NEUROLOGICAL: Sensory Exam: Abdomen: T6-L2 level on epidural on left. T6-L2 level on R side. Motor Exam: LLE: 4/5 flexion/extension. RLE: 4/5 flexion/extension. Poor effort, exacerbates abd pain. AFFECT: Pt appears awake and alert. GENERAL: Appears uncomfortable, feels SOB but does not attribute it to pain, says she feels like she needs to cough. RESPIRATORY EXAM: Respirations: Breathing appears normal Thoracostomy Tube: No GASTROINTESTINAL EXAM: Bowel Sounds: Present Abdominal exam: L side incision with dressing intact, trace serosanguinous discharge. LLQ drain in place with serosanguinous drainage. LAB RESULTS: Diagnostic tests reviewed for today's visit: Most recent labs and imaging results. APTT 24.0 12/01/2017 PT Sec 9.3 12/01/2017 PT INR <0.9 12/01/2017 Hemoglobin 10.7 12/10/2017 Hematocrit 32.6 12/10/2017 Platelet Count 201 12/10/2017 Creatinine 0.70 12/10/2017 BUN 20 12/10/2017 Assessment/Plan Patient is being seen for pain as described in HPI above. Patient is tolerating diet today, but says pain is about the same as yesterday. JOINTER MACHINE D/C'd and patient encouraged to take oxycodone. Patient does not feel JOINTER MACHINE was affecting her pain much. Assessment: Pain control suboptimal. Plan of Care: Continue epidural analgesia to promote comfort, mobility, and pulmonary toilet. - scheduled tylenol 1g q6h - encouraged to take PO oxycodone - oxycodone 20mg q12 for 6 doses - epidural settings increased 12/15/19 - D/C'd JOINTER MACHINE, able to tolerate diet - continue IV fentanyl for BTP SIGNATURE: Dariel Frazier DO PGY1 PATIENT NAME: Tess Hall DATE: December 13, 2017 TIME: 3:10AM PAGER/CONTACT #: [phone] CBC AND DIFFERENTIAL Collected: 12/13/2017 Status: F Source: STEGER 1:13 AM [facility] REPOSITORY TYPE CODE TESTS RESULT OUT OF REFERENCE UNITS RANGE LAB WBC 3.70-11.00 k/uL WBC 9.35 LAB RBC 3.90-5.20 m/uL Low RBC 2.99 LAB HGB 11.5-15.5 g/dL Low Hemoglobin 8.3 LAB HCT 36.0-46.0 % Low Hematocrit 24.7 LAB MCV 80.0-100.0 fL MCV 82.6 LAB MCH 26.0-34.0 pG MCH 27.8 LAB MCHC 30.5-36.0 g/dL MCHC 33.6 LAB RDWCV 11.5-15.0 % RDW-CV 13.8 LAB PLTCT 150-400 k/uL Platelet Count 194 LAB MPV 9.0-12.7 fL MPV 10.2 LAB ANEUT % Neut% 80.5 LAB AANEUT 1.45-7.50 k/uL Abs Neut High 7.53 LAB ALYMP % Lymph% 10.5 LAB AALYMP 1.00-4.00 k/uL Low Abs Lymph 0.98 LAB AMONO % Martin% 7.3 LAB AAMONO <0.87 k/uL Abs Martin 0.68 LAB AEOS % Eosin% 1.5 LAB AAEOS <0.46 k/uL Abs Eosin 0.14 LAB ABASO % Baso% 0.2 LAB AABASO <0.11 k/uL Abs Baso <0.03 LAB AUNRBC 0 /100 WBC NRBCs 0.0 LAB ABNRBC <0.01 k/uL Absolute nRBC <0.01 LAB DTYP DTYPE Auto Diff Performed By: #### CBCDIF, BMP #### [facility] [address] [place] [address] BASIC METABOLIC PANL Collected: 12/13/2017 Status: F Source: STEGER 1:13 AM [facility] REPOSITORY TYPE CODE TESTS RESULT OUT OF REFERENCE UNITS RANGE LAB GLU 74-99 mg/dL High Glucose 143 Result Comment: The [place] Diabetes [employer] (ADA) provides guidance for cutoff values for fasting glucose and random glucose. The ADA defines fasting as no caloric intake for at least 8 hours. Fas ting plasma glucose results between 100 to 125 mg/dL indicate increased risk for diabetes (prediabetes). Fasting plasma glucose results greater than or equal to 126 mg/dL meet the criteria for diagnosis of diabetes. In the absence of unequivocal hyperglycemia, results should be confirmed by repeat testing. In a patient with classic symptoms of hyperglycemia or hyperglycemic crisis, random plasma glucose results greater than or equal to 200 mg/dL meet the criteria for diagnosis of diabetes. Reference: Standards of Medical Care in Diabetes 2016, [place] [employer]. Diabetes Care. 2016.39(Suppl 1). LAB BUN 7-21 mg/dL BUN 7 LAB CRET 0.58-0.96 mg/dL Creatinine 0.61 LAB NA 136-144 mmol/L Sodium 136 LAB K 3.7-5.1 mmol/L Potassium Low 3.1 LAB CL 97-105 mmol/L Chloride 100 LAB CO2 22-30 mmol/L CO2 22 LAB AGAP 9-18 mmol/L Anion Gap 14 LAB CA 8.5-10.2 mg/dL Calcium, Low Total 8.0 LAB GFRAA eGFR- Amer. >60 LAB GFRNAA . eGFR-All Other Races >60 Result Comment: eGFR (Estimated GFR) Units of measure: mL/min/1.73 meters squared eGFR is derived from the reexpressed MDRD Study equation using the following parameters: serum creatinine, age, gender and race. The creatinine assay has been calibrated to be traceable to IDMS. An eGFR <60 mL/min/1.73m2 for >3 months is consistent with chronic kidney disease. Refer to KDOQI guidelines for clinical interpretation. In patients with unstable renal function, e.g. those with acute kidney injury, the eGFR may not accurately reflect actual GFR. Performed By: #### CBCDIF, BMP #### [facility] [address] [place] [id number] CBC Collected: 12/13/2017 Status: F Source: STEGER 12:15 AM [facility] REPOSITORY TYPE CODE TESTS RESULT OUT OF REFERENCE UNITS RANGE LAB WBC 3.70-11.00 k/uL WBC 10.27 LAB RBC 3.90-5.20 m/uL Low RBC 3.47 LAB HGB 11.5-15.5 g/dL Low Hemoglobin 9.3 LAB HCT 36.0-46.0 % Low Hematocrit 30.2 LAB MCV 80.0-100.0 fL MCV 87.0 LAB MCH 26.0-34.0 pG MCH 26.8 LAB MCHC 30.5-36.0 g/dL MCHC 30.8 LAB RDWCV 11.5-15.0 % RDW-CV 14.2 LAB PLTCT 150-400 k/uL Low Platelet Count 112 LAB MPV 9.0-12.7 fL MPV 11.0 LAB ABSNUC <0.01 k/uL Absolute nRBC <0.01 Performed By: #### CBC #### [facility] [address], [place] [address] CBC Collected: 12/12/2017 Status: F Source: STEGER 3:34 PM [facility] REPOSITORY TYPE CODE TESTS RESULT OUT OF RANGE REFERENCE UNITS LAB WBC 3.70-11.00 k/uL High WBC 11.62 Result Comment: Less than optimal volume of specimen received and tested. LAB RBC 3.90-5.20 m/uL RBC Low 3.24 LAB HGB 11.5-15.5 g/dL Hemoglobin Low 9.1 LAB HCT 36.0-46.0 % Hematocrit Low 27.5 LAB MCV 80.0-100.0 fL MCV 84.9 LAB MCH 26.0-34.0 pG MCH 28.1 LAB MCHC 30.5-36.0 g/dL MCHC 33.1 LAB RDWCV 11.5-15.0 % RDW-CV 13.9 LAB PLTCT 150-400 k/uL Platelet Count 190 LAB MPV 9.0-12.7 fL MPV 10.1 LAB ABSNUC <0.01 k/uL Absolute nRBC <0.01 Performed By: #### CBC #### [facility] [address] [place], [place] [address] XR CHEST 2V FRONTAL/LAT Observed: 12/12/2017 Status: F Source: STEGER 2:23 PM [facility] REPOSITORY * * *Final Report* * * DATE OF EXAM: Dec 12 2017 2:23PM KAITLIN [id number] - XR CHEST 2V FRONTAL/LAT / PROCEDURE REASON: Chest pain, acute, nonspecific, low prob CAD * * * * Physician Interpretation * * * * EXAMINATION: CHEST RADIOGRAPH (2 VIEW FRONTAL and LATERAL) CLINICAL HISTORY: Chest pain, acute, nonspecific, low prob CAD, MQ: XC2_5 Comparison: 1 day prior RESULT: Lines, tubes, and devices: Presumed epidural catheter. Lungs and pleura: Left greater than right pleural effusions, with fluid tracking along the right major fissure presumed. Bibasilar opacities suggestive of atelectasis. Improved airspace opacities in the right upper lobe, without resolution. Cardiomediastinal silhouette: Presumed, stable cardiomediastinal silhouette. Other: Presumed stable skeletal structures. IMPRESSION: See body of the report 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 Transcribe Date/Time: Dec 12 2017 2:43P Dictated by : ELEN HAMPTON MD This examination was interpreted and the report reviewed and electronically signed by: ELEN HAMPTON MD on Dec 12 2017 2:44PM EST [id number] PLAN OF CARE Observed: 12/12/2017 Status: COMPLETED Source: STEGER 12:56 PM [facility] REPOSITORY O ID: [id number] Author: Zeb Ramírez Service: Endocrinology Author Type: Physician Type: Plan of Care Filed: 12/12/2017 1:02 PM Note Text: IRB 17-758 A Randomized Controlled Trial Comparing Glargine U300 and Glargine U100 for the Inpatient and Post-Hospital Discharge Management of Medicine and Surgery Patients with Type 2 Diabetes HISTORY Ms Tess Hall is a 37 year old female is enrolled in the above trial. Patient is randomized to the glargine U 300 arm. Already under our endocrine consult service I called her today. Still feeling unwell Informed her randomized to Toujeo, which will start tonight as she received non-study Lantus last night. History of diabetes medications: Prior to admission diabetes medications: Bydureon 2mg (once weekly on Fridays) Glipizide 20 mg BID Metformin 1000 mg BID Basalglar 30-40 units pm ? Current diabetes medications here in the hospital: Toujeo and Apidra under study protocol BMP, MAR and diabetic flowsheet reviewed ASSESSMENT/PLAN Type 2 diabetes Still on clear liquid diet Fingerstick POC glucose check q ac and hs Glargine U 300 (Toujeo), 26 units starting 6pm tonight Apidra 0 units with meals as not yet eating. Once started, hold if NPO, half dose if poor appetite Apidra usual scale (or study sliding scale #2) during mealtime Apidra usual scale (or study sliding scale #2) at bedtime Discontinue other diabetes medications Hypoglycemia protocol in place Already seen by our certified breastfeeding educator For discharge, does not qualify for outpatient arm of the study. Endocrine consult service to give recommendations May see us in clinic for follow-up if they wish May page me marcel for questions. Damon Ramírez MD, MPH December 12, 2017 12:57 PM Pager [phone] CONSULT PROG Observed: 12/12/2017 Status: COMPLETED Source: STEGER 12:54 PM [facility] REPOSITORY HNO ID: [id number] Author: Dariel Frazier Service: Anesthesiology Author Type: Resident Type: Consult Progress Note Filed: 12/12/2017 3:49 PM Note Text: Attestation signed by Jason Chung at 01/03/2018 10:55 PM I have reviewed the progress note obtained and documented by the resident on the APS team and I personally participated in the campbell component. I also editted the resident note and did necessary corrections. I have discussed the assessment and plan with the acute pain team, see above note for the details of the analgesic plan. In short, at the time of my exam, Pain is not well controlled will continue the current described regimen ( see the resident/fellow notes for details). Will apply multimodal strategy with non-opioid adjuvants . Titrate the dose to the desired effect (adequate analgesia and minimal suffering). Continue the epidural infusion at the same rate, as well as other adjuvant meds. No apparent major epidural complications . Will titrate the current analgesic regimen for acceptable pain level (tolerable pain with minimal side effects) Will reassess tomorrow for any necessary changes. Jason Chung M.D Acute Pain Management Staff Pager :[phone] APS EPIDURAL CATHETER PROGRESS NOTE SERVICE DATE: 12/12/2017 SERVICE TIME: 12:54PM PRIMARY SERVICE: Urology Subjective INTERVAL HPI: Tess Hall is a 37 year old female who is POD #3 S/P Open LEFT Partial Nephrectomy Intraoperative ultrasound with interpretation Patient also has an IV JOINTER MACHINE: D/C'd 12/12. IV Line Appears Intact: Yes Pain at Surgical Site: Yes, pt reports 9/10 pain on left abdomen Condition of Surgical Site: Dressing intact Other Locations of Pain: no Pain Score at Rest: 9/10 Pain Score with Movement (cough, deep breathe, ambulation, etc): 10/10 Functional Status: Can cough AND deep breath adequately. Attempted to get up to sit on the side of the bed but limited by pain. Character: Achey Duration: consistent Radiation: No Relieved: Yes - IV Pain medications, PO Pain medications, Epidural bolus Patient Satisfied with Pain Control: no Overnight Events: Patient feels as if oxycodone is more helpful than her JOINTER MACHINE. Encouraged to use epidural bolus since her pain distribution is within the level of her epidural. Overnight Pain Interventions: none Diet: Clear liquid Objective ALLERGIES Allergen Reactions - Clindamycin Hives, Itching - Tylenol [Acetaminop* Hives, GI Upset Patient is Intubated and Sedated: No. Numbness?: no Weakness?: Yes. Location: improved from yesterday, still generalized, pt uncertain if she is just guarding due to pain and likely just effort dependant Nausea?: Yes. Therapy: changed prochlorperazine to first line for nausea, ondansetron as second line Vomitting?: No Pruritis?: No Back pain?: No Headache?: No Sedation?: No Confusion/Delirium?: No Other: none Epidural Location: Thoracic Epidural Catheter Placed: Day of surgery MEDICATIONS: I have interrogated the JOINTER MACHINE pump(s) for the correct settings and solution: Yes. EPIDURAL MEDICATIONS AND JOINTER MACHINE SETTINGS: Bupivacaine 0.1% Basal Rate: 5 mL/hr. Patient Demand Bolus: 6 mL. Lockout Interval: 30 Minutes. Patient Received: 10 boluses in last 8 hours. Additional Medication(s) GIven: See Below Anticoagulation Therapy: none right now, contraindicated due to bleeding risk per surgery Last Dose Given: n/a Current hospital medications: fentaNYL 50 mcg/mL 50 mcg injection (SUBLIMAZE) 50 mcg INTRAVENOUS q 2 H PRN oxyCODONE IR 10-15 mg tab(s) (ROXICODONE) 10-15 mg ORAL q 4 H PRN ondansetron (PF) 4 mg injection (ZOFRAN) 4 mg INTRAVENOUS q 6 H PRN prochlorperazine 10 mg injection (COMPAZINE) 10 mg INTRAVENOUS q 6 H PRN INV INSULIN GLARGINE 26 Units INJECTION (LONG-ACTING) (TOUJEO) (IRB 17-758) 26 Units SUBCUTANEOUS DAILY wDINNER INV INSULIN GLULISINE INJECTION (RAPID-ACTING) (APIDRA) (IRB 17-758) SUBCUTANEOUS AT BEDTIME INV INSULIN GLULISINE INJECTION (RAPID-ACTING) (APIDRA) (IRB 17-758) SUBCUTANEOUS w MEALS lidocaine 5 % 1 Patch (LIDODERM) 1 Patch TRANSDERMAL DAILY lidocaine patch - REMOVE OTHER AT BEDTIME lidocaine - VERIFY PATCH OTHER q 8 H nicotine 21 mg/24 hr 1 Patch (NICODERM) 1 Patch TRANSDERMAL DAILY nicotine -- REMOVE patch OTHER DAILY nicotine - verify patch OTHER q 8 H [MAR Hold due to Transfer] lactated ringers infusion 75 mL/hr INTRAVENOUS CONTINUOUS albuterol HFA 90 mcg/actuation 2 Puff (PROVENTIL HFA, VENTOLIN HFA) 2 Puff INHALATION q 6 H PRN cyclobenzaprine 10 mg tab(s) (FLEXERIL) 10 mg ORAL TID PRN docusate sodium 100 mg cap(s) (COLACE) 100 mg ORAL BID pantoprazole DR 40 mg tab(s) (PROTONIX) 40 mg ORAL DAILY (6 AM) dextrose 40 % 15 g 15 g ORAL PRN glucagon 1 mg injection (GLUCAGEN) 1 mg INTRAMUSCULAR PRN dextrose 50% in water 25 mL syringe 12.5 g INTRAVENOUS PRN NaCl 0.9% iv infusion 100 mL/hr INTRAVENOUS CONTINUOUS magnesium hydroxide 400 mg/5 mL 30 mL (MOM) 30 mL ORAL q 6 H PRN melatonin 3 mg tab(s) 3 mg ORAL DAILY (8 PM) diphenhydrAMINE 25-50 mg injection (BENADRYL) 25-50 mg INTRAVENOUS q 6 H PRN aluminum-magnesium hydroxide-simethicone 200-200-20 mg/5 mL 30 mL (MAALOX,MYLANTA,MAG-AL PLUS) 30 mL ORAL q 6 H PRN phenol 1 [place] (CHLORASEPTIC) 1 [place] MUCOUS MEMBRANE (TOPICAL MOUTH AND THROAT) q 2 H PRN bupivacaine epidural 0.1% in NaCl 0.9% 300 mL EPIDURAL CONTINUOUS mometasone 220 mcg (14 doses) 1 Puff inhaler (ASMANEX) 1 Puff INHALATION DAILY PHYSICAL EXAM: 12/12/17 0716 12/12/17 1001 12/12/17 1003 12/12/17 1127 BP: 110/64 118/76 Pulse: 104 61 Resp: Temp: 37 ?C (98.6 ?F) 36.9 ?C (98.4 ?F) TempSrc: Oral Oral SpO2: 96% (!) 84% NEUROLOGICAL: Sensory Exam: Abdomen: T6-L2 level on epidural on left. T6-L2 level on R side. Motor Exam: LLE: 4/5 flexion/extension. RLE: 4/5 flexion/extension. Poor effort, exacerbates abd pain. AFFECT: Pt appears awake and alert. GENERAL: Appears uncomfortable, feels SOB but does not attribute it to pain, says she feels like she needs to cough. RESPIRATORY EXAM: Respirations: Breathing appears normal Thoracostomy Tube: No GASTROINTESTINAL EXAM: Bowel Sounds: Present Abdominal exam: L side incision with dressing intact, trace serosanguinous discharge. LLQ drain in place with serosanguinous drainage. LAB RESULTS: Diagnostic tests reviewed for today's visit: Most recent labs and imaging results. APTT 24.0 12/01/2017 PT Sec 9.3 12/01/2017 PT INR <0.9 12/01/2017 Hemoglobin 10.7 12/10/2017 Hematocrit 32.6 12/10/2017 Platelet Count 201 12/10/2017 Creatinine 0.70 12/10/2017 BUN 20 12/10/2017 Assessment/Plan Patient is being seen for pain as described in HPI above. Patient is tolerating diet today, but says pain is about the same as yesterday. JOINTER MACHINE D/C'd and patient encouraged to take oxy 5-10mg. Patient does not feel JOINTER MACHINE was affecting her pain much. Assessment: Pain control suboptimal. Plan of Care: Continue epidural analgesia to promote comfort, mobility, and pulmonary toilet. - scheduled tylenol 1g q6h - encouraged to take PO oxycodone - oxycodone 20mg q12 for 6 doses - epidural settings increased 12/15/19 - D/C'd JOINTER MACHINE, able to tolerate diet - continue IV fentanyl for BTP Awaiting final recommendations from staff SIGNATURE: Dariel Frazier DO PGY1 PATIENT NAME: Tess Hall DATE: December 12, 2017 TIME: 12:54PM PAGER/CONTACT #: [phone] CONSULT PROG Observed: 12/12/2017 Status: COMPLETED Source: STEGER 9:13 AM [facility] REPOSITORY HNO ID: [id number] Author: Melanie Blancas Service: Endocrinology Author Type: Nurse Practitioner Type: Consult Progress Note Filed: 12/12/2017 8:12 PM Note Text: DIABETES CARE TEAM NOTE SERVICE DATE: 12/12/2017 SERVICE TIME: 9:13 AM Subjective From original consult note on 12/10/2017 HPI: Ms. Tess Hall is a 37 year old female with a 5 year history of Diabetes Mellitus Type 2 hyperglycemia who was admitted on 12/09/2017, s/p open left partial nephrectomy 12/09/2017 Past medical history significant for HTN, HLD, left renal mass, and asthma. Patient does not exercise. Last HbA1c was 12.7%on 12/26/2015. She has a family history of diabetes in her mother. She is followed by PCP for her diabetes. DIABETIC COMPLICATIONS: None Pre-Admission DM Regimen: Preadmission oral agents: Exedrin4 (Bydureon) 2mg reconstituted pen (once weekly on Fridays) Glipizide 20 mg BID Metformin 1000 mg BID Preadmission insulin regimen:basalglar 30-40 units pm Self Monitoring Blood Glucose: Type of Monitor: Freestyle Frequency of Monitorin-3 times a day BG Values: 80-90-120mg/dL Hypoglycemia: Yes, Frequency: once times a week Time of Day in early am wakes up with low usually happen when takes her Bydureon and lantus Symptoms: Shakiness and Sweating Feel symptoms when BS is 40-<70 mg/dL INTERVAL HPI: Patient not seen today. Patient spoken to by Dr. Ramírez RE: insulin study and doses via phone. Will see patient tomorrow. PERTINENT ROS: Objective PHYSICAL EXAM: BP 110/64 Pulse 104 Temp 37 ?C (98.6 ?F) (Oral) Resp 17 LMP 11/20/2017 SpO2 96% There is no height or weight on file to calculate BMI. Laboratory Results: Hemoglobin (g/dL) Date Value 12/11/2017 10.0 Hematocrit (%) Date Value 12/11/2017 30.4 WBC (k/uL) Date Value 12/11/2017 13.09 Platelet Count (k/uL) Date Value 12/11/2017 176 Potassium (mmol/L) Date Value 12/12/2017 3.8 Sodium (mmol/L) Date Value 12/12/2017 134 Creatinine (mg/dL) Date Value 12/12/2017 0.62 BUN (mg/dL) Date Value 12/12/2017 7 Glucose (mg/dL) Date Value 12/12/2017 147 PT INR (no units) Date Value 12/01/2017 <0.9 Lipids: No results found for: CHOL, HDL, LDL, TG Albumin (g/dL) Date Value 12/01/2017 3.5 (L) Bilirubin, Total (mg/dL) Date Value 12/01/2017 0.2 Alkaline Phosphatase (U/L) Date Value 12/01/2017 99 AST (U/L) Date Value 12/01/2017 12 (L) ALT (U/L) Date Value 12/01/2017 12 Protein, Total (g/dL) Date Value 12/01/2017 5.5 (L) No results found for: LVEF Hemoglobin A1C Date Value 12/10/2017 7.2 % 12/26/2015 12.7 % 01/29/2015 11.5 Diabetes Management in Hospital Hospital BG values or ranges: Date AM LUNCH DINNER HS 3AM 12/09/2017 181 137 186(H1)215 237(H2) 181 12/10/2017 172(h1) 167(H1) Lantus 10 u 164(1H) 156(1H) 12/11 154(1H) 172(1H) 165(2H) Lantus 14 u 176 12/12 182(4A) 185(4A) 208(4A) Toujeo 26 u Other Pertinent Medications: Continuous Infusion NS at 150ml/hour / Epidural /JOINTER MACHINE pain pump Steroids: none Diet: Clear Liquids Tube Feeding: No Supplements: none Impression/Recommendations Patient with uncontrolled Diabetes Mellitus Type 2 hyperglycemia s/p open left partial nephrectomy 12/09/2017 whom we have been consulted for glycemic control. Diet advanced to clear liquids. Patient currently participating study, insulin doses are adjusted by Dr. Tere Ramírez. RECOMMENDATIONS: ? Continue Basal Insulin: Toujeo 26 units with dinner ? Hold Prandial Insulin: based on glucose trends ? Continue Supplemental Sliding Scale: Apidra custom scales ACHS ? Accuchecks: ACHS ? Recommend As per Unit Dietitian ? Check HbA1C to see if there was any preceding hyperglycemia. ? Consult CDE regarding: DM Education including likely noneTBD does insulin and oral at home DM DISCHARGE PLAN: ? Likely on home oral agents + basal as labs allow ? Check blood sugars Three times a Day ? Diet: As per Unit Dietitian ? Exercise as prescribed by primary team ? Follow up with hard candy batch mixer and qc analyst as recommended. ? 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 ? Diabetes Care Team Hospital Discharge Help Line: [phone] SIGNATURE: Melanie Blancas APRN.FREIGHT TRAFFIC CONSULTANT PATIENT NAME: Tess Hall DATE: 12/12/2017 TIME: 9:16 AM PAGER/CONTACT #: [phone] PROGRESS Observed: 12/12/2017 Status: COMPLETED Source: STEGER 8:59 AM [facility] REPOSITORY HNO ID: [id number] Author: Heather Torres Service: Urology Author Type: Physician Type: Progress Notes Filed: 12/12/2017 10:31 AM Note Text: UROLOGY SERVICE PROGRESS NOTE PATIENT INFO: Tess Hall 37 year old DATE: 12/12/2017 S: Tachycardic last night and short of breath. Improved with breathing treatment--pt also endorsed significant anxiety at the time. CXR did reveal a focal opacity that we will follow with formal study today. This morning she is breathing more comfortably, HR down, and still saturating well on 4L. She reports pain control is moderate. No nausea or vomiting, no flatus yet PAST MEDICAL HISTORY Diagnosis Date - Depression - DM2 (diabetes mellitus, type 2) (HCC) - HLD (hyperlipidemia) - Hx of acute pyelonephritis - Morbid obesity (HCC) - Reactive airway disease - Renal mass - Smoker Exam: BP 110/64 Pulse 104 Temp 37 ?C (98.6 ?F) (Oral) Resp 17 LMP 11/20/2017 SpO2 96% Intake/Output Summary (Last 24 hours) at 12/12/17 0859 Last data filed at 12/12/17 0600 Gross per 24 hour Intake 2706 ml Output 1150 ml Net 1556 ml UO: 1150 Drains: 75cc DAVID General: lying in bed in no acute distress Lungs: even unlabored respirations Abdomen: obese, soft, approp tender w/o sophie/guarding, left flank inc clean dry and in tact Genitourinary: serrano clear yellow urine Extremities: no LE edema, SCDs on Labs: Recent Labs 12/12/17 0656 12/11/17 0334 12/10/17 0423 12/09/17 1612 WBC -- 13.09* 11.97* 17.61* HB -- 10.0* 10.7* 11.6 HCT -- 30.4* 32.6* 35.3* PLT -- 176 201 222 NA 134* 134* 136 138 K 3.8 3.8 4.0 4.3 CHLOR 100 100 101 106* CO2 23 22 24 22 BUN 7 14 20 25* CREAT 0.62 0.69 0.70 0.63 GLUC 147* 158* 181* 187* Current hospital medications: fentaNYL 50 mcg/mL 50 mcg injection (SUBLIMAZE) 50 mcg INTRAVENOUS q 2 H PRN oxyCODONE IR 10-15 mg tab(s) (ROXICODONE) 10-15 mg ORAL q 4 H PRN ondansetron (PF) 4 mg injection (ZOFRAN) 4 mg INTRAVENOUS q 6 H PRN prochlorperazine 10 mg injection (COMPAZINE) 10 mg INTRAVENOUS q 6 H PRN INV INSULIN GLARGINE 26 Units INJECTION (LONG-ACTING) (TOUJEO) (IRB 17-758) 26 Units SUBCUTANEOUS DAILY wDINNER INV INSULIN GLULISINE INJECTION (RAPID-ACTING) (APIDRA) (IRB 17-758) SUBCUTANEOUS AT BEDTIME INV INSULIN GLULISINE INJECTION (RAPID-ACTING) (APIDRA) (IRB 17-758) SUBCUTANEOUS w MEALS lidocaine 5 % 1 Patch (LIDODERM) 1 Patch TRANSDERMAL DAILY lidocaine patch - REMOVE OTHER AT BEDTIME lidocaine - VERIFY PATCH OTHER q 8 H nicotine 21 mg/24 hr 1 Patch (NICODERM) 1 Patch TRANSDERMAL DAILY nicotine -- REMOVE patch OTHER DAILY nicotine - verify patch OTHER q 8 H [MAR Hold due to Transfer] lactated ringers infusion 75 mL/hr INTRAVENOUS CONTINUOUS albuterol HFA 90 mcg/actuation 2 Puff (PROVENTIL HFA, VENTOLIN HFA) 2 Puff INHALATION q 6 H PRN cyclobenzaprine 10 mg tab(s) (FLEXERIL) 10 mg ORAL TID PRN docusate sodium 100 mg cap(s) (COLACE) 100 mg ORAL BID pantoprazole [address] 40 mg tab(s) (PROTONIX) 40 mg ORAL DAILY (6 AM) dextrose 40 % 15 g 15 g ORAL PRN glucagon 1 mg injection (GLUCAGEN) 1 mg INTRAMUSCULAR PRN dextrose 50% in water 25 mL syringe 12.5 g INTRAVENOUS PRN NaCl 0.9% iv infusion 100 mL/hr INTRAVENOUS CONTINUOUS magnesium hydroxide 400 mg/5 mL 30 mL (MOM) 30 mL ORAL q 6 H PRN melatonin 3 mg tab(s) 3 mg ORAL DAILY (8 PM) diphenhydrAMINE 25-50 mg injection (BENADRYL) 25-50 mg INTRAVENOUS q 6 H PRN aluminum-magnesium hydroxide-simethicone 200-200-20 mg/5 mL 30 mL (MAALOX,MYLANTA,MAG-AL PLUS) 30 mL ORAL q 6 H PRN phenol 1 [place] (CHLORASEPTIC) 1 [place] MUCOUS MEMBRANE (TOPICAL MOUTH AND THROAT) q 2 H PRN bupivacaine epidural 0.1% in NaCl 0.9% 300 mL EPIDURAL CONTINUOUS mometasone 220 mcg (14 doses) 1 Puff inhaler (ASMANEX) 1 Puff INHALATION DAILY HYDROmorphone 0.5 mg/mL JOINTER MACHINE CLINICIAN DOSE 0.2-0.4 mg 0.2- 0.4 mg INTRAVENOUS (PACU) PRN HYDROmorphone JOINTER MACHINE 0.5 mg/mL in NaCl 0.9% 100 mL INTRAVENOUS CONTINUOUS Imp/Plan: 37 year old female POD# 3?s/p open left partial nephrectomy ? - Diet - clear liquid diet - Activity - out of bed - Drains - serrano out, strict I/Os - DVT prophylaxis - PAS Stockings on and Pharmacologic DVT prophylaxis contraindicated due to bleeding risk - Antibiotics - ancef perioperative - Secondary Dx and Complications - - shortness of breath - formal CXR today, 10mg lasix IV, continue telemetry ?- T2DM: ISS and accuchecks ?- morbid obesity BMI 55: monitor ?- smoker active: smoking cessation ?- asthma: inhaler (asmanex) PRN, resp therapy consult ?- left renal mass, suspected malignancy, final pathology pending ?- pain: epidural and fentanyl JOINTER MACHINE - APMS input appreciated ?- GERD: PPI - Discharge planning - pending course Discussed with staff, Dr. Brain Whitehead MD December 12, 2017 8:59 AM Pager: [phone] As above, looks and feels better today, pulse back to about 100-105, BP stable Good U, DAVID 75 CXR yesterday with poss area of consolidation, repeat CXR ordered for today CBC pending, SCr 0.62 Abd soft, NT Prog well overall, encouraged OOB, IS Check cbc and cxr Serrano out be reminded that we need to record all UO Heather Torres MD BASIC METABOLIC PANL Collected: 12/12/2017 Status: F Source: STEGER 6:56 AM [facility] REPOSITORY TYPE CODE TESTS RESULT OUT OF REFERENCE UNITS RANGE LAB GLU 74-99 mg/dL High Glucose 147 Result Comment: The [place] [employer] (ADA) provides guidance for cutoff values for fasting glucose and random glucose. The ADA defines fasting as no caloric intake for at least 8 hours. Fas ting plasma glucose results between 100 to 125 mg/dL indicate increased risk for diabetes (prediabetes). Fasting plasma glucose results greater than or equal to 126 mg/dL meet the criteria for diagnosis of diabetes. In the absence of unequivocal hyperglycemia, results should be confirmed by repeat testing. In a patient with classic symptoms of hyperglycemia or hyperglycemic crisis, random plasma glucose results greater than or equal to 200 mg/dL meet the criteria for diagnosis of diabetes. Reference: Standards of Medical Care in Diabetes 2016, [place] [employer]. Diabetes Care. 2016.39(Suppl 1). LAB BUN 7-21 mg/dL BUN 7 LAB CRET 0.58-0.96 mg/dL Creatinine 0.62 LAB NA 136-144 mmol/L Sodium Low 134 LAB K 3.7-5.1 mmol/L Potassium 3.8 LAB CL 97-105 mmol/L Chloride 100 LAB CO2 22-30 mmol/L CO2 23 LAB AGAP 9-18 mmol/L Anion Gap 11 LAB CA 8.5-10.2 mg/dL Calcium, Low Total 7.8 LAB GFRAA eGFR- Amer. >60 LAB GFRNAA . eGFR-All Other Races >60 Result Comment: eGFR (Estimated GFR) Units of measure: mL/min/1.73 meters squared eGFR is derived from the reexpressed MDRD Study equation using the following parameters: serum creatinine, age, gender and race. The creatinine assay has been calibrated to be traceable to IDMS. An eGFR <60 mL/min/1.73m2 for >3 months is consistent with chronic kidney disease. Refer to KDOQI guidelines for clinical interpretation. In patients with unstable renal function, e.g. those with acute kidney injury, the eGFR may not accurately reflect actual GFR. Performed By: #### BMP #### [facility] [address] [place], [place] [address] PROGRESS Observed: 12/11/2017 Status: COMPLETED Source: STEGER 8:52 PM [facility] [place] REPOSITORY HNO ID: [id number] Author: Charles Whitehead Service: Urology Author Type: Resident Type: Progress Notes Filed: 12/11/2017 8:54 PM Note Text: Tess Hall [id number] 12/11/2017 8:52 PM Patient seen this evening for shortness of breath, tachycardia and saturating in high 80s low 90s. Slight increase work of breathing on exam, HR 120s, O2 sat 91. Diminished lung sounds bilaterally. Patient undergoing RT treatment at this time, and reports asthma is acting up. No chest pain but does have shortness of breath. - CXR - tele -will follow closely Charles Whitehead MD December 11, 2017 8:53 PM Pager: [phone] XR CHEST 1V FRONTAL Observed: 12/11/2017 Status: F Source: STEGER 8:07 PM [facility] REPOSITORY * * *Final Report* * * DATE OF EXAM: Dec 11 2017 8:07PM KAITLIN [id number] - XR CHEST 1V FRONTAL / PROCEDURE REASON: Chest pain or SOB, pleurisy or effusion suspected * * * * Physician Interpretation * * * * AP chest COMPARISON: 08/17/2017 There has been development of focal parenchymal opacity in the right upper lobe suggesting infection/pneumonia or hemorrhage. Short-term follow-up is recommended to assess resolution and to exclude underlying secondary process. Vague opacities have developed at the bases, right more than left. These may represent partial atelectasis. Superimposed infiltrates/infection or edema cannot be entirely excluded. Underlying small right pleural effusion has developed. Heart remains normal. Thoracic aorta is minimally tortuous. 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 Transcribe Date/Time: Dec 11 2017 10:26P Dictated by : JEISON BARCENAS MD This examination was interpreted and the report reviewed and electronically signed by: JEISON BARCENAS MD on Dec 11 2017 10:27PM EST [id number] Observed: 12/11/2017 Status: COMPLETED Source: STEGER 6:12 PM [facility] REPOSITORY HNO ID: [id number] Author: Lawson Conner Service: Urology Author Type: Resident Type: Discharge Summaries Filed: 12/16/2017 11:20 AM Note Text: The [address] [address] or ([phone]) [facility] E N T I A L I N F O R M A T I O N STANDARD [facility] DOCUMENT DISCHARGE SUMMARY Patient Name: Tess Hall Patient Admission Date: 12/09/2017 Discharge Date: December 15, 2017 Attending Physician: Heather Torres Principal Diagnosis: left renal mass - suspected malignant neoplasm Secondary Diagnoses: Patient Active Hospital Problem List: Renal mass (08/17/2017) Obesity, Class III, BMI >= 40 (12/01/2017) Operations During Hospitalization: Open LEFT Partial Nephrectomy Procedures Performed While Hospitalized: Anesthesia for surgery Reason for Hospitalization: Patient underwent the above procedure, and was admitted for post-operative recovery. Hospital Course: Patient underwent the above procedure and post-operatively was transferred to the recovery room and then to the regular nursing floor. Patient's diet was advanced as tolerated, and pain control was transitioned to oral medications. Her serrano catheter was removed, and patient voided without difficulty. Endocrinology was consulted to assist with management of her diabetes - the recommendations were followed both in the hospital and on discharge. Physical therapy was consulted to assist with ambulation, and recommended home physical therapy, which was ordered and coordinated on discharge. Her epidural catheter was removed with the APMS service. Due to the patient's deconditioning and habitus she did have some intermittent desaturations requiring low flow nasal cannula. She underwent a desaturation study and was recommended to have home oxygen therapy. This was arranged prior to discharge with case management. At the time of discharge, the patient was tolerating soft diet, pain was well controlled with oral medications, ambulating, voiding without difficulty, passing flatus, and was hemodynamically stable. She was discharged with her DAVID drain in place to be removed on follow up. Patient Condition at Discharge: Stable Discharge Disposition: Home Health Home Oxygen Information Provided to the Patient: Patient given copy of Discharge Instructions Discharge Medications: Discharge Medication List as of 12/15/2017 5:22 PM START taking these medications OXYGEN, HOME THERAPY, 2 L/min by Nasal Cannula route as directed. 2LPN via Nasal Cannula with exertion and during sleep with oxygen concentrator with back up oxygen tank and conserving device for ambulation. Print RX, Disp-1 Units, R-0 Dx: 1. Nocturnal oxygen desaturation !! blood sugar diagnostic (FREESTYLE LITE STRIPS) test strip Use as instructed Normal, Disp-100 Strip, R-5 !! lancets (FREESTYLE LANCETS) 28 gauge misc 1 Stick three times daily. Normal, Disp-100 Each, R-5 docusate sodium (COLACE) 100 mg capsule Take 1 capsule by mouth twice daily. Print RX, Disp-40 capsule, R-0 Please take for constipation associated with narcotics - please discontinue if having diarrhea !! - Potential duplicate medications found. Please discuss with provider. CONTINUE these medications which have CHANGED glipiZIDE (GLUCOTROL) 10 mg tablet Take 1 in am before breakfast and 1 before evening meal. Med Update, Long-term Dx: 1. Uncontrolled type 2 diabetes mellitus without complication, without long-term current use of insulin (HCC) insulin glargine (BASAGLAR KWIKPEN U-100 INSULIN) 100 unit/mL (3 mL) inpn Inject 20 Units subcutaneously daily at bedtime. Med Update, Long-term Dx: 1. Screening for genitourinary condition 2. Renal mass 3. Morbid obesity (HCC) CONTINUE these medications which have NOT CHANGED exenatide microspheres (BYDUREON SUBCUTANEOUS) Inject subcutaneously once each week. Historical Med, Long-term ibuprofen (MOTRIN ORAL) Take 1 tablet by mouth as needed. 800 mg Historical Med cyclobenzaprine (FLEXERIL) 10 mg tablet Take 1 tablet by mouth three times daily as needed for Muscle Spasm. Med Update fluticasone (FLOVENT HFA) 110 mcg/actuation inhaler Inhale 1 Puff as instructed twice daily. Rinse your mouth after each use. Normal, Disp-1 Inhaler, R-0 !! blood sugar diagnostic (FREESTYLE LITE STRIPS) test strip Test blood sugar(s)3daily. Dx: diabetes type 2 uncontrolled.. Insulin: No, titrating medication Normal, Disp-100 Strip, R-3 Dx: 1. Uncontrolled type 2 diabetes mellitus without complication, without long-term current use of insulin (HCC) !! Lancets lancets Use as instructed up to 4 times daily Normal, Disp-120 Each, R-11 metFORMIN (GLUCOPHAGE) 1,000 mg tablet Take 1 tablet by mouth twice daily with meals. Normal, Disp-60 tablet, R-3 Blood-Glucose Meter (FREESTYLE LITE METER) monitoring kit As directed Normal, Disp-1 Each, R-0 albuterol HFA (PROVENTIL HFA, VENTOLIN HFA) 90 mcg/actuation inhaler Inhale 2 Puffs as instructed. Historical Med !! - Potential duplicate medications found. Please discuss with provider. STOP taking these medications oxyCODONE IR (ROXICODONE) 5 mg immediate release tablet Comments: Reason for Stopping: Future Appointments: Please follow-up as recommended by your provider. Electronically SIGNED by Licensed Independent Practitioner: sAhok Rodriguez MD / Lawson Conner MD HCG, QUANTITATIVE BL Collected: 12/11/2017 Status: F Source: STEGER 4:38 PM [facility] REPOSITORY TYPE CODE TESTS RESULT OUT OF REFERENCE UNITS RANGE LAB HCGQT <5.0 mU/mL HCG, Quantitative Bl <0.1 Result Comment: NEGATIVE Performed By: #### HCGQT #### [facility] [address] [place], [place] [address] PT ED Observed: 12/11/2017 Status: COMPLETED Source: STEGER 3:18 PM [facility] [place] REPOSITORY HNO ID: [id number] Author: Nancy (Rn) Maggie Service: Diabetes Education Author Type: Registered Nurse Type: Patient Education Filed: 12/11/2017 3:31 PM Note Text: DIABETES EDUCATION PROGRESS NOTE SERVICE DATE: 12/11/2017 SERVICE TIME: 1500 RECOMMENDATIONS: Freestyle Lite test strips (epic code: 71154) DISP: 1 box (100/box) w/ refill Freestyle lancets (epic code: 23290) DISP: 1 box (100/box) w/ refill Patient denies needing script for insulin, pen needles, Bydreon PATIENT HISTORY/ASSESSMENT: Patient in randomized study u300 study. Patient verbalizes she will not be in study upon discharge. CDE referral requested by Dr. Ramírez for hypoglycemia teaching. While in room, patient did verbalize she needs testing supplies when she leaves. Please see above Epic codes for needed items. Healthy You, Diabetes Blueprint, log book at bedside for resource. TOPIC(S): Survival Skills: Blood Glucose Monitoring Patient has a Free Style blood glucose monitor. Patient says she tests at least 2-3 times/day, Instructed on target blood sugars and when to call provider with abnormal readings. Medication Patient declines needing education about medications. Signs of Hypoglycemia and Hyperglycemia Reviewed signs and symptoms of hypoglycemia and treatment for the same (Rule of 15). Patient instructed to always carry a fast acting source of sugar with patient at all times. Patient instructed to call the doctor for 2 low blood sugars within one week. Highlighted material discussed in the DM booklet. EDUCATION: Cognitive ability: Alert and Oriented. Motivation to learn: Eager and Interested. Barriers to learning: None Family support: Unable to assess - Family not present Education Type: Individual instruction Written instruction - handouts Verbal instruction Response to education: States/Identifies. Education provided to: Patient and Family. Teachback method used. Time Spent (Minutes): 15 SIGNATURE: Nancy Serrano RN,CDE PATIENT NAME: Tess Hall DATE: December 11, 2017 TIME: 3:18 PM PAGER: [phone] PROGRESS Observed: 12/11/2017 Status: COMPLETED Source: STEGER 3:02 PM [facility] REPOSITORY [facility] ID: [id number] Author: Nevaeh RobertsRn) BHARGAVI Yanez Service: Nursing Author Type: Registered Nurse Type: Progress Notes Filed: 12/15/2017 3:53 PM Note Text: Glargine U300 StudyIRB #[id number] Patient Name: Tess Hall Hospital Admission Date: 12/09/2017 Date Enrolled: 12/11/2017 Consent Date: 12/11/2017 The patient was informed of the risks/benefits, study procedures, and alternatives to participation (not to participate), as outlined in the informed consent (version 4 - approval date 09/26/2017 expiration 09/25/2018). The inclusion and exclusion criteria, as well as medical history was reviewed and discussed. The patient has read and verbalizes understanding of the consent document. All questions have been answered. The patient voluntarily signed the informed consent document and all study procedures started after the consent form document was signed. A copy was provided to the patient. The patient qualified for participation by meeting all inclusion and exclusion criteria. Randomization Group:Narda Race: White Ht: 165.1 cm Wt: 151.1 kg BMI: 55.43 kg/m2 Duration DM Years: 5 Date of last diabetic teaching/education: more then 1yr. ago Admission Dx: Renal mass Primary Dx System: (Select all that apply) Other: Social Hx: Etoh: No Illicit drugs:No Smoking: Yes 1pk/day Home Rx: OAD+Insulin Short acting GLP-1 OAD Metformin: 2000 mg/day Sulfonylurea/glipizide 40mg/day Insulin Lantus 35-40 u/day Detemir na u/day NPH na u/day Regular na u/day 70/30 na u/day Aspart/Lispro/Glulisine na u/day Insulin TDD 35-40 u/day Short Acting GLP-1 Bydureon 2mg/week Labs Admission Date: 12/09/2017 Na: 138 K: 4.3 B BUN: 25 Cr: 0.63 GFR: >60 WBC: 17.61 Hgb: 11.6 HCT: 35.3 Randomization QI=056 HbA1C: 7.2% Date: 12/10/2017 PE Normal V.S. BP: 104/85 HR: 117 RR: 18 PLAN OF CARE Observed: 12/11/2017 Status: COMPLETED Source: STEGER 2:24 PM [facility] REPOSITORY [facility] ID: [id number] Author: Zeb Ramírez Service: Endocrinology Author Type: Physician Type: Plan of Care Filed: 12/11/2017 6:18 PM Note Text: IRB [id number] A Randomized Controlled Trial Comparing Glargine U300 and Glargine U100 for the Inpatient and Post-Hospital Discharge Management of Medicine and Surgery Patients with Type 2 Diabetes HISTORY Ms Tess Hall is a 37 year old female is enrolled in the above trial. Patient is randomized to the glargine U 300 arm. Already under our endocrine consult service History of diabetes medications: Prior to admission diabetes medications: Bydureon 2mg (once weekly on Fridays) Glipizide 20 mg BID Metformin 1000 mg BID Basalglar 30-40 units pm ? Current diabetes medications here in the hospital: Juan russ Patient and in the room Patient not yet eating, liquid diet and not even taking much of that PHYSICAL EXAM BP 105/65 Pulse 119 Temp (Src) 98.4 (Oral) Resp 17 SpO2 95% LMP 11/20/2017 Weight as of 12/02/2017 - 332 lb (150 kg) Patient in bed, finishing breathing treatment Component Latest Ref Rng AND Units 12/10/2017 12/11/2017 Glucose 74 - 99 mg/dL 158 (H) BUN 7 - 21 mg/dL 14 Creatinine 0.58 - 0.96 mg/dL 0.69 Sodium 136 - 144 mmol/L 134 (L) Potassium 3.7 - 5.1 mmol/L 3.8 Chloride 97 - 105 mmol/L 100 CO2 22 - 30 mmol/L 22 Anion Gap 9 - 18 mmol/L 12 Calcium 8.5 - 10.2 mg/dL 7.8 (L) eGFR- >60 eGFR-All Other Races . >60 Hemoglobin A1C 4.3 - 5.6 % 7.2 (H) Estimated Average Glucose mg/dL 160 ASSESSMENT/PLAN Type 2 diabetes They did not have further questions about the study Primary service informed Endocrine Consult service informed Nurse informed Fingerstick POC glucose check q ac and hs BG at randomization: 172 mg/dL test negative Glargine U 300, 26 units starting 6pm tomorrow Apidra 0 units with meals as not yet eating. Once started, hold if NPO, half dose if poor appetite Apidra usual scale (or study sliding scale #2) during mealtime Apidra usual scale (or study sliding scale #2) at bedtime Discontinue other diabetes medications Hypoglycemia protocol Diabetes teaching to be done in hospital if has not had this within the past year. Diabetes education consult placed and seen For discharge, does not qualify for outpatient arm of the study. Endocrine consult service to give recommendations May see us in clinic for follow-up if they wish May page me marcel for questions. Damon Ramírez MD, MPH December 11, 2017 6:18 PM Pager [phone] CONSULT PROG Observed: 12/11/2017 Status: COMPLETED Source: STEGER 9:06 AM [facility] [place] REPOSITORY HNO ID: [id number] Author: Melanie Blancas Service: Endocrinology Author Type: Nurse Practitioner Type: Consult Progress Note Filed: 12/11/2017 8:07 PM Note Text: DIABETES CARE TEAM NOTE SERVICE DATE: 12/11/2017 SERVICE TIME: 9:06 AM Subjective From original consult note on 12/10/2017 HPI: Ms. Tess Hall is a 37 year old female with a 5 year history of Diabetes Mellitus Type 2 hyperglycemia who was admitted on 12/09/2017, s/p open left partial nephrectomy 12/09/2017 Past medical history significant for HTN, HLD, left renal mass, and asthma. Patient does not exercise. Last HbA1c was 12.7%on 12/26/2015. She has a family history of diabetes in her mother. She is followed by PCP for her diabetes. DIABETIC COMPLICATIONS: None Pre-Admission DM Regimen: Preadmission oral agents: Exedrin4 (Bydureon) 2mg reconstituted pen (once weekly on Fridays) Glipizide 20 mg BID Metformin 1000 mg BID Preadmission insulin regimen:basalglar 30-40 units pm Self Monitoring Blood Glucose: Type of Monitor: Freestyle Frequency of Monitorin-3 times a day BG Values: 80-90-120mg/dL Hypoglycemia: Yes, Frequency: once times a week Time of Day in early am wakes up with low usually happen when takes her Bydureon and lantus Symptoms: Shakiness and Sweating Feel symptoms when BS is 40-<70 mg/dL INTERVAL HPI: No acute events overnight PERTINENT ROS: Constitutional: Feels well, no complaints Appetite:tolerating clears GI:No nausea, no vomitting, no diarrhea, no constipation Objective PHYSICAL EXAM: BP 105/59 Pulse 107 Temp 36.7 ?C (98.1 ?F) (Oral) Resp 17 LMP 11/20/2017 SpO2 97% There is no height or weight on file to calculate BMI. General Appearance: Appears well, A+O x 3 and In no apparent distress Affect: Pleasant and cooperative Eyes: Sclerae non-icteric Abdomen: Hypoactive bowel sounds Skin/Lipohypertrophy: no cyanosis noted Edema: none noted Respirations easy and unlabored Laboratory Results: Hemoglobin (g/dL) Date Value 12/11/2017 10.0 Hematocrit (%) Date Value 12/11/2017 30.4 WBC (k/uL) Date Value 12/11/2017 13.09 Platelet Count (k/uL) Date Value 12/11/2017 176 Potassium (mmol/L) Date Value 12/11/2017 3.8 Sodium (mmol/L) Date Value 12/11/2017 134 Creatinine (mg/dL) Date Value 12/11/2017 0.69 BUN (mg/dL) Date Value 12/11/2017 14 Glucose (mg/dL) Date Value 12/11/2017 158 PT INR (no units) Date Value 12/01/2017 <0.9 Lipids: No results found for: CHOL, HDL, LDL, TG Albumin (g/dL) Date Value 12/01/2017 3.5 (L) Bilirubin, Total (mg/dL) Date Value 12/01/2017 0.2 Alkaline Phosphatase (U/L) Date Value 12/01/2017 99 AST (U/L) Date Value 12/01/2017 12 (L) ALT (U/L) Date Value 12/01/2017 12 Protein, Total (g/dL) Date Value 12/01/2017 5.5 (L) No results found for: LVEF Hemoglobin A1C Date Value 12/10/2017 7.2 % 12/26/2015 12.7 % 01/29/2015 11.5 Diabetes Management in Hospital Hospital BG values or ranges: Date AM LUNCH DINNER HS 3AM 12/09/2017 181 137 186(H1)215 237(H2) 181 12/10/2017 172(h1) 167(H1) Lantus 10 u 164(1H) 156(1H) 12/11 154(1H) 172(1H) 165(2H) Lantus 14 u Other Pertinent Medications: Continuous Infusion NS at 150ml/hour / Epidural /JOINTER MACHINE pain pump Steroids: none Diet: Clear Liquids Tube Feeding: No Supplements: none Impression/Recommendations Patient with uncontrolled Diabetes Mellitus Type 2 hyperglycemia s/p open left partial nephrectomy 12/09/2017 whom we have been consulted for glycemic control. Diet advanced to clear liquids today. Fasting glucose slightly elevated. Will increase Lantus dose for today, move closer to PM dosing and change sliding scale to ACHS. RECOMMENDATIONS: ? Change Basal Insulin: Lantus 14 units 1600 ( home pm dosing) ? Hold Prandial Insulin: based on glucose trends ? Change Supplemental Sliding Scale: Humalog Program #1 ACHS ? Accuchecks: ACHS ? Recommend As per Unit Dietitian ? Check HbA1C to see if there was any preceding hyperglycemia. ? Consult CDE regarding: DM Education including likely noneTBD does insulin and oral at home 1:11 PM Addendum Glucose levels escalating slightly. Will change sliding scale to #2 AC and #1 HS. Melanie Blancas APRN.JOHNNY DM DISCHARGE PLAN: ? Likely on home oral agents + basal as labs allow ? Check blood sugars Three times a Day ? Diet: As per Unit Dietitian ? Exercise as prescribed by primary team ? Follow up with hard candy batch mixer and qc analyst as recommended. ? 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 ? Diabetes Care Team Hospital Discharge Help Line: [phone] SIGNATURE: Melanie Blancas APRN.FREIGHT TRAFFIC CONSULTANT PATIENT NAME: Tess Hall DATE: 12/11/2017 TIME: 9:12 AM PAGER/CONTACT #: [phone] [id number] Observed: 12/11/2017 Status: F Source: STEGER 8:08 AM [facility] REPOSITORY NAME : TESS HALL PID : [id number] : 1980 Gender : Female Race : ORD : Procedure Date : Dec 11 2017 08:08:05 Edit Date : Dec 16 2017 14:59:22 Diagnosis:SINUS TACHYCARDIA OTHERWISE NORMAL ECG Confirmed by JUAN ALBERTO BLACKMAN M.D. ([id number]) on 12/16/2017 2:31:35 PM Also confirmed by JUAN ALBERTO BLACKMAN M.D. ([id number]) on 12/16/2017 2:31:52 PM Ventricular Rate : 108 BPM Atrial Rate : 108 BPM P-R Interval : 136 ms QRS Duration : 86 ms Q-T Interval : 336 ms QTC Calculation(Bezet) : 450 ms P [place] : 28 degrees R [place] : 7 degrees T [place] : 20 degrees Test Reason : Location : 97 : G90 [id number] Overread By : JUAN ALBERTO BLACKMAN M.D. Edited By : JUAN ALBERTO BLACKMAN M.D. Referred By : , Acquired by : CRISPIN FLORES CONSULT PROG Observed: 12/11/2017 Status: COMPLETED Source: STEGER 8:05 AM [facility] REPOSITORY HNO ID: [id number] Author: Alexandra Crowell Service: Anesthesiology Author Type: Anesthesiologist Type: Consult Progress Note Filed: 12/11/2017 3:03 PM Note Text: APS EPIDURAL CATHETER PROGRESS NOTE SERVICE DATE: 12/11/2017 SERVICE TIME: 8:07 AM PRIMARY SERVICE: Urology Subjective INTERVAL HPI: Tess Hall is a 37 year old female who is POD #1 S/P Open LEFT Partial Nephrectomy Intraoperative ultrasound with interpretation Patient also has an IV JOINTER MACHINE: Yes; Hydromorphone (Dilaudid) 0.5 mg/ml Basal Rate: 0 mg/hour. Patient demand dose: 0.3 mg. Lockout interval: 6 minutes. IV Line Appears Intact: Yes Pain at Surgical Site: Yes, pt reports 7/10, states that pain control is improved from yesterday Condition of Surgical Site: Dressing intact Other Locations of Pain: Yes. Location: L hand at site of previously infiltrated IV, improved somewhat Pain Score at Rest: 7/10 Pain Score with Movement (cough, deep breathe, ambulation, etc): 10/10 Functional Status: Can cough AND deep breath adequately. Attempted to get up to sit on the side of the bed but limited by pain. Character: Achey Duration: consistent Radiation: No Relieved: Yes - IV Pain medications, PO Pain medications, JOINTER MACHINE bolus and Epidural bolus Patient Satisfied with Pain Control: no Overnight Events: Pain control improved overnight from previous night. PO oxycodone helping, but still feels that she needs the JOINTER MACHINE as she is intermittently nauseated Overnight Pain Interventions: none Diet: Clear liquid Objective ALLERGIES Allergen Reactions - Clindamycin Hives, Itching - Tylenol [Acetaminop* Hives, GI Upset Patient is Intubated and Sedated: No. Numbness?: no Weakness?: Yes. Location: improved from yesterday, still generalized, pt uncertain if she is just guarding due to pain and likely just effort dependant Nausea?: Yes. Therapy: changed prochlorperazine to first line for nausea, ondansetron as second line Vomitting?: No Pruritis?: No Back pain?: No Headache?: No Sedation?: No Confusion/Delirium?: No Other: none Epidural Location: Thoracic Epidural Catheter Placed: Day of surgery MEDICATIONS: I have interrogated the JOINTER MACHINE pump(s) for the correct settings and solution: Yes. EPIDURAL MEDICATIONS AND JOINTER MACHINE SETTINGS: Bupivacaine 0.1% Basal Rate: 5 mL/hr. Patient Demand Bolus: 6 mL. Lockout Interval: 30 Minutes. Patient Received: 4 Doses in the Last 6 Hours. Additional Medication(s) GIven: See Below Anticoagulation Therapy: none right now, contraindicated due to bleeding risk per surgery Last Dose Given: n/a Current hospital medications: lidocaine 5 % 1 Patch (LIDODERM) 1 Patch TRANSDERMAL DAILY lidocaine patch - REMOVE OTHER AT BEDTIME lidocaine - VERIFY PATCH OTHER q 8 H insulin glargine 10 Units pen (long acting) (LANTUS SOLOSTAR, BASAGLAR KWIKPEN) 10 Units SUBCUTANEOUS DAILY (2 PM) prochlorperazine 10 mg injection (COMPAZINE) 10 mg INTRAVENOUS q 6 H PRN nicotine 21 mg/24 hr 1 Patch (NICODERM) 1 Patch TRANSDERMAL DAILY nicotine -- REMOVE patch OTHER DAILY nicotine - verify patch OTHER q 8 H [MAR Hold due to Transfer] lactated ringers infusion 75 mL/hr INTRAVENOUS CONTINUOUS albuterol HFA 90 mcg/actuation 2 Puff (PROVENTIL HFA, VENTOLIN HFA) 2 Puff INHALATION q 6 H PRN cyclobenzaprine 10 mg tab(s) (FLEXERIL) 10 mg ORAL TID PRN docusate sodium 100 mg cap(s) (COLACE) 100 mg ORAL BID pantoprazole DR 40 mg tab(s) (PROTONIX) 40 mg ORAL DAILY (6 AM) dextrose 40 % 15 g 15 g ORAL PRN glucagon 1 mg injection (GLUCAGEN) 1 mg INTRAMUSCULAR PRN dextrose 50% in water 25 mL syringe 12.5 g INTRAVENOUS PRN NaCl 0.9% iv infusion 100 mL/hr INTRAVENOUS CONTINUOUS fentaNYL 50 mcg/mL 25-50 mcg injection (SUBLIMAZE) 25-50 mcg INTRAVENOUS q 2 H PRN ondansetron (PF) 4 mg injection (ZOFRAN) 4 mg INTRAVENOUS q 6 H PRN magnesium hydroxide 400 mg/5 mL 30 mL (MOM) 30 mL ORAL q 6 H PRN melatonin 3 mg tab(s) 3 mg ORAL DAILY (8 PM) diphenhydrAMINE 25-50 mg injection (BENADRYL) 25-50 mg INTRAVENOUS q 6 H PRN aluminum-magnesium hydroxide-simethicone 200-200-20 mg/5 mL 30 mL (MAALOX,MYLANTA,MAG-AL PLUS) 30 mL ORAL q 6 H PRN phenol 1 [place] (CHLORASEPTIC) 1 [place] MUCOUS MEMBRANE (TOPICAL MOUTH AND THROAT) q 2 H PRN insulin lispro injection (rapid acting) (HumaLOG) SUBCUTANEOUS q 6 H oxyCODONE IR 5 mg tab(s) (ROXICODONE) 5 mg ORAL q 4 H PRN bupivacaine epidural 0.1% in NaCl 0.9% 300 mL EPIDURAL CONTINUOUS mometasone 220 mcg (14 doses) 1 Puff inhaler (ASMANEX) 1 Puff INHALATION DAILY HYDROmorphone 0.5 mg/mL JOINTER MACHINE CLINICIAN DOSE 0.2-0.4 mg 0.2- 0.4 mg INTRAVENOUS (PACU) PRN HYDROmorphone JOINTER MACHINE 0.5 mg/mL in NaCl 0.9% 100 mL INTRAVENOUS CONTINUOUS PHYSICAL EXAM: 12/10/17 1929 12/10/17 2254 12/11/17 0339 12/11/17 0701 BP: 122/76 152/60 119/70 105/59 Pulse: 111 (!) 122 110 107 Resp: Temp: 36.8 ?C (98.2 ?F) 36.4 ?C (97.5 ?F) 37.4 ?C (99.3 ?F) 36.7 ?C (98.1 ?F) TempSrc: Oral Oral Oral Oral SpO2: 96% 94% 96% 97% NEUROLOGICAL: Sensory Exam: Abdomen: T6-L2 level on epidural on left to ice, covers incision and drain site. T6-L3 level on R side, without motor deficit on R. Motor Exam: LLE: 4/5 flexion/extension. Poor effort, pt reports that it worsens her abdominal pain. RLE: 4/5 flexion/extension. Again poor effort, pt reports that pain worsens with moving legs. AFFECT: Pt appears somewhat drowsy, but arousable and is alert and oriented x3 when aroused. GENERAL: Appears uncomfortable. RESPIRATORY EXAM: Respirations: Breathing appears normal Thoracostomy Tube: No GASTROINTESTINAL EXAM: Bowel Sounds: Present Abdominal exam: L side incision with dressing intact, trace serosanguinous discharge. LLQ drain in place with serosanguinous drainage. LAB RESULTS: Diagnostic tests reviewed for today's visit: Most recent labs and imaging results. APTT 24.0 12/01/2017 PT Sec 9.3 12/01/2017 PT INR <0.9 12/01/2017 Hemoglobin 10.7 12/10/2017 Hematocrit 32.6 12/10/2017 Platelet Count 201 12/10/2017 Creatinine 0.70 12/10/2017 BUN 20 12/10/2017 Assessment/Plan Patient is being seen for pain as described in HPI above. Pain control has improved somewhat since yesterday. She took the first dose of 10mg oxycodone and feels that this has improved her pain control. We can increase this to 10-15 PRN and see if we can get the JOINTER MACHINE off tomorrow. Has been having some nausea. Unsure if it is temporally related to oxycodone or to diet as pt took oxycodone and tried to eat some both within last hour. Will change first line antiemetic to prochlorperazine, make ondansetron first line as she is still experiencing nausea in spite of ondansetron dose within last hour. Assessment: Pain control suboptimal. Plan of Care: Continue epidural analgesia to promote comfort, mobility, and pulmonary toilet. Will continue Dilaudid IVPCA for now as pt remains nauseated, encouraged her to try PO oxycodone first, will reassess tomorrow morning. Prochlorperazine 10 mg IV q6h PRN first line for nausea/vomiting Ondansetron 4 mg q6h PRN second line for nausea/vomiting Increased PO oxycodone to 10-15mg q4h PRN Case to be discussed with APMS staff: Dr Crowell SIGNATURE: Hermes Recinos DO PATIENT NAME: Tess Hall DATE: December 11, 2017 TIME: 10:42 AM PAGER/CONTACT #: [phone] I have reviewed the progress note obtained and documented by the resident on the APS team and I personally participated in the campbell component. I also edited the resident note and did necessary corrections. I have discussed the assessment and plan with the acute pain team Alexandra Crowell MD MPH Staff Anesthesiologist Acute Pain Management [id number] PROGRESS Observed: 12/11/2017 Status: COMPLETED Source: STEGER 6:41 AM [facility] REPOSITORY O ID: [id number] Author: Heather Torres Service: Urology Author Type: Physician Type: Progress Notes Filed: 12/11/2017 9:38 AM Note Text: UROLOGY SERVICE PROGRESS NOTE PATIENT INFO: Tess Hall 37 year old DATE: 12/11/2017 S: Pain persists but slightly improved. No n/v. Still tachy w/ no cp/sob. Not OOB yet. No flatus. PAST MEDICAL HISTORY Diagnosis Date - Depression - DM2 (diabetes mellitus, type 2) (HCC) - HLD (hyperlipidemia) - Hx of acute pyelonephritis - Morbid obesity (HCC) - Reactive airway disease - Renal mass - Smoker Exam: Patient Vitals for the past 8 hrs: BP Temp Temp src Pulse Resp SpO2 12/11/17 0339 119/70 37.4 ?C (99.3 ?F) Oral 110 18 96 % 12/10/17 2254 152/60 36.4 ?C (97.5 ?F) Oral (!) 122 18 94 % Tmax: Temp (24hrs), Av.9 ?C (98.5 ?F), Min:36.4 ?C (97.5 ?F), Max:37.4 ?C (99.3 ?F) Intake/Output Summary (Last 24 hours) at 12/11/17 0641 Last data filed at 12/11/17 0600 Gross per 24 hour Intake 5378 ml Output 1450 ml Net 3928 ml UO: 1375cc Drains: 45cc DAVID General: lying in bed in no acute distress Lungs: even unlabored respirations Abdomen: obese, soft, approp tender w/o sophie/guarding, left flank inc dressing removed and murtaza CDI Genitourinary: serrano clear yellow urine Extremities: no LE edema, SCDs on Labs: Recent Labs 12/11/17 0334 12/10/17 0423 12/09/17 1612 WBC 13.09* 11.97* 17.61* HB 10.0* 10.7* 11.6 HCT 30.4* 32.6* 35.3* PLT 176 201 222 NA 134* 136 138 K 3.8 4.0 4.3 CHLOR 100 101 106* CO2 22 24 22 BUN 14 20 25* CREAT 0.69 0.70 0.63 GLUC 158* 181* 187* Current hospital medications: lidocaine 5 % 1 Patch (LIDODERM) 1 Patch TRANSDERMAL DAILY lidocaine patch - REMOVE OTHER AT BEDTIME lidocaine - VERIFY PATCH OTHER q 8 H insulin glargine 10 Units pen (long acting) (LANTUS SOLOSTAR, BASAGLAR KWIKPEN) 10 Units SUBCUTANEOUS DAILY (2 PM) prochlorperazine 10 mg injection (COMPAZINE) 10 mg INTRAVENOUS q 6 H PRN nicotine 21 mg/24 hr 1 Patch (NICODERM) 1 Patch TRANSDERMAL DAILY nicotine -- REMOVE patch OTHER DAILY nicotine - verify patch OTHER q 8 H [MAR Hold due to Transfer] lactated ringers infusion 75 mL/hr INTRAVENOUS CONTINUOUS albuterol HFA 90 mcg/actuation 2 Puff (PROVENTIL HFA, VENTOLIN HFA) 2 Puff INHALATION q 6 H PRN cyclobenzaprine 10 mg tab(s) (FLEXERIL) 10 mg ORAL TID PRN docusate sodium 100 mg cap(s) (COLACE) 100 mg ORAL BID pantoprazole DR 40 mg tab(s) (PROTONIX) 40 mg ORAL DAILY (6 AM) dextrose 40 % 15 g 15 g ORAL PRN glucagon 1 mg injection (GLUCAGEN) 1 mg INTRAMUSCULAR PRN dextrose 50% in water 25 mL syringe 12.5 g INTRAVENOUS PRN NaCl 0.9% iv infusion 100 mL/hr INTRAVENOUS CONTINUOUS fentaNYL 50 mcg/mL 25-50 mcg injection (SUBLIMAZE) 25-50 mcg INTRAVENOUS q 2 H PRN ondansetron (PF) 4 mg injection (ZOFRAN) 4 mg INTRAVENOUS q 6 H PRN magnesium hydroxide 400 mg/5 mL 30 mL (MOM) 30 mL ORAL q 6 H PRN melatonin 3 mg tab(s) 3 mg ORAL DAILY (8 PM) diphenhydrAMINE 25-50 mg injection (BENADRYL) 25-50 mg INTRAVENOUS q 6 H PRN aluminum-magnesium hydroxide-simethicone 200-200-20 mg/5 mL 30 mL (MAALOX,MYLANTA,MAG-AL PLUS) 30 mL ORAL q 6 H PRN phenol 1 [place] (CHLORASEPTIC) 1 [place] MUCOUS MEMBRANE (TOPICAL MOUTH AND THROAT) q 2 H PRN insulin lispro injection (rapid acting) (HumaLOG) SUBCUTANEOUS q 6 H oxyCODONE IR 5 mg tab(s) (ROXICODONE) 5 mg ORAL q 4 H PRN bupivacaine epidural 0.1% in NaCl 0.9% 300 mL EPIDURAL CONTINUOUS mometasone 220 mcg (14 doses) 1 Puff inhaler (ASMANEX) 1 Puff INHALATION DAILY HYDROmorphone 0.5 mg/mL JOINTER MACHINE CLINICIAN DOSE 0.2-0.4 mg 0.2- 0.4 mg INTRAVENOUS (PACU) PRN HYDROmorphone JOINTER MACHINE 0.5 mg/mL in NaCl 0.9% 100 mL INTRAVENOUS CONTINUOUS Imp/Plan: 37 year old female POD# 2?s/p open left partial nephrectomy ? 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 REPOSITORY TYPE CODE TESTS RESULT OUT OF REFERENCE UNITS RANGE LAB WBC 3.70-11.00 k/uL WBC High 13.09 LAB RBC 3.90-5.20 m/uL Low RBC 3.57 LAB HGB 11.5-15.5 g/dL Low Hemoglobin 10.0 LAB HCT 36.0-46.0 % Low Hematocrit 30.4 LAB MCV 80.0-100.0 fL MCV 85.2 LAB MCH 26.0-34.0 pG MCH 28.0 LAB MCHC 30.5-36.0 g/dL MCHC 32.9 LAB RDWCV 11.5-15.0 % RDW-CV 13.9 LAB PLTCT 150-400 k/uL Platelet Count 176 LAB MPV 9.0-12.7 fL MPV 9.8 LAB ANEUT % Neut% 79.6 LAB AANEUT 1.45-7.50 k/uL Abs Neut High 10.41 LAB ALYMP % Lymph% 10.8 LAB AALYMP 1.00-4.00 k/uL Abs Lymph 1.42 LAB AMONO % Martin% 9.0 LAB AAMONO <0.87 k/uL Abs Martin High 1.18 LAB AEOS % Eosin% 0.4 LAB AAEOS <0.46 k/uL Abs Eosin 0.05 LAB ABASO % Baso% 0.2 LAB AABASO <0.11 k/uL Abs Baso 0.03 LAB AUNRBC 0 /100 WBC NRBCs 0.0 LAB ABNRBC <0.01 k/uL Absolute nRBC <0.01 LAB DTYP DTYPE Auto Diff Performed By: #### CBCDIF, BMP #### [facility] [address] [place] [id number] BASIC METABOLIC PANL Collected: 12/11/2017 Status: F Source: STEGER 3:34 AM [facility] REPOSITORY TYPE CODE TESTS RESULT OUT OF REFERENCE UNITS RANGE LAB GLU 74-99 mg/dL High Glucose 158 Result Comment: The [place] Diabetes [employer] (ADA) provides guidance for cutoff values for fasting glucose and random glucose. The ADA defines fasting as no caloric intake for at least 8 hours. Fas ting plasma glucose results between 100 to 125 mg/dL indicate increased risk for diabetes (prediabetes). Fasting plasma glucose results greater than or equal to 126 mg/dL meet the criteria for diagnosis of diabetes. In the absence of unequivocal hyperglycemia, results should be confirmed by repeat testing. In a patient with classic symptoms of hyperglycemia or hyperglycemic crisis, random plasma glucose results greater than or equal to 200 mg/dL meet the criteria for diagnosis of diabetes. Reference: Standards of Medical Care in Diabetes 2016, [place] Diabetes Association. Diabetes Care. 2016.39(Suppl 1). LAB BUN 7-21 mg/dL BUN 14 LAB CRET 0.58-0.96 mg/dL Creatinine 0.69 LAB NA 136-144 mmol/L Sodium Low 134 LAB K 3.7-5.1 mmol/L Potassium 3.8 LAB CL 97-105 mmol/L Chloride 100 LAB CO2 22-30 mmol/L CO2 22 LAB AGAP 9-18 mmol/L Anion Gap 12 LAB CA 8.5-10.2 mg/dL Calcium, Low Total 7.8 LAB GFRAA eGFR- Amer. >60 LAB GFRNAA . eGFR-All Other Races >60 Result Comment: eGFR (Estimated GFR) Units of measure: mL/min/1.73 meters squared eGFR is derived from the reexpressed MDRD Study equation using the following parameters: serum creatinine, age, gender and race. The creatinine assay has been calibrated to be traceable to IDMS. An eGFR <60 mL/min/1.73m2 for >3 months is consistent with chronic kidney disease. Refer to KDOQI guidelines for clinical interpretation. In patients with unstable renal function, e.g. those with acute kidney injury, the eGFR may not accurately reflect actual GFR. Performed By: #### CBCDIF, BMP #### [facility] [address] [place], [place] [address] CASE MGT INIT Observed: 12/10/2017 Status: COMPLETED Source: ALAN [place] 3:42 PM 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 No Advance Directive: Current Advance Directive: Health Care Power of Heater Room Helper In Chart: Yes Up To Date and Valid: Yes Health Literacy: 1. How often do you need to have someone help you when you read instructions, pamphlets, or other written material from your doctor or pharmacy? Rarely - 2 2. How confident are you filling out medical forms by yourself? Quite a bit - 2 If Patient scores > 3 on either question, the following interventions were put into place: Use of plain language and active listening with Patient and family FUNCTIONAL AND COGNITIVE/BEHAVIORAL PRIOR TO ADMISSION: Baseline Mental Status: Alert AND Oriented, Person, Place , Time and Situation Functional Status: Independent Does Patient Currently Receive Any Community Services or Home Care? None Equipment Prior to Admission: None Has the Patient Been in a Detention Facility in the Past 30 days? No SOCIAL: Living Arrangement: Home Lives With: Spouse Financial Resources: Unemployed Primary Contact: Extended Emergency Contact Information Primary Emergency Contact: Sary Chiu Mobile Relation: Mother Supportive: Yes Other Important Patient Contacts: None Caregiver Assessment: Caregiver is ready, willing and able to meet the patient's needs as recommended by the inter-professional team? No Caregiver Needed Patient's transition needs and plan for meeting these needs: Pt is independent with self care. Does the patient have an acute stroke diagnosis, or has the patient had a stroke during this admission? No Medication Adherence: I am convinced of the importance of my prescription medication: Agree mostly - 0 I worry that my prescription medication will do more harm than good to me Disagree mostly - 0 I feel financially burdened by my [id number] expenses for my prescription medication: Disagree mostly -0 Patient is categorized as low risk < 2 Are you interested in bedside delivery of your medications? Yes Food Concerns: In the Last Month, Have You had Trouble Getting Food? No trouble getting food During the Last Month, Have You Worried Whether Your Food Would Run Out Before You Had Enough Money to Buy More? No Is the Patient Psychosocially Complex? No ASSESSMENT AND PLAN: Medical Needs: 2 or more chronic diseases Psychosocial Needs: None FREEDOM OF CHOICE EXPLAINED: N/A POTENTIAL TRANSITION PLANS No Services Indicated Chart reviewed and met with pt at bedside. Pt is alert and oriented, able to communicate needs. Pt is independent with all care needs. No skilled needs identified. Plan is dc home when medically cleared. Please contact CM if needs arise. SIGNATURE: SUKH Pyle, M.Jacobo, [facility] PATIENT NAME: Tess Hall DATE: December 10, 2017 TIME: 3:42 PM PAGER/CONTACT #: [phone] CONSULT PROG Observed: 12/10/2017 Status: COMPLETED Source: STEGER 12:51 PM [facility] REPOSITORY HNO ID: [id number] Author: Hermes Recinos Service: Anesthesiology Author Type: Resident Type: Consult Progress Note Filed: 12/10/2017 1:31 PM Note Text: Attestation signed by Shamika Marquez at 12/10/2017 1:47 PM Patient seen and examined at bedside I have reviewed the progress note obtained and documented by the resident on the APMS team and made necessary changes. I have discussed the assessment and plan with the patient, family, and acute pain team, see above note for the details of the analgesic plan. Continue the epidural infusion at the same rate, as well as other adjuvant meds. No apparent major epidural complications. Will reassess tomorrow for any necessary changes. Shamika Marquez MD Acute Pain Management Staff Anesthesiologist Pager: [phone] APS EPIDURAL CATHETER PROGRESS NOTE SERVICE DATE: 12/10/2017 SERVICE TIME: 12:51 PM PRIMARY SERVICE: Urology Subjective INTERVAL HPI: Tess Hall is a 37 year old female who is POD #1 S/P Open LEFT Partial Nephrectomy Intraoperative ultrasound with interpretation Patient also has an IV JOINTER MACHINE: Yes; Hydromorphone (Dilaudid) 0.5 mg/ml Basal Rate: 0 mg/hour. Patient demand dose: 0.3 mg. Lockout interval: 6 minutes. IV Line Appears Intact: Yes Pain at Surgical Site: Yes, dull ache Condition of Surgical Site: Dressing intact with minimal serosanguinous drainage Other Locations of Pain: Yes. Location: L hand at site of previously infiltrated IV Pain Score at Rest: 10 Pain Score with Movement (cough, deep breathe, ambulation, etc): 10 Functional Status: Can cough AND deep breath adequately. Attempted to get up to sit on the side of the bed but limited by pain. Character: unable to describe pain Duration: consistent Radiation: No Relieved: Yes - IV Pain medications, PO Pain medications, JOINTER MACHINE bolus and Epidural bolus Patient Satisfied with Pain Control: No Overnight Events: Poor pain control initially Overnight Pain Interventions: Epidural bolus Diet: Ice chips and meds only Objective ALLERGIES Allergen Reactions - Clindamycin Hives, Itching - Tylenol [Acetaminop* Hives, GI Upset Patient is Intubated and Sedated: No. Numbness?: No Weakness?: Yes. Location: reports diffuse weakness, believes this is due to pain, sitting in hospital bed Nausea?: Yes. Therapy: Added prochlorperazine, already received ondansetron about 3 hours ago Vomitting?: No Pruritis?: No Back pain?: No Headache?: No Sedation?: No Confusion/Delirium?: No Other: none Epidural Location: Thoracic Epidural Catheter Placed: Day of surgery MEDICATIONS: I have interrogated the JOINTER MACHINE pump(s) for the correct settings and solution: Yes. EPIDURAL MEDICATIONS AND JOINTER MACHINE SETTINGS: Bupivacaine 0.1% Basal Rate: 5 mL/hr. Patient Demand Bolus: 6 mL. Lockout Interval: 30 Minutes. Patient Received: 4 Doses in the Last 6 Hours. Additional Medication(s) GIven: See Below Anticoagulation Therapy: none right now, contraindicated due to bleeding risk per surgery Last Dose Given: n/a Current hospital medications: lidocaine 5 % 1 Patch (LIDODERM) 1 Patch TRANSDERMAL DAILY lidocaine patch - REMOVE OTHER AT BEDTIME lidocaine - VERIFY PATCH OTHER q 8 H insulin glargine 10 Units pen (long acting) (LANTUS SOLOSTAR, BASAGLAR KWIKPEN) 10 Units SUBCUTANEOUS DAILY (2 PM) [MAR Hold due to Transfer] lactated ringers infusion 75 mL/hr INTRAVENOUS CONTINUOUS albuterol HFA 90 mcg/actuation 2 Puff (PROVENTIL HFA, VENTOLIN HFA) 2 Puff INHALATION q 6 H PRN cyclobenzaprine 10 mg tab(s) (FLEXERIL) 10 mg ORAL TID PRN docusate sodium 100 mg cap(s) (COLACE) 100 mg ORAL BID pantoprazole DR 40 mg tab(s) (PROTONIX) 40 mg ORAL DAILY (6 AM) dextrose 40 % 15 g 15 g ORAL PRN glucagon 1 mg injection (GLUCAGEN) 1 mg INTRAMUSCULAR PRN dextrose 50% in water 25 mL syringe 12.5 g INTRAVENOUS PRN NaCl 0.9% iv infusion 150 mL/hr INTRAVENOUS CONTINUOUS fentaNYL 50 mcg/mL 25-50 mcg injection (SUBLIMAZE) 25-50 mcg INTRAVENOUS q 2 H PRN ondansetron (PF) 4 mg injection (ZOFRAN) 4 mg INTRAVENOUS q 6 H PRN magnesium hydroxide 400 mg/5 mL 30 mL (MOM) 30 mL ORAL q 6 H PRN melatonin 3 mg tab(s) 3 mg ORAL DAILY (8 PM) diphenhydrAMINE 25-50 mg injection (BENADRYL) 25-50 mg INTRAVENOUS q 6 H PRN aluminum-magnesium hydroxide-simethicone 200-200-20 mg/5 mL 30 mL (MAALOX,MYLANTA,MAG-AL PLUS) 30 mL ORAL q 6 H PRN phenol 1 [place] (CHLORASEPTIC) 1 [place] MUCOUS MEMBRANE (TOPICAL MOUTH AND THROAT) q 2 H PRN insulin lispro injection (rapid acting) (HumaLOG) SUBCUTANEOUS q 6 H oxyCODONE IR 5 mg tab(s) (ROXICODONE) 5 mg ORAL q 4 H PRN bupivacaine epidural 0.1% in NaCl 0.9% 300 mL EPIDURAL CONTINUOUS mometasone 220 mcg (14 doses) 1 Puff inhaler (ASMANEX) 1 Puff INHALATION DAILY HYDROmorphone 0.5 mg/mL JOINTER MACHINE CLINICIAN DOSE 0.2-0.4 mg 0.2- 0.4 mg INTRAVENOUS (PACU) PRN HYDROmorphone JOINTER MACHINE 0.5 mg/mL in NaCl 0.9% 100 mL INTRAVENOUS CONTINUOUS PHYSICAL EXAM: Patient Vitals for the past 4 hrs: BP Temp Temp src Pulse Resp SpO2 12/10/17 1221 103/71 37 ?C (98.6 ?F) Oral 114 16 100 % 12/10/17 1000 - - - - 16 98 % NEUROLOGICAL: Sensory Exam: Abdomen: T6-L2 level on epidural on left to ice, covers incision and drain site. T6-L3 level on R side, without motor deficit on R. Motor Exam: LLE: 4/5 flexion/extension. Poor effort, pt reports that it worsens her abdominal pain. RLE: 4/5 flexion/extension. Again poor effort, pt reports that pain worsens with moving legs. AFFECT: Pt appears somewhat drowsy, but arousable and is alert and oriented x3 when aroused. GENERAL: Appears uncomfortable. RESPIRATORY EXAM: Respirations: Breathing appears normal Thoracostomy Tube: No GASTROINTESTINAL EXAM: Bowel Sounds: Present Abdominal exam: L side incision with dressing intact, trace serosanguinous discharge. LLQ drain in place with serosanguinous drainage. LAB RESULTS: Diagnostic tests reviewed for today's visit: Most recent labs and imaging results. APTT 24.0 12/01/2017 PT Sec 9.3 12/01/2017 PT INR <0.9 12/01/2017 Hemoglobin 10.7 12/10/2017 Hematocrit 32.6 12/10/2017 Platelet Count 201 12/10/2017 Creatinine 0.70 12/10/2017 BUN 20 12/10/2017 Assessment/Plan Patient is being seen for pain as described in HPI above. Pt c/o 10/10 pain that has worsened into this afternoon. PRN oxycodone dose was being held until nausea was addressed. Pt seen at bedside and she had only pushed her dilaudid JOINTER MACHINE bolus request button once in the past 4 hours. It appears that she had been pushing the epidural bolus button multiple times attempting to receive both epidural and JOINTER MACHINE boluses. Applied tape to the handle of her JOINTER MACHINE button and instructed her to insure that she is pushing each button separately so she is optimizing her pain regimen as ordered. Also encouraged her to take her PO oxycodone and added prochlorperazine for nausea as second line. Assessment: Pain control suboptimal. Nausea.. Plan of Care: Continue epidural analgesia to promote comfort, mobility, and pulmonary toilet. Continue adjunctive therapy as needed. Intervention as noted above, encouraging use of currently prescribed regimen and addition of prochlorperazine for nausea as second line. Case to be discussed with APMS staff: Dr Marquez SIGNATURE: Hermes Recinos DO PATIENT NAME: Tess Hall DATE: December 10, 2017 TIME: 12:51 PM PAGER/CONTACT #: [phone] CONSULT Observed: 12/10/2017 Status: COMPLETED Source: STEGER 8:44 AM [facility] REPOSITORY HNO ID: [id number] Author: Ligia Briscoe Service: Endocrinology Author Type: Nurse Practitioner Type: Consults Filed: 12/10/2017 5:59 PM Note Text: INITIAL CONSULT ENDOCRINOLOGY SERVICE DATE: 12/10/2017 SERVICE TIME: 8:44 AM Requesting Provider: Heather Torres Opinion/Advice Regarding: Management of Diabetes Mellitus Type 2 hyperglycemia Service: DCT (Diabetes Care Team) Subjective HPI: Ms. Tess Hall is a 37 year old female with a 5year history of Diabetes Mellitus Type 2 hyperglycemia who was admitted on 12/09/2017, s/p open left partial nephrectomy 12/09/2017 Past medical history significant for HTN, HLD, left renal mass, and asthma. Patient does not exercise. Last HbA1c was 12.7%on 12/26/2015. She has a family history of diabetes in her mother. She is followed by PCP for her diabetes. DIABETIC COMPLICATIONS: None Pre-Admission DM Regimen: Preadmission oral agents: Exedrin4 (Bydureon) 2mg reconstituted pen (once weekly on Fridays) Glipizide 20 mg BID Metformin 1000 mg BID Preadmission insulin regimen:basalglar 30-40 units pm Self Monitoring Blood Glucose: Type of Monitor: Freestyle Frequency of Monitorin-3 times a day BG Values: 80-90-120mg/dL Hypoglycemia: Yes, Frequency: once times a week Time of Day in early am wakes up with low usually happen when takes her Bydureon and lantus Symptoms: Shakiness and Sweating Feel symptoms when BS is 40-<70 mg/dL PAST MEDICAL HISTORY Diagnosis Date - Depression - DM2 (diabetes mellitus, type 2) (HCC) - HLD (hyperlipidemia) - Hx of acute pyelonephritis - Morbid obesity (HCC) - Reactive airway disease - Renal mass - Smoker PAST SURGICAL HISTORY Procedure Laterality Date - SECTION HX 2006 - TUBAL LIGATION HX 2006 FAMILY HISTORY Problem Relation Age of Onset - Blindness Maternal Grandmother Social History Substance Use Topics - Smoking status: Current Every Day Smoker Packs/day: 1.00 Types: Cigarettes - Smokeless tobacco: Never Used - Alcohol use No MEDICATIONS: Prescriptions Prior to Admission: insulin glargine (BASAGLAR KWIKPEN U-100 INSULIN) 100 unit/mL (3 mL) inpn Inject 35-40 Units subcutaneously daily at bedtime. Disp: Rfl: 12/08/2017 at 2100 fluticasone (FLOVENT HFA) 110 mcg/actuation inhaler Inhale 1 Puff as instructed twice daily. Rinse your mouth after each use. Disp: 1 Inhaler Rfl: 0 12/08/2017 at Unknown time glipiZIDE (GLUCOTROL) 10 mg tablet Take 2 in am before breakfast and 2 before evening meal. Disp: Rfl: 12/08/2017 at Unknown time metFORMIN (GLUCOPHAGE) 1,000 mg tablet Take 1 tablet by mouth twice daily with meals. Disp: 60 tablet Rfl: 3 12/08/2017 at Unknown time albuterol HFA (PROVENTIL HFA, VENTOLIN HFA) 90 mcg/actuation inhaler Inhale 2 Puffs as instructed. Disp: Rfl: 12/08/2017 at 2300 exenatide microspheres (BYDUREON SUBCUTANEOUS) Inject subcutaneously once each week. Disp: Rfl: 11/27/2017 ibuprofen (MOTRIN ORAL) Take 1 tablet by mouth as needed. 800 mg Disp: Rfl: 12/01/2017 cyclobenzaprine (FLEXERIL) 10 mg tablet Take 1 tablet by mouth three times daily as needed for Muscle Spasm. Disp: Rfl: none recent blood sugar diagnostic (FREESTYLE LITE STRIPS) test strip Test blood sugar(s)3daily. Dx: diabetes type 2 uncontrolled.. Insulin: No, titrating medication Disp: 100 Strip Rfl: 3 Taking Lancets lancets Use as instructed up to 4 times daily Disp: 120 Each Rfl: 11 Taking Blood-Glucose Meter (FREESTYLE LITE METER) monitoring kit As directed Disp: 1 Each Rfl: 0 Taking Current hospital medications: lidocaine 5 % 1 Patch (LIDODERM) 1 Patch TRANSDERMAL DAILY lidocaine patch - REMOVE OTHER AT BEDTIME lidocaine - VERIFY PATCH OTHER q 8 H [MAR Hold due to Transfer] lactated ringers infusion 75 mL/hr INTRAVENOUS CONTINUOUS albuterol HFA 90 mcg/actuation 2 Puff (PROVENTIL HFA, VENTOLIN HFA) 2 Puff INHALATION q 6 H PRN cyclobenzaprine 10 mg tab(s) (FLEXERIL) 10 mg ORAL TID PRN docusate sodium 100 mg cap(s) (COLACE) 100 mg ORAL BID pantoprazole DR 40 mg tab(s) (PROTONIX) 40 mg ORAL DAILY (6 AM) dextrose 40 % 15 g 15 g ORAL PRN glucagon 1 mg injection (GLUCAGEN) 1 mg INTRAMUSCULAR PRN dextrose 50% in water 25 mL syringe 12.5 g INTRAVENOUS PRN NaCl 0.9% iv infusion 150 mL/hr INTRAVENOUS CONTINUOUS fentaNYL 50 mcg/mL 25-50 mcg injection (SUBLIMAZE) 25-50 mcg INTRAVENOUS q 2 H PRN ondansetron (PF) 4 mg injection (ZOFRAN) 4 mg INTRAVENOUS q 6 H PRN magnesium hydroxide 400 mg/5 mL 30 mL (MOM) 30 mL ORAL q 6 H PRN melatonin 3 mg tab(s) 3 mg ORAL DAILY (8 PM) diphenhydrAMINE 25-50 mg injection (BENADRYL) 25-50 mg INTRAVENOUS q 6 H PRN aluminum-magnesium hydroxide-simethicone 200-200-20 mg/5 mL 30 mL (MAALOX,MYLANTA,MAG-AL PLUS) 30 mL ORAL q 6 H PRN phenol 1 [place] (CHLORASEPTIC) 1 [place] MUCOUS MEMBRANE (TOPICAL MOUTH AND THROAT) q 2 H PRN insulin lispro injection (rapid acting) (HumaLOG) SUBCUTANEOUS q 6 H oxyCODONE IR 5 mg tab(s) (ROXICODONE) 5 mg ORAL q 4 H PRN bupivacaine epidural 0.1% in NaCl 0.9% 300 mL EPIDURAL CONTINUOUS mometasone 220 mcg (14 doses) 1 Puff inhaler (ASMANEX) 1 Puff INHALATION DAILY HYDROmorphone 0.5 mg/mL JOINTER MACHINE CLINICIAN DOSE 0.2-0.4 mg 0.2- 0.4 mg INTRAVENOUS (PACU) PRN HYDROmorphone JOINTER MACHINE 0.5 mg/mL in NaCl 0.9% 100 mL INTRAVENOUS CONTINUOUS ALLERGIES Allergen Reactions - Clindamycin Hives, Itching - Tylenol [Acetaminop* Hives, GI Upset COMPLETE REVIEW OF SYSTEMS: WEIGHT: Increased 15 lb. EYES: Normal HYDRATION: No polydypsia or thirst CARDIAC: No chest pain, dyspnea, palpitations or edema RESPIRATORY: Negative for cough, wheezing or shortness of breath GI: no nausea, fullness, vomiting, diarrhea, constipation, GI bleeding or heartburn : no dysuria, frequency, hesitancy, hematuria, polyuria or nocturia SKIN: normal MUSCULOSKELETAL: No joint pain, stiffness, swelling, cramping or weakness NERVOUS SYSTEM: no numbness, paresthesias, weakness, cramping, burning or dizziness ALL OTHER SYSTEMS: left renal mass Last Eye Exam: years a go Last Podiatry Exam: n/A Objective PHYSICAL EXAM: BP 107/64 Pulse 106 Temp 37.2 ?C (99 ?F) (Oral) Resp 16 LMP 11/20/2017 SpO2 98% There is no height or weight on file to calculate BMI. Appearance: alert, very sleepy hard to keep her awake well- hydrated, well nourished. Eyes: conjunctiva and sclera normal Neck: Supple, Heart: RRR without murmur, gallop, or rubs. No ectopy Lungs clear to auscultation/ diminished Abdomen bowel sounds obese Extremities: No deformities, edema, skin discoloration, Neuro: sleepy, , alert, No involuntary motions. Feet: Shoes and socks removed, No deformities, ulcers, calluses, normal distal pulses Skin: Color, texture, turgor normal. Serrano catheter Laboratory Results: Hemoglobin (g/dL) Date Value 12/10/2017 10.7 Hematocrit (%) Date Value 12/10/2017 32.6 WBC (k/uL) Date Value 12/10/2017 11.97 Platelet Count (k/uL) Date Value 12/10/2017 201 Potassium (mmol/L) Date Value 12/10/2017 4.0 Sodium (mmol/L) Date Value 12/10/2017 136 Creatinine (mg/dL) Date Value 12/10/2017 0.70 BUN (mg/dL) Date Value 12/10/2017 20 Glucose (mg/dL) Date Value 12/10/2017 181 PT INR (no units) Date Value 12/01/2017 <0.9 Lipids: No results found for: CHOL, HDL, LDL, TG Albumin (g/dL) Date Value 12/01/2017 3.5 (L) Bilirubin, Total (mg/dL) Date Value 12/01/2017 0.2 Alkaline Phosphatase (U/L) Date Value 12/01/2017 99 AST (U/L) Date Value 12/01/2017 12 (L) ALT (U/L) Date Value 12/01/2017 12 Protein, Total (g/dL) Date Value 12/01/2017 5.5 (L) No results found for: LVEF Hemoglobin A1C Date Value 12/26/2015 12.7 % 01/29/2015 11.5 Diabetes Management in Hospital Hospital BG values or ranges: Date AM LUNCH DINNER HS 3AM 12/09/2017 181 137 186(H1)215 237(H2) 181 12/10/2017 172(h1) 167(H1) Lantus 10 u 164 Diabetes Management Prior to the Consultation/HPI: SSC Humlog #1 Q 6 hours Other Pertinent Medications: Continuous Infusion NS at 150ml/hour / Epidural /JOINTER MACHINE pain pump Steroids: none Diet: NPO except popsicles/sips of clear Tube Feeding: No Supplements: none Impression/Recommendations Patient with uncontrolled Diabetes Mellitus Type 2 hyperglycemia s/p open left partial nephrectomy 12/09/2017 whom we have been consulted for glycemic control. BG high on only SSI, NPO for now. Will add basal to help with BG globally. RECOMMENDATIONS: ? Start Basal Insulin: Lantus 10 units 2pm ( home pm dosing) ? Hold Prandial Insulin: NPO ? Supplemental Sliding Scale: Humalog Program #2 Q 6 hours then change to AC AND HS( when starts diet) ? Accuchecks: Q 6 hours then change to AC/HS when starts diet ? Recommend As per Unit Dietitian ? Check HbA1C to see if there was any preceding hyperglycemia. ? Consult CDE regarding: DM Education including likely noneTBD does insulin and oral at home DM DISCHARGE PLAN: ? Likely on home oral agents + basal as labs allow ? Check blood sugars Three times a Day ? Diet: As per Unit Dietitian ? Exercise as prescribed by primary team ? Follow up with hard candy batch mixer and qc analyst as recommended. ? 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 ? Diabetes Care Team Hospital Discharge Help Line: [phone] SIGNATURE: Ligia Briscoe APRN.CNP PATIENT NAME: Tess Hall DATE: December 10, 2017 TIME: 8:44 AM PAGER/CONTACT #: [phone] PROGRESS Observed: 12/10/2017 Status: COMPLETED Source: STEGER 7:14 AM [facility] [place] REPOSITORY O ID: [id number] Author: Heather Torres Service: Urology Author Type: Physician Type: Progress Notes Filed: 12/10/2017 7:37 AM Note Text: UROLOGY SERVICE PROGRESS NOTE PATIENT INFO: Tess Hall 37 year old DATE: 12/10/2017 S: Tachycardic overnight w/ poor pain control. Somewhat improved this AM. Not much PO intake. No n/v. No cp/sob. On bedrest. PAST MEDICAL HISTORY Diagnosis Date - Depression - DM2 (diabetes mellitus, type 2) (HCC) - HLD (hyperlipidemia) - Hx of acute pyelonephritis - Morbid obesity (HCC) - Reactive airway disease - Renal mass - Smoker Exam: Patient Vitals for the past 8 hrs: BP Temp Temp src Pulse Resp SpO2 12/10/17 0348 - 37.3 ?C (99.1 ?F) - - - - 12/10/17 0320 105/83 37.2 ?C (99 ?F) Oral 114 20 98 % 12/10/17 0059 106/68 37.2 ?C (99 ?F) Oral 115 22 95 % Tmax: Temp (24hrs), Av.9 ?C (98.4 ?F), Min:36.4 ?C (97.5 ?F), Max:37.3 ?C (99.1 ?F) Intake/Output Summary (Last 24 hours) at 12/10/17 0714 Last data filed at 12/10/17 0637 Gross per 24 hour Intake 3265 ml Output 1915 ml Net 1350 ml UO: 1010 Drains: 95 General: lying in bed in no acute distress Lungs: even unlabored respirations Abdomen: obese, soft, approp tender w/o sophie/guarding, left flank inc w/ clean dry primipore dressing Genitourinary: serrano clear yellow urine Extremities: no LE edema, SCDs on Labs: Recent Labs 12/10/17 0423 12/09/17 1612 WBC 11.97* 17.61* HB 10.7* 11.6 HCT 32.6* 35.3* PLT 201 222 NA 136 138 K 4.0 4.3 CHLOR 101 106* CO2 24 22 BUN 20 25* CREAT 0.70 0.63 GLUC 181* 187* Current hospital medications: [MAR Hold due to Transfer] lactated ringers infusion 75 mL/hr INTRAVENOUS CONTINUOUS albuterol HFA 90 mcg/actuation 2 Puff (PROVENTIL HFA, VENTOLIN HFA) 2 Puff INHALATION q 6 H PRN cyclobenzaprine 10 mg tab(s) (FLEXERIL) 10 mg ORAL TID PRN ceFAZolin 3 g in D5W 100 mL (ANCEF) 3 g INTRAVENOUS q 8 H docusate sodium 100 mg cap(s) (COLACE) 100 mg ORAL BID pantoprazole [address] 40 mg tab(s) (PROTONIX) 40 mg ORAL DAILY (6 AM) dextrose 40 % 15 g 15 g ORAL PRN glucagon 1 mg injection (GLUCAGEN) 1 mg INTRAMUSCULAR PRN dextrose 50% in water 25 mL syringe 12.5 g INTRAVENOUS PRN NaCl 0.9% iv infusion 150 mL/hr INTRAVENOUS CONTINUOUS fentaNYL 50 mcg/mL 25-50 mcg injection (SUBLIMAZE) 25-50 mcg INTRAVENOUS q 2 H PRN ondansetron (PF) 4 mg injection (ZOFRAN) 4 mg INTRAVENOUS q 6 H PRN magnesium hydroxide 400 mg/5 mL 30 mL (MOM) 30 mL ORAL q 6 H PRN melatonin 3 mg tab(s) 3 mg ORAL DAILY (8 PM) diphenhydrAMINE 25-50 mg injection (BENADRYL) 25-50 mg INTRAVENOUS q 6 H PRN aluminum-magnesium hydroxide-simethicone 200-200-20 mg/5 mL 30 mL (MAALOX,MYLANTA,MAG-AL PLUS) 30 mL ORAL q 6 H PRN phenol 1 Min[place] (CHLORASEPTIC) 1 [place] MUCOUS MEMBRANE (TOPICAL MOUTH AND THROAT) q 2 H PRN insulin lispro injection (rapid acting) (HumaLOG) SUBCUTANEOUS q 6 H oxyCODONE IR 5 mg tab(s) (ROXICODONE) 5 mg ORAL q 4 H PRN bupivacaine epidural 0.1% in NaCl 0.9% 300 mL EPIDURAL CONTINUOUS mometasone 220 mcg (14 doses) 1 Puff inhaler (ASMANEX) 1 Puff INHALATION DAILY HYDROmorphone 0.5 mg/mL JOINTER MACHINE CLINICIAN DOSE 0.2-0.4 mg 0.2- 0.4 mg INTRAVENOUS (PACU) PRN HYDROmorphone JOINTER MACHINE 0.5 mg/mL in NaCl 0.9% 100 mL INTRAVENOUS CONTINUOUS Imp/Plan: 37 year old female POD# 1 s/p open left partial nephrectomy ? - Diet - sips of clears - Activity - bedrest for now - DVT prophylaxis - PAS Stockings on and Pharmacologic DVT prophylaxis contraindicated due to bleeding risk - Antibiotics - ancef perioperative - Secondary Dx and Complications - - T2DM: ISS and accuchecks - morbid obesity 55: monitor - smoker active: smoking cessation - asthma: inhaler (asmanex) PRN, resp therapy consult - left renal mass, suspected malignancy, final pathology pending - pain: epidural and fentanyl JOINTER MACHINE - poor pain ctrl, APMS input appreciated - GERD: PPI - Discharge planning - pending course The above plan was discussed with the staff urologist of record. Signature: Ashok Rodriguez MD Pager: [phone] personal, [phone] after hours/weekends Date of service: 12/10/2017 As above AF, VSS, pulse about 110 Pain management main issue Abd soft, NT W 12.0, hg 10.7, SCr 0.70 UO 110 last 14-16 hours Good ox sat prog well, hilar PN Bedrest today, IS, Move legs in bed, I reviewed all with patient and Overall doing well Heather Torres MD CBC AND DIFFERENTIAL Collected: 12/10/2017 Status: F Source: STEGER 4:23 AM [facility] REPOSITORY TYPE CODE TESTS RESULT OUT OF REFERENCE UNITS RANGE LAB WBC 3.70-11.00 k/uL WBC High 11.97 LAB RBC 3.90-5.20 m/uL RBC 3.90 LAB HGB 11.5-15.5 g/dL Low Hemoglobin 10.7 LAB HCT 36.0-46.0 % Low Hematocrit 32.6 LAB MCV 80.0-100.0 fL MCV 83.6 LAB MCH 26.0-34.0 pG MCH 27.4 LAB MCHC 30.5-36.0 g/dL MCHC 32.8 LAB RDWCV 11.5-15.0 % RDW-CV 14.0 LAB PLTCT 150-400 k/uL Platelet Count 201 LAB MPV 9.0-12.7 fL MPV 9.9 LAB ANEUT % Neut% 80.8 LAB AANEUT 1.45-7.50 k/uL Abs Neut High 9.68 LAB ALYMP % Lymph% 10.9 LAB AALYMP 1.00-4.00 k/uL Abs Lymph 1.30 LAB AMONO % Martin% 8.0 LAB AAMONO <0.87 k/uL Abs Martin High 0.96 LAB AEOS % Eosin% 0.1 LAB AAEOS <0.46 k/uL Abs Eosin <0.03 LAB ABASO % Baso% 0.2 LAB AABASO <0.11 k/uL Abs Baso <0.03 LAB AUNRBC 0 /100 WBC NRBCs 0.0 LAB ABNRBC <0.01 k/uL Absolute nRBC <0.01 LAB DTYP DTYPE Auto Diff Performed By: #### CBCDIF, BMP #### [facility] [address] [place], [place] [address] BASIC METABOLIC PANL Collected: 12/10/2017 Status: F Source: STEGER 4:23 AM [facility] REPOSITORY TYPE CODE TESTS RESULT OUT OF REFERENCE UNITS RANGE LAB GLU 74-99 mg/dL High Glucose 181 Result Comment: The [place] Diabetes [employer] (ADA) provides guidance for cutoff values for fasting glucose and random glucose. The ADA defines fasting as no caloric intake for at least 8 hours. Fas ting plasma glucose results between 100 to 125 mg/dL indicate increased risk for diabetes (prediabetes). Fasting plasma glucose results greater than or equal to 126 mg/dL meet the criteria for diagnosis of diabetes. In the absence of unequivocal hyperglycemia, results should be confirmed by repeat testing. In a patient with classic symptoms of hyperglycemia or hyperglycemic crisis, random plasma glucose results greater than or equal to 200 mg/dL meet the criteria for diagnosis of diabetes. Reference: Standards of Medical Care in Diabetes 2016, [place] [employer]. Diabetes Care. 2016.39(Suppl 1). LAB BUN 7-21 mg/dL BUN 20 LAB CRET 0.58-0.96 mg/dL Creatinine 0.70 LAB NA 136-144 mmol/L Sodium 136 LAB K 3.7-5.1 mmol/L Potassium 4.0 LAB CL 97-105 mmol/L Chloride 101 LAB CO2 22-30 mmol/L CO2 24 LAB AGAP 9-18 mmol/L Anion Gap 11 LAB CA 8.5-10.2 mg/dL Calcium, Low Total 8.1 LAB GFRAA eGFR- Amer. >60 LAB GFRNAA . eGFR-All Other Races >60 Result Comment: eGFR (Estimated GFR) Units of measure: mL/min/1.73 meters squared eGFR is derived from the reexpressed MDRD Study equation using the following parameters: serum creatinine, age, gender and race. The creatinine assay has been calibrated to be traceable to IDMS. An eGFR <60 mL/min/1.73m2 for >3 months is consistent with chronic kidney disease. Refer to KDOQI guidelines for clinical interpretation. In patients with unstable renal function, e.g. those with acute kidney injury, the eGFR may not accurately reflect actual GFR. Performed By: #### CBCDIF, BMP #### [facility] [address] [place], [place] [address] HEMOGLOBIN A1C Collected: 12/10/2017 Status: F Source: STEGER 4:23 AM [facility] REPOSITORY TYPE CODE TESTS RESULT OUT OF REFERENCE UNITS RANGE LAB HGBA1C 4.3-5.6 % High Hemoglobin A1c 7.2 LAB HBA0 mg/dL Est. Average Glucose 160 Result Comment: eAG: (Estimated average glucose) is a calculated value from HgbA1c and is medical center representative of the average blood glucose level in the last 2-3 month period. Performed By: #### HBA1C #### [facility] [address] [place], [place] [address] PROGRESS Observed: 12/10/2017 Status: COMPLETED Source: STEGER 2:33 AM [facility] REPOSITORY HNO ID: [id number] Author: Ankush Carrillo MD Service: Urology Author Type: Resident Type: Progress Notes Filed: 12/10/2017 2:36 AM Note Text: Examined overnight. Pain moderately controlled with epidural + JOINTER MACHINE. Exam - sleeping comfortably on arrival Mildly tachycardic - HR 100s Abdomen soft, obese Left flank incision with primapore dressing, appropriately tender, DAVID ss Serrano clear yellow urine UOP 120cc/4 hours - 30cc/hr A/P: POD1 left open partial nephrectomy. Mild tachycardia, moderate urine output. Tachycardia may be pain related. Will get stat recheck CBC, BMP now. 1L NS bolus following labs. Monitor closely. NURSING PROG Observed: 12/09/2017 Status: COMPLETED Source: STEGER 6:30 PM [facility] REPOSITORY HNO ID: [id number] Author: Carolynn RobertsRn) BHARGAVI Ford Service: (none) Author Type: Registered Nurse Type: Nursing Progress Note Filed: 12/09/2017 8:08 PM Note Text: Nursing Progress Note Patient Name: Tess Hall Patient Location: [place] [address] Daily Note: Spoke with Dr. Rodriguez regarding increased pain. Dr Rodriguez to paged APMS This note was completed by: Carolynn Ford, BHARGAVI PROGRESS Observed: 12/09/2017 Status: COMPLETED Source: STEGER 6:25 PM [facility] REPOSITORY HNO ID: [id number] Author: Ashok Rodriguez Service: Urology Author Type: Resident Type: Progress Notes Filed: 12/09/2017 6:37 PM Note Text: Urology Post-Op Progress Note Pain poorly controlled despite fent JOINTER MACHINE and epidural, no n/v, denies chest pain/sob. BP 141/94 Pulse 99 Temp 36.6 ?C (97.9 ?F) (Oral) Resp 16 LMP 11/20/2017 SpO2 99% General: lying in bed in no acute distress Lungs: even unlabored respirations Abdomen: obese, soft, approp tender w/o sophie/guarding, left flank inc w/ clean dry primipore dressing Genitourinary: serrano clear yellow urine Extremities: no LE edema, SCDs on Hgb: 11.6 (11.6 pre-op) SCr: 0.63 (0.63 baseline) UOP: ~60cc per hour since OR A/P: 37 year old female POD# 0 s/p open left partial nephrectomy - Diet - sips of clears - Activity - bedrest for now - DVT prophylaxis - PAS Stockings on and Pharmacologic DVT prophylaxis contraindicated due to bleeding risk - Antibiotics - ancef perioperative - Secondary Dx and Complications - - T2DM: ISS and accuchecks - morbid obesity 55: monitor - smoker active: smoking cessation - asthma: inhaler (asmanex) PRN, resp therapy consult - left renal mass, suspected malignancy, final pathology pending - pain: epidural and fentanyl JOINTER MACHINE - poor pain ctrl, APMS input appreciated - GERD: PPI - Discharge planning - pending course Ashok Rodriguez MD December 09, 2017 6:25 PM NURSING PROG Observed: 12/09/2017 Status: COMPLETED Source: STEGER 5:25 PM [facility] REPOSITORY HNO ID: [id number] Author: Ayana (Rn) BHARGAVI Kent Service: (none) Author Type: Registered Nurse Type: Nursing Progress Note Filed: 12/09/2017 5:26 PM Note Text: Nursing Progress Note Patient Name: Tess Hall Patient Location: H020 010/H020-10 Daily Note:Patient still rating pain 8/10. Encouraged to press both epidural and marketing technology coordinator buttons. Pt drowsy, occasionally drifts to sleep during care. Pt more relaxed and VSS. Pain signout from PACU. Continue to monitor and assess pain level This note was completed by: Ayana Kent RN NURSING PROG Observed: 12/09/2017 Status: COMPLETED Source: STEGER 4:48 PM [facility] REPOSITORY HNO ID: [id number] Author: Ayana (Rn) BHARGAVI Kent Service: (none) Author Type: Registered Nurse Type: Nursing Progress Note Filed: 12/09/2017 4:48 PM Note Text: Nursing Progress Note Patient Name: Tess Hall Patient Location: [place] [address]/[facility]- Daily Note: Assumed care of patient at 1645 This note was completed by: Ayana Kent RN ANES POST Observed: 12/09/2017 Status: COMPLETED Source: STEGER 4:15 PM [facility] REPOSITORY HNO ID: [id number] Author: Paul Mckeon Service: (none) Author Type: Anesthesiologist Type: Anesthesia PostOp Filed: 12/09/2017 4:15 PM Note Text: POST ANESTHESIA EVALUATION NOTE SERVICE DATE: 12/09/2017 SERVICE TIME: 4:15 PM : 1980 Vitals: 12/09/17 0710 Temp: 36.5 ?C (97.7 ?F) 12/09/17709 BP: 112/76 12/09/1710 Pulse: 102 12/09/1710 Resp: 22 12/09/17709 SpO2: 94% Validated Vital Signs: Yes POST ANES STATUS: No apparent anesthetic complications. The patient is appropriately hydrated with stable respiratory and cardiovascular status. Patient has safe and adequate airway control. The patient has appropriate pain relief and no significant post operative nausea or vomiting. The patient has achieved baseline mental status. Further assessment by Anesthesia Service: None Other Remarks: SIGNATURE: Paul Mckeon DO PATIENT NAME: Tess Hall DATE: December 09, 2017 TIME: 4:15 PM PAGER/CONTACT #: [phone] CBC AND DIFFERENTIAL Collected: 12/09/2017 Status: F Source: STEGER 4:12 PM [facility] REPOSITORY TYPE CODE TESTS RESULT OUT OF REFERENCE UNITS RANGE LAB WBC 3.70-11.00 k/uL WBC High 17.61 LAB RBC 3.90-5.20 m/uL RBC 4.29 LAB HGB 11.5-15.5 g/dL Hemoglobin 11.6 LAB HCT 36.0-46.0 % Low Hematocrit 35.3 LAB MCV 80.0-100.0 fL MCV 82.3 LAB MCH 26.0-34.0 pG MCH 27.0 LAB MCHC 30.5-36.0 g/dL MCHC 32.9 LAB RDWCV 11.5-15.0 % RDW-CV 14.0 LAB PLTCT 150-400 k/uL Platelet Count 222 LAB MPV 9.0-12.7 fL MPV 10.1 LAB ANEUT % Neut% 86.4 LAB AANEUT 1.45-7.50 k/uL Abs Neut High 15.22 LAB ALYMP % Lymph% 7.6 LAB AALYMP 1.00-4.00 k/uL Abs Lymph 1.33 LAB AMONO % Martin% 5.6 LAB AAMONO <0.87 k/uL Abs Martin High 0.99 LAB AEOS % Eosin% 0.1 LAB AAEOS <0.46 k/uL Abs Eosin <0.03 LAB ABASO % Baso% 0.3 LAB AABASO <0.11 k/uL Abs Baso 0.05 LAB AUNRBC 0 /100 WBC NRBCs 0.0 LAB ABNRBC <0.01 k/uL Absolute nRBC <0.01 LAB DTYP DTYPE Auto Diff Performed By: #### CBCDIF, BMP #### [facility] [address] [place], [place] [address] BASIC METABOLIC PANL Collected: 12/09/2017 Status: F Source: STEGER 4:12 PM [facility] REPOSITORY TYPE CODE TESTS RESULT OUT OF REFERENCE UNITS RANGE LAB GLU 74-99 mg/dL High Glucose 187 Result Comment: The [place] Diabetes [employer] (ADA) provides guidance for cutoff values for fasting glucose and random glucose. The ADA defines fasting as no caloric intake for at least 8 hours. Fas ting plasma glucose results between 100 to 125 mg/dL indicate increased risk for diabetes (prediabetes). Fasting plasma glucose results greater than or equal to 126 mg/dL meet the criteria for diagnosis of diabetes. In the absence of unequivocal hyperglycemia, results should be confirmed by repeat testing. In a patient with classic symptoms of hyperglycemia or hyperglycemic crisis, random plasma glucose results greater than or equal to 200 mg/dL meet the criteria for diagnosis of diabetes. Reference: Standards of Medical Care in Diabetes 2016, [place] Diabetes Association. Diabetes Care. 2016.39(Suppl 1). LAB BUN 7-21 mg/dL BUN High 25 LAB CRET 0.58-0.96 mg/dL Creatinine 0.63 LAB NA 136-144 mmol/L Sodium 138 LAB K 3.7-5.1 mmol/L Potassium 4.3 LAB CL 97-105 mmol/L Chloride High 106 LAB CO2 22-30 mmol/L CO2 22 LAB AGAP 9-18 mmol/L Anion Gap 10 LAB CA 8.5-10.2 mg/dL Calcium, Total 8.7 LAB GFRAA eGFR- Amer. >60 LAB GFRNAA . eGFR-All Other Races >60 Result Comment: eGFR (Estimated GFR) Units of measure: mL/min/1.73 meters squared eGFR is derived from the reexpressed MDRD Study equation using the following parameters: serum creatinine, age, gender and race. The creatinine assay has been calibrated to be traceable to IDMS. An eGFR <60 mL/min/1.73m2 for >3 months is consistent with chronic kidney disease. Refer to KDOQI guidelines for clinical interpretation. In patients with unstable renal function, e.g. those with acute kidney injury, the eGFR may not accurately reflect actual GFR. Performed By: #### CBCDIF, BMP #### [facility] [address] [place], [place] [address] NURSING PROG Observed: 12/09/2017 Status: COMPLETED Source: STEGER 4:09 PM [facility] REPOSITORY HNO ID: [id number] Author: Stephanie RobertsRnPaulette Bowman RN Service: (none) Author Type: Registered Nurse Type: Nursing Progress Note Filed: 12/09/2017 4:45 PM Note Text: Nursing Progress Note Patient Name: Tess Hall Patient Location: H020 010/H020-10 Daily Note: Arrived to PACU yelling c/o 10/10 pain, epidural infusing. vice president of human resources at bedside, new orders received. 1615: Spoke with pain management regarding patients c/o pain, will come at assess patient. 1640: Pain management at bedside. Patient currently resting in bed with eyes closed, falls asleep when spoken to. Rates pain 10/10, fentanyl JOINTER MACHINE infusing w/o difficulty. No new orders received. This note was completed by: Stephanie Bowman RN OPERATIVE NO Observed: 12/09/2017 Status: COMPLETED Source: STEGER 3:20 PM [facility] [place] REPOSITORY HNO ID: [id number] Author: Moody Lamb MD Service: Urology Author Type: Resident Type: Operative Report Filed: 12/09/2017 3:35 PM Note Text: [facility] [place] [phone] or [phone]) CC-FORMERLY [facility] C O N F I D E N T I A L I N F O R M A T I O N [facility] DOCUMENT OPERATIVE REPORT Patient Name: Tess Hall Patient Log ID: [id number] Surgery Date: 12/09/2017 Incision/Procedure Start Time: 10:53 AM Incision Close/Procedure End Time: Surgeon(s) and Scoop Machine Operator(s): Surgeon(s) and Role: * Heather Torres - Primary * Stefania (Res) MD Aibgail - Resident - Assisting * Moody (Res) MD Adonis - Resident - Assisting Procedure(s): Open LEFT Partial Nephrectomy Intraoperative ultrasound with interpretation Anatomic Site: Kidney, Laterality: Left Approach: Open Anesthesia: General Endotracheal Operative Indications: This is a 37 year old female with a left, endophytic, hilar 3.3cm renal mass who after discussing the risks, benefits, and alternatives of the procedure has elected to pursue management of their condition via the aforementioned surgery. Operative Findings: - morbid obesity with BMI 52 - left renal mass endophytic and hilar - left adrenal spared - Cold Ischemia time: 36min - Percent renal parenchyma spared: 75% Procedure Details:?Patient?was brought to the operating room?where a surgical huddle was performed with all operating room personnel. The patient was then placed on the operating room table, perioperative antibiotics administered, and general anesthesia induced. A Serrano catheter was placed. Patient was placed in mcgw-paly-ok Flank position with all pressure points padded and was prepped and draped in the usual sterile manner. A surgical timeout was performed. ? A left Flank?incision was made over the 11th rib. Dissection was carried through the flank and abdominal musculature down to the 11th rib. The periosteal elevator was used to elevate the periosteum off the rib circumferentially, reflecting the neurovascular bundle off the caudad side of the rib. The Doyen was used to free up the rib after which the rib was resected and handed off as specimen. Tethering fibers of diaphragm were released and no pleural injury was noted. The retroperitoneum was entered at the level of the 11th rib and the psoas muscle identified, allowing blunt development of the posterior plane behind the kidney. We reflected the peritoneum off Gerota's fascia medially. The Bookwalter retractor was placed. ? Gerota's fascia was incised laterally and the perinephric fat was dissected off the kidney circumferentially. Near the upper pole, the adrenal gland was spared off the kidney. Near the lower pole, the ureter was identified and preserved. Full mobilization of the kidney was achieved by defatting circumferentially, taking care to leave the fat overlying the tumor itself. The Hilum was dissected out revealing the following anatomy - renal arteries: 2, renal veins: 1. Radiology was then called down and performed intraoperative ultrasound to demarcate the borders of the tumor, which was hilar and quite endophytic. Markings were made on the capsule. We then clamped the renal arteries and vein and applied ice around the kidney to generate cold ischemia. The tumor was incised sharply and removed with a border of normal parenchyma. No gross violation of the tumor pseudocapsule was noted. We then oversewed open areas of collecting system and bleeding vessels with 3-0 vicryl in a dzrvwn-ys-geeja fashion. We then completed hemostasis with the argon beam ladle patcher. Hemostasis was excellent. We then packed the defect with Fibrillar and Floseal and closed the renorrhaphy with interrupted 2-0 Chromic sutures. After completing the anastomosis, the clamps were removed. Excellent reperfusion of the kidney was noted. Excellent hemostasis was noted. ? Multiple rounds of warm irrigation was then used. Excellent hemostasis was assured with electrocautery and fibrillar packing where needed. The patient was taken out of flex. A drain was left adjacent to the kidney and secured with 3-0 nylon. The incision was closed using running 0 Maxon in two layers. Skin was closed with murtaza. Dressings were applied.?The patient was then emerged from anesthesia and transferred to PACU in stable?condition. All surgical counts were correct at case completion. ??? Preoperative Diagnosis: Pre-Op Diagnosis Codes: * Renal mass [N28.89] Postoperative Diagnoses: Same as preoperative diagnosis Estimated Blood Loss: 300cc Specimens: Specimen ID Type Site Comments Sent To path 1 Bone left 11th rib Pathology Routine path 2 Tissue left partial nephrectomy Pathology Routine path 3 Tissue left partial nephrectomy, final parenchymal margin #1 Pathology Routine path 4 Tissue left partial nephrectomy, final parenchymal margin #2 Pathology Routine path 5 Tissue deeper resection of base Pathology Routine Tubes and Drains: 16Fr Serrano and 19 Bill drain Complications: None Incidental perforations or lacerations: None The primary surgeon/proceduralist performed the entire procedure with the assistance of Dr. Lamb and Dr. Hayes with the exception of the skin closure which was performed by Drs. Lamb and Abigail with Dr. Torres immediately available Moody Lamb MD dictating on behalf of MD Moody Patel M.D. Urology PGY-6 Pager: [phone] December 09, 2017 3:34 PM BRIEF OP NOT Observed: 12/09/2017 Status: COMPLETED Source: STEGER 3:17 PM [facility] REPOSITORY HNO ID: [id number] Author: Moody Lamb MD Service: Urology Author Type: Resident Type: Brief Op Note Filed: 12/09/2017 3:19 PM Note Text: BRIEF OP NOTE LOG ID: [id number] Surgery/Procedure Date: 12/09/2017 Incision/Procedure Start Time: 10:53 AM Incision Close/Procedure End Time: 3:16 PM Surgeon(s)/Proceduralist(s) and Scoop Machine Operator(s): Surgeon(s) and Role: * Heather Torres - Primary * Stefania Hayes MD - Resident - Assisting * Moody Lamb MD - Resident - Assisting Procedure(s): open LEFT partial nephrectomy, intraoperative ultrasound Anesthesia: General Findings: morbid obesity with BMI 52 [address] very difficult to delineate, endophytic hilar tumor 4cm, 75% parenchyma saved, cold ischemia time 36min, renorrhaphy hemostatic Estimated Blood Loss: 300 mls Specimens: Specimen ID Type Site Comments Sent To path 1 Bone left 11th rib Pathology Routine path 2 Tissue left partial nephrectomy Pathology Routine path 3 Tissue left partial nephrectomy, final parenchymal margin #1 Pathology Routine path 4 Tissue left partial nephrectomy, final parenchymal margin #2 Pathology Routine path 5 Tissue deeper resection of base Pathology Routine Complications: None Pre-Op/Pre-Procedure Diagnosis: left renal mass Post-Op/Post-Procedure Diagnosis: * No post-op diagnosis entered * SIGNATURE: Moody Lamb MD PATIENT NAME: Tess Hall DATE: December 09, 2017 TIME: 3:17 PM PAGER/CONTACT #: US INTRAOPERATIVE Observed: 12/09/2017 Status: F Source: STEGER 1:00 PM [facility] REPOSITORY * * *Final Report* * * DATE OF EXAM: Dec 09 2017 1:00PM [facility] 1053 - US INTRAOPERATIVE / PROCEDURE REASON: partial nephrectomy * * * * Physician Interpretation * * * * INTRAOPERATIVE ULTRASOUND:... CLINICAL HISTORY: Renal mass TECHNIQUE: Intraoperative sonography was performed to evaluate the left renal mass. Images were obtained and stored in a permanent archive. RESULT: See impression. IMPRESSION: The margins of the tumor were marked in conjunction with the surgeon. Metal Rolling Mill Operator: MYRON Transcribe Date/Time: Dec 09 2017 1:43P Dictated by : WILLAM JOYNER MD This examination was interpreted and the report reviewed and electronically signed by: WILLAM JOYNER MD on Dec 09 2017 1:44PM EST [id number] ALL Collected: 12/09/2017 Status: F Source: [facility] 12:56 PM [facility] USE ONLY REPOSITORY TYPE CODE TESTS RESULT OUT OF REFERENCE UNITS RANGE LAB PH 7.35-7.45 pH 7.36 LAB PCO2 34-46 mm Hg pCO2 39 LAB PO2 85-95 mm Hg pO2 High 183 LAB BE mmol/L Base Excess NEG 3 LAB HCO3 22-26 mmol/L Bicarbonate 22 LAB CO2CT 22.0-28.0 mmol/L CO2 Content 23 LAB O2HB 95-98 % Oxyhemoglobin, Art. 96 LAB COHB 0-5.0 % Carboxyhemoglobin, 2.2 Art LAB MHGB 0.4-1.5 % Methemoglobin 0.8 LAB TEMP C Temperature, Body 37.0 LAB PHTC 7.35-7.45 pH, Temp Corrected 7.36 LAB PCO2T 34-46 mm Hg pCO2, Temp Correct 39 LAB PO2T mm Hg pO2, Temp Corrected 183 LAB NAB 132-148 mmol/L Sodium,Whole Bld 136 LAB KWB 3.5-5.0 mmol/L Potassium, Whole Bld 3.9 LAB HGBB 11.5-15.5 g/dL Low Hemoglobin,Total,A 11.3 CL LAB HCTB 36.0-46.0 % Hematocrit, Low ACL 35 LAB IC 1.08-1.30 mmol/L Calcium, Ion, WB 1.21 LAB GLB 60-105 mg/dL Glucose,Whole High Bld 137 LAB LACT 0.5-2.2 mmol/L Lactate 0.6 LAB ACBDTE Notify Date, Art 20171209 LAB ACBTME Notify Time, Art 222607 Performed By: #### ALLBG #### [facility] [address] [place], [place] [address] ALLIED HEALTH Observed: 12/09/2017 Status: COMPLETED Source: STEGER 7:41 AM [facility] REPOSITORY HNO ID: [id number] Author: Mumtaz (Insulation Worker) Chaplain Declna Service: Spiritual Care Author Type: Insulation Worker Type: Allied Health Filed: 12/09/2017 7:44 AM Note Text: SPIRITUAL CARE Spiritual Care Visit Record Name: Tess Hall Date: December 09, 2017 Type of Visit: Preoperative Prayer/Visit Ministry Provided During Visit: Healing Touch and Prayer Guided Imagery Spiritual Presence / Support Notes: pt c/o feeling extremely nervous prior to surgery. Brief Reiki session with guided imagery for relaxation conducted at bedside. Prayer and pastoral care provided. Referrals: No referral made Will See: As Needed Only Follow-up Notes: Informed patient and family of Insulation Worker availability and Healing Services during inpatient recovery. Insulation Worker Signature: Chaplain Jethro To contact the Spiritual Care Department: Please call [phone] or Page the On-Call Insulation Worker at pager [phone] Thank you for the opportunity to be of service. This is an electronically created document. IF PRINTED, PLEASE DO NOT REMOVE FROM THE CHART OR MODIFY PRINTED COPY. PT ED Observed: 12/09/2017 Status: COMPLETED Source: STEGER 6:43 AM [facility] REPOSITORY HNO ID: [id number] Author: Brooke (Rn) BHARGAVI Lopez Service: (none) Author Type: Registered Nurse Type: Patient Education Filed: 12/09/2017 6:44 AM Note Text: PRE OP LEARNING ASSESSMENT PROCEDURE/SURGERY: SURGERY: logistics READINESS TO LEARN COGNITIVE ABILITY: Alert and oriented MOTIVATION TO LEARN: Interested FAMILY SUPPORT: None - Unavailable/disinterested High - Very involved in pt care PATIENT LEARNS BEST BY: Written Instruction - Hand-outs Verbal Instruction FACTORS AFFECTING LEARNING: None PHYSICAL LIMITATIONS AFFECTING LEARNING: None Electronically Signed By: Brooke Lopez RN In Department: [facility] MA[facility] M022 SURGICAL PATHOLOGY Observed: 12/09/2017 Status: F Source: STEGER 12:00 AM [facility] REPOSITORY Specimen originated from [facility] Specimen #: [id number] Submitting Physician: HEATHER TORRES M.D. (Q10) FINAL DIAGNOSIS 1. Left 11th rib, removal (A) - Unremarkable segment of bone consistent with rib (gross diagnosis only). 2. Left kidney, partial nephrectomy (B) - Renal cell carcinoma, clear cell type (3.7 cm), ISUP grade 3. - Tumor invades the perinephric adipose tissue. - Margins are negative for tumor. 3. Left partial nephrectomy final parenchymal margin #1, excision (C) - Renal parenchyma, negative for malignancy. 4. Left partial nephrectomy, final parenchymal margin #2, excision (D) - Renal parenchyma, negative for malignancy. 5. Deeper resection of base, resection (E) - Renal parenchyma, negative for malignancy. ANN/hussein 12/16/2017 SYNOPTIC REPORT OF [place] PATHOLOGIC FINDINGS LEFT PARTIAL NEPHRECTOMY: KIDNEY:NEPHRECTOMY Specimen: Kidney Procedure: Partial nephrectomy Specimen Laterality: Left Tumor Site: Not specified Tumor Focality: Unifocal Histologic Type: Clear cell renal cell carcinoma Sarcomatoid Features: Not identified Rhabdoid Features: Not identified Histologic Grade (ISUP Nucleolar Grade): G3: Nucleoli conspicuous and eosinophilic at 100x magnification Tumor Necrosis: Not identified Tumor Size: Greatest dimension: 3.7 cm Anatomic Extent of Tumor: Tumor extension into perinephric tissue (beyond renal capsule) Margin Status: Uninvolved by invasive carcinoma Lymphovascular Invasion: Not identified Pathologic Stage Classification (pTNM,AJCC 8th ed) TNM Descriptors: Not applicable Primary Tumor (pT): pT3a: Tumor extends into the renal vein or its segmental branches, or invades the pelvicalyceal system, or tumor invades perirenal and/or renal sinus fat but not beyond Gerota's fascia Regional Lymph Nodes (pN): pNX: Regional lymph nodes cannot be assessed No nodes submitted or found Distant Metastasis (pM): Not applicable/Not confirmed pathologically in this case Pathologic Findings in Nonneoplastic Kidney: Insufficient tissue Hoist Cylinder Loader Tumor Block: Specify: B3 Darwin Stapleton M.D. (Electronic Signature) SPECIMEN SUBMITTED A: LEFT 11TH RIB B: LEFT PARTIAL NEPHRECTOMY C: LEFT PARTIAL NEPHRECTOMY FINAL PARENCHYMAL MARGIN #1 D: LEFT PARTIAL NEPHRECTOMY FINAL PARENCHYMAL MARGIN #2 E: DEEPER RESECTION OF BASE CLINICAL DATA L RENAL MASS GROSS DESCRIPTION A. Received in formalin labeled left 11th rib is a segment of bone consistent with a rib measuring 11.0 x 1.4 x 0.7 cm. No masses, lesions or abnormalities are identified. No sections are submitted. The specimen is for gross examination only. The specimen was reviewed by Dr. Conner. DAKOTA/kalani 12/10/2017 Gross examination performed at [facility], [address] [place] [address] B. Received in formalin labeled as left partial nephrectomy is a segment of kidney measuring 4.8 x 4.0 x 3.6 cm, and weighing 23.7 grams. Renal artery, vein, pelvis, and ureter are not present on the specimen. A portion of renal sinus fat is identified and is inked orange. The parenchymal line of resection is inked blue and the soft tissue line of resection is inked black. Sectioning reveals a francois-yellow mass measuring 3.7 x 2.7 x 2.5 cm. There are foci of hemorrhage. The mass is adjacent to the renal sinus fat, the parenchymal line of resection, and the soft tissue line of resection, but appears to be well encapsulated. The remaining uninvolved parenchyma is francois-pink and homogeneous. A photograph of the specimen is taken. Hoist Cylinder Loader sections are submitted as follows: B1 mass with renal sinus fat closest relationship, B2 mass with parenchymal line of resection closest relationship, B3 mass with soft tissue line of resection closest relationship, B4 mass with adjacent normal. C. Received in formalin labeled as partial nephrectomy final parenchymal margin is a segment of francois-pink soft tissue measuring 1.1 x 0.8 x 0.3 cm. The specimen is totally submitted in one cassette. D. Received in formalin labeled as partial nephrectomy final parenchymal margin #2 is a segment of francois-pink soft tissue measuring 1.1 x 1.1 x 0.2 cm. The specimen is totally submitted in one cassette. COMMUNICATION CLERK/glw 12/09/2017 Gross examination performed at [facility], [address] [place] [address] E. Received fresh labeled with the patient name deeper resection are multiple irregular, francois-white, soft tissue fragments aggregating to 1.2 x 0.8 x 0.2 cm. Entirely submitted in cassette E1. EMELINA/kr 12/09/2017 [place] [address] Date of Report: 12/16/2017 Date of Procedure: 12/09/2017 Date of Receipt: 12/09/2017 Submitted by: HEATHER TORRES M.D. (Q10) Location: [facility] Diagnostic interpretation performed at [place] [address]. PROGRESS Observed: 12/01/2017 Status: COMPLETED Source: STEGER 4:55 PM [facility] REPOSITORY HNO ID: [id number] Author: Jessie (Rn) BHARGAVI Abebe Service: (none) Author Type: Registered Nurse Type: Progress Notes Filed: 12/01/2017 4:59 PM Note Text: ANESTHESIA PRE-OPERATIVE ASSESSMENT (PACE) SERVICE DATE: 12/01/2017 SERVICE TIME: 4:55pm ASSESSMENT AND PLAN: Tess Hall is a 37 year old female scheduled for Left flank exploratoin, Left partial nephrectomy (possible radical nephrectomy) per Informed Consent in [facility] on 12/09/2017. PMH: - T2DM: on insulin and oral agents, FBS 70-90 - Asthma: moderate persistent with nearly daily use of albuterol - L renal mass- for the above surgery - BMI 55.4 - Smoker: 1ppd x 26 years ? [employer]: Not Done FC: 2 METS: Climb a flight of stairs or walk up a hill (5.50 METs) Patient denies any chest pain or undue shortness of breath with the above physical activity. Patient WILL accept blood products. BLOOD WORK/PRODUCTS ORDERED: Type and Screen , Con ABO HISTORY OF CHRONIC PAIN: No PAIN MANAGEMENT OPTIONS: Final pain management plan will be discussed on the day of surgery. ANESTHETIC OPTIONS: Final anesthesia management options will be discussed on day of surgery. PRE-OP PLAN ORDERED: Diabetes orders Patient Instructed: ? No solid food or non-clear liquids after midnight. Clear liquids allowed until two hours before scheduled arrival. ? Patient instructed to take the following medications with a sip of water: inhaler Vital Signs: BP 132/86 Pulse 94 Ht 165.1 cm (5' 5) Wt (!) 151.1 kg (333 lb 1.8 oz) LMP 11/20/2017 SpO2 99% BMI 55.43 kg/m? BMI 55.43 kg/(m2) Vital signs completed by: IMPACT Weight acquired: per HANDP. Height acquired: per HANDP Airway Exam: MOUTH OPENING/TMJ: Full jaw ROM MICROGNATHIA/OVERBITE: No MALLAMPATI SCORE is CLASS II UPPER LIP BITE TEST: Class I - Lower incisors can bite the upper lip above the rodrigo line DENTITION: missing - top and bottom THYROMENTAL DIST: WNL SHORT NECK: Yes - short/thick secondary to obesity. NECK CIRCUMFERENCE >40 cm: Appears < than 40 CM NECK FLEX: Full ROM NECK EXTENSION: Full ROM AIRWAY HISTORY: No abnormal airway history ARKS AIRWAY DETAIL: N/A DATA: EKG READING: EKG not indicated OTHER TESTS: N/A Lab Value Units Date High Low HB 11.6 g/dL 12/01/2017 15.5 11.5 HCT 36.7 % 12/01/2017 46.0 36.0 WBC 7.59 k/uL 12/01/2017 11.00 3.70 PLT 241 k/uL 12/01/2017 400 150 NA 137 mmol/L 12/01/2017 144 136 K 4.4 mmol/L 12/01/2017 5.1 3.7 GLUC 216 mg/dL 12/01/2017 99 74 BUN 18 mg/dL 12/01/2017 21 7 CREAT 0.62 mg/dL 12/01/2017 0.96 0.58 PTSEC 9.3 sec 12/01/2017 13.0 9.7 INR <0.9 no uni* 12/01/2017 1.3 0.9 APTT 24.0 sec 12/01/2017 32.4 23.0 ALT 12 U/L 12/01/2017 38 7 AST 12 U/L 12/01/2017 35 13 TBILI 0.2 mg/dL 12/01/2017 1.3 0.2 TSH No results within date range. Lab Value Units Date High Low HCGQT No results within date range. UHCG No results within date range. HCG, BODY* No results within date range. ABORHD No results within date range. ABSCREEN No results within date range. HBA1C: Hemoglobin A1C Date Value 12/26/2015 12.7 % 01/29/2015 11.5 ) Patient accompanied by boyfriend Case Discussed with Dr. Fernandes OPTIMIZATION STATUS: Patient optimization pending Labs IMPACT SIGNATURE: Jessie Abebe RN PATIENT NAME: Tess Hall DATE: December 01, 2017 TIME: 4:55 PM PAGER/CONTACT #: [email or web address] Observed: 12/01/2017 Status: COMPLETED Source: STEGER 3:30 PM [facility] REPOSITORY Office Visit (PSSCMN) TESS HALL ([id number]) 1980 F Date Time Provider Department 12/01/17 3:30 PM I [facility]ENTER [facility] PSSCMN During your visit today, we recorded the following information about you: Pulse Blood pressure Weight Height 94/minute 132/86 151.1 kg 1.651 m Jessie Abebe RN, RN 12/01/2017 4:59 PM Signed ANESTHESIA PRE-OPERATIVE ASSESSMENT (PACE) SERVICE DATE: 12/01/2017 SERVICE TIME: 4:55pm ASSESSMENT AND PLAN: Tess Hall is a 37 year old female scheduled for Left flank exploratoin, Left partial nephrectomy (possible radical nephrectomy) per Informed Consent in MAIN on 12/09/2017. PMH: - T2DM: on insulin and oral agents, FBS 70-90 - Asthma: moderate persistent with nearly daily use of albuterol - L renal mass- for the above surgery - BMI 55.4 - Smoker: 1ppd x 26 years ? [facility]: Not Done FC: 2 METS: Climb a flight of stairs or walk up a hill (5.50 METs) Patient denies any chest pain or undue shortness of breath with the above physical activity. Patient WILL accept blood products. BLOOD WORK/PRODUCTS ORDERED: Type and Screen , Con ABO HISTORY OF CHRONIC PAIN: No PAIN MANAGEMENT OPTIONS: Final pain management plan will be discussed on the day of surgery. ANESTHETIC OPTIONS: Final anesthesia management options will be discussed on day of surgery. PRE-OP PLAN ORDERED: Diabetes orders Patient Instructed: ? No solid food or non-clear liquids after midnight. Clear liquids allowed until two hours before scheduled arrival. ? Patient instructed to take the following medications with a sip of water: inhaler Vital Signs: BP 132/86 Pulse 94 Ht 165.1 cm (5' 5) Wt (!) 151.1 kg (333 lb 1.8 oz) LMP 11/20/2017 SpO2 99% BMI 55.43 kg/m? BMI 55.43 kg/(m2) Vital signs completed by: IMPACT Weight acquired: per HANDP. Height acquired: per HANDP Airway Exam: MOUTH OPENING/TMJ: Full jaw ROM MICROGNATHIA/OVERBITE: No MALLAMPATI SCORE is CLASS II UPPER LIP BITE TEST: Class I - Lower incisors can bite the upper lip above the rodrigo line DENTITION: missing - top and bottom THYROMENTAL DIST: WNL SHORT NECK: Yes - short/thick secondary to obesity. NECK CIRCUMFERENCE >40 cm: Appears < than 40 CM NECK FLEX: Full ROM NECK EXTENSION: Full ROM AIRWAY HISTORY: No abnormal airway history ARKS AIRWAY DETAIL: N/A DATA: EKG READING: EKG not indicated OTHER TESTS: N/A Lab Value Units Date High Low HB 11.6 g/dL 12/01/2017 15.5 11.5 HCT 36.7 % 12/01/2017 46.0 36.0 WBC 7.59 k/uL 12/01/2017 11.00 3.70 PLT 241 k/uL 12/01/2017 400 150 NA 137 mmol/L 12/01/2017 144 136 K 4.4 mmol/L 12/01/2017 5.1 3.7 GLUC 216 mg/dL 12/01/2017 99 74 BUN 18 mg/dL 12/01/2017 21 7 CREAT 0.62 mg/dL 12/01/2017 0.96 0.58 PTSEC 9.3 sec 12/01/2017 13.0 9.7 INR <0.9 no uni* 12/01/2017 1.3 0.9 APTT 24.0 sec 12/01/2017 32.4 23.0 ALT 12 U/L 12/01/2017 38 7 AST 12 U/L 12/01/2017 35 13 TBILI 0.2 mg/dL 12/01/2017 1.3 0.2 TSH No results within date range. Lab Value Units Date High Low HCGQT No results within date range. UHCG No results within date range. HCG, BODY* No results within date range. ABORHD No results within date range. ABSCREEN No results within date range. HBA1C: Hemoglobin A1C Date Value 12/26/2015 12.7 % 01/29/2015 11.5 ) Patient accompanied by boyfriend Case Discussed with Dr. Fernandes OPTIMIZATION STATUS: Patient optimization pending Labs IMPACT SIGNATURE: Jessie Abebe RN PATIENT NAME: Tess Hall DATE: December 01, 2017 TIME: 4:55 PM PAGER/CONTACT #: Referring Provider: SELF [[id number]] Allergies As of Date: 12/01/2017 Noted Allergy Reaction CLINDAMYCIN 08/17/2017 4 - Hives 9 - Itching TYLENOL (ACETAMINOPHEN) 08/17/2017 4 - Hives 8 - GI Upset Date Reviewed: 12/01/2017 Reviewed by: Jessie De Santiago) BHARGAVI Abebe - Fully Assessed Primary Visit Diagnosis:Pre-op evaluation [Z01.818] Prescriptions as of 12/01/2017 Sig: BYDUREON SUBCUTANEOUS Inject subcutaneously once ea* MOTRIN ORAL Take 1 tablet by mouth as nee* INSULIN GLARGINE (U-100) 100 * Inject 35-40 Units subcutaneo* CYCLOBENZAPRINE 10 MG TABLET Take 1 tablet by mouth three * FLUTICASONE 110 MCG/ACTUATION* Inhale 1 Puff as instructed t* X INSULIN GLARGINE (U-100) 100 * Inject 50 Units subcutaneousl* GLIPIZIDE 10 MG TABLET Take 2 in am before breakfast* BLOOD SUGAR DIAGNOSTIC STRIPS Test blood sugar(s)3daily. D* LANCETS Use as instructed up to 4 azar* METFORMIN 1,000 MG TABLET Take 1 tablet by mouth twice * BLOOD-GLUCOSE METER KIT As directed ALBUTEROL SULFATE HFA 90 MCG/* Inhale 2 Puffs as instructed. Problem List As Of Date 12/01/2017 Noted Resolved Diabetes mellitus type 2, uncontrolled, without*INVALID FOR* Asthma with COPD with exacerbation (HCC) [J44.1*INVALID FOR*06/28/2015 HTN (hypertension) [I10] INVALID FOR* Anxiety [F41.9] INVALID FOR* Asthma [J45.909] INVALID FOR* Non morbid obesity [E66.9] INVALID FOR* NO SHOW INVALID FOR* Renal mass [N28.89] INVALID FOR* Morbid obesity (HCC) [E66.01] INVALID FOR* Obesity, Class III, BMI >= 40 [E66.01] INVALID FOR* Encounter Status:Closed by JESSIE ABEBE on 12/01/17 Chart Close Cosign Required by: Angelo Fernandes[] PROGRESS Observed: 12/01/2017 Status: COMPLETED Source: STEGER 3:04 PM [facility] [place] REPOSITORY HNO ID: [id number] Author: Citlali Wolfe Service: (none) Author Type: (none) Type: Progress Notes Filed: 12/01/2017 3:36 PM Note Text: Tess Hall is a 37 year old female here today for visit in [facility] Referring Surgeon: Dr. Torres Date of Surgery: 12/09/2017 Planned Surgery/Procedure: NEPHRECTOMY PARTIAL ADULT Allergies have been reviewed and verified. They include the following: Clindamycin; Tylenol [Acetaminophen] Social History Substance Use Topics - Smoking status: Current Every Day Smoker Packs/day: 1.00 Types: Cigarettes - Smokeless tobacco: Not on file - Alcohol use Not on file Medications reviewed and updated: Yes Citlali Wolfe HISTORY PHYSICAL Observed: 12/01/2017 Status: COMPLETED Source: STEGER 2:51 PM [facility] REPOSITORY HNO ID: [id number] Author: Tamera Menendez Service: (none) Author Type: Physician Type: HANDP Filed: 12/01/2017 3:36 PM Note Text: HISTORY AND PHYSICAL EXAMINATION (IMPACT) SERVICE DATE: 12/01/2017 SERVICE TIME: 2:51 PM PRIMARY CARE PHYSICIAN: Bertha Lyle [employer]ED [employer] OPERATOR[employer]oryC CHIEF COMPLAINT/HISTORY OF PRESENT ILLNESS: Ms. Hall is a 37 year old female referred to me for preoperative evaluation. My final recommendations will be communicated back to the requesting physician/surgeon by the way of the shared medical record. Referring Surgeon: Dr. Torres Date of Surgery: 12/09/17 Planned Surgery/Procedure: NEPHRECTOMY PARTIAL ADULT, Left Indication for Planned Surgery / Procedure: L renal mass Refer to Assessment section for details of any comorbidities. Patient is Able to Perform the Following Physical Activity: Climb a flight of stairs or walk up a hill (5.50 METs) Patient denies any chest pain or undue shortness of breath with the above physical activity. Patient's functional class is II-III based on self-reported physical activity. Significant Anesthesia Considerations: None. PAST MEDICAL/SURGICAL/FAMILY/SOCIAL HISTORY PAST MEDICAL HISTORY Diagnosis Date - Depression - DM2 (diabetes mellitus, type 2) (HCC) - HLD (hyperlipidemia) - Hx of acute pyelonephritis - Morbid obesity (HCC) - Reactive airway disease - Renal mass - Smoker PAST SURGICAL HISTORY Procedure Laterality Date - SECTION HX 2006 - TUBAL LIGATION HX 2006 FAMILY HISTORY Problem Relation Age of Onset - Blindness Maternal Grandmother SOCIAL HISTORYSocial History Marital status: Spouse name: Years of education: Number of children: Social History Main Topics Smoking status: Current Every Day Smoker Packs/day: 1.00 Years: 0.00 Types: Cigarettes Smokeless tobacco: Never Used Alcohol use: No Drug use: No MEDICATIONS/ALLERGIES Current Outpatient Prescriptions: exenatide microspheres (BYDUREON SUBCUTANEOUS) Inject subcutaneously once each week. Disp: Rfl: ibuprofen (MOTRIN ORAL) Take 1 tablet by mouth as needed. 800 mg Disp: Rfl: insulin glargine (BASAGLAR KWIKPEN U-100 INSULIN) 100 unit/mL (3 mL) inpn Inject 35-40 Units subcutaneously daily at bedtime. Disp: Rfl: glipiZIDE (GLUCOTROL) 10 mg tablet Take 2 in am before breakfast and 2 before evening meal. Disp: Rfl: blood sugar diagnostic (FREESTYLE LITE STRIPS) test strip Test blood sugar(s)3daily. Dx: diabetes type 2 uncontrolled.. Insulin: No, titrating medication Disp: 100 Strip Rfl: 3 Lancets lancets Use as instructed up to 4 times daily Disp: 120 Each Rfl: 11 metFORMIN (GLUCOPHAGE) 1,000 mg tablet Take 1 tablet by mouth twice daily with meals. Disp: 60 tablet Rfl: 3 Blood-Glucose Meter (FREESTYLE LITE METER) monitoring kit As directed Disp: 1 Each Rfl: 0 albuterol HFA (PROVENTIL HFA, VENTOLIN HFA) 90 mcg/actuation inhaler Inhale 2 Puffs as instructed. Disp: Rfl: cyclobenzaprine (FLEXERIL) 10 mg tablet Take 1 tablet by mouth three times daily as needed for Muscle Spasm. Disp: Rfl: No current facility-administered medications for this visit. ALLERGIES Allergen Reactions - Clindamycin Hives, Itching - Tylenol [Acetaminop* Hives, GI Upset REVIEW OF SYSTEMS General: No weight loss, malaise or fevers. Neuro: No history of TIA's, stroke, BENCH TECHNICIAN tumor, impaired sensorium, hemiplegia, paraplegia or quadriplegia. No neurological symptoms or problems. Respiratory: Asthma - uses albuterol inhaler nearly daily, not on controller meds. Denies BECKER Cardiovascular: No history of HTN requiring medication, no history of angina, CHF, IA, cardiac surgery or stents. Denies rest pain, gangrene or revascularization/amputation for PVD. No history of cardiovascular symptoms or problems. GI: No history of GI symptoms or problems. No history of esophageal varices, recent ascites, or ETOH greater than 2 drinks per day. : renal mass, denies recent UTIs TRANSCRIPTION: LMP - 11/20/17 Endocrine: T2DM - on glargine + oral agents, no known complications. Denies steroid use in the last 3mo. Hematology: No history of bleeding or clotting disorder. No history of hematological symptoms or problems. Oncology: renal mass Psych: Anxiety, Depression PHYSICAL EXAM VITALS: BP 132/86 Pulse 94 Temp (Src) 98.4 (Oral) Ht 5' 5 (1.65m) Wt 333 lb (151.0kg) SpO2 99% LMP 11/20/2017 BMI 55.41 kg/(m2). General: Alert and oriented, Morbidly obese Skin: Normal color, no rash, no lesions. Neck: no palpable masses or LNs Cardiovascular: Normal S1 AND S2, no rubs, murmurs or gallops. No JVD. Pulse regular. Lungs: Normal breath sounds, no wheezes or crackles. Abdomen: Soft, non-tender, no rigidity. Extremities: No deformity, no edema or tenderness, no joint swelling or clubbing. Neurological: Normal cognition and motor skills. ASSESSMENT Ms. Hall is a 37 year old female referred to me for preoperative evaluation. Patient has the following medical comorbidities which might affect the perioperative course: - T2DM: on insulin and oral agents, no known complications per pt, issues with hull sorter hypoglycemia per pt - Asthma: moderate persistent with nearly daily use of albuterol, not on controller meds - L renal mass - Morbid obesity: without diagnosis of JOHNY but high risk for JOHNY - Smoker: 1ppd, counseled to quit Patient's RCRI (Revised Cardiac Risk Index: CAD/CHF/Stroke or TIA/SCr>2/DM on Insulin/High Risk Surgery) score is 1 and is at low risk for major adverse cardiac events in the perioperative period. Diagnostic tests reviewed for today's visit: Labs 12/01/2017 reviewed: Component Latest Ref Rng AND Units 12/01/2017 WBC 3.70 - 11.00 k/uL 7.59 RBC 3.90 - 5.20 m/uL 4.35 Hemoglobin 11.5 - 15.5 g/dL 11.6 Hematocrit 36.0 - 46.0 % 36.7 MCV 80.0 - 100.0 fL 84.4 MCH 26.0 - 34.0 pG 26.7 MCHC 30.5 - 36.0 g/dL 31.6 RDW-CV 11.5 - 15.0 % 13.6 Platelet Count 150 - 400 k/uL 241 MPV 9.0 - 12.7 fL 9.9 Neut% % 70.8 Abs Neut (ANC) 1.45 - 7.50 k/uL 5.36 Lymph% % 21.5 Abs Lymph 1.00 - 4.00 k/uL 1.63 Martin% % 5.8 Abs Martin <0.87 k/uL 0.44 Eosin% % 1.6 Abs Eosin <0.46 k/uL 0.12 Baso% % 0.3 Abs Baso <0.11 k/uL <0.03 Nucleated Reds 0 /100 WBC 0.0 Absolute nRBC <0.01 k/uL <0.01 Diff Type Auto Diff Protein, Total 6.3 - 8.0 g/dL 5.5 (L) Albumin 3.9 - 4.9 g/dL 3.5 (L) Calcium 8.5 - 10.2 mg/dL 9.0 Bilirubin, Total 0.2 - 1.3 mg/dL 0.2 Alkaline Phosphatase 32 - 117 U/L 99 AST 13 - 35 U/L 12 (L) Glucose 74 - 99 mg/dL 216 (H) BUN 7 - 21 mg/dL 18 Creatinine 0.58 - 0.96 mg/dL 0.62 Sodium 136 - 144 mmol/L 137 Potassium 3.7 - 5.1 mmol/L 4.4 Chloride 97 - 105 mmol/L 102 CO2 22 - 30 mmol/L 26 Anion Gap 9 - 18 mmol/L 9 ALT 7 - 38 U/L 12 eGFR- >60 eGFR-All Other Races . >60 PT Sec 9.7 - 13.0 sec 9.3 (L) PT INR 0.9 - 1.3 <0.9 (L) APTT 23.0 - 32.4 sec 24.0 PLAN/RECOMMENDATIONS CARDIAC: Patient is at optimal cardiac condition for scheduled surgery / procedure. PULMONARY: Patient is at optimal Pulmonary status for scheduled surgery / procedure. Patient is at increased risk for postoperative pulmonary complications. Advised patient to stop smoking. Suggest the following in the post-operative period: Continue bronchodilator medications, Aggressive bronchopulmonary hygiene and Early ambulation - Start flovent given daily asthma symptoms - Monitor pulse-ox postop and use caution with opiates given morbid obesity and high risk for JOHNY. ENDOCRINE: DIABETES: - Initiate [facility] Guidelines for perioperative diabetes management. Check finger stick glucose on the morning of surgery. - Patient has been instructed on Preoperative DM medication management. VASCULAR/ANTICOAGULATION: VTE prophylaxis as deemed appropriate by the surgical service. Pt at acceptable risk to proceed with surgery. Patient Instructions: As per patient instructions section. I have discussed the above recommendations with the patient in detail, in justin and lay terms, and provided a written summary of instructions as needed. We have discussed that no surgery is without risk, but that the goal of preoperative assessment is to optimize that risk, and that was clearly understood by the patient. I have given ample opportunity for the patient to ask questions, and answered all questions to their stated satisfaction. SIGNATURE: Tamera Menendez MD PATIENT NAME: Tess Hall DATE: December 01, 2017 TIME: 2:51 PM CNOV Observed: 12/01/2017 Status: COMPLETED Source: STEGER 2:45 PM [facility] REPOSITORY Office Visit (IMPAMN) TESS HALL ([id number]) 1980 F Date Time Provider Department 12/01/17 2:45 PM TAMERA MENENDEZ During your visit today, we recorded the following information about you: Temperature Pulse Blood pressure Weight 98.4 degrees 94/minute 132/86 151 kg Height Last Period 1.651 m 11/20/17 Tamera Menendez MD 12/01/2017 3:36 PM Signed HISTORY AND PHYSICAL EXAMINATION (IMPACT) SERVICE DATE: 12/01/2017 SERVICE TIME: 2:51 PM PRIMARY CARE PHYSICIAN: RICH PantojaC CHIEF COMPLAINT/HISTORY OF PRESENT ILLNESS: Ms. Hall is a 37 year old female referred to me for preoperative evaluation. My final recommendations will be communicated back to the requesting physician/surgeon by the way of the shared medical record. Referring Surgeon: Dr. Torres Date of Surgery: 12/09/17 Planned Surgery/Procedure: NEPHRECTOMY PARTIAL ADULT, Left Indication for Planned Surgery / Procedure: L renal mass Refer to Assessment section for details of any comorbidities. Patient is Able to Perform the Following Physical Activity: Climb a flight of stairs or walk up a hill (5.50 METs) Patient denies any chest pain or undue shortness of breath with the above physical activity. Patient's functional class is II-III based on self-reported physical activity. Significant Anesthesia Considerations: None. PAST MEDICAL/SURGICAL/FAMILY/SOCIAL HISTORY PAST MEDICAL HISTORY Diagnosis Date - Depression - DM2 (diabetes mellitus, type 2) (HCC) - HLD (hyperlipidemia) - Hx of acute pyelonephritis - Morbid obesity (HCC) - Reactive airway disease - Renal mass - Smoker PAST SURGICAL HISTORY Procedure Laterality Date - SECTION HX 2006 - TUBAL LIGATION HX 2006 FAMILY HISTORY Problem Relation Age of Onset - Blindness Maternal Grandmother SOCIAL HISTORYSocial History Marital status: Spouse name: Years of education: Number of children: Social History Main Topics Smoking status: Current Every Day Smoker Packs/day: 1.00 Years: 0.00 Types: Cigarettes Smokeless tobacco: Never Used Alcohol use: No Drug use: No MEDICATIONS/ALLERGIES Current Outpatient Prescriptions: exenatide microspheres (BYDUREON SUBCUTANEOUS) Inject subcutaneously once each week. Disp: Rfl: ibuprofen (MOTRIN ORAL) Take 1 tablet by mouth as needed. 800 mg Disp: Rfl: insulin glargine (BASAGLAR KWIKPEN U-100 INSULIN) 100 unit/mL (3 mL) inpn Inject 35-40 Units subcutaneously daily at bedtime. Disp: Rfl: glipiZIDE (GLUCOTROL) 10 mg tablet Take 2 in am before breakfast and 2 before evening meal. Disp: Rfl: blood sugar diagnostic (FREESTYLE LITE STRIPS) test strip Test blood sugar(s)3daily. Dx: diabetes type 2 uncontrolled.. Insulin: No, titrating medication Disp: 100 Strip Rfl: 3 Lancets lancets Use as instructed up to 4 times daily Disp: 120 Each Rfl: 11 metFORMIN (GLUCOPHAGE) 1,000 mg tablet Take 1 tablet by mouth twice daily with meals. Disp: 60 tablet Rfl: 3 Blood-Glucose Meter (FREESTYLE LITE METER) monitoring kit As directed Disp: 1 Each Rfl: 0 albuterol HFA (PROVENTIL HFA, VENTOLIN HFA) 90 mcg/actuation inhaler Inhale 2 Puffs as instructed. Disp: Rfl: cyclobenzaprine (FLEXERIL) 10 mg tablet Take 1 tablet by mouth three times daily as needed for Muscle Spasm. Disp: Rfl: No current facility-administered medications for this visit. ALLERGIES Allergen Reactions - Clindamycin Hives, Itching - Tylenol [Acetaminop* Hives, GI Upset REVIEW OF SYSTEMS General: No weight loss, malaise or fevers. Neuro: No history of TIA's, stroke, BENCH TECHNICIAN tumor, impaired sensorium, hemiplegia, paraplegia or quadriplegia. No neurological symptoms or problems. Respiratory: Asthma - uses albuterol inhaler nearly daily, not on controller meds. Denies BECKER Cardiovascular: No history of HTN requiring medication, no history of angina, CHF, IA, cardiac surgery or stents. Denies rest pain, gangrene or revascularization/amputation for PVD. No history of cardiovascular symptoms or problems. GI: No history of GI symptoms or problems. No history of esophageal varices, recent ascites, or ETOH greater than 2 drinks per day. : renal mass, denies recent UTIs TRANSCRIPTION: LMP - 11/20/17 Endocrine: T2DM - on glargine + oral agents, no known complications. Denies steroid use in the last 3mo. Hematology: No history of bleeding or clotting disorder. No history of hematological symptoms or problems. Oncology: renal mass Psych: Anxiety, Depression PHYSICAL EXAM VITALS: BP 132/86 Pulse 94 Temp (Src) 98.4 (Oral) Ht 5' 5 (1.65m) Wt 333 lb (151.0kg) SpO2 99% LMP 11/20/2017 BMI 55.41 kg/(m2). General: Alert and oriented, Morbidly obese Skin: Normal color, no rash, no lesions. Neck: no palpable masses or LNs Cardiovascular: Normal S1 AND S2, no rubs, murmurs or gallops. No JVD. Pulse regular. Lungs: Normal breath sounds, no wheezes or crackles. Abdomen: Soft, non-tender, no rigidity. Extremities: No deformity, no edema or tenderness, no joint swelling or clubbing. Neurological: Normal cognition and motor skills. ASSESSMENT Ms. Hall is a 37 year old female referred to me for preoperative evaluation. Patient has the following medical comorbidities which might affect the perioperative course: - T2DM: on insulin and oral agents, no known complications per pt, issues with hull sorter hypoglycemia per pt - Asthma: moderate persistent with nearly daily use of albuterol, not on controller meds - L renal mass - Morbid obesity: without diagnosis of JOHNY but high risk for JOHNY - Smoker: 1ppd, counseled to quit Patient's RCRI (Revised Cardiac Risk Index: CAD/CHF/Stroke or TIA/SCr>2/DM on Insulin/High Risk Surgery) score is 1 and is at low risk for major adverse cardiac events in the perioperative period. Diagnostic tests reviewed for today's visit: Labs 12/01/2017 reviewed: Component Latest Ref Rng AND Units 12/01/2017 WBC 3.70 - 11.00 k/uL 7.59 RBC 3.90 - 5.20 m/uL 4.35 Hemoglobin 11.5 - 15.5 g/dL 11.6 Hematocrit 36.0 - 46.0 % 36.7 MCV 80.0 - 100.0 fL 84.4 MCH 26.0 - 34.0 pG 26.7 MCHC 30.5 - 36.0 g/dL 31.6 RDW-CV 11.5 - 15.0 % 13.6 Platelet Count 150 - 400 k/uL 241 MPV 9.0 - 12.7 fL 9.9 Neut% % 70.8 Abs Neut (ANC) 1.45 - 7.50 k/uL 5.36 Lymph% % 21.5 Abs Lymph 1.00 - 4.00 k/uL 1.63 Martin% % 5.8 Abs Martin <0.87 k/uL 0.44 Eosin% % 1.6 Abs Eosin <0.46 k/uL 0.12 Baso% % 0.3 Abs Baso <0.11 k/uL <0.03 Nucleated Reds 0 /100 WBC 0.0 Absolute nRBC <0.01 k/uL <0.01 Diff Type Auto Diff Protein, Total 6.3 - 8.0 g/dL 5.5 (L) Albumin 3.9 - 4.9 g/dL 3.5 (L) Calcium 8.5 - 10.2 mg/dL 9.0 Bilirubin, Total 0.2 - 1.3 mg/dL 0.2 Alkaline Phosphatase 32 - 117 U/L 99 AST 13 - 35 U/L 12 (L) Glucose 74 - 99 mg/dL 216 (H) BUN 7 - 21 mg/dL 18 Creatinine 0.58 - 0.96 mg/dL 0.62 Sodium 136 - 144 mmol/L 137 Potassium 3.7 - 5.1 mmol/L 4.4 Chloride 97 - 105 mmol/L 102 CO2 22 - 30 mmol/L 26 Anion Gap 9 - 18 mmol/L 9 ALT 7 - 38 U/L 12 eGFR- >60 eGFR-All Other Races . >60 PT Sec 9.7 - 13.0 sec 9.3 (L) PT INR 0.9 - 1.3 <0.9 (L) APTT 23.0 - 32.4 sec 24.0 PLAN/RECOMMENDATIONS CARDIAC: Patient is at optimal cardiac condition for scheduled surgery / procedure. PULMONARY: Patient is at optimal Pulmonary status for scheduled surgery / procedure. Patient is at increased risk for postoperative pulmonary complications. Advised patient to stop smoking. Suggest the following in the post-operative period: Continue bronchodilator medications, Aggressive bronchopulmonary hygiene and Early ambulation - Start flovent given daily asthma symptoms - Monitor pulse-ox postop and use caution with opiates given morbid obesity and high risk for JOHNY. ENDOCRINE: DIABETES: - Initiate [facility] Guidelines for perioperative diabetes management. Check finger stick glucose on the morning of surgery. - Patient has been instructed on Preoperative DM medication management. VASCULAR/ANTICOAGULATION: VTE prophylaxis as deemed appropriate by the surgical service. Pt at acceptable risk to proceed with surgery. Patient Instructions: As per patient instructions section. I have discussed the above recommendations with the patient in detail, in justin and lay terms, and provided a written summary of instructions as needed. We have discussed that no surgery is without risk, but that the goal of preoperative assessment is to optimize that risk, and that was clearly understood by the patient. I have given ample opportunity for the patient to ask questions, and answered all questions to their stated satisfaction. SIGNATURE: Tamera Menendez MD PATIENT NAME: Tess Hall DATE: December 01, 2017 TIME: 2:51 PM Citlali Wolfe 12/01/2017 3:36 PM Signed Tess Hall is a 37 year old female here today for visit in [facility] Referring Surgeon: Dr. Torres Date of Surgery: 12/09/2017 Planned Surgery/Procedure: NEPHRECTOMY PARTIAL ADULT Allergies have been reviewed and verified. They include the following: Clindamycin; Tylenol [Acetaminophen] Social History Substance Use Topics - Smoking status: Current Every Day Smoker Packs/day: 1.00 Types: Cigarettes - Smokeless tobacco: Not on file - Alcohol use Not on file Medications reviewed and updated: Yes Citlali Menendez MD 12/01/2017 3:31 PM Addendum [facility] Patient Instructions for Surgery FOOD INSTRUCTIONS: NO solid food or liquids after midnight the night before surgery. MEDICATION INSTRUCTIONS: Prior to Surgery: Do not take the following medications for 7 days prior to surgery: - any NSAID's (e.g. Motrin, Aleve, Arthrotec, Naproxen,etc) - any herbal preparations - Aspirin or aspirin containing products Do not take any Vitamin E / multivitamins for 10-14 days before surgery You are allowed to take Tylenol if needed until the day of surgery. MEDICATION INSTRUCTIONS: Day/Morning of Surgery: NO PILLS on the morning of surgery. - Please bring your albuterol inhaler with you on the day of surgery. Use it if needed. DIABETES MANAGEMENT INSTRUCTIONS: Eat a usual diet until the day prior to surgery unless indicated by your surgeon/physician. If your blood sugar is below 70 mg/dl at any time, treat with ? cup of apple juice or susan tiffany, or 4 glucose tabs or 1 tube of oral glucose gel. - You can take your Bydureon on Thursday this week like normal MEDICATION INSTRUCTIONS: Prior to Surgery: ? Take all of your diabetic pills (metformin, glipizide) ? The night before surgery, take 26 units of your glargine insulin MEDICATION INSTRUCTIONS: Day/Morning of Surgery: ? Do not take your Diabetic pills. If you have any questions or concerns regarding today's visit please do not hesitate to contact the [facility] at [phone] or [phone], bmr [phone]. Signature: Tamera Menendez MD Date: December 01, 2017 Referring Provider: SELF [[id number]] Allergies As of Date: 12/01/2017 Noted Allergy Reaction CLINDAMYCIN 08/17/2017 4 - Hives 9 - Itching TYLENOL (ACETAMINOPHEN) 08/17/2017 4 - Hives 8 - GI Upset Date Reviewed: 12/01/2017 Reviewed by: Citlali Wolfe - Fully Assessed Primary Visit Diagnosis:Pre-operative examination [Z01.818] Other Visit Diagnoses:Screening for genitourinary condition [Z13.89] Renal mass [N28.89] Morbid obesity (HCC) [E66.01] Uncontrolled type 2 diabetes mellitus without complication, without long-term current use of insulin (HCC) [E11.65] Smoker [F17.200] Moderate persistent asthma without complication [J45.40] Order(s):insulin glargine (BASAGLAR KWIKPEN U-100 INSULIN) 100 unit/mL (3 mL) inpnInject 35-40 Units subcutaneously daily at bedtime.Disp: Rfl: cyclobenzaprine (FLEXERIL) 10 mg tabletTake 1 tablet by mouth three times daily as needed for Muscle Spasm.Disp: Rfl: fluticasone (FLOVENT HFA) 110 mcg/actuation inhalerInhale 1 Puff as instructed twice daily. Rinse your mouth after each use.Disp: 1 InhalerRfl: 0 Prescriptions as of 12/01/2017 Sig: BYDUREON SUBCUTANEOUS Inject subcutaneously once ea* MOTRIN ORAL Take 1 tablet by mouth as nee* INSULIN GLARGINE (U-100) 100 * Inject 35-40 Units subcutaneo* GLIPIZIDE 10 MG TABLET Take 2 in am before breakfast* BLOOD SUGAR DIAGNOSTIC STRIPS Test blood sugar(s)3daily. D* LANCETS Use as instructed up to 4 azar* METFORMIN 1,000 MG TABLET Take 1 tablet by mouth twice * BLOOD-GLUCOSE METER KIT As directed ALBUTEROL SULFATE HFA 90 MCG/* Inhale 2 Puffs as instructed. CYCLOBENZAPRINE 10 MG TABLET Take 1 tablet by mouth three * FLUTICASONE 110 MCG/ACTUATION* Inhale 1 Puff as instructed t* Problem List As Of Date 12/01/2017 Noted Resolved Diabetes mellitus type 2, uncontrolled, without*INVALID FOR* Asthma with COPD with exacerbation (HCC) [J44.1*INVALID FOR*06/28/2015 HTN (hypertension) [I10] INVALID FOR* Anxiety [F41.9] INVALID FOR* Asthma [J45.909] INVALID FOR* Non morbid obesity [E66.9] INVALID FOR* NO SHOW INVALID FOR* Renal mass [N28.89] INVALID FOR* Morbid obesity (HCC) [E66.01] INVALID FOR* Obesity, Class III, BMI >= 40 [E66.01] INVALID FOR* Other instructions from your clinician: [facility] Patient Instructions for Surgery FOOD INSTRUCTIONS: NO solid food or liquids after midnight the night before surgery. MEDICATION INSTRUCTIONS: Prior to Surgery: Do not take the following medications for 7 days prior to surgery: - any NSAID's (e.g. Motrin, Aleve, Arthrotec, Naproxen,etc) - any herbal preparations - Aspirin or aspirin containing products Do not take any Vitamin E / multivitamins for 10-14 days before surgery You are allowed to take Tylenol if needed until the day of surgery. MEDICATION INSTRUCTIONS: Day/Morning of Surgery: NO PILLS on the morning of surgery. - Please bring your albuterol inhaler with you on the day of surgery. Use it if needed. DIABETES MANAGEMENT INSTRUCTIONS: Eat a usual diet until the day prior to surgery unless indicated by your surgeon/physician. If your blood sugar is below 70 mg/dl at any time, treat with ? cup of apple juice or susan tiffany, or 4 glucose tabs or 1 tube of oral glucose gel. - You can take your Bydureon on Thursday this week like normal MEDICATION INSTRUCTIONS: Prior to Surgery: ? Take all of your diabetic pills (metformin, glipizide) ? The night before surgery, take 26 units of your glargine insulin MEDICATION INSTRUCTIONS: Day/Morning of Surgery: ? Do not take your Diabetic pills. If you have any questions or concerns regarding today's visit please do not hesitate to contact the [facility] at [phone] or [phone], ext [phone]. Signature: Tamera Menendez MD Date: December 01, 2017 Prescriptions ordered this encounter Disp Refills Start End INSULIN GLARGINE (U-100) 100 UNIT/ML* 12/01/2017 Class: Med Update Route: SUBCUTANEOUS Sig: Inject 35-40 Units subcutaneously daily at bedtime. CYCLOBENZAPRINE 10 MG TABLET 12/01/2017 Class: Med Update Route: ORAL Sig: Take 1 tablet by mouth three times daily as needed for Muscle Spasm. FLUTICASONE 110 MCG/ACTUATION HFA AE* 1 In* 0 12/01/2017 Route: INHALATION Sig: Inhale 1 Puff as instructed twice daily. Rinse your mouth after each use. Medications Discontinued During This Encounter insulin glargine (BASAGLAR KWIKPEN U* 12/01/2017 Class: Historical Med Route: SUBCUTANEOUS Sig: Inject 50 Units subcutaneously daily at bedtime. Disc: Reason for discontinue is not on file. Encounter Status:Closed by TAMERA MENENDEZ MD on 12/01/17 CT KIDNEY WO/W Observed: 12/01/2017 Status: F Source: STEGER IVCON 2:21 PM [facility] REPOSITORY * * *Final Report* * * DATE OF EXAM: Dec 01 2017 2:21PM [facility] [place] IVCON / PROCEDURE REASON: Other specified disorders of kidney and ureter * * * * Physician Interpretation * * * * EXAMINATION: CT ABDOMEN (KIDNEY) WITHOUT AND WITH IV CONTRAST CLINICAL HISTORY: Left renal mass characterization and staging. TECHNIQUE: Spiral imaging in three phases through the kidneys and including the entire abdomen was performed utilizing IV contrast only. No oral contrast was given. Arterial phase MIP, and nephrographic phase oblique coronal and sagittal reformations were created from thin-slice images under physician supervision on the imaging modality workstation. M: [id number] Contrast: IV: 120 ml of Omnipaque 350 Oral Contrast: None CT Radiation dose: Integrated dose-length product (DLP) for this visit = 2372 mGy*cm. CT Dose Reduction Employed: Automated exposure control (AEC) COMPARISON: Outside study 07/16/2017. RESULT: Kidneys, adrenals and ureters: Right kidney: Normal, without mass or calculus. Right renal vasculature Arterial anatomy: 2, patent. No early branch (< 1cm). Venous anatomy: single. Right ureter: Single ureter. No hydronephrosis. Right adrenal: Normal, no nodules or thickening Left kidney: 3.3 cm posterior mid to lower pole posterior central heterogeneously enhancing neoplasm (12:103) that extends within the central sinus and effaces calyces. Left renal vasculature Arterial anatomy: 2 LEFT renal arteries, the main artery has an upper pole branch arising approximately 0.5 cm from the origin, there is an accessory artery arising 1 cm below the main and supplies the lower pole. Venous anatomy: conventional, anterior to the aorta. Left ureter: Single ureter. No hydronephrosis. Left adrenal: Normal, no nodules or thickening Retroperitoneal lymphadenopathy and IVC involvement: No retroperitoneal lymphadenopathy. No IVC tumor thrombus. Abdomen and pelvis: Liver: No mass. Normal contour. No fatty change. Biliary: No bile duct dilation. Contracted gallbladder. Spleen: No mass. No splenomegaly. Pancreas: No mass or duct dilation. GI tract: No dilation or wall thickening. Lymph nodes (other): No abdominal lymphadenopathy. Mesentery/Peritoneum: No ascites or mass. Retroperitoneum: No mass. Vasculature: No abdominal aortic aneurysm. Bones/Soft Tissues: No acute findings. Lower thorax: Focal atelectasis in the RIGHT lower lobe. No pleural effusion or pulmonary parenchymal nodule. IMPRESSION: 3.3 cm central mid to lower pole posterior enhancing renal mass, likely clear cell carcinoma. No renal vein involvement, lymphadenopathy or adrenal involvement. There are 2 LEFT renal arteries, the main artery with an early artery branch. Single LEFT renal vein without tumor thrombus. Metal Rolling Mill Operator: MYRON Transcribe Date/Time: Dec 01 2017 3:09P Dictated by : CASANDRA CRANE MD This examination was interpreted and the report reviewed and electronically signed by: CASANDRA CRANE MD on Dec 01 2017 3:18PM EST [id number] PROGRESS Observed: 12/01/2017 Status: COMPLETED Source: STEGER 2:07 PM [facility] REPOSITORY HNO ID: [id number] Author: LIZBETH Delgado (Ct) Service: Radiology Author Type: Clinical Melt House Drag Operator Type: Progress Notes Filed: 12/01/2017 2:13 PM Note Text: Radiology Service Progress Note PATIENT NAME: Tess Hall DATE OF SERVICE: December 01, 2017 TIME: 2:07 PM PATIENT IDENTITY VERIFICATION COMPLETED USING TWO (2) METHODS: Patient confirmed name verbally and ID band matches.. PATIENT GENDER DATA: Female. status: : No status: NO. PATIENT RELEVANT IMPLANT DATA REVIEWED: Yes RADIOLOGY DEPARTMENT: CT; Exam(s) Completed: Kidney PERIPHERAL IV DATA: Site assessment: Clean,Dry and Intact, Site disposition Discontinued SIGNED BY: LIZBETH DELGADO December 01, 2017 2:07 PM PROGRESS Observed: 12/01/2017 Status: COMPLETED Source: STEGER 1:54 PM [facility] REPOSITORY HNO ID: [id number] Author: Lauren RobertsRn) BHARGAVI Ramon Service: Radiology Author Type: Registered Nurse Type: Progress Notes Filed: 12/01/2017 1:57 PM Note Text: Radiology Service Progress Note PATIENT NAME: Tess Hall DATE OF SERVICE: December 01, 2017 TIME: 1:54 PM PATIENT WEIGHT: 333 LBS PATIENT IDENTITY VERIFICATION COMPLETED USING TWO (2) METHODS: Patient confirmed name verbally and ID band matches.. PATIENT GENDER DATA: Female. status: : No status: NO. CONTRAST INDUCED NEPHROPATHY RISK FACTORS: Diabetic: Yes. Current medication(s): Metformin and Insulin Insulin Pump: NO Insulin Pump Removed: N/A. Patient currently has insulin pump?: No. and Diabetic homegoing recommendations given: N/A and History of Kidney surgery, Kidney neoplasm, Liver disease, and/or any recent Nephrotoxic Chemotherapy or other Nephrotoxic medications CREATININE: Creatinine Date Value Ref Range Status 12/01/2017 0.62 0.58 - 0.96 mg/dL Final 08/17/2017 0.62 0.58 - 0.96 mg/dL Final 12/26/2015 0.55 (L) 0.58 - 0.96 mg/dL Final eGFR-All Other Races Date Value Ref Range Status 12/01/2017 >60 . Final Comment: eGFR (Estimated GFR) Units of measure: mL/min/1.73 meters squared eGFR is derived from the reexpressed MDRD Study equation using the following parameters: serum creatinine, age, gender and race. The creatinine assay has been calibrated to be traceable to IDMS. An eGFR <60 mL/min/1.73m2 for >3 months is consistent with chronic kidney disease. Refer to KDOQI guidelines for clinical interpretation. In patients with unstable renal function, e.g. those with acute kidney injury, the eGFR may not accurately reflect actual GFR. eGFR- Date Value Ref Range Status 12/01/2017 >60 Final P.O.C.T. RESULTS: N/A December 01, 2017 TREATMENT: No Hydration needed. ALLERGIES: Reviewed and unchanged CONTRAST ALLERGY: NO. IV SITE: Ambulatory: A peripheral IV was started in the Left antecubital site with a Angio cath: 20 gauge. and A Saline lock was inserted per protocol IV inserted in nuclear medicine, flushes easily with good blood return. IV SITE APPEARANCE: Clean,Dry and Intact SIGNED BY: Lauren Ramon RN December 01, 2017 1:54 PM NM RENAL FLOW/FXN WO Observed: 12/01/2017 Status: F Source: [place] PHARM 1:47 PM [facility] REPOSITORY * * *Final Report* * * DATE OF EXAM: Dec 01 2017 1:47PM N 0036 - NM RENAL FLOW/FXN WO PHARM / PROCEDURE REASON: Other specified disorders of kidney and ureter * * * * Physician Interpretation * * * * RENAL SCAN: HISTORY: 37-year-old female with left renal mass, planning for nephrectomy. TECHNIQUE: 11 mCi Tc 99m MAG-3 IV followed by 30 minutes of dynamic imaging. RESULT: There is Prompt flow to both kidneys. Left kidney: The initial uptake is normal with normal parenchymal tracer clearance noted. There is adequate spontaneous drainage of radiotracer. Right kidney: The initial uptake is normal with normal parenchymal tracer clearance noted. There is adequate spontaneous drainage of radiotracer. By computer analysis, the contribution to total renal function is 52% from the left kidney, and 48% from the right kidney. IMPRESSION: SATISFACTORY FLOW AND FUNCTION. NO EVIDENCE FOR URINARY TRACT OBSTRUCTION. SPLIT RENAL FUNCTION: LEFT: 52%, RIGHT: 48% Metal Rolling Mill Operator: MYRON Transcribe Date/Time: Dec 01 2017 1:55P Dictated by : MARIO BEASLEY MD This examination was interpreted and the report reviewed and electronically signed by: JANNET SAHNI MD on Dec 01 2017 2:15PM EST [id number] PROGRESS Observed: 12/01/2017 Status: COMPLETED Source: STEGER 11:55 AM [facility] REPOSITORY O ID: [id number] Author: Genesis Lynnemt Service: (none) Author Type: (none) Type: Progress Notes Filed: 12/01/2017 1:10 PM Note Text: RADIOLOGY SERVICE PROGRESS NOTE SERVICE DATE: 12/01/2017 SERVICE TIME: 11:56 AM PATIENT IDENTITY VERIFICATION COMPLETED USING TWO (2) METHODS: Patient confirmed name and Date of verbally. PATIENT GENDER DATA: .female : No ALLERGIES: Reviewed and unchanged MEDICATIONS REVIEWED: Not applicable PATIENT RELEVANT IMPLANT DATA REVIEWED: Not Applicable CREATININE: Creatinine Date Value Ref Range Status 08/17/2017 0.62 0.58 - 0.96 mg/dL Final 12/26/2015 0.55 (L) 0.58 - 0.96 mg/dL Final eGFR-All Other Races Date Value Ref Range Status 08/17/2017 >60 . Final Comment: eGFR (Estimated GFR) Units of measure: mL/min/1.73 meters squared eGFR is derived from the reexpressed MDRD Study equation using the following parameters: serum creatinine, age, gender and race. The creatinine assay has been calibrated to be traceable to IDMS. An eGFR <60 mL/min/1.73m2 for >3 months is consistent with chronic kidney disease. Refer to KDOQI guidelines for clinical interpretation. In patients with unstable renal function, e.g. those with acute kidney injury, the eGFR may not accurately reflect actual GFR. eGFR- Date Value Ref Range Status 08/17/2017 >60 Final P.O.C.T. RESULTS: N/A December 01, [address] PERFORMED: No IV SITE: Ambulatory: A peripheral IV was started in the Left antecubital site with a Angio cath: 20 gauge. POST EXAM PIV STATUS: Left in for next appointment PROCEDURE TYPE: NM INJECT: Renal Function Scan.. 11 mCi Tc99m MAG-3. No other medications given.. ADMINISTRATION TIME: 1251 PATIENT DISCHARGED TO: Ambulatory patient, left CT department area. A Diagnostic radioactive procedure has taken place, with no further precautions necessary other than routine body substance precautions. More information regarding radiation safety can be found using this link: [email or web address] SIGNATURE: Genesis [facility] PATIENT NAME: Tess Hall DATE: December 01, 2017 TIME: 11:56 AM PAGER/CONTACT #: CONFIRM BLOOD TYPE Collected: 12/01/2017 Status: F Source: STEGER 11:30 AM [facility] REPOSITORY TYPE CODE TESTS RESULT OUT OF REFERENCE UNITS RANGE LAB %ABR O ABO/RH(D) NEGATIVE Performed By: #### CONABO #### [facility] [address] [id number] CBC AND DIFFERENTIAL Collected: 12/01/2017 Status: F Source: STEGER 11:24 AM [facility] REPOSITORY TYPE CODE TESTS RESULT OUT OF REFERENCE UNITS RANGE LAB WBC 3.70-11.00 k/uL WBC 7.59 LAB RBC 3.90-5.20 m/uL RBC 4.35 LAB HGB 11.5-15.5 g/dL Hemoglobin 11.6 LAB HCT 36.0-46.0 % Hematocrit 36.7 LAB MCV 80.0-100.0 fL MCV 84.4 LAB MCH 26.0-34.0 pG MCH 26.7 LAB MCHC 30.5-36.0 g/dL MCHC 31.6 LAB RDWCV 11.5-15.0 % RDW-CV 13.6 LAB PLTCT 150-400 k/uL Platelet Count 241 LAB MPV 9.0-12.7 fL MPV 9.9 LAB ANEUT % Neut% 70.8 LAB AANEUT 1.45-7.50 k/uL Abs Neut 5.36 LAB ALYMP % Lymph% 21.5 LAB AALYMP 1.00-4.00 k/uL Abs Lymph 1.63 LAB AMONO % Martin% 5.8 LAB AAMONO <0.87 k/uL Abs Martin 0.44 LAB AEOS % Eosin% 1.6 LAB AAEOS <0.46 k/uL Abs Eosin 0.12 LAB ABASO % Baso% 0.3 LAB AABASO <0.11 k/uL Abs Baso <0.03 LAB AUNRBC 0 /100 WBC NRBCs 0.0 LAB ABNRBC <0.01 k/uL Absolute nRBC <0.01 LAB DTYP DTYPE Auto Diff Performed By: #### CBCDIF, PTT, PT, CMP #### [email or web address] [address], [place] [address] APTT Collected: 12/01/2017 Status: F Source: STEGER 11:24 [facility] REPOSITORY TYPE CODE TESTS RESULT OUT OF RANGE REFERENCE UNITS LAB APTT 23.0-32.4 sec APTT 24.0 Result Comment: Unfractionated Heparin Therapeutic Ranges: Standard Heparin Nomogram: 53 to 78 seconds (anti-Xa level of 0.3 to 0.7 U/ml) Low Dose/ACS Nomogram: 49 to 67 seconds (anti-Xa level of 0.2 to 0.5 U/ml) Stroke Treatment Nomogram: 49 to 67 seconds (anti-Xa level of 0.2 to 0.5 U/ml) Note: The APTT therapeutic range has been determined for the current lot of laboratory APTT reagent in use throughout the [facility]. Performed By: #### CBCDIF, PTT, PT, CMP #### [email or web address] [address], [place] [address] PROTIME Collected: 12/01/2017 Status: F Source: STEGER 11:24 AM [facility] REPOSITORY TYPE CODE TESTS RESULT OUT OF RANGE REFERENCE UNITS LAB PSEC 9.7-13.0 sec Low PT Sec 9.3 Result Comment: Result rechecked. LAB INR 0.9-1.3 Low PT INR <0.9 Result Comment: Vitamin K Antagonist (VKA) Therapeutic Range: INR 2 to 3 (Target INR of 2.5) Note: For patients treated with VKA drugs, such as warfarin, the [place] [employer] 2012 Guideline recommends a therapeutic INR range of 2 to 3 (target INR of 2.5). This recommendation includes high-risk patients with antiphospholipid syndrome with previous arterial or venous thromboembolism, current-generation mechanical or bioprosthetic aortic heart valve replacement. Note: Patients with mechanical aortic valve replacement and additional risk factors for thromboembolic events (atrial fibrillation, previous thromboembolism, LV dysfunction, hypercoagulable conditions) or an older generation mechanical AVR (i.e., ball in-Cage) or any mechanical MVR should have a INR therapeutic range of 2.5 to 3.5 (target INR of 3). Louise GH, et al. Chest 2012, 141:7S-47S Alison GALDAMEZ et al. [facility] 2017, 70: 252-289 Result rechecked. Sample checked for a clot. Performed By: #### CBCDIF, PTT, PT, CMP #### [facility] [address] [place], [place] [address] COMP METABOLIC PANEL Collected: 12/01/2017 Status: F Source: STEGER 11:24 AM [facility] [place] REPOSITORY TYPE CODE TESTS RESULT OUT OF REFERENCE UNITS RANGE LAB TP 6.3-8.0 g/dL Low Protein, Total 5.5 LAB ALB 3.9-4.9 g/dL Low Albumin 3.5 LAB CA 8.5-10.2 mg/dL Calcium, Total 9.0 LAB TBIL 0.2-1.3 mg/dL Bilirubin, Total 0.2 LAB ALKP 32-117 U/L Alkaline Phosphatase 99 LAB AST 13-35 U/L Low AST 12 LAB GLU 74-99 mg/dL Glucose High 216 Result Comment: The [place] [employer] (ADA) provides guidance for cutoff values for fasting glucose and random glucose. The ADA defines fasting as no caloric intake for at least 8 hours. Fas ting plasma glucose results between 100 to 125 mg/dL indicate increased risk for diabetes (prediabetes). Fasting plasma glucose results greater than or equal to 126 mg/dL meet the criteria for diagnosis of diabetes. In the absence of unequivocal hyperglycemia, results should be confirmed by repeat testing. In a patient with classic symptoms of hyperglycemia or hyperglycemic crisis, random plasma glucose results greater than or equal to 200 mg/dL meet the criteria for diagnosis of diabetes. Reference: Standards of Medical Care in Diabetes 2016, [place] [employer]. Diabetes Care. 2016.39(Suppl 1). LAB BUN 7-21 mg/dL BUN 18 LAB CRET 0.58-0.96 mg/dL Creatinine 0.62 LAB NA 136-144 mmol/L Sodium 137 LAB K 3.7-5.1 mmol/L Potassium 4.4 LAB CL 97-105 mmol/L Chloride 102 LAB CO2 22-30 mmol/L CO2 26 LAB AGAP 9-18 mmol/L Anion Gap 9 LAB ALT 7-38 U/L ALT 12 LAB GFRAA eGFR- Amer. >60 LAB GFRNAA . eGFR-All Other Races >60 Result Comment: eGFR (Estimated GFR) Units of measure: mL/min/1.73 meters squared eGFR is derived from the reexpressed MDRD Study equation using the following parameters: serum creatinine, age, gender and race. The creatinine assay has been calibrated to be traceable to IDMS. An eGFR <60 mL/min/1.73m2 for >3 months is consistent with chronic kidney disease. Refer to KDOQI guidelines for clinical interpretation. In patients with unstable renal function, e.g. those with acute kidney injury, the eGFR may not accurately reflect actual GFR. Performed By: #### CBCDIF, PTT, PT, CMP #### [email or web address] [address] [place], [place] [address] TYPE AND SCR (30D) Collected: 12/01/2017 Status: F Source: STEGER 11:24 AM [facility] REPOSITORY TYPE CODE TESTS RESULT OUT OF REFERENCE UNITS RANGE LAB %ABR O ABO/RH(D) NEGATIVE LAB % Antibody NEG Screen Performed By: #### [email or web address] #### [email or web address] [address] [place], [place] [address] CNOV Observed: 12/01/2017 Status: COMPLETED Source: STEGER 10:45 AM [facility] REPOSITORY Office Visit (UROLMN) TESS HALL ([id number]) 1980 F Date Time Provider Department 12/01/17 10:45 AM PROSPER MAY (FRE[employer] TRAFFIC CONSULTANT) UROTAMMY During your visit today, we recorded the following information about you: Temperature Pulse Blood pressure Weight 98.5 degrees 104/minute 148/101 151 kg Height 1.651 m Prosper May APRN.CNP 12/01/2017 10:52 AM Signed [facility] PRE-OP NOTE Tess Hall is a 37 year old female. Pre-op Date: December 01, 2017 Date of Procedure: 12/09/2017 Procedure/Surgery: L NEPHRECTOMY PARTIAL ADULT Diagnosis: L renal mass Primary Surgeon: MD Torres Steven LurnQquest Score: TBD BP 148/101 (BP Site: Left Arm, BP Position: Sitting, BP Cuff Size: Large Adult) Pulse 104 Temp 36.9 ?C (98.5 ?F) (Left Tympanic) Ht 165.1 cm (5' 5) Wt (!) 151 kg (333 lb) BMI 55.41 kg/m? Pain Assessment: Are you currently having pain? Yes LOCATION: L flank PAIN SCALE: 7 on a scale of 0-10 PAIN CHARACTER: shooting Surgical Guide Book Status: Patient given book today. Dialysis Guide Book Status: N/A Allergies Reviewed: Yes Medications Reviewed: Yes Is patient currently on oral steroids?: No Has the patient had a UTI in the past month?: No. Does the patient have any artificial joints (last 2 years), metal parts, pacemakers or cardiac/ureteral stents in place?: No Does the patient have diabetes?: Yes Is the patient routinely taking anticoagulants?: Yes. Patient stopped Ibuprofen on 12/02. Can the patient have an IV put in either arm?: Yes Urine Dip Complete?: Yes URINE CULTURE COMPLETE?: Yes Ostomy/Stoma Nurse appointment made/completed: N/A IMPACT/Medical Clearance: Cleared per IMPACT - To be seen [facility]: Cleared per [facility] - To be seen All testing on cureform has been scheduled: Yes Consent Signed: Yes. DOS Orders Placed and Signed: Yes. Pre-op HANDP Done by Impact: To be done by [facility]. PATIENT INSTRUCTIONS FOR SURGERY 1.) DO NOT HAVE ANYTHING TO EAT AFTER MIDNIGHT THE DAY BEFORE SURGERY except for certain morning medications as instructed by the doctor. Candy, mints, gum, and smoking are NOT permitted. You may drink clear liquids (Sprite, water, susan tiffany) up to two hours before your arrival time on the day of surgery. 2.) Medications to be taken on the morning of surgery with a few sips of water: per IMPACT 3.) Please bring all your prescribed inhalers (if you have any you normally take) to the hospital. 4.) Arrival time: Call for arrival. 5.) Prep given: No 6.) Lovenox instructions given: No 7.) Patient reminded that surgery time provided day before surgery is tentative based on potential changes with transplants. Recommendations: This patient is optimally prepared for surgery pending [facility], [facility] and LABS. Prosper May APRN.JOHNNY Electronically signed Referring Provider: SELF [[id number]] Allergies As of Date: 12/01/2017 Noted Allergy Reaction CLINDAMYCIN 08/17/2017 4 - Hives 9 - Itching TYLENOL (ACETAMINOPHEN) 08/17/2017 4 - Hives 8 - GI Upset Date Reviewed: 12/01/2017 Reviewed by: Prosper (Johnny) Edgardo - Fully Assessed Primary Visit Diagnosis:Renal mass [N28.89] Other Visit Diagnosis:Screening for genitourinary condition [Z13.89] Order(s):UA CHEMSTRIP ONLY [SQUA] Order #: [id number] FUTURE UA CHEMSTRIP ONLY [SQUA] Order #: [id number]. #:[id number] URINE CULTURE [SQURCUL] Order #: [id number] Prescriptions as of 12/01/2017 Sig: BYDUREON SUBCUTANEOUS Inject subcutaneously once ea* INSULIN GLARGINE (U-100) 100 * Inject 50 Units subcutaneousl* GLIPIZIDE 10 MG TABLET Take 2 in am before breakfast* BLOOD SUGAR DIAGNOSTIC STRIPS Test blood sugar(s)3daily. D* LANCETS Use as instructed up to 4 azar* METFORMIN 1,000 MG TABLET Take 1 tablet by mouth twice * BLOOD-GLUCOSE METER KIT As directed ALBUTEROL SULFATE HFA 90 MCG/* Inhale 2 Puffs as instructed. Problem List As Of Date 12/01/2017 Noted Resolved Diabetes mellitus type 2, uncontrolled, without*INVALID FOR* Asthma with COPD with exacerbation (HCC) [J44.1*INVALID FOR*06/28/2015 HTN (hypertension) [I10] INVALID FOR* Anxiety [F41.9] INVALID FOR* Asthma [J45.909] INVALID FOR* Non morbid obesity [E66.9] INVALID FOR* NO SHOW INVALID FOR* Renal mass [N28.89] INVALID FOR* Morbid obesity (HCC) [E66.01] INVALID FOR* Encounter Status:Closed by PROSPER MAY CNP on 12/01/17 Observed: 12/01/2017 Status: F Source: [facility] URINE CULTURE 10:26 AM [facility] REPOSITORY Culture Result - >=100,000 CFU/ml Escherichia coli --> ABNORMAL ALERT ORGANISM: Escherichia coli METHOD: Minimum inhibitory concentration(Vitek) Antibiotic Interp PATTI Status Ampicillin RESISTANT >=32 F Gentamicin SUSCEPTIBLE <=1 F Trimeth sulfameth RESISTANT >=320 F Cefazolin RESISTANT >=64 F Ciprofloxacin SUSCEPTIBLE <=0.25 F Nitrofurantoin SUSCEPTIBLE <=16 F Cefepime SUSCEPTIBLE <=1 F Piperacillin/Tazobac SUSCEPTIBLE 8 F Ampicillin Sulbact RESISTANT >=32 F Ceftriaxone RESISTANT 16 F Meropenem SUSCEPTIBLE <=0.25 F Ertapenem SUSCEPTIBLE <=0.5 F Performed By: #### URCUL #### [facility] [address] [place], [place] [address] URINALYSIS Collected: 12/01/2017 Status: F Source: STEGER 10:12 AM [facility] REPOSITORY TYPE CODE TESTS RESULT OUT OF RANGE REFERENCE UNITS LAB UCOL Yellow Color Yellow LAB [facility] Clear Clarity Abnormal Cloudy Alert LAB UGLUC Negative mg/dL Glucose, Abnormal Urine 300 Alert LAB UBIL Negative Bilirubin, Urine Negative LAB UKET Negative Ketones, Urine Negative LAB USPG 1.005-1.030 Specific [place], Ur 1.028 LAB UHGB Negative Hemoglobin/Blood, Negative Ur LAB UPH 4.5-8.0 pH 5.5 LAB UPROT Negative mg/dL Protein, Abnormal Urine Trace Alert LAB UUROB Normal Urobilinogen Normal LAB UNITR Negative Nitrites Abnormal Positive Alert LAB ULKEST Negative Leukest Negative LAB UCOM Comments SEE COMMENT Result Comment: Microscopic Examination Performed LAB UWBC 0-5 /HPF WBC 0-5 LAB URBC 0-3 /HPF RBC 0-3 LAB UCAST 0 /LPF Abnormal Alert Cast SEE COMMENT Result Comment: 1-3 Hyaline Cast LAB UEPI /HPF Epithelial SEE Cells COMMENT Result Comment: Few Squamous Epithelial Cells LAB UMCOM Urine SEE Patti Comment COMMENT Result Comment: N/A Performed By: #### UA #### [facility] [address] [place], [place] [address] PROGRESS Observed: 12/01/2017 Status: COMPLETED Source: STE[facility] 8:31 AM [facility] REPOSITORY HNO ID: [id number] Author: Prosper Ash) Edgardo Service: (none) Author Type: Nurse Practitioner Type: Progress Notes Filed: 12/01/2017 10:52 AM Note Text: [facility] PRE-OP NOTE Tess Hall is a 37 year old female. Pre-op Date: December 01, 2017 Date of Procedure: 12/09/2017 Procedure/Surgery: L NEPHRECTOMY PARTIAL ADULT Diagnosis: L renal mass Primary Surgeon: MD Brian, Heather Harri Score: TBD BP 148/101 (BP Site: Left Arm, BP Position: Sitting, BP Cuff Size: Large Adult) Pulse 104 Temp 36.9 ?C (98.5 ?F) (Left Tympanic) Ht 165.1 cm (5' 5) Wt (!) 151 kg (333 lb) BMI 55.41 kg/m? Pain Assessment: Are you currently having pain? Yes LOCATION: L flank PAIN SCALE: 7 on a scale of 0-10 PAIN CHARACTER: shooting Surgical Guide Book Status: Patient given book today. Dialysis Guide Book Status: N/A Allergies Reviewed: Yes Medications Reviewed: Yes Is patient currently on oral steroids?: No Has the patient had a UTI in the past month?: No. Does the patient have any artificial joints (last 2 years), metal parts, pacemakers or cardiac/ureteral stents in place?: No Does the patient have diabetes?: Yes Is the patient routinely taking anticoagulants?: Yes. Patient stopped Ibuprofen on 12/02. Can the patient have an IV put in either arm?: Yes Urine Dip Complete?: Yes URINE CULTURE COMPLETE?: Yes Ostomy/Stoma Nurse appointment made/completed: N/A IMPACT/Medical Clearance: Cleared per [facility] - To be seen [facility]: Cleared per [facility] - To be seen All testing on cureform has been scheduled: Yes Consent Signed: Yes. DOS Orders Placed and Signed: Yes. Pre-op HANDP Done by Impact: To be done by IMP[facility]. PATIENT INSTRUCTIONS FOR SURGERY 1.) DO NOT HAVE ANYTHING TO EAT AFTER MIDNIGHT THE DAY BEFORE SURGERY except for certain morning medications as instructed by the doctor. Candy, mints, gum, and smoking are NOT permitted. You may drink clear liquids (Sprite, water, susan tiffany) up to two hours before your arrival time on the day of surgery. 2.) Medications to be taken on the morning of surgery with a few sips of water: per IMPACT 3.) Please bring all your prescribed inhalers (if you have any you normally take) to the hospital. 4.) Arrival time: Call for arrival. 5.) Prep given: No 6.) Lovenox instructions given: No 7.) Patient reminded that surgery time provided day before surgery is tentative based on potential changes with transplants. Recommendations: This patient is optimally prepared for surgery pending [facility], [facility] and LABS. Prosper May APRN.FREIGHT TRAFFIC CONSULTANT Electronically signed XR CHEST 2 VIEWS Observed: 09/20/2017 Status: F Source: [facility] 2:04 PM [facility] REPOSITORY Exam Date/Time: 09/20/2017 14:11 EDT Reason for Exam: Difficulty breathing Report STUDY: XR Chest 2 Views; 09/20/2017 2:11 pm INDICATION: Difficulty breathing. COMPARISON: 01/04/2017 ACCESSION NUMBER(S): [id number] ORDERING CLINICIAN: Ammon Gonzales FINDINGS: PA and lateral views of the chest were obtained. Mild interstitial prominence is seen throughout the lungs bilaterally and may represent edema and/or atypical infection. Focal hazy opacity is seen at the right lung base and may represent edema, atelectasis and/or pneumonia. No pleural effusion or pneumothorax is identified. The cardiac silhouette is within normal limits for size. IMPRESSION: Diffuse interstitial prominence and mild hazy opacity at the right lung base, as described above. Clinical correlation and continued follow-up until clearing is recommended. FINAL REPORT Dictated: 09/20/2017 2:34 pm Rambo Cisneros MD Signed (Electronic Signature): 09/20/2017 2:34 pm Signed by: Rambo Cisneros MD Technologist: AAKASH TROPONIN-I Collected: 09/20/2017 Status: F Source: FAITH 1:55 PM [facility] REPOSITORY TYPE CODE TESTS RESULT OUT OF RANGE REFERENCE UNITS LAB [id number](LO .00-.03 ng/mL INC) Normal .01 Troponin-I Performed By: #### [id number] #### [facility] [address] [place] [address] CODING SUMMARY. Observed: 09/03/2017 Status: F Source: [facility] 4:51 PM [facility] REPOSITORY CODING DATE: 09/03/2017 FINAL [facility] STATUS: Home (Routine DC) PAYOR: Medicaid EAPG DESCRIPTION 0400 LEVEL I CHEMISTRY TESTS ADMIT DX: REASON FOR VISIT DX: E11.65 Type 2 diabetes mellitus with hyperglycemia FINAL DX: PRINCIPAL: E11.65 Type 2 diabetes mellitus with hyperglycemia SECONDARY: PYMT PROC EAPG STAT DESCRIPTION DOCTOR NAME DATE NOTE: The code number assigned matches the documented diagnosis and / or procedure in the patient's chart. However, the narrative phrase printed from the coding software may appear abbreviated, or result in slightly different terminology. Coded By: Alecia Thorne Date Saved: 09/03/2017 04:51 pm HOSP Observed: 08/19/2017 Status: COMPLETED Source: STE[facility] 12:00 AM [facility] REPOSITORY Patient Update (UROLMN) TESS HALL ([id number]) 1980 F Date Time Provider Department 08/19/17 YADIEL WELLS) UROTAMMY During your visit today, we recorded the following information about you: Allergies As of Date: 08/19/2017 Noted Allergy Reaction CLINDAMYCIN 08/17/2017 4 - Hives 9 - Itching TYLENOL (ACETAMINOPHEN) 08/17/2017 4 - Hives 8 - GI Upset Date Reviewed: 01/09/2016 Reviewed by: Janneth Gutierrez LPN - Fully Assessed Primary Visit Diagnosis:Renal mass [N28.89] Order(s):CBC + DIFF [SQCBCDIF] Order #: [id number] FUTURE COMP METABOLIC PANEL [SQCMP] Order #: [id number] FUTURE PROTHROMBIN TIME/PT [SQPT] Order #: [id number] FUTURE ACTIVATED PTT [SQPTT] Order #: [id number] FUTURE TYPE + SCREEN,30 DAY [[id number]] Order #: [id number] FUTURE CONFIRM BLOOD TYPE [SQCONABO] Order #: [id number] FUTURE CT KIDNEY WO/W IVCON [8840317] Order #: [id number] FUTURE iv contrast (will be provided with radiology test)CT kidney wow Inject, intravenously, once for 1 dose.No IV access, insert saline lock prior to the beginning of sedation, infusion, injection of imaging exam. Discontinue saline lock post exam. If Pt. has a central line or IVAD, may access for administration according to line specific nursing protocol. Once exam is complete flush line and de-access according to line specific nursing protocol in the CT contrast administration guidelines link.Disp: 1 EachRfl: 0 NM RENAL FLOW/FXN WO PHARM [[id number]] Order #: [id number] FUTURE CONSULT TO INT MED-IMPACT [1355064] Order #: [id number]: 1 CONSULT TO ANESTHESIOLOGY [9002] Order #: [id number]: 1 SURGICAL REQUEST - ELECTIVE [[id number]] Order #: [id number]: 1 Prescriptions as of 08/19/2017 Sig: NITROFURANTOIN MONOHYDRATE AND * Take 1 capsule by mouth twice* IV CONTRAST (RADIOLOGY PROCED* CT kidney wow Inject, intrave* INSULIN GLARGINE (U-100) 100 * Inject 50 Units subcutaneousl* GLIPIZIDE 10 MG TABLET Take 2 in am before breakfast* Patient not taking: Reported on 08/17/2017 BLOOD SUGAR DIAGNOSTIC STRIPS Test blood sugar(s)3daily. D* LANCETS Use as instructed up to 4 azar* METFORMIN 1,000 MG TABLET Take 1 tablet by mouth twice * BLOOD-GLUCOSE METER KIT As directed ALBUTEROL SULFATE HFA 90 MCG/* Inhale 2 Puffs as instructed. Problem List As Of Date 08/19/2017 Noted Resolved Diabetes mellitus type 2, uncontrolled, without*INVALID FOR* Asthma with COPD with exacerbation (HCC) [J44.1*INVALID FOR*06/28/2015 HTN (hypertension) [I10] INVALID FOR* Anxiety [F41.9] INVALID FOR* Asthma [J45.909] INVALID FOR* Non morbid obesity [E66.9] INVALID FOR* NO SHOW INVALID FOR* Renal mass [N28.89] INVALID FOR* Morbid obesity (HCC) [E66.01] INVALID FOR* Prescriptions ordered this encounter Disp Refills Start End IV CONTRAST (RADIOLOGY PROCEDURE) 1 Ea* 0 08/19/2017 08/20/2017 Class: In Office Sig: CT kidney wow Inject, intravenously, once for 1 dose.No IV access, insert saline lock prior to the beginning of sedation, infusion, injection of imaging exam. Discontinue saline lock post exam. If Pt. has a central line or IVAD, may access for administration according to line specific nursing protocol. Once exam is complete flush line and de-access according to line specific nursing protocol in the CT contrast administration guidelines link. Follow-up and Disposition History Recorded Encounter Status:Closed by YADIEL WELLS PA-C on 08/19/17 HOSP Observed: 08/19/2017 Status: COMPLETED Source: [facility] 12:00 AM [facility] REPOSITORY Patient:Tess Hall MRN: <[id number]> Height:5' 5(1.651 m) Weight:333 lb (151.048 kg) Outpatient Medications as of 12/09/17: exenatide microspheres (BYDUREON SUBCUTANEOUS) ibuprofen (MOTRIN ORAL) insulin glargine (BASAGLAR KWIKPEN U-100 INSULIN) 100 unit/mL (3 mL) inpn cyclobenzaprine (FLEXERIL) 10 mg tablet fluticasone (FLOVENT HFA) 110 mcg/actuation inhaler glipiZIDE (GLUCOTROL) 10 mg tablet blood sugar diagnostic (FREESTYLE LITE STRIPS) test strip Lancets lancets metFORMIN (GLUCOPHAGE) 1,000 mg tablet Blood-Glucose Meter (FREESTYLE LITE METER) monitoring kit albuterol HFA (PROVENTIL HFA, VENTOLIN HFA) 90 mcg/actuation inhaler Admission/Clinic Administered Medications as of 12/09/17: lactated ringers infusion ceFAZolin 3 g in D5W 100 mL (ANCEF) Problem List: Diabetes mellitus type 2, uncontrolled, without complications (HCC) [E11.65] HTN (hypertension) [I10] Anxiety [F41.9] Asthma [J45.909] Non morbid obesity [E66.9] NO SHOW [] Renal mass [N28.89] Morbid obesity (HCC) [E66.01] Obesity, Class III, BMI >= 40 [E66.01] Allergies: Clindamycin Tylenol [Acetaminophen] Date Verified: 12/09/17 Lab Values Lab Value Units Date High Low POTA* 4.4 mmol/L 12/01/2017 5.1 3.7 JUAN FRANCISCO* 36.7 % 12/01/2017 46.0 36.0 Progress Notes ([facility]): Tamera Menendez MD 12/01/2017 3:36 PM Signed HISTORY AND PHYSICAL EXAMINATION (IMPACT) SERVICE DATE: 12/01/2017 SERVICE TIME: 2:51 PM PRIMARY CARE PHYSICIAN: RICH PantojaC CHIEF COMPLAINT/HISTORY OF PRESENT ILLNESS: Ms. Hall is a 37 year old female referred to me for preoperative evaluation. My final recommendations will be communicated back to the requesting physician/surgeon by the way of the shared medical record. Referring Surgeon: Dr. Torres Date of Surgery: 12/09/17 Planned Surgery/Procedure: NEPHRECTOMY PARTIAL ADULT, Left Indication for Planned Surgery / Procedure: L renal mass Refer to Assessment section for details of any comorbidities. Patient is Able to Perform the Following Physical Activity: Climb a flight of stairs or walk up a hill (5.50 METs) Patient denies any chest pain or undue shortness of breath with the above physical activity. Patient's functional class is II-III based on self-reported physical activity. Significant Anesthesia Considerations: None. PAST MEDICAL/SURGICAL/FAMILY/SOCIAL HISTORY PAST MEDICAL HISTORY Diagnosis Date - Depression - DM2 (diabetes mellitus, type 2) (HCC) - HLD (hyperlipidemia) - Hx of acute pyelonephritis - Morbid obesity (HCC) - Reactive airway disease - Renal mass - Smoker PAST SURGICAL HISTORY Procedure Laterality Date - SECTION HX 2006 - TUBAL LIGATION HX 2006 FAMILY HISTORY Problem Relation Age of Onset - Blindness Maternal Grandmother SOCIAL HISTORYSocial History Marital status: Spouse name: Years of education: Number of children: Social History Main Topics Smoking status: Current Every Day Smoker Packs/day: 1.00 Years: 0.00 Types: Cigarettes Smokeless tobacco: Never Used Alcohol use: No Drug use: No MEDICATIONS/ALLERGIES Current Outpatient Prescriptions: exenatide microspheres (BYDUREON SUBCUTANEOUS) Inject subcutaneously once each week. Disp: Rfl: ibuprofen (MOTRIN ORAL) Take 1 tablet by mouth as needed. 800 mg Disp: Rfl: insulin glargine (BASAGLAR KWIKPEN U-100 INSULIN) 100 unit/mL (3 mL) inpn Inject 35-40 Units subcutaneously daily at bedtime. Disp: Rfl: glipiZIDE (GLUCOTROL) 10 mg tablet Take 2 in am before breakfast and 2 before evening meal. Disp: Rfl: blood sugar diagnostic (FREESTYLE LITE STRIPS) test strip Test blood sugar(s)3daily. Dx: diabetes type 2 uncontrolled.. Insulin: No, titrating medication Disp: 100 Strip Rfl: 3 Lancets lancets Use as instructed up to 4 times daily Disp: 120 Each Rfl: 11 metFORMIN (GLUCOPHAGE) 1,000 mg tablet Take 1 tablet by mouth twice daily with meals. Disp: 60 tablet Rfl: 3 Blood-Glucose Meter (FREESTYLE LITE METER) monitoring kit As directed Disp: 1 Each Rfl: 0 albuterol HFA (PROVENTIL HFA, VENTOLIN HFA) 90 mcg/actuation inhaler Inhale 2 Puffs as instructed. Disp: Rfl: cyclobenzaprine (FLEXERIL) 10 mg tablet Take 1 tablet by mouth three times daily as needed for Muscle Spasm. Disp: Rfl: No current facility-administered medications for this visit. ALLERGIES Allergen Reactions - Clindamycin Hives, Itching - Tylenol [Acetaminop* Hives, GI Upset REVIEW OF SYSTEMS General: No weight loss, malaise or fevers. Neuro: No history of TIA's, stroke, BENCH TECHNICIAN tumor, impaired sensorium, hemiplegia, paraplegia or quadriplegia. No neurological symptoms or problems. Respiratory: Asthma - uses albuterol inhaler nearly daily, not on controller meds. Denies BECKER Cardiovascular: No history of HTN requiring medication, no history of angina, CHF, IA, cardiac surgery or stents. Denies rest pain, gangrene or revascularization/amputation for PVD. No history of cardiovascular symptoms or problems. GI: No history of GI symptoms or problems. No history of esophageal varices, recent ascites, or ETOH greater than 2 drinks per day. : renal mass, denies recent UTIs TRANSCRIPTION: LMP - 11/20/17 Endocrine: T2DM - on glargine + oral agents, no known complications. Denies steroid use in the last 3mo. Hematology: No history of bleeding or clotting disorder. No history of hematological symptoms or problems. Oncology: renal mass Psych: Anxiety, Depression PHYSICAL EXAM VITALS: BP 132/86 Pulse 94 Temp (Src) 98.4 (Oral) Ht 5' 5 (1.65m) Wt 333 lb (151.0kg) SpO2 99% LMP 11/20/2017 BMI 55.41 kg/(m2). General: Alert and oriented, Morbidly obese Skin: Normal color, no rash, no lesions. Neck: no palpable masses or LNs Cardiovascular: Normal S1 AND S2, no rubs, murmurs or gallops. No JVD. Pulse regular. Lungs: Normal breath sounds, no wheezes or crackles. Abdomen: Soft, non-tender, no rigidity. Extremities: No deformity, no edema or tenderness, no joint swelling or clubbing. Neurological: Normal cognition and motor skills. ASSESSMENT Ms. Hall is a 37 year old female referred to me for preoperative evaluation. Patient has the following medical comorbidities which might affect the perioperative course: - T2DM: on insulin and oral agents, no known complications per pt, issues with hull sorter hypoglycemia per pt - Asthma: moderate persistent with nearly daily use of albuterol, not on controller meds - L renal mass - Morbid obesity: without diagnosis of JOHNY but high risk for JOHNY - Smoker: 1ppd, counseled to quit Patient's RCRI (Revised Cardiac Risk Index: CAD/CHF/Stroke or TIA/SCr>2/DM on Insulin/High Risk Surgery) score is 1 and is at low risk for major adverse cardiac events in the perioperative period. Diagnostic tests reviewed for today's visit: Labs 12/01/2017 reviewed: Component Latest Ref Rng AND Units 12/01/2017 WBC 3.70 - 11.00 k/uL 7.59 RBC 3.90 - 5.20 m/uL 4.35 Hemoglobin 11.5 - 15.5 g/dL 11.6 Hematocrit 36.0 - 46.0 % 36.7 MCV 80.0 - 100.0 fL 84.4 MCH 26.0 - 34.0 pG 26.7 MCHC 30.5 - 36.0 g/dL 31.6 RDW-CV 11.5 - 15.0 % 13.6 Platelet Count 150 - 400 k/uL 241 MPV 9.0 - 12.7 fL 9.9 Neut% % 70.8 Abs Neut (ANC) 1.45 - 7.50 k/uL 5.36 Lymph% % 21.5 Abs Lymph 1.00 - 4.00 k/uL 1.63 Martin% % 5.8 Abs Martin <0.87 k/uL 0.44 Eosin% % 1.6 Abs Eosin <0.46 k/uL 0.12 Baso% % 0.3 Abs Baso <0.11 k/uL <0.03 Nucleated Reds 0 /100 WBC 0.0 Absolute nRBC <0.01 k/uL <0.01 Diff Type Auto Diff Protein, Total 6.3 - 8.0 g/dL 5.5 (L) Albumin 3.9 - 4.9 g/dL 3.5 (L) Calcium 8.5 - 10.2 mg/dL 9.0 Bilirubin, Total 0.2 - 1.3 mg/dL 0.2 Alkaline Phosphatase 32 - 117 U/L 99 AST 13 - 35 U/L 12 (L) Glucose 74 - 99 mg/dL 216 (H) BUN 7 - 21 mg/dL 18 Creatinine 0.58 - 0.96 mg/dL 0.62 Sodium 136 - 144 mmol/L 137 Potassium 3.7 - 5.1 mmol/L 4.4 Chloride 97 - 105 mmol/L 102 CO2 22 - 30 mmol/L 26 Anion Gap 9 - 18 mmol/L 9 ALT 7 - 38 U/L 12 eGFR- >60 eGFR-All Other Races . >60 PT Sec 9.7 - 13.0 sec 9.3 (L) PT INR 0.9 - 1.3 <0.9 (L) APTT 23.0 - 32.4 sec 24.0 PLAN/RECOMMENDATIONS CARDIAC: Patient is at optimal cardiac condition for scheduled surgery / procedure. PULMONARY: Patient is at optimal Pulmonary status for scheduled surgery / procedure. Patient is at increased risk for postoperative pulmonary complications. Advised patient to stop smoking. Suggest the following in the post-operative period: Continue bronchodilator medications, Aggressive bronchopulmonary hygiene and Early ambulation - Start flovent given daily asthma symptoms - Monitor pulse-ox postop and use caution with opiates given morbid obesity and high risk for JOHNY. ENDOCRINE: DIABETES: - Initiate [facility] Guidelines for perioperative diabetes management. Check finger stick glucose on the morning of surgery. - Patient has been instructed on Preoperative DM medication management. VASCULAR/ANTICOAGULATION: VTE prophylaxis as deemed appropriate by the surgical service. Pt at acceptable risk to proceed with surgery. Patient Instructions: As per patient instructions section. I have discussed the above recommendations with the patient in detail, in justin and lay terms, and provided a written summary of instructions as needed. We have discussed that no surgery is without risk, but that the goal of preoperative assessment is to optimize that risk, and that was clearly understood by the patient. I have given ample opportunity for the patient to ask questions, and answered all questions to their stated satisfaction. SIGNATURE: Tamera Menendez MD PATIENT NAME: Tess Hall DATE: December 01, 2017 TIME: 2:51 PM Citlali Wolfe 12/01/2017 3:36 PM Signed Tess Hall is a 37 year old female here today for visit in [facility] Referring Surgeon: Dr. Torres Date of Surgery: 12/09/2017 Planned Surgery/Procedure: NEPHRECTOMY PARTIAL ADULT Allergies have been reviewed and verified. They include the following: Clindamycin; Tylenol [Acetaminophen] Social History Substance Use Topics - Smoking status: Current Every Day Smoker Packs/day: 1.00 Types: Cigarettes - Smokeless tobacco: Not on file - Alcohol use Not on file Medications reviewed and updated: Yes Citlali Menendez MD 12/01/2017 3:31 PM Addendum [facility] Patient Instructions for Surgery FOOD INSTRUCTIONS: NO solid food or liquids after midnight the night before surgery. MEDICATION INSTRUCTIONS: Prior to Surgery: Do not take the following medications for 7 days prior to surgery: - any NSAID's (e.g. Motrin, Aleve, Arthrotec, Naproxen,etc) - any herbal preparations - Aspirin or aspirin containing products Do not take any Vitamin E / multivitamins for 10-14 days before surgery You are allowed to take Tylenol if needed until the day of surgery. MEDICATION INSTRUCTIONS: Day/Morning of Surgery: NO PILLS on the morning of surgery. - Please bring your albuterol inhaler with you on the day of surgery. Use it if needed. DIABETES MANAGEMENT INSTRUCTIONS: Eat a usual diet until the day prior to surgery unless indicated by your surgeon/physician. If your blood sugar is below 70 mg/dl at any time, treat with ? cup of apple juice or susan tiffany, or 4 glucose tabs or 1 tube of oral glucose gel. - You can take your Bydureon on Thursday this week like normal MEDICATION INSTRUCTIONS: Prior to Surgery: ? Take all of your diabetic pills (metformin, glipizide) ? The night before surgery, take 26 units of your glargine insulin MEDICATION INSTRUCTIONS: Day/Morning of Surgery: ? Do not take your Diabetic pills. If you have any questions or concerns regarding today's visit please do not hesitate to contact the [facility] at [phone] or [phone], ext [phone]. Signature: Tamera Menendez MD Date: December 01, 2017 Previous Version Progress Notes ([facility]): Jessie Abebe, RN, RN 12/01/2017 4:59 PM Signed ANESTHESIA PRE-OPERATIVE ASSESSMENT ([facility]ACE) SERVICE DATE: 12/01/2017 SERVICE TIME: 4:55pm ASSESSMENT AND PLAN: Tess Hall is a 37 year old female scheduled for Left flank exploratoin, Left partial nephrectomy (possible radical nephrectomy) per Informed Consent in MAIN on 12/09/2017. PMH: - T2DM: on insulin and oral agents, FBS 70-90 - Asthma: moderate persistent with nearly daily use of albuterol - L renal mass- for the above surgery - BMI 55.4 - Smoker: 1ppd x 26 years ? [employer]: Not Done FC: 2 METS: Climb a flight of stairs or walk up a hill (5.50 METs) Patient denies any chest pain or undue shortness of breath with the above physical activity. Patient WILL accept blood products. BLOOD WORK/PRODUCTS ORDERED: Type and Screen , Con ABO HISTORY OF CHRONIC PAIN: No PAIN MANAGEMENT OPTIONS: Final pain management plan will be discussed on the day of surgery. ANESTHETIC OPTIONS: Final anesthesia management options will be discussed on day of surgery. PRE-OP PLAN ORDERED: Diabetes orders Patient Instructed: ? No solid food or non-clear liquids after midnight. Clear liquids allowed until two hours before scheduled arrival. ? Patient instructed to take the following medications with a sip of water: inhaler Vital Signs: BP 132/86 Pulse 94 Ht 165.1 cm (5' 5) Wt (!) 151.1 kg (333 lb 1.8 oz) LMP 11/20/2017 SpO2 99% BMI 55.43 kg/m? BMI 55.43 kg/(m2) Vital signs completed by: [facility] Weight acquired: per HANDP. Height acquired: per HANDP Airway Exam: MOUTH OPENING/TMJ: Full jaw ROM MICROGNATHIA/OVERBITE: No MALLAMPATI SCORE is CLASS II UPPER LIP BITE TEST: Class I - Lower incisors can bite the upper lip above the rodrigo line DENTITION: missing - top and bottom THYROMENTAL DIST: WNL SHORT NECK: Yes - short/thick secondary to obesity. NECK CIRCUMFERENCE >40 cm: Appears < than 40 CM NECK FLEX: Full ROM NECK EXTENSION: Full ROM AIRWAY HISTORY: No abnormal airway history ARKS AIRWAY DETAIL: N/A DATA: EKG READING: EKG not indicated OTHER TESTS: N/A Lab Value Units Date High Low HB 11.6 g/dL 12/01/2017 15.5 11.5 HCT 36.7 % 12/01/2017 46.0 36.0 WBC 7.59 k/uL 12/01/2017 11.00 3.70 PLT 241 k/uL 12/01/2017 400 150 NA 137 mmol/L 12/01/2017 144 136 K 4.4 mmol/L 12/01/2017 5.1 3.7 GLUC 216 mg/dL 12/01/2017 99 74 BUN 18 mg/dL 12/01/2017 21 7 CREAT 0.62 mg/dL 12/01/2017 0.96 0.58 PTSEC 9.3 sec 12/01/2017 13.0 9.7 INR <0.9 no uni* 12/01/2017 1.3 0.9 APTT 24.0 sec 12/01/2017 32.4 23.0 ALT 12 U/L 12/01/2017 38 7 AST 12 U/L 12/01/2017 35 13 TBILI 0.2 mg/dL 12/01/2017 1.3 0.2 TSH No results within date range. Lab Value Units Date High Low HCGQT No results within date range. UHCG No results within date range. HCG, BODY* No results within date range. ABORHD No results within date range. ABSCREEN No results within date range. HBA1C: Hemoglobin A1C Date Value 12/26/2015 12.7 % 01/29/2015 11.5 ) Patient accompanied by boyfriend Case Discussed with Dr. 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 PATIENT GENDER DATA: Female. status: : No status: N/A PATIENT RELEVANT IMPLANT DATA REVIEWED: Not Applicable RADIOLOGY DEPARTMENT: General X-ray: Exam(s) Completed: Chest X-Ray PERIPHERAL IV DATA: Not applicable SIGNED BY: RT Ivette August 17, 2017 12:03 PM XR CHEST 2V FRONTAL/LAT Observed: 08/17/2017 Status: F Source: STEGER 12:03 [facility] REPOSITORY * * *Final Report* * * DATE OF EXAM: Aug 17 2017 12:03PM AOX [id number] - XR CHEST 2V FRONTAL/LAT / PROCEDURE REASON: multiple diagnoses * * * * Physician Interpretation * * * * EXAMINATION: CHEST RADIOGRAPH (2 VIEW FRONTAL and LATERAL) Clinical History: Other specified disorders of kidney and ureter Morbid (severe) obesity due to excess calories Encounter for screening for other disorder MQ: XC2_5 Comparison: None RESULT: Lines, tubes, and devices: None. Lungs and pleura: Lungs are hypoinflated with no consolidation or mass lesion. Prominence of the lung markings in the perihilar and basilar regions is likely secondary to crowded vessels, given the low lung volume. This could limit the evaluation for subtle interstitial or bronchial abnormalities, especially in the medial aspect of the bases. No pleural effusion or pneumothorax. Cardiomediastinal silhouette: Heart within normal. Thoracic aorta is minimally tortuous. Other: Osteopenia and slight scoliotic curvature are seen in the spine. 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 REPOSITORY TYPE CODE TESTS RESULT OUT OF REFERENCE UNITS RANGE LAB WBC 3.70-11.00 k/uL WBC 7.29 LAB RBC 3.90-5.20 m/uL RBC 5.00 LAB HGB 11.5-15.5 g/dL Hemoglobin 13.4 LAB HCT 36.0-46.0 % Hematocrit 42.0 LAB MCV 80.0-100.0 fL MCV 84.0 LAB MCH 26.0-34.0 pG MCH 26.8 LAB MCHC 30.5-36.0 g/dL MCHC 31.9 LAB RDWCV 11.5-15.0 % RDW-CV 13.8 LAB PLTCT 150-400 k/uL Platelet Count 249 LAB MPV 9.0-12.7 fL MPV 10.9 LAB ABSNUC <0.01 k/uL Absolute nRBC <0.01 Performed By: #### CBC, CMP #### [facility] [address] [place], [place] [address] COMP METABOLIC PANEL Collected: 08/17/2017 Status: F Source: STEGER 11:42 AM [facility] REPOSITORY TYPE CODE TESTS RESULT OUT OF REFERENCE UNITS RANGE LAB TP 6.3-8.0 g/dL Protein, Total 6.8 LAB ALB 3.9-4.9 g/dL Low Albumin 3.8 LAB CA 8.5-10.2 mg/dL Calcium, Total 8.9 LAB TBIL 0.2-1.3 mg/dL Bilirubin, Total 0.4 LAB ALKP 32-117 U/L Alkaline Phosphatase 108 LAB AST 13-35 U/L AST 13 LAB GLU 74-99 mg/dL Glucose High 276 Result Comment: The [place] [employer] (ADA) provides guidance for cutoff values for fasting glucose and random glucose. The ADA defines fasting as no caloric intake for at least 8 hours. Fas ting plasma glucose results between 100 to 125 mg/dL indicate increased risk for diabetes (prediabetes). Fasting plasma glucose results greater than or equal to 126 mg/dL meet the criteria for diagnosis of diabetes. In the absence of unequivocal hyperglycemia, results should be confirmed by repeat testing. In a patient with classic symptoms of hyperglycemia or hyperglycemic crisis, random plasma glucose results greater than or equal to 200 mg/dL meet the criteria for diagnosis of diabetes. Reference: Standards of Medical Care in Diabetes 2016, [place] [employer]. Diabetes Care. 2016.39(Suppl 1). LAB BUN 7-21 mg/dL BUN 14 LAB CRET 0.58-0.96 mg/dL Creatinine 0.62 LAB NA 136-144 mmol/L Sodium 137 LAB K 3.7-5.1 mmol/L Potassium 4.7 LAB CL 97-105 mmol/L Chloride 98 LAB CO2 22-30 mmol/L CO2 26 LAB AGAP 9-18 mmol/L Anion Gap 13 LAB ALT 7-38 U/L ALT 14 LAB GFRAA eGFR- Amer. >60 LAB GFRNAA . eGFR-All Other Races >60 Result Comment: eGFR (Estimated GFR) Units of measure: mL/min/1.73 meters squared eGFR is derived from the reexpressed MDRD Study equation using the following parameters: serum creatinine, age, gender and race. The creatinine assay has been calibrated to be traceable to IDMS. An eGFR <60 mL/min/1.73m2 for >3 months is consistent with chronic kidney disease. Refer to KDOQI guidelines for clinical interpretation. In patients with unstable renal function, e.g. those with acute kidney injury, the eGFR may not accurately reflect actual GFR. Performed By: #### CBC, CMP #### [facility] [address] [place], [place] [address] Observed: 08/17/2017 Status: F Source: STEGER URINE CULTURE 11:04 AM [facility] REPOSITORY Sp. Request/Comment: - Specimen received in preservative Culture Result - >=100,000 CFU/ml Escherichia coli --> ABNORMAL ALERT ORGANISM: Escherichia coli METHOD: Minimum inhibitory concentration(Vitek) Antibiotic Interp PATTI Status Ampicillin RESISTANT >=32 F Gentamicin SUSCEPTIBLE <=1 F Trimeth sulfameth RESISTANT >=320 F Cefazolin RESISTANT >=64 F Ciprofloxacin SUSCEPTIBLE <=0.25 F Nitrofurantoin SUSCEPTIBLE <=16 F Cefepime SUSCEPTIBLE <=1 F Ampicillin Sulbact RESISTANT >=32 F Ceftriaxone RESISTANT 16 F Meropenem SUSCEPTIBLE <=0.25 F Ertapenem SUSCEPTIBLE <=0.5 F Performed By: #### URCUL #### [facility] [address] [place] [address] CYTOLOGY Observed: 08/17/2017 Status: F Source: STEGER 10:41 AM [facility] REPOSITORY Specimen originated from [facility] Specimen #: [id number] Submitting Physician: HEATHER TORRES M.D. (Q10) SPECIMEN SUBMITTED A: URINE, VOIDED FINAL DIAGNOSIS A. URINE, VOIDED Negative for malignant cells. Miguel Garcia M.D. 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 (Q10) Location: Q71 Diagnostic interpretation performed at [facility], [address] [place] [address]. URINALYSIS Collected: 08/17/2017 Status: F Source: STEGER 9:21 AM [facility] REPOSITORY TYPE CODE TESTS RESULT OUT OF RANGE REFERENCE UNITS LAB UCOL Yellow Color Yellow LAB [facility] Clear Clarity Abnormal Cloudy Alert LAB UGLUC Negative mg/dL Glucose, Abnormal Urine >=1000 Alert LAB UBIL Negative Bilirubin, Urine Negative LAB UKET Negative Ketones, Urine Negative LAB USPG 1.005-1.030 Specific [place], Ur 1.021 LAB UHGB Negative Hemoglobin/Blood, Negative Ur LAB UPH 4.5-8.0 pH 5.0 LAB UPROT Negative mg/dL Protein, Urine Negative LAB UUROB Normal Urobilinogen Normal LAB UNITR Negative Nitrites Abnormal Positive Alert LAB ULKEST Negative Leukest Abnormal Trace Alert LAB UCOM Comments SEE COMMENT Result Comment: Microscopic Examination Performed LAB UWBC 0-5 /HPF Abnormal WBC Alert 6-10 LAB URBC 0-3 /HPF RBC 0-3 LAB UEPI /HPF Epithelial Cells SEE COMMENT Result Comment: Few Squamous Epithelial Cells LAB UMCOM Urine SEE Patti Comment COMMENT Result Comment: N/A Performed By: #### UA #### [facility] [address] [place], [place] [address] PROGRESS Observed: 08/17/2017 Status: COMPLETED Source: STEGER 9:00 AM [facility] REPOSITORY HNO ID: [id number] Author: Heather Torres Service: (none) Author Type: Physician Type: Progress Notes Filed: 08/17/2017 10:41 AM Note Text: New patient or consult: Date: 36 year old, female Referred by: Mark Bassett MD CC: HPI: 36/M with Hx morbid obesity, DM2, smoker who presents for evaluation for incidental left renal mass Hx incidental left renal mass, first identified in 2014 Hx complicated UTI / right pyelonephritis 06/30/17 (UA today with leuks) Repeat imaging 06/2017 showed slightly enlarged left mass Hx of prior - c/b infection requiring wound opening and packing - hesitant for surgery Michael Argueta, offered radical nephrectomy - here for second opinion DM2 on insulin and metformin Active smoker Body mass index is 51.09 kg/m?. Hilar per CT, adjacent to rneal arteries, solid enhancing From [place] No recent labs or CXR Renal Cell Carcinoma Risk Factors Hx of smoking: Yes 1ppd * yr = 20py Obese?: Yes Hx of HTN: No Horseshoe kidney: No Hx of CKD: No FMHx of RCC: No Hx of VHL: No Hx of Qqox-Olsh-Oudd: No Hx of adult PKD: No B Symptoms Weight loss: No Fevers/chills: No Night sweats: No CT 07/18/2017 2 left renal arteries Disease Specificity: Acuity: Chronic Anatomic Site: Kidney, Laterality: Left Underlying Condition/Causal Agent: Primary Associated Conditions/Manifestations: N/A Voiding history: Current meds for voiding: None OVS:None Intermittency: none IVS: intermittent Hematuria: none Incontinence: none GUROS: Hx stone disease: none Hx UTI: Yes Hx STD: none BM's: Regular Sexual function: n/a No past medical history on file. PAST SURGICAL HISTORY Procedure Laterality Date - SECTION HX 2006 - TUBAL LIGATION HX 2006 Meds Current Outpatient Prescriptions: insulin glargine (BASAGLAR KWIKPEN U-100 INSULIN) 100 unit/mL (3 mL) inpn Inject 50 Units subcutaneously daily at bedtime. blood sugar diagnostic (FREESTYLE LITE STRIPS) test strip Test blood sugar(s)3daily. Dx: diabetes type 2 uncontrolled.. Insulin: No, titrating medication Lancets lancets Use as instructed up to 4 times daily metFORMIN (GLUCOPHAGE) 1,000 mg tablet Take 1 tablet by mouth twice daily with meals. Blood-Glucose Meter (FREESTYLE LITE METER) monitoring kit As directed albuterol HFA (PROVENTIL HFA, VENTOLIN HFA) 90 mcg/actuation inhaler Inhale 2 Puffs as instructed. glipiZIDE (GLUCOTROL) 10 mg tablet Take 2 in am before breakfast and 2 before evening meal. (Patient not taking: Reported on 08/17/2017 ) No current facility-administered medications for this visit. Allergies Tylenol - itching hives Clindamycin - itching, hives Family Hx: No FMHx Social: [place] Tobacco: Daily ETOH:Yes Occupation: Unemployed Residence:[place], [place] Review of Systems: REVIEW OF SYSTEMS PAIN ASSESSMENT: No chronic pain, +right flank acute pain GENERAL: Negative for weight loss or fevers HEENT: Negative for changes in hearing or vision NECK: Negative for neck pain or swelling RESPIRATORY: Negative for cough, wheezing, or shortness of breath CARDIOVASCULAR: Negative for chest pain GI: No nausea, vomiting, or diarrhea : See HPI MUSCULOSKELETAL: Negative for joint pain or swelling SKIN: Negative for lesions or rashes HEMATOLOGY: Negative for bleeding or clotting problems NEURO: Negative for strokes or seizures PHYSICAL EXAM: There were no vitals taken for this visit. General: morbidly obese woman in NAD HEENT: Normocephalic, atraumatic CV:: warm, well-perfused. RRR Resp: breathing comfortably on RA GI: Soft, nontender, nondistended. No rebound or guarding. : Mild right CVA tenderness Extremities: no cyanosis or clubbing, +edema Neuro: Alert and oriented Psych: Normal affect Pelvic: Deferred UA: 6-10 whites Assessment 36/M with Hx morbid obesity, DM2, smoker who presents for evaluation for incidental left renal mass Hx incidental left renal mass, first identified in 2014 Hx complicated UTI / right pyelonephritis 06/30/17 (UA today with leuks) Repeat imaging 06/2017 showed slightly enlarged left mass Hx of prior - c/b infection requiring wound opening and packing - hesitant for surgery Michael Argueta, offered radical nephrectomy - here for second opinion DM2 on insulin and metformin Active smoker Body mass index is 51.09 kg/m?. Hilar per CT, adjacent to rneal arteries, solid enhancing From [place] No recent labs or CXR Plan Urine culture Cytology Check cmp, cxr and cbc today Rev films, CT without and with, 07/19/17, I revoiewed, shows 3.7 cm L rneal mass, solid, enhancing, posterior, near hilum but posterior and mostly below he hilum, behind CS, appears amenabel to PN but will need L OPN Ideally would lose some weight prior to surgery Will need better CT, dedicated renal CT, prior so surgery Also would need RFS, I/P prior to surgeyr Will need genetic counseling after surgery, I discussed this too The procedure, L Renal exploratoin, L OPN, poss L RN, and risks were reviewed and discussed in detail. We discussed the risks of the anaestheic including but not limited to IA, CVA, DVT, and PE, and the risks of the procedure including but not limited to possible need for blood transfusion, infection, wound healing problems, stricture formation, possible need for reoperation, and possible risks of cancer recurrence. Given BMi incresaed risk of periop event discussed, including but not limited to wound infeciton, PNA or PE. In summary, we discussed the procedure, risks, potential benefits, and reasonable alternatives, and we also discussed the fact that if this patient elected surgical therapy, that we would operate as a team with involvement of myself as primary surgeon, with possible assistance of our residents, or potentially a colleague if needed, but that I would be there for critical portions of the procedure. In short, we discussed P/R/B/A/P, in detail, all questions answered We also discussed the possible need for additional or adjuvant treatment depending on pathologic findings. All questions were answered and patient wishes to proceed. Heather Torres MD CNOV Observed: 08/17/2017 Status: COMPLETED Source: STEGER 9:00 AM [facility] REPOSITORY Office Visit (UROLMN) TESS HALL ([id number]) 1980 F Date Time Provider Department 08/17/17 9:00 AM HEATHER TORRES During your visit today, we recorded the following information about you: Weight Height 143.6 kg 1.676 m Heather Torres MD 08/17/2017 10:41 AM Signed New patient or consult: Date: 36 year old, female Referred by: Mark Bassett MD CC: HPI: 36/M with Hx morbid obesity, DM2, smoker who presents for evaluation for incidental left renal mass Hx incidental left renal mass, first identified in 2014 Hx complicated UTI / right pyelonephritis 06/30/17 (UA today with leuks) Repeat imaging 06/2017 showed slightly enlarged left mass Hx of prior - c/b infection requiring wound opening and packing - hesitant for surgery Michael Argueta, offered radical nephrectomy - here for second opinion DM2 on insulin and metformin Active smoker Body mass index is 51.09 kg/m?. Hilar per CT, adjacent to rneal arteries, solid enhancing From [place] No recent labs or CXR Renal Cell Carcinoma Risk Factors Hx of smoking: Yes 1ppd * yr = 20py Obese?: Yes Hx of HTN: No Horseshoe kidney: No Hx of CKD: No FMHx of RCC: No Hx of VHL: No Hx of Mheh-Sgwj-Tuwd: No Hx of adult PKD: No B Symptoms Weight loss: No Fevers/chills: No Night sweats: No CT 07/18/2017 2 left renal arteries Disease Specificity: Acuity: Chronic Anatomic Site: Kidney, Laterality: Left Underlying Condition/Causal Agent: Primary Associated Conditions/Manifestations: N/A Voiding history: Current meds for voiding: None OVS:None Intermittency: none IVS: intermittent Hematuria: none Incontinence: none GUROS: Hx stone disease: none Hx UTI: Yes Hx STD: none BM's: Regular Sexual function: n/a No past medical history on file. PAST SURGICAL HISTORY Procedure Laterality Date - SECTION HX 2006 - TUBAL LIGATION HX 2006 Meds Current Outpatient Prescriptions: insulin glargine (BASAGLAR KWIKPEN U-100 INSULIN) 100 unit/mL (3 mL) inpn Inject 50 Units subcutaneously daily at bedtime. blood sugar diagnostic (FREESTYLE LITE STRIPS) test strip Test blood sugar(s)3daily. Dx: diabetes type 2 uncontrolled.. Insulin: No, titrating medication Lancets lancets Use as instructed up to 4 times daily metFORMIN (GLUCOPHAGE) 1,000 mg tablet Take 1 tablet by mouth twice daily with meals. Blood-Glucose Meter (FREESTYLE LITE METER) monitoring kit As directed albuterol HFA (PROVENTIL HFA, VENTOLIN HFA) 90 mcg/actuation inhaler Inhale 2 Puffs as instructed. glipiZIDE (GLUCOTROL) 10 mg tablet Take 2 in am before breakfast and 2 before evening meal. (Patient not taking: Reported on 08/17/2017 ) No current facility-administered medications for this visit. Allergies Tylenol - itching hives Clindamycin - itching, hives Family Hx: No FMHx Social: [place] Tobacco: Daily ETOH:Yes Occupation: Unemployed Residence:[place], [place] Review of Systems: REVIEW OF SYSTEMS PAIN ASSESSMENT: No chronic pain, +right flank acute pain GENERAL: Negative for weight loss or fevers HEENT: Negative for changes in hearing or vision NECK: Negative for neck pain or swelling RESPIRATORY: Negative for cough, wheezing, or shortness of breath CARDIOVASCULAR: Negative for chest pain GI: No nausea, vomiting, or diarrhea : See HPI MUSCULOSKELETAL: Negative for joint pain or swelling SKIN: Negative for lesions or rashes HEMATOLOGY: Negative for bleeding or clotting problems NEURO: Negative for strokes or seizures PHYSICAL EXAM: There were no vitals taken for this visit. General: morbidly obese woman in NAD HEENT: Normocephalic, atraumatic CV:: warm, well-perfused. RRR Resp: breathing comfortably on RA GI: Soft, nontender, nondistended. No rebound or guarding. : Mild right CVA tenderness Extremities: no cyanosis or clubbing, +edema Neuro: Alert and oriented Psych: Normal affect Pelvic: Deferred UA: 6-10 whites Assessment 36/M with Hx morbid obesity, DM2, smoker who presents for evaluation for incidental left renal mass Hx incidental left renal mass, first identified in 2014 Hx complicated UTI / right pyelonephritis 06/30/17 (UA today with leuks) Repeat imaging 06/2017 showed slightly enlarged left mass Hx of prior - c/b infection requiring wound opening and packing - hesitant for surgery Saw [facility]all, offered radical nephrectomy - here for second opinion DM2 on insulin and metformin Active smoker Body mass index is 51.09 kg/m?. Hilar per CT, adjacent to rneal arteries, solid enhancing From [place] No recent labs or CXR Plan Urine culture Cytology Check cmp, cxr and cbc today Rev films, CT without and with, 07/19/17, I revoiewed, shows 3.7 cm L rneal mass, solid, enhancing, posterior, near hilum but posterior and mostly below he hilum, behind CS, appears amenabel to PN but will need L OPN Ideally would lose some weight prior to surgery Will need better CT, dedicated renal CT, prior so surgery Also would need RFS, I/P prior to surgeyr Will need genetic counseling after surgery, I discussed this too The procedure, L Renal exploratoin, L OPN, poss L RN, and risks were reviewed and discussed in detail. We discussed the risks of the anaestheic including but not limited to IA, CVA, DVT, and PE, and the risks of the procedure including but not limited to possible need for blood transfusion, infection, wound healing problems, stricture formation, possible need for reoperation, and possible risks of cancer recurrence. Given BMi incresaed risk of periop event discussed, including but not limited to wound infeciton, PNA or PE. In summary, we discussed the procedure, risks, potential benefits, and reasonable alternatives, and we also discussed the fact that if this patient elected surgical therapy, that we would operate as a team with involvement of myself as primary surgeon, with possible assistance of our residents, or potentially a colleague if needed, but that I would be there for critical portions of the procedure. In short, we discussed P/R/B/A/P, in detail, all questions answered We also discussed the possible need for additional or adjuvant treatment depending on pathologic findings. All questions were answered and patient wishes to proceed. MD Joann Graf [facility] 08/26/2017 3:53 PM Addendum New patient or consult: Date: 36 year old, female Referred by: Mark Bassett MD CC: HPI: 36/M with Hx morbid obesity, DM2, smoker who presents for evaluation for incidental left renal mass Hx incidental left renal mass, first identified in 2014 Hx complicated UTI / right pyelonephritis 06/30/17 (UA today with leuks) Repeat imaging 06/2017 showed slightly enlarged left mass Hx of prior - c/b infection requiring wound opening and packing - hesitant for surgery Michael Argueta, offered radical nephrectomy - here for second opinion DM2 on insulin and metformin Active smoker Body mass index is 51.09 kg/m?. Hilar per CT, adjacent to rneal arteries, solid enhancing From [place] No recent labs or CXR Renal Cell Carcinoma Risk Factors Hx of smoking: Yes 1ppd * yr = 20py Obese?: Yes Hx of HTN: No Horseshoe kidney: No Hx of CKD: No FMHx of RCC: No Hx of VHL: No Hx of Efyt-Pyce-Gudd: No Hx of adult PKD: No B Symptoms Weight loss: No Fevers/chills: No Night sweats: No CT 07/18/2017 2 left renal arteries Disease Specificity: Acuity: Chronic Anatomic Site: Kidney, Laterality: Left Underlying Condition/Causal Agent: Primary Associated Conditions/Manifestations: N/A Voiding history: Current meds for voiding: None OVS:None Intermittency: none IVS: intermittent Hematuria: none Incontinence: none GUROS: Hx stone disease: none Hx UTI: Yes Hx STD: none BM's: Regular Sexual function: n/a No past medical history on file. PAST SURGICAL HISTORY Procedure Laterality Date - SECTION HX 2006 - TUBAL LIGATION HX 2006 Meds Current Outpatient Prescriptions: insulin glargine (BASAGLAR KWIKPEN U-100 INSULIN) 100 unit/mL (3 mL) inpn Inject 50 Units subcutaneously daily at bedtime. blood sugar diagnostic (FREESTYLE LITE STRIPS) test strip Test blood sugar(s)3daily. Dx: diabetes type 2 uncontrolled.. Insulin: No, titrating medication Lancets lancets Use as instructed up to 4 times daily metFORMIN (GLUCOPHAGE) 1,000 mg tablet Take 1 tablet by mouth twice daily with meals. Blood-Glucose Meter (FREESTYLE LITE METER) monitoring kit As directed albuterol HFA (PROVENTIL HFA, VENTOLIN HFA) 90 mcg/actuation inhaler Inhale 2 Puffs as instructed. glipiZIDE (GLUCOTROL) 10 mg tablet Take 2 in am before breakfast and 2 before evening meal. (Patient not taking: Reported on 08/17/2017 ) No current facility-administered medications for this visit. Allergies Tylenol - itching hives Clindamycin - itching, hives Family Hx: No FMHx Social: [place] Tobacco: Daily ETOH:Yes Occupation: Unemployed Residence:[place], [place] Review of Systems: REVIEW OF SYSTEMS PAIN ASSESSMENT: No chronic pain, +right flank acute pain GENERAL: Negative for weight loss or fevers HEENT: Negative for changes in hearing or vision NECK: Negative for neck pain or swelling RESPIRATORY: Negative for cough, wheezing, or shortness of breath CARDIOVASCULAR: Negative for chest pain GI: No nausea, vomiting, or diarrhea : See HPI MUSCULOSKELETAL: Negative for joint pain or swelling SKIN: Negative for lesions or rashes HEMATOLOGY: Negative for bleeding or clotting problems NEURO: Negative for strokes or seizures PHYSICAL EXAM: There were no vitals taken for this visit. General: morbidly obese woman in NAD HEENT: Normocephalic, atraumatic CV:: warm, well-perfused. RRR Resp: breathing comfortably on RA GI: Soft, nontender, nondistended. No rebound or guarding. : Mild right CVA tenderness Extremities: no cyanosis or clubbing, +edema Neuro: Alert and oriented Psych: Normal affect Pelvic: Deferred UA: 6-10 whites Assessment 36/M with Hx morbid obesity, DM2, smoker who presents for evaluation for incidental left renal mass Hx incidental left renal mass, first identified in 2014 Hx complicated UTI / right pyelonephritis 06/30/17 (UA today with leuks) Repeat imaging 06/2017 showed slightly enlarged left mass Hx of prior - c/b infection requiring wound opening and packing - hesitant for surgery Saw [facility], offered radical nephrectomy - here for second opinion DM2 on insulin and metformin Active smoker Body mass index is 51.09 kg/m?. Hilar per CT, adjacent to rneal arteries, solid enhancing From [place] No recent labs or CXR Plan Urine culture Cytology Check cmp, cxr and cbc today Rev films, CT without and with, 07/19/17, I revoiewed, shows 3.7 cm L rneal mass, solid, enhancing, posterior, near hilum but posterior and mostly below he hilum, behind CS, appears amenabel to PN but will need L OPN Ideally would lose some weight prior to surgery Will need better CT, dedicated renal CT, prior so surgery Also would need RFS, I/P prior to surgeyr Will need genetic counseling after surgery, I discussed this too The procedure, L Renal exploratoin, L OPN, poss L RN, and risks were reviewed and discussed in detail. We discussed the risks of the anaestheic including but not limited to IA, CVA, DVT, and PE, and the risks of the procedure including but not limited to possible need for blood transfusion, infection, wound healing problems, stricture formation, possible need for reoperation, and possible risks of cancer recurrence. Given BMi incresaed risk of periop event discussed, including but not limited to wound infeciton, PNA or PE. In summary, we discussed the procedure, risks, potential benefits, and reasonable alternatives, and we also discussed the fact that if this patient elected surgical therapy, that we would operate as a team with involvement of myself as primary surgeon, with possible assistance of our residents, or potentially a colleague if needed, but that I would be there for critical portions of the procedure. In short, we discussed P/R/B/A/P, in detail, all questions answered We also discussed the possible need for additional or adjuvant treatment depending on pathologic findings. All questions were answered and patient wishes to proceed. Heather Torres MD My impression and plan from the visit are as follows: Referring Provider: MARK BASSETT [[id number]] Allergies As of Date: 08/17/2017 Noted Allergy Reaction CLINDAMYCIN 08/17/2017 4 - Hives 9 - Itching TYLENOL (ACETAMINOPHEN) 08/17/2017 4 - Hives 8 - GI Upset Date Reviewed: 01/09/2016 Reviewed by: Janneth Gutierrez BOILERHOUSE MECHANIC - Fully Assessed Primary Visit Diagnosis:Screening for genitourinary condition [Z13.89] Other Visit Diagnoses:Renal mass [N28.89] Morbid obesity (HCC) [E66.01] Order(s):UA CHEMSTRIP ONLY [SQUA] Order #: [id number] FUTURE UA CHEMSTRIP ONLY [SQUA] Order #: [id number]. #:[id number] URINE CULTURE [SQURCUL] Order #: [id number]. #:[id number] URINE CYTOLOGY VOIDED [[id number]] Order #: [id number]. #:[id number] XR CHEST 2V FRONTAL/LAT [[id number]] Order #: [id number] FUTURE COMP METABOLIC PANEL [SQCMP] Order #: [id number] FUTURE CBC [SQCBC] Order #: [id number] FUTURE Prescriptions as of 08/17/2017 Sig: INSULIN GLARGINE (U-100) 100 * Inject 50 Units subcutaneousl* BLOOD SUGAR DIAGNOSTIC STRIPS Test blood sugar(s)3daily. D* LANCETS Use as instructed up to 4 azar* METFORMIN 1,000 MG TABLET Take 1 tablet by mouth twice * BLOOD-GLUCOSE METER KIT As directed ALBUTEROL SULFATE HFA 90 MCG/* Inhale 2 Puffs as instructed. GLIPIZIDE 10 MG TABLET Take 2 in am before breakfast* Patient not taking: Reported on 08/17/2017 Problem List As Of Date 08/17/2017 Noted Resolved Diabetes mellitus type 2, uncontrolled, without*INVALID FOR* Asthma with COPD with exacerbation (HCC) [J44.1*INVALID FOR*06/28/2015 HTN (hypertension) [I10] INVALID FOR* Anxiety [F41.9] INVALID FOR* Asthma [J45.909] INVALID FOR* Non morbid obesity [E66.9] INVALID FOR* NO SHOW INVALID FOR* Renal mass [N28.89] INVALID FOR* Morbid obesity (HCC) [E66.01] INVALID FOR* Follow-up and Disposition History Recorded Letter Text Encounter Status:Closed by HEATHER TORRES MD on 08/17/17 ONCOLOGY HISTORY AND Observed: 08/10/2017 Status: F Source: [place] [facility] 2:08 PM [facility] [place] [facility] Medical Records Department [address] [place] [address] History and Physical 08/10/17 1323 MR#: [id number] Acct: [id number] Name: TESS HALL Rep #: [id number] : 1980 36 From: Mark Bassett MD PCP: Care Physician, No Primary Status: REG RCR Y Location: OMD - Problem List (1) Mass of left kidney Status: Chronic Subjective Date of Service:: 08/10/17 Chief Complaint: Left kidney mass on CT History of Present Illness: 36-year-old female with a medical history notable for morbid obesity, diabetes, reactive airways disease secondary to smoking and history of recurrent UTIs. The patient is being seen for a second opinion regarding an incidentally discovered left kidney mass on abdominal CT. Her records indicate that the mass was first noted on a CAT scan the abdomen in September 2014 although the patient reports that she was informed of the presence of the mass only in June 2017 when she had another CT of the abdomen to evaluate for abdominal pain and a yet another episode of UTI. A follow-up CT scan in July 2017 was compared to the one of September 2014 confirming a left kidney posterior central enhancing mass measuring 3.8 cm in maximum diameter that had slightly enlarged in comparison to the CT of 2014. The patient reports recurrent UTIs but she has not experienced any gross hematuria. She had seen a urologist at [facility] who advised a biopsy and if confirmed malignancy nephrectomy. Patient has a history of complicated and is quite nervous about consenting to any surgical intervention which prompted today's consultation. Health History: Past Medical History (Last Reviewed 08/10/17 @ 13:14 by Irene Mercado) Acute UTI (Acute) Anxiety (Acute) Depressive disorder (Acute) Diabetes mellitus (Acute) Morbid obesity (Acute) Pyelonephritis (Acute) Smoker (Acute) diabetes mellitus (Acute) Past Surgical History (Last Reviewed 08/10/17 @ 13:14 by Irene Mercado) History of tubal ligation (Acute) Previous section (Acute) Family History (Last Updated 08/10/17 @ 13:14 by Irene Mercado) Father Diabetes Uncle Cancer Grandmother Diabetes Allergies/Adverse Reactions: Allergy/AdvReac Type Severity Reaction Status Date / Time acetaminophen [From Tylenol] AdvReac Severe Hives Verified 08/10/17 13:15 clindamycin AdvReac Severe Hives Verified 08/10/17 13:15 Home Medications Medication Instructions Recorded Metformin HCl [Glucophage] 500 mg PO BIDCM 06/06/14 Risk Factors Social History Smoking Status Current every day smoker Tobacco Risk Data: Tobacco Risk Smoking Status Current every day smoker Type of tobacco: Smokeless tobacco usage: Current Items/Day: Year started: Years used: 10 Counseled to quit/cut down: Reason for no counseling performed: Reason for no pharmacotherapy: Tobacco use comments: Passive smoke exposure: Substance Risk Drug use: Caffeine use [drinks/day]: Alcohol use: No Type of alcohol: Drinks per day: Has patient felt the need to cut down: Has the patient been annoyed by complaints: Has the patient felt guilty about drinking: Has the patient needed an eye wage analyst in the mornings: Comments: Review of Systems Constitutional:: Denies: Fever, Sweats, Weight loss, Appetite change, Chills - Her activities and mobility are limited by her size but she is able to do ADL independently. Cardiovascular:: Reports: Dyspnea on exertion. Denies: Chest pain, Palpitations, Orthopnea, PND, Shortness of breath Respiratory: Reports: Shortness of breath upon exertion. Denies: Cough, Hemoptysis, Shortness of Breath, Wheezing Gastrointestinal:: Reports: Abdominal pain - The pain that prompted June 2017 CT scan resolved after treatment for UTI. Denies: Nausea, Vomiting, Diarrhea, Constipation, Hematochezia Genitourinary: Denies: Dysuria, Hematuria, 15, Flank pain Musculoskeletal:: Reports: Arthritis - Of the large lower extremity joints degenerative in nature, Back pain - Chronic back pain, Arthralgia. Denies: Myalgia Skin: Denies: Rash, Skin Changes, Wounds Neurological:: Denies: Headache, Dizziness, Visual changes, Tinnitus, Hearing loss Psychiatric: Reports: Anxiety. Denies: Depression, Homicidal Ideations, Suicidal Ideations - Physical Exam General: Alert, Oriented x3, No apparent distress, - - Morbidly obese ECOG 1-2 HEENT: Atraumatic, PERRLA, EOMI, Normocephalic Oropharynx:: Dry mucosa Neck:: Supple, Trachea midline. Negative for: JVD, bilateral Cardiac:: Regular rate, Regular rhythm, Normal S1, Normal S2. Negative for: Murmur Lungs: Clear to auscultation, Excusion symmetrical. Negative for: Rhonchi, Wheezes Abdomen:: Soft, Non-tender, Non-distended. Negative for: Hepatosplenomegaly Extremities:: Edema - Gross nonpitting. Negative for: Cyanosis Neurological: Neuro grossly intact Skin:: Negative for: Lesions, Rash, Petechiae, Ecchymosis Psychiatric:: Appropriate affect, Euthymic Lymphatics:: Negative for: Cervical lymphadenopathy, Supraclavicular lymphadenopathy, Axillary lymphadenopathy Diagnostic Data: CT scan images from 2014, and not available. Reports reviewed. Patient is to request and hand deliver images. Assessment and Plan 36-year-old female with incidentally detected left small renal mass (SRM, less than 4 cm) the mass demonstrates contrast enhancement and has grown slightly from 05/2017. The differential diagnosis is between: 1. An indolent renal cell carcinoma. 2. A benign renal tumor most commonly oncocytoma. Recommendations: I advice a second surgical urology consultation at either [facility] [place] or [facility] [place]. The patient was seen with her sister and were given contact info for both locations to decide where to go. Advised to hand carry it disc on which all her CAT scan imaging of 2014 and 2017 at the time of consultation. If a malignancy is confirmed would be happy to see her in medical oncology follow-up. Medications: Prescriptions This Visit Medication Instructions Recorded Primary Care Provider: No Primary Care Phys Referring Provider: No Primary Care Phys 08/10/17 1408 <Electronically signed by Mark Bassett MD> Date Mark Bassett MD Cosigner Signature: Date (if applicable) CC: No Primary Care Physician; Mark Bassett MD Signed BUN Collected: 07/20/2017 Status: F Source: [facility] 10:57 AM [facility] REPOSITORY TYPE CODE TESTS RESULT OUT OF RANGE REFERENCE UNITS LAB [id number](LO 7-18 mg/dL INC) Normal BUN 16 Performed By: #### [id number] #### [facility] [address] [id number] CREATININE Collected: 07/20/2017 Status: F Source: [place] 10:57 AM [facility] REPOSITORY TYPE CODE TESTS RESULT OUT OF REFERENCE UNITS RANGE LAB [id number](LO 0.6-1.3 mg/dL INC) Low Creatinine 0.5 Performed By: #### [id number] #### [facility] [address] [id number] EGFR Collected: 07/20/2017 Status: F Source: [place] 10:57 AM [facility] REPOSITORY Order Comment: Order added by Discern Expert. TYPE CODE TESTS RESULT OUT OF RANGE REFERENCE UNITS LAB [id number](LO mL/min/1.73 INC) m2 Normal eGFR >60 LAB 14999107(LO mL/min/1.73 INC) m2 Normal eGFR AA >60 Performed By: #### [id number] #### [facility] [id number] ABDOMEN/PELVIS W/ + Observed: 07/16/2017 Status: F Source: [place] W/O CONTRAST 10:48 AM [facility] REPOSITORY Exam Date/Time: 07/16/2017 11:18 EDT Reason for Exam: PYELONEPHRITIS;Pain Report EXAM: CT Abdomen/Pelvis w/ + w/o Contrast CLINICAL STATEMENT: Possible left renal mass. Right-sided pain. COMPARISON: Unenhanced CT on 06/17/2017 and 09/26/2014 TECHNIQUE: Triphasic pre- and postcontrast abdominopelvic CT, using Omnipaque 300, 100 mL IV. Positive oral contrast was also given and multiplanar reformats were generated. Dose reduction techniques were achieved by using automated exposure control and/or adjustment of mA and/or kV according to patient size and/or use of iterative reconstruction technique. FINDINGS: Atelectasis in the right lung base. Nondilated gallbladder. Unremarkable liver, spleen, pancreas, and adrenals. Unremarkable right kidney. Recently seen retroperitoneal opacity inferior to the right kidney has resolved. There is a left posterior kidney centrally located enhancing mass, 3.8 x 2.9 x 2.8 cm, slightly enlarged since 2015. Small cystic or necrotic components are seen inferiorly. No other worrisome renal masses. No hydroureteronephrosis. Collecting systems and opacified ureters are unremarkable. Urinary bladder is unremarkable. The left distal ureter does not optimally opacify. No acute bowel findings. Appendix not identified. No free fluid, free air, or enlarged lymph node. Laxity of the anterior abdominal wall. Major vessels including the renal veins are patent. Multilevel spondylosis without worrisome bone lesion. IMPRESSION: Mild enlargement of a left renal mass measuring up to 3.8 cm. Consider slowly growing RCC or oncocytoma although these can not be differentiated based on imaging characteristics. No vascular involvement or metastatic disease in the abdomen or pelvis. Right retroperitoneal fluid/inflammation inferior to the right kidney has Exam Date/Time: 07/16/2017 11:18 EDT Report resolved. FINAL REPORT Dictated: 07/16/2017 3:01 pm Gerber García MD, I Signed (Electronic Signature): 07/16/2017 3:01 pm Signed by: Gerber García MD, I Technologist: ZURI CT-CT ABDOMEN/PELVIS W/ + Observed: 07/16/2017 Status: F Source: [place] W/O CONTRAST IMPORT 12:00 AM [facility] REPOSITORY Images were obtained outside of [facility] [id number] GLUCOSE POC Collected: 06/18/2017 Status: F Source: [facility] 12:13 AM [facility] REPOSITORY TYPE CODE TESTS RESULT OUT OF REFERENCE UNITS RANGE LAB [id number](LO 70-99 mg/dL INC) High Glucose POC 277 Performed By: #### [id number] #### [facility] POC Subsection [address] [place] [address] Observed: 06/17/2017 Status: F Source: [facility] C BLOOD 11:33 PM [facility] REPOSITORY Final Report: No growth at 5 Days Performed By: #### [id number] #### [facility] Microbiology Automated Subsection [address] [place] [address] GLUCOSE POC Collected: 06/17/2017 Status: F Source: [place] 11:31 PM [facility] REPOSITORY TYPE CODE TESTS RESULT OUT OF REFERENCE UNITS RANGE LAB [id number](LO 70-99 mg/dL INC) High Glucose POC 283 Performed By: #### [id number] #### [facility]RIS POC Subsection [address] [place] [address] Observed: 06/17/2017 Status: F Source: [place] BLOOD 11:29 PM [facility] REPOSITORY Final Report: No growth at 5 Days Performed By: #### [id number] #### [facility] Microbiology Automated Subsection [address] [place] [address] Observed: 06/17/2017 Status: F Source: [place] URINE 10:22 PM [facility] REPOSITORY Final Report: >100,000 cfu/ml Escherichia coli ORGANISM: EC SUSCEPTIBILITY RESULTS Antibiotic PATTI Dilutn PATTI Interp ORGANISM: EC Amox/Cla : <=8/4 S Amp : <=8 S Amp/Sul : <=8/4 S Cefaz : <=8 S Cefo : <=2 S Cipro : <=1 S Gent : <=4 S Levo : <=2 S Renetta : <=1 S Nitro : <=32 S Pip/Marco : <=16 S Tetra : <=4 S Tobra : <=4 S SXT : <=2/38 S Performed By: #### [id number] #### [facility] Microbiology Subsection [address] [place] [address] CT ABDOMEN/PELVIS W/O Observed: 06/17/2017 Status: F Source: [place] CONTRAST 9:27 PM [facility] REPOSITORY Exam Date/Time: 06/17/2017 21:53 EST Reason for Exam: Abdominal Pain;Other (please specify) Report EXAM: CT abdomen and Pelvis without contrast dated 06/17/2017 9:27 PM HISTORY: 36-year-old female with right-sided abdominal pain and bladder infection. COMPARISON STUDY: 05/11/2017. TECHNIQUE: Multidetector spiral CT of the abdomen was performed from lung bases to pubic symphysis. Imaging was performed without IV contrast. Axial, coronal and sagittal multiplanar reformats were obtained from the axial data set by the technologist. Dose reduction techniques were achieved by using automated exposure control and/or adjustment of mA and/or kV according to patient size and/or use of iterative reconstruction technique. FINDINGS: Evaluation of solid organs is limited due to lack of intravenous contrast use. Lung Bases: Linear atelectasis or scarring at the right base similar to the prior. Normal heart size. Trace right effusion. Liver: The liver is normal in size. No focal lesions. Gallbladder and Biliary Tree: Unremarkable Spleen: Unremarkable Pancreas: The pancreas is grossly normal in appearance. Adrenal Glands: Unremarkable There is severe perinephric and periureteric fat stranding on the right with mild perinephric stranding on the left. No definite obstructing stones are visualized in the kidneys or along the course of the ureters on either side however there is mild right collecting system fullness. Irregularity and fat stranding at the lower pole of the right kidney is noted with high density material at the lower pole of the right kidney measuring approximately 2.2 x 2.3 cm and abutting the psoas musculature. Mild adjacent subcentimeter retroperitoneal lymphadenopathy. Within the hilum of the left kidney there is extensive artifact however there is the suggestion of a heterogeneous appearing 3.0 x 2.8 cm area of renal parenchyma for which an underlying mass is not excluded. This can be seen on series 4 image 68 and series 2 image 56. Large ventral abdominal wall defect contains multiple loops of enteric and Exam Date/Time: 06/17/2017 21:53 EST Report large bowel without features of high-grade obstruction. Findings are poorly evaluated without oral contrast administration however appear to be grossly similar to the prior study. Mildly prominent loops of enteric bowel in the upper abdomen on the left are again identified. Mild haziness and stranding in the lower pelvis adjacent to the hernia sac may represent a degree of vascular congestion however there is also artifact noted which somewhat obscures evaluation. No evidence of acute appendicitis. Vasculature: The visualized abdominal aorta is normal in size and caliber. Evaluation of abdominal and pelvic vessels is limited due to lack of intravenous contrast. Pelvic Organs: Unremarkable Musculoskeletal: No aggressive focal bony lesions, acute fractures or dislocation. Osteopenia and degenerative changes of the spine. IMPRESSION: Severe right perinephric and periureteric fat stranding with no definite obstructing etiology or stone identified. High density material inferior to the right renal parenchyma abutting the psoas musculature is nonspecific and may represent hemorrhage or proteinaceous content, however incompletely evaluated without contrast. Recommend laboratory evaluation and urological consultation. Heterogeneous appearing area within the left renal parenchyma as described poorly evaluated without intravenous contrast for which an underlying mass/lesion is not entirely excluded. Recommend contrast-enhanced examination or alternatively targeted ultrasound or MRI for further evaluation as underlying neoplastic etiology is not excluded. Small right effusion with right base atelectasis/infiltrate. FINAL REPORT Dictated: 06/18/2017 5:04 am Luis Manuel Baker MD Signed (Electronic Signature): 06/18/2017 5:04 am Signed by: Luis Manuel Baker MD Technologist: MALATHI Queen BHCG QLT Collected: 06/17/2017 Status: F Source: [facility] 9:14 PM [facility] REPOSITORY TYPE CODE TESTS RESULT OUT OF RANGE REFERENCE UNITS LAB [id number](HECTOR Neg NC) Normal U beta Neg hCG Ql Performed By: #### [id number] #### [facility] Urinalysis Manual Subsection [address] [place] [address] UA COMPLETE Collected: 06/17/2017 Status: F Source: [facility] 9:14 PM [facility] REPOSITORY TYPE CODE TESTS RESULT OUT OF RANGE REFERENCE UNITS LAB 93422628( Yellow LOINC) Normal UA Color Yellow LAB 41402986( Clear LOINC) UA Clarity Abnormal Cloudy LAB 34780385( Negative LOINC) UA Glucose Abnormal 3+ LAB 78772509( Negative LOINC) Normal UA Bili Negative LAB 81629019( Negative LOINC) Normal UA Ketones Negative LAB 48949037( 1.003-1.030 LOINC) Normal UA Spec Grav 1.022 LAB 50265703( 4.6-8.0 LOINC) Normal UA pH 5.0 LAB 72048757( Negative LOINC) UA Protein Abnormal 2+ LAB 27417287( LOINC) Normal UA Urobilinogen Negative LAB 61045851( Negative LOINC) Normal UA Nitrite Negative LAB 09636287( Negative LOINC) Normal UA Blood 3+ LAB 10963505( Negative LOINC) UA Leuk Est Abnormal 1+ LAB 61623752( 0-3 /HPF LOINC) UA RBC Abnormal >50 LAB 67772924( 0-5 /HPF LOINC) UA WBC Abnormal >50 LAB 89904781( 0-5 /HPF LOINC) UA Squam Abnormal Epithelial 5-10 Performed By: #### [id number] #### CH[facility] Urinalysis Automated Subsection [address] [id number] CBC W/ AUTO DIFF Collected: 06/17/2017 Status: F Source: [facility] 8:42 [facility] REPOSITORY TYPE CODE TESTS RESULT OUT OF RANGE REFERENCE UNITS LAB 75734009(L 3.6-11.0 E3/mcL OINC) Normal WBC 9.6 LAB 69795798(L 3.90-5.40 E6/mcL OINC) Normal RBC 4.54 LAB 62267450(L 12.0-16.0 G/DL OINC) Normal Hgb 12.5 LAB 78422050(L 36.0-48.0 % OINC) Normal Hct 37.3 LAB 47538430(L 11.5-14.5 % OINC) Normal RDW 14.0 LAB 34831386(L 27.0-31.0 pg OINC) Normal MCH 27.6 LAB 40744264(L 33.0-37.0 G/DL OINC) Normal MCHC 33.6 LAB 22739458(L 78.0-100.0 fL OINC) Normal MCV 82.1 LAB 29468337(L 7.4-11.0 fL OINC) Normal MPV 8.0 LAB 96873248(L 130-400 E3/mcL OINC) Normal Platelet 223 Performed By: #### [id number] #### [facility] [address] [id number] AUTO DIFF Collected: 06/17/2017 Status: F Source: [facility] 8:42 [facility] REPOSITORY Order Comment: Order Added by Discern Expert. TYPE CODE TESTS RESULT OUT OF RANGE REFERENCE UNITS LAB 56214335(L 37.0-75.0 % OINC) Normal Neutro Auto 72.9 LAB 84844788(L 20.0-55.0 % OINC) Low Lymph Auto 18.8 LAB 07598097(L 0.0-10.0 % OINC) Normal Martin Auto 6.3 LAB 92660697(L 0.0-11.0 % OINC) Normal Eos Auto 1.4 LAB 01526347(L 0.0-2.0 % OINC) Normal Basophil Auto 0.6 LAB 33316581(L 1.4-6.5 E3/mcL OINC) High Neutro 7.0 Absolute LAB 87693338(L 1.2-3.4 E3/mcL OINC) Normal Lymph Absolute 1.8 LAB 21853169(L 0.0-0.7 E3/mcL OINC) Normal Martin Absolute 0.6 LAB 82975848(L 0.0-0.7 E3/mcL OINC) Normal Eos Absolute 0.1 LAB 73332236(L 0.0-0.2 E3/mcL OINC) Normal Basophil 0.1 Absolute Performed By: #### [id number] #### [facility] [place] [address] BMP Collected: 06/17/2017 Status: F Source: FAITH 8:[address] [place] [address] REPOSITORY TYPE CODE TESTS RESULT OUT OF RANGE REFERENCE UNITS LAB 08545002(L 70-99 mg/dL OINC) High Glucose Lvl 294 LAB 63702859(L 8.4-10.2 mg/dL OINC) Calcium Normal Lvl 8.6 LAB 19069597(L 136-145 mEq/L OINC) Low Sodium Lvl 135 LAB 38895943(L 3.5-5.1 mEq/L OINC) Normal Potassium Lvl 4.0 LAB 99045624(L 98-107 mEq/L OINC) Chloride Normal 104 LAB 01822716(L 24.0-30.0 mEq/L OINC) CO2 Normal 24.9 LAB 36923230(L 7-18 mg/dL OINC) BUN Normal 15 LAB 4845667(LO 0.6-1.3 mg/dL INC) Low Creatinine 0.4 LAB 27499189(L 5.4-30.0 ratio OINC) High BUN/Creat Ratio 37.5 Performed By: #### [id number] #### [facility] [place] [address] EGFR Collected: 06/17/2017 Status: F Source: [facility] 8:42 [facility] REPOSITORY Order Comment: Order added by Discern Expert. TYPE CODE TESTS RESULT OUT OF RANGE REFERENCE UNITS LAB [id number](LO mL/min/1.73 INC) m2 Normal eGFR >60 LAB 67147260(LO mL/min/1.73 INC) m2 Normal eGFR AA >60 Performed By: #### [id number] #### CHRIS BernabeCoverItLive[address] [place] [address] HEP FUNC PANEL Collected: 06/17/2017 Status: F Source: FAITH 8:42 PM [facility] REPOSITORY TYPE CODE TESTS RESULT OUT OF RANGE REFERENCE UNITS LAB [id number](L 10-40 Int._Unit/L OINC) Normal ALT 13 LAB 28305466(L 10-42 Int._Unit/L OINC) Normal AST 10 LAB 45069335(L 3.2-5.0 G/DL OINC) Low Albumin Lvl 3.1 LAB 04891911(L 2.0-4.0 G/DL OINC) Normal Globulin 3.1 LAB 02203997(L 1.1-1.9 ratio OINC) Low A/G Ratio 1.0 LAB 15943267(L 42-121 Int._Unit/L OINC) Normal Alk Phos 94 LAB 84929246(L .00-.20 mg/dL OINC) Normal Bili Direct <.10 LAB 49008247(L OINC) Normal Bili Indirect >0.2 Result Comment: No established ranges available for the Indirect Biliruben. LAB 72890518(LOINC) 0.2-1.0 mg/dL Normal Bili Total 0.3 LAB 08068137(LOINC) 6.4-8.3 G/DL Low Total Protein 6.2 Performed By: #### [id number] #### CHRIS Mojostreet [address] [place], [place] [id number] LIPASE LEVEL Collected: 06/17/2017 Status: F Source: FAITH 8:42 PM [facility] REPOSITORY TYPE CODE TESTS RESULT OUT OF RANGE REFERENCE UNITS LAB 08310207(LO 8-57 U/L INC) Normal Lipase Lvl <10 Performed By: #### [id number] #### CHRIS Mojostreet [facility] [place] [address] CT-CT ABDOMEN/PELVIS W/O Observed: 06/17/2017 Status: F Source: PHILLIPS CONTRAST IMPORT 12:00 AM [facility] REPOSITORY Images were obtained outside of [facility] [id number] CT ABDOMEN/PELVIS W/O Observed: 05/11/2017 Status: F Source: FAITH CONTRAST 2:49 PM [facility] REPOSITORY Exam Date/Time: 05/11/2017 14:59 EST Reason for Exam: Abdominal Pain;Other (please specify) Report CT ABDOMEN AND PELVIS WITHOUT CONTRAST HISTORY: Abdominal pain. COMPARISON: 09/26/2014. METHOD: Dose reduction techniques were achieved by using automated exposure control and/or adjustment of mA and/or kV according to patient size and/or use of iterative reconstruction technique. FINDINGS: The lung bases are clear. The evaluation of solid organs is limited without IV contrast. The spleen is normal in size. The adrenal glands are normal appearing. There are no renal stones or hydronephrosis. There is a lower abdominal wall ventral hernia with small bowel loops which are nonobstructed. There is no free fluid. Evaluation for lymphadenopathy is limited with no IV contrast. The appendix is normal appearing. IMPRESSION: Lower abdominal wall ventral hernia with small bowel loops which are nonobstructed. Normal appendix. FINAL REPORT Dictated: 05/11/2017 3:46 pm Guicho Medina MD Signed (Electronic Signature): 05/11/2017 3:46 pm Signed by: Guicho Medina MD Technologist: ESTEFANIA ZIEGLERG QLT Collected: 05/11/2017 Status: F Source: FAITH 2:13 PM [facility] REPOSITORY TYPE CODE TESTS RESULT OUT OF RANGE REFERENCE UNITS LAB 1312925(HECTOR Neg NC) Normal U beta Neg hCG Ql Performed By: #### [id number] #### CHRIS [place] [address] UA COMPLETE Collected: 05/11/2017 Status: F Source: FAITH 2:13 PM [facility] REPOSITORY TYPE CODE TESTS RESULT OUT OF RANGE REFERENCE UNITS LAB 52763627( Yellow LOINC) Normal UA Color Yellow LAB 38420659( Clear LOINC) UA Clarity Abnormal SltCloudy LAB 12203356( Negative LOINC) Normal UA Glucose Negative LAB 89607522( Negative LOINC) Normal UA Bili Negative LAB 69761640( Negative LOINC) Normal UA Ketones Negative LAB 58559526( 1.003-1.030 LOINC) Normal UA Spec Grav 1.016 LAB 54585693( 4.6-8.0 LOINC) Normal UA pH 5.0 LAB 82725412( Negative LOINC) Normal UA Protein Negative LAB 12481474( LOINC) Normal UA Urobilinogen Negative LAB 01713735( Negative LOINC) UA Nitrite Abnormal Positive LAB 76833889( Negative LOINC) Normal UA Blood 3+ LAB 09098943( Negative LOINC) UA Leuk Est 3+ Abnormal LAB 75574904( 0-3 /HPF LOINC) UA RBC Abnormal 10-20 LAB 21169177( 0-5 /HPF LOINC) UA WBC Abnormal >50 LAB 61788753( 0-5 /HPF LOINC) Normal UA Squam Epithelial 0-5 LAB 59755720( None /HPF LOINC) UA Bacteria Abnormal Trace LAB 08914064( Trace /LPF LOINC) UA Mucous Abnormal Trace LAB 00948242( None /HPF LOINC) UA WBC Abnormal Clump Few Performed By: #### [id number] #### CHRIS Urinalysis Automated Subsection [address] [place] [address] CBC W/ AUTO DIFF Collected: 05/11/2017 Status: F Source: FAITH 1:58 PM [facility] REPOSITORY TYPE CODE TESTS RESULT OUT OF RANGE REFERENCE UNITS LAB 30542188(L 3.6-11.0 E3/mcL OINC) Normal WBC 9.2 LAB 32800104(L 3.90-5.40 E6/mcL OINC) Normal RBC 4.53 LAB 79403166(L 12.0-16.0 G/DL OINC) Normal Hgb 12.6 LAB 57480315(L 36.0-48.0 % OINC) Normal Hct 38.1 LAB 08915047(L 11.5-14.5 % OINC) Normal RDW 13.6 LAB 72412815(L 27.0-31.0 pg OINC) Normal MCH 27.7 LAB 60976362(L 33.0-37.0 G/DL OINC) Normal MCHC 33.0 LAB 18972358(L 78.0-100.0 fL OINC) Normal MCV 84.0 LAB 19744137(L 7.4-11.0 fL OINC) Normal MPV 8.3 LAB 38463588(L 130-400 E3/mcL OINC) Normal Platelet 204 Performed By: #### [id number] #### [facility] [place] [id number] AUTO DIFF Collected: 05/11/2017 Status: F Source: FAITH 1:58 [facility] REPOSITORY Order Comment: Order Added by Discern Expert. TYPE CODE TESTS RESULT OUT OF RANGE REFERENCE UNITS LAB 21301058(L 37.0-75.0 % OINC) Normal Neutro Auto 72.6 LAB 85368103(L 20.0-55.0 % OINC) Low Lymph Auto 18.5 LAB 07848739(L 0.0-10.0 % OINC) Normal Martin Auto 6.9 LAB 99733243(L 0.0-11.0 % OINC) Normal Eos Auto 1.7 LAB 10252359(L 0.0-2.0 % OINC) Normal Basophil Auto 0.3 LAB 72918579(L 1.4-6.5 E3/mcL OINC) High Neutro 6.6 Absolute LAB 03729925(L 1.2-3.4 E3/mcL OINC) Normal Lymph Absolute 1.7 LAB 72291438(L 0.0-0.7 E3/mcL OINC) Normal Martin Absolute 0.6 LAB 55290338(L 0.0-0.7 E3/mcL OINC) Normal Eos Absolute 0.2 LAB 78846405(L 0.0-0.2 E3/mcL OINC) Normal Basophil 0.0 Absolute Performed By: #### [id number] #### CHRIS FlorecitaHemlydia [facility] [place] [address] BMP Collected: 05/11/2017 Status: F Source: FAITH 1:58 [facility] REPOSITORY TYPE CODE TESTS RESULT OUT OF RANGE REFERENCE UNITS LAB 35737182(L 70-99 mg/dL OINC) High Glucose Lvl 206 LAB 76354274(L 8.4-10.2 mg/dL OINC) Calcium Normal Lvl 8.4 LAB 38009009(L 136-145 mEq/L OINC) Low Sodium Lvl 132 LAB 52076492(L 3.5-5.1 mEq/L OINC) Normal Potassium Lvl 4.0 LAB 80578443(L 98-107 mEq/L OINC) Chloride Normal 103 LAB 64916102(L 24.0-30.0 mEq/L OINC) Low CO2 23.2 LAB 67887404(L 7-18 mg/dL OINC) BUN Normal 16 LAB 2680913(LO 0.6-1.3 mg/dL INC) Low Creatinine 0.5 LAB 47664286(L 5.4-30.0 ratio OINC) High BUN/Creat Ratio 32.0 Performed By: #### [id number] #### CHRIS [employer] [facility] [place] 1562405 HEP FUNC PANEL Collected: 05/11/2017 Status: F Source: FAITH 1:58 PM [facility] REPOSITORY TYPE CODE TESTS RESULT OUT OF RANGE REFERENCE UNITS LAB 11919174(L .00-.20 mg/dL OINC) Normal Bili Direct <.10 LAB 70762545(L 10-40 Int._Unit/L OINC) Normal ALT 15 LAB 12223928(L 10-42 Int._Unit/L OINC) Normal AST 13 LAB 14030679(L 3.2-5.0 G/DL OINC) Normal Albumin Lvl 3.3 LAB 29118795(L 2.0-4.0 G/DL OINC) Normal Globulin 3.1 LAB 96552404(L 1.1-1.9 ratio OINC) Normal A/G Ratio 1.1 LAB 55345739(L 42-121 Int._Unit/L OINC) Normal Alk Phos 89 LAB 44455680(L OINC) Normal Bili Indirect >0.4 Result Comment: No established ranges available for the Indirect Biliruben. LAB 02487791(LOINC) 0.2-1.0 mg/dL Normal Bili Total 0.5 LAB 01023770(LOINC) 6.4-8.3 G/DL Normal Total Protein 6.4 Performed By: #### 7840101 #### CHRIS Mojostreet [facility] [place] [id number] EGFR Collected: 05/11/2017 Status: F Source: FAITH 1:58 PM [facility] REPOSITORY Order Comment: Order added by Discern Expert. TYPE CODE TESTS RESULT OUT OF RANGE REFERENCE UNITS LAB 92054987(LO mL/min/1.73 INC) m2 Normal eGFR >60 LAB 06205491(LO mL/min/1.73 INC) m2 Normal eGFR AA >60 Performed By: #### 12781506 #### CHRIS [employer] [facility] [place] [address] LIPASE LEVEL Collected: 05/11/2017 Status: F Source: FAITH 1:58 PM [facility] REPOSITORY TYPE CODE TESTS RESULT OUT OF RANGE REFERENCE UNITS LAB 15956545(LO 8-57 U/L INC) Normal Lipase Lvl 14 Performed By: #### [id number] #### CHRIS [employer] [facility] [place] [address] CT-CT ABDOMEN/PELVIS W/O Observed: 05/11/2017 Status: F Source: STEGER CONTRAST IMPORT 12:00 AM [facility] [place] REPOSITORY Images were obtained outside of [facility] [id number] ALLERGIES ALLERGIES DATE TYPE / NAME / CODE REACTION SEVERITY SOURCE CODE 02/08/2018 Drug acetaminophen/F0060 Hives SV Manuela Allergy/41 77399(RXNORM) Community 4807254([facility] CT) Repository 02/08/2018 Drug clindamycin/I115231 Hives Manuela Allergy/41 794(RXNORM) Community 3993455([facility] CT) Repository 08/17/2017 DRUG CLINDAMYCIN HIVES [address] 9348640( Repository OMED CT) 08/17/2017 DRUG ACETAMINOPHEN HIVES [address] 6954787( Repository OMED CT) DR/5854363 acetaminophen vomiting Haro Kyree 06([facility] CT) Repository DR/7095344 Bee Stings sob Haro Emanuel 06([facility] CT) Repository Drug/59802 Bee Stings 893506763 Severe [facility] 1003([facility] CT) System Repository Drug NO KNOWN ALLERGIES [facility] Class/[address] [place] [address](SN Repository ED CT) Drug/67559 clindamycin HIVES [facility] 1003([facility] CT) System Repository Drug/20552 No Known Allergies [facility] 1003([facility] CT) System Repository Drug/32833 Tylenol 433176302 [facility] 1003([facility] CT) System Repository ENCOUNTERS ENCOUNTERS ADMIT/DISCHARGE ACCOUNT NUMBER ADMITTING ENCOUNTER LOCATION SOURCE CLASS 03/25/2018 [id number] Ambulatory [facility] ding:WC Repository 03/11/2018 [id number] Ambulatory BMSBuilding: [facility] Repository 03/11/2018/03/12/20 [id number] Ambulatory [address] ding:WC Repository 03/10/2018 [id number] [facility]ulatory [facility] ding:CT Repository 03/03/2018 [id number] Ambulatory BMSBuilding: [facility] Repository 02/25/2018 [id number] Ambulatory BMSBuilding: [facility] Repository 02/22/2018 [id number] Rambo, Ambulatory [facility] ding:[facility] Repository 02/22/2018 [id number] Ambulatory [address] [place] [address] Repository 02/18/2018 [id number] Ambulatory BMSBuilding: [facility] Repository 02/17/2018/02/18/20 [id number] Abdal Ambulatory [facility] Haro Kyree 18 [place], :[facility] Repository 02/15/2018 [id number] Ambulatory [facility] ding:LAB.FUT Repository URE 02/11/2018 [id number] Ambulatory BMSBuilding: [facility] Repository 02/10/2018/02/11/20 [id number] Diaz, Emergency [facility] Haro Kyree 18 [place] F :EDRoom: Medical ED-11Bed: Center CD:[id number] Repository 02/08/2018/02/09/20 [id number] Emergency [address] ding:ED Repository 02/06/2018 [id number] Ambulatory [facility] ding:LAB.FUT Repository URE 01/30/2018/02/05/20 [id number] Agyepong, Inpatient [address] ding:LO9Eobj Repository : BA198Aoc: 1 01/30/2018 [id number] Agyepong, Ambulatory BMSBuilding: [facility]car[facility] BMS.[facility] Repository 01/30/2018 [id number] Agyepong, Ambulatory BMSBuilding: [facility] BMS.[facility] Repository 01/30/2018 [id number] Agyepong, Ambulatory BMSBuilding: [facility] BMS.[facility] Repository 01/30/2018 [id number] Agyepong, Ambulatory BMSBuilding: [facility] BMS.[facility] Repository 01/30/2018 [id number] Agyepong, Ambulatory BMSBuilding: [facility] [place] BMS.[facility] Repository 01/30/2018 [id number] Agyepong, Ambulatory BMSBuilding: Manuela [facility]car[facility] BMS.[facility] Repository 01/23/2018/01/26/20 [id number] BRIAN Inpatient [place] [address] HEATHER [place] [facility] Repository 01/23/2018/01/24/20 [id number] Emergency [address] Repository 01/23/2018/01/24/20 [id number] [facility] 18 Noel Stephens g:[facility] Repository 12/28/2017/12/29/19 [id number] Ambulatory [address] Repository 12/28/2017/12/29/19 [id number] Ambulatory [address] Repository 12/18/2017/12/21/19 [id number] BRIAN [address] [facility] Repository 12/18/2017/12/19/19 [id number] Deepa Emergency FTBuilding Tahir Adorno 18 Astrit H :EDRoom: Medical ED-11Bed: Center CD:[id number] Repository 12/17/2017/12/18/19 [id number] Azar Rayo Emergency FTBuilding Tahir Adorno 18 :EDRoom: Medical ED-07Bed: Center CD:[id number] Repository 12/09/2017/12/16/19 [id number] BRIAN Inpatient [place] [address] HEATHER [place] [facility] [place] Repository 12/01/2017/12/02/19 [id number] Ambulatory [address] Repository 12/01/2017/12/03/19 [id number] Ambulatory [address] Repository 12/01/2017/12/02/19 [id number] Ambulatory [address] Repository 12/01/2017/12/02/19 [id number] Ambulatory [address] Repository 12/01/2017/12/02/19 [id number] Ambulatory [address] Repository 12/01/2017/12/02/19 [id number] Ambulatory [address] Repository 11/04/2017/11/05/19 [id number] Ambulatory [address] [place] Repository ing:AMOlya nd 09/29/2017 [id number] Ambulatory [facility] Repository 09/20/2017/09/21/19 [id number] Noe [address] ding:[facility] EDRoom: Repository 09/20/2017 [id number] Ambulatory [address] [place] [address] Repository 09/02/2017/09/03/19 [id number] [employer]ME[employer]CE[employer] Ambulatory [facility] Haro Kyree 18 AYANA E :[facility] Repository 08/17/2017/08/20/19 [id number] Ambulatory [address] Repository 08/17/2017 [id number] Ambulatory [facility] Repository 08/17/2017/08/22/19 [id number] Ambulatory [address] Repository 08/10/2017 [id number] [facility]ulatory [facility] ding:OMD Repository 08/10/2017 [id number] Ambulatory BMSBuilding: Hope BMS.CF.[facility] Repository 08/04/[id number] Kendall Ambulatory Critical access hospital Repository 07/22/2017/07/23/19 [id number] Ambulatory [address] [facility] [facility] Repository ing:AMOlya ndRoom: Room 3 07/20/2017/07/21/19 [id number] Domenic Pat Ambulatory [address] Regional ding:[facility] Repository 07/16/2017/07/17/19 [id number] Domenic Pat Ambulatory [place] [address] [facility] ding:[facility] Repository 06/24/2017/06/25/19 [id number] [address] Repository ing:AMOlya ndRoom: Room 2 06/22/2017/06/23/19 [id number] [address] Repository ing:AMUAshla nd 06/18/2017/06/19/19 [id number] Domenic Pat Ambulatory [address] Repository lding:Shayna sfieldRoom: Room 2 06/17/2017/06/19/[id number] [place] [address] [facility] EDRoom: WR Repository 05/11/2017/05/11/19 [id number] [place], [place] [address] Kristen [facility] EDRoom: WR Repository PAYERS PAYERS ENCOUNTER GUARANTOR PAYER SUBSCRIBER SOURCE 03/25/2018 TESS Wilhelm Primary TESS Roy [id number] [place] Insurance:CARESOURCEP REISINGDOB: [facility] Number: [id number] Hospital [address]Fvr: [phone] [id number] Repository [phone] () Date:2018-01-26 [address]ATTN: [place] [address]VO: 03/25/2018 Secondary NOT GIVENUNK Manuela Insurance:SELF PAY [facility] Number: Effective Repository Date:2018-03-13 03/11/2018 TESS Wilhelm Primary TESS Roy [id number] [place] Insurance:CARESOURCEP REISINGDOB: [facility] Number: [id number] Hospital [address]Gwc: [phone] [id number] Repository [phone] () Date:2018-01-26 [address]ATTN: [place] [address]CA: 03/11/2018 Secondary NOT GIVENUNK [place] Insurance:SELF PAY [facility] Number: Effective Repository Date:2018-03-11 03/11/2018 TESS J Primary TESS J Hope [id number] [place] Insurance:CARESOURCEP REISINGDOB: [facility] Number: [id number] Hospital [address]Dly: [phone] [id number] Repository [phone] (HP) Date:2018-01-26 [address]ATTN: [place] [address]KP: 03/11/2018 Secondary NOT GIVENUNK Hope Insurance:SELF PAY [facility] Number: Effective Repository Date:2018-01-26 03/10/2018 TESS J Primary TESS J Manuela [id number] [place] Insurance:CARESOURCEP REISINGDOB: [facility] Number: [id number] Hospital [address]Rco: [phone] [id number] Repository [phone] (HP) Date:2018-03-03P [address]ATTN: [place] [address]MK: 03/10/2018 Secondary NOT GIVENUNK Manuela Insurance:SELF PAY [facility] Number: Effective Repository Date:2018-03-03 03/03/2018 TESS J Primary TESS J [place] [id number] [place] Insurance:CARESOURCEP REISINGDOB: [facility] Number: [id number] Hospital [address]Wss: [phone] [id number] Repository [phone] (HP) Date:2018-01-26P [address]ATTN: [place] [address]JQ: 03/03/2018 Secondary NOT GIVENUNK Manuela Insurance:SELF PAY [facility] Number: Effective Repository Date:2018-03-03 02/25/2018 TESS J Primary TESS J [place] [id number] [place] Insurance:CARESOURCEP REISINGDOB: [place]y Number: [id number] Hospital [address]Zob: [phone] [id number] Repository [phone] (HP) Date:2018-01-26 [address]ATTN: [place] [address]OM: 02/25/2018 Secondary NOT GIVENUNK [place] Insurance:SELF PAY [facility] Number: Effective Repository Date:2018-02-25 02/22/2018 TESS Wilhelm Primary TESS Wilhelm Evangelical REISINGDOB: Insurance:CARESOURCE REISINGDOB: [facility] MCAIDPolicy Number: [id number] System [facility], [facility], [facility] Date:2018-02-22 [place] [address]Szw: [id number] [phone]: Name:CD:[id number] (HP) [address] [place] [address] ()Tel: [phone]: [phone] 02/22/2018 TESS Mcconnell REISINGDOB: Insurance:CaresourceP [facility]ISINGDOB[facility] Number: [id number] Repository [facility], [id number] [place], [place] [id number]: Date:[facility] [id number]: Name:[facility] O Box (HP) [address] [place] [address] () [id number]: 02/18/2018 TESS Roy [id number] [place] Insurance:CARESOURCEP REISINGDOB: [place] Number: [id number] Hospital [address]Uvt: [phone] [id number] Repository [phone] (HP) Date:2018-01-26 [address]ATTN: [place] [address]CE: 02/18/2018 Secondary NOT GIVENUNK Hope Insurance:SELF PAY [facility] Number: Effective Repository Date:2018-02-18 02/17/2018 TESS Wilhelm Primary TESS Haro Emanuel REISINGDOB: Insurance:[facility] olic Number: Repository [place] STTel: [phone] [id number] [phone] (HP) Date:[id number] [address]MV: 02/15/2018 TESS Wilhelm Primary TESS Wilhelm Hope [id number] [place] Insurance:CARESOURCEP REISINGDOB: [facility] Number: [id number] Hospital [address]Ecz: [id number] Repository [phone] (HP) Date:2018-02-15 [address]ATTN: [place] [address]PD: 02/15/2018 Secondary NOT GIVENUNK Hope Insurance:SELF PAY [facility] Number: Effective Repository Date:2018-02-15 02/11/2018 TESS Wilhelm Primary TESS Choco [place] [id number] [place] Insurance:CARESOURCEP REISINGDOB: [facility] Number: [id number] Hospital [address]Iqx: [phone] [id number] Repository [phone] () Date:2018-01-26 [address]ATTN: [place] [address]BQ: 02/11/2018 Secondary NOT GIVENUNK [place] Insurance:SELF PAY [facility] Number: Effective Repository Date:2018-02-11 02/10/2018 TESS Wilhelm Primary TESS Haro Kyree REISINGDOB: Insurance:[facility] olicy Number: Repository [place] STTel: [phone]) [id number] [phone] (HP) Date:1202-31-97[address] [address]GR: 02/08/2018 TESS Wilhelm Primary TESS J Manuela [id number] [place] Insurance:CARESOURCEP REISINGDOB: [facility] Number: [id number] Hospital [address]Qgs: [phone]) [id number] Repository [phone] (HP) Date:2018-02-08P [address]ATTN: [place] [address]LU: 02/08/2018 Secondary NOT GIVENUNK Hope Insurance:SELF PAY [facility] Number: Effective Repository Date:2018-02-08 02/06/2018 TESS Wilhelm Primary TESS J [place] [id number] [place] Insurance:CARESOURCEP REISINGDOB: [facility] Number: [id number] Hospital [address]Nyd: [phone] [id number] Repository [phone] () Date:2018-02-06P [address]ATTN: [place] [address]EK: 02/06/2018 Secondary NOT GIVENUNK Manuela Insurance:SELF PAY [facility] Number: Effective Repository Date:2018-02-06 01/30/2018 TESS Wilhelm Primary TESS J Manuela [id number] [place] Insurance:CARESOURCEP REISINGDOB: [facility] Number: [id number] Hospital [address]Rqx: [phone] [id number] Repository [phone] () Date:2018-01-30P [address]ATTN: [place] [address]HB: 01/30/2018 Secondary NOT GIVENUNK Manuela Insurance:SELF PAY [facility] Number: Effective Repository Date:2018-01-30 01/30/2018 TESS J Primary TESS J Manuela [id number] [place] Insurance:CARESOURCEP REISINGDOB: [facility] Number: [id number] Hospital [address]Ywo: [phone] [id number] Repository [phone] (HP) Date:2018-01-30P [address]ATTN: [place] [address]YM: 01/30/2018 Secondary NOT GIVENUNK [place] Insurance:SELF PAY [facility] Number: Effective Repository Date:2018-01-30 01/30/2018 TESS J Primary TESS J [place] [id number] [place] Insurance:CARESOURCEP REISINGDOB: [facility] Number: [id number] Hospital [address]Eaa: [phone] [id number] Repository [phone] (HP) Date:2018-01-30P [address]ATTN: [place] [address]AC: 01/30/2018 Secondary NOT GIVENUNK [place] Insurance:SELF PAY [facility] Number: Effective Repository Date:2018-01-30 01/30/2018 TESS J Primary TESS J [place] [id number] [place] Insurance:CARESOURCEP REISINGDOB: [facility] Number: [id number] Hospital [address]Jhf: [phone] [id number] Repository [phone] () Date:2018-01-30 [address]ATTN: [place] [address]GK: 01/30/2018 Secondary NOT GIVENUNK Manuela Insurance:SELF PAY [facility] Number: Effective Repository Date:2018-01-30 01/30/2018 TESS J Primary TESS J Manuela [id number] [place] Insurance:CARESOURCEP REISINGDOB: [facility] Number: [id number] Hospital [address]Wop: [phone] [id number] Repository [phone] (HP) Date:2018-01-30P [address]ATTN: [place] [address]DQ: 01/30/2018 Secondary NOT GIVENUNK [place] Insurance:SELF PAY [facility] Number: Effective Repository Date:2018-01-30 01/30/2018 TESS J Primary TESS J Manuela [id number] [place] Insurance:CARESOURCEP REISINGDOB: [facility] Number: [id number] Hospital [address]Ods: [phone] [id number] Repository [phone] () Date:2018-01-30P [address]ATTN: [place] [address]ZK: 01/30/2018 Secondary NOT GIVENUNK Hope Insurance:SELF PAY [facility] Number: Effective Repository Date:2018-01-30 01/30/2018 TESS Wilhelm Primary TESS J Manuela [id number] [place] Insurance:CARESOURCEP REISINGDOB: [facility] Number: [id number] Hospital [address]Kvs: [phone]) [id number] Repository [phone] () Date:2018-01-30[address]ATTN: [place] [address]AY: 01/30/2018 Secondary NOT GIVENUNK Manuela Insurance:SELF PAY [facility] Number: Effective Repository Date:2018-01-30 01/23/2018 TESS Wilhelm Primary TESS J Evangelical REISINGDOB: Insurance:1500 REISINGDOB: [facility] [id number] [facility], [facility] [place] Number: [place] [address]Pmr: Date:2018-01-23 [address]Qje: [id number] (HP) Name::[id number] O ()Tel: (000) [address] [phone] (WP) [phone]: 12/18/2017 TESS J Primary TESS J Haro Emanuel REISINGDOB: Insurance:[facility] olicy Number: Repository [place] STTel: [phone] [id number] [phone] (HP) Date:[id number] [address] [address]XW: 12/17/2017 TESS J Primary TESS J Haro Emanuel REISINGDOB: Insurance:[facility] olicy Number: Repository [place] STTel: [phone] [id number] [phone] (HP) Date:3219-52-68BY [address] [address]DE: 11/04/2017 TESS J Primary TESS J Evangelical REISINGDOB: Insurance:[facility] REISINGDOB: [facility] [id number] [facility] [place] Number: [facility] [address]Xyw: Date:2017-07-22Tel: [id number] (HP) Name:CD:[id number] O ()Tel: (000) [address] [place] [address] () [phone]: 09/29/2017 TESS J Primary TESS J University REISINGDOB: Insurance:[facility] REISINGDOB: [facility] olicy Number: [id number] [facility], [id number], [place] [address]Opf: Date:[facility] [address]Jel: Name:[facility] [address] (HP) [address], [place] () [phone]: 09/20/2017 TESS Wilhelm Primary TESS English REISINGDOB: [facility] [place] REISINGDOB: [facility] MCAIDPolicy Number: [id number] System [facility], Effective [facility] Date:2017-09-20 [place] [address]Sww: [id number] [address]Zhv: Name::[id number] (HP) [address] [place] [address] ()Tel: [phone]: (wp) [phone] 09/20/2017 TESS Mcconnell REISINGDOB: Insurance:[employer] REISINGDOB: [facility] olicy Number: [id number] [facility], [id number] [place] [id number]: Date:[facility] [id number]: Name:[facility] O Box (HP) [address] [place] [address] () [id number]: 09/02/2017 TESS Wilhelm Primary TESS Adonro REISINGDOB: Insurance:[facility] olicy Number: Repository [facility]: [phone] [id number] [phone] () Date:[id number] [address] [address]OA: 08/10/2017 TESS Wilhelm Primary TESS Roy [id number] [place] Insurance:CARESOURCEP REISINGDOB: [place] olicy Number: [id number] Hospital [address]Tob: [phone] [id number] Repository [phone] (HP) Date:2017-08-06[address]ATTN: [place] [address]WP: 08/10/2017 Secondary NOT GIVENUNK Hope Insurance:SELF PAY [facility] Number: Effective Repository Date:2017-08-06 08/10/2017 TESS Wilhelm Primary TESS Wilhelm Hope [id number] [place] Insurance:CARESOURCEP REISINGDOB: [facility] Number: [id number] Hospital [address]Rwa: [phone] [id number] Repository [phone] (HP) Date:2017-08-06[address]ATTN: [place] [address]JL: 08/10/2017 Secondary NOT GIVENUNK [place] Insurance:SELF PAY [facility] Number: Effective Repository Date:2017-08-10 08/04/2017 TESS Wilhelm Primary TESS Choco [place] REISINGDOB: Insurance:[employer]P REISINGDOB: [facility] Number: [id number] Repository [facility], [id number] [place], [place] [address]Weo: Date:[facility] [address]Egg: Name:[facility] O Box (HP) [address] [place] [address] () [phone]: 07/22/2017 TESS Wilhelm Primary TESS Wilhelm Evangelical REISINGDOB: Insurance:1500 REISINGDOB: [facility] LYNN [id number] [facility] [place] Number: [place] [address]Izp: Date:2017-06-26 [address]Ikh: [id number] (HP) Name:CD:[id number] O (HP)Tel: (000) [address], [place] [address] (WP) [phone]: 07/20/2017 TESS Wilhelm Primary TESS J Evangelical REISINGDOB: Insurance:[employer]OURCE REISINGDOB: [facility] MCAIDPolicy Number: [id number] [facility], [facility] [place] Date:2017-07-20 [place] [address]Psg: [id number] [address]Dxa: Name:CD:[id number] (HP) [address] [place] [address] (HP)Tel: (000) [phone]: ([phone] 07/16/2017 TESS Wilhelm Primary TESS J Evangelical REISINGDOB: Insurance:[employer]OURCE REISINGDOB: [facility] MCAIDPolicy Number: [id number] [facility], Repository [place] Date:2017-06-30 [place] [address]Dus: [id number] [address]Hmd: Name:CD:[id number] (HP) [address] [place] [address] (HP)Tel: (000) [phone]: (WP) [phone] 06/24/2017 TESS Wilhelm Primary TESS J Evangelical REISINGDOB: Insurance:1500 REISINGDOB: [facility] [id number] [facility], [facility] [place] Number: [place] [address]Ltp: Date:2017-06-18Tel: [id number] (HP) Name:CD:[id number] O (HP)Tel: (000) [address], [place] [address] (WP) [phone]: 06/22/2017 TESS J Primary TESS J Evangelical REISINGDOB: [facility] REISINGDOB: [facility] MCAIDPolicy Number: [id number] [facility], Effective [facility], Repository [place] Date:2017-06-18 [place] [address]Qvc: [id number] [address]Ehw: Name:CD:[id number] (HP) [address] [place] [address] (HP)Tel: (000) [phone]: (WP) [phone] 06/18/2017 TESS Wilhelm Primary TESS Wilhelm Evangelical REISINGDOB: Insurance:1500 REISINGDOB: [facility] [id number] [facility], [facility], Repository [place] Number: [place] [address]Spa: Date:2017-06-18Tel: [id number] (HP) Name:CD:[id number] O (HP)Tel: (000) [address] [place] [address] (WP) [phone]: 06/17/2017 TESS Wilhelm Primary TESS Wilhelm Evangelical REISINGDOB: Insurance:[employer]OURCE REISINGDOB: [facility] MCAIDPolicy Number: [id number] [facility], Effective [facility], Repository [place] Date:2017-06-17 - [place] [address]Nim: [id number] [address]Kpg: Name:CD:[id number] (HP) [address] [place] [address] (HP)Tel: (000) [phone]: (WP) [phone] 05/11/2017 TESS J Primary TESS J Evangelical REISINGDOB: [facility] MCAIDPolicy Number: [id number] [facility] Date:2017-05-11 [place] [address]Iqj: [id number] [address]Oil: Name:CD:[id number] () [address] [place] [address] ()Tel: [phone]: [phone]
== END 2018-04-12 23:59 ==
LOC: WC 09:15
PROVIDERS: Visit Provider Internal Medicine
DX: T81.30XA Disruption of wound, unspecified, initial encounter (principal); Y83.8 Other surgical procedures as the cause of abnormal reaction of the patient, or of later complication, without mention of misadventure at the time of the procedure; Z90.5 Acquired absence of kidney; Z85.528 Personal history of other malignant neoplasm of kidney
CPT/HCPCS: 11042; 97607; 99212; 99213; G0463

== ENCOUNTER 2023-10-07 14:48 | Outpatient (RCR) | payer MEDICAID, SELFPAY ==
[2023-10-07 15:43] VITALS: BP 165/92; PULSE 102; RESP 24; TEMP 35.7; BMI 61.4
--- NOTE | 2023-10-07 15:51 | HP.PCM_ITS ---
History of Present Illness Date of Service: 10/07/23 Chief Complaint: Ulcer to right lower abdomen History of Wound: Ms. Rosenberg is a 42-year-old diabetic female presenting to wound care center today for bilateral lower extremity ulcerations. Patient was referred to the wound care center from a doctor in [place]. She does see podiatry in [place]. Patient has evidence of left proximal and heel ulcerations as well as right foot ulceration secondary to peripheral neuropathy and diabetes. Patient is an uncontrolled diabetic with a blood sugar ranging from 300 mg/dL daily. Her A1c is 13%. Treatment has been with local wound care and oral antibiotics at this time. She does admit to trauma to the left proximal ulceration. Denies constitutional symptoms. No other pedal complaints at this time. Progress of Wound: Bilateral leg wounds chronic stable [facility] Medical History Smoker Anxiety Depressive disorder Pyelonephritis diabetes mellitus Diabetes mellitus Acute UTI Morbid obesity Home Medications ?Medication ?Instructions ?Recorded ?Last Taken ?Type albuterol sulfate 90 mcg/actuation 2 puff inhalation Q4H PRN PRN Sob 08/07/17 Unknown History aerosol inhaler (Ventolin HFA) &/Or Wheezing ipratropium 0.5 mg-albuterol 3 mg 3 ml inhalation Q6H.RT PRN Sob 08/07/17 Unknown History (2.5 mg base)/3 mL nebulization &/Or Wheezing soln ondansetron 4 mg disintegrating 4 mg PO Q8H PRN PRN Nausea 08/07/17 Unknown History tablet insulin glargine 100 unit/mL 20 unit SQ DAILY 01/30/18 Unknown History subcutaneous solution (Lantus U-100 Insulin) amlodipine 5 mg tablet 5 mg PO DAILY ##30 02/04/18 Unknown Rx doxycycline monohydrate 100 mg 100 mg PO BID ##20 02/04/18 Unknown Rx capsule ondansetron 4 mg disintegrating 4 mg PO TID PRN Nausea ##20 02/08/18 Unknown Rx tablet (Zofran ODT) NovoLOG Mix 70-30 U-100 Insuln 10/07/23 Unknown History Voltaren topical PRN pain 10/07/23 Unknown History atorvastatin 40 mg tablet 40 mg PO QHS 10/07/23 Unknown History bumetanide 2 mg tablet 2 mg PO TID 10/07/23 Unknown History calcium carbonate 500 mg-vitamin 1 tab PO BID 10/07/23 Unknown History D3 5 mcg (200 unit) tablet (Oyster Shell Calcium-Vitamin D3) cephalexin 250 mg capsule 250 mg PO BID 10/07/23 Unknown History cyanocobalamin (vitamin B-12) 1,000 mcg PO DAILY 10/07/23 Unknown History 1,000 mcg tablet cyclobenzaprine 5 mg tablet 5 mg PO TID PRN muscle spasm 10/07/23 Unknown History doxycycline hyclate 100 mg capsule 100 mg PO BID 10/07/23 Unknown History epinephrine 0.3 mg/0.3 mL 0.3 ml IM UD 10/07/23 Unknown History injection, auto-injector ergocalciferol (vitamin D2) 1,250 1,250 mcg PO 10/07/23 Unknown History mcg (50,000 unit) capsule famotidine 20 mg tablet 20 mg PO BID 10/07/23 Unknown History ferrous sulfate 325 mg (65 mg 325 mg PO DAILY 10/07/23 Unknown History iron) tablet (FeroSul) gabapentin 100 mg capsule 200 mg PO TID 10/07/23 Unknown History levothyroxine 25 mcg tablet 25 mcg PO DAILY 10/07/23 Unknown History metoclopramide HCl 10 mg tablet 10 mg PO TID 10/07/23 Unknown History montelukast 10 mg tablet 10 mg PO QHS 10/07/23 Unknown History nifedipine 30 mg tablet,extended 30 mg PO DAILY 10/07/23 Unknown History release 24 hr omeprazole 40 mg capsule,delayed 40 mg PO DAILY 10/07/23 Unknown History release pantoprazole 40 mg tablet,delayed 40 mg PO DAILY 10/07/23 Unknown History release quetiapine 25 mg tablet 25 mg PO QHS 10/07/23 Unknown History tirzepatide 5 mg/0.5 mL 5 mg subcut QWEEK 10/07/23 Unknown History subcutaneous pen injector (Samira) Allergy/AdvReac Type Severity Reaction Status Date / Time acetaminophen (From Tylenol) AdvReac Severe Hives Verified 10/07/23 16:12 clindamycin AdvReac Severe Hives Verified 10/07/23 16:12 Family History Father Diabetes Uncle Cancer Grandmother Diabetes Surgical History Previous section History of tubal ligation Social History Smoking Status: Current every day smoker Physical Exam Narrative Vascular: DP and PT pulses palpable. CFT brisk. No erythema or proximal streaking. Skin temperature is warm to warm with no focal increase. Nonpitting edema appreciated to the bilateral lower extremity. Neurologic: Light touch intact. Protective sensation is absent. Dermatologic: Full-thickness ulceration appreciated to the left proximal leg measuring 0.4 x 1.0 x 4.6 cm. Left plantar heel full-thickness ulceration measuring 0.5 x 0.8 x 0.1 cm. Right foot ulceration measuring 1.8 x 1.3 x 0.1 cm. All wound bases are stable. There is no evidence of probe to bone at this time bilaterally. Excisional debridement down to and including subcutaneous tissue with a #15 blade to the left plantar heel without incident. Predebridement measurement was sanguinous crust. Postdebridement measurement is 0.5 x 0.8 x 0.1 cm. Excisional debridement down to and including subcutaneous tissue with a number 3 mm dermal curette to the left medial leg ulceration. Predebridement measurement is 0.4 x 0.9 x 3.0 cm. Postdebridement measurement is 0.4 x 1.0 x 4.6 cm. Excisional debridement down to and including subcutaneous tissue with a number 3 mm dermal curette to the right foot ulceration. Predebridement measurement is 1.5 x 1.2 x 0.1 cm. Postdebridement measurement is 1.8 x 1.3 x 0.1 cm. Musculoskeletal: Mild pain to palpation to the left proximal medial ulceration. No pain with calf pressure. Debridement Note Debridement Note Debridement Free Text: Excisional debridement down to and including subcutaneous tissue with a #15 blade to the left plantar heel without incident. Predebridement measurement was sanguinous crust. Postdebridement measurement is 0.5 x 0.8 x 0.1 cm. Excisional debridement down to and including subcutaneous tissue with a number 3 mm dermal curette to the left medial leg ulceration. Predebridement measurement is 0.4 x 0.9 x 3.0 cm. Postdebridement measurement is 0.4 x 1.0 x 4.6 cm. Excisional debridement down to and including subcutaneous tissue with a number 3 mm dermal curette to the right foot ulceration. Predebridement measurement is 1.5 x 1.2 x 0.1 cm. Postdebridement measurement is 1.8 x 1.3 x 0.1 cm. Assessment/Plan Assessment/Plan (1) Non-pressure chronic ulcer of other part of right foot with fat layer exposed: CODE(S): L97.512 - Non-pressure chronic ulcer of other part of right foot with fat layer exposed PLAN: Patient was examined and evaluated. All findings were discussed with the patient. All questions were answered to the patient's satisfaction. Excisional debridement down to and including subcutaneous tissue with a #15 blade to the left plantar heel without incident. Predebridement measurement was sanguinous crust. Postdebridement measurement is 0.5 x 0.8 x 0.1 cm. Excisional debridement down to and including subcutaneous tissue with a number 3 mm dermal curette to the left medial leg ulceration. Predebridement measurement is 0.4 x 0.9 x 3.0 cm. Postdebridement measurement is 0.4 x 1.0 x 4.6 cm. Excisional debridement down to and including subcutaneous tissue with a number 3 mm dermal curette to the right foot ulceration. Predebridement measurement is 1.5 x 1.2 x 0.1 cm. Postdebridement measurement is 1.8 x 1.3 x 0.1 cm. Bilateral lower extremities were cleaned and patted dry. Culture was taken from the left proximal medial ulceration. Patient is currently on antibiotics but we will see if the patient is optimally being treated. The patient left proximal ulcer was dressed with Betadine packed gauze. Over the left heel was dressed with Betadine soaked gauze. The right foot ulceration was dressed with Betadine soaked gauze. Bilateral dry sterile dressing was applied followed by compression. The patient will be seen in 1 week for evaluation. Educated the patient to continue strict blood sugar control as she is at risk for amputation. She was understanding of this. The patient will follow-up in [address] Maguire (2) Non-pressure chronic ulcer of other part of left lower leg with fat layer exposed: CODE(S): L97.822 - Non-pressure chronic ulcer of other part of left lower leg with fat layer exposed (3) Non-pressure chronic ulcer of left heel and midfoot with fat layer exposed: CODE(S): L97.422 - Non-pressure chronic ulcer of left heel and midfoot with fat layer exposed (4) Diabetes mellitus with diabetic polyneuropathy: CODE(S): E11.42 - Type 2 diabetes mellitus with diabetic polyneuropathy
== END 2023-10-11 23:59 | disposition home or self-care (01) ==
LOC: WC 14:48
PROVIDERS: PCP Nurse Practitioner Family; Referring Provider Internal Medicine; Visit Provider Podiatrist Foot & Ankle Surgery
DX: E11.621 Type 2 diabetes mellitus with foot ulcer (principal); L97.512 Non-pressure chronic ulcer of other part of right foot with fat layer exposed; L97.422 Non-pressure chronic ulcer of left heel and midfoot with fat layer exposed; E11.42 Type 2 diabetes mellitus with diabetic polyneuropathy; Z79.4 Long term (current) use of insulin; F17.200 Nicotine dependence, unspecified, uncomplicated; Z79.85 Long-term (current) use of injectable non-insulin antidiabetic drugs; Z79.899 Other long term (current) drug therapy
CPT/HCPCS: 11042; 87070; 87075; 87077; 87205; 99214; G0463

== ENCOUNTER 2023-10-28 11:00 | Outpatient (RCR) | payer MEDICAID, SELFPAY ==
[2023-10-12 00:26] VITALS: BP 165/92; PULSE 102; RESP 24; TEMP 35.7; BMI 61.4
[2023-10-14 13:43] VITALS: BP 163/103; PULSE 88; RESP 20; TEMP 35.8; BMI 61.4
--- NOTE | 2023-10-14 15:34 | PN.PCM_ITS ---
History of Present Illness Date of Service: 10/14/23 Chief Complaint: Ulcer to right lower abdomen History of Wound: Ms. Rosenberg is a 42-year-old diabetic female presenting to wound care center today for bilateral lower extremity ulcerations. Patient was referred to the wound care center from a doctor in [place]. She does see podiatry in [place]. Patient has evidence of left proximal and heel ulcerations as well as right foot ulceration secondary to peripheral neuropathy and diabetes. Patient is an uncontrolled diabetic with a blood sugar ranging from 300 mg/dL daily. Her A1c is 13%. Treatment has been with local wound care and oral antibiotics at this time. She does admit to trauma to the left proximal ulceration. Denies constitutional symptoms. No other pedal complaints at this time. Subjective Subjective Ms. Rosenberg is a 42-year-old diabetic female presenting to wound care center today for bilateral lower extremity ulcerations. Patient has been doing dressing changes with home health care. She is taking her oral antibiotic as instructed. She admits to trying to slow down her smoking. She denies any trauma or pain to the bilateral lower extremity. Denies constitutional symptoms. No other pedal points at this time. Objective Data Objective Data Vital Signs: Vital Signs Temp Pulse Resp BP 96.5 F L 88 20 H 163/103 H 10/14/23 13:43 10/14/23 13:43 10/14/23 13:43 10/14/23 13:43 Weight: 162.502 kg Body Mass Index (BMI) 61.4 Physical Exam Narrative Vascular: DP and PT pulses palpable. CFT brisk. No erythema or proximal streaking. Skin temperature is warm to warm with no focal increase. Nonpitting edema appreciated to the bilateral lower extremity. Neurologic: Light touch intact. Protective sensation is absent. Dermatologic: Full-thickness ulceration appreciated to the left proximal leg measuring 1.2 x 0.5 x 3.8 cm. Left plantar heel full-thickness ulceration, healed. Right foot ulceration measuring 1.6 x 1.3 x 0.1 cm. All wound bases are stable. There is no evidence of probe to bone at this time bilaterally. Excisional debridement down to and including subcutaneous tissue with a number 3 mm dermal curette to the left medial leg ulceration. Predebridement measurement is 1.0 x 0.5 x 3.4 cm. Postdebridement measurement is 1.2 x 0.5 x 3.8 cm. Excisional debridement down to and including subcutaneous tissue with a number 3 mm dermal curette to the right foot ulceration. Predebridement measurement is 1.5 x 1.2 x 0.1 cm. Postdebridement measurement is 1.6 x 1.3 x 0.1 cm. Musculoskeletal: Mild pain to palpation to the left proximal medial ulceration. No pain with calf pressure. Debridement Note Debridement Note Debridement Free Text: Excisional debridement down to and including subcutaneous tissue with a number 3 mm dermal curette to the left medial leg ulceration. Predebridement measurement is 1.0 x 0.5 x 3.4 cm. Postdebridement measurement is 1.2 x 0.5 x 3.8 cm. Excisional debridement down to and including subcutaneous tissue with a number 3 mm dermal curette to the right foot ulceration. Predebridement measurement is 1.5 x 1.2 x 0.1 cm. Postdebridement measurement is 1.6 x 1.3 x 0.1 cm. 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 ) Arrival Mode Wheelchair Transfer Assistance None Patient Identification Verified (Name & Yes ) Patient Requires Transmission-Based No Precautions Finger Stick Blood Sugar(mg/dl) (if 186 indicated): Blood Sugar Stated by Patient Height and Weight Body Mass Index (BMI) 61.4 BMI Classification Obese Vital Signs Temperature (97.8 F-99.1 F) 96.5 F L Temperature Source Temporal Pulse Rate (60-100) 88 Pulse Location Monitor Respiratory Rate (12-18) 20 H Respiratory rate source Observation Blood Pressure (90/60-120/80) 163/103 H Blood Pressure Mean (mm Hg) 123 History Since Last Visit- (Skip if this is Patient's initial visit) Have you changed medications since your No last visit? Any new allergies or adverse reactions No Had a fall/change in ADL's that may No increase risk of falls Signs or symptoms of abuse and/or No neglect since last visit Have you been in the hospital since your No last visit? Has dressing in place as prescribed Yes Has compression in place as prescribed Yes Has offloadiing in place as prescribed Yes Experienced any changes in pain level or No management Pain Scale: 0-10 Numeric Is Patient Pain Free? Yes WC - Nurse 1 - General Ulcer Measurement Start: 10/14/23 13:43 Freq: Status: Active Protocol: Activity Type Activity Date Activity User E-sign Co-sign Detail Recorded Client Recorded Date Recorded By Document 10/14/23 13:43 DL [email or web address] 10/14/23 13:55 DL 10/14/23 13:43 Wound Center Nurse 1 #4 L Heel -Current Size (cm) - Length 0.1 -Current Size (cm) - Width 0.1 -Current Size (cm) - Depth 0.1 -Total Square Cm 0.01 -Exudate Amt None Present -Granulation Amt Small (1-33%) -Granulation Quality [place] -Necrosis Amt Large (67-100%) -Necrotic Tissue Type Adherent Slough -Structure Exposed N/A -Texture (Carrie-wound Skin Appearance) Callus -Moisture (Carrie-wound Skin Appearance) Dry/Scaly -Color (Carrie-wound Skin Appearance) Hemosiderin Staining -Temperature (Carrie-wound Skin No Abnormality Appearance) (Pt Warm) -Tenderness on Palpation (Carrie-wound No Skin Appearance) -Ulcer Cleansing Soap and Water -Foul Odor after Cleansing No -Anesthetic Used 5% Lidocaine Gel #5 LLE Med -Current Size (cm) - Length 0.8 -Current Size (cm) - Width 0.6 -Current Size (cm) - Depth 3.2 -Total Square Cm 0.48 -Exudate Amt Medium -Exudate Type Serosanguineous -Wound Margin Distinct, Outline Attached -Granulation Amt Large (67-100%) -Granulation Quality Red -Necrosis Amt Small (1-33%) -Necrotic Tissue Type Adherent Slough -Structure Exposed N/A -Texture (Carrie-wound Skin Appearance) Scarring -Moisture (Carrie-wound Skin Appearance) Dry/Scaly -Color (Carrie-wound Skin Appearance) Hemosiderin Staining -Temperature (Carrie-wound Skin No Abnormality Appearance) (Pt Warm) -Ulcer Cleansing Soap and Water -Anesthetic Used 5% Lidocaine Gel,Cetacaine #3 R Med Foot -Current Size (cm) - Length 1.7 -Current Size (cm) - Width 1.4 -Current Size (cm) - Depth 0.1 -Total Square Cm 2.38 -Exudate Amt Medium -Exudate Type Serosanguineous -Wound Margin Distinct, Outline Attached -Granulation Amt Medium (34-66%) -Granulation Quality [place] -Necrosis Amt Medium (34-66%) -Necrotic Tissue Type Adherent Slough -Texture (Carrie-wound Skin Appearance) Scarring -Moisture (Carrie-wound Skin Appearance) No Abnormality -Color (Carrie-wound Skin Appearance) Hemosiderin Staining -Temperature (Carrie-wound Skin No Abnormality Appearance) (Pt Warm) -Tenderness on Palpation (Carrie-wound No Skin Appearance) -Anesthetic Used 5% Lidocaine Gel Right Calf (cm) 56 Right Ankle (cm) 31.5 Left Calf (cm) 57 Left Ankle (cm) 32.1 WC - Nurse 2 - General Ulcer CM Notes Start: 10/14/23 13:43 Freq: Status: Active Protocol: Activity Type Activity Date Activity User E-sign Co-sign Detail Recorded Client Recorded Date Recorded By Document 10/14/23 14:12 0000 10/14/23 14:16 10/14/23 14:12 Wound Center Nurse 2 #4 L Heel -Correct Patient No -Correct Side, Site, Position No -Correct Procedure No -Procedure Performed No -Post Debridement (cm) - Length 0 -Post Debridement (cm) - Width 0 -Post Debridement (cm) - Depth 0 -Total Square (Post) (cm) 0 -Area of Debridement (cm) - Length 0 -Area of Debridement (cm) - Width 0 -Total Square (Area) (cm) 0 -Wound/Ulcer Outcome Healed- Epithelialized #5 LLE Med -Time 14:12 -Correct Patient Yes -Correct Side, Site, Position Yes -Correct Procedure Yes -Procedure Performed Yes -Type of Procedure Debridement -Clinical Debridement Subcutaneous -Tissue Removed Subcutaneous -Post Debridement (cm) - Length 1.2 -Post Debridement (cm) - Width 0.5 -Post Debridement (cm) - Depth 3.8 -Total Square (Post) (cm) 0.60 -Area of Debridement (cm) - Length 1.2 -Area of Debridement (cm) - Width 0.5 -Total Square (Area) (cm) 0.60 -Tunneling No -Undermining/Tunneling No -Circular Undermining No -Wound/Ulcer Outcome Not Healed -Ulcer Cleansing Rinsed/ Irrigated with Saline -Bioengineered Tissue No -Bleeding Controlled with Pressure -Treatment Response Procedure Tolerated Well -Offloading No -Debridement - Subq, 1st 20sq cm No #3 R Med Foot -Time 14:13 -Correct Patient Yes -Correct Side, Site, Position Yes -Correct Procedure Yes -Procedure Performed Yes -Type of Procedure Debridement -Clinical Debridement Subcutaneous -Tissue Removed Subcutaneous -Post Debridement (cm) - Length 1.6 -Post Debridement (cm) - Width 1.3 -Post Debridement (cm) - Depth 0.1 -Total Square (Post) (cm) 2.08 -Area of Debridement (cm) - Length 1.6 -Area of Debridement (cm) - Width 1.3 -Total Square (Area) (cm) 2.08 -Tunneling No -Undermining/Tunneling No -Circular Undermining No -Wound/Ulcer Outcome Not Healed -Ulcer Cleansing Rinsed/ Irrigated with Saline -Foul Odor after Cleansing No -Bioengineered Tissue No -Bleeding Controlled with Pressure -Treatment Response Procedure Tolerated Well -Offloading No -Debridement - Subq, 1st 20sq cm Yes Pain Scale: 0-10 Numeric Is Patient Pain Free? Yes WC - Nurse 3 - General Ulcer D/C NN Start: 10/14/23 13:43 Freq: Status: Active Protocol: Activity Type Activity Date Activity User E-sign Co-sign Detail Recorded Client Recorded Date Recorded By Document 10/14/23 14:24 DL [email or web address] 10/14/23 14:26 DL 10/14/23 14:24 Wound Care Center Nurse 3 #5 LLE Med -Ulcer Cleansing Rinsed/ Irrigated with Saline -Foul Odor after Cleansing No -Other Dressing betadine packing -Primary Dressing Covered/Secured with Dry Gauze & Roll Gauze, Secured with Tape #3 R Med Foot -Ulcer Cleansing Rinsed/ Irrigated with Saline -Foul Odor after Cleansing No -Other Dressing betadine -Primary Dressing Covered/Secured with Dry Gauze & Roll Gauze, Secured with Tape Right -Tubular Bandage Single Layer -Size of Tubigrip Used Size F -Size F ($) 1 Left -Tubular Bandage Single Layer -Size of Tubigrip Used Size F -Size F ($) 1 Treatment Response Procedure Tolerated Well Pain Scale: 0-10 Numeric Is Patient Pain Free? Yes WC - Visit Discharge Discharge Condition Stable Ambulatory Status Ambulatory Transportation [facility] Facility Type Home Health Orders Sent Yes Assessment/Plan Assessment/Plan (1) Non-pressure chronic ulcer of other part of left lower leg with fat layer exposed: CODE(S): L97.822 - Non-pressure chronic ulcer of other part of left lower leg with fat layer exposed PLAN: Patient was examined and evaluated. All findings were discussed with the patient. All questions were answered to the patient's satisfaction. Excisional debridement down to and including subcutaneous tissue with a number 3 mm dermal curette to the left medial leg ulceration. Predebridement measurement is 1.0 x 0.5 x 3.4 cm. Postdebridement measurement is 1.2 x 0.5 x 3.8 cm. Excisional debridement down to and including subcutaneous tissue with a number 3 mm dermal curette to the right foot ulceration. Predebridement measurement is 1.5 x 1.2 x 0.1 cm. Postdebridement measurement is 1.6 x 1.3 x 0.1 cm. Patient to continue to take her oral antibiotic as written, doxycycline Keflex. She will continue to dressing changes per home health care. Encourage smoking cessation. As well as can encouraged strict blood sugar control. Follow-up at the wound care center with Dr. Maguire in 1 week. (2) Non-pressure chronic ulcer of other part of right foot with fat layer exposed: CODE(S): L97.512 - Non-pressure chronic ulcer of other part of right foot with fat layer exposed (3) Diabetes mellitus with diabetic polyneuropathy: CODE(S): E11.42 - Type 2 diabetes mellitus with diabetic polyneuropathy
[2023-10-21 10:24] VITALS: BP 127/82; PULSE 105; RESP 18; TEMP 35.5; BMI 61.4
--- NOTE | 2023-10-21 12:20 | PN.PCM_ITS ---
History of Present Illness Date of Service: 10/21/23 Chief Complaint: Ulcer to right lower abdomen History of Wound: Ms. Rosenberg is a 42-year-old diabetic female presenting to wound care center today for bilateral lower extremity ulcerations. Patient was referred to the wound care center from a doctor in [place]. She does see podiatry in [place]. Patient has evidence of left proximal and heel ulcerations as well as right foot ulceration secondary to peripheral neuropathy and diabetes. Patient is an uncontrolled diabetic with a blood sugar ranging from 300 mg/dL daily. Her A1c is 13%. Treatment has been with local wound care and oral antibiotics at this time. She does admit to trauma to the left proximal ulceration. Denies constitutional symptoms. No other pedal complaints at this time. Subjective Subjective Ms. Rosenberg is a 42-year-old diabetic female presenting to wound care center today for bilateral lower extremity ulcerations. Patient has been doing dressing changes with home health care. She is taking her oral antibiotic as instructed. She admits to trying to slow down her smoking. She denies any trauma or pain to the bilateral lower extremity. Denies constitutional symptoms. No other pedal points at this time. Objective Data Objective Data Vital Signs: Vital Signs Temp Pulse Resp BP O2 Del Method 96 F L 105 H 18 127/82 H Room Air 10/21/23 10:24 10/21/23 10:24 10/21/23 10:24 10/21/23 10:24 10/21/23 10:24 Oxygen Delivery Method Room Air Weight: 162.502 kg Body Mass Index (BMI) 61.4 Physical Exam Narrative Vascular: DP and PT pulses palpable. CFT brisk. No erythema or proximal streaking. Skin temperature is warm to warm with no focal increase. Nonpitting edema appreciated to the bilateral lower extremity. Neurologic: Light touch intact. Protective sensation is absent. Dermatologic: Full-thickness ulceration appreciated to the left proximal leg measuring 0.5 x 0.5 x 3.8 cm. Some fibrotic changes appreciated. No malodor. No probe to bone. Right foot ulceration measuring 1.5 x 0.8 x 0.1 cm. Wound base is 100% granular nature. Excisional debridement down to and including subcutaneous tissue with a number 3 mm dermal curette to the left medial leg ulceration. Predebridement measurement is 0.4 x 0.4 x 3.6 cm. Postdebridement measurement is 0.5 x 0.5 x 3.8 cm. Excisional debridement down to and including subcutaneous tissue with a number 3 mm dermal curette to the right foot ulceration. Predebridement measurement is 1.3 x 0.6 x 0.1 cm. Postdebridement measurement is 1.5 x 0.8 x 0.1 cm. Musculoskeletal: Mild pain to palpation to the left proximal medial ulceration. No pain with calf pressure. Debridement Note Debridement Note Debridement Free Text: Excisional debridement down to and including subcutaneous tissue with a number 3 mm dermal curette to the left medial leg ulceration. Predebridement measurement is 0.4 x 0.4 x 3.6 cm. Postdebridement measurement is 0.5 x 0.5 x 3.8 cm. Excisional debridement down to and including subcutaneous tissue with a number 3 mm dermal curette to the right foot ulceration. Predebridement measurement is 1.3 x 0.6 x 0.1 cm. Postdebridement measurement is 1.5 x 0.8 x 0.1 cm. Post-Debridement Measurements and Additional Note: Post-Debridement Measurements/Treatment - Nurse 1 - General Ulcer Assessment Start: 10/14/23 13:43 Freq: Status: Active Protocol: AIME Activity Type Activity Date Activity User E-sign Co-sign Detail Recorded Client Recorded Date Recorded By Document 10/14/23 13:43 DL [email or web address] 10/14/23 13:55 DL Document 10/21/23 10:24 [facility] 10/21/23 10:27 GM 10/14/23 10/21/23 13:43 10:24 - Today's Visit Information Type of service Follow-up Visit Follow-up Visit (Physician/TRANSPORTATION ANALYST (Physician/TRANSPORTATION ANALYST ) ) Arrival Mode Wheelchair Wheelchair Transfer Assistance None None Accompanied by son Patient Identification Verified (Name & Yes Yes ) Patient Requires Transmission-Based No Precautions Finger Stick Blood Sugar(mg/dl) (if 186 indicated): Blood Sugar Stated by Patient Height and Weight Body Mass Index (BMI) 61.4 61.4 BMI Classification Obese Obese Vital Signs Temperature (97.8 F-99.1 F) 96.5 F L 96 F L Temperature Source Temporal Temporal Pulse Rate (60-100) 88 105 H Pulse Location Monitor Monitor Respiratory Rate (12-18) 20 H 18 Respiratory rate source Observation Observation Oxygen Delivery Method Room Air Blood Pressure (90/60-120/80) 163/103 H 127/82 H Blood Pressure Mean (mm Hg) 123 97 Source Monitor Position Semi-Fowlers Blood Pressure Location Left Arm History Since Last Visit- (Skip if this is Patient's initial visit) Have you changed medications since your No No last visit? Any new allergies or adverse reactions No No Had a fall/change in ADL's that may No No increase risk of falls Signs or symptoms of abuse and/or No No neglect since last visit Have you been in the hospital since your No No last visit? Has dressing in place as prescribed Yes Yes Has compression in place as prescribed Yes Yes Has offloadiing in place as prescribed Yes N/A Experienced any changes in pain level or No No management Pain Scale: 0-10 Numeric Is Patient Pain Free? Yes Yes WC - Nurse 1 - General Ulcer Measurement Start: 10/14/23 13:43 Freq: Status: Active Protocol: Activity Type Activity Date Activity User E-sign Co-sign Detail Recorded Client Recorded Date Recorded By Document 10/14/23 13:43 DL [email or web address] 10/14/23 13:55 DL Document 10/21/23 10:24 GM 10/21/23 10:27 GM 10/14/23 10/21/23 13:43 10:24 Wound Center Nurse 1 #4 L Heel -Current Size (cm) - Length 0.1 -Current Size (cm) - Width 0.1 -Current Size (cm) - Depth 0.1 -Total Square Cm 0.01 -Exudate Amt None Present -Granulation Amt Small (1-33%) -Granulation Quality [place] -Necrosis Amt Large (67-100%) -Necrotic Tissue Type Adherent Slough -Structure Exposed N/A -Texture (Carrie-wound Skin Appearance) Callus -Moisture (Carrie-wound Skin Appearance) Dry/Scaly -Color (Carrie-wound Skin Appearance) Hemosiderin Staining -Temperature (Carrie-wound Skin No Abnormality Appearance) (Pt Warm) -Tenderness on Palpation (Carrie-wound No Skin Appearance) -Ulcer Cleansing Soap and Water -Foul Odor after Cleansing No -Anesthetic Used 5% Lidocaine Gel #5 LLE Med -Current Size (cm) - Length 0.8 0.3 -Current Size (cm) - Width 0.6 0.5 -Current Size (cm) - Depth 3.2 1.7 -Total Square Cm 0.48 0.15 -Photo Taken No -Epithelialization None Present -Tunneling No -Undermining/Tunneling No -Circular Undermining No -Exudate Amt Medium Large -Exudate Type Serosanguineous Purulent -Wound Margin Distinct, Distinct, Outline Outline Attached Attached -Granulation Amt Large (67-100%) Small (1-33%) -Granulation Quality Red [place] -Necrosis Amt Small (1-33%) -Necrotic Tissue Type Adherent Slough -Structure Exposed N/A -Texture (Carrie-wound Skin Appearance) Scarring Assessed -Moisture (Carrie-wound Skin Appearance) Dry/Scaly Assessed -Color (Carrie-wound Skin Appearance) Hemosiderin Not Assessed Staining -Temperature (Carrie-wound Skin No Abnormality No Abnormality Appearance) (Pt Warm) (Pt Warm) -Tenderness on Palpation (Carrie-wound No Skin Appearance) -Ulcer Cleansing Soap and Water Soap and Water -Foul Odor after Cleansing No -Anesthetic Used 5% Lidocaine 5% Lidocaine Gel,Cetacaine Gel #3 R Med Foot -Current Size (cm) - Length 1.7 1.5 -Current Size (cm) - Width 1.4 0.6 -Current Size (cm) - Depth 0.1 0.1 -Total Square Cm 2.38 0.90 -Photo Taken No -Epithelialization None Present -Tunneling No -Undermining/Tunneling No -Circular Undermining No -Exudate Amt Medium Small -Exudate Type Serosanguineous -Wound Margin Distinct, Distinct, Outline Outline Attached Attached -Granulation Amt Medium (34-66%) Medium (34-66%) -Granulation Quality [place] Red -Slough/Fibrin No -Necrosis Amt Medium (34-66%) -Necrotic Tissue Type Adherent Slough -Texture (Carrie-wound Skin Appearance) Scarring Assessed -Moisture (Carrie-wound Skin Appearance) No Abnormality Assessed -Color (Carrie-wound Skin Appearance) Hemosiderin Assessed Staining -Temperature (Carrie-wound Skin No Abnormality No Abnormality Appearance) (Pt Warm) (Pt Warm) -Tenderness on Palpation (Carrie-wound No No Skin Appearance) -Ulcer Cleansing Soap and Water -Foul Odor after Cleansing No -Anesthetic Used 5% Lidocaine 5% Lidocaine Gel Gel Right Calf (cm) 56 57 Right Ankle (cm) 31.5 33.5 Left Calf (cm) 57 57.5 Left Ankle (cm) 32.1 35 - Nurse 2 - General Ulcer CM Notes Start: 10/14/23 13:43 Freq: Status: Active Protocol: Activity Type Activity Date Activity User E-sign Co-sign Detail Recorded Client Recorded Date Recorded By Document 10/14/23 14:12 0000 10/14/23 14:16 Document 10/21/23 10:33 JF 000 10/21/23 10:40 JF 10/14/23 10/21/23 14:12 10:33 Wound Center Nurse 2 #4 L Heel -Correct Patient No -Correct Side, Site, Position No -Correct Procedure No -Procedure Performed No -Post Debridement (cm) - Length 0 -Post Debridement (cm) - Width 0 -Post Debridement (cm) - Depth 0 -Total Square (Post) (cm) 0 -Area of Debridement (cm) - Length 0 -Area of Debridement (cm) - Width 0 -Total Square (Area) (cm) 0 -Wound/Ulcer Outcome Healed- Epithelialized #5 LLE Med -Time 14:12 10:33 -Correct Patient Yes Yes -Correct Side, Site, Position Yes Yes -Correct Procedure Yes Yes -Procedure Performed Yes Yes -Type of Procedure Debridement Debridement -Clinical Debridement Subcutaneous Subcutaneous -Tissue Removed Subcutaneous Subcutaneous -Post Debridement (cm) - Length 1.2 0.5 -Post Debridement (cm) - Width 0.5 0.5 -Post Debridement (cm) - Depth 3.8 3.8 -Total Square (Post) (cm) 0.60 0.25 -Area of Debridement (cm) - Length 1.2 0.5 -Area of Debridement (cm) - Width 0.5 0.5 -Total Square (Area) (cm) 0.60 0.25 -Tunneling No No -Undermining/Tunneling No No -Circular Undermining No No -Wound/Ulcer Outcome Not Healed Not Healed -Ulcer Cleansing Rinsed/ Rinsed/ Irrigated with Irrigated with Saline Saline -Foul Odor after Cleansing No -Bioengineered Tissue No No -Bleeding Controlled with Pressure Pressure -Treatment Response Procedure Procedure Tolerated Well Tolerated Well -Offloading No No -Debridement - Subq, 1st 20sq cm No Yes #3 R Med Foot -Time 14:13 10:35 -Correct Patient Yes Yes -Correct Side, Site, Position Yes Yes -Correct Procedure Yes Yes -Procedure Performed Yes Yes -Type of Procedure Debridement Debridement -Clinical Debridement Subcutaneous Subcutaneous -Tissue Removed Subcutaneous Subcutaneous -Post Debridement (cm) - Length 1.6 1.5 -Post Debridement (cm) - Width 1.3 0.8 -Post Debridement (cm) - Depth 0.1 0.1 -Total Square (Post) (cm) 2.08 1.20 -Area of Debridement (cm) - Length 1.6 1.5 -Area of Debridement (cm) - Width 1.3 0.8 -Total Square (Area) (cm) 2.08 1.20 -Tunneling No No -Undermining/Tunneling No No -Circular Undermining No No -Wound/Ulcer Outcome Not Healed Not Healed -Ulcer Cleansing Rinsed/ Rinsed/ Irrigated with Irrigated with Saline Saline -Foul Odor after Cleansing No No -Bioengineered Tissue No No -Bleeding Controlled with Pressure Pressure -Treatment Response Procedure Procedure Tolerated Well Tolerated Well -Offloading No No -Debridement - Subq, 1st 20sq cm Yes No Pain Scale: 0-10 Numeric Is Patient Pain Free? Yes Yes WC - Nurse 3 - General Ulcer D/C NN Start: 10/14/23 13:43 Freq: Status: Active Protocol: Activity Type Activity Date Activity User E-sign Co-sign Detail Recorded Client Recorded Date Recorded By Document 10/14/23 14:24 DL [email or web address] 10/14/23 14:26 DL Document 10/21/23 10:52 KW ; 10/21/23 10:54 KW 10/14/23 10/21/23 14:24 10:52 Wound Care Center Nurse 3 #5 LLE Med -Ulcer Cleansing Rinsed/ Irrigated with Saline -Foul Odor after Cleansing No -Primary Dressing Applied Optilok 8x12, Silvercel -Other Dressing betadine packing -Primary Dressing Covered/Secured with Dry Gauze & Dry Gauze & Roll Gauze, Roll Gauze, Secured with Secured with Tape Tape -Optilok 8x12 1 -Silvercel 1 #3 R Med Foot -Ulcer Cleansing Rinsed/ Irrigated with Saline -Foul Odor after Cleansing No -Primary Dressing Applied Promogran Valerie Matter -Other Dressing betadine -Primary Dressing Covered/Secured with Dry Gauze & Dry Gauze & Roll Gauze, Roll Gauze, Secured with Secured with Tape Tape -Promogran Valerie Matter 1 BLE -Multi-Layered Wrap Application Multi-Layer Comp - Bilat ($ ) Right -Tubular Bandage Single Layer -Size of Tubigrip Used Size F -Size F ($) 1 Left -Tubular Bandage Single Layer -Size of Tubigrip Used Size F -Size F ($) 1 Treatment Response Procedure Tolerated Well Pain Scale: 0-10 Numeric Is Patient Pain Free? Yes Yes WC - Visit Discharge Discharge Condition Stable Stable Ambulatory Status Ambulatory Wheelchair Transportation Private Auto Private Auto Medication Reconcilliation completed & No provided to patient/care provider Clinical Summary of Care Provided Yes Facility Type Home Health Orders Sent Yes Assessment/Plan Assessment/Plan (1) Non-pressure chronic ulcer of other part of left lower leg with fat layer exposed: CODE(S): L97.822 - Non-pressure chronic ulcer of other part of left lower leg with fat layer exposed PLAN: Patient was examined and evaluated. All findings were discussed with the patient. All questions were answered to the patient's satisfaction. Excisional debridement down to and including subcutaneous tissue with a number 3 mm dermal curette to the left medial leg ulceration. Predebridement measurement is 0.4 x 0.4 x 3.6 cm. Postdebridement measurement is 0.5 x 0.5 x 3.8 cm. Excisional debridement down to and including subcutaneous tissue with a number 3 mm dermal curette to the right foot ulceration. Predebridement measurement is 1.3 x 0.6 x 0.1 cm. Postdebridement measurement is 1.5 x 0.8 x 0.1 cm. The right foot ulcer was wiped clean and patted dry. The area was dressed with moist Valerie dry sterile dressing and 3M wrap. The left lower extremity were cleaned and patted dry. A piece of silver alginate followed by border foam was applied to the ulceration followed by 3M compression wrap. Patient was instructed leave the wraps clean dry and intact. If she needs to she can follow-up at the wound care center for a dressing change on Thursday versus Thursday due to car availability. Follow-up at the wound care center with Dr. Maguire in 1 week. (2) Non-pressure chronic ulcer of other part of right foot with fat layer exposed: CODE(S): L97.512 - Non-pressure chronic ulcer of other part of right foot with fat layer exposed (3) Diabetes mellitus with diabetic polyneuropathy: CODE(S): E11.42 - Type 2 diabetes mellitus with diabetic polyneuropathy
[2023-10-28 11:16] VITALS: BP 152/78; PULSE 93; RESP 18; TEMP 35.7; BMI 61.4
--- NOTE | 2023-10-28 12:28 | PCM.WC.PN ---
History of Present Illness Date of Service: 10/28/23 Chief Complaint: Ulcer to right lower abdomen History of Wound: Ms. Rosenberg is a 42-year-old diabetic female presenting to wound care center today for bilateral lower extremity ulcerations. Patient was referred to the wound care center from a doctor in [place]. She does see podiatry in [place]. Patient has evidence of left proximal and heel ulcerations as well as right foot ulceration secondary to peripheral neuropathy and diabetes. Patient is an uncontrolled diabetic with a blood sugar ranging from 300 mg/dL daily. Her A1c is 13%. Treatment has been with local wound care and oral antibiotics at this time. She does admit to trauma to the left proximal ulceration. Denies constitutional symptoms. No other pedal complaints at this time. Subjective Subjective Ms. Rosenberg is a 42-year-old diabetic female presenting to wound care center today for bilateral lower extremity ulcerations. Patient has been doing dressing changes with home health care. Patient states that she is getting a new home health care nurse to the house as they feel the dressing changes are not adequate. She has completed her oral antibiotics. She admits to trying to slow down her smoking. She denies any trauma or pain to the bilateral lower extremity. Denies constitutional symptoms. No other pedal points at this time. Objective Data Objective Data Vital Signs: Vital Signs Temp Pulse Resp BP O2 Del Method 96.3 F L 93 18 152/78 H Room Air 10/28/23 11:16 10/28/23 11:16 10/28/23 11:16 10/28/23 11:16 10/28/23 11:16 Oxygen Delivery Method Room Air Weight: 162.502 kg Body Mass Index (BMI) 61.4 Physical Exam Narrative Vascular: DP and PT pulses palpable. CFT brisk. No erythema or proximal streaking. Skin temperature is warm to warm with no focal increase. Nonpitting edema appreciated to the bilateral lower extremity. Neurologic: Light touch intact. Protective sensation is absent. Dermatologic: Full-thickness ulceration appreciated to the left proximal leg measuring 0.2 x 0.3 x 4.0 cm. Some fibrotic discharged appreciated. No malodor. No probe to bone. Right foot ulceration measuring 1.5 x 0.6 x 0.1 cm. Wound base is 100% granular nature. Excisional debridement down to and including subcutaneous tissue with a number 3 mm dermal curette to the left medial leg ulceration. Predebridement measurement is 0.1 x 0.2 x 3.0 cm. Postdebridement measurement is 0.2 x 0.3 x 4.0 cm. Excisional debridement down to and including subcutaneous tissue with a number 3 mm dermal curette to the right foot ulceration. Predebridement measurement is 1.3 x 0.5 x 0.1 cm. Postdebridement measurement is 1.5 x 0.6 x 0.1 cm. Musculoskeletal: Mild pain to palpation to the left proximal medial ulceration. No pain with calf pressure. Debridement Note Debridement Note Debridement Free Text: Excisional debridement down to and including subcutaneous tissue with a number 3 mm dermal curette to the left medial leg ulceration. Predebridement measurement is 0.1 x 0.2 x 3.0 cm. Postdebridement measurement is 0.2 x 0.3 x 4.0 cm. Excisional debridement down to and including subcutaneous tissue with a number 3 mm dermal curette to the right foot ulceration. Predebridement measurement is 1.3 x 0.5 x 0.1 cm. Postdebridement measurement is 1.5 x 0.6 x 0.1 cm. Post-Debridement Measurements and Additional Note: Post-Debridement Measurements/Treatment - Nurse 1 - General Ulcer Assessment Start: 10/14/23 13:43 Freq: Status: Active Protocol: AIME Activity Type Activity Date Activity User E-sign Co-sign Detail Recorded Client Recorded Date Recorded By Document 10/14/23 13:43 DL [email or web address] 10/14/23 13:55 DL Document 10/21/23 10:24 [facility] 10/21/23 10:27 Document 10/28/23 11:16 KW ' 10/28/23 11:29 KW 10/14/23 10/21/23 10/28/23 13:43 10:24 11:16 - Today's Visit Information Type of service Follow-up Visit Follow-up Visit Follow-up Visit (Physician/WOOD CARVING MACHINE OPERATOR (Physician/WOOD CARVING MACHINE OPERATOR (Physician/WOOD CARVING MACHINE OPERATOR ) ) ) Arrival Mode Wheelchair Wheelchair Wheelchair Transfer Assistance None None Accompanied by son SUE- BOYFRIEND Patient Identification Verified (Name & Yes Yes Yes ) Patient Requires Transmission-Based No Precautions Finger Stick Blood Sugar(mg/dl) (if 186 indicated): Blood Sugar Stated by Patient Height and Weight Body Mass Index (BMI) 61.4 61.4 61.4 BMI Classification Obese Obese Obese Vital Signs Temperature (97.8 F-99.1 F) 96.5 F L 96 F L 96.3 F L Temperature Source Temporal Temporal Temporal Pulse Rate (60-100) 88 105 H 93 Pulse Location Monitor Monitor Monitor Respiratory Rate (12-18) 20 H 18 18 Respiratory rate source Observation Observation Observation Oxygen Delivery Method Room Air Room Air Blood Pressure (90/60-120/80) 163/103 H 127/82 H 152/78 H Blood Pressure Mean (mm Hg) 123 97 102 Source Monitor Monitor Position Semi-Fowlers Semi-Fowlers Blood Pressure Location Left Arm Right Forearm History Since Last Visit- (Skip if this is Patient's initial visit) Have you changed medications since your No No No last visit? Any new allergies or adverse reactions No No No Had a fall/change in ADL's that may No No No increase risk of falls Signs or symptoms of abuse and/or No No No neglect since last visit Have you been in the hospital since your No No No last visit? Has dressing in place as prescribed Yes Yes Yes Has compression in place as prescribed Yes Yes Yes Has offloadiing in place as prescribed Yes N/A N/A Experienced any changes in pain level or No No No management Left Footwear Regular Shoe Right Footwear No Footwear Pain Scale: 0-10 Numeric Is Patient Pain Free? Yes Yes Yes WC - Nurse 1 - General Ulcer Measurement Start: 10/14/23 13:43 Freq: Status: Active Protocol: Activity Type Activity Date Activity User E-sign Co-sign Detail Recorded Client Recorded Date Recorded By Document 10/14/23 13:43 DL [email or web address] 10/14/23 13:55 DL Document 10/21/23 10:24 GM wc 10/21/23 10:27 GM Document 10/28/23 11:16 KW ' 10/28/23 11:29 KW 10/14/23 10/21/23 10/28/23 13:43 10:24 11:16 Wound Center Nurse 1 #4 L Heel -Current Size (cm) - Length 0.1 -Current Size (cm) - Width 0.1 -Current Size (cm) - Depth 0.1 -Total Square Cm 0.01 -Exudate Amt None Present -Granulation Amt Small (1-33%) -Granulation Quality [place] -Necrosis Amt Large (67-100%) -Necrotic Tissue Type Adherent Slough -Structure Exposed N/A -Texture (Carrie-wound Skin Appearance) Callus -Moisture (Carrie-wound Skin Appearance) Dry/Scaly -Color (Carrie-wound Skin Appearance) Hemosiderin Staining -Temperature (Carrie-wound Skin No Abnormality Appearance) (Pt Warm) -Tenderness on Palpation (Carrie-wound No Skin Appearance) -Ulcer Cleansing Soap and Water -Foul Odor after Cleansing No -Anesthetic Used 5% Lidocaine Gel #5 LLE Med -Current Size (cm) - Length 0.8 0.3 0.1 -Current Size (cm) - Width 0.6 0.5 0.1 -Current Size (cm) - Depth 3.2 1.7 0.1 -Total Square Cm 0.48 0.15 0.01 -Photo Taken No -Epithelialization None Present -Tunneling No -Undermining/Tunneling No -Circular Undermining No -Exudate Amt Medium Large Small -Exudate Type Serosanguineous Purulent Serosanguineous -Wound Margin Distinct, Distinct, Distinct, Outline Outline Outline Attached Attached Attached -Granulation Amt Large (67-100%) Small (1-33%) None Present (0 %) -Granulation Quality Red [place] Red -Necrosis Amt Small (1-33%) -Necrotic Tissue Type Adherent Slough -Structure Exposed N/A -Texture (Carrie-wound Skin Appearance) Scarring Assessed Assessed -Moisture (Carrie-wound Skin Appearance) Dry/Scaly Assessed Assessed -Color (Carrie-wound Skin Appearance) Hemosiderin Not Assessed Assessed Staining -Temperature (Carrie-wound Skin No Abnormality No Abnormality No Abnormality Appearance) (Pt Warm) (Pt Warm) (Pt Warm) -Tenderness on Palpation (Carrie-wound No No Skin Appearance) -Ulcer Cleansing Soap and Water Soap and Water Soap and Water -Foul Odor after Cleansing No No -Anesthetic Used 5% Lidocaine 5% Lidocaine 5% Lidocaine Gel,Cetacaine Gel Gel #3 R Med Foot -Current Size (cm) - Length 1.7 1.5 1.3 -Current Size (cm) - Width 1.4 0.6 1 -Current Size (cm) - Depth 0.1 0.1 0.1 -Total Square Cm 2.38 0.90 1.3 -Photo Taken No -Epithelialization None Present -Tunneling No -Undermining/Tunneling No -Circular Undermining No -Exudate Amt Medium Small Small -Exudate Type Serosanguineous Serosanguineous -Wound Margin Distinct, Distinct, Distinct, Outline Outline Outline Attached Attached Attached -Granulation Amt Medium (34-66%) Medium (34-66%) Large (67-100%) -Granulation Quality [place] Red Red -Slough/Fibrin No -Necrosis Amt Medium (34-66%) Small (1-33%) -Necrotic Tissue Type Adherent Slough Adherent Slough -Texture (Carrie-wound Skin Appearance) Scarring Assessed Assessed,Callus -Moisture (Carrie-wound Skin Appearance) No Abnormality Assessed Assessed,Dry/ Scaly -Color (Carrie-wound Skin Appearance) Hemosiderin Assessed Assessed Staining -Temperature (Carrie-wound Skin No Abnormality No Abnormality No Abnormality Appearance) (Pt Warm) (Pt Warm) (Pt Warm) -Tenderness on Palpation (Carrie-wound No No Skin Appearance) -Ulcer Cleansing Soap and Water Soap and Water -Foul Odor after Cleansing No No -Anesthetic Used 5% Lidocaine 5% Lidocaine 5% Lidocaine Gel Gel Gel Right Calf (cm) 56 57 54 Right Ankle (cm) 31.5 33.5 30.5 Left Calf (cm) 57 57.5 58 Left Ankle (cm) 32.1 35 34 - Nurse 2 - General Ulcer CM Notes Start: 10/14/23 13:43 Freq: Status: Active Protocol: Activity Type Activity Date Activity User E-sign Co-sign Detail Recorded Client Recorded Date Recorded By Document 10/14/23 14:12 0000 10/14/23 14:16 Document 10/21/23 10:33 JF 000 10/21/23 10:40 Document 10/28/23 11:36 GM 10/28/23 11:40 GM Edit Result 10/28/23 11:36 GM (1) 10/28/23 11:44 GM (1) #3 R Med Foot - Post Debridement (cm) - Length => 1.5 - Post Debridement (cm) - Width => 0.6 - Post Debridement (cm) - Depth => 0.1 - Total Square (Post) (cm) => 0.90 - Area of Debridement (cm) - Length => 1.5 - Area of Debridement (cm) - Width => 0.6 - Total Square (Area) (cm) => 0.90 10/14/23 10/21/23 10/28/23 14:12 10:33 11:36 Wound Center Nurse 2 #4 L Heel -Correct Patient No -Correct Side, Site, Position No -Correct Procedure No -Procedure Performed No -Post Debridement (cm) - Length 0 -Post Debridement (cm) - Width 0 -Post Debridement (cm) - Depth 0 -Total Square (Post) (cm) 0 -Area of Debridement (cm) - Length 0 -Area of Debridement (cm) - Width 0 -Total Square (Area) (cm) 0 -Wound/Ulcer Outcome Healed- Epithelialized #5 LLE Med -Time 14:12 10:33 11:37 -Correct Patient Yes Yes Yes -Correct Side, Site, Position Yes Yes Yes -Correct Procedure Yes Yes Yes -Procedure Performed Yes Yes Yes -Type of Procedure Debridement Debridement Debridement -Clinical Debridement Subcutaneous Subcutaneous Subcutaneous -Tissue Removed Subcutaneous Subcutaneous Subcutaneous -Post Debridement (cm) - Length 1.2 0.5 0.2 -Post Debridement (cm) - Width 0.5 0.5 0.3 -Post Debridement (cm) - Depth 3.8 3.8 4.0 -Total Square (Post) (cm) 0.60 0.25 0.06 -Area of Debridement (cm) - Length 1.2 0.5 0.2 -Area of Debridement (cm) - Width 0.5 0.5 0.3 -Total Square (Area) (cm) 0.60 0.25 0.06 -Tunneling No No No -Undermining/Tunneling No No No -Circular Undermining No No No -Wound/Ulcer Outcome Not Healed Not Healed Not Healed -Ulcer Cleansing Rinsed/ Rinsed/ Irrigated with Irrigated with Saline Saline -Foul Odor after Cleansing No -Bioengineered Tissue No No -Bleeding Controlled with Pressure Pressure Pressure -Treatment Response Procedure Procedure Procedure Tolerated Well Tolerated Well Tolerated Well -Offloading No No -Debridement - Subq, 1st 20sq cm No Yes Yes #3 R Med Foot -Time 14:13 10:35 11:37 -Correct Patient Yes Yes Yes -Correct Side, Site, Position Yes Yes Yes -Correct Procedure Yes Yes Yes -Procedure Performed Yes Yes Yes -Type of Procedure Debridement Debridement Debridement -Clinical Debridement Subcutaneous Subcutaneous Subcutaneous -Tissue Removed Subcutaneous Subcutaneous Subcutaneous -Post Debridement (cm) - Length 1.6 1.5 1.5 -Post Debridement (cm) - Width 1.3 0.8 0.6 -Post Debridement (cm) - Depth 0.1 0.1 0.1 -Total Square (Post) (cm) 2.08 1.20 0.90 -Area of Debridement (cm) - Length 1.6 1.5 1.5 -Area of Debridement (cm) - Width 1.3 0.8 0.6 -Total Square (Area) (cm) 2.08 1.20 0.90 -Tunneling No No No -Undermining/Tunneling No No No -Circular Undermining No No No -Wound/Ulcer Outcome Not Healed Not Healed Not Healed -Ulcer Cleansing Rinsed/ Rinsed/ Rinsed/ Irrigated with Irrigated with Irrigated with Saline Saline Saline -Foul Odor after Cleansing No No No -Bioengineered Tissue No No No -Bleeding Controlled with Pressure Pressure Pressure -Treatment Response Procedure Procedure Procedure Tolerated Well Tolerated Well Tolerated Well -Offloading No No -Debridement - Subq, 1st 20sq cm Yes No No Pain Scale: 0-10 Numeric Is Patient Pain Free? Yes Yes Yes WC - Nurse 3 - General Ulcer D/C NN Start: 10/14/23 13:43 Freq: Status: Active Protocol: Activity Type Activity Date Activity User E-sign Co-sign Detail Recorded Client Recorded Date Recorded By Document 10/14/23 14:24 DL [email or web address] 10/14/23 14:26 DL Document 10/21/23 10:52 KW ; 10/21/23 10:54 KW Document 10/28/23 12:03 [id number] 10/28/23 12:06 DE 10/14/23 10/21/23 10/28/23 14:24 10:52 12:03 Wound Care Center Nurse 3 #5 LLE Med -Ulcer Cleansing Rinsed/ Irrigated with Saline -Foul Odor after Cleansing No -Primary Dressing Applied Optilok 8x12, Nugauze, Silvercel Iodoform 1/4in, Optilok 6.5x10 -Other Dressing betadine packing -Primary Dressing Covered/Secured with Dry Gauze & Dry Gauze & Dry Gauze & Roll Gauze, Roll Gauze, Roll Gauze, Secured with Secured with Secured with Tape Tape Tape -Nugauze, Iodoform 1/4in 1 -Optilok 6.5x10 1 -Optilok 8x12 1 -Silvercel 1 #3 R Med Foot -Ulcer Cleansing Rinsed/ Irrigated with Saline -Foul Odor after Cleansing No -Primary Dressing Applied Promogran Valerie Matter -Other Dressing betadine -Primary Dressing Covered/Secured with Dry Gauze & Dry Gauze & Roll Gauze, Roll Gauze, Secured with Secured with Tape Tape -Promogran Valerie Matter 1 BLE -Multi-Layered Wrap Application Multi-Layer Comp - Bilat ($ ) Right -Multi-Layered Wrap Application Multi-Layer Comp - Right ($ ) -Tubular Bandage Single Layer -Size of Tubigrip Used Size F -Size F ($) 1 Left -Tubular Bandage Single Layer Double Layer -Size of Tubigrip Used Size F Size F -Size F ($) 1 2 Treatment Response Procedure Tolerated Well Pain Scale: 0-10 Numeric Is Patient Pain Free? Yes Yes Yes WC - Visit Discharge Discharge Condition Stable Stable Ambulatory Status Ambulatory Wheelchair Transportation Private Auto Private Auto Medication Reconcilliation completed & No provided to patient/care provider Clinical Summary of Care Provided Yes Facility Type Home Health Orders Sent Yes Assessment/Plan Assessment/Plan (1) Non-pressure chronic ulcer of other part of left lower leg with fat layer exposed: CODE(S): L97.822 - Non-pressure chronic ulcer of other part of left lower leg with fat layer exposed PLAN: Patient was examined and evaluated. All findings were discussed with the patient. All questions were answered to the patient's satisfaction. Excisional debridement down to and including subcutaneous tissue with a number 3 mm dermal curette to the left medial leg ulceration. Predebridement measurement is 0.1 x 0.2 x 3.0 cm. Postdebridement measurement is 0.2 x 0.3 x 4.0 cm. Excisional debridement down to and including subcutaneous tissue with a number 3 mm dermal curette to the right foot ulceration. Predebridement measurement is 1.3 x 0.5 x 0.1 cm. Postdebridement measurement is 1.5 x 0.6 x 0.1 cm. Right lower extremity was dressed with Betadine soaked gauze and 3M compression wrap. The left lower extremity was dressed with quarter inch iodoform packing dry sterile dressing and a double layer Tubigrip. Orders given for dressing changes per home health care nurse. Educated the patient on smoking cessation Educated the patient that in order to get the proximal left leg ulceration healed recommend surgical intervention consisting of incision and drainage with delayed primary closure. She is agreeable educated the patient on signs of infection and educated the patient to present to the emergency department [place] if there is any concerns for worsening infection, has to wait for approval for her surgery. Follow-up at the wound care center with Dr. Maguire in 1 week. (2) Non-pressure chronic ulcer of other part of right foot with fat layer exposed: CODE(S): L97.512 - Non-pressure chronic ulcer of other part of right foot with fat layer exposed (3) Diabetes mellitus with diabetic polyneuropathy: CODE(S): E11.42 - Type 2 diabetes mellitus with diabetic polyneuropathy
--- NOTE | 2023-11-11 11:15 | WC ---
Patient called and left a voicemail message letting us know she is in pain and was discharged from the hospital with no pain meds. Notified Dr Perez on backline and he called in pain meds to [facility] Mary D. Called and spoke to patient updating her, also had Amber get patient scheduled for next week with Dr Perez.
== END 2023-11-11 23:59 | disposition home or self-care (01) ==
LOC: WC 11:00
PROVIDERS: PCP Nurse Practitioner Family; Referring Provider Internal Medicine; Visit Provider Podiatrist
DX: E11.621 Type 2 diabetes mellitus with foot ulcer (principal); L97.822 Non-pressure chronic ulcer of other part of left lower leg with fat layer exposed; L97.512 Non-pressure chronic ulcer of other part of right foot with fat layer exposed; E11.42 Type 2 diabetes mellitus with diabetic polyneuropathy; Z79.4 Long term (current) use of insulin; F17.200 Nicotine dependence, unspecified, uncomplicated; Z79.84 Long term (current) use of oral hypoglycemic drugs; Z79.899 Other long term (current) drug therapy
CPT/HCPCS: 11042; 29581

== ENCOUNTER 2023-11-02 13:26 | Inpatient (IN) | payer MEDICAID, SELFPAY ==
[2023-11-02 13:29] VITALS: BP 119/96; PULSE 87; RESP 16; TEMP 35.8; O2SAT 98
[2023-11-02 13:30] VITALS: BMI 58.8
[2023-11-02 15:07] LABS: Absolute Lymphocyte Count 1.01 X10^3/uL (0.83-4.51); Absolute Neutrophil Count 6.6 X10^3/uL (2.0-7.7); Basophil# 0.03 X10^3/uL; Basophil% 0.4 % (0-1); Eosinophil# 0.05 X10^3/uL; Eosinophils% 0.6 % (0-5); Hematocrit 36.5 % (37-47); Hemoglobin 11.6 g/dL (12.0-15.0); Lymphocyte # 1.01 X10^3/ul (0.83-4.51); Lymphocyte % 12.4 % (19-41); Mean Corp Hgb Conc 31.8 g/dL (32-36); Mean Corpuscular Hgb 30.2 pg (27.0-32.0); Mean Corpuscular Volume 95.1 fL (81-99); Mean Platelet Vol. 10.8 fl (6.2-12.0); Monocyte# 0.41 X10^3/uL; NRBC Flagged by Analyzer 0 % (0-5); Neutrophil # 6.64 X10^3/uL (2.7-7.7); Neutrophil % 81.2 % (47-70); Platelet Count 137 K/mm3 (150-450); RBC Distribution Width CV 13.9 % (11.6-14.6); RBC Distribution Width SD 48.1 fl (35.1-43.9); Red Blood Count 3.84 M/mm3 (4.2-5.4); White Blood Count 8.2 K/mm3 (4.4-11.0)
[2023-11-02 15:19] LABS: Internal QC Validated? YES +Cl - CLEAR BKGD; Pregnancy, Serum, hCG Quali. NEGATIVE Negative
[2023-11-02 15:27] VITALS: BP 153/86; PULSE 92; RESP 18; O2SAT 92
[2023-11-02 15:29] LABS: ALB/GLOB Ratio 0.4 RATIO (0.9-2.4); AST(SGOT) 15 U/L (15-37); Alanine Aminotransfer ALT/SGPT 17 U/L (13-56); Alkaline Phosphatase 184 U/L (45-117); Anion Gap 8 (5-15); BUN 41 mg/dL (7-18); BUN/Creat Ratio 9.3 RATIO (10-20); Chloride 96 mmol/L (98-107); Creatinine, Serum 4.39 mg/dL (0.55-1.02); EST Glomerular Filtration Rate 12 mL/min (>60); Est Glom Filt Rate - Afr Amer 14 mL/min (>60); Globulin 4.8 g/dL (2.2-4.2); Glucose 256 mg/dL (74-106); Potassium 3.6 mmol/L (3.5-5.1); Protein, Total 6.8 g/dL (6.4-8.2); Sodium Level 134 mmol/L (136-145)
--- NOTE | 2023-11-02 15:44 | EDS_ITS ---
HPI History of Present Illness Chief Complaint: General Illness Informant: patient Onset/Context/Timing Onset: Today and Yesterday Current Severity: Mild Maximum Severity: Mild Narrative Narrative: 42-year-old female history of insulin diabetes and end-stage renal disease 6 dialysis Thursday, and Thursday. Prior history of renal cancer with partial renal resection. Leg wound on her left lower medial calf which Dr. Maguire of podiatry has been taken care of. She had an I&D and admission Emergency Department. She was on the antibiotic Keflex plus doxycycline. Which she has now completed. Said yesterday she had a fever as high as 100.6. She denies any redness around the wound. She has had nausea and vomiting but no diarrhea. No cough or shortness of breath. No dysuria. Prior similar symptoms: Yes Recent Illness/Hospitalization: No PFSH PFSH Allergy/AdvReac Type Severity Reaction Status Date / Time bee venom protein (honey Allergy Severe Anaphylaxis Verified 11/02/23 13:29 bee) (bee stings) clindamycin Allergy Severe Hives Verified 11/02/23 13:29 metformin AdvReac Intermediate Diarrhea Verified 11/02/23 13:29 dulaglutide (From Trulicity) AdvReac Mild Constipatio Verified 11/02/23 13:29 n Social History Smoking Status: Never smoker ROS ROS ED ROS Narrative Nausea vomiting. Fever. Review of Systems ROS Unobtainable: Denies due to encephalopathy Constitutional Constitutional ED: Reports fever(s); Denies chills Eyes Eyes: Denies blurry vision ENT ENT ED: Denies ear pain Cardiovascular Cardiovascular: Denies chest pain Respiratory/Chest Respiratory/Chest: Denies cough or dyspnea Gastrointestinal Gastrointestinal: Reports nausea and vomiting; Denies abdominal pain, constipation, diarrhea or melena Genitourinary Genitourinary ED: Denies dysuria or hematuria Musculoskeletal Musculoskeletal: Denies arthralgias Integumentary Denies abscess Neurologic Neurologic: Denies headache(s) Psychiatric Psychiatric: Denies anxiety, depression or suicidal ideation Hematologic/Lymphatic Hematologic/Lymphatic: Reports none Allergic/Immunologic Allergic/Immunologic ED: Denies mouth swelling, tongue swelling or urticaria EXAM Physical Exam Narrative Exam Narrative: Either female no acute distress vital signs stable afebrile. Pulse ox 98% on room air no hypoxia. H EENT exam unremarkable. Dry mucous membranes. Neck nontender no lymphadenopathy. Lungs clear to auscultation bilateral. Heart regular rhythm rate about 85 no murmur. Chest wall and ribs nontender. Abdomen soft nontender. No peritoneal signs. Back nontender. Moving all 4 extremities. Neurovascular intact. 5 of 5 sr. manager marketing strength. Dorsi plantarflexion intact. Left lower leg has a dressing on it there is a wound on her left proximal medial calf there is surrounding cellulitis. There is no draining or pus. There is no streaks. No fluctuance. Patient is awake and alert. Const Vital Signs: 11/02/23 13:29 11/02/23 14:49 11/02/23 15:27 Temperature 96.4 F L Temperature Source Temporal Pulse Rate 87 92 Respiratory Rate 16 18 Respiratory Effort Normal Non-Labored Respiratory Pattern Normal Blood Pressure 119/96 H 153/86 H Blood Pressure Mean 103 108 Pulse Ox 98 92 Oxygen Delivery Method Room Air Room Air 11/02/23 17:00 11/02/23 17:50 Temperature 97.7 F L Temperature Source Pulse Rate 101 H 101 H Respiratory Rate 18 18 Respiratory Effort Respiratory Pattern Blood Pressure 128/88 H 128/88 H Blood Pressure Mean 101 101 Pulse Ox 94 94 Oxygen Delivery Method Room Air Positive well nourished and well developed; Negative for cachectic, contractures or unkempt General Appearance ED: well developed and NAD; Negative for unkempt, cachectic, contractures, cyanotic, diaphoretic or pallor Nutritional Appearance: Negative for cachectic HEENT Reports dry mucous membranes; Denies moist mucous membranes Negative for trauma or tenderness Mouth ED: Yes dry mucous membranes Mouth: dry mucous membranes Eyes PERRL and EOMs intact bilaterally General Eye ED: Negative for pale conjunctiva or scleral icterus Neck no lymphadenopathy, supple and no JVD General: Negative for tenderness Lymph Lymphatic: Negative for other Chest Wall inspection of chest normal and palpation of chest normal Chest: Negative for other Resp normal respiratory effort and clear to auscultation bilaterally Effort and Inspection: Negative for retractions Auscultation: Negative for rales, rhonchi, wheezes or diminished lung sounds Cardio regular rate, regular rhythm, S1 normal heart sound, S2 normal heart sound and no murmurs Rate: Negative for bradycardia or tachycardic Rhythm: Negative for abnormal rhythm GI normal to inspection, nondistended, normoactive bowel sounds, non-tender, non- distended and no masses Inspection: Negative for abdominal distention Palpation: soft; Negative for tender, guarding or rebound tenderness present Back/Spine no CVA tenderness General Back: Negative for CVA tenderness Cervical Spine: Negative for cervical spine tenderness Thoracic Spine / Upper Back: Negative for thoracic spinal tenderness or paraspinal muscle tenderness Lumbar Spine / Lower Back: Negative for lumbar spinal tenderness Extremity normal to inspection Extremity Narrative: Old wound left lower leg. Previously I indeed. Left calf circumferential cellulitis. No fluctuance. No purulent discharge. No lymphangitic streaking or left inguinal lymphadenopathy. General Extremety ED: Negative for edema General Extremity: Negative for edema Neuro oriented x3 and CN's II-XII intact bilaterally Sensorium / Orientation: alert; Negative for orientation impaired, lethargic or stuporous Motor Exam: strength 5/5 throughout Psych mental status grossly normal Appearance: Negative for unkempt Attitude: No agitated Mood & Affect: Negative for depressed, anxious or tearful Skin no rashes or lesions noted and no wounds General Skin Exam: Negative for jaundice or pallor Trauma: Negative for abrasion Wounds: wounds noted MDM MDM MDM Narrative Medical decision making narrative: 42-year-old female with diabetes and is end-stage renal disease on dialysis who has had a fever nausea vomiting last 2 days. Screening labs are being obtained. The wound on her left leg is mildly tender but not fluctuant there is cellulitis. There is no lymphangitic streaking nor any inguinal lymphadenopathy. Repeat exam unchanged. Patient be started on Zosyn and vancomycin for the left leg cellulitis and possible abscess or phlegmon. I spoke to podiatry on-call for Dr. Maguire's partner. They will be consulted. I also spoke to Dr. Dalila Patel of the hospitalist who admit the patient is down in the ER seeing the patient at this time. Lab Data Attestation: I reviewed the patient's lab results. Lab results narrative: CBC shows white count 8.2. H&H 11.6 and 36.5. Platelets 137. No old labs available for comparison. Electrolytes show sodium 134. He has so. BUN 41 creatinine 4.39 consistent with her end-stage renal disease. Glucose 256. Liver enzymes show an elevated alk phos 184. test negative. Labs: Laboratory Results - last 24 hr 11/02/23 11/02/23 14:55 17:15 WBC 8.2 RBC 3.84 L Hgb 11.6 L Hct 36.5 L MCV 95.1 MCH 30.2 MCHC 31.8 L RDW Std Deviation 48.1 H RDW Coeff of Luciano 13.9 Plt Count 137 L MPV 10.8 Immature Gran % (Auto) 0.400 Neut % (Auto) 81.2 H Lymph % (Auto) 12.4 L [place] % (Auto) 5.0 Eos % (Auto) 0.6 Baso % (Auto) 0.4 Absolute Neuts (auto) 6.6 Absolute Lymphs (auto) 1.01 Nucleated RBC % 0 Sodium 134 L Potassium 3.6 Chloride 96 L Carbon Dioxide 30.0 Anion Gap 8 BUN 41 H Creatinine 4.39 H Est GFR (MDRD) Af Amer 14 L Est GFR (MDRD) Non-Af 12 L BUN/Creatinine Ratio 9.3 L Glucose 256 H Calcium 9.0 Total Bilirubin 0.50 AST 15 ALT 17 Alkaline Phosphatase 184 H Total Protein 6.8 Albumin 2.0 L Globulin 4.8 H Albumin/Globulin Ratio 0.4 L Serum , Qual NEGATIVE Urine Color Yellow Urine Clarity Clear Urine pH 6.0 Ur Specific [place] 1.010 Urine Protein 100 H Urine Glucose (UA) 50 H Urine Ketones Negative Urine Occult Blood 50 H Urine Nitrite Negative Urine Bilirubin Negative Urine Urobilinogen Normal Ur Leukocyte Esterase 25 H Radiography Diagnostic Testing: Clinical Impression(s) from Imaging Studies Lower Extremity CTA 11/02/23 15:50 IMPRESSION: Atherosclerotic changes without evidence for hemodynamically significant stenosis with patent three-vessel runoff to the level of the ankle.. There is cellulitis of the calf with most severe involvement of the posterior medial aspect. There is a very small phlegmonous lesion containing tiny air bubbles possibly due to gangrenous changes. There is no well-defined abscess or evidence for acute osteomyelitis Electronically Signed: Jeffry Bernardo MD at 16:53 EDT Reading Location ID and State: [facility] / [place] Tel , Service support , Discharge Plan Triage Chief Complaint: General Illness ED Provider: Sam Parrish Dx/Rx/DC Orders Clinical Impression: Cellulitis and abscess of left leg, History of diabetes mellitus, History of end stage renal disease Primary Care Provider: Areli Kincaid Referrals: Areli Kincaid, PRINCIPAL ADMINISTRATIVE CLERK-C [Primary Care Provider] - Print Language: Surinamese Disposition Disposition: Acute [facility]
--- NOTE | 2023-11-02 15:50 | CT_ITS ---
STUDY: CTA OF THE ABDOMINAL AORTA AND BILATERAL LOWER EXTREMITIES REASON FOR EXAM: Female, 42 years old. LEFT MEDIAL CALF WOUND RADIATION DOSAGE (If Supplied By Facility): CTDIvol = ( 19.58 ) mGy, DLP = ( 1356.40 ) mGycm TECHNIQUE: Axial CT angiography multi-detector data acquisition was obtained from the to the following intravenous administration of 100mL Isovue 370. Axial images and MIP images were reconstructed from the axial data set. Post-processing of the angiographic images was performed, with multiplanar reformation and 3D reconstruction. Individualized dose optimization techniques were used for this CT. TECHNICAL QUALITY: Good COMPARISON: None. Descriptors of Narrowing: None (0%) Mild (< 50%) Moderate (50-70%) Severe (70-90%) Subtotal/Total Occlusion (90-100%) Non-Evaluable (technically non-diagnostic FINDINGS: Abdominal aorta: No demonstrated narrowing. . Left common iliac artery: No demonstrated narrowing. Left external iliac artery: No demonstrated narrowing. Left internal iliac artery: No demonstrated narrowing. LEFT LOWER EXTREMITY Left common femoral artery: Mild calcific plaquing without significant narrowing. Left profundus femoris: No demonstrated narrowing. Left superficial femoral: Mild multifocal calcific plaquing without significant narrowing. Left popliteal artery: No demonstrated narrowing. Left tibioperoneal trunk: No demonstrated narrowing. Left anterior tibial artery: No demonstrated narrowing. Left posterior tibial artery: No demonstrated narrowing. Left peroneal artery: No demonstrated narrowing. There is cellulitis within subcutaneous fat most severe in the posterior medial aspect of the calf. There is a small poorly defined lesion measuring approximately 2.6 x 1.3 cm demonstrating tiny air bubbles possibly representing gangrenous changes. There is no well-defined abscess at this time. The myofascial fat planes are well-maintained and muscle bundles are within normal limits.. No evidence for acute osteomyelitis CT/CTA LWR EXTR W/O & W/DYE IMPRESSION: Atherosclerotic changes without evidence for hemodynamically significant stenosis with patent three-vessel runoff to the level of the ankle.. There is cellulitis of the calf with most severe involvement of the posterior medial aspect. There is a very small phlegmonous lesion containing tiny air bubbles possibly due to gangrenous changes. There is no
[2023-11-02] MEDS: Ondansetron 4 MG/2 ML Vial IV (16:05)
[2023-11-02] MEDS: 0.9% Normal Saline (500mL Bag) 500 ML 999 ML IV (16:06)
[2023-11-02 17:00] VITALS: BP 128/88; PULSE 101; RESP 18; O2SAT 94
[2023-11-02 17:19] LABS: Mucous, Urine 0 SEEN /hpf (<or=2+)
[2023-11-02 17:23] LABS: Color, Urine Yellow (Yellow); Glucose, Dipstick 50 mg/dl (Normal); Ketone-Dipstick Negative (Negative); Leukocyte Esterase-Dipstick 25 /ul (Negative); Nitrite-Dipstick Negative (Negative); Occult Blood-Urine 50 /ul (Negative); Protein-Dipstick 100 mg/dl (Negative); Urine Bilirubin Dipstick Negative (Negative); Urine Clarity Clear (Clear); Urine Urobilinogen Normal (Normal)
[2023-11-02 17:50] VITALS: BP 128/88; PULSE 101; RESP 18; TEMP 36.5; O2SAT 94
--- NOTE | 2023-11-02 18:01 | NURSING ---
MED SURG WHITE LEFT CALF CELLULITIS, DM, ESRD, ABSCESS
--- NOTE | 2023-11-02 18:11 | PCM.HP.STD ---
HPI - General General Date of Admission: 11/02/23 Date of Service: 11/02/23 Chief Complaint: LLE redness, pain, drainage from wound, recent I+D at Podiatry Office. HPI Narrative The patient is a 42 y/o F w/ PMHx: Morbid obesity, Chronic anemia/Fe deficiency anemia, ESRD on HD T//Thu following with Nephrology in [place] Dr. Choi, HTN, HLD, GERD, Chronic BL LE lymphedema, IDDM with chronic neuropathy, Hypothyroidism, Anxiety and Depression/Mood disorder, JOHNY noncompliant with PAP therapy, Asthma/COPD w/ allergic rhinitis who presents to the [facility] ED on 11/02/23 with history of chronic wound to the left lower extremity medial calf which podiatry has been following and taking care of reportedly there for at least a month but recently worsened requiring an I&D and an ED evaluation with initiation of antibiotic therapy including Keflex and doxycycline which she completed with repeat podiatry outpatient evaluation and unfortunately onset of fever up to 100.6 at home with increased redness around the wound and from the ankle to the distal knee circumferentially with nausea and emesis prompting eventual ED reevaluation to be cautious. Workup in the ED included T96.4, heart rate 87, BP 119/96, respiratory 16, 98% on room air, CBC with WBC 8.2, hemoglobin 11.6, MCV 95.1, platelet 137 without marked shift, CMP with sodium 134, chloride 96, BUN/creatinine 41/4.39, glucose 256, alk phos 24 otherwise hepatic profile not marked appearing, serum negative, UDS with protein 100, glucose 50, occult blood 50, negative nitrite, leukocyte Estrace 25 with 1+ urine bacteria, CTA of the abdomen, aorta, bilateral lower extremities with noted atherosclerotic changes without evidence for any hemodynamically significant stenosis with patent three-vessel runoff to the level of the ankle, cellulitis of the calf with most severe involvement of the posterior medial aspect, very small phlegmon lesion containing tiny air bubbles possibly due to gangrenous changes with no well-defined abscess or evidence for any acute osteomyelitis. In the ED patient administered IV vancomycin, IV Zosyn as well as Zofran 4 mg IV x 1. ED did discuss case with podiatry Dr. Cuevas who is familiar with patient and did perform patient recent I&D and placed patient on antibiotic therapy. [facility] Medical History (Updated 11/02/23 @ 20:[address] Dalila Patel MD) Hypothyroidism Allergic rhinitis Chronic acquired lymphedema Morbid obesity Chronic anemia ESRD (end stage renal disease) on dialysis History of renal cell cancer Chronic painful diabetic neuropathy IDDM (insulin dependent diabetes mellitus) Tobacco use Mood disorder Anxiety and depression Sleep apnea COPD (chronic obstructive pulmonary disease) Asthma Home Medications ?Medication ?Instructions ?Recorded ?Last Taken ?Type atorvastatin 40 mg tablet 40 mg PO QHS HLD 11/02/23 Unknown History bumetanide 2 mg tablet 2 mg PO TID HTN, edema 11/02/23 Unknown History famotidine 20 mg tablet 20 mg PO BID GERD 11/02/23 Unknown History ferrous sulfate 325 mg (65 mg 325 mg PO DAILY Fe deficiency 11/02/23 Unknown History iron) tablet (FeroSul) anemia gabapentin 100 mg capsule 200 mg PO TID DM neuropathy 11/02/23 Unknown History glipizide 10 mg tablet 20 mg PO BID DM 11/02/23 Unknown History insulin aspart U-100 100 unit/mL subcut ISS DM 11/02/23 Unknown History subcutaneous solution insulin glargine 100 unit/mL (3 30 unit subcut QHS DM 11/02/23 Unknown History mL) subcutaneous pen (Lantus Solostar U-100 Insulin) levothyroxine 25 mcg tablet 25 mcg PO DAILY Hypothyroidism 11/02/23 Unknown History lisinopril 20 mg tablet 20 mg PO DAILY HTN 11/02/23 Unknown History metoprolol succinate 50 mg 50 mg PO DAILY HTN 11/02/23 Unknown History tablet,extended release 24 hr montelukast 10 mg tablet 10 mg PO QHS Allergic rhinitis 11/02/23 Unknown History nifedipine 30 mg tablet,extended 30 mg PO HTN 11/02/23 Unknown History release pantoprazole 40 mg tablet,delayed 40 mg PO DAILY GERD 11/02/23 Unknown History release quetiapine 25 mg tablet 25 mg PO QHS 11/02/23 Unknown History Anxiety/Depression/Mood disorder Allergy/AdvReac Type Severity Reaction Status Date / Time bee venom protein (honey Allergy Severe Anaphylaxis Verified 11/02/23 13:29 bee) (bee stings) clindamycin Allergy Severe Hives Verified 11/02/23 13:29 metformin AdvReac Intermediate Diarrhea Verified 11/02/23 13:29 dulaglutide (From Trulicity) AdvReac Mild Constipatio Verified 11/02/23 13:29 n Family History Mother Diabetes Father Cancer Hx Lung, Rectal cancer. COPD (chronic obstructive pulmonary disease) Diabetes Surgical History (Updated 11/02/23 @ 20:[address] Dalila Patel MD) S/P foot surgery, left H/O partial nephrectomy Social History (Updated 11/02/23 @ 20:[address] Dalila Patel MD) household members: family Smoking Status: Current every day smoker tobacco type: cigarettes Smoking packs per day: 0.5 Smoking cigarettes per day: 10.0 alcohol intake: never substance use type: does not use ROS ROS Narrative Admission Review of Systems: CONSTITUTIONAL: No weight loss, + fever, chills, weakness or fatigue. HEENT: Eyes: No visual loss, blurred vision, double vision or yellow sclerae. Ears, Nose, Throat: No hearing loss, sneezing, congestion, runny nose or sore throat. SKIN: No rash or itching, lesions except + left lower extremity significant erythema, wound, purulent drainage. CARDIOVASCULAR: + Chronic bilateral extremity edema, lymphedema. No chest pain, chest pressure or chest discomfort, palpitations, orthopnea, syncopal events. RESPIRATORY: No shortness of breath, cough or sputum, wheezing, hemoptysis. GASTROINTESTINAL: + Anorexia, nausea, vomiting. No diarrhea, abdominal pain, melena, BRBPR. GENITOURINARY: No dysuria, frequency, urgency or retention. NEUROLOGICAL: No headache, dizziness, syncope, paralysis, ataxia, numbness or tingling in the extremities, focal weakness, change in bowel or bladder control, seizure. MUSCULOSKELETAL: + muscle, back pain, joint pain or stiffness. HEMATOLOGIC: + Chronic anemia. No active bleeding or easy bruising. LYMPHATICS: No enlarged nodes. No history of splenectomy. PSYCHIATRIC: + History of anxiety and depression/mood disorder. ENDOCRINOLOGIC: + sweating, cold or heat intolerance. No polyuria or polydipsia. ALLERGIES: + History of asthma, allergic rhinitis, hives, anaphylaxis. Vital Signs Vital Signs Vital Signs: 11/02/23 13:29 11/02/23 14:49 11/02/23 15:27 Temperature 96.4 F L Temperature Source Temporal Pulse Rate 87 92 Respiratory Rate 16 18 Respiratory Effort Normal Non-Labored Respiratory Pattern Normal Blood Pressure 119/96 H 153/86 H Blood Pressure Mean 103 108 Pulse Ox 98 92 Oxygen Delivery Method Room Air Room Air 11/02/23 17:00 11/02/23 17:50 Temperature 97.7 F L Temperature Source Pulse Rate 101 H 101 H Respiratory Rate 18 18 Respiratory Effort Respiratory Pattern Blood Pressure 128/88 H 128/88 H Blood Pressure Mean 101 101 Pulse Ox 94 94 Oxygen Delivery Method Room Air Weight Weight: 345 lb 0.375 oz Body Mass Index (BMI) 58.8 Physical Exam Narrative Physical Examination: General: Awake, alert, oriented x 3 and cooperative, seated upright in the ED bed, fatigued but no acute distress. Skin: Normal color, normal turgor, no icterus, no cyanosis except notable left lower extremity erythema extending from ankle to the distal knee circumferential, medial mid calf wound with purulent drainage with wick in place able to express some purulent material. HEENT: AT/NC, EOMI, PERRLA, mildly dry; however, thickened neck makes evaluation difficult MM, no carotid bruits or JVD noted. Lungs: Distant breath sounds, mildly increased respiratory but no distress, no rales, ronchi or wheezing. Heart: Mildly tachycardic with regular rhythm; no gallop, rub audible. Abdomen: Soft, morbidly obese, distant BS, difficult to discern HSM and NTTP, distention given habitus. Extremities: No cyanosis, no clubbing, chronic bilateral lower extremity lymphedema, see skin. Neurological: Patient awake, alert, oriented as noted, cognitive function intact; pupils equally reactive to light and accommodation, cranial nerves grossly normal, moving all 4 extremities although some difficulty with left lower extremity given pain elicited with infection, no focal deficits, strength moderately globally decreased secondary to acute presentation. Psychiatric: Affect appears fatigued, ill-appearing, no acute evidence of depressive or anxiety feelings but does have underlying history Results Lab / Micro Data 11/02/23 14:55 11/02/23 14:55 Labs: Laboratory Results - last 24 hr 11/02/23 14:55: WBC 8.2, RBC 3.84 L, Hgb 11.6 L, Hct 36.5 L, MCV 95.1, MCH 30.2, MCHC 31.8 L, RDW Std Deviation 48.1 H, RDW Coeff of Luciano 13.9, Plt Count 137 L, MPV 10.8, Immature Gran % (Auto) 0.400, Neut % (Auto) 81.2 H, Lymph % (Auto) 12.4 L, [place] % (Auto) 5.0, Eos % (Auto) 0.6, Baso % (Auto) 0.4, Absolute Neuts (auto) 6.6, Absolute Lymphs (auto) 1.01, Nucleated RBC % 0, Sodium 134 L, Potassium 3.6, Chloride 96 L, Carbon Dioxide 30.0, Anion Gap 8, BUN 41 H, Creatinine 4.39 H, Est GFR (MDRD) Af Amer 14 L, Est GFR (MDRD) Non-Af 12 L, BUN/Creatinine Ratio 9.3 L, Glucose 256 H, Calcium 9.0, Total Bilirubin 0.50, AST 15, ALT 17, Alkaline Phosphatase 184 H, Total Protein 6.8, Albumin 2.0 L, Globulin 4.8 H, Albumin/Globulin Ratio 0.4 L, Serum , Qual NEGATIVE 11/02/23 17:15: Urine Color Yellow, Urine Clarity Clear, Urine pH 6.0, Ur Specific [place] 1.010, Urine Protein 100 H, Urine Glucose (UA) 50 H, Urine Ketones Negative, Urine Occult Blood 50 H, Urine Nitrite Negative, Urine Bilirubin Negative, Urine Urobilinogen Normal, Ur Leukocyte Esterase 25 H Imaging Radiology Impression Lower Extremity CTA 11/02/23 15:50 IMPRESSION: Atherosclerotic changes without evidence for hemodynamically significant stenosis with patent three-vessel runoff to the level of the ankle.. There is cellulitis of the calf with most severe involvement of the posterior medial aspect. There is a very small phlegmonous lesion containing tiny air bubbles possibly due to gangrenous changes. There is no well-defined abscess or evidence for acute osteomyelitis Electronically Signed: Jeffry Bernardo MD at 16:53 EDT , Assessment & Plan Assessment/Plan (1) Cellulitis and abscess of left leg: PLAN: Plan The patient is a 42 y/o F w/ PMHx: Morbid obesity, Chronic anemia/Fe deficiency anemia, ESRD on HD T//Thu following with Nephrology in [place] Dr. Choi, HTN, HLD, GERD, Chronic BL LE lymphedema, IDDM with chronic neuropathy, Hypothyroidism, Anxiety and Depression/Mood disorder, JOHNY noncompliant with PAP therapy, Asthma/COPD w/ allergic rhinitis who presents to the [facility] ED on 11/02/23 with history of chronic wound to the left lower extremity medial calf which podiatry has been following and taking care of reportedly there for at least a month but recently worsened requiring an I&D and an ED evaluation with initiation of antibiotic therapy including Keflex and doxycycline which she completed with repeat podiatry outpatient evaluation and unfortunately onset of fever up to 100.6 at home with increased redness around the wound and from the ankle to the distal knee circumferentially with nausea and emesis prompting eventual ED reevaluation to be cautious. #1. LLE Cellulitis with recent mid-calf medial abscess s/p recent outpatient I+D per Podiatry on abx therapy, Failed outpatient interventions: Will admit to [facility], maintain on IV vanc and zosyn, will obtain Wound Cx, will obtain Wound MRSA PCR, plan repeat CBC in AM, continue affected extremity elevation above heart when seated and in bed, monitor erythema outline with VS checks, consult Podiatry who patient has been following, Wound RN consulted additionally, HgBA1c requested given history concurrently, as needed antiemetic/pain regimen. #2. Chronic anemia/Fe deficiency anemia: Admission hemoglobin 11.6, MCV 95.1, unclear exact baseline but likely chronic, will trend CBC, clarifying if on chronic iron supplementation but notes history. #3. Anxiety and depression/mood disorder: Clarifying as patient was previously listed on both paroxetine versus Cymbalta, will add appropriate regimen once verified, will continue additionally low-dose Seroquel regimen. #4. Diabetes mellitus type II with chronic neuropathy: Hold oral home regimen, continue home insulin regimen, given presentation HgbA1c requested, maintain on ADA diet, accu checks w/ ISS, continue chronic gabapentin regimen. #5. Chronic COPD/asthma with allergic rhinitis: Does not appear to be any chronic regimen but clarifying medications, will maintain on ATC budesonide, PRN albuterol, HOB, IS parameters. #6. ESRD: Patient with dialysis ongoing Thursday, , Thursday, following with Dr. Choi in [place], will request consultation with Dr. Martina tamayo for ongoing HD while at [facility]. #7. Hypertension: Continue home regimen including Bumex, lisinopril, nifedipine, metoprolol but clarifying will de-escalate off if these medications are not correct, PRN hydralazine. #8. History of renal cancer patient: status post partial left nephrectomy, unclear additional intervention timeline, patient is not the best historian, notes considered in remission. #9. Morbid Obesity: Weight loss and lifestyle changes encouraged. #10. Chronic bilateral lower extremity lymphedema: Will place neck Jori wraps with elevation encouraged. #11. Hypothyroidism: We will continue patient home levothyroxine regimen. #12. GERD: We will continue patient on PPI, Mylanta as needed. #13. JOHNY: Patient is noncompliant with her PAP therapy, reports using a fan on her while she sleeps, not amenable to trying as she notes it makes her extremely anxious and claustrophobic. #14. Hyperlipidemia: We will continue patient home statin therapy. #15. DVT prophylaxis: Lovenox. #16. CODE STATUS: Full code Charges/Coding Visit Charges Inpatient E&M: 80882 Init Hosp L3
[2023-11-02 18:12] LABS: Red Blood Cells-Urine 0-5 SEEN /hpf (0-5); White Blood Cells 0-5 SEEN /hpf (0-5)
[2023-11-02 18:13] LABS: Bacteria 1+ /hpf (None Seen); Hyaline Cast 0-5 SEEN /lpf (0-5); Squamous Epithelial Cells - UA 5-10 SEEN /hpf (5-10)
[2023-11-02] MEDS: Piperacil/Tazobactam 4.5 GM in 0.9% Normal Saline (100mL MB+) 100 ML IV (18:21)
[2023-11-02] MEDS: Vancomycin HCl 2,000 MG in 0.9% Normal Saline (500mL Bag) 500 ML 250 MG IV (18:46)
[2023-11-02 18:58] LABS: Magnesium 2.1 mg/dL (1.6-2.6); Phosphorus 4.1 mg/dL (2.5-4.9)
[2023-11-02 19:32] VITALS: BMI 61.8
--- NOTE | 2023-11-02 20:14 | PCM.RX.CS ---
Consult Antibiotic Management Pharmacy has been consulted to manage selected antibiotic: Vancomycin Type of Intervention Type of Consult: New start Suspected Infection Suspected Infection: Skin/Soft tissue Prior Doses of Antibiotics Prior Doses of Antibiotics Received/Current Regimen: Received 2000mg iv x 1 as loading dose on 11.02.23 @1846. Labs Labs: Sodium 134 mmol/L (136-145) L 11/02/23 14:55 Potassium 3.6 mmol/L (3.5-5.1) 11/02/23 14:55 Chloride 96 mmol/L (98-107) L 11/02/23 14:55 Carbon Dioxide 30.0 mmol/L (21.0-32.0) 11/02/23 14:55 Anion Gap 8 (5-15) 11/02/23 14:55 BUN 41 mg/dL (7-18) H 11/02/23 14:55 Creatinine 4.39 mg/dL (0.55-1.02) H 11/02/23 14:55 Est GFR (MDRD) Af Amer 14 mL/min (>60) L 11/02/23 14:55 Est GFR (MDRD) Non-Af 12 mL/min (>60) L 11/02/23 14:55 BUN/Creatinine Ratio 9.3 RATIO (10-20) L 11/02/23 14:55 Glucose 256 mg/dL (74-106) H 11/02/23 14:55 Dosing Weight Weight used for dosin.4 kg Estimated Creatinine Clearance Estimated Creatinine Clearance: 26 ml/min Goal Trough Goal Trough: 15-20 mcg/mL Pharmacy Plan for Drug Dosing Pharmacy Plan for Drug Dosing: HD patient with schedule . Further dosing determined by when gets next dialysis. Pharmacy Service will continue to monitor and adjust dosing as required.
[2023-11-02 20:48] VITALS: PULSE 97; RESP 21; O2SAT 90
[2023-11-02] MEDS: Budesonide Respules 0.5 MG/2 ML AMPUL.NEB. INHALATION (20:48)
[2023-11-02] MEDS: Gabapentin 100 MG Capsule 200 MG PO (21:09)
[2023-11-02 21:17] VITALS: BP 126/84; PULSE 94; RESP 18; TEMP 36.5; O2SAT 93
[2023-11-02] MEDS: Bumetanide 2 MG Tablet PO (21:18)
[2023-11-02] MEDS: Heparin Injection (Vial) 5,000 UNIT/ML VIAL 5000 UNIT SC (21:18)
[2023-11-02] MEDS: Insulin Glargine-YFGN 100 UNIT/ML Pen 30 UNIT SC (21:19)
[2023-11-02] MEDS: Atorvastatin Calcium 40 MG Tablet PO (21:19)
[2023-11-02] MEDS: Insulin Lispro 100 UNIT/ML INSULN.PEN SC (21:19)
[2023-11-02] MEDS: QUEtiapine 25 MG Tablet PO (21:20)
[2023-11-02] MEDS: Famotidine 20 MG Tablet PO (21:20)
[2023-11-02] MEDS: Montelukast 10 MG Tablet PO (21:21)
[2023-11-02] MEDS: Acetaminophen 325 MG Tablet 650 MG PO (21:21)
[2023-11-02] MEDS: oxyCODONE 5 MG Tablet PO (21:21)
[2023-11-02] MEDS: 0.9% Normal Saline (1000mL) 1,000 ML 100 ML IV (21:27)
[2023-11-02 22:32] LABS: Bedside Glucose 238 mg/dL (74-106)
[2023-11-03] VITALS (17 sets, daily range): BP systolic 88–300; BP diastolic 62–97; PULSE 74–90; RESP 16–20; TEMP 36.1–36.6; O2SAT 88–100; BMI 61.7; BMI 61.0
[2023-11-03] MEDS: Acetaminophen 325 MG Tablet 650 MG PO ×4 (03:54→22:12)
[2023-11-03] MEDS: oxyCODONE 5 MG Tablet PO ×4 (03:54→22:12)
[2023-11-03] MEDS: Piperacil/Tazobactam 3.375 GM in 0.9% Normal Saline (50mL MB+) 50 ML IV (06:20)
[2023-11-03] MEDS: Insulin Lispro 100 UNIT/ML INSULN.PEN SC ×2 (06:20→22:11)
[2023-11-03] MEDS: Bumetanide 2 MG Tablet PO ×3 (06:20→22:10)
[2023-11-03] MEDS: Levothyroxine 25 MCG TABLET PO (06:20)
[2023-11-03] MEDS: Gabapentin 100 MG Capsule 200 MG PO ×3 (06:20→22:11)
[2023-11-03 06:49] LABS: Bedside Glucose 243 mg/dL (74-106)
[2023-11-03] MEDS: Budesonide Respules 0.5 MG/2 ML AMPUL.NEB. INHALATION ×2 (07:10→20:15)
--- NOTE | 2023-11-03 08:33 | WOUNDNOTE ---
wound photo: right foot
--- NOTE | 2023-11-03 08:33 | WOUNDNOTE ---
wound photo: left medial lower leg
--- NOTE | 2023-11-03 08:34 | WOUNDNOTE ---
skin photo: left lower leg
--- NOTE | 2023-11-03 08:34 | WOUNDNOTE ---
wound photo: left heel
[2023-11-03 09:12] LABS: ALB/GLOB Ratio 0.4 RATIO (0.9-2.4); AST(SGOT) 15 U/L (15-37); Alanine Aminotransfer ALT/SGPT 14 U/L (13-56); Albumin, Serum 1.6 g/dL (3.2-5.0); Alkaline Phosphatase 149 U/L (45-117); Anion Gap 7 (5-15); BUN 41 mg/dL (7-18); BUN/Creat Ratio 9.4 RATIO (10-20); Calcium,Total 8.1 mg/dL (8.5-10.1); Chloride 101 mmol/L (98-107); Creatinine, Serum 4.38 mg/dL (0.55-1.02); EST Glomerular Filtration Rate 12 mL/min (>60); Est Glom Filt Rate - Afr Amer 14 mL/min (>60); Estimated Creatinine Clearance 25.73 ml/min; Globulin 4.1 g/dL (2.2-4.2); Glucose 197 mg/dL (74-106); Potassium 3.9 mmol/L (3.5-5.1); Protein, Total 5.7 g/dL (6.4-8.2); Sodium Level 133 mmol/L (136-145)
--- NOTE | 2023-11-03 09:29 | PCM.PN.HOSP ---
Reason for Visit Reason for Visit: Diagnoses Cutaneous abscess of left lower limb (11/02/23) Cellulitis of left lower limb (11/02/23) Subjective Subjective Patient was seen and examined today, she was admitted for cellulitis of her left leg that had failed outpatient treatment. Patient has a history of end-stage renal disease, type 2 diabetes, hypothyroidism, and morbid obesity. The wound care nurse saw the patient this morning and rewrapped her left lower extremity, I did not remove this wrapping for examination of the area. Patient has been seeing Dr. Maguire as an outpatient for treatment of the leg cellulitis. Objective Data Objective Data Vital Signs: Vital Signs Temp Pulse Resp BP Pulse Ox O2 Del Method 97.2 F L 90 18 131/97 H 93 Room Air 11/03/23 09:26 11/03/23 09:26 11/03/23 09:26 11/03/23 09:26 11/03/23 09:26 11/03/23 09:26 Oxygen Delivery Method Room Air Weight: 164 kg Body Mass Index (BMI) 61.7 Intake & Output: Intake and Output for Last 24 Hours 11/01/23 11/02/23 11/03/23 23:59 23:59 23:59 Intake Total 1140 / 1390 600 / 600 Balance 1140 / 1390 600 / 600 Lab / Micro Data 11/02/23 14:55 11/03/23 08:25 Labs: Laboratory Results - last 24 hr 11/02/23 14:55: WBC 8.2, RBC 3.84 L, Hgb 11.6 L, Hct 36.5 L, MCV 95.1, MCH 30.2, MCHC 31.8 L, RDW Std Deviation 48.1 H, RDW Coeff of Luciano 13.9, Plt Count 137 L, MPV 10.8, Immature Gran % (Auto) 0.400, Neut % (Auto) 81.2 H, Lymph % (Auto) 12.4 L, [place] % (Auto) 5.0, Eos % (Auto) 0.6, Baso % (Auto) 0.4, Absolute Neuts (auto) 6.6, Absolute Lymphs (auto) 1.01, Nucleated RBC % 0, Sodium 134 L, Potassium 3.6, Chloride 96 L, Carbon Dioxide 30.0, Anion Gap 8, BUN 41 H, Creatinine 4.39 H, Est GFR (MDRD) Af Amer 14 L, Est GFR (MDRD) Non-Af 12 L, BUN/Creatinine Ratio 9.3 L, Glucose 256 H, Calcium 9.0, Phosphorus 4.1, Magnesium 2.1, Total Bilirubin 0.50, AST 15, ALT 17, Alkaline Phosphatase 184 H, Total Protein 6.8, Albumin 2.0 L, Globulin 4.8 H, Albumin/Globulin Ratio 0.4 L, Serum , Qual NEGATIVE 11/02/23 17:15: Urine Color Yellow, Urine Clarity Clear, Urine pH 6.0, Ur Specific [place] 1.010, Urine Protein 100 H, Urine Glucose (UA) 50 H, Urine Ketones Negative, Urine Occult Blood 50 H, Urine Nitrite Negative, Urine Bilirubin Negative, Urine Urobilinogen Normal, Ur Leukocyte Esterase 25 H, Urine RBC 0-5 SEEN, Urine WBC 0-5 SEEN, Ur Squamous Epith Cells 5-10 SEEN, Urine Bacteria 1+, Hyaline Casts 0-5 SEEN, Urine Mucus 0 SEEN 11/02/23 20:58: POC Glucose 238 H 11/03/23 06:15: POC Glucose 243 H 11/03/23 08:25: Sodium 133 L, Potassium 3.9, Chloride 101, Carbon Dioxide 25.0, Anion Gap 7, BUN 41 H, Creatinine 4.38 H, Estim Creat Clear Calc 25.73, Est GFR (MDRD) Af Amer 14 L, Est GFR (MDRD) Non-Af 12 L, BUN/Creatinine Ratio 9.4 L, Glucose 197 H, Calcium 8.1 L, Total Bilirubin 0.30, AST 15, ALT 14, Alkaline Phosphatase 149 H, Total Protein 5.7 L, Albumin 1.6 L, Globulin 4.1, Albumin/Globulin Ratio 0.4 L Micro: Microbiology 11/02/23 20:51 Wound - Leg, Left Skin and Soft Tissue MRSA/MSSA (PCR - Final Radiography Diagnostic Testing: Radiology Impression Lower Extremity CTA 11/02/23 15:50 IMPRESSION: Atherosclerotic changes without evidence for hemodynamically significant stenosis with patent three-vessel runoff to the level of the ankle.. There is cellulitis of the calf with most severe involvement of the posterior medial aspect. There is a very small phlegmonous lesion containing tiny air bubbles possibly due to gangrenous changes. There is no well-defined abscess or evidence for acute osteomyelitis Electronically Signed: Jeffry Bernardo MD at 16:53 EDT , Physical Exam Const alert, oriented x3 and no apparent distress Constitutional Narrative: Patient is morbidly obese General Appearance: cooperative, well kempt and well developed Orientation / Consciousness: awake, oriented to person, oriented to place and oriented to time HEENT normocephalic, head/scalp atraumatic and moist oral mucous membranes Eyes PERRL, EOMs intact bilaterally and conjunctivae normal Neck supple, no JVD, thyroid normal and no carotid bruits General: trachea midline Resp normal respiratory effort, no retractions, no use of accessory muscles and clear to auscultation bilaterally Auscultation: Negative for rales, rhonchi or wheezes Cardio regular rate, regular rhythm, S1 normal heart sound, S2 normal heart sound, no murmurs and no gallops GI normal to inspection, nondistended, normoactive bowel sounds, soft to palpation, non-tender and non-distended Skin Skin Narrative: Patient's left lower extremity was not inspected due to a dressing in place with Jori wrap Neuro oriented x3, CN's II-XII intact bilaterally, moves all extremities, no focal motor deficits and no sensory deficits noted Sensorium / Orientation: awake and alert Speech: speech normal Psych affect normal Assessment & Plan Assessment/Plan (1) Cellulitis and abscess of left leg: PLAN: Plan 1. Cellulitis of the left lower extremity-I have elected to have infectious diseases see the patient in consultation, podiatry is also going to be participating in her care while she is in the hospital. Patient is on IV antibiotics presently #2 type 2 diabetes-patient's blood sugars will be monitored, sliding scale insulin will be given as indicated, patient is on basal insulin #3 hypothyroidism-patient is on Synthroid #4 morbid obesity-complicates care, management, recovery, and prognosis #5 end-stage renal disease on dialysis-Dr. Mack will see the patient in consultation, her dialysis days are Thursday and Thursday. #6 obstructive sleep apnea-patient is noncompliant with CPAP Total clinical time spent by myself addressing the patient's medical issues, reviewing all of her data, and collaborating with the patient's care team: 35 minutes Charges/Coding Visit Charges Inpatient E&M: 67244 Subs Hosp L2
--- NOTE | 2023-11-03 09:30 | MRI_ITS ---
PROCEDURE: MRI LOWER EXTREMITY LEFT TIBIA/FIBULA REASON FOR EXAM: Female, 42 years old. Left leg wound with infection TECHNIQUE: Standardized fat and water weighted pulse sequences were obtained in all 3 orthogonal planes. COMPARISON: None. FINDINGS: Normal tibia and fibula, without a periosteal, cortical or cancellous marrow abnormality. Normal anterior, lateral, and posterior calf compartments, with normal muscles, crural fascia and intermuscular septa. There is subcutis adipose space edema. There is skin thickening on the medial aspect with focal defects compatible with wound. There is no solid, cystic or lipomatous mass lesion of the subcutis adipose space. MRI/Lower Ext/No Jt/w/o IMPRESSION: Skin thickening with focal wound and subcutaneous edema. No abscess or fluid collection. No evidence of osteomyelitis. Electronically Signed: Adriel Hobbs MD at 19:42 EDT ,
--- NOTE | 2023-11-03 09:30 | VDLE_ITS ---
Reason For Study: BLE Swelling RIGHT LEFT GSV is normal. GSV is normal. CFV is compressible, spontaneous, phasic, CFV is compressible, spontaneous, phasic, competent and demonstrates normal competent, and demonstrates normal augmentation. augmentation. FV is compressible, spontaneous, phasic, FV is compressible, spontaneous, phasic, competent and demonstrates normal competent and demonstrates normal augmentation. augmentation. POP V is compressible, spontaneous, phasic, POP V is compressible, spontaneous, phasic, competent and demonstrates normal competent and demonstrates normal augmentation. augmentation. T/P Trunk is compressible. T/P Trunk is compressible. PTV is compressible. PTV is compressible. RT PerV is compressible. LT PerV is compressible. Procedure This is a venous duplex using B-mode, color flow and spectral Doppler. Exam performed portable in patient room. The study was technically difficult. A preliminary report was called and/or faxed to [employer] electrical tech/project manager. VL/Venous Duplex US - Mehul Extrem Interpretation Summary Deep veins of the bilateral lower extremities are patent and compressible segme ntally. There is no evidence of bilateral lower extremity deep vein thrombosis. The bilateral great saphenous veins appear patent and compressible segmentally. Ordering Physician: Jesse Perez Referring Physician: Areli Kincaid Performed By: Gaston Scott RVT
--- NOTE | 2023-11-03 09:30 | PCM.CONS.GEN ---
Assessment & Plan Assessment/Plan (1) ESRD (end stage renal disease): PLAN: Exam performed Patient has chronic nonhealing left calf wound failed outpatient local wound care MRI left lower extremity ordered to rule out any deep infection or abscess or hematoma Arterial studies reordered Doppler venous studies ordered to rule out any evidence DVT or venous incompetency contributing to issue Will plan for left leg wound debridement delayed primary closure as well as left heel wound debridement with application of skin substitute graft in the OR on 11/04/2023 Patient receiving IV vancomycin and Zosyn, left leg cultures pending Will continue to follow closely. 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 Patient denies any fever chills nausea vomiting chest pain calf pain shortness of breath. Typically patient typically follows with Dr. Maguire in the wound care center. Patient demonstrated acute worsening of her wound. Patient presented to the ER for hospital admission. Patient has no other complaints. FORMERLY [facility], [facility]–1983 Medical History Hypothyroidism Allergic rhinitis Chronic acquired lymphedema Morbid obesity Chronic anemia ESRD (end stage renal disease) on dialysis History of renal cell cancer Chronic painful diabetic neuropathy IDDM (insulin dependent diabetes mellitus) Tobacco use Mood disorder Anxiety and depression Sleep apnea COPD (chronic obstructive pulmonary disease) Asthma Home Medications ?Medication ?Instructions ?Recorded ?Last Taken ?Type atorvastatin 40 mg tablet 40 mg PO QHS HLD 11/02/23 Unknown History bumetanide 2 mg tablet 2 mg PO TID HTN, edema 11/02/23 Unknown History famotidine 20 mg tablet 20 mg PO BID GERD 11/02/23 Unknown History ferrous sulfate 325 mg (65 mg 325 mg PO DAILY Fe deficiency 11/02/23 Unknown History iron) tablet (FeroSul) anemia gabapentin 100 mg capsule 200 mg PO TID DM neuropathy 11/02/23 Unknown History glipizide 10 mg tablet 20 mg PO BID DM 11/02/23 Unknown History insulin aspart U-100 100 unit/mL subcut ISS DM 11/02/23 Unknown History subcutaneous solution insulin glargine 100 unit/mL (3 30 unit subcut QHS DM 11/02/23 Unknown History mL) subcutaneous pen (Lantus Solostar U-100 Insulin) levothyroxine 25 mcg tablet 25 mcg PO DAILY Hypothyroidism 11/02/23 Unknown History lisinopril 20 mg tablet 20 mg PO DAILY HTN 11/02/23 Unknown History metoprolol succinate 50 mg 50 mg PO DAILY HTN 11/02/23 Unknown History tablet,extended release 24 hr montelukast 10 mg tablet 10 mg PO QHS Allergic rhinitis 11/02/23 Unknown History nifedipine 30 mg tablet,extended 30 mg PO HTN 11/02/23 Unknown History release pantoprazole 40 mg tablet,delayed 40 mg PO DAILY GERD 11/02/23 Unknown History release quetiapine 25 mg tablet 25 mg PO QHS 11/02/23 Unknown History Anxiety/Depression/Mood disorder Allergy/AdvReac Type Severity Reaction Status Date / Time bee venom protein (honey Allergy Severe Anaphylaxis Verified 11/02/23 13:29 bee) (bee stings) clindamycin Allergy Severe Hives Verified 11/02/23 13:29 metformin AdvReac Intermediate Diarrhea Verified 11/02/23 13:29 dulaglutide (From Trulicity) AdvReac Mild Constipatio Verified 11/02/23 13:29 n Family History Mother Diabetes Father Cancer Hx Lung, Rectal cancer. COPD (chronic obstructive pulmonary disease) Diabetes Surgical History S/P foot surgery, left H/O partial nephrectomy Social History household members: family Smoking Status: Current every day smoker tobacco type: cigarettes Smoking packs per day: 0.5 Smoking cigarettes per day: 10.0 alcohol intake: never substance use type: does not use ROS Constitutional Constitutional: Denies body ache(s), change in weight or fever(s) Eyes Eyes: Denies acute decrease in peripheral vision, change in eye color or change in vision ENT HEENT: Denies abnormal hearing, bleeding gums or dysphagia Cardiovascular Cardiovascular: Denies abdominal bloating, abdominal edema or bluish discoloration of hand/feet Respiratory/Chest Respiratory/Chest: Denies change in mental status, change in phlegm color or difficulty clearing secretions Gastrointestinal Gastrointestinal: Denies anorexia, belching or coffee ground emesis Physical Exam Narrative Vascular: Dorsalis pedis posterior tibial pulses palpable to bilateral feet. Diffuse edema noted bilaterally Neurologic: Light touch protective sensation diminished to bilateral feet. Dermatologic: Full-thickness wound to plantar left heel with a stable clean granular base and clean skin edges. Stable right foot wound to plantar medial arch. Full-thickness wound to posterior left calf with deep probing and diffuse undermining. Significant periwound erythema edema and warmth. Moderate drainage noted. Musculoskeletal: No gross wound forming deformity noted. Muscular strength full bilaterally. Lab / Micro Data 11/02/23 14:55 11/03/23 08:25 Labs: Laboratory Results - last 24 hr 11/02/23 14:55: WBC 8.2, RBC 3.84 L, Hgb 11.6 L, Hct 36.5 L, MCV 95.1, MCH 30.2, MCHC 31.8 L, RDW Std Deviation 48.1 H, RDW Coeff of Luciano 13.9, Plt Count 137 L, MPV 10.8, Immature Gran % (Auto) 0.400, Neut % (Auto) 81.2 H, Lymph % (Auto) 12.4 L, [place] % (Auto) 5.0, Eos % (Auto) 0.6, Baso % (Auto) 0.4, Absolute Neuts (auto) 6.6, Absolute Lymphs (auto) 1.01, Nucleated RBC % 0, Sodium 134 L, Potassium 3.6, Chloride 96 L, Carbon Dioxide 30.0, Anion Gap 8, BUN 41 H, Creatinine 4.39 H, Est GFR (MDRD) Af Amer 14 L, Est GFR (MDRD) Non-Af 12 L, BUN/Creatinine Ratio 9.3 L, Glucose 256 H, Calcium 9.0, Phosphorus 4.1, Magnesium 2.1, Total Bilirubin 0.50, AST 15, ALT 17, Alkaline Phosphatase 184 H, Total Protein 6.8, Albumin 2.0 L, Globulin 4.8 H, Albumin/Globulin Ratio 0.4 L, Serum , Qual NEGATIVE 11/02/23 17:15: Urine Color Yellow, Urine Clarity Clear, Urine pH 6.0, Ur Specific [place] 1.010, Urine Protein 100 H, Urine Glucose (UA) 50 H, Urine Ketones Negative, Urine Occult Blood 50 H, Urine Nitrite Negative, Urine Bilirubin Negative, Urine Urobilinogen Normal, Ur Leukocyte Esterase 25 H, Urine RBC 0-5 SEEN, Urine WBC 0-5 SEEN, Ur Squamous Epith Cells 5-10 SEEN, Urine Bacteria 1+, Hyaline Casts 0-5 SEEN, Urine Mucus 0 SEEN 11/02/23 20:58: POC Glucose 238 H 11/03/23 06:15: POC Glucose 243 H 11/03/23 08:25: Sodium 133 L, Potassium 3.9, Chloride 101, Carbon Dioxide 25.0, Anion Gap 7, BUN 41 H, Creatinine 4.38 H, Estim Creat Clear Calc 25.73, Est GFR (MDRD) Af Amer 14 L, Est GFR (MDRD) Non-Af 12 L, BUN/Creatinine Ratio 9.4 L, Glucose 197 H, Calcium 8.1 L, Total Bilirubin 0.30, AST 15, ALT 14, Alkaline Phosphatase 149 H, Total Protein 5.7 L, Albumin 1.6 L, Globulin 4.1, Albumin/Globulin Ratio 0.4 L Micro: Microbiology 11/02/23 20:51 Wound - Leg, Left Skin and Soft Tissue MRSA/MSSA (PCR - Final Imaging Radiology Impression Lower Extremity CTA 11/02/23 15:50 IMPRESSION: Atherosclerotic changes without evidence for hemodynamically significant stenosis with patent three-vessel runoff to the level of the ankle.. There is cellulitis of the calf with most severe involvement of the posterior medial aspect. There is a very small phlegmonous lesion containing tiny air bubbles possibly due to gangrenous changes. There is no well-defined abscess or evidence for acute osteomyelitis Electronically Signed: Jeffry Bernardo MD at 16:53 EDT ,
[2023-11-03] MEDS: Ferrous Sulfate 325 MG Tablet PO (09:31)
[2023-11-03] MEDS: Famotidine 20 MG Tablet PO ×2 (09:31→22:11)
[2023-11-03] MEDS: Pantoprazole Sodium 40 MG Tablet PO (09:31)
[2023-11-03] MEDS: Lisinopril 20 MG Tablet PO (09:32)
[2023-11-03] MEDS: Metoprolol(XL)Succ 50 MG Tablet PO (09:32)
[2023-11-03] MEDS: Heparin Injection (Vial) 5,000 UNIT/ML VIAL 5000 UNIT SC ×2 (09:57→22:10)
--- NOTE | 2023-11-03 10:23 | CON.PCM.ID_ITS ---
Assessment & Plan Assessment/Plan (1) ESRD (end stage renal disease): (2) Cellulitis of left lower limb: PLAN: LLE wound infection with surrounding cellulitis - 10/07/23 wound cx with [facility]. Patient has two hospital accounts under the same name which is why recent lab work and wound care visits are not visible in her current chart. Wound cx here is pending. Had been on outpt doxy/keflex. Will cover with vanc/ceftriaxone. Wbc normal here. ESRD, neph consulted Will follow, thank you HPI Consult Data Date of Consult: 11/03/23 HPI Narrative Reason for Consultation: wound infection HPI Narrative: ANEESH HALL, is a 42 F with ESRD, chronic edema, presented with several weeks worsening L calf wound. Started after a fall about a month ago. Referred to wound center here and saw Dr. Maguire. 10/07/23 wound cx with [facility]. Given course of doxy/keflex with minimal improvement, started on another round. Had several days increased pain, redness, and some new fever/chills. Came to ED, admitted on vanc/zosyn. Full ROS performed and neg except as noted above. FORMERLY [facility] Medical History Hypothyroidism Allergic rhinitis Chronic acquired lymphedema Morbid obesity Chronic anemia ESRD (end stage renal disease) on dialysis History of renal cell cancer Chronic painful diabetic neuropathy IDDM (insulin dependent diabetes mellitus) Tobacco use Mood disorder Anxiety and depression Sleep apnea COPD (chronic obstructive pulmonary disease) Asthma Home Medications ?Medication ?Instructions ?Recorded ?Last Taken ?Type atorvastatin 40 mg tablet 40 mg PO QHS HLD 11/02/23 Unknown History bumetanide 2 mg tablet 2 mg PO TID HTN, edema 11/02/23 Unknown History famotidine 20 mg tablet 20 mg PO BID GERD 11/02/23 Unknown History ferrous sulfate 325 mg (65 mg 325 mg PO DAILY Fe deficiency 11/02/23 Unknown History iron) tablet (FeroSul) anemia gabapentin 100 mg capsule 200 mg PO TID DM neuropathy 11/02/23 Unknown History glipizide 10 mg tablet 20 mg PO BID DM 11/02/23 Unknown History insulin aspart U-100 100 unit/mL subcut ISS DM 11/02/23 Unknown History subcutaneous solution insulin glargine 100 unit/mL (3 30 unit subcut QHS DM 11/02/23 Unknown History mL) subcutaneous pen (Lantus Solostar U-100 Insulin) levothyroxine 25 mcg tablet 25 mcg PO DAILY Hypothyroidism 11/02/23 Unknown History lisinopril 20 mg tablet 20 mg PO DAILY HTN 11/02/23 Unknown History metoprolol succinate 50 mg 50 mg PO DAILY HTN 11/02/23 Unknown History tablet,extended release 24 hr montelukast 10 mg tablet 10 mg PO QHS Allergic rhinitis 11/02/23 Unknown History nifedipine 30 mg tablet,extended 30 mg PO HTN 11/02/23 Unknown History release pantoprazole 40 mg tablet,delayed 40 mg PO DAILY GERD 11/02/23 Unknown History release quetiapine 25 mg tablet 25 mg PO QHS 11/02/23 Unknown History Anxiety/Depression/Mood disorder Allergy/AdvReac Type Severity Reaction Status Date / Time bee venom protein (honey Allergy Severe Anaphylaxis Verified 11/02/23 13:29 bee) (bee stings) clindamycin Allergy Severe Hives Verified 11/02/23 13:29 metformin AdvReac Intermediate Diarrhea Verified 11/02/23 13:29 dulaglutide (From Trulicity) AdvReac Mild Constipatio Verified 11/02/23 13:29 n Family History Mother Diabetes Father Cancer Hx Lung, Rectal cancer. COPD (chronic obstructive pulmonary disease) Diabetes Surgical History S/P foot surgery, left H/O partial nephrectomy Social History household members: family Smoking Status: Current every day smoker tobacco type: cigarettes Smoking packs per day: 0.5 Smoking cigarettes per day: 10.0 alcohol intake: never substance use type: does not use Physical Exam Const alert, oriented x3 and no apparent distress General Appearance: cooperative HEENT normocephalic and head/scalp atraumatic Eyes PERRL and EOMs intact bilaterally Neck supple and No nodes Resp normal air movement and clear to auscultation bilaterally Cardio regular rate and regular rhythm GI soft to palpation, non-tender and non-distended Extremity General Extremity: edema Skin Skin Narrative: reviewed wound photos Neuro CN's II-XII intact bilaterally Lab / Micro Data Attestation: I reviewed the patient's lab results. 11/02/23 14:55 11/03/23 08:25 Labs: Laboratory Results - last 24 hr 11/02/23 14:55: WBC 8.2, RBC 3.84 L, Hgb 11.6 L, Hct 36.5 L, MCV 95.1, MCH 30.2, MCHC 31.8 L, RDW Std Deviation 48.1 H, RDW Coeff of Luciano 13.9, Plt Count 137 L, MPV 10.8, Immature Gran % (Auto) 0.400, Neut % (Auto) 81.2 H, Lymph % (Auto) 12.4 L, [place] % (Auto) 5.0, Eos % (Auto) 0.6, Baso % (Auto) 0.4, Absolute Neuts (auto) 6.6, Absolute Lymphs (auto) 1.01, Nucleated RBC % 0, Sodium 134 L, Potassium 3.6, Chloride 96 L, Carbon Dioxide 30.0, Anion Gap 8, BUN 41 H, C reatinine 4.39 H, Est GFR (MDRD) Af Amer 14 L, Est GFR (MDRD) Non-Af 12 L, B UN/Creatinine Ratio 9.3 L, Glucose 256 H, Calcium 9.0, Phosphorus 4.1, Magnesium 2.1, Total Bilirubin 0.50, AST 15, ALT 17, Alkaline Phosphatase 184 H, Total Protein 6.8, Albumin 2.0 L, Globulin 4.8 H, Albumin/Globulin Ratio 0.4 L, Serum , Qual NEGATIVE 11/02/23 17:15: Urine Color Yellow, Urine Clarity Clear, Urine pH 6.0, Ur Specific [place] 1.010, Urine Protein 100 H, Urine Glucose (UA) 50 H, Urine Ketones Negative, Urine Occult Blood 50 H, Urine Nitrite Negative, Urine Bilirubin Negative, Urine Urobilinogen Normal, Ur Leukocyte Esterase 25 H, Urine RBC 0-5 SEEN, Urine WBC 0-5 SEEN, Ur Squamous Epith Cells 5-10 SEEN, Urine Bacteria 1+, Hyaline Casts 0-5 SEEN, Urine Mucus 0 SEEN 11/02/23 20:58: POC Glucose 238 H 11/03/23 06:15: POC Glucose 243 H 11/03/23 08:25: Sodium 133 L, Potassium 3.9, Chloride 101, Carbon Dioxide 25.0, Anion Gap 7, BUN 41 H, Creatinine 4.38 H, Estim Creat Clear Calc 25.73, Est GFR (MDRD) Af Amer 14 L, Est GFR (MDRD) Non-Af 12 L, BUN/Creatinine Ratio 9.4 L, G lucose 197 H, Calcium 8.1 L, Total Bilirubin 0.30, AST 15, ALT 14, Alkaline Phosphatase 149 H, Total Protein 5.7 L, Albumin 1.6 L, Globulin 4.1, A lbumin/Globulin Ratio 0.4 L Micro: Microbiology 11/02/23 20:51 Wound - Leg, Left Skin and Soft Tissue MRSA/MSSA (PCR - Final Imaging Radiology Impression Lower Extremity CTA 11/02/23 15:50 IMPRESSION: Atherosclerotic changes without evidence for hemodynamically significant stenosis with patent three-vessel runoff to the level of the ankle.. There is cellulitis of the calf with most severe involvement of the posterior medial aspect. There is a very small phlegmonous lesion containing tiny air bubbles possibly due to gangrenous changes. There is no well-defined abscess or evidence for acute osteomyelitis Electronically Signed: Jeffry Bernardo MD at 16:53 EDT ,
--- NOTE | 2023-11-03 11:15 | PCM.CONS.R ---
Assessment & Plan Assessment/Plan (1) ESRD (end stage renal disease): PLAN: On hemodialysis., Thursday, , Thursday schedule. Will arrange for dialysis today. 4 hours. UF 2 to 3 L. Left lower extremity cellulitis. ID on consult. HPI Consult Data Date of Consult: 11/03/23 HPI Narrative Reason for Consultation: ESRD HPI Narrative: ANEESH HALL, is a 42 F who presents to the hospital with left lower extremity cellulitis. Nephrology on consultation in view of ESRD. Currently on hemodialysis Thursday, , Thursday schedule. Last dialysis was Thursday. She sees Dr. Choi in [place]. For access she has a right IJ tunneled dialysis catheter. Was seeing Dr. Maguire for lower extremity cellulitis, came in because of worsening symptoms. FORMERLY [facility], [facility] Medical History Hypothyroidism Allergic rhinitis Chronic acquired lymphedema Morbid obesity Chronic anemia ESRD (end stage renal disease) on dialysis History of renal cell cancer Chronic painful diabetic neuropathy IDDM (insulin dependent diabetes mellitus) Tobacco use Mood disorder Anxiety and depression Sleep apnea COPD (chronic obstructive pulmonary disease) Asthma Home Medications ?Medication ?Instructions ?Recorded ?Last Taken ?Type atorvastatin 40 mg tablet 40 mg PO QHS HLD 11/02/23 Unknown History bumetanide 2 mg tablet 2 mg PO TID HTN, edema 11/02/23 Unknown History famotidine 20 mg tablet 20 mg PO BID GERD 11/02/23 Unknown History ferrous sulfate 325 mg (65 mg 325 mg PO DAILY Fe deficiency 11/02/23 Unknown History iron) tablet (FeroSul) anemia gabapentin 100 mg capsule 200 mg PO TID DM neuropathy 11/02/23 Unknown History glipizide 10 mg tablet 20 mg PO BID DM 11/02/23 Unknown History insulin aspart U-100 100 unit/mL subcut ISS DM 11/02/23 Unknown History subcutaneous solution insulin glargine 100 unit/mL (3 30 unit subcut QHS DM 11/02/23 Unknown History mL) subcutaneous pen (Lantus Solostar U-100 Insulin) levothyroxine 25 mcg tablet 25 mcg PO DAILY Hypothyroidism 11/02/23 Unknown History lisinopril 20 mg tablet 20 mg PO DAILY HTN 11/02/23 Unknown History metoprolol succinate 50 mg 50 mg PO DAILY HTN 11/02/23 Unknown History tablet,extended release 24 hr montelukast 10 mg tablet 10 mg PO QHS Allergic rhinitis 11/02/23 Unknown History nifedipine 30 mg tablet,extended 30 mg PO HTN 11/02/23 Unknown History release pantoprazole 40 mg tablet,delayed 40 mg PO DAILY GERD 11/02/23 Unknown History release quetiapine 25 mg tablet 25 mg PO QHS 11/02/23 Unknown History Anxiety/Depression/Mood disorder Allergy/AdvReac Type Severity Reaction Status Date / Time bee venom protein (honey Allergy Severe Anaphylaxis Verified 11/02/23 13:29 bee) (bee stings) clindamycin Allergy Severe Hives Verified 11/02/23 13:29 metformin AdvReac Intermediate Diarrhea Verified 11/02/23 13:29 dulaglutide ([facility] AdvReac Mild Constipatio Verified 11/02/23 13:29 n Family History Mother Diabetes Father Cancer Hx Lung, Rectal cancer. COPD (chronic obstructive pulmonary disease) Diabetes Surgical History S/P foot surgery, left H/O partial nephrectomy Social History household members: family Smoking Status: Current every day smoker tobacco type: cigarettes Smoking packs per day: 0.5 Smoking cigarettes per day: 10.0 alcohol intake: never substance use type: does not use ROS ROS Narrative Negative except above Physical Exam Narrative Alert awake oriented x 3 no obvious distress no pallor no icterus no JVD s1s2 no murmurs lungs clear abdomen soft no organomegaly no edema no cyanosis Lab / Micro Data 11/02/23 14:55 11/03/23 08:25 Labs: Laboratory Results - last 24 hr 11/02/23 14:55: WBC 8.2, RBC 3.84 L, Hgb 11.6 L, Hct 36.5 L, MCV 95.1, MCH 30.2, MCHC 31.8 L, RDW Std Deviation 48.1 H, RDW Coeff of Luciano 13.9, Plt Count 137 L, MPV 10.8, Immature Gran % (Auto) 0.400, Neut % (Auto) 81.2 H, Lymph % (Auto) 12.4 L, [place] % (Auto) 5.0, Eos % (Auto) 0.6, Baso % (Auto) 0.4, Absolute Neuts (auto) 6.6, Absolute Lymphs (auto) 1.01, Nucleated RBC % 0, Sodium 134 L, Potassium 3.6, Chloride 96 L, Carbon Dioxide 30.0, Anion Gap 8, BUN 41 H, Creatinine 4.39 H, Est GFR (MDRD) Af Amer 14 L, Est GFR (MDRD) Non-Af 12 L, BUN/Creatinine Ratio 9.3 L, Glucose 256 H, Calcium 9.0, Phosphorus 4.1, Magnesium 2.1, Total Bilirubin 0.50, AST 15, ALT 17, Alkaline Phosphatase 184 H, Total Protein 6.8, Albumin 2.0 L, Globulin 4.8 H, Albumin/Globulin Ratio 0.4 L, Serum , Qual NEGATIVE 11/02/23 17:15: Urine Color Yellow, Urine Clarity Clear, Urine pH 6.0, Ur Specific [place] 1.010, Urine Protein 100 H, Urine Glucose (UA) 50 H, Urine Ketones Negative, Urine Occult Blood 50 H, Urine Nitrite Negative, Urine Bilirubin Negative, Urine Urobilinogen Normal, Ur Leukocyte Esterase 25 H, Urine RBC 0-5 SEEN, Urine WBC 0-5 SEEN, Ur Squamous Epith Cells 5-10 SEEN, Urine Bacteria 1+, Hyaline Casts 0-5 SEEN, Urine Mucus 0 SEEN 11/02/23 20:58: POC Glucose 238 H 11/03/23 06:15: POC Glucose 243 H 11/03/23 08:25: Sodium 133 L, Potassium 3.9, Chloride 101, Carbon Dioxide 25.0, Anion Gap 7, BUN 41 H, Creatinine 4.38 H, Estim Creat Clear Calc 25.73, Est GFR (MDRD) Af Amer 14 L, Est GFR (MDRD) Non-Af 12 L, BUN/Creatinine Ratio 9.4 L, Glucose 197 H, Calcium 8.1 L, Total Bilirubin 0.30, AST 15, ALT 14, Alkaline Phosphatase 149 H, Total Protein 5.7 L, Albumin 1.6 L, Globulin 4.1, Albumin/Globulin Ratio 0.4 L Micro: Microbiology 11/02/23 20:51 Wound - Leg, Left Skin and Soft Tissue MRSA/MSSA (PCR - Final Imaging Radiology Impression Lower Extremity CTA 11/02/23 15:50 IMPRESSION: Atherosclerotic changes without evidence for hemodynamically significant stenosis with patent three-vessel runoff to the level of the ankle.. There is cellulitis of the calf with most severe involvement of the posterior medial aspect. There is a very small phlegmonous lesion containing tiny air bubbles possibly due to gangrenous changes. There is no well-defined abscess or evidence for acute osteomyelitis Electronically Signed: Jeffry Bernardo MD at 16:53 EDT ,
--- NOTE | 2023-11-03 11:37 | CASEMGMT ---
Addendum entered by Nidia Duffy 11/03/23 12:01: 6 clicks=15, therapy ordered for pt. DC medical services assistant called and pt is active with SN. Requested dc instructions be faxed to [facility] Attjosiah Almaraz at [phone]. Original Note: RN FREDY Assessment: Face to Face with pt for initial transition planning/care coordination assessment. RN CM introduced self and role at [facility], pt voices understanding and consents to assessment. Pt is A&O x4 and answers all questions appropriately at this time. Pt sitting up in bed with niece at bedside and nurse present in room. Pt agreeable to assessment with neice present. Care providers, pharmacy, and demographics verified/updated. Admitting Dx: LLE cellulitis, recent abscess PCP:Areli Kincaid Specialists:Jimbo nephro; Andrez, pod; [facility] weekly on Wednesdays Preferred Pharmacy: [facility] [place] Insurance: [facility] Prescription Benefit: yes LNOK: Luis Know, sig other Living Arrangements: Pt lives with sig other and 2 children (one is 18 and the other is 16 and is incarcerated) in a two story home with FFSU and a ramp to enter. Pt reports she needs assistance with all ADL and IADL's. She states her sig other assists her and is her paid aide. Pt denies concerns at home. Transportation: Pt does not drive. Pt uses [employer] or has friends transport her to medical appts. DME:[employer]ex[employer], insulin, needles with sufficient supplies, FWW, cane, CHC, shower chair HHC/SNF: Pt states she is active with [facility] and [facility]. SN comes twice a week and she sees C weekly, no need for dressing changes in between visits. DC medical services assistant to confirm the [facility] is active and disciplines. Pt denies SNF stays. Pt states no concerns with going home at time of dc. Pt would like to resume her HHC upon dc and does not want a list of other options. Pt has dialysis T// in [place] with a chair time of 11:15am. ID is following pt. Pt states no further concerns/needs. CM to follow. Advised pt to ask CM if any further question/concerns/needs arise, voices understanding. Pt Goal: Home with HHC resuming Plan: Home with HHC resuming Yamileth BURK CM
[2023-11-03] MEDS: Ceftriaxone 2 GM in 0.9% Normal Saline (50mL MB+) 50 ML IV (11:39)
[2023-11-03 12:06] LABS: Bedside Glucose 198 mg/dL (74-106)
--- NOTE | 2023-11-03 12:41 | PCM.RX.CS ---
Consult Antibiotic Management Pharmacy has been consulted to manage selected antibiotic: Vancomycin Type of Intervention Type of Consult: Follow-up Suspected Infection Suspected Infection: Skin/Soft tissue Prior Doses of Antibiotics Prior Doses of Antibiotics Received/Current Regimen: received vanc 2000mg IV x1 last night at 18:46 Labs Labs: Sodium 133 mmol/L (136-145) L 11/03/23 08:25 Potassium 3.9 mmol/L (3.5-5.1) 11/03/23 08:25 Chloride 101 mmol/L (98-107) 11/03/23 08:25 Carbon Dioxide 25.0 mmol/L (21.0-32.0) 11/03/23 08:25 Anion Gap 7 (5-15) 11/03/23 08:25 BUN 41 mg/dL (7-18) H 11/03/23 08:25 Creatinine 4.38 mg/dL (0.55-1.02) H 11/03/23 08:25 Est GFR (MDRD) Af Amer 14 mL/min (>60) L 11/03/23 08:25 Est GFR (MDRD) Non-Af 12 mL/min (>60) L 11/03/23 08:25 BUN/Creatinine Ratio 9.4 RATIO (10-20) L 11/03/23 08:25 Glucose 197 mg/dL (74-106) H 11/03/23 08:25 Microbiology Microbiology: Microbiology 11/02/23 08:00 Abs - Leg Gram Stain - Final 11/02/23 20:51 Wound - Leg, Left Skin and Soft Tissue MRSA/MSSA (PCR - Final Dosing Weight Weight used for dosin kg Estimated Creatinine Clearance Estimated Creatinine Clearance: on HD Goal Trough Goal Trough: 15-20 mcg/mL Pharmacy Plan for Drug Dosing Pharmacy Plan for Drug Dosing: The patient is receiving hemodialysis today so per [facility] vanc dosing protocol for HD patients will schedule a 2nd dose of vancomycin tonight after dialysis is done. This dose will be 1000mg IV x1 which is based on the patient's weight. Subsequent doses after tonight's dose will be based on pre-dialysis random vanc levels, the first of which will be on before HD (the patient gets HD //Thu). Pharmacy Service will continue to monitor and adjust dosing as required. Follow-Up Labs Follow-Up Labs: Trough: Vancomycin (random pre-HD) Date/Time Labs Ordered Labs to be done on [date and time ordered]: 11/05/23 0600
[2023-11-03 14:43] LABS: Absolute Lymphocyte Count 0.67 X10^3/uL (0.83-4.51); Absolute Neutrophil Count 2.6 X10^3/uL (2.0-7.7); Basophil# 0.02 X10^3/uL; Basophil% 0.5 % (0-1); Eosinophil# 0.18 X10^3/uL; Eosinophils% 4.9 % (0-5); Hematocrit 31.8 % (37-47); Lymphocyte # 0.67 X10^3/ul (0.83-4.51); Lymphocyte % 18.1 % (19-41); Mean Corp Hgb Conc 31.4 g/dL (32-36); Mean Corpuscular Hgb 30.2 pg (27.0-32.0); Mean Corpuscular Volume 96.1 fL (81-99); Mean Platelet Vol. 11.3 fl (6.2-12.0); Monocyte# 0.21 X10^3/uL; Monocyte% 5.7 % (0-10); NRBC Flagged by Analyzer 0 % (0-5); Neutrophil # 2.62 X10^3/uL (2.7-7.7); Neutrophil % 70.5 % (47-70); Platelet Count 105 K/mm3 (150-450); RBC Distribution Width CV 13.8 % (11.6-14.6); RBC Distribution Width SD 48.5 fl (35.1-43.9); Red Blood Count 3.31 M/mm3 (4.2-5.4); White Blood Count 3.7 K/mm3 (4.4-11.0)
[2023-11-03] MEDS: Heparin 10,000 UNITS/10 ML Vial IV (16:41)
[2023-11-03] MEDS: PureFlow B 2K Dialysis Soln 1 BAG 6 BAG PF (16:41)
[2023-11-03] MEDS: 0.9% Saline Lock 10 ML Syringe IV (16:41)
[2023-11-03] MEDS: 0.9% Normal Saline 1,000 ML IV.SOLN. 1000 ML OPERA.SITE (16:41)
[2023-11-03 17:19] LABS: Bedside Glucose 151 mg/dL (74-106)
[2023-11-03 17:26] LABS: Hemoglobin A1c 8.5 % (3.8-5.6)
[2023-11-03] MEDS: Vancomycin IV 1,000 MG/200 ML BAG 200 MG IV (19:04)
[2023-11-03] MEDS: Atorvastatin Calcium 40 MG Tablet PO (22:11)
[2023-11-03] MEDS: Insulin Glargine-YFGN 100 UNIT/ML Pen 30 UNIT SC (22:11)
[2023-11-03] MEDS: Montelukast 10 MG Tablet PO (22:12)
[2023-11-03] MEDS: QUEtiapine 25 MG Tablet PO (22:15)
[2023-11-04] VITALS (22 sets, daily range): BP systolic 81–122; BP diastolic 60–95; PULSE 80–90; RESP 16–20; TEMP 35.5–36.6; O2SAT 90–100; BMI 62.3
[2023-11-04 01:03] LABS: Bedside Glucose 209 mg/dL (74-106)
[2023-11-04 06:15] LABS: Bedside Glucose 168 mg/dL (74-106)
[2023-11-04] MEDS: Budesonide Respules 0.5 MG/2 ML AMPUL.NEB. INHALATION (07:32)
[2023-11-04] MEDS: Pantoprazole Sodium 40 MG Tablet PO (07:43)
[2023-11-04] MEDS: Metoprolol(XL)Succ 50 MG Tablet PO (07:43)
[2023-11-04] MEDS: Famotidine 20 MG Tablet PO (07:43)
--- NOTE | 2023-11-04 08:39 | WOUNDNOTE ---
Pt going to surgery today. so will leave dressing in place. patient denies much pain this am. will continue to follow.
[2023-11-04] MEDS: Ceftriaxone 2 GM in 0.9% Normal Saline (50mL MB+) 50 ML IV (09:36)
--- NOTE | 2023-11-04 09:59 | PN_ITS ---
Subjective Subjective Patient seeen and examined. Her pain was well controlled. She denied any fever, chills, cough, chest pain, palpitations, dizziness, nausea, vomiting or any other symptoms. Review of systems is otherwise negative. She has remained hemodynamically stable. She is currently NPO, awaiting debridement of her left lower extremity wound with delayed primary closure today. Objective Data Objective Data Vital Signs: Vital Signs Temp Pulse Resp BP Pulse Ox O2 Del Method O2 Flow Rate 97.9 F 83 18 115/75 95 Nasal Cannula 2 11/04/23 07:59 11/04/23 08:03 11/04/23 08:03 11/04/23 07:59 11/04/23 08:03 11/04/23 08:03 11/04/23 08:03 Oxygen Flow Rate (L/min) 2 Oxygen Delivery Method Nasal Cannula Weight: 365 lb 1.368 oz Body Mass Index (BMI) 62.3 Intake & Output: Intake and Output for Last 24 Hours 11/02/23 11/03/23 11/04/23 23:59 23:59 23:59 Intake Total 1140 / 1390 2680 / 2880 200 / 200 Output Total 2580 / 2580 Balance 1140 / 1390 100 / 300 200 / 200 Lab / Micro Data 11/03/23 13:30 11/03/23 08:25 Labs: Laboratory Results - last 24 hr 11/03/23 08:25: TSH 5.80 H 11/03/23 11:43: POC Glucose 198 H 11/03/23 13:30: WBC 3.7 L, RBC 3.31 L, Hgb 10.0 L, Hct 31.8 L, MCV 96.1, MCH 30.2, MCHC 31.4 L, RDW Std Deviation 48.5 H, RDW Coeff of Luciano 13.8, Plt Count 105 L, MPV 11.3, Immature Gran % (Auto) 0.300, Neut % (Auto) 70.5 H, Lymph % (Auto) 18.1 L, [place] % (Auto) 5.7, Eos % (Auto) 4.9, Baso % (Auto) 0.5, Absolute Neuts (auto) 2.6, Absolute Lymphs (auto) 0.67 L, Nucleated RBC % 0, Hemoglobin A1c 8.5 H 11/03/23 16:47: POC Glucose 151 H 11/03/23 22:07: POC Glucose 209 H 11/04/23 05:56: POC Glucose 168 H Micro: Microbiology 11/02/23 08:00 Abs - Leg Gram Stain - Final 11/02/23 20:51 Wound - Leg, Left Skin and Soft Tissue MRSA/MSSA (PCR - Final Radiography Diagnostic Testing: Radiology Impression Lower Extremity MRI 11/03/23 09:30 IMPRESSION: Skin thickening with focal wound and subcutaneous edema. No abscess or fluid collection. No evidence of osteomyelitis. Electronically Signed: Adriel Hobbs MD at 19:42 EDT Reading Location ID and State: [id number] [place] [address] , Service support , Venous Doppler Study 11/03/23 09:30 Interpretation Summary Deep veins of the bilateral lower extremities are patent and compressible segmentally. There is no evidence of bilateral lower extremity deep vein thrombosis. The bilateral great saphenous veins appear patent and compressible segmentally. Ordering Physician: Jesse Perez Referring Physician: Areli Kincaid Performed By: Gaston Scott, Fred Physical Exam Const alert, oriented x3 and no apparent distress Constitutional Narrative: super morbid obesity General Appearance: cooperative and well developed HEENT normocephalic, head/scalp atraumatic, moist oral mucous membranes and oropharynx normal Eyes PERRL and EOMs intact bilaterally Neck no lymphadenopathy, supple and no JVD Lymph Lymphatic: no lymphadenopathy noted and no lymphedema noted Resp normal respiratory effort, normal air movement and clear to auscultation bilaterally Cardio regular rate, regular rhythm, S1 normal heart sound, S2 normal heart sound and no murmurs GI normal to inspection, nondistended, normoactive bowel sounds, soft to palpation, non-tender and non-distended GI Narrative: obese abdomen Extremity Extremity Narrative: LLE wrapped in bandage Skin Skin Narrative: as under extremities Neuro CN's II-XII intact bilaterally, no focal motor deficits and deep tendon reflexes 2+ bilaterally Motor Exam: strength 5/5 throughout and general weakness Psych thought process normal and cooperative Appearance: appropriate Assessment & Plan Assessment/Plan (1) Cellulitis of left lower limb: (2) ESRD (end stage renal disease): PLAN: Plan #Cellulitis of hte LLE * failed outpatient therapy * ID and podiatry on board * for debridement of LLE today * on IV vancomycin and ceftriaxone * #Pancytopenia: * Hemoglobin is 10 with platelets of 105 and WBC of 3.7. Etiology is not very clear. * Platelets were 137 yesterday and down to 105 today. * Will continue monitoring closely and if it drops further consider discontinuing heparin. * #Type 2 diabetes mellitus:A1C is 8.5. On Lantus 30 units nightly as well as glipizide. Insulin sliding scale. Accu-Cheks ACHS. #Hypertension: On metoprolol and lisinopril #Hypothyroidism: on synthroid #Hyperlipidemia: On statin #ESRD: on HD Tuesdays, and Saturdays. Nephrology on board. #JOHNY: noncompliant with her CPAP. Counseled to comply with CPAP #Super morbid obesity: BMi is 62.7. Complicates acute care, expected recovery and prognosis DVT prophylaxis: On heparin 5000 units every 12. Will switch to every 8 in light of his morbid obesity. Charges/Coding Visit Charges Inpatient E&M: 18128 Subs Hosp L3
--- NOTE | 2023-11-04 11:06 | PCM.PN.ID ---
ID ID: Route of nutrition/ use of supplements: [] Nutritional Intake: [] IV Site: [] Serrano Catheter: [] Patient alert overall clinically stable. No specific complaints. No nausea vomiting or any diarrhea. Currently on vancomycin plus ceftriaxone empirically. Microbiology data reviewed. No fevers. On exam she is alert and responsive does not appear toxic. Vital signs reviewed. Right chest dialysis catheter in place heart exam S1-S2 abdomen obese but soft. Both lower extremities dressings in place Assessment & Plan Assessment/Plan (1) Cellulitis of left lower limb: PLAN: Continue empiric antibiotic therapy in the form of vancomycin plus ceftriaxone for now. Plan for further surgery of the left leg later today.
[2023-11-04 11:19] LABS: Partial Thromboplast Time 23.9 Seconds (24.1-36.2)
[2023-11-04 11:20] LABS: Bedside Glucose 159 mg/dL (74-106)
[2023-11-04 11:33] LABS: Internal QC Validated? YES +Cl - CLEAR BKGD; Pregnancy, Serum, hCG Quali. NEGATIVE Negative
--- NOTE | 2023-11-04 12:12 | PRE.ANES_ITS ---
ASA Classification* ASA Classification ASA Classification: 3 Assessment & Plan Anesthesia* Anesthesia Assessment Anesthesia Assessment: Discussed sedation and/or anesthesia options, risks, benefits, and alternatives with patient/parents/legal guardian/POA. Questions invited. The patient/parents/legal guardian/POA seems to understand and agrees to proceed with anesthesia plan. Reviewed the physical assessment, medical history, allergy history and patient home medications list prior to surgery/procedure/anesthetic and documented any changes. Performed airway and anesthesia risk assessments. Anesthesia Type Anesthesia Type: MAC (General as backup only.) History Source History Obtained from:: Patient and Chart Anesthesia Focused Assessment* Temperature: 97.9 F Pulse Rate: 83 Blood Pressure: 115/75 Respiratory Rate: 18 Pulse Ox: 96 Oxygen Delivery Method: Room Air Airway Assessment Mouth opens: >3 cm Mallampati Score: I Teeth Condition: Chipped/Broken (Multiple chipped and broken. Poor dentition.) and Missing (Multiple missing) Neck Range of motion (ROM): Limited ROM (Slightly limited extension) Pertinent Findings EKG Pertinent Findings:: November 04, 2023. Normal sinus rhythm. Focused Labs Anesthesia Preop lab: CBC WBC 3.7 K/mm3 (4.4-11.0) L 11/03/23 13:30 RBC 3.31 M/mm3 (4.2-5.4) L 11/03/23 13:30 Hgb 10.0 g/dL (12.0-15.0) L 11/03/23 13:30 Hct 31.8 % (37-47) L 11/03/23 13:30 Plt Count 105 K/mm3 (150-450) L 11/03/23 13:30 CHEMISTRY Potassium 3.9 mmol/L (3.5-5.1) 11/03/23 08:25 Sodium 133 mmol/L (136-145) L 11/03/23 08:25 Magnesium 2.1 mg/dL (1.6-2.6) 11/02/23 14:55 Phosphorus 4.1 mg/dL (2.5-4.9) 11/02/23 14:55 BUN 41 mg/dL (7-18) H 11/03/23 08:25 Creatinine 4.38 mg/dL (0.55-1.02) H 11/03/23 08:25 Glucose 197 mg/dL (74-106) H 11/03/23 08:25 POC Glucose 159 mg/dL (74-106) H 11/04/23 10:59 TSH 5.80 uIU/mL (0.358-3.74) H 11/03/23 08:25 COAG Pre-Assessment Diagnosis/Proposed Procedure Planned Operative Procedure(s): Left leg wound debridement with delayed primary closure. Anesthesia History Anesthesia History - certified professional ergonomist: Anesthesia History - certified professional ergonomist Hx Hospitalization Any Problems With Anesthesia No 11/03/23 20:37 Cholinesterase deficiency No 11/03/23 20:37 You/Your Family Experience No 11/03/23 20:37 fever (hyperthermia) with Relationship Recent Exposure to Contagious No 11/03/23 20:37 Disease Does patient have nerve No 11/03/23 20:37 stimulator Patient instructed to have No 11/03/23 20:37 device shut off --Does patient have Pacemaker No 11/04/23 10:32 or ICD? When Was Last Pacemaker Check QUESTION #4 FULL TEXT: You/Your Family Experience fever (hyperthermia) with Anesthesia Last Oral Intake Last Oral intake: Last Oral Intake NPO since 23:55 11/04/23 10:32 Meds taken in AM with sips of Yes 11/04/23 10:32 water? Meds patient instructed to 0900 metoprolol, pepcid and 11/04/23 10:32 take am of surgery protonix PONV PONV - certified professional ergonomist: PONV - certified professional ergonomist Female HX of Motion Sickness HX of N/V After Surgery Non-Smoker Duration of Surgery greater than 60 minutes Number of Risk Factors PONV Score Height & Weight Height & Weight: Anesthesia: Height & Weight Height 5 ft 4.17 in 11/04/23 10:32 Weight: 165.6 kg 11/04/23 10:32 Body Mass Index (BMI) 62.3 11/04/23 10:32 Respiratory Assessment Respiratory Assessment - certified professional ergonomist: Respiratory Tract Infection Hx - certified professional ergonomist Hx Respiratory Tract Infection No 11/03/23 20:37 STOP Sleep Apnea STOP Sleep Apnea - certified professional ergonomist: STOP Sleep Apnea - certified professional ergonomist Hx Hypertension Yes 11/02/23 19:32 Hx Sleep Apnea Yes 11/02/23 19:32 CPAP No 11/02/23 19:32 BIPAP No 11/02/23 19:32 Do you snore loudly (louder than talking or can be heard Do you often feel tired/ fatigued/ sleepy during daytime? Has anyone observed you stop breathing during sleep? STOP Results Positive 11/02/23 19:32 QUESTION #5 FULL TEXT : Do you snore loudly (louder than talking or can be heard through closed doors)? Tobacco Use History Tobacco Use History - certified professional ergonomist: Tobacco Use History - certified professional ergonomist Tobacco Use Smoking Status Current every day smoker 11/02/23 20:17 Hx Tobacco Use No 11/02/23 19:32 Years Smoking Packs Smoked per Day Smoking Cessation Date was within the last 15 years Hx Smoking Cessation Date Hx Smoking Cessation Counseling Hematologic Medial History Hematologic Hx - certified professional ergonomist: Hematologic Medical Hx - master naval parachutist Hx of Blood Transfusion Yes 11/02/23 19:32 Hx of Transfusion in last 3 No 11/02/23 19:32 Months Date of Last Transfusion (if within last 3 months) Ever experience any problems No 11/02/23 19:32 with transfusion(s)? Specify any problems Hx of Preganancy in last 3 N/A 11/02/23 19:32 Months Nurse Filling Out Transfusion FSTEINER 11/02/23 19:32 & Questions: Date: 11/02/23 11/02/23 19:32 Time: 19:34 11/02/23 19:32 Patient unable to answer at this time (ie. confused, unrespo /Reproduction History /Reproductive History - certified professional ergonomist: /Reproductive Hx- certified professional ergonomist Hx Now No 11/03/23 20:37 Gestational Age (in weeks): EDC: Hx Hx Para Hx Section SAB No 11/03/23 20:37 Active Medications Active Medications: Current Medications Generic Name Dose Route Start Last Admin Trade Name Freq PRN Reason Stop Dose Admin Acetaminophen 650 mg 11/02/23 19:49 11/03/23 22:12 Acetaminophen 325 Mg Tablet PO 650 mg Q4H PRN PRN Administration Fever, pain 1-10 Al Hydrox/Mg Hydrox/Simethicone 30 ml 11/02/23 19:49 Mag /Aluminum/Simeth Wch Udc 30 Ml Oral.Susp PO Q6H PRN PRN Gastric Burning Albuterol Sulfate 2.5 mg 11/02/23 19:49 Albuterol 2.5 Mg/3 Ml Vial.Neb. INHALATION Q2H PRN PRN Dyspnea, wheezing Atorvastatin Calcium 40 mg 11/02/23 22:00 11/03/23 22:11 Atorvastatin Calcium 40 Mg Tablet PO 40 mg QHS TATIANA Administration Budesonide 0.5 mg 11/02/23 20:15 11/04/23 07:32 Budesonide Respules 0.5 Mg/2 Ml Ampul.Neb. INHALATION 0.5 mg BID.RT TATIANA Administration Bumetanide 2 mg 11/02/23 22:00 11/04/23 05:30 Bumetanide 2 Mg Tablet PO Not Given TID TATIANA Protocol Famotidine 20 mg 11/05/23 10:00 Famotidine 20 Mg Tablet PO DAILY TATIANA Ferrous Sulfate 325 mg 11/03/23 08:00 11/04/23 07:41 Ferrous Sulfate 325 Mg Tablet PO Not Given DAILYCM TATIANA Gabapentin 200 mg 11/02/23 22:00 11/04/23 05:31 Gabapentin 100 Mg Capsule PO Not Given TID TATIANA Glucagon 1 mg 11/02/23 19:49 Glucagon 1 Mg/Ml Syringe IM X1 PRN HYPOGLYCEMIA Protocol Guaifenesin 20 ml 11/02/23 19:49 Guaifenesin 10 Ml Udc (200mg/10ml) PO Q4H PRN PRN COUGH Heparin Sodium (Porcine) 5,000 unit 11/04/23 14:00 Heparin Injection (Vial) 5,000 Unit/Ml Vial SC Q8 TATIANA Hydralazine HCl 10 mg 11/02/23 19:49 Hydralazine 20 Mg/Ml Vial IV Q4H PRN PRN SBP > 160 Protocol Sodium Chloride 250 mls @ 15 mls/hr 11/02/23 19:36 IV .[id number] PRN Additional IVPB Infusion Sodium Chloride 250 mls @ 15 mls/hr 11/02/23 19:36 IV .[id number] PRN Saline Flush Vancomycin IV-PHARMACY TO DOSE 500 mls @ 250 mls/hr 11/02/23 19:49 1 each/ Sodium Chloride IV PRN PRN Rx to Dose Protocol Dextrose 250 mls @ 0 mls/hr 11/02/23 19:49 Dextrose 10%-Water IV .Q0M PRN HYPOGLYCEMIA Protocol As Directed Ceftriaxone Sodium 2 gm/ 50 mls @ 100 mls/hr 11/03/23 10:35 11/04/23 09:36 Sodium Chloride IV 100 mls/hr Q24 TATIANA Administration Sodium Chloride 500 mls @ 0 mls/hr 11/04/23 12:15 IV .Q0M TATIANA KVO Insulin Glargine 30 unit 11/02/23 22:00 11/03/23 22:11 Insulin Glargine-Yfgn 100 Unit/Ml Pen SC 30 unit QHS TATIANA Administration Insulin Human Lispro 2 - 8 unit 11/02/23 22:00 11/04/23 11:08 Insulin Lispro 100 Unit/Ml Insuln.Pen SC Not Given ACHS TATIANA Levothyroxine Sodium 25 mcg 11/03/23 06:00 11/04/23 05:31 Levothyroxine 25 Mcg Tablet PO Not Given DAILY@0600 [facility] Lisinopril 20 mg 11/03/23 10:00 11/03/23 09:32 Lisinopril 20 Mg Tablet PO 20 mg DAILY TATIANA Administration Protocol Melatonin 3 mg 11/02/23 19:49 Melatonin 3 Mg Tablet PO QHS PRN PRN INSOMNIA Metoprolol Succinate 50 mg 11/03/23 10:00 11/04/23 07:43 Metoprolol(Xl)Succ 50 Mg Tablet PO 50 mg DAILY TATIANA Administration Protocol Montelukast Sodium 10 mg 11/02/23 22:00 11/03/23 22:12 Montelukast 10 Mg Tablet PO 10 mg QHS TATIANA Administration Nicotine 14 mg 11/02/23 19:49 11/03/23 09:58 Nicotine 14 Mg Patch TD 14 mg DAILY TATIANA Administration Nifedipine 30 mg 11/03/23 10:00 11/03/23 09:54 Nifedipine 30 Mg Tablet PO Not Given DAILY TATIANA Ondansetron HCl 4 mg 11/02/23 19:49 Ondansetron 4 Mg/2 Ml Vial IV Q8H PRN PRN NAUSEA/VOMITING Oxycodone HCl 5 mg 11/02/23 19:49 11/03/23 22:12 Oxycodone 5 Mg Tablet PO 5 mg Q4H PRN PRN Administration Pain Score 4-10 Pantoprazole Sodium 40 mg 11/03/23 10:00 11/04/23 07:43 Pantoprazole Sodium 40 Mg Tablet PO 40 mg DAILY TATIANA Administration Prochlorperazine Edisylate 5 mg 11/02/23 19:49 Prochlorperazine 10 Mg/2 Ml Vial IV Q4H PRN PRN Breakthrough nausea/vomiting Quetiapine Fumarate 25 mg 11/02/23 22:00 11/03/23 22:15 Quetiapine 25 Mg Tablet PO 25 mg QHS TATIANA Administration Protocol Senna/Docusate Sodium 2 tablet 11/02/23 19:49 Senna/Docusate Sodium 1 Tablet PO BID PRN PRN Constipation Sodium Chloride 10 - 40 ml 11/02/23 19:36 11/03/23 16:41 0.9% Saline Lock 10 Ml Syringe IV 40 ml UD PRN Administration SALINE FLUSH Vancomycin Protocol 1 lab 11/05/23 04:00 Vancomycin Trough/Random Due MC 11/05/23 08:00 DAILY [facility] PFSH Medical History Hypothyroidism Allergic rhinitis Chronic acquired lymphedema Morbid obesity Chronic anemia ESRD (end stage renal disease) on dialysis History of renal cell cancer Chronic painful diabetic neuropathy IDDM (insulin dependent diabetes mellitus) Tobacco use Mood disorder Anxiety and depression Sleep apnea COPD (chronic obstructive pulmonary disease) Asthma Home Medications ?Medication ?Instructions ?Recorded ?Last Taken ?Type atorvastatin 40 mg tablet 40 mg PO QHS HLD 11/02/23 Unknown History bumetanide 2 mg tablet 2 mg PO TID HTN, edema 11/02/23 Unknown History famotidine 20 mg tablet 20 mg PO BID GERD 11/02/23 Unknown History ferrous sulfate 325 mg (65 mg 325 mg PO DAILY Fe deficiency 11/02/23 Unknown History iron) tablet (FeroSul) anemia gabapentin 100 mg capsule 200 mg PO TID DM neuropathy 11/02/23 Unknown History glipizide 10 mg tablet 20 mg PO BID DM 11/02/23 Unknown History insulin aspart U-100 100 unit/mL subcut ISS DM 11/02/23 Unknown History subcutaneous solution insulin glargine 100 unit/mL (3 30 unit subcut QHS DM 11/02/23 Unknown History mL) subcutaneous pen (Lantus Solostar U-100 Insulin) levothyroxine 25 mcg tablet 25 mcg PO DAILY Hypothyroidism 11/02/23 Unknown History lisinopril 20 mg tablet 20 mg PO DAILY HTN 11/02/23 Unknown History metoprolol succinate 50 mg 50 mg PO DAILY HTN 11/02/23 11/04/23 History tablet,extended release 24 hr montelukast 10 mg tablet 10 mg PO QHS Allergic rhinitis 11/02/23 Unknown History nifedipine 30 mg tablet,extended 30 mg PO HTN 11/02/23 Unknown History release pantoprazole 40 mg tablet,delayed 40 mg PO DAILY GERD 11/02/23 11/04/23 History release quetiapine 25 mg tablet 25 mg PO QHS 11/02/23 Unknown History Anxiety/Depression/Mood disorder Allergy/AdvReac Type Severity Reaction Status Date / Time bee venom protein (honey Allergy Severe Anaphylaxis Verified 11/02/23 13:29 bee) (bee stings) clindamycin Allergy Severe Hives Verified 11/02/23 13:29 metformin AdvReac Intermediate Diarrhea Verified 11/02/23 13:29 dulaglutide (From Trulicity) AdvReac Mild Constipatio Verified 11/02/23 13:29 n Family History Mother Diabetes Father Cancer Hx Lung, Rectal cancer. COPD (chronic obstructive pulmonary disease) Diabetes Surgical History S/P foot surgery, left H/O partial nephrectomy Social History household members: family Smoking Status: Current every day smoker tobacco type: cigarettes Smoking packs per day: 0.5 Smoking cigarettes per day: 10.0 alcohol intake: never substance use type: does not use Review of Systems (Anesthesia) ROS Narrative System reviewed and no additional complaints, except as documented.
--- NOTE | 2023-11-04 12:47 | NURSING ---
off unit @ approx 11:45 to OR
--- NOTE | 2023-11-04 13:00 | TISS_PTH ---
PATIENT: ANEESH HALL LOC: MS3 U#:[id number] AGE/SX: 42/F ROOM: [facility] RE11/02/[address]: Dr. Debbie Soares MD : 1980 BED: 1 DIS: 11/09/2023 SPEC #: [id number] RECD: 11/04/23 16:17 STATUS: RAMSEY COATES #: [id number] TERELL: 11/04/23 13:[address]: Jesse Perez DEPT: SURGICAL PATHOLOGY RECD BY: Toni Diamond ENTERED: 11/05/23 08:05 SP TYPE: Tissue Bx LUIS FELIPE DR: MD Dr. Radha Khan MD Dr. Jonathan Moss, DPM DO Dr. Debbie Woodson MD Dr. Robert Leininger, MD Amy D Conley, SENIOR SALES OPERATIONS ANALYST-C Tissues: TISSUE SURGICALLY REMOVED Procedures: Surgery Specimen Level IV HEADER OPERATION: Left leg wound debridement with primary closure PRE-OP DIAGNOSIS: Cellulitis and abscess of left leg TISSUE SUBMITTED: Left leg tissue MICROSCOPIC DIAGNOSIS Soft tissue of left leg, excision: Organizing fat necrosis and fibrosis. Granulation tissue with associated chronic inflammation. / 11/06/2023 MICROSCOPIC DESCRIPTION Slides are reviewed. GROSS DESCRIPTION Received in fixative is one container labeled with the patient's name and designated Left leg tissue. The specimen consists of multiple pieces of francois-yellow adipose tissue measuring in aggregate 9.0 x 8.0 x 2.5cm. No mass lesion is identified. [place] sections are submitted in two cassettes. [place]/ 11/05/2023 TC:3 CPT:67857
--- NOTE | 2023-11-04 13:04 | PN.RENAL_ITS ---
Subjective Subjective no new complaints Objective Data Objective Data Vital Signs: Vital Signs Temp Pulse Resp BP Pulse Ox O2 Del Method O2 Flow Rate 97.9 F 83 18 115/75 96 Room Air 2 11/04/23 12:19 11/04/23 12:19 11/04/23 12:19 11/04/23 12:19 11/04/23 12:19 11/04/23 12:19 11/04/23 12:40 Oxygen Flow Rate (L/min) 2 Oxygen Delivery Method Room Air Weight: 165.6 kg Body Mass Index (BMI) 62.3 Intake & Output: Intake and Output for Last 24 Hours 11/02/23 11/03/23 11/04/23 23:59 23:59 23:59 Intake Total 1140 / 1390 2680 / 2880 200 / 200 Output Total 2580 / 2580 Balance 1140 / 1390 100 / 300 200 / 200 Lab / Micro Data 11/03/23 13:30 11/03/23 08:25 Labs: Laboratory Results - last 24 hr 11/03/23 08:25: TSH 5.80 H 11/03/23 13:30: WBC 3.7 L, RBC 3.31 L, Hgb 10.0 L, Hct 31.8 L, MCV 96.1, MCH 30.2, MCHC 31.4 L, RDW Std Deviation 48.5 H, RDW Coeff of Luciano 13.8, Plt Count 105 L, MPV 11.3, Immature Gran % (Auto) 0.300, Neut % (Auto) 70.5 H, Lymph % (Auto) 18.1 L, [place] % (Auto) 5.7, Eos % (Auto) 4.9, Baso % (Auto) 0.5, Absolute Neuts (auto) 2.6, Absolute Lymphs (auto) 0.67 L, Nucleated RBC % 0, Hemoglobin A1c 8.5 H 11/03/23 16:47: POC Glucose 151 H 11/03/23 22:07: POC Glucose 209 H 11/04/23 05:56: POC Glucose 168 H 11/04/23 10:59: POC Glucose 159 H 11/04/23 11:02: APTT 23.9 L, Serum , Qual NEGATIVE Micro: Microbiology 11/02/23 08:00 Abs - Leg Gram Stain - Final 11/02/23 20:51 Wound - Leg, Left Skin and Soft Tissue MRSA/MSSA (PCR - Final Radiography Diagnostic Testing: Radiology Impression Lower Extremity MRI 11/03/23 09:30 IMPRESSION: Skin thickening with focal wound and subcutaneous edema. No abscess or fluid collection. No evidence of osteomyelitis. Electronically Signed: Adriel Hobbs MD at 19:42 EDT Reading Location ID and State: [facility] / [place] , Service support , Venous Doppler Study 11/03/23 09:30 Interpretation Summary Deep veins of the bilateral lower extremities are patent and compressible segmentally. There is no evidence of bilateral lower extremity deep vein thrombosis. The bilateral great saphenous veins appear patent and compressible segmentally. Ordering Physician: Jesse Perez Referring Physician: Areli Kincaid Performed By: Gaston Scott RVT Physical Exam Narrative Alert awake oriented x 3 no obvious distress no pallor no icterus no JVD s1s2 no murmurs lungs clear abdomen soft no organomegaly no edema no cyanosis Assessment & Plan Assessment/Plan (1) ESRD (end stage renal disease): PLAN: On hemodialysis., Thursday, , Thursday schedule. Left lower extremity cellulitis. ID on consult to OR today.
[2023-11-04] MEDS: Bupivacaine Mpf 0.5% 30 ML VIAL (14:29)
--- NOTE | 2023-11-04 14:55 | PCM.OPRPT ---
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 This was drained by an outside practitioner. Patient developed subsequent chronic ulceration to left medial leg. Patient was treated for with local wound care in the wound care center which failed and patient ultimately ended up in the ER for hospital admission for left lower extremity cellulitis. MRI was obtained but did not demonstrate any focal fluid collections. Arterial studies were obtained and demonstrated normal blood flow. Decision was made for excisional debridement of the wound with wound exploration and delayed primary closure of send wound. Surgeon: Jesse Perez scientific recruiter: None Type of Anesthesia: MAC Special Medications: 30CC 0.5% Marcaine plain Specimen's removed: Tissue left lower extremity for microbiology and pathology as well as pre and post lavage swab cultures Drains: None Estimated Blood Loss (mL): 50 cc Description of Procedure: Patient was brought back the operating placed comfortably in the supine position on operating room table. Patient used under MAC anesthesia. No tourniquet was used. Left lower extremity was scrubbed prepped draped using typical aseptic fashion. Once cleared by anesthesia a local infiltration block was performed at proximal aspect of the left medial leg wound using 30 cc half percent Marcaine plain. Procedure #1: Left lower extremity wound debridement down to including level of muscle excisional Preoperatively the wound was noted to be 1.0 x 1.0 x 5 cm in depth with diffuse periwound undermining. Wound was debrided excisionally with combination of 15 blade pickups ronbowen's Metzenbaum scissors and pickups. There is noted to be a diffuse network of small focal abscesses greater than 10 to the left medial calf that were removed from the incisional site and passed the back table for further examination. All nonviable tissue was removed from the site. Diffuse purulence was noted greater than 20 cc. Prelavage swab cultures were taken. Postdebridement the wound demonstrated a large void which would be closed via delayed primary closure spanning approximately 15 x 7 x 7 cm. Postdebridement the wound demonstrated healthy bleeding granular base no residual nonviable tissue. Site was flushed with copious amounts of normal sterile saline using low-pressure pulse lavage. Post lavage swab cultures taken. Procedure #2: Left lower extremity wound delayed primary closure The wound edges were mobilized and reapproximated and closed with deep simple interrupted 2-0 Vicryl. Subcutaneous closure with simple interrupted buried 2-0 Vicryl. Skin closure performed with murtaza. All sites were dressed with Betadine Adaptic 4 x 4's Kerlix and double layer Willard compression dressing. Patient was transferred to PACU vital signs stable vascular status intact all digits for further monitoring prior to transfer patient tolerated procedure and anesthesia well in apparent satisfactory condition. Patient will continue receive IV antibiotics will monitor patient closely while in-house.
--- NOTE | 2023-11-04 15:00 | PCM.POST.ANE ---
Anesthesia: Postop Eval I Current Vital Signs Temperature: 97 F Pulse Rate: 80 Blood Pressure: 101/75 Respiratory Rate: 16 Pulse Ox: 100 Oxygen Delivery Method: Room Air Assessment Airway patent: Yes Spontaneous unlabored respirations: Yes Mental status: Awake and Calm nausea: No Vomiting: No Anesthesia Complication: No Fluid Hydration Crystalloid volume administer (ml): 400 Total IV fluid infused: 400 Progress Note Anesthesia document: Postop Eval 1 completed: Yes
[2023-11-04 15:37] LABS: Bedside Glucose 127 mg/dL (74-106)
--- NOTE | 2023-11-04 15:56 | SUR.PHASEI ---
right ac IV leaking. anesthesia aware.
[2023-11-04] MEDS: oxyCODONE 5 MG Tablet PO (17:25)
[2023-11-04] MEDS: Acetaminophen 325 MG Tablet 650 MG PO ×2 (17:25)
[2023-11-04] MEDS: Gabapentin 100 MG Capsule 200 MG PO ×2 (17:26→21:42)
--- NOTE | 2023-11-04 18:00 | EKG12_ITS ---
Test Reason : PRE-OP Blood Pressure : / mmHG Vent. Rate : 081 BPM Atrial Rate : 081 BPM P-R Int : 150 ms QRS Dur : 090 ms QT Int : 392 ms P-R-T Axes : 012 -09 029 degrees QTc Int : 455 ms Normal sinus rhythm Normal ECG No previous ECGs available Confirmed by DEVON PADGETT, EZEQUIEL ([id number]), television news video editor CHARLETTE PATTON ([id number]) on 11/04/2023 1:25:04 PM Referred By: JODI Confirmed By:EZEQUIEL OSORIO MD
[2023-11-04] MEDS: Heparin Injection (Vial) 5,000 UNIT/ML VIAL 5000 UNIT SC (21:42)
[2023-11-04] MEDS: Atorvastatin Calcium 40 MG Tablet PO (21:42)
[2023-11-04] MEDS: Insulin Glargine-YFGN 100 UNIT/ML Pen 30 UNIT SC (21:42)
[2023-11-04] MEDS: Montelukast 10 MG Tablet PO (21:42)
[2023-11-04] MEDS: QUEtiapine 25 MG Tablet PO (21:42)
[2023-11-04 22:03] LABS: Bedside Glucose 147 mg/dL (74-106)
--- NOTE | 2023-11-04 22:21 | POSTOPAN2_ITS ---
Anesthesia Postop Eval I Sum Postop Eval Completion status Anesthesia document: Postop Eval 1 completed: Yes Anesthesia Postop Eval I Summary Anesthesia Postop Eval I Summary: Anesthesia Postop Eval I: Assessment Summary Airway patent Yes 11/04/23 15:01 WET MACHINE OPERATOR.[email or web address] Spontaneous unlabored Yes 11/04/23 15:01 WET MACHINE OPERATOR.[email or web address] respirations Mental status Awake,Calm 11/04/23 15:01 WET MACHINE OPERATOR.[email or web address] nausea No 11/04/23 15:01 WET MACHINE OPERATOR.[email or web address] Vomiting No 11/04/23 15:01 WET MACHINE OPERATOR.JBLOU Anesthesia Postop Eval I: Fluid Summary Crystalloid volume administer 400 11/04/23 15:01 WET MACHINE OPERATOR.JBLOU (ml) Colloids volume administered ( ml) Blood Product volume administered (ml) Total IV fluid infused 400 11/04/23 15:01 WET MACHINE OPERATOR.[email or web address] Anesthesia Postop Eval I: Summary Notes Anesthesia Complication No 11/04/23 15:01 WET MACHINE OPERATOR.CARRIE Anesthesia Complication Comment: Post-operative progress note Anesthesia: Postop Eval II Evaluation Mental status: Awake and Calm Pain Level: 1 nausea: No Vomiting: No Complications Anesthesia Complication: No
--- NOTE | 2023-11-04 22:21 | PCM.POSTANE2 ---
Anesthesia Postop Eval I Sum Postop Eval Completion status Anesthesia document: Postop Eval 1 completed: Yes Anesthesia Postop Eval I Summary Anesthesia Postop Eval I Summary: Anesthesia Postop Eval I: Assessment Summary Airway patent Yes 11/04/23 15:01 TRAVELING CLERK.[email or web address] Spontaneous unlabored Yes 11/04/23 15:01 TRAVELING CLERK.[email or web address] respirations Mental status Awake,Calm 11/04/23 15:01 TRAVELING CLERK.[email or web address] nausea No 11/04/23 15:01 TRAVELING CLERK.JBLOU Vomiting No 11/04/23 15:01 TRAVELING CLERK.JBLOU Anesthesia Postop Eval I: Fluid Summary Crystalloid volume administer 400 11/04/23 15:01 TRAVELING CLERK.JBLOU (ml) Colloids volume administered ( ml) Blood Product volume administered (ml) Total IV fluid infused 400 11/04/23 15:01 TRAVELING CLERK.[email or web address] Anesthesia Postop Eval I: Summary Notes Anesthesia Complication No 11/04/23 15:01 TRAVELING CLERK.CARRIE Anesthesia Complication Comment: Post-operative progress note Anesthesia: Postop Eval II Evaluation Mental status: Awake and Calm Pain Level: 1 nausea: No Vomiting: No Complications Anesthesia Complication: No
[2023-11-05] VITALS (15 sets, daily range): BP systolic 88–400; BP diastolic 44–87; PULSE 72–91; RESP 16–18; TEMP 36.5–37.1; O2SAT 92–100; BMI 62.1; BMI 61.7
[2023-11-05] MEDS: Budesonide Respules 0.5 MG/2 ML AMPUL.NEB. INHALATION (06:39)
[2023-11-05] MEDS: Heparin Injection (Vial) 5,000 UNIT/ML VIAL 5000 UNIT SC ×3 (07:18→22:23)
[2023-11-05] MEDS: Gabapentin 100 MG Capsule 200 MG PO (07:18)
[2023-11-05] MEDS: Levothyroxine 25 MCG TABLET PO (07:18)
[2023-11-05 07:33] LABS: Bedside Glucose 136 mg/dL (74-106)
--- NOTE | 2023-11-05 08:22 | NURSING ---
0800 voicemail message left for Gavino announcer to call [facility] for dialysis times
--- NOTE | 2023-11-05 09:19 | PCM.PROGNOTE ---
Subjective Subjective Patient seen and examined. She complained of pain in her left lower extremity, the site of the surgery. She rates the pain at 7-8/10. Blood pressures running low today at 94/58. Today's postop day 1 for excisional debridement of the left leg wound with delayed primary closure of left leg wound. Objective Data Objective Data Vital Signs: Vital Signs Temp Pulse Resp BP Pulse Ox O2 Del Method O2 Flow Rate 98 F 84 18 94/58 L 95 Room Air 2 11/05/23 02:54 11/05/23 02:54 11/05/23 02:54 11/05/23 07:21 11/05/23 02:54 11/05/23 02:54 11/04/23 16:25 Oxygen Flow Rate (L/min) 2 Oxygen Delivery Method Room Air Weight: 363 lb 15.731 oz Body Mass Index (BMI) 62.1 Intake & Output: Intake and Output for Last 24 Hours 11/03/23 11/04/23 11/05/23 23:59 23:59 23:59 Intake Total 2680 / 2880 450 / 450 Output Total 2580 / 2580 Balance 100 / 300 450 / 450 Lab / Micro Data 11/03/23 13:30 11/03/23 08:25 Labs: Laboratory Results - last 24 hr 11/04/23 10:59: POC Glucose 159 H 11/04/23 11:02: APTT 23.9 L, Serum , Qual NEGATIVE 11/04/23 15:19: POC Glucose 127 H 11/04/23 21:38: POC Glucose 147 H 11/05/23 07:14: POC Glucose 136 H Micro: Microbiology 11/02/23 08:00 Abs - Leg Gram Stain - Final 11/02/23 08:00 Abs - Leg Wound Culture - Preliminary Gram positive yen 11/02/23 20:51 Wound - Leg, Left Skin and Soft Tissue MRSA/MSSA (PCR - Final Physical Exam Const alert, oriented x3 and no apparent distress Constitutional Narrative: super morbid obesity General Appearance: cooperative, well kempt and well developed Orientation / Consciousness: awake, oriented to person, oriented to place and oriented to time HEENT normocephalic, head/scalp atraumatic, moist oral mucous membranes and oropharynx normal Eyes PERRL, EOMs intact bilaterally and conjunctivae normal Neck no lymphadenopathy, supple, no JVD, thyroid normal and no carotid bruits General: trachea midline Lymph Lymphatic: no lymphadenopathy noted and no lymphedema noted Resp normal respiratory effort, normal air movement, no retractions, no use of accessory muscles and clear to auscultation bilaterally Auscultation: Negative for rales, rhonchi or wheezes Cardio regular rate, regular rhythm, S1 normal heart sound, S2 normal heart sound, no murmurs and no gallops GI normal to inspection, nondistended, normoactive bowel sounds, soft to palpation, non-tender and non-distended GI Narrative: obese abdomen Extremity Extremity Narrative: LLE wrapped in bandage Skin Skin Narrative: as under extremities Neuro oriented x3, CN's II-XII intact bilaterally, moves all extremities, no focal motor deficits, no sensory deficits noted and deep tendon reflexes 2+ bilaterally Sensorium / Orientation: awake and alert Speech: speech normal Motor Exam: strength 5/5 throughout and general weakness Psych thought process normal, cooperative and affect normal Appearance: appropriate Assessment & Plan Assessment/Plan (1) Cellulitis of left lower limb: (2) ESRD (end stage renal disease): PLAN: Plan #Cellulitis of hte LLE failed outpatient therapy ID and podiatry on board s/p excisional debridement of LLE, with delayed closure of LLE wound. on IV vancomycin and ceftriaxone wound cultures pending. BLood work also pending today PICC line being obtained today as patient is a hard stick. #Pancytopenia: Hemoglobin was 10 with platelets of 105 and WBC of 3.7. Etiology is not very clear. Platelets were 105 yesterday. CBC pending today Will continue monitoring closely and if it drops further consider discontinuing heparin. #Type 2 diabetes mellitus:A1C is 8.5. On Lantus 30 units nightly as well as glipizide. Insulin sliding scale. Accu-Cheks ACHS. . #Hypertension: On metoprolol and lisinopril. BP has been running low in the 80s and 90s since surgery. Will hold BP meds for now and monitor. Cannot aggressively hydrate as she has ESRD. #Hypothyroidism: on synthroid #Hyperlipidemia: On statin #ESRD: on HD Tuesdays, and Saturdays. Nephrology on board. #JOHNY: noncompliant with her CPAP. Counseled to comply with CPAP #Super morbid obesity: BMi is 62.7. Complicates acute care, expected recovery and prognosis DVT prophylaxis: On heparin 5000 units every 12. Will switch to every 8 in light of his morbid obesity. Charges/Coding Visit Charges Inpatient E&M: 72086 Subs Hosp L2
[2023-11-05] MEDS: Ceftriaxone 2 GM in 0.9% Normal Saline (50mL MB+) 50 ML IV (10:18)
[2023-11-05] MEDS: Pantoprazole Sodium 40 MG Tablet PO (10:19)
[2023-11-05] MEDS: Ferrous Sulfate 325 MG Tablet PO (10:19)
[2023-11-05] MEDS: Famotidine 20 MG Tablet PO (10:19)
--- NOTE | 2023-11-05 11:16 | PCM.PROGNOTE ---
Subjective Subjective 42-year-old female status post left leg incision and drainage of abscess with delayed primary closure. Patient denies constitutional symptoms. Patient notes some pain to left lower extremity. Patient denies any other complaints at this time. Patient is end-stage renal disease. Objective Data Objective Data Vital Signs: Vital Signs Temp Pulse Resp BP Pulse Ox O2 Del Method O2 Flow Rate 98.8 F 91 16 109/87 H 92 Room Air 2 11/05/23 09:51 11/05/23 09:51 11/05/23 09:51 11/05/23 09:51 11/05/23 09:51 11/05/23 09:51 11/04/23 16:25 Oxygen Flow Rate (L/min) 2 Oxygen Delivery Method Room Air Weight: 165.1 kg Body Mass Index (BMI) 62.1 Intake & Output: Intake and Output for Last 24 Hours 11/03/23 11/04/23 11/05/23 23:59 23:59 23:59 Intake Total 2680 / 2880 450 / 450 Output Total 2580 / 2580 Balance 100 / 300 450 / 450 Lab / Micro Data 11/03/23 13:30 11/03/23 08:25 Labs: Laboratory Results - last 24 hr 11/04/23 10:59: POC Glucose 159 H 11/04/23 11:02: APTT 23.9 L, Serum , Qual NEGATIVE 11/04/23 15:19: POC Glucose 127 H 11/04/23 21:38: POC Glucose 147 H 11/05/23 07:14: POC Glucose 136 H Micro: Microbiology 11/02/23 08:00 Abs - Leg Gram Stain - Final 11/02/23 08:00 Abs - Leg Wound Culture - Preliminary Gram positive yen GNR Poss Pseudomonas sp 11/02/23 20:51 Wound - Leg, Left Skin and Soft Tissue MRSA/MSSA (PCR - Final Physical Exam Narrative Neurovascular status unchanged. Long approximated incision to left medial leg with intact murtaza. Improving erythema edema and warmth to left lower extremity. Intraoperative cultures pending. Cultures from the wound swab on 11/01 are growing Pseudomonas and gram-positive yen. Patient receiving IV antibiotics, infectious disease on board Redressed surgical site with Betadine Adaptic dry sterile dressing and multilayer compression wrap. Patient can weight-bear to tolerance assisted by walker for transfer purposes under supervision. Will plan for home health care dressing changes upon discharge, recommend every third day or 2-3 times a week dressing changes consisting of Betadine Adaptic to the incisional site followed by 4 x 4's Kerlix and a multilayer compression wrap to left lower extremity.
--- NOTE | 2023-11-05 11:33 | WOUNDNOTE ---
skin photo: left lower leg
--- NOTE | 2023-11-05 11:34 | WOUNDNOTE ---
wound photo: left medial lower leg
[2023-11-05] MEDS: 0.9% Normal Saline 1,000 ML IV.SOLN. 1000 ML OPERA.SITE (11:54)
[2023-11-05] MEDS: 0.9% Saline Lock 10 ML Syringe IV ×2 (11:55→15:06)
[2023-11-05] MEDS: PureFlow B 2K Dialysis Soln 1 BAG 6 BAG PF (12:05)
[2023-11-05 12:33] LABS: Absolute Lymphocyte Count 0.98 X10^3/uL (0.83-4.51); Absolute Neutrophil Count 4.6 X10^3/uL (2.0-7.7); Basophil# 0.03 X10^3/uL; Basophil% 0.5 % (0-1); Eosinophil# 0.12 X10^3/uL; Eosinophils% 1.9 % (0-5); Hematocrit 30.3 % (37-47); Hemoglobin 9.4 g/dL (12.0-15.0); Lymphocyte # 0.98 X10^3/ul (0.83-4.51); Lymphocyte % 15.5 % (19-41); Mean Corpuscular Hgb 30.2 pg (27.0-32.0); Mean Corpuscular Volume 97.4 fL (81-99); Mean Platelet Vol. 11.1 fl (6.2-12.0); Monocyte# 0.54 X10^3/uL; Monocyte% 8.6 % (0-10); NRBC Flagged by Analyzer 0 % (0-5); Neutrophil # 4.61 X10^3/uL (2.7-7.7); Platelet Count 125 K/mm3 (150-450); RBC Distribution Width CV 13.8 % (11.6-14.6); RBC Distribution Width SD 48.9 fl (35.1-43.9); Red Blood Count 3.11 M/mm3 (4.2-5.4); White Blood Count 6.3 K/mm3 (4.4-11.0)
[2023-11-05 13:07] LABS: Bedside Glucose 148 mg/dL (74-106)
[2023-11-05 13:15] LABS: Anion Gap 6 (5-15); BUN 34 mg/dL (7-18); BUN/Creat Ratio 7.4 RATIO (10-20); Calcium,Total 8.5 mg/dL (8.5-10.1); Chloride 103 mmol/L (98-107); Creatinine, Serum 4.57 mg/dL (0.55-1.02); EST Glomerular Filtration Rate 11 mL/min (>60); Est Glom Filt Rate - Afr Amer 13 mL/min (>60); Estimated Creatinine Clearance 24.67 ml/min; Glucose 162 mg/dL (74-106); Potassium 3.8 mmol/L (3.5-5.1); Sodium Level 135 mmol/L (136-145)
--- NOTE | 2023-11-05 13:36 | PN.RENAL_ITS ---
Subjective Subjective sleepy today Objective Data Objective Data Vital Signs: Vital Signs Temp Pulse Resp BP Pulse Ox O2 Del Method O2 Flow Rate 98.8 F 84 18 92/58 L 96 Room Air 2 11/05/23 09:51 11/05/23 13:30 11/05/23 13:30 11/05/23 13:30 11/05/23 13:30 11/05/23 13:30 11/04/23 16:25 Oxygen Flow Rate (L/min) 2 Oxygen Delivery Method Room Air Weight: 164.1 kg Body Mass Index (BMI) 61.7 Intake & Output: Intake and Output for Last 24 Hours 11/03/23 11/04/23 11/05/23 23:59 23:59 23:59 Intake Total 2680 / 2880 450 / 450 50 / 50 Output Total 2580 / 2580 Balance 100 / 300 450 / 450 50 / 50 Lab / Micro Data 11/05/23 12:20 11/05/23 12:20 Labs: Laboratory Results - last 24 hr 11/04/23 15:19: POC Glucose 127 H 11/04/23 21:38: POC Glucose 147 H 11/05/23 07:14: POC Glucose 136 H 11/05/23 12:20: WBC 6.3, RBC 3.11 L, Hgb 9.4 L, Hct 30.3 L, MCV 97.4, MCH 30.2, MCHC 31.0 L, RDW Std Deviation 48.9 H, RDW Coeff of Luciano 13.8, Plt Count 125 L, MPV 11.1, Immature Gran % (Auto) 0.500, Neut % (Auto) 73.0 H, Lymph % (Auto) 15.5 L, [place] % (Auto) 8.6, Eos % (Auto) 1.9, Baso % (Auto) 0.5, Absolute Neuts (auto) 4.6, Absolute Lymphs (auto) 0.98, Nucleated RBC % 0, Sodium 135 L, Potassium 3.8, Chloride 103, Carbon Dioxide 26.0, Anion Gap 6, BUN 34 H, C reatinine 4.57 H, Estim Creat Clear Calc 24.67, Est GFR (MDRD) Af Amer 13 L, Est GFR (MDRD) Non-Af 11 L, BUN/Creatinine Ratio 7.4 L, Glucose 162 H, Calcium 8.5 11/05/23 12:42: POC Glucose 148 H Micro: Microbiology 11/04/23 14:56 Tissue - Leg, Left Gram Stain - Final 11/04/23 14:56 Tissue - Leg, Left Wound Culture - Preliminary GNR lactose pipe coverer and insulator 11/04/23 14:56 Wound - Leg, Left Gram Stain - Final 11/04/23 14:56 Wound - Leg, Left Gram Stain - Final 11/02/23 08:00 Abs - Leg Gram Stain - Final 11/02/23 08:00 Abs - Leg Wound Culture - Preliminary Gram positive yen GNR Poss Pseudomonas sp 11/02/23 20:51 Wound - Leg, Left Skin and Soft Tissue MRSA/MSSA (PCR - Final Physical Exam Narrative no obvious distress no pallor no icterus no JVD s1s2 no murmurs lungs clear abdomen soft no organomegaly no edema no cyanosis Assessment & Plan Assessment/Plan (1) ESRD (end stage renal disease): PLAN: On hemodialysis., Thursday, , Thursday schedule. HD today. see orders. Left lower extremity cellulitis. ID on consult Anemia. Hb is below goal. usually gets long acting CARRIE with HD. if she is still here end of the week will add CARRIE
--- NOTE | 2023-11-05 14:17 | PCM.PN.ID ---
ID ID: Route of nutrition/ use of supplements: [] Nutritional Intake: [] IV Site: [] Serrano Catheter: [] Patient overall clinically stable. Currently starting on hemodialysis in her room. No fevers. Operative note reviewed. Pictures from this morning on the left leg also reviewed. Overall the left leg looks benign. Currently on vancomycin plus ceftriaxone. Alert responsive does not appear toxic vital signs reviewed. Abdomen is obese but soft. Left leg currently wrapped. Pictures reviewed from this morning Assessment & Plan Assessment/Plan (1) Cellulitis of left lower limb: PLAN: Okay to go home on cephalexin 500 mg twice a day plus Cipro 500 mg once a day both agents for 7 days.
--- NOTE | 2023-11-05 15:03 | NURSING ---
dr gonzalez notified of dc dialysis treatment due to filter clotting and difficult flushing and inability to aspirate arterial port of dialysis cath. Cath sanjeev to be instilled into arterial port.
[2023-11-05] MEDS: Alteplase 2 MG/2 ML Vial IV (15:05)
[2023-11-05 16:09] LABS: Bedside Glucose 165 mg/dL (74-106)
[2023-11-05 18:46] LABS: Vancomycin, Random Level 18.3 ug/mL (0.0-15.0)
--- NOTE | 2023-11-05 18:52 | PHA.PHARE_ITS ---
Consult Antibiotic Management Pharmacy has been consulted to manage selected antibiotic: Vancomycin Type of Intervention Type of Consult: Follow-up Suspected Infection Suspected Infection: Skin/Soft tissue Prior Doses of Antibiotics Prior Doses of Antibiotics Received/Current Regimen: Vancomycin 1000 mg IV x 1 given after HD 11/03/23 Labs Labs: Sodium 135 mmol/L (136-145) L 11/05/23 12:20 Potassium 3.8 mmol/L (3.5-5.1) 11/05/23 12:20 Chloride 103 mmol/L (98-107) 11/05/23 12:20 Carbon Dioxide 26.0 mmol/L (21.0-32.0) 11/05/23 12:20 Anion Gap 6 (5-15) 11/05/23 12:20 BUN 34 mg/dL (7-18) H 11/05/23 12:20 Creatinine 4.57 mg/dL (0.55-1.02) H 11/05/23 12:20 Est GFR (MDRD) Af Amer 13 mL/min (>60) L 11/05/23 12:20 Est GFR (MDRD) Non-Af 11 mL/min (>60) L 11/05/23 12:20 BUN/Creatinine Ratio 7.4 RATIO (10-20) L 11/05/23 12:20 Glucose 162 mg/dL (74-106) H 11/05/23 12:20 Random Vancomycin 18.3 ug/mL (0.0-15.0) H 11/05/23 18:05 Microbiology Microbiology: Microbiology 11/04/23 14:56 Wound - Leg, Left Gram Stain - Final 11/04/23 14:56 Wound - Leg, Left Wound Culture - Preliminary Gram negative yen 11/04/23 14:56 Tissue - Leg, Left Gram Stain - Final 11/04/23 14:56 Tissue - Leg, Left Wound Culture - Preliminary GNR lactose environmental technician 11/04/23 14:56 Wound - Leg, Left Gram Stain - Final 11/02/23 08:00 Abs - Leg Gram Stain - Final 11/02/23 08:00 Abs - Leg Wound Culture - Preliminary Gram positive yen GNR Poss Pseudomonas sp 11/02/23 20:51 Wound - Leg, Left Skin and Soft Tissue MRSA/MSSA (PCR - Final Dosing Weight Weight used for dosin kg Estimated Creatinine Clearance Estimated Creatinine Clearance: on HD Goal Trough Goal Trough: 15-20 mcg/mL Pharmacy Plan for Drug Dosing Pharmacy Plan for Drug Dosing: The patient was unable to have labs drawn this AM prior to HD d/t lack of access. Pt had HD today and per RN finished ~ 1430. Random level ordered for 1900 at least 4 hours after HD to allow for redistribution. Random level drawn at 1805 = 18.3 mg/dL. Therefore will not give subsequent dose of vancomycin after today's HD session, and will plan for a random level prior to Thursday's (11/06) HD session to check for residual clearance and re-distribution prior to subsequent dosing pending level. Pharmacy Service will continue to monitor and adjust dosing as required. Follow-Up Labs Follow-Up Labs: Trough: Vancomycin Date/Time Labs Ordered Labs to be done on [date and time ordered]: 11/07/23 @ 0600
[2023-11-05] MEDS: Insulin Lispro 100 UNIT/ML INSULN.PEN SC (22:22)
[2023-11-05] MEDS: Insulin Glargine-YFGN 100 UNIT/ML Pen 30 UNIT SC (22:23)
[2023-11-05] MEDS: Montelukast 10 MG Tablet PO (22:24)
[2023-11-05] MEDS: QUEtiapine 25 MG Tablet PO (22:24)
[2023-11-05] MEDS: Atorvastatin Calcium 40 MG Tablet PO (22:24)
[2023-11-05 22:49] LABS: Bedside Glucose 244 mg/dL (74-106)
[2023-11-06] VITALS (7 sets, daily range): BP systolic 90–107; BP diastolic 40–95; PULSE 84–98; RESP 16–18; TEMP 37.2–37.6; O2SAT 93–99; BMI 62.4
[2023-11-06] MEDS: Heparin Injection (Vial) 5,000 UNIT/ML VIAL 5000 UNIT SC ×3 (05:23→21:28)
[2023-11-06] MEDS: Levothyroxine 25 MCG TABLET PO (05:23)
[2023-11-06 06:12] LABS: Absolute Lymphocyte Count 1.26 X10^3/uL (0.83-4.51); Absolute Neutrophil Count 4.3 X10^3/uL (2.0-7.7); Basophil# 0.04 X10^3/uL; Basophil% 0.6 % (0-1); Eosinophil# 0.13 X10^3/uL; Hematocrit 26.7 % (37-47); Hemoglobin 8.3 g/dL (12.0-15.0); Lymphocyte # 1.26 X10^3/ul (0.83-4.51); Lymphocyte % 19.7 % (19-41); Mean Corp Hgb Conc 31.1 g/dL (32-36); Mean Corpuscular Hgb 30.1 pg (27.0-32.0); Mean Corpuscular Volume 96.7 fL (81-99); Mean Platelet Vol. 11.5 fl (6.2-12.0); Monocyte# 0.61 X10^3/uL; Monocyte% 9.6 % (0-10); NRBC Flagged by Analyzer 0 % (0-5); Neutrophil # 4.31 X10^3/uL (2.7-7.7); Neutrophil % 67.6 % (47-70); Platelet Count 123 K/mm3 (150-450); RBC Distribution Width CV 13.8 % (11.6-14.6); RBC Distribution Width SD 48.9 fl (35.1-43.9); Red Blood Count 2.76 M/mm3 (4.2-5.4); White Blood Count 6.4 K/mm3 (4.4-11.0)
[2023-11-06 06:46] LABS: Anion Gap 7 (5-15); BUN 38 mg/dL (7-18); BUN/Creat Ratio 6.3 RATIO (10-20); Calcium,Total 8.2 mg/dL (8.5-10.1); Chloride 106 mmol/L (98-107); Creatinine, Serum 6.03 mg/dL (0.55-1.02); EST Glomerular Filtration Rate 8 mL/min (>60); Est Glom Filt Rate - Afr Amer 10 mL/min (>60); Estimated Creatinine Clearance 18.84 ml/min; Glucose 184 mg/dL (74-106); Potassium 3.7 mmol/L (3.5-5.1); Sodium Level 138 mmol/L (136-145)
[2023-11-06] MEDS: Ceftriaxone 2 GM in 0.9% Normal Saline (50mL MB+) 50 ML IV (10:39)
[2023-11-06 11:10] LABS: Bedside Glucose 166 mg/dL (74-106)
--- NOTE | 2023-11-06 12:02 | PN.RENAL_ITS ---
Subjective Subjective No new events Objective Data Objective Data Vital Signs: Vital Signs Temp Pulse Resp BP Pulse Ox O2 Del Method O2 Flow Rate 98.9 F 97 17 104/78 93 Room Air 2 11/06/23 10:19 11/06/23 10:19 11/06/23 10:19 11/06/23 10:19 11/06/23 10:19 11/06/23 10:19 11/06/23 07:46 Oxygen Flow Rate (L/min) 2 Oxygen Delivery Method Room Air Weight: 166 kg Body Mass Index (BMI) 62.4 Intake & Output: Intake and Output for Last 24 Hours 11/04/23 11/05/23 11/06/23 23:59 23:59 23:59 Intake Total 450 / 450 900 / 900 Output Total 1640 / 1640 Balance 450 / 450 -740 / -740 Lab / Micro Data 11/06/23 05:44 11/06/23 05:44 Labs: Laboratory Results - last 24 hr 11/05/23 12:20: WBC 6.3, RBC 3.11 L, Hgb 9.4 L, Hct 30.3 L, MCV 97.4, MCH 30.2, MCHC 31.0 L, RDW Std Deviation 48.9 H, RDW Coeff of Luciano 13.8, Plt Count 125 L, MPV 11.1, Immature Gran % (Auto) 0.500, Neut % (Auto) 73.0 H, Lymph % (Auto) 15.5 L, [place] % (Auto) 8.6, Eos % (Auto) 1.9, Baso % (Auto) 0.5, Absolute Neuts (auto) 4.6, Absolute Lymphs (auto) 0.98, Nucleated RBC % 0, Sodium 135 L, Potassium 3.8, Chloride 103, Carbon Dioxide 26.0, Anion Gap 6, BUN 34 H, C reatinine 4.57 H, Estim Creat Clear Calc 24.67, Est GFR (MDRD) Af Amer 13 L, Est GFR (MDRD) Non-Af 11 L, BUN/Creatinine Ratio 7.4 L, Glucose 162 H, Calcium 8.5 11/05/23 12:42: POC Glucose 148 H 11/05/23 15:44: POC Glucose 165 H 11/05/23 18:05: Random Vancomycin 18.3 H 11/05/23 22:21: POC Glucose 244 H 11/06/23 05:44: WBC 6.4, RBC 2.76 L, Hgb 8.3 L, Hct 26.7 L, MCV 96.7, MCH 30.1, MCHC 31.1 L, RDW Std Deviation 48.9 H, RDW Coeff of Luciano 13.8, Plt Count 123 L, MPV 11.5, Immature Gran % (Auto) 0.500, Neut % (Auto) 67.6, Lymph % (Auto) 19.7, [place] % (Auto) 9.6, Eos % (Auto) 2.0, Baso % (Auto) 0.6, Absolute Neuts (auto) 4.3, Absolute Lymphs (auto) 1.26, Nucleated RBC % 0, Sodium 138, Potassium 3.7, Chloride 106, Carbon Dioxide 25.0, Anion Gap 7, BUN 38 H, Creatinine 6.03 H, Estim Creat Clear Calc 18.84, Est GFR (MDRD) Af Amer 10 L, Est GFR (MDRD) Non-Af 8 L, BUN/Creatinine Ratio 6.3 L, Glucose 184 H, Calcium 8.2 L 11/06/23 10:46: POC Glucose 166 H Micro: Microbiology 11/04/23 14:56 Wound - Leg, Left Gram Stain - Final 11/04/23 14:56 Wound - Leg, Left Wound Culture - Preliminary No growth-Final to follow 11/04/23 14:56 Wound - Leg, Left Anaerobic Culture - Preliminary No growth in 48 hours. 11/04/23 14:56 Wound - Leg, Left Gram Stain - Final 11/04/23 14:56 Wound - Leg, Left Wound Culture - Preliminary GNR Poss Pseudomonas sp 11/04/23 14:56 Wound - Leg, Left Anaerobic Culture - Preliminary No growth in 48 hours. 11/02/23 08:00 Abs - Leg Gram Stain - Final 11/02/23 08:00 Abs - Leg Wound Culture - Preliminary Gram positive yen GNR Poss Pseudomonas sp 11/04/23 14:56 Tissue - Leg, Left Gram Stain - Final 11/04/23 14:56 Tissue - Leg, Left Wound Culture - Final Serratia marcescens 11/02/23 20:51 Wound - Leg, Left Skin and Soft Tissue MRSA/MSSA (PCR - Final Physical Exam Narrative no obvious distress no pallor no icterus no JVD s1s2 no murmurs lungs clear abdomen soft no organomegaly no edema no cyanosis Assessment & Plan Assessment/Plan (1) ESRD (end stage renal disease): PLAN: On hemodialysis., Thursday, , Thursday schedule. Left lower extremity cellulitis. ID on consult Dialysis tomorrow
--- NOTE | 2023-11-06 12:24 | PN_ITS ---
Subjective Subjective Patient seen and examined. She says she feels weak and tired. She admitted to pain in her left lower extremity. She denied any fever, chills, cough, chest pain, palpitations, dizziness, nausea, vomiting or any other symptoms. Review of systems is otherwise negative. She has remained hemodynamically stable. Objective Data Objective Data Vital Signs: Vital Signs Temp Pulse Resp BP Pulse Ox O2 Del Method O2 Flow Rate 98.9 F 97 17 104/78 93 Room Air 2 11/06/23 10:19 11/06/23 10:19 11/06/23 10:19 11/06/23 10:19 11/06/23 10:19 11/06/23 10:19 11/06/23 07:46 Oxygen Flow Rate (L/min) 2 Oxygen Delivery Method Room Air Weight: 365 lb 15.477 oz Body Mass Index (BMI) 62.4 Intake & Output: Intake and Output for Last 24 Hours 11/04/23 11/05/23 11/06/23 23:59 23:59 23:59 Intake Total 450 / 450 900 / 900 Output Total 1640 / 1640 Balance 450 / 450 -740 / -740 Lab / Micro Data 11/06/23 05:44 11/06/23 05:44 Labs: Laboratory Results - last 24 hr 11/05/23 12:20: WBC 6.3, RBC 3.11 L, Hgb 9.4 L, Hct 30.3 L, MCV 97.4, MCH 30.2, MCHC 31.0 L, RDW Std Deviation 48.9 H, RDW Coeff of Luciano 13.8, Plt Count 125 L, MPV 11.1, Immature Gran % (Auto) 0.500, Neut % (Auto) 73.0 H, Lymph % (Auto) 15.5 L, [place] % (Auto) 8.6, Eos % (Auto) 1.9, Baso % (Auto) 0.5, Absolute Neuts (auto) 4.6, Absolute Lymphs (auto) 0.98, Nucleated RBC % 0, Sodium 135 L, Potassium 3.8, Chloride 103, Carbon Dioxide 26.0, Anion Gap 6, BUN 34 H, C reatinine 4.57 H, Estim Creat Clear Calc 24.67, Est GFR (MDRD) Af Amer 13 L, Est GFR (MDRD) Non-Af 11 L, BUN/Creatinine Ratio 7.4 L, Glucose 162 H, Calcium 8.5 11/05/23 12:42: POC Glucose 148 H 11/05/23 15:44: POC Glucose 165 H 11/05/23 18:05: Random Vancomycin 18.3 H 11/05/23 22:21: POC Glucose 244 H 11/06/23 05:44: WBC 6.4, RBC 2.76 L, Hgb 8.3 L, Hct 26.7 L, MCV 96.7, MCH 30.1, MCHC 31.1 L, RDW Std Deviation 48.9 H, RDW Coeff of Luciano 13.8, Plt Count 123 L, MPV 11.5, Immature Gran % (Auto) 0.500, Neut % (Auto) 67.6, Lymph % (Auto) 19.7, [place] % (Auto) 9.6, Eos % (Auto) 2.0, Baso % (Auto) 0.6, Absolute Neuts (auto) 4.3, Absolute Lymphs (auto) 1.26, Nucleated RBC % 0, Sodium 138, Potassium 3.7, Chloride 106, Carbon Dioxide 25.0, Anion Gap 7, BUN 38 H, Creatinine 6.03 H, Estim Creat Clear Calc 18.84, Est GFR (MDRD) Af Amer 10 L, Est GFR (MDRD) Non-Af 8 L, BUN/Creatinine Ratio 6.3 L, Glucose 184 H, Calcium 8.2 L 11/06/23 10:46: POC Glucose 166 H Micro: Microbiology 11/04/23 14:56 Wound - Leg, Left Gram Stain - Final 11/04/23 14:56 Wound - Leg, Left Wound Culture - Preliminary No growth-Final to follow 11/04/23 14:56 Wound - Leg, Left Anaerobic Culture - Preliminary No growth in 48 hours. 11/04/23 14:56 Wound - Leg, Left Gram Stain - Final 11/04/23 14:56 Wound - Leg, Left Wound Culture - Preliminary GNR Poss Pseudomonas sp 11/04/23 14:56 Wound - Leg, Left Anaerobic Culture - Preliminary No growth in 48 hours. 11/02/23 08:00 Abs - Leg Gram Stain - Final 11/02/23 08:00 Abs - Leg Wound Culture - Preliminary Gram positive yen GNR Poss Pseudomonas sp 11/04/23 14:56 Tissue - Leg, Left Gram Stain - Final 11/04/23 14:56 Tissue - Leg, Left Wound Culture - Final Serratia marcescens 11/02/23 20:51 Wound - Leg, Left Skin and Soft Tissue MRSA/MSSA (PCR - Final Physical Exam Const alert and oriented x3 Constitutional Narrative: super morbid obesity, looks anxious due to pain General Appearance: cooperative, well kempt and well developed Orientation / Consciousness: awake, oriented to person, oriented to place and oriented to time HEENT normocephalic, head/scalp atraumatic, moist oral mucous membranes and oropharynx normal Eyes PERRL, EOMs intact bilaterally and conjunctivae normal Neck no lymphadenopathy, supple, no JVD, thyroid normal and no carotid bruits Lymph Lymphatic: no lymphadenopathy noted and no lymphedema noted Resp normal respiratory effort, normal air movement, no retractions, no use of accessory muscles and clear to auscultation bilaterally Auscultation: Negative for rales, rhonchi or wheezes Cardio regular rate, regular rhythm, S1 normal heart sound, S2 normal heart sound, no murmurs and no gallops GI normal to inspection, nondistended, normoactive bowel sounds, soft to palpation, non-tender and non-distended GI Narrative: obese abdomen Extremity Extremity Narrative: LLE wrapped in bandage Skin Skin Narrative: as under extremities Neuro oriented x3, CN's II-XII intact bilaterally, moves all extremities, no focal motor deficits, no sensory deficits noted and deep tendon reflexes 2+ bilaterally Sensorium / Orientation: awake and alert Speech: speech normal Motor Exam: strength 5/5 throughout and general weakness Psych thought process normal, cooperative and affect normal Mood & Affect: flat affect Assessment & Plan Assessment/Plan (1) Cellulitis of left lower limb: (2) ESRD (end stage renal disease): PLAN: Plan #Cellulitis of hte LLE * failed outpatient therapy * ID and podiatry on board * s/p excisional debridement of LLE, with delayed closure of LLE wound. * on IV vancomycin and ceftriaxone * per ID, to be on cephalexin 500mg bid and ciprofloxacin 500mg daily x 7 days. * * * #Pancytopenia: * Hemoglobin today is 8.3, with platelets of 123 today and wbc of 6.4. Etiology is not very clear. * platelets are 123 today. * Will continue monitoring closely and if it drops further consider discontinuing heparin. * #Type 2 diabetes mellitus:A1C is 8.5. On Lantus 30 units nightly as well as glipizide. Insulin sliding scale. Accu-Cheks ACHS. . #Hypertension: On metoprolol and lisinopril. BP has been running low, though asymptomatic. Started on midodrine today. Cannnot hydrate due to ESRD. BP meds held. #Hypothyroidism: on synthroid #Hyperlipidemia: On statin #ESRD: on HD Tuesdays, and Saturdays. Nephrology on board. #JOHNY: noncompliant with her CPAP. Counseled to comply with CPAP #Super morbid obesity: BMi is 62.7. Complicates acute care, expected recovery and prognosis DVT prophylaxis: on heparin Charges/Coding Visit Charges Inpatient E&M: 93067 Subs Hosp L2
--- NOTE | 2023-11-06 12:30 | CASEMGMT ---
BHARGAVI CM into pt room. Pt states would like PT and OT along with SN with resumption of care with [facility] agency. Pt states she will notify [facility] once DC to resume dialysis treatment with them. Pt denies any questions or concerns at this time.
[2023-11-06] MEDS: Pantoprazole Sodium 40 MG Tablet PO (13:06)
[2023-11-06] MEDS: Famotidine 20 MG Tablet PO (13:06)
[2023-11-06] MEDS: Midodrine HCl 5 MG Tablet 10 MG PO ×2 (13:06→17:59)
--- NOTE | 2023-11-06 15:29 | CASEMGMT ---
Faxed [facility] order to [place].
[2023-11-06] MEDS: proCHLORPERazine 10 MG/2 ML Vial 5 MG IV (15:49)
[2023-11-06] MEDS: 0.9% Saline Lock 10 ML Syringe IV (15:50)
[2023-11-06 16:39] LABS: Bedside Glucose 173 mg/dL (74-106)
[2023-11-06] MEDS: 0.9% Normal Saline (500mL Bag) 500 ML 999 ML IV (16:50)
[2023-11-06 17:23] LABS: Bedside Glucose 171 mg/dL (74-106)
[2023-11-06] MEDS: Piperacil/Tazobactam 3.375 GM in 0.9% Normal Saline (50mL MB+) 50 ML IV (17:58)
[2023-11-06] MEDS: 0.9% Normal Saline (250mL Bag) 250 ML 15 ML IV (17:59)
[2023-11-06] MEDS: Budesonide Respules 0.5 MG/2 ML AMPUL.NEB. INHALATION (19:18)
[2023-11-06] MEDS: Insulin Glargine-YFGN 100 UNIT/ML Pen 30 UNIT SC (21:28)
[2023-11-06] MEDS: Montelukast 10 MG Tablet PO (21:30)
[2023-11-06] MEDS: Atorvastatin Calcium 40 MG Tablet PO (21:30)
[2023-11-06 22:42] LABS: Bedside Glucose 185 mg/dL (74-106)
[2023-11-07] VITALS (12 sets, daily range): BP systolic 108–278; BP diastolic 51–97; PULSE 88–106; RESP 16–18; TEMP 36.2–37.1; O2SAT 93–99; BMI 62.4; BMI 61.2; BMI 62.1
[2023-11-07] MEDS: Ondansetron 4 MG/2 ML Vial IV (03:12)
[2023-11-07 06:09] LABS: Basophil# 0.04 X10^3/uL; Basophil% 0.4 % (0-1); Eosinophil# 0.19 X10^3/uL; Hematocrit 26.8 % (37-47); Hemoglobin 8.4 g/dL (12.0-15.0); Lymphocyte % 14.8 % (19-41); Mean Corp Hgb Conc 31.3 g/dL (32-36); Mean Corpuscular Hgb 30.1 pg (27.0-32.0); Mean Corpuscular Volume 96.1 fL (81-99); Mean Platelet Vol. 10.4 fl (6.2-12.0); Monocyte# 0.77 X10^3/uL; Monocyte% 8.1 % (0-10); NRBC Flagged by Analyzer 0 % (0-5); Neutrophil # 7.03 X10^3/uL (2.7-7.7); Neutrophil % 74.1 % (47-70); Platelet Count 184 K/mm3 (150-450); RBC Distribution Width CV 13.7 % (11.6-14.6); RBC Distribution Width SD 48.1 fl (35.1-43.9); Red Blood Count 2.79 M/mm3 (4.2-5.4); White Blood Count 9.5 K/mm3 (4.4-11.0)
[2023-11-07] MEDS: Heparin Injection (Vial) 5,000 UNIT/ML VIAL 5000 UNIT SC ×3 (06:19→22:54)
[2023-11-07 06:34] LABS: Vancomycin, Random Level 19.1 ug/mL (0.0-15.0)
[2023-11-07 06:36] LABS: Anion Gap 7 (5-15); BUN 46 mg/dL (7-18); BUN/Creat Ratio 6.9 RATIO (10-20); Calcium,Total 8.5 mg/dL (8.5-10.1); Chloride 105 mmol/L (98-107); EST Glomerular Filtration Rate 7 mL/min (>60); Est Glom Filt Rate - Afr Amer 9 mL/min (>60); Estimated Creatinine Clearance 16.94 ml/min; Glucose 164 mg/dL (74-106); Potassium 3.4 mmol/L (3.5-5.1); Sodium Level 136 mmol/L (136-145)
[2023-11-07 06:42] LABS: Bedside Glucose 150 mg/dL (74-106)
[2023-11-07] MEDS: 0.9% Normal Saline 1,000 ML IV.SOLN. 1000 ML OPERA.SITE (06:53)
[2023-11-07] MEDS: 0.9% Saline Lock 10 ML Syringe IV ×3 (06:53→10:15)
--- NOTE | 2023-11-07 06:55 | PCM.RX.CS ---
Consult Antibiotic Management Pharmacy has been consulted to manage selected antibiotic: Vancomycin Type of Intervention Type of Consult: Follow-up Labs Labs: Sodium 136 mmol/L (136-145) 11/07/23 06:01 Potassium 3.4 mmol/L (3.5-5.1) L 11/07/23 06:01 Chloride 105 mmol/L (98-107) 11/07/23 06:01 Carbon Dioxide 24.0 mmol/L (21.0-32.0) 11/07/23 06:01 Anion Gap 7 (5-15) 11/07/23 06:01 BUN 46 mg/dL (7-18) H 11/07/23 06:01 Creatinine 6.70 mg/dL (0.55-1.02) H 11/07/23 06:01 Est GFR (MDRD) Af Amer 9 mL/min (>60) L 11/07/23 06:01 Est GFR (MDRD) Non-Af 7 mL/min (>60) L 11/07/23 06:01 BUN/Creatinine Ratio 6.9 RATIO (10-20) L 11/07/23 06:01 Glucose 164 mg/dL (74-106) H 11/07/23 06:01 Random Vancomycin 19.1 ug/mL (0.0-15.0) H 11/07/23 06:01 Microbiology Microbiology: Microbiology 11/04/23 14:56 Wound - Leg, Left Gram Stain - Final 11/04/23 14:56 Wound - Leg, Left Wound Culture - Preliminary No growth-Final to follow 11/04/23 14:56 Wound - Leg, Left Anaerobic Culture - Preliminary No growth in 48 hours. 11/04/23 14:56 Wound - Leg, Left Gram Stain - Final 11/04/23 14:56 Wound - Leg, Left Wound Culture - Preliminary GNR Poss Pseudomonas sp 11/04/23 14:56 Wound - Leg, Left Anaerobic Culture - Preliminary No growth in 48 hours. 11/02/23 08:00 Abs - Leg Gram Stain - Final 11/02/23 08:00 Abs - Leg Wound Culture - Preliminary Gram positive yen GNR Poss Pseudomonas sp 11/04/23 14:56 Tissue - Leg, Left Gram Stain - Final 11/04/23 14:56 Tissue - Leg, Left Wound Culture - Final Serratia marcescens 11/02/23 20:51 Wound - Leg, Left Skin and Soft Tissue MRSA/MSSA (PCR - Final Pharmacy Plan for Drug Dosing Pharmacy Plan for Drug Dosing: Pharmacy Service will continue to monitor and adjust dosing as required. LEVEL 19.1, PER DIALYSIS PROTOCOL, GIVE 500MG AFTER DIALYSIS AND DRAW LEVEL PRIOR TO NEXT DIALYSIS Follow-Up Labs Follow-Up Labs: Trough: Vancomycin Date/Time Labs Ordered Labs to be done on [date and time ordered]: 11/09 @ 0600
[2023-11-07] MEDS: PureFlow B 4K Dialysis Soln 1 BAG BAG 6 BAG PF (07:24)
[2023-11-07 07:27] LABS: Ferritin 461 ng/mL (8-252); Iron 27 ug/dL (50-170); Iron Binding Capacity,Total 134 ug/dL (250-450); PERCENT IRON SATURATION 20.1 % (15.0-55.0)
--- NOTE | 2023-11-07 07:50 | CPS ---
pt refuses treatments and pep therapy, asked Rodger to d/c treatment keep PRN she approved
--- NOTE | 2023-11-07 09:37 | PN_ITS ---
Subjective Subjective Patient seen and examined. She was having dialysis. She had no active complaints. She was a bit lethargic but much better than yesterday. She was hypotensive yesterday and had to be given some fluids. Blood cultures were ordered and antibiotics broadened to IV zosyn. Objective Data Objective Data Vital Signs: Vital Signs Temp Pulse Resp BP Pulse Ox O2 Del Method O2 Flow Rate 98.7 F 88 16 127/83 H 94 Room Air 2 11/07/23 03:16 11/07/23 09:00 11/07/23 09:00 11/07/23 09:00 11/07/23 09:00 11/07/23 09:00 11/06/23 07:46 Oxygen Flow Rate (L/min) 2 Oxygen Delivery Method Room Air Weight: 358 lb 14.601 oz Body Mass Index (BMI) 61.2 Intake & Output: Intake and Output for Last 24 Hours 11/05/23 11/06/23 11/07/23 23:59 23:59 23:59 Intake Total 900 / 900 820.5 / 820.5 50 / 50 Output Total 1640 / 1640 Balance -740 / -740 820.5 / 820.5 50 / 50 Lab / Micro Data 11/07/23 06:01 11/07/23 06:01 Labs: Laboratory Results - last 24 hr 11/06/23 06:16: POC Glucose 173 H 11/06/23 10:46: POC Glucose 166 H 11/06/23 16:24: POC Glucose 171 H 11/06/23 21:25: POC Glucose 185 H 11/07/23 06:01: WBC 9.5, RBC 2.79 L, Hgb 8.4 L, Hct 26.8 L, MCV 96.1, MCH 30.1, MCHC 31.3 L, RDW Std Deviation 48.1 H, RDW Coeff of Luciano 13.7, Plt Count 184, MPV 10.4, Immature Gran % (Auto) 0.600, Neut % (Auto) 74.1 H, Lymph % (Auto) 14.8 L, [place] % (Auto) 8.1, Eos % (Auto) 2.0, Baso % (Auto) 0.4, Absolute Neuts (auto) 7.0, Absolute Lymphs (auto) 1.40, Nucleated RBC % 0, Sodium 136, Potassium 3.4 L , Chloride 105, Carbon Dioxide 24.0, Anion Gap 7, BUN 46 H, Creatinine 6.70 H, Estim Creat Clear Calc 16.94, Est GFR (MDRD) Af Amer 9 L, Est GFR (MDRD) Non-Af 7 L, BUN/Creatinine Ratio 6.9 L, Glucose 164 H, Calcium 8.5, Iron 27 L, TIBC 134 L, Iron Saturation 20.1, Ferritin 461 H, Random Vancomycin 19.1 H 11/07/23 06:18: POC Glucose 150 H Micro: Microbiology 11/04/23 14:56 Wound - Leg, Left Gram Stain - Final 11/04/23 14:56 Wound - Leg, Left Wound Culture - Preliminary No growth-Final to follow 11/04/23 14:56 Wound - Leg, Left Anaerobic Culture - Preliminary No growth in 48 hours. 11/04/23 14:56 Wound - Leg, Left Gram Stain - Final 11/04/23 14:56 Wound - Leg, Left Wound Culture - Preliminary GNR Poss Pseudomonas sp 11/04/23 14:56 Wound - Leg, Left Anaerobic Culture - Preliminary No growth in 48 hours. 11/02/23 08:00 Abs - Leg Gram Stain - Final 11/02/23 08:00 Abs - Leg Wound Culture - Preliminary Gram positive yen GNR Poss Pseudomonas sp 11/04/23 14:56 Tissue - Leg, Left Gram Stain - Final 11/04/23 14:56 Tissue - Leg, Left Wound Culture - Final Serratia marcescens 11/02/23 20:51 Wound - Leg, Left Skin and Soft Tissue MRSA/MSSA (PCR - Final Physical Exam Const alert Constitutional Narrative: super morbid obesity, lethargic General Appearance: cooperative Orientation / Consciousness: awake and lethargic HEENT normocephalic, head/scalp atraumatic, moist oral mucous membranes and oropharynx normal Eyes PERRL, EOMs intact bilaterally and conjunctivae normal Neck no lymphadenopathy, supple, no JVD, thyroid normal and no carotid bruits General: trachea midline Lymph Lymphatic: no lymphadenopathy noted and no lymphedema noted Resp Resp Narrative: diminished breath sounds bibasally, no wheezes or crackles. Auscultation: Negative for rales, rhonchi or wheezes Cardio regular rate, regular rhythm, S1 normal heart sound, S2 normal heart sound, no murmurs and no gallops GI normal to inspection, nondistended, normoactive bowel sounds, soft to palpation, non-tender and non-distended GI Narrative: obese abdomen Extremity Extremity Narrative: LLE wrapped in bandage Skin Skin Narrative: as under extremities Neuro oriented x3, CN's II-XII intact bilaterally, moves all extremities, no focal motor deficits, no sensory deficits noted and deep tendon reflexes 2+ bilaterally Sensorium / Orientation: awake and alert Speech: speech normal Motor Exam: strength 5/5 throughout and general weakness Psych Psych Narrative: flat affect Mood & Affect: flat affect Assessment & Plan Assessment/Plan (1) Cellulitis of left lower limb: (2) ESRD (end stage renal disease): PLAN: Plan #Cellulitis of hte LLE * failed outpatient therapy * ID and podiatry on board * s/p excisional debridement of LLE, with delayed closure of LLE wound. * on IV vancomycin and ceftriaxone; ceftriaxone broadened to zosyn. * per ID, to be on cephalexin 500mg bid and ciprofloxacin 500mg daily x 7 days. * * #Hypokalemia: potassium is 3.4. Will replace and trend. #Pancytopenia: * Hemoglobin today is 8.4, with platelets of 184 today and wbc of 9.5. Etiology is not very clear. * platelets are 123 today. * Will continue monitoring closely and if it drops further consider discontinuing heparin. * #Type 2 diabetes mellitus:A1C is 8.5. On Lantus 30 units nightly as well as glipizide. Insulin sliding scale. Accu-Cheks ACHS. #Hypertension: On metoprolol and lisinopril. BP has been running low, though asymptomatic. Started on midodrine today. Cannnot hydrate due to ESRD. BP meds held. #Hypothyroidism: on synthroid #Hyperlipidemia: On statin #ESRD: on HD Tuesdays, and Saturdays. Nephrology on board. #JOHNY: noncompliant with her CPAP. Counseled to comply with CPAP #Super morbid obesity: BMi is 62.7. Complicates acute care, expected recovery and prognosis DVT prophylaxis: on heparin Charges/Coding Visit Charges Inpatient E&M: 87748 Subs Hosp L2
[2023-11-07] MEDS: Heparin 10,000 UNITS/10 ML Vial IV (09:56)
[2023-11-07] MEDS: proCHLORPERazine 10 MG/2 ML Vial 5 MG IV (10:15)
--- NOTE | 2023-11-07 10:17 | NURSING ---
0930 unable to continue dialysis treatment due to high alarms and clotting of cartidge. Dr Mack notified.
[2023-11-07] MEDS: Fleet Enema 133 ML RC (11:22)
[2023-11-07] MEDS: Piperacil/Tazobactam 3.375 GM in 0.9% Normal Saline (50mL MB+) 50 ML IV ×2 (11:22→22:51)
--- NOTE | 2023-11-07 12:22 | RAD_ITS ---
STUDY: X-RAY - ABDOMEN/PELVIS REASON FOR EXAM: Female, 42 years old. Abdominal pain. TECHNIQUE: 4 AP supine views of the abdomen and pelvis. COMPARISON: None. FINDINGS: There are surgical clips in the left upper quadrant. There is no bowel obstruction. There is air and stool to the level of the rectum. The visualized osseous structures are within normal limits. RAD/Abdomen Single View (Portable) IMPRESSION: No bowel obstruction. Electronically Signed: Avtar Benjamin MD at 13:37 EDT ,
--- NOTE | 2023-11-07 12:30 | NURSING ---
Pt is down for her KUB. This RN was concerned b/c pt is vomitting and with constant nausea. Pt unsure when she had a Bowel movement last. Last BM charted was 11/01/23. This RN gave Fleets Enema with some difficulty as stool was getting in the tip of the bottle. This RN was able to give most of the enema but pt had alot of trouble having her bowels move. Pt strained alot. PT was able to have a medium sized BM but pt still complains of nausea and not feeling good. This RN informed Dr. Soares of all this information and recommended getting xray for her abd.
--- NOTE | 2023-11-07 13:01 | PN_ITS ---
Subjective Subjective Patient lethargic this morning. Some pain to left lower extremity. Denies any fever chills nausea vomiting chest pain calf pain shortness of breath. Some hypotension overnight. Medicine broaden antibiotics to Zosyn. Objective Data Objective Data Vital Signs: Vital Signs Temp Pulse Resp BP Pulse Ox O2 Del Method O2 Flow Rate 98.2 F 106 H 18 117/61 97 Room Air 2 11/07/23 10:03 11/07/23 10:03 11/07/23 10:03 11/07/23 10:03 11/07/23 10:03 11/07/23 10:03 11/06/23 07:46 Oxygen Flow Rate (L/min) 2 Oxygen Delivery Method Room Air Weight: 162.8 kg Body Mass Index (BMI) 61.2 Intake & Output: Intake and Output for Last 24 Hours 11/05/23 11/06/23 11/07/23 23:59 23:59 23:59 Intake Total 900 / 900 820.5 / 820.5 100 / 100 Output Total 1640 / 1640 1794 / 1794 Balance -740 / -740 820.5 / 820.5 -1694 / -1694 Lab / Micro Data 11/07/23 06:01 11/07/23 06:01 Labs: Laboratory Results - last 24 hr 11/06/23 06:16: POC Glucose 173 H 11/06/23 16:24: POC Glucose 171 H 11/06/23 21:25: POC Glucose 185 H 11/07/23 06:01: WBC 9.5, RBC 2.79 L, Hgb 8.4 L, Hct 26.8 L, MCV 96.1, MCH 30.1, MCHC 31.3 L, RDW Std Deviation 48.1 H, RDW Coeff of Luciano 13.7, Plt Count 184, MPV 10.4, Immature Gran % (Auto) 0.600, Neut % (Auto) 74.1 H, Lymph % (Auto) 14.8 L, [place] % (Auto) 8.1, Eos % (Auto) 2.0, Baso % (Auto) 0.4, Absolute Neuts (auto) 7.0, Absolute Lymphs (auto) 1.40, Nucleated RBC % 0, Sodium 136, Potassium 3.4 L , Chloride 105, Carbon Dioxide 24.0, Anion Gap 7, BUN 46 H, Creatinine 6.70 H, Estim Creat Clear Calc 16.94, Est GFR (MDRD) Af Amer 9 L, Est GFR (MDRD) Non-Af 7 L, BUN/Creatinine Ratio 6.9 L, Glucose 164 H, Calcium 8.5, Iron 27 L, TIBC 134 L, Iron Saturation 20.1, Ferritin 461 H, Random Vancomycin 19.1 H 11/07/23 06:18: POC Glucose 150 H Micro: Microbiology 11/04/23 14:56 Wound - Leg, Left Gram Stain - Final 11/04/23 14:56 Wound - Leg, Left Wound Culture - Final No growth aerobically. 11/04/23 14:56 Wound - Leg, Left Anaerobic Culture - Preliminary No growth in 48 hours. 11/04/23 14:56 Wound - Leg, Left Gram Stain - Final 11/04/23 14:56 Wound - Leg, Left Wound Culture - Preliminary Pseudomonas aeruginosa 11/04/23 14:56 Wound - Leg, Left Anaerobic Culture - Preliminary No growth in 48 hours. 11/02/23 08:00 Abs - Leg Gram Stain - Final 11/02/23 08:00 Abs - Leg Wound Culture - Final Gram positive yen Pseudomonas aeruginosa 11/04/23 14:56 Tissue - Leg, Left Gram Stain - Final 11/04/23 14:56 Tissue - Leg, Left Wound Culture - Final Serratia marcescens 11/02/23 20:51 Wound - Leg, Left Skin and Soft Tissue MRSA/MSSA (PCR - Final Physical Exam Narrative Neurovascular status unchanged. Well dressing left intact to left lower extremity. No evidence strikethrough. Assessment & Plan Assessment/Plan (1) ESRD (end stage renal disease): PLAN: Exam performed Patient had diffuse left lower extremity abscess formation, multifocal. Extensive surgical excision performed 11/04/2023. Intraoperative cultures growing Pseudomonas aeruginosa and Serratia marcescens. Patient receiving IV antibiotics specifically Zosyn. ID recommending p.o. antibiotics upon discharge. Due to some hypotension and lethargy patient continues in the hospital. Dressing left intact today we will plan for change on 11/09/2023. Patient stable for podiatry standpoint for discharge once medically stable. Patient will discharge with home health care dressing changes 2-3 times per week consisting of Betadine Adaptic 4 x 4's Kerlix and a multilayer compression wrap. 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
[2023-11-07] MEDS: Potassium Chloride Oral Tablet 20 MEQ 40 MEQ PO (13:15)
[2023-11-07 13:43] LABS: Bedside Glucose 186 mg/dL (74-106)
[2023-11-07] MEDS: Vancomycin IV 500 MG/100 ML BAG 100 MG IV (16:07)
[2023-11-07 16:57] LABS: Bedside Glucose 167 mg/dL (74-106)
[2023-11-07] MEDS: Menthol/Lanolin/Calamine/Znox 113 GM Tube 1 APPLIC TOPICAL (22:51)
[2023-11-07] MEDS: Gabapentin 100 MG Capsule 200 MG PO (22:51)
[2023-11-07] MEDS: Atorvastatin Calcium 40 MG Tablet PO (22:53)
[2023-11-07] MEDS: QUEtiapine 25 MG Tablet PO (22:53)
[2023-11-07] MEDS: Montelukast 10 MG Tablet PO (22:55)
[2023-11-07] MEDS: Insulin Glargine-YFGN 100 UNIT/ML Pen 30 UNIT SC (23:09)
[2023-11-07] MEDS: Insulin Lispro 100 UNIT/ML INSULN.PEN SC (23:09)
[2023-11-07] MEDS: Nystatin Powder 15gm Bottle 1 APPLIC TOPICAL (23:19)
[2023-11-07 23:43] LABS: Bedside Glucose 326 mg/dL (74-106)
[2023-11-08 04:54] VITALS: BMI 62.9
[2023-11-08] MEDS: Levothyroxine 25 MCG TABLET PO (05:57)
[2023-11-08] MEDS: Heparin Injection (Vial) 5,000 UNIT/ML VIAL 5000 UNIT SC (05:57)
[2023-11-08 06:07] VITALS: BP 120/64; PULSE 81; RESP 16; TEMP 36.7; O2SAT 97
[2023-11-08 06:33] LABS: Bedside Glucose 144 mg/dL (74-106)
[2023-11-08 07:02] LABS: Absolute Lymphocyte Count 1.36 X10^3/uL (0.83-4.51); Absolute Neutrophil Count 3.1 X10^3/uL (2.0-7.7); Basophil# 0.04 X10^3/uL; Basophil% 0.8 % (0-1); Eosinophil# 0.21 X10^3/uL; Hematocrit 24.8 % (37-47); Hemoglobin 7.7 g/dL (12.0-15.0); Lymphocyte # 1.36 X10^3/ul (0.83-4.51); Lymphocyte % 25.9 % (19-41); Mean Corpuscular Hgb 30.1 pg (27.0-32.0); Mean Corpuscular Volume 96.9 fL (81-99); Mean Platelet Vol. 10.4 fl (6.2-12.0); Monocyte# 0.49 X10^3/uL; Monocyte% 9.3 % (0-10); NRBC Flagged by Analyzer 0 % (0-5); Neutrophil # 3.14 X10^3/uL (2.7-7.7); Neutrophil % 59.6 % (47-70); Platelet Count 173 K/mm3 (150-450); RBC Distribution Width CV 13.9 % (11.6-14.6); Red Blood Count 2.56 M/mm3 (4.2-5.4); White Blood Count 5.3 K/mm3 (4.4-11.0)
[2023-11-08 07:07] LABS: Anion Gap 4 (5-15); BUN 36 mg/dL (7-18); BUN/Creat Ratio 7.2 RATIO (10-20); Calcium,Total 8.6 mg/dL (8.5-10.1); Chloride 109 mmol/L (98-107); Creatinine, Serum 4.99 mg/dL (0.55-1.02); EST Glomerular Filtration Rate 10 mL/min (>60); Est Glom Filt Rate - Afr Amer 12 mL/min (>60); Estimated Creatinine Clearance 22.89 ml/min; Glucose 133 mg/dL (74-106); Potassium 3.5 mmol/L (3.5-5.1); Sodium Level 139 mmol/L (136-145)
[2023-11-08] MEDS: Gabapentin 100 MG Capsule 200 MG PO ×3 (08:57→17:38)
[2023-11-08] MEDS: Ferrous Sulfate 325 MG Tablet PO (08:58)
[2023-11-08] MEDS: Famotidine 20 MG Tablet PO (08:58)
[2023-11-08] MEDS: Piperacil/Tazobactam 3.375 GM in 0.9% Normal Saline (50mL MB+) 50 ML IV ×2 (08:59→21:20)
[2023-11-08] MEDS: Pantoprazole Sodium 40 MG Tablet PO (08:59)
[2023-11-08] MEDS: Nystatin Powder 15gm Bottle 1 APPLIC TOPICAL ×2 (09:04→21:19)
[2023-11-08 09:05] VITALS: BP 136/83; PULSE 79; RESP 18; TEMP 36.5; O2SAT 98
--- NOTE | 2023-11-08 09:28 | PN_ITS ---
Subjective Subjective Patient seen and examined. She had no active complaints and was asking about going home. 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 Patient says she is feeling much better today and is willing to work with therapy. Of note her hemoglobin has continued to drop and is down to 7.7 today. Of note was around 11 on admission a few days ago. She denies any blood in her stool. Iron profile showed low iron levels with low TIBC levels and low normal iron saturation levels. Ferritin was elevated. Objective Data Objective Data Vital Signs: Vital Signs Temp Pulse Resp BP Pulse Ox O2 Del Method O2 Flow Rate 97.7 F L 79 18 136/83 H 98 Room Air 2 11/08/23 09:05 11/08/23 09:05 11/08/23 09:05 11/08/23 09:05 11/08/23 09:05 11/08/23 09:05 11/06/23 07:46 Oxygen Flow Rate (L/min) 2 Oxygen Delivery Method Room Air Weight: 368 lb 13.334 oz Body Mass Index (BMI) 62.9 Intake & Output: Intake and Output for Last 24 Hours 11/06/23 11/07/23 11/08/23 23:59 23:59 23:59 Intake Total 820.5 / 820.5 454.75 / 454.75 200 / 200 Output Total 1794 / 1794 Balance 820.5 / 820.5 -1339.25 / -1339.25 200 / 200 Lab / Micro Data 11/08/23 06:45 11/08/23 06:45 Labs: Laboratory Results - last 24 hr 11/07/23 10:59: POC Glucose 186 H 11/07/23 16:32: POC Glucose 167 H 11/07/23 23:07: POC Glucose 326 H 11/08/23 06:00: POC Glucose 144 H 11/08/23 06:45: WBC 5.3, RBC 2.56 L, Hgb 7.7 L, Hct 24.8 L, MCV 96.9, MCH 30.1, MCHC 31.0 L, RDW Std Deviation 49.0 H, RDW Coeff of Luciano 13.9, Plt Count 173, MPV 10.4, Immature Gran % (Auto) 0.400, Neut % (Auto) 59.6, Lymph % (Auto) 25.9, [place] % (Auto) 9.3, Eos % (Auto) 4.0, Baso % (Auto) 0.8, Absolute Neuts (auto) 3.1, Absolute Lymphs (auto) 1.36, Nucleated RBC % 0, Sodium 139, Potassium 3.5, Chloride 109 H, Carbon Dioxide 26.0, Anion Gap 4 L, BUN 36 H, Creatinine 4.99 H, Estim Creat Clear Calc 22.89, Est GFR (MDRD) Af Amer 12 L, Est GFR (MDRD) Non-Af 10 L, BUN/Creatinine Ratio 7.2 L, Glucose 133 H, Calcium 8.6 Micro: Microbiology 11/04/23 14:56 Wound - Leg, Left Gram Stain - Final 11/04/23 14:56 Wound - Leg, Left Wound Culture - Final No growth aerobically. 11/04/23 14:56 Wound - Leg, Left Anaerobic Culture - Preliminary No growth in 48 hours. 11/04/23 14:56 Wound - Leg, Left Gram Stain - Final 11/04/23 14:56 Wound - Leg, Left Wound Culture - Preliminary Pseudomonas aeruginosa 11/04/23 14:56 Wound - Leg, Left Anaerobic Culture - Preliminary No growth in 48 hours. 11/02/23 08:00 Abs - Leg Gram Stain - Final 11/02/23 08:00 Abs - Leg Wound Culture - Final Gram positive yen Pseudomonas aeruginosa 11/04/23 14:56 Tissue - Leg, Left Gram Stain - Final 11/04/23 14:56 Tissue - Leg, Left Wound Culture - Final Serratia marcescens 11/02/23 20:51 Wound - Leg, Left Skin and Soft Tissue MRSA/MSSA (PCR - Final Radiography Diagnostic Testing: Radiology Impression KUB X-Ray 11/07/23 12:22 IMPRESSION: No bowel obstruction. Electronically Signed: Avtar Benjamin MD at 13:37 EDT , Physical Exam Const alert, oriented x3 and no apparent distress Constitutional Narrative: super morbid obesity General Appearance: cooperative, well kempt and well developed Orientation / Consciousness: awake, oriented to person, oriented to place, oriented to time and lethargic HEENT normocephalic, head/scalp atraumatic, moist oral mucous membranes and oropharynx normal Eyes PERRL, EOMs intact bilaterally and conjunctivae normal Neck no lymphadenopathy, supple, no JVD, thyroid normal and no carotid bruits General: trachea midline Lymph Lymphatic: no lymphadenopathy noted and no lymphedema noted Resp normal respiratory effort, normal air movement, no retractions, no use of accessory muscles and clear to auscultation bilaterally Resp Narrative: diminished breath sounds bibasally, no wheezes or crackles. Auscultation: Negative for rales, rhonchi or wheezes Cardio regular rate, regular rhythm, S1 normal heart sound, S2 normal heart sound, no murmurs and no gallops GI normal to inspection, nondistended, normoactive bowel sounds, soft to palpation, non-tender and non-distended GI Narrative: obese abdomen Extremity Extremity Narrative: LLE wrapped in bandage Skin Skin Narrative: as under extremities Neuro oriented x3, CN's II-XII intact bilaterally, moves all extremities, no focal motor deficits, no sensory deficits noted and deep tendon reflexes 2+ bilaterally Sensorium / Orientation: awake and alert Speech: speech normal Motor Exam: strength 5/5 throughout and general weakness Psych thought process normal, cooperative and affect normal Psych Narrative: flat affect Appearance: appropriate Mood & Affect: flat affect Assessment & Plan Assessment/Plan (1) Cellulitis of left lower limb: (2) ESRD (end stage renal disease): PLAN: Plan #Cellulitis of the LLE * failed outpatient therapy * ID and podiatry on board * s/p excisional debridement of LLE, with delayed closure of LLE wound. * on IV vancomycin and ceftriaxone; ceftriaxone broadened to zosyn. * per ID, to be on cephalexin 500mg bid and ciprofloxacin 500mg daily x 7 days. * wbc is 5.3 * blood cultures pending. Wound cultures grew Serratia marcescens and Pseudomonas aeruginosa * #Hypokalemia: potassium is 3.5. Will replace and trend. #Pancytopenia: * Hemoglobin has dropped further today to 7.7. WBC was 5's 5.3 and platelets up to 173. * Hemoglobin was around 11 on admission. Iron profile done showed evidence of anemia of chronic disease as iron level of 27 which is low. TIBC is also low at 134 and iron saturation is on the lower side of normal at 20.1 though ferritin is elevated at 461. * Heparin discontinued and will check stool for occult blood. Transfuse hemoglobin is less than 7 negative stool for occult blood is positive, will consult GI. * Of note patient is on iron supplementation but has been refusing to take it. * transfuse if Hb <7 * #Type 2 diabetes mellitus:A1C is 8.5. On Lantus 30 units nightly as well as glipizide. Insulin sliding scale. Accu-Cheks ACHS. #Hypertension: On metoprolol and lisinopril. BP meds held due to hypotension and patient started on midodrine yesterday #Hypothyroidism: on synthroid #Hyperlipidemia: On statin #ESRD: on HD Tuesdays, and Saturdays. Nephrology on board. #JOHNY: noncompliant with her CPAP. Counseled to comply with CPAP #Super morbid obesity: BMi is 62.7. Complicates acute care, expected recovery and prognosis DVT prophylaxis: heparin dc'd. NOw on SCDs Charges/Coding Visit Charges Inpatient E&M: 92386 Subs Hosp L2
--- NOTE | 2023-11-08 10:53 | PCM.PN.REN ---
Subjective Subjective No new complaints today. Objective Data Objective Data Vital Signs: Vital Signs Temp Pulse Resp BP Pulse Ox O2 Del Method O2 Flow Rate 97.7 F L 79 18 136/83 H 98 Room Air 2 11/08/23 09:05 11/08/23 09:05 11/08/23 09:05 11/08/23 09:05 11/08/23 09:05 11/08/23 09:05 11/06/23 07:46 Oxygen Flow Rate (L/min) 2 Oxygen Delivery Method Room Air Weight: 167.3 kg Body Mass Index (BMI) 62.9 Intake & Output: Intake and Output for Last 24 Hours 11/06/23 11/07/23 11/08/23 23:59 23:59 23:59 Intake Total 820.5 / 820.5 454.75 / 454.75 200 / 200 Output Total 1794 / 1794 Balance 820.5 / 820.5 -1339.25 / -1339.25 200 / 200 Lab / Micro Data 11/08/23 06:45 11/08/23 06:45 Labs: Laboratory Results - last 24 hr 11/07/23 10:59: POC Glucose 186 H 11/07/23 16:32: POC Glucose 167 H 11/07/23 23:07: POC Glucose 326 H 11/08/23 06:00: POC Glucose 144 H 11/08/23 06:45: WBC 5.3, RBC 2.56 L, Hgb 7.7 L, Hct 24.8 L, MCV 96.9, MCH 30.1, MCHC 31.0 L, RDW Std Deviation 49.0 H, RDW Coeff of Luciano 13.9, Plt Count 173, MPV 10.4, Immature Gran % (Auto) 0.400, Neut % (Auto) 59.6, Lymph % (Auto) 25.9, [place] % (Auto) 9.3, Eos % (Auto) 4.0, Baso % (Auto) 0.8, Absolute Neuts (auto) 3.1, Absolute Lymphs (auto) 1.36, Nucleated RBC % 0, Sodium 139, Potassium 3.5, Chloride 109 H, Carbon Dioxide 26.0, Anion Gap 4 L, BUN 36 H, Creatinine 4.99 H, Estim Creat Clear Calc 22.89, Est GFR (MDRD) Af Amer 12 L, Est GFR (MDRD) Non-Af 10 L, BUN/Creatinine Ratio 7.2 L, Glucose 133 H, Calcium 8.6 Micro: Microbiology 11/04/23 14:56 Wound - Leg, Left Gram Stain - Final 11/04/23 14:56 Wound - Leg, Left Wound Culture - Final No growth aerobically. 11/04/23 14:56 Wound - Leg, Left Anaerobic Culture - Preliminary No growth in 48 hours. 11/04/23 14:56 Wound - Leg, Left Gram Stain - Final 11/04/23 14:56 Wound - Leg, Left Wound Culture - Preliminary Pseudomonas aeruginosa 11/04/23 14:56 Wound - Leg, Left Anaerobic Culture - Preliminary No growth in 48 hours. 11/02/23 08:00 Abs - Leg Gram Stain - Final 11/02/23 08:00 Abs - Leg Wound Culture - Final Gram positive yen Pseudomonas aeruginosa 11/04/23 14:56 Tissue - Leg, Left Gram Stain - Final 11/04/23 14:56 Tissue - Leg, Left Wound Culture - Final Serratia marcescens 11/02/23 20:51 Wound - Leg, Left Skin and Soft Tissue MRSA/MSSA (PCR - Final Radiography Diagnostic Testing: Radiology Impression KUB X-Ray 11/07/23 12:22 IMPRESSION: No bowel obstruction. Electronically Signed: Avtar Benjamin MD at 13:37 EDT , Physical Exam Narrative no obvious distress no pallor no icterus no JVD s1s2 no murmurs lungs clear abdomen soft no organomegaly no edema no cyanosis Assessment & Plan Assessment/Plan (1) ESRD (end stage renal disease): PLAN: On hemodialysis., Thursday, , Thursday schedule. Yesterday she received a shot for treatment due to catheter malfunction. Catheter still flushes draws okay. Will continue to use this for now. Anemia. Low iron saturation. Will have to call her home dialysis unit but she tells me that she gets IV iron with dialysis. She was told that she has lower multiple times. No obvious source of blood loss. I will add IV iron with next dialysis session. Unlikely to absorb oral iron due to hemodialysis status.
[2023-11-08 12:49] LABS: Bedside Glucose 176 mg/dL (74-106)
[2023-11-08 15:00] VITALS: BP 128/79; PULSE 93; RESP 20; TEMP 36.9; O2SAT 96
[2023-11-08] MEDS: Insulin Lispro 100 UNIT/ML INSULN.PEN SC ×2 (16:12→21:19)
[2023-11-08 17:19] LABS: Bedside Glucose 244 mg/dL (74-106)
[2023-11-08] MEDS: Senna/Docusate Sodium 1 Tablet 2 TABLET PO (17:38)
[2023-11-08] MEDS: Menthol/Lanolin/Calamine/Znox 113 GM Tube 1 APPLIC TOPICAL (21:18)
[2023-11-08] MEDS: Atorvastatin Calcium 40 MG Tablet PO (21:19)
[2023-11-08] MEDS: Insulin Glargine-YFGN 100 UNIT/ML Pen 30 UNIT SC (21:19)
[2023-11-08] MEDS: QUEtiapine 25 MG Tablet PO (21:20)
[2023-11-08] MEDS: 0.9% Normal Saline (250mL Bag) 250 ML 15 ML IV (21:20)
[2023-11-08] MEDS: Montelukast 10 MG Tablet PO (21:20)
[2023-11-08 21:31] VITALS: BP 122/78; PULSE 93; RESP 16; TEMP 36.6; O2SAT 96
[2023-11-08 21:47] LABS: Bedside Glucose 298 mg/dL (74-106)
[2023-11-09] VITALS (12 sets, daily range): BP systolic 105–141; BP diastolic 66–102; PULSE 77–102; RESP 14–18; TEMP 36.3–36.8; O2SAT 94–100; BMI 63.1
--- NOTE | 2023-11-09 | GASB_PTH ---
PATIENT: ANEESH HALL LOC: [facility]3 U#:[id number] AGE/SX: 42/F ROOM: [facility] [place]02/[address]: Dr. Debbie Soares MD : 1980 BED: 1 DIS: 11/09/2023 SPEC #: [id number] RECD: 11/09/23 13:37 STATUS: RAMSEY COATES #: [id number] TERELL: 11/09/23 00:[address]: Nabil Morales DEPT: SURGICAL PATHOLOGY RECD BY: Mike Hernandes ENTERED: 11/10/23 07:28 SP TYPE: Gastric Bx OTHR DR: MD Dr. Radha Khan MD Dr. Jonathan Moss, PARAMM DO Dr. Debbie Woodson MD Dr. Robert Leininger, MD Amy D Conley, PIN WORKER-C Tissues: Gastric mucous membrane Procedures: Surgery Specimen Level IV Comments: @ Ordering doctor for SUIV edited from to @ luis enrique FLORES at 11/10/23 0801 @ Submitting doctor edited from to @ luis enrique FLORES at 11/10/23 0801 HEADER OPERATION: EGD with biopsies PRE-OP DIAGNOSIS: Anemia TISSUE SUBMITTED: Gastric antrum biopsy MICROSCOPIC DIAGNOSIS Gastric antrum, biopsy: Mild chronic gastritis. See comment. / 11/11/2023 COMMENT The results of immunohistochemistry for Helicobacter pylori will be reported separately ([id number]). MICROSCOPIC DESCRIPTION Slides are reviewed. GROSS DESCRIPTION Received in fixative is one container labeled with the patient's name and designated Gastric antrum biopsy. The specimen consists of multiple irregular fragments of light francois soft tissue that in aggregate measure 0.8 x 0.5 x 0.1 cm. The specimen is totally submitted in one cassette. [place]/ 11/10/2023 TC:3 [facility]:[id number]
[2023-11-09 04:51] LABS: Absolute Lymphocyte Count 1.11 X10^3/uL (0.83-4.51); Absolute Neutrophil Count 1.8 X10^3/uL (2.0-7.7); Basophil# 0.02 X10^3/uL; Basophil% 0.6 % (0-1); Eosinophil# 0.18 X10^3/uL; Eosinophils% 5.1 % (0-5); Hematocrit 22.8 % (37-47); Hemoglobin 7.1 g/dL (12.0-15.0); Lymphocyte # 1.11 X10^3/ul (0.83-4.51); Lymphocyte % 31.5 % (19-41); Mean Corp Hgb Conc 31.1 g/dL (32-36); Mean Corpuscular Hgb 30.1 pg (27.0-32.0); Mean Corpuscular Volume 96.6 fL (81-99); Mean Platelet Vol. 10.6 fl (6.2-12.0); Monocyte# 0.38 X10^3/uL; Monocyte% 10.8 % (0-10); NRBC Flagged by Analyzer 0 % (0-5); Neutrophil % 51.1 % (47-70); Platelet Count 164 K/mm3 (150-450); RBC Distribution Width CV 14.1 % (11.6-14.6); RBC Distribution Width SD 49.1 fl (35.1-43.9); Red Blood Count 2.36 M/mm3 (4.2-5.4); White Blood Count 3.5 K/mm3 (4.4-11.0)
[2023-11-09 05:00] LABS: Anion Gap 7 (5-15); BUN 38 mg/dL (7-18); BUN/Creat Ratio 7.7 RATIO (10-20); Calcium,Total 8.6 mg/dL (8.5-10.1); Chloride 107 mmol/L (98-107); Creatinine, Serum 4.96 mg/dL (0.55-1.02); EST Glomerular Filtration Rate 10 mL/min (>60); Est Glom Filt Rate - Afr Amer 12 mL/min (>60); Estimated Creatinine Clearance 23.08 ml/min; Glucose 174 mg/dL (74-106); Potassium 3.7 mmol/L (3.5-5.1); Sodium Level 138 mmol/L (136-145)
[2023-11-09] MEDS: Levothyroxine 25 MCG TABLET PO (06:19)
[2023-11-09 06:40] LABS: Bedside Glucose 157 mg/dL (74-106)
[2023-11-09] MEDS: Nystatin Powder 15gm Bottle 1 APPLIC TOPICAL (08:23)
--- NOTE | 2023-11-09 08:26 | WOUNDNOTE ---
wound photo: left medial lower leg
--- NOTE | 2023-11-09 08:27 | WOUNDNOTE ---
wound photo: left heel
--- NOTE | 2023-11-09 08:27 | WOUNDNOTE ---
wound photo: right foot
[2023-11-09] MEDS: Piperacil/Tazobactam 3.375 GM in 0.9% Normal Saline (50mL MB+) 50 ML IV (09:47)
--- NOTE | 2023-11-09 11:00 | PN_ITS ---
Subjective Subjective Patient seen and examined. She had no active complaints today. Her hemoglobin has dropped to 7.1. Gastroenterology therefore consulted and patient being kept n.p.o. for possible EGD today. Patient is upset because she wants to go home. Will transfuse with a unit of packed red blood cells today also. Objective Data Objective Data Vital Signs: Vital Signs Temp Pulse Resp BP Pulse Ox O2 Del Method O2 Flow Rate 97.4 F L 88 18 132/70 H 100 Room Air 2 11/09/23 08:10 11/09/23 08:10 11/09/23 08:10 11/09/23 08:10 11/09/23 08:10 11/09/23 08:13 11/06/23 07:46 Oxygen Flow Rate (L/min) 2 Oxygen Delivery Method Room Air Weight: 370 lb 2.498 oz Body Mass Index (BMI) 63.1 Intake & Output: Intake and Output for Last 24 Hours 11/07/23 11/08/23 11/09/23 23:59 23:59 23:59 Intake Total 454.75 / 454.75 1279.75 / 1279.75 277.25 / 277.25 Output Total 1794 / 1794 Balance -1339.25 / -1339.25 1279.75 / 1279.75 277.25 / 277.25 Lab / Micro Data 11/09/23 04:25 11/09/23 04:25 Labs: Laboratory Results - last 24 hr 11/08/23 12:23: POC Glucose 176 H 11/08/23 16:11: POC Glucose 244 H 11/08/23 21:15: POC Glucose 298 H 11/09/23 04:25: WBC 3.5 L, RBC 2.36 L, Hgb 7.1 L, Hct 22.8 L, MCV 96.6, MCH 30.1, MCHC 31.1 L, RDW Std Deviation 49.1 H, RDW Coeff of Luciano 14.1, Plt Count 164, MPV 10.6, Immature Gran % (Auto) 0.900, Neut % (Auto) 51.1, Lymph % (Auto) 31.5, [place] % (Auto) 10.8 H, Eos % (Auto) 5.1 H, Baso % (Auto) 0.6, Absolute Neuts (auto) 1.8 L, Absolute Lymphs (auto) 1.11, Nucleated RBC % 0, Sodium 138, Potassium 3.7, Chloride 107, Carbon Dioxide 24.0, Anion Gap 7, BUN 38 H, C reatinine 4.96 H, Estim Creat Clear Calc 23.08, Est GFR (MDRD) Af Amer 12 L, Est GFR (MDRD) Non-Af 10 L, BUN/Creatinine Ratio 7.7 L, Glucose 174 H, Calcium 8.6 11/09/23 06:18: POC Glucose 157 H 11/09/23 09:45: Crossmatch See Detail Micro: Microbiology 11/04/23 14:56 Wound - Leg, Left Gram Stain - Final 11/04/23 14:56 Wound - Leg, Left Wound Culture - Final No growth aerobically. 11/04/23 14:56 Wound - Leg, Left Anaerobic Culture - Final No growth in 5 days. 11/04/23 14:56 Wound - Leg, Left Gram Stain - Final 11/04/23 14:56 Wound - Leg, Left Wound Culture - Final Pseudomonas aeruginosa 11/04/23 14:56 Wound - Leg, Left Anaerobic Culture - Final No growth in 5 days. 11/04/23 14:56 Tissue - Leg, Left Gram Stain - Final 11/04/23 14:56 Tissue - Leg, Left Wound Culture - Final Serratia marcescens 11/04/23 14:56 Tissue - Leg, Left Anaerobic Culture - Final No anaerobic bacteria isolated. 11/02/23 08:00 Abs - Leg Gram Stain - Final 11/02/23 08:00 Abs - Leg Wound Culture - Final Gram positive yen Pseudomonas aeruginosa 11/02/23 20:51 Wound - Leg, Left Skin and Soft Tissue MRSA/MSSA (PCR - Final Physical Exam Const alert and oriented x3 Constitutional Narrative: super morbid obesity General Appearance: cooperative, well kempt and well developed Orientation / Consciousness: awake, oriented to person, oriented to place and oriented to time HEENT normocephalic, head/scalp atraumatic, moist oral mucous membranes and oropharynx normal Eyes PERRL, EOMs intact bilaterally and conjunctivae normal Neck no lymphadenopathy, supple, no JVD, thyroid normal and no carotid bruits General: trachea midline Lymph Lymphatic: no lymphadenopathy noted and no lymphedema noted Resp normal respiratory effort, normal air movement, no retractions, no use of accessory muscles and clear to auscultation bilaterally Resp Narrative: diminished breath sounds bibasally, no wheezes or crackles. Auscultation: Negative for rales, rhonchi or wheezes Cardio regular rate, regular rhythm, S1 normal heart sound, S2 normal heart sound, no murmurs and no gallops GI normal to inspection, nondistended, normoactive bowel sounds, soft to palpation, non-tender and non-distended GI Narrative: obese abdomen Extremity Extremity Narrative: LLE wrapped in bandage Skin Skin Narrative: as under extremities Neuro oriented x3, CN's II-XII intact bilaterally, moves all extremities, no focal motor deficits, no sensory deficits noted and deep tendon reflexes 2+ bilaterally Sensorium / Orientation: awake and alert Speech: speech normal Motor Exam: strength 5/5 throughout and general weakness Psych thought process normal, cooperative and affect normal Psych Narrative: flat affect Appearance: appropriate Mood & Affect: flat affect Assessment & Plan Assessment/Plan (1) Cellulitis of left lower limb: (2) ESRD (end stage renal disease): PLAN: Plan #Cellulitis of the LLE * failed outpatient therapy * ID and podiatry on board * s/p excisional debridement of LLE, with delayed closure of LLE wound. * on IV vancomycin and ceftriaxone; ceftriaxone broadened to zosyn. * per ID, to be on cephalexin 500mg bid and ciprofloxacin 500mg daily x 7 days. * wbc is 5.3 * blood cultures pending. Wound cultures grew Serratia marcescens and Pseudomonas aeruginosa * #Hypokalemia: potassium is 3.5. Will replace and trend. #Pancytopenia: * Hemoglobin has dropped further today to 7.1 * Hemoglobin was around 11 on admission. Iron profile done showed evidence of anemia of chronic disease as iron level of 27 which is low. TIBC is also low at 134 and iron saturation is on the lower side of normal at 20.1 though ferritin is elevated at 461. * Heparin discontinued and will check stool for occult blood. Transfuse hemoglobin is less than 7 negative stool for occult blood is positive, will consult GI. * Of note patient is on iron supplementation but has been refusing to take it. * transfuse with one unit of PRBC today * start on IV pantoprazole 40mg bid. * GI consulted. Patient kept NPO for EGD today * #Type 2 diabetes mellitus:A1C is 8.5. On Lantus 30 units nightly as well as glipizide. Insulin sliding scale. Accu-Cheks ACHS. #Hypertension: On metoprolol and lisinopril. BP meds held due to hypotension and patient now on midodrine for hypotension. #Hypothyroidism: on synthroid #Hyperlipidemia: On statin #ESRD: on HD Tuesdays, and Saturdays. Nephrology on board. #JOHNY: noncompliant with her CPAP. Counseled to comply with CPAP #Super morbid obesity: BMi is 62.7. Complicates acute care, expected recovery and prognosis DVT prophylaxis: heparin dc'd. NOw on SCDs Disposition: for likely dc within 1-2 days Charges/Coding Visit Charges Inpatient E&M: 98767 Subs Hosp L2
[2023-11-09 11:17] LABS: Bedside Glucose 159 mg/dL (74-106)
[2023-11-09] MEDS: 0.9% Normal Saline (500mL Bag) 500 ML 15 ML IV (11:31)
--- NOTE | 2023-11-09 11:40 | PCM.PRE.AN2 ---
ASA Classification* ASA Classification ASA Classification: 3 Assessment & Plan Anesthesia* Anesthesia Assessment Anesthesia Assessment: Discussed sedation and/or anesthesia options, risks, benefits, and alternatives with patient/parents/legal guardian/POA. Questions invited. The patient/parents/legal guardian/POA seems to understand and agrees to proceed with anesthesia plan. Reviewed the physical assessment, medical history, allergy history and patient home medications list prior to surgery/procedure/anesthetic and documented any changes. Performed airway and anesthesia risk assessments. Anesthesia Type Anesthesia Type: MAC Anesthesia Focused Assessment* Temperature: 97.4 F Pulse Rate: 88 Blood Pressure: 132/70 Respiratory Rate: 18 Pulse Ox: 100 Airway Assessment Mouth opens: >3 cm Mallampati Score: II Focused Labs Anesthesia Preop lab: CBC WBC 3.5 K/mm3 (4.4-11.0) L 11/09/23 04:25 RBC 2.36 M/mm3 (4.2-5.4) L 11/09/23 04:25 Hgb 7.1 g/dL (12.0-15.0) L 11/09/23 04:25 Hct 22.8 % (37-47) L 11/09/23 04:25 Plt Count 164 K/mm3 (150-450) 11/09/23 04:25 CHEMISTRY Potassium 3.7 mmol/L (3.5-5.1) 11/09/23 04:25 Sodium 138 mmol/L (136-145) 11/09/23 04:25 Magnesium 2.1 mg/dL (1.6-2.6) 11/02/23 14:55 Phosphorus 4.1 mg/dL (2.5-4.9) 11/02/23 14:55 BUN 38 mg/dL (7-18) H 11/09/23 04:25 Creatinine 4.96 mg/dL (0.55-1.02) H 11/09/23 04:25 Glucose 174 mg/dL (74-106) H 11/09/23 04:25 POC Glucose 159 mg/dL (74-106) H 11/09/23 10:59 TSH 5.80 uIU/mL (0.358-3.74) H 11/03/23 08:25 COAG Pre-Assessment Diagnosis/Proposed Procedure Planned Operative Procedure(s): EGD Anesthesia History 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 When Was Last Pacemaker Check QUESTION #4 FULL TEXT: You/Your Family Experience fever (hyperthermia) with Anesthesia Last Oral Intake Last Oral intake: Last Oral Intake NPO since 23:55 11/04/23 10:32 Meds taken in AM with sips of Yes 11/04/23 10:32 water? Meds patient instructed to 0900 metoprolol, pepcid and 11/04/23 10:32 take am of surgery protonix PONV PONV - fire and safety helper: PONV - fire and safety helper Female HX of Motion Sickness HX of N/V After Surgery Non-Smoker Duration of Surgery greater than 60 minutes Number of Risk Factors PONV Score Height & Weight Height & Weight: Anesthesia: Height & Weight Height 5 ft 4.17 in 11/09/23 10:31 Weight: 167.9 kg 11/09/23 10:31 Body Mass Index (BMI) 63.1 11/09/23 04:55 Respiratory Assessment Respiratory Assessment - fire and safety helper: Respiratory Tract Infection Hx - fire and safety helper Hx Respiratory Tract Infection No 11/03/23 20:37 STOP Sleep Apnea STOP Sleep Apnea - fire and safety helper: STOP Sleep Apnea - fire and safety helper Hx Hypertension Yes 11/05/23 17:28 Hx Sleep Apnea Yes 11/02/23 19:32 CPAP No 11/02/23 19:32 BIPAP No 11/02/23 19:32 Do you snore loudly (louder than talking or can be heard Do you often feel tired/ fatigued/ sleepy during daytime? Has anyone observed you stop breathing during sleep? STOP Results Positive 11/02/23 19:32 QUESTION #5 FULL TEXT : Do you snore loudly (louder than talking or can be heard through closed doors)? Tobacco Use History Tobacco Use History - fire and safety helper: Tobacco Use History - fire and safety helper Tobacco Use Smoking Status Current every day smoker 11/02/23 20:17 Hx Tobacco Use No 11/02/23 19:32 Years Smoking Packs Smoked per Day Smoking Cessation Date was within the last 15 years Hx Smoking Cessation Date Hx Smoking Cessation Counseling Hematologic Medial History Hematologic Hx - fire and safety helper: Hematologic Medical Hx - housekeeper home Hx of Blood Transfusion Yes 11/02/23 19:32 Hx of Transfusion in last 3 No 11/02/23 19:32 Months Date of Last Transfusion (if within last 3 months) Ever experience any problems No 11/02/23 19:32 with transfusion(s)? Specify any problems Hx of Preganancy in last 3 N/A 11/02/23 19:32 Months Nurse Filling Out Transfusion FSTEINER 11/02/23 19:32 & Questions: Date: 11/02/23 11/02/23 19:32 Time: 19:34 11/02/23 19:32 Patient unable to answer at this time (ie. confused, unrespo /Reproduction History /Reproductive History - fire and safety helper: /Reproductive Hx- fire and safety helper Hx Now No 11/03/23 20:37 Gestational Age (in weeks): EDC: Hx Hx Para Hx Section SAB No 11/03/23 20:37 Active Medications Active Medications: Current Medications Generic Name Dose Route Start Last Admin Trade Name Freq PRN Reason Stop Dose Admin Acetaminophen 650 mg 11/04/23 16:43 11/04/23 17:25 Acetaminophen 325 Mg Tablet PO 650 mg Q4H PRN PRN Administration Pain Score 1-5 Al Hydrox/Mg Hydrox/Simethicone 30 ml 11/02/23 19:49 Mag /Aluminum/Simeth Wch Udc 30 Ml Oral.Susp PO Q6H PRN PRN Gastric Burning Albuterol Sulfate 2.5 mg 11/02/23 19:49 Albuterol 2.5 Mg/3 Ml Vial.Neb. INHALATION Q2H PRN PRN Dyspnea, wheezing Atorvastatin Calcium 40 mg 11/02/23 22:00 11/08/23 21:19 Atorvastatin Calcium 40 Mg Tablet PO 40 mg QHS TATIANA Administration Bumetanide 2 mg 11/02/23 22:00 11/05/23 15:37 Bumetanide 2 Mg Tablet PO Not Given TID TATIANA Protocol Calamine/Phenol 1 applic 11/07/23 22:00 11/09/23 08:23 Menthol/Lanolin/Calamine/Znox 113 Gm Tube TOPICAL Not Given BID TATIANA Protocol Famotidine 20 mg 11/05/23 10:00 11/08/23 08:58 Famotidine 20 Mg Tablet PO 20 mg DAILY TATIANA Administration Ferrous Sulfate 325 mg 11/03/23 08:00 11/09/23 08:21 Ferrous Sulfate 325 Mg Tablet PO Not Given DAILYCM TATIANA Gabapentin 200 mg 11/07/23 22:45 11/09/23 08:21 Gabapentin 100 Mg Capsule PO Not Given TIDCM TATIANA Glucagon 1 mg 11/02/23 19:49 Glucagon 1 Mg/Ml Syringe IM X1 PRN HYPOGLYCEMIA Protocol Guaifenesin 20 ml 11/02/23 19:49 Guaifenesin 10 Ml Udc (200mg/10ml) PO Q4H PRN PRN COUGH Hydralazine HCl 10 mg 11/02/23 19:49 Hydralazine 20 Mg/Ml Vial IV Q4H PRN PRN SBP > 160 Protocol Sodium Chloride 250 mls @ 15 mls/hr 11/02/23 19:36 11/09/23 09:49 IV 0 mls/hr .[id number] PRN Infusion Additional IVPB Infusion Sodium Chloride 250 mls @ 15 mls/hr 11/02/23 19:36 IV .[id number] PRN Saline Flush Vancomycin IV-PHARMACY TO DOSE 500 mls @ 250 mls/hr 11/02/23 19:49 1 each/ Sodium Chloride IV PRN PRN Rx to Dose Protocol Dextrose 250 mls @ 0 mls/hr 11/02/23 19:49 Dextrose 10%-Water IV .Q0M PRN HYPOGLYCEMIA Protocol As Directed Sodium Chloride 500 mls @ 0 mls/hr 11/04/23 12:15 IV .Q0M TATIANA KVO Piperacillin Sod/Tazobactam 50 mls @ 12.5 mls/hr 11/06/23 16:35 11/09/23 09:47 Sod 3.375 gm/ Sodium Chloride IV 12.5 mls/hr Q12 TATIANA Administration Pantoprazole Sodium 40 mg/ 110 mls @ 330 mls/hr 11/09/23 22:00 Sodium Chloride IV Q12 TATIANA Sodium Chloride 500 mls @ 0 mls/hr 11/09/23 11:30 11/09/23 11:31 IV 15 mls/hr .Q0M [facility] Administration KVO Insulin Glargine 30 unit 11/02/23 22:00 11/08/23 21:19 Insulin Glargine-Yfgn 100 Unit/Ml Pen SC 30 unit QHS [facility] Administration Insulin Human Lispro 2 - 8 unit 11/02/23 22:00 11/09/23 11:02 Insulin Lispro 100 Unit/Ml Insuln.Pen SC Not Given ACHS [facility] Levothyroxine Sodium 25 mcg 11/03/23 06:00 11/09/23 06:19 Levothyroxine 25 Mcg Tablet PO 25 mcg DAILY@0600 [facility] Administration Lisinopril 20 mg 11/03/23 10:00 11/04/23 15:43 Lisinopril 20 Mg Tablet PO Not Given DAILY [facility] Protocol Melatonin 3 mg 11/02/23 19:49 Melatonin 3 Mg Tablet PO QHS PRN PRN INSOMNIA Metoprolol Succinate 50 mg 11/03/23 10:00 11/04/23 07:43 Metoprolol(Xl)Succ 50 Mg Tablet PO 50 mg DAILY [facility] Administration Protocol Midodrine 10 mg 11/06/23 12:00 11/07/23 11:22 Midodrine Hcl 5 Mg Tablet PO Not Given TIDCM [facility] Montelukast Sodium 10 mg 11/02/23 22:00 11/08/23 21:20 Montelukast 10 Mg Tablet PO 10 mg QHS [facility] Administration Morphine Sulfate 4 mg 11/04/23 16:43 Morphine 4 Mg/Ml Syringe IV Q4H PRN PRN Pain Score 6-10 or Pre PT/OT Nicotine 14 mg 11/02/23 19:49 11/09/23 08:22 Nicotine 14 Mg Patch TD 14 mg DAILY [facility] Administration Nifedipine 30 mg 11/03/23 10:00 11/05/23 11:17 Nifedipine 30 Mg Tablet PO Not Given DAILY [facility] Nystatin 1 applic 11/07/23 22:00 11/09/23 08:23 Nystatin Powder 15gm Bottle TOPICAL 1 applic BID [facility] Administration Protocol Ondansetron HCl 4 mg 11/02/23 19:49 11/07/23 03:12 Ondansetron 4 Mg/2 Ml Vial IV 4 mg Q8H PRN PRN Administration NAUSEA/VOMITING Oxycodone HCl 5 mg 11/02/23 19:49 11/03/23 22:12 Oxycodone 5 Mg Tablet PO 5 mg Q4H PRN PRN Administration Pain Score 4-10 Oxycodone HCl 5 mg 11/04/23 16:43 11/04/23 17:25 Oxycodone 5 Mg Tablet PO 5 mg Q4H PRN PRN Administration Pain Score 6-10 Pantoprazole Sodium 40 mg 11/03/23 10:00 11/08/23 08:59 Pantoprazole Sodium 40 Mg Tablet PO 40 mg DAILY TATIANA Administration Prochlorperazine Edisylate 5 mg 11/02/23 19:49 11/07/23 10:15 Prochlorperazine 10 Mg/2 Ml Vial IV 5 mg Q4H PRN PRN Administration Breakthrough nausea/vomiting Quetiapine Fumarate 25 mg 11/02/23 22:00 11/08/23 21:20 Quetiapine 25 Mg Tablet PO 25 mg QHS TATIANA Administration Protocol Senna/Docusate Sodium 2 tablet 11/02/23 19:49 11/08/23 17:38 Senna/Docusate Sodium 1 Tablet PO 2 tablet BID PRN PRN Administration Constipation Sodium Chloride 10 - 40 ml 11/02/23 19:36 11/07/23 10:15 0.9% Saline Lock 10 Ml Syringe IV 20 ml UD PRN Administration SALINE FLUSH Vancomycin Protocol 1 lab 11/10/23 04:00 Vancomycin Trough/Random Due MC 11/10/23 08:00 DAILY [facility] PFSH Medical History Hypothyroidism Allergic rhinitis Chronic acquired lymphedema Morbid obesity Chronic anemia ESRD (end stage renal disease) on dialysis History of renal cell cancer Chronic painful diabetic neuropathy IDDM (insulin dependent diabetes mellitus) Tobacco use Mood disorder Anxiety and depression Sleep apnea COPD (chronic obstructive pulmonary disease) Asthma Home Medications ?Medication ?Instructions ?Recorded ?Last Taken ?Type atorvastatin 40 mg tablet 40 mg PO QHS HLD 11/02/23 Unknown History bumetanide 2 mg tablet 2 mg PO TID HTN, edema 11/02/23 Unknown History famotidine 20 mg tablet 20 mg PO BID GERD 11/02/23 Unknown History ferrous sulfate 325 mg (65 mg 325 mg PO DAILY Fe deficiency 11/02/23 Unknown History iron) tablet (FeroSul) anemia gabapentin 100 mg capsule 200 mg PO TID DM neuropathy 11/02/23 Unknown History glipizide 10 mg tablet 20 mg PO BID DM 11/02/23 Unknown History insulin aspart U-100 100 unit/mL subcut ISS DM 11/02/23 Unknown History subcutaneous solution insulin glargine 100 unit/mL (3 30 unit subcut QHS DM 11/02/23 Unknown History mL) subcutaneous pen (Lantus Solostar U-100 Insulin) levothyroxine 25 mcg tablet 25 mcg PO DAILY Hypothyroidism 11/02/23 Unknown History lisinopril 20 mg tablet 20 mg PO DAILY HTN 11/02/23 Unknown History metoprolol succinate 50 mg 50 mg PO DAILY HTN 11/02/23 11/04/23 History tablet,extended release 24 hr montelukast 10 mg tablet 10 mg PO QHS Allergic rhinitis 11/02/23 Unknown History nifedipine 30 mg tablet,extended 30 mg PO HTN 11/02/23 Unknown History release pantoprazole 40 mg tablet,delayed 40 mg PO DAILY GERD 11/02/23 11/04/23 History release quetiapine 25 mg tablet 25 mg PO QHS 11/02/23 Unknown History Anxiety/Depression/Mood disorder Allergy/AdvReac Type Severity Reaction Status Date / Time bee venom protein (honey Allergy Severe Anaphylaxis Verified 11/02/23 13:29 bee) (bee stings) clindamycin Allergy Severe Hives Verified 11/02/23 13:29 metformin AdvReac Intermediate Diarrhea Verified 11/02/23 13:29 dulaglutide (From [facility]) AdvReac Mild Constipatio Verified 11/02/23 13:29 n Family History Mother Diabetes Father Cancer Hx Lung, Rectal cancer. COPD (chronic obstructive pulmonary disease) Diabetes Surgical History S/P foot surgery, left H/O partial nephrectomy Social History household members: family Smoking Status: Current every day smoker tobacco type: cigarettes Smoking packs per day: 0.5 Smoking cigarettes per day: 10.0 alcohol intake: never substance use type: does not use Review of Systems (Anesthesia) ROS Narrative System reviewed and no additional complaints, except as documented.
--- NOTE | 2023-11-09 12:15 | IMM_PTH ---
PATIENT: ANEESH HALL LOC: MS3 U#:[id number] AGE/SX: 42/F ROOM: [facility] [place] RE11/02/[address]: Dr. Debbie Soares MD : 1980 BED: 1 DIS: 11/09/2023 SPEC #: [id number] RECD: 11/10/23 08:01 STATUS: RAMSEY REQ #: [id number] TERELL: 11/09/23 12:[address]: Nabil Morales DEPT: IMMUNOHISTOCHEMISTRY RECD BY: Angelo Franco ENTERED: 11/10/23 08:02 SP TYPE: IMMUNO OTHR DR: MD Dr. Radha Khan MD Dr. Jonathan Moss, PARAMM DO Dr. Debbie Woodson MD Dr. Robert Leininger, MD Amy D Conley, [employer] Tissues: Gastric mucous membrane Procedures: H Pylori (initial) Comments: @ Ordering doctor for H.PYLORI edited from to @ by MARK at 11/10/23 08 @ Submitting doctor edited from to @ luis enrique FLORES at 11/10/23801 PHYSICIAN & [place] [id number] SPECIMEN INFORMATION: Tissue Source: Gastric antrum biopsy Clinical Info: Roxana Specimen Number: [id number] CPT code: 63660 METHODOLOGY: Deparaffinized sections of prefer/formalin-fixed tissue or PAP/DQ stained slides are incubated with monoclonal/polyclonal antibodies/oligonucleotide probes. Localization is made via biotin free immunoperoxidase method. Appropriate controls are performed and reacted as expected. Results on target cell population are indicated in the following table: RESULTS: ANTIBODY / CLONE RESULT H Pylori (polyclonal) negative These tests were developed and their performance characteristics determined by [facility]. They may not have been cleared or approved by the U.S. Food and Drug Administration. The FDA has determined that such clearance or approval is not necessary. The above immunohistochemical/dualISH markers are ordered and reviewed by the Pathologist. INTERPRETATION: Gastric antrum, biopsy: Negative for Helicobacter pylori organisms. MALATHI/ 11/11/2023
--- NOTE | 2023-11-09 12:45 | EX.PCM.CON.G ---
HPI Consult Data Date of Consult: 11/09/23 HPI Narrative Reason for Consultation: GI bleed HPI Narrative: ANEESH HALL, is a 42 y/o F w/ PMHx: Morbid obesity, Chronic anemia/Fe deficiency anemia, ESRD on HD \Chronic BL LE lymphedema, IDDM with chronic neuropathy, presented to the [facility] ED on 11/02/23 with history of chronic wound to the left lower extremity medial calf which podiatry has been following. Her leg infection had been getting worse and unfortunately onset of fever up to 100.6 at home with increased redness around the wound and from the ankle to the distal knee circumferentially. CTA of the abdomen, aorta, bilateral lower extremities with noted atherosclerotic changes without evidence for any hemodynamically significant stenosis with patent three-vessel runoff to the level of the ankle, cellulitis of the calf with most severe involvement of the posterior medial aspect, very small phlegmon lesion containing tiny air bubbles possibly due to gangrenous changes with no well-defined abscess or evidence for any acute osteomyelitis. She is being seen by podiatry, infectious disease and nephrology. I was asked to see her due to worsening hemoglobin and concern for GI bleed. Her hemoglobin is 7.1 and is down from 11.6. She is on iron therapy chronically due to a history of mild anemia. She was started on a PPI drip and I was consulted for endoscopic management of presumed acute GI bleed. [facility] Medical History Hypothyroidism Allergic rhinitis Chronic acquired lymphedema Morbid obesity Chronic anemia ESRD (end stage renal disease) on dialysis History of renal cell cancer Chronic painful diabetic neuropathy IDDM (insulin dependent diabetes mellitus) Tobacco use Mood disorder Anxiety and depression Sleep apnea COPD (chronic obstructive pulmonary disease) Asthma Home Medications ?Medication ?Instructions ?Recorded ?Last Taken ?Type atorvastatin 40 mg tablet 40 mg PO QHS HLD 11/02/23 Unknown History bumetanide 2 mg tablet 2 mg PO TID HTN, edema 11/02/23 Unknown History famotidine 20 mg tablet 20 mg PO BID GERD 11/02/23 Unknown History ferrous sulfate 325 mg (65 mg 325 mg PO DAILY Fe deficiency 11/02/23 Unknown History iron) tablet (FeroSul) anemia gabapentin 100 mg capsule 200 mg PO TID DM neuropathy 11/02/23 Unknown History glipizide 10 mg tablet 20 mg PO BID DM 11/02/23 Unknown History insulin aspart U-100 100 unit/mL subcut ISS DM 11/02/23 Unknown History subcutaneous solution insulin glargine 100 unit/mL (3 30 unit subcut QHS DM 11/02/23 Unknown History mL) subcutaneous pen (Lantus Solostar U-100 Insulin) levothyroxine 25 mcg tablet 25 mcg PO DAILY Hypothyroidism 11/02/23 Unknown History lisinopril 20 mg tablet 20 mg PO DAILY HTN 11/02/23 Unknown History metoprolol succinate 50 mg 50 mg PO DAILY HTN 11/02/23 11/04/23 History tablet,extended release 24 hr montelukast 10 mg tablet 10 mg PO QHS Allergic rhinitis 11/02/23 Unknown History nifedipine 30 mg tablet,extended 30 mg PO HTN 11/02/23 Unknown History release pantoprazole 40 mg tablet,delayed 40 mg PO DAILY GERD 11/02/23 11/04/23 History release quetiapine 25 mg tablet 25 mg PO QHS 11/02/23 Unknown History Anxiety/Depression/Mood disorder Allergy/AdvReac Type Severity Reaction Status Date / Time bee venom protein (honey Allergy Severe Anaphylaxis Verified 11/02/23 13:29 bee) (bee stings) clindamycin Allergy Severe Hives Verified 11/02/23 13:29 metformin AdvReac Intermediate Diarrhea Verified 11/02/23 13:29 dulaglutide (From [facility]) AdvReac Mild Constipatio Verified 11/02/23 13:29 n Family History Mother Diabetes Father Cancer Hx Lung, Rectal cancer. COPD (chronic obstructive pulmonary disease) Diabetes Surgical History S/P foot surgery, left H/O partial nephrectomy Social History household members: family Smoking Status: Current every day smoker tobacco type: cigarettes Smoking packs per day: 0.5 Smoking cigarettes per day: 10.0 alcohol intake: never substance use type: does not use ROS ROS Narrative Admission Review of Systems: CONSTITUTIONAL: No weight loss, + fever, chills, weakness or fatigue. HEENT: Eyes: No visual loss, blurred vision, double vision or yellow sclerae. Ears, Nose, Throat: No hearing loss, sneezing, congestion, runny nose or sore throat. SKIN: No rash or itching, lesions except + left lower extremity significant erythema, wound, purulent drainage. CARDIOVASCULAR: + Chronic bilateral extremity edema, lymphedema. No chest pain, chest pressure or chest discomfort, palpitations, orthopnea, syncopal events. RESPIRATORY: No shortness of breath, cough or sputum, wheezing, hemoptysis. GASTROINTESTINAL: + Anorexia, nausea, vomiting. No diarrhea, abdominal pain, melena, BRBPR. GENITOURINARY: No dysuria, frequency, urgency or retention. NEUROLOGICAL: No headache, dizziness, syncope, paralysis, ataxia, numbness or tingling in the extremities, focal weakness, change in bowel or bladder control, seizure. MUSCULOSKELETAL: + muscle, back pain, joint pain or stiffness. HEMATOLOGIC: + Chronic anemia. No active bleeding or easy bruising. LYMPHATICS: No enlarged nodes. No history of splenectomy. PSYCHIATRIC: + History of anxiety and depression/mood disorder. ENDOCRINOLOGIC: + sweating, cold or heat intolerance. No polyuria or polydipsia. ALLERGIES: + History of asthma, allergic rhinitis, hives, anaphylaxis. Physical Exam Const alert and oriented x3 Constitutional Narrative: super morbid obesity General Appearance: cooperative, well kempt and well developed Orientation / Consciousness: awake, oriented to person, oriented to place and oriented to time HEENT normocephalic, head/scalp atraumatic, moist oral mucous membranes and oropharynx normal Eyes PERRL, EOMs intact bilaterally and conjunctivae normal Neck no lymphadenopathy, supple, no JVD, thyroid normal and no carotid bruits General: trachea midline Lymph Lymphatic: no lymphadenopathy noted and no lymphedema noted Resp normal respiratory effort, normal air movement, no retractions, no use of accessory muscles and clear to auscultation bilaterally Resp Narrative: diminished breath sounds bibasally, no wheezes or crackles. Auscultation: Negative for rales, rhonchi or wheezes Cardio regular rate, regular rhythm, S1 normal heart sound, S2 normal heart sound, no murmurs and no gallops GI normal to inspection, nondistended, normoactive bowel sounds, soft to palpation, non-tender and non-distended GI Narrative: obese abdomen Extremity Extremity Narrative: LLE wrapped in bandage Skin Skin Narrative: as under extremities Neuro oriented x3, CN's II-XII intact bilaterally, moves all extremities, no focal motor deficits, no sensory deficits noted and deep tendon reflexes 2+ bilaterally Sensorium / Orientation: awake and alert Speech: speech normal Motor Exam: strength 5/5 throughout and general weakness Psych thought process normal, cooperative and affect normal Psych Narrative: flat affect Appearance: appropriate Mood & Affect: flat affect Lab / Micro Data 11/09/23 04:25 11/09/23 04:25 Labs: Laboratory Results - last 24 hr 11/08/23 12:23: POC Glucose 176 H 11/08/23 16:11: POC Glucose 244 H 11/08/23 21:15: POC Glucose 298 H 11/09/23 04:25: WBC 3.5 L, RBC 2.36 L, Hgb 7.1 L, Hct 22.8 L, MCV 96.6, MCH 30.1, MCHC 31.1 L, RDW Std Deviation 49.1 H, RDW Coeff of Luciano 14.1, Plt Count 164, MPV 10.6, Immature Gran % (Auto) 0.900, Neut % (Auto) 51.1, Lymph % (Auto) 31.5, Jay % (Auto) 10.8 H, Eos % (Auto) 5.1 H, Baso % (Auto) 0.6, Absolute Neuts (auto) 1.8 L, Absolute Lymphs (auto) 1.11, Nucleated RBC % 0, Sodium 138, Potassium 3.7, Chloride 107, Carbon Dioxide 24.0, Anion Gap 7, BUN 38 H, Creatinine 4.96 H, Estim Creat Clear Calc 23.08, Est GFR (MDRD) Af Amer 12 L, Est GFR (MDRD) Non-Af 10 L, BUN/Creatinine Ratio 7.7 L, Glucose 174 H, Calcium 8.6 11/09/23 06:18: POC Glucose 157 H 11/09/23 09:45: Blood Type O NEGATIVE, Antibody Screen NEGATIVE, Crossmatch See Detail 11/09/23 10:59: POC Glucose 159 H Micro: Microbiology 11/04/23 14:56 Wound - Leg, Left Gram Stain - Final 11/04/23 14:56 Wound - Leg, Left Wound Culture - Final No growth aerobically. 11/04/23 14:56 Wound - Leg, Left Anaerobic Culture - Final No growth in 5 days. 11/04/23 14:56 Wound - Leg, Left Gram Stain - Final 11/04/23 14:56 Wound - Leg, Left Wound Culture - Final Pseudomonas aeruginosa 11/04/23 14:56 Wound - Leg, Left Anaerobic Culture - Final No growth in 5 days. 11/04/23 14:56 Tissue - Leg, Left Gram Stain - Final 11/04/23 14:56 Tissue - Leg, Left Wound Culture - Final Serratia marcescens 11/04/23 14:56 Tissue - Leg, Left Anaerobic Culture - Final No anaerobic bacteria isolated. Assessment & Plan Assessment/Plan (1) Cellulitis of left lower limb: (2) ESRD (end stage renal disease): (3) Anemia: PLAN: Plan 42-year-old with history of morbid obesity, poorly controlled diabetes mellitus presents with bilateral lower extremity edema and identified as having cellulitis of lower extremity. She failed outpatient therapy and is on antibiotic therapy as per ID. She developed decrease in hemoglobin along with decrease in white blood cell count and platelet count. Iron studies consistent with possible anemia chronic disease in the setting of acute GI bleed. Also the differential diagnosis will be portal hypertension versus medication induced bone marrow injury causing pancytopenia. She will undergo an upper endoscopy to evaluate upper GI tract. She was explained alternatives, risk, benefits include not withstanding bleeding, infection, sepsis, perforation, need for emergent urgent . She will have an ASA of 3. Charges/Coding Visit Charges Inpatient E&M: 00797 Init Hosp L3
--- NOTE | 2023-11-09 13:21 | PCM.POST.ANE ---
Anesthesia: Postop Eval I Current Vital Signs Temperature: 98.1 F Pulse Rate: 78 Blood Pressure: 114/102 Respiratory Rate: 16 Pulse Ox: 100 Oxygen Delivery Method: Room Air Assessment Airway patent: Yes Spontaneous unlabored respirations: Yes Mental status: Asleep nausea: No Vomiting: No Anesthesia Complication: No Fluid Hydration Crystalloid volume administer (ml): 100 Total IV fluid infused: 100 Progress Note Anesthesia document: Postop Eval 1 completed: Yes
--- NOTE | 2023-11-09 15:07 | DCINST_ITS ---
Discharge Instructions Diet Discharge Diet: Low fat / Low cholesterol Activity Discharge Activity: Return to Normal Activity Weight Bearing Status: Weight bearing as tolerated Dressing / Incision Call your doctor if you observe: Fever of 101 or Higher, Shortness of breath, Dizziness, Swelling in the ankles and Chest pain Follow Up Care Test Results: Test results from this visit will be discussed in further detail at your follow- up appointment, if applicable. Discharge Plan Admission Admit Date/Time: 11/02/23 18:18 Primary Reason for Your Visit: cellulitis of the lower extremity, acute on chronic anemia Attending Provider: Debbie Soares Primary Care Provider: Areli Kincaid Consulting Providers: Dalila Patel; Mumtaz Delgadillo; Blaine Joseph; Radha Mack; Anish Maguire Instructions Patient Instructions: Cellulitis, Anemia Discharge Orders/Prescriptions Prescriptions: New ferrous sulfate 325 mg (65 mg iron) tablet 325 mg PO BID Qty: 60 2RF cephalexin 500 mg tablet 500 mg PO BID Qty: 14 0RF ciprofloxacin HCl 500 mg tablet 500 mg PO BID Qty: 14 0RF Continued atorvastatin 40 mg tablet 40 mg PO QHS bumetanide 2 mg tablet 2 mg PO TID famotidine 20 mg tablet 20 mg PO BID gabapentin 100 mg capsule 200 mg PO TID glipizide 10 mg tablet 20 mg PO BID insulin aspart U-100 100 unit/mL solution subcut Rx Instructions: Sliding scale 201-250 2 units, 251-300 4 units, 301-350 6 units, 351-401 8 units insulin glargine [Lantus Solostar U-100 Insulin] 100 unit/mL (3 mL) insulin pen 30 unit subcut QHS levothyroxine 25 mcg tablet 25 mcg PO DAILY montelukast 10 mg tablet 10 mg PO QHS metoprolol succinate 50 mg tablet extended release 24 hr 50 mg PO DAILY lisinopril 20 mg tablet 20 mg PO DAILY nifedipine 30 mg tablet extended release 30 mg PO pantoprazole 40 mg tablet,delayed release (DR/EC) 40 mg PO DAILY quetiapine 25 mg tablet 25 mg PO QHS Discontinued ferrous sulfate [FeroSul] 325 mg (65 mg iron) tablet 325 mg PO DAILY Referrals / Follow Up: Wound Health [Outside] - 11/10/23 8:00 am Jesse Perez DPM [Med Staff - Active Staff] - (follow up in wound care center Thursday11/10/23, appt scheduled, call wound care center for time) FriendNabil DO [Med Staff - Active Staff] - Within 2 Weeks Areli Kincaid, TAX ACCOUNTANT-C [Primary Care Provider] - Disposition Disposition (needs filled in before D/C Order can be placed): Home, Self Care
--- NOTE | 2023-11-09 15:15 | DS.PCM_ITS ---
Providers Date of Admission: 11/02/23 Date of Discharge: 11/09/23 Primary Care Physician: Areli Kincaid, WATER RESTORATION TECHNICIAN-C Consultations 11/02/23 19:49 Consult: Nephrology Routine Consulting Provider: Radha Mack Reason for Consult: ESRD on HD T//Thu, usually has HD in [place] EMERGENT Consult: No MD Notified: Yes Date Notified: 11/03/23 Time Notified: 05:57 Method of Notification: Answering Service Consult: Onc/Wound/rn lactation Routine Comment: Reason for Consult:: LLE abscess/wound Consult: Podiatry Routine Consulting Provider: Anish Maguire Reason for Consult: LLE cellulitis, wound EMERGENT Consult: No MD Notified: Yes Date Notified: 11/02/23 Time Notified: 18:20 Method of Notification: ED Physician Initiated 11/03/23 09:05 Consult: Infectious Disease Routine Consulting Provider: Blaine Joseph Reason for Consult: Left lower leg cellulitis EMERGENT Consult: No MD Notified: Yes Date Notified: 11/03/23 Time Notified: 09:13 Method of Notification: Text 11/09/23 07:02 Consult: Gastroenterology Routine Consulting Provider: [facility] Reason for Consult: acute on chronic anemia EMERGENT Consult: No MD Notified: Yes Date Notified: 11/09/23 Time Notified: 07:02 Method of Notification: Text Reason For Visit: LLE CELLULITIS, RECENT ABSCESS Diagnosis Discharge Diagnosis (1) Cellulitis of left lower limb: Status: Acute Code(s): L03.116 - Cellulitis of left lower limb (2) ESRD (end stage renal disease): Status: Acute Code(s): N18.6 - End stage renal disease (3) Anemia: Status: Acute Code(s): D64.9 - Anemia, unspecified Plan #Cellulitis of the LLE * failed outpatient therapy * ID and podiatry on board * s/p excisional debridement of LLE, with delayed closure of LLE wound. * on IV vancomycin and ceftriaxone; ceftriaxone broadened to zosyn. * per ID, to be on cephalexin 500mg bid and ciprofloxacin 500mg daily x 7 days. * wbc is 5.3 * blood cultures pending. Wound cultures grew Serratia marcescens and Pseudomonas aeruginosa * #Hypokalemia: potassium is 3.5. Will replace and trend. #Pancytopenia: * Hemoglobin has dropped further today to 7.1 * Hemoglobin was around 11 on admission. Iron profile done showed evidence of anemia of chronic disease as iron level of 27 which is low. TIBC is also low at 134 and iron saturation is on the lower side of normal at 20.1 though ferritin is elevated at 461. * Heparin discontinued and will check stool for occult blood. Transfuse hemoglobin is less than 7 negative stool for occult blood is positive, will consult GI. * Of note patient is on iron supplementation but has been refusing to take it. * transfuse with one unit of PRBC today * start on IV pantoprazole 40mg bid. * GI consulted. Patient kept NPO for EGD today * #Type 2 diabetes mellitus:A1C is 8.5. On Lantus 30 units nightly as well as glipizide. Insulin sliding scale. Accu-Cheks ACHS. #Hypertension: On metoprolol and lisinopril. BP meds held due to hypotension and patient now on midodrine for hypotension. #Hypothyroidism: on synthroid #Hyperlipidemia: On statin #ESRD: on HD Tuesdays, and Saturdays. Nephrology on board. #JOHNY: noncompliant with her CPAP. Counseled to comply with CPAP #Super morbid obesity: BMi is 62.7. Complicates acute care, expected recovery and prognosis DVT prophylaxis: heparin dc'd. NOw on SCDs Disposition: for likely dc within 1-2 days Medications at Discharge Home Medications atorvastatin 40 mg tablet 40 mg PO QHS HLD 11/02/23 bumetanide 2 mg tablet 2 mg PO TID HTN, edema 11/02/23 famotidine 20 mg tablet 20 mg PO BID GERD 11/02/23 gabapentin 100 mg capsule 200 mg PO TID DM neuropathy 11/02/23 glipizide 10 mg tablet 20 mg PO BID DM 11/02/23 insulin aspart U-100 100 unit/mL subcutaneous solution subcut ISS DM 11/02/23 insulin glargine 100 unit/mL (3 mL) subcutaneous pen (Lantus Solostar U-100 Insulin) 30 unit subcut QHS DM 11/02/23 levothyroxine 25 mcg tablet 25 mcg PO DAILY Hypothyroidism 11/02/23 lisinopril 20 mg tablet 20 mg PO DAILY HTN 11/02/23 metoprolol succinate 50 mg tablet,extended release 24 hr 50 mg PO DAILY HTN 11/02/23 montelukast 10 mg tablet 10 mg PO QHS Allergic rhinitis 11/02/23 nifedipine 30 mg tablet,extended release 30 mg PO HTN 11/02/23 pantoprazole 40 mg tablet,delayed release 40 mg PO DAILY GERD 11/02/23 quetiapine 25 mg tablet 25 mg PO QHS Anxiety/Depression/Mood disorder 11/02/23 cephalexin 500 mg tablet 500 mg PO BID #14 tabs 11/09/23 ciprofloxacin HCl 500 mg tablet 500 mg PO BID #14 tabs 11/09/23 ferrous sulfate 325 mg (65 mg iron) tablet 325 mg PO BID #60 tabs 11/09/23 Hospital Course Operations - (excisional debridement) Procedures None Summary of Care Provided Minutes Spent on Discharge: 48 Hospital Course: Patient is a 42-year-old female with past medical history as outlined which includes ESRD on insulin dependent diabetes mellitus and history of renal cancer with partial renal resection was admitted through the ED on 11/02/2023 with a complaint of poorly healing left calf wound. The wound was chronic and she had been following up with podiatry on outpatient basis for about a month. However had worsening she had had I&D done and started on oral antibiotic namely Keflex and doxycycline. She completed a course of this but subsequently started having fever and increased redness around the wound and associated nausea and vomiting. She therefore came into the ED. He was admitted and managed for cellulitis of the left lower extremity with failed outpatient treatment. Imaging done showed tiny air bubbles possibly due to gangrenous changes with no well-defined abscess or evidence of any acute osteomyelitis. She was started on IV vancomycin and Zosyn and podiatry was consulted. Nephrology was also consulted for dialysis. ID was also consulted. She had excisional debridement of the LLE on 11/04/2023. Duplex of the lower extremity was negative for any evidence of blood clot. Wound cultures grew Serratia marcescens and Pseudomonas aeruginosa. Per ID, patient was to be discharged on p.o. Keflex 500 mg twice daily and ciprofloxacin 500 mg twice daily for 7 days. Hospital course was complicated by acute on chronic anemia with hemoglobin going as low as 7.1. Iron panel showed an anemia of chronic disease picture. Of note patient was supposed to be on oral iron supplementation daily but had not been compliant with it. She was transfused with a unit of packed red blood cells. Gastroenterology was consulted and she had EGD which showed no evidence of bleeding. She remained stable and was discharged home on p.o. Keflex and p.o. ciprofloxacin for 7-day course per ID recommendation. She is follow-up with her primary care doctor and with ID as well as nephrology and podiatry within 1 to 2 weeks. Patient seen and examined prior to discharge. SHe was upset because she wanted to be discharged home. She said she had to pick her son up from senior care tomorrow and so wanted to be discharged home or leave AMA. Review of systems was otherwise negative. Labs and vitals reviewed. Home meds reviewed and reconciled. Physical Exam Const alert, oriented x3 and no apparent distress Constitutional Narrative: super morbid obesity General Appearance: cooperative, comfortable, well kempt and well developed Orientation / Consciousness: awake, oriented to person, oriented to place, oriented to time and lethargic HEENT normocephalic, head/scalp atraumatic, hearing grossly normal bilaterally, moist oral mucous membranes and oropharynx normal Mouth: oral and palatal mucosa normal Eyes PERRL, EOMs intact bilaterally and conjunctivae normal Neck no lymphadenopathy, supple, no JVD, thyroid normal and no carotid bruits General: trachea midline Lymph Lymphatic: no lymphadenopathy noted and no lymphedema noted Resp normal respiratory effort, normal air movement, no retractions, no use of accessory muscles and clear to auscultation bilaterally Resp Narrative: diminished breath sounds bibasally, no wheezes or crackles. Auscultation: Negative for rales, rhonchi or wheezes Cardio regular rate, regular rhythm, S1 normal heart sound, S2 normal heart sound, no murmurs and no gallops GI normal to inspection, nondistended, normoactive bowel sounds, soft to palpation, non-tender and non-distended GI Narrative: obese abdomen Extremity Extremity Narrative: LLE wrapped in bandage Skin Skin Narrative: as under extremities Neuro oriented x3, CN's II-XII intact bilaterally, moves all extremities, no focal motor deficits, no sensory deficits noted and deep tendon reflexes 2+ bilaterally Sensorium / Orientation: awake and alert Speech: speech normal Motor Exam: strength 5/5 throughout and general weakness Psych thought process normal, cooperative and affect normal Psych Narrative: flat affect Appearance: appropriate Weight / BMI Weight Weight: 370 lb 2.498 oz Body Mass Index (BMI) 63.1 ABG / Lab / Microbiology Data 11/09/23 04:25 11/09/23 04:25 Laboratory: Laboratory Results - last 24 hr 11/08/23 16:11: POC Glucose 244 H 11/08/23 21:15: POC Glucose 298 H 11/09/23 04:25: WBC 3.5 L, RBC 2.36 L, Hgb 7.1 L, Hct 22.8 L, MCV 96.6, MCH 30.1, MCHC 31.1 L, RDW Std Deviation 49.1 H, RDW Coeff of Luciano 14.1, Plt Count 164, MPV 10.6, Immature Gran % (Auto) 0.900, Neut % (Auto) 51.1, Lymph % (Auto) 31.5, Cloud % (Auto) 10.8 H, Eos % (Auto) 5.1 H, Baso % (Auto) 0.6, Absolute Neuts (auto) 1.8 L, Absolute Lymphs (auto) 1.11, Nucleated RBC % 0, Sodium 138, Potassium 3.7, Chloride 107, Carbon Dioxide 24.0, Anion Gap 7, BUN 38 H, C reatinine 4.96 H, Estim Creat Clear Calc 23.08, Est GFR (MDRD) Af Amer 12 L, Est GFR (MDRD) Non-Af 10 L, BUN/Creatinine Ratio 7.7 L, Glucose 174 H, Calcium 8.6 11/09/23 06:18: POC Glucose 157 H 11/09/23 09:45: Blood Type O NEGATIVE, Antibody Screen NEGATIVE, Crossmatch See Detail 11/09/23 10:59: POC Glucose 159 H Microbiology: Microbiology 11/06/23 17:18 Blood Culture (Wb) - Anticubital Right Blood Culture - Preliminary No growth in 48 hours. 11/04/23 14:56 Wound - Leg, Left Gram Stain - Final 11/04/23 14:56 Wound - Leg, Left Wound Culture - Final Pseudomonas aeruginosa 11/04/23 14:56 Wound - Leg, Left Anaerobic Culture - Final No growth in 5 days. 11/04/23 14:56 Wound - Leg, Left Gram Stain - Final 11/04/23 14:56 Wound - Leg, Left Wound Culture - Final No growth aerobically. 11/04/23 14:56 Wound - Leg, Left Anaerobic Culture - Final No growth in 5 days. 11/04/23 14:56 Tissue - Leg, Left Gram Stain - Final 11/04/23 14:56 Tissue - Leg, Left Wound Culture - Final Serratia marcescens 11/04/23 14:56 Tissue - Leg, Left Anaerobic Culture - Final No anaerobic bacteria isolated. 11/02/23 08:00 Abs - Leg Gram Stain - Final 11/02/23 08:00 Abs - Leg Wound Culture - Final Gram positive yen Pseudomonas aeruginosa 11/02/23 20:51 Wound - Leg, Left Skin and Soft Tissue MRSA/MSSA (PCR - Final D/C Instructions Discharge Diet: Low fat / Low cholesterol Discharge Activity: Return to Normal Activity Weight Bearing Status: Weight bearing as tolerated Call your doctor if you observe: Fever of 101 or Higher, Shortness of breath, Dizziness, Swelling in the ankles and Chest pain Meaningful Use Info Meaningful Use Meaningful Use Diagnoses (Choose all that apply): None applicable Ischemic Stroke Statin Dosing Therapy Reference: STATIN DOSE THERAPY REFERENCE: * Patients > 75 years receive moderate or high dose statin therapy. * Patients 75 years or YOUNGER should receive HIGH intensity statin dose unless contraindicated. You will be required to document reason for non-treatment if statin daily dose does not meet guidelines. HIGH DOSE STATIN THERAPY DAILY Atorvastatin > than or = to 40 mg Rosuvastatin > than or = to 20 mg Amlodipine + Atorvastatin > than or = to 2.5/40 mg Ezetimibe + Simvastatin 10/80 mg Simvastatin 80mg Discharge Plan Admission Admit Date/Time: 11/02/23 18:18 Primary Reason for Your Visit: cellulitis of the lower extremity, acute on chronic anemia Attending Provider: Debbie Soares Primary Care Provider: Areli Kincaid Consulting Providers: Dalila Patel; Mumtaz Delgadillo; Blaine Joseph; Radha Mack; Anish Maguire Instructions Patient Instructions: Cellulitis, Anemia Discharge Orders/Prescriptions Prescriptions: New ferrous sulfate 325 mg (65 mg iron) tablet 325 mg PO BID Qty: 60 2RF cephalexin 500 mg tablet 500 mg PO BID Qty: 14 0RF ciprofloxacin HCl 500 mg tablet 500 mg PO BID Qty: 14 0RF Continued atorvastatin 40 mg tablet 40 mg PO QHS bumetanide 2 mg tablet 2 mg PO TID famotidine 20 mg tablet 20 mg PO BID gabapentin 100 mg capsule 200 mg PO TID glipizide 10 mg tablet 20 mg PO BID insulin aspart U-100 100 unit/mL solution subcut Rx Instructions: Sliding scale 201-250 2 units, 251-300 4 units, 301-350 6 units, 351-401 8 units insulin glargine [Lantus Solostar U-100 Insulin] 100 unit/mL (3 mL) insulin pen 30 unit subcut QHS levothyroxine 25 mcg tablet 25 mcg PO DAILY montelukast 10 mg tablet 10 mg PO QHS metoprolol succinate 50 mg tablet extended release 24 hr 50 mg PO DAILY lisinopril 20 mg tablet 20 mg PO DAILY nifedipine 30 mg tablet extended release 30 mg PO pantoprazole 40 mg tablet,delayed release (DR/EC) 40 mg PO DAILY quetiapine 25 mg tablet 25 mg PO QHS Discontinued ferrous sulfate [FeroSul] 325 mg (65 mg iron) tablet 325 mg PO DAILY Referrals / Follow Up: Wound Health [Outside] - 11/10/23 8:00 am Jesse Perez DPM [Med Staff - Active Staff] - (follow up in wound care center Thursday11/10/23, appt scheduled, call wound care center for time) Nabil Morales DO [Med Staff - Active Staff] - Within 2 Weeks Areli Kincaid, WATER RESTORATION TECHNICIAN-C [Primary Care Provider] - Disposition Disposition (needs filled in before D/C Order can be placed): Home, Self Care Charges/Coding Visit Charges Inpatient E&M: 71057 Disch Hosp >30min
--- NOTE | 2023-11-09 15:36 | PHA.DC.MC.R ---
Pharmacy [facility] has performed discharge medication reconciliation and counseling for this patient. The patient's discharge medication list was reviewed for discrepancies and discrepancies were resolved. The patient was counseled on the following discharge medications and changes in medications for homegoing were reviewed. The Reason for Use, instructions for use, and potential side effects were reviewed for all new medications. The patient's questions regarding all of their medications were answered. 1. Cephalexin 500 mg PO BID x 7 days 2. Ciprofloxacin 500 mg PO BID x 7 days 3. Ferrous sulfate 325 mg PO BID The patient was able to verbally demonstrate an understanding of their discharge medications. The patient was counselled on new medications by pharmacy billing adjudicator Ashwin. Medications at Discharge Home Medications atorvastatin 40 mg tablet 40 mg PO QHS HLD 11/02/23 bumetanide 2 mg tablet 2 mg PO TID HTN, edema 11/02/23 famotidine 20 mg tablet 20 mg PO BID GERD 11/02/23 gabapentin 100 mg capsule 200 mg PO TID DM neuropathy 11/02/23 glipizide 10 mg tablet 20 mg PO BID DM 11/02/23 insulin aspart U-100 100 unit/mL subcutaneous solution subcut ISS DM 11/02/23 insulin glargine 100 unit/mL (3 mL) subcutaneous pen (Lantus Solostar U-100 Insulin) 30 unit subcut QHS DM 11/02/23 levothyroxine 25 mcg tablet 25 mcg PO DAILY Hypothyroidism 11/02/23 lisinopril 20 mg tablet 20 mg PO DAILY HTN 11/02/23 metoprolol succinate 50 mg tablet,extended release 24 hr 50 mg PO DAILY HTN 11/02/23 montelukast 10 mg tablet 10 mg PO QHS Allergic rhinitis 11/02/23 nifedipine 30 mg tablet,extended release 30 mg PO HTN 11/02/23 pantoprazole 40 mg tablet,delayed release 40 mg PO DAILY GERD 11/02/23 quetiapine 25 mg tablet 25 mg PO QHS Anxiety/Depression/Mood disorder 11/02/23 cephalexin 500 mg tablet 500 mg PO BID #14 tabs 11/09/23 ciprofloxacin HCl 500 mg tablet 500 mg PO BID #14 tabs 11/09/23 ferrous sulfate 325 mg (65 mg iron) tablet 325 mg PO BID #60 tabs 11/09/23
--- NOTE | 2023-11-09 15:38 | CASEMGMT ---
BHARGAVI CM into pt room, pt sitting up in bed in no distress. Pt is aware that PT and OT were added to her HH orders. She denies any further homegoing needs. Pt sig other will continue doing pt aide care. DC summary faxed to Rufina at [facility] at this time.
[2023-11-09] MEDS: Gabapentin 100 MG Capsule 200 MG PO (16:39)
[2023-11-09 16:51] LABS: Bedside Glucose 189 mg/dL (74-106)
--- NOTE | 2023-11-09 16:56 | OP.EGD_ITS ---
Patient Name: Tess Rosenberg Procedure Date: 11/09/2023 12:56 PM Date of : 1980 Age: 42 Procedure: Upper GI endoscopy Indications: Iron deficiency anemia Providers: Nabil Morales DO Medicines: Monitored Anesthesia Care Patient Profile: This is a 42 year old female. Refer to note in patient chart for documentation of history and physical. Patient has symptoms. Complications: No immediate complications. Procedure: Pre-Anesthesia Assessment: - Prior to the procedure, a History and Physical was performed, and patient medications and allergies were reviewed. The patient is competent. The risks and benefits of the procedure and the sedation options and risks were discussed with the patient. All questions were answered and informed consent was obtained. Patient identification and proposed procedure were verified by the physician in the pre-procedure area. Mental Status Examination: alert and oriented. Airway Examination: normal oropharyngeal airway and neck mobility. Respiratory Examination: clear to auscultation. CV Examination: normal. Prophylactic Antibiotics: The patient does not require prophylactic antibiotics. Prior Anticoagulants: The patient has taken no anticoagulant or antiplatelet agents. ASA Grade Assessment: II - A patient with mild systemic disease. After reviewing the risks and benefits, the patient was deemed in satisfactory condition to undergo the procedure. The anesthesia plan was to use monitored anesthesia care (MAC). Immediately prior to administration of medications, the patient was re-assessed for adequacy to receive sedatives. The heart rate, respiratory rate, oxygen saturations, blood pressure, adequacy of pulmonary ventilation, and response to care were monitored throughout the procedure. The physical status of the patient was re-assessed after the procedure. After obtaining informed consent, the endoscope was passed under direct vision. Throughout the procedure, the patient's blood pressure, pulse, and oxygen saturations were monitored continuously. The Endoscope was introduced through the mouth, and advanced to the second part of duodenum. The upper GI endoscopy was accomplished without difficulty. The patient tolerated the procedure well. Scope In: 1:02:40 PM Scope Out: 1:06:29 PM Total Procedure Duration Time 0 hours 3 minutes 49 seconds Findings: The examined esophagus was normal. Patchy mildly erythematous mucosa without bleeding was found in the gastric antrum. Biopsies were taken with a cold forceps for histology. Verification of patient identification for the specimen was done. Estimated blood loss was minimal. The duodenal bulb was normal. Impression: - Normal esophagus. - Erythematous mucosa in the antrum. Biopsied. - Normal duodenal bulb. Recommendation: - Return patient to [facility] for [facility] care. - Continue present medications. Procedure Code(s): --- Professional --- 39480, Esophagogastroduodenoscopy, flexible, transoral; with biopsy, single or multiple CPT copyright 2021 [employer]. All rights reserved. The codes documented in this report are preliminary and upon e commerce developer review may be revised to meet current compliance requirements. Nabil Morales DO 11/09/2023 4:55:33 PM This report has been signed electronically. Number of Addenda: 0 Note Initiated On: 11/09/2023 12:56 PM
--- NOTE | 2023-11-09 16:56 | OP.CCLET_ITS ---
11/09/2023 Areli Kincaid, Carla-c Re : Upper GI endoscopy procedure for Tess Rosenberg Dear Sanjiv This procedure was performed on Thursday, November 09, 2023. My impressions and recommendations are as follows: Impressions : - Normal esophagus. - Erythematous mucosa in the antrum. Biopsied. - Normal duodenal bulb. Recommendations : - Return patient to [facility] for ongoing care. - Continue present medications. My findings are described in the full procedure note, which is enclosed. If I can be of further assistance, please feel free to contact me at . Sincerely, Nabil Morales, 11/09/2023 4:55:33 PM This report has been signed electronically.
--- NOTE | 2023-11-09 19:08 | PN.RENAL_ITS ---
Subjective Subjective no new events possible dc today Objective Data Objective Data Vital Signs: Vital Signs Temp Pulse Resp BP Pulse Ox O2 Del Method O2 Flow Rate 97.8 F 93 16 140/79 H 97 Room Air 2 11/09/23 17:04 11/09/23 17:04 11/09/23 17:04 11/09/23 17:04 11/09/23 17:04 11/09/23 17:04 11/09/23 11:40 Oxygen Flow Rate (L/min) 2 Oxygen Delivery Method Room Air Weight: 167.9 kg Body Mass Index (BMI) 63.1 Intake & Output: Intake and Output for Last 24 Hours 11/07/23 11/08/23 11/09/23 23:59 23:59 23:59 Intake Total 454.75 / 454.75 1279.75 / 1279.75 383.50 / 383.50 Output Total 1794 / 1794 Balance -1339.25 / -1339.25 1279.75 / 1279.75 383.50 / 383.50 Lab / Micro Data 11/09/23 04:25 11/09/23 04:25 Labs: Laboratory Results - last 24 hr 11/08/23 21:15: POC Glucose 298 H 11/09/23 04:25: WBC 3.5 L, RBC 2.36 L, Hgb 7.1 L, Hct 22.8 L, MCV 96.6, MCH 30.1, MCHC 31.1 L, RDW Std Deviation 49.1 H, RDW Coeff of Luciano 14.1, Plt Count 164, MPV 10.6, Immature Gran % (Auto) 0.900, Neut % (Auto) 51.1, Lymph % (Auto) 31.5, [place] % (Auto) 10.8 H, Eos % (Auto) 5.1 H, Baso % (Auto) 0.6, Absolute Neuts (auto) 1.8 L, Absolute Lymphs (auto) 1.11, Nucleated RBC % 0, Sodium 138, Potassium 3.7, Chloride 107, Carbon Dioxide 24.0, Anion Gap 7, BUN 38 H, C reatinine 4.96 H, Estim Creat Clear Calc 23.08, Est GFR (MDRD) Af Amer 12 L, Est GFR (MDRD) Non-Af 10 L, BUN/Creatinine Ratio 7.7 L, Glucose 174 H, Calcium 8.6 11/09/23 06:18: POC Glucose 157 H 11/09/23 09:45: Blood Type O NEGATIVE, Antibody Screen NEGATIVE, Crossmatch See Detail 11/09/23 10:59: POC Glucose 159 H 11/09/23 16:29: POC Glucose 189 H Micro: Microbiology 11/06/23 17:18 Blood Culture (Wb) - Anticubital Right Blood Culture - Preliminary No growth in 48 hours. 11/04/23 14:56 Wound - Leg, Left Gram Stain - Final 11/04/23 14:56 Wound - Leg, Left Wound Culture - Final Pseudomonas aeruginosa 11/04/23 14:56 Wound - Leg, Left Anaerobic Culture - Final No growth in 5 days. 11/04/23 14:56 Wound - Leg, Left Gram Stain - Final 11/04/23 14:56 Wound - Leg, Left Wound Culture - Final No growth aerobically. 11/04/23 14:56 Wound - Leg, Left Anaerobic Culture - Final No growth in 5 days. 11/04/23 14:56 Tissue - Leg, Left Gram Stain - Final 11/04/23 14:56 Tissue - Leg, Left Wound Culture - Final Serratia marcescens 11/04/23 14:56 Tissue - Leg, Left Anaerobic Culture - Final No anaerobic bacteria isolated. 11/02/23 08:00 Abs - Leg Gram Stain - Final 11/02/23 08:00 Abs - Leg Wound Culture - Final Gram positive yen Pseudomonas aeruginosa 11/02/23 20:51 Wound - Leg, Left Skin and Soft Tissue MRSA/MSSA (PCR - Final Physical Exam Narrative no obvious distress no pallor no icterus no JVD s1s2 no murmurs lungs clear abdomen soft no organomegaly no edema no cyanosis Assessment & Plan Assessment/Plan (1) ESRD (end stage renal disease): PLAN: On hemodialysis., Thursday, , Thursday schedule. Anemia. Low iron saturation. Will have to call her home dialysis unit but she tells me that she gets IV iron with dialysis. She was told that she has low iron multiple times. No obvious source of blood loss. I will add IV iron with next dialysis session. Unlikely to absorb oral iron due to hemodialysis status.
== END 2023-11-09 17:25 | disposition home health service (06) | DRG 951 ==
LOC: ED 18:01 → MS3 18:28
PROVIDERS: Anesthesiology; Internal Medicine; Internal Medicine Gastroenterology; Internal Medicine Infectious Disease; Podiatrist; Podiatrist Foot & Ankle Surgery; Admitting Provider Family Medicine; Emergency Provider Emergency Medicine; PCP Nurse Practitioner Family; Visit Provider Student in an Organized Health Care Education/Training Program
PROC: 0KBT0ZZ Excision of Left Lower Leg Muscle, Open Approach (ICD-10-PCS; principal; 2023-11-04 12:50)
PROC: 0DJ08ZZ Inspection of Upper Intestinal Tract, Via Natural or Artificial Opening Endoscopic (ICD-10-PCS; CPT 43235; principal; 2023-11-09 12:10)
DX: E11.52 Type 2 diabetes mellitus with diabetic peripheral angiopathy with gangrene (principal); D61.818 Other pancytopenia; I12.0 Hypertensive chronic kidney disease with stage 5 chronic kidney disease or end stage renal disease; L02.416 Cutaneous abscess of left lower limb; D63.8 Anemia in other chronic diseases classified elsewhere; L03.116 Cellulitis of left lower limb; E11.22 Type 2 diabetes mellitus with diabetic chronic kidney disease; N18.6 End stage renal disease; J44.9 Chronic obstructive pulmonary disease, unspecified; E66.01 Morbid (severe) obesity due to excess calories; E03.9 Hypothyroidism, unspecified; F32.A Depression, unspecified; L97.223 Non-pressure chronic ulcer of left calf with necrosis of muscle; D50.9 Iron deficiency anemia, unspecified; E11.628 Type 2 diabetes mellitus with other skin complications; E11.40 Type 2 diabetes mellitus with diabetic neuropathy, unspecified; Z68.44 Body mass index [BMI] 60.0-69.9, adult; K21.9 Gastro-esophageal reflux disease without esophagitis; J30.9 Allergic rhinitis, unspecified; E78.5 Hyperlipidemia, unspecified; G47.33 Obstructive sleep apnea (adult) (pediatric); I87.2 Venous insufficiency (chronic) (peripheral); E87.6 Hypokalemia; Z79.4 Long term (current) use of insulin; Z99.2 Dependence on renal dialysis; I89.0 Lymphedema, not elsewhere classified; S80.12XS Contusion of left lower leg, sequela; W19.XXXS Unspecified fall, sequela; I95.9 Hypotension, unspecified; F41.9 Anxiety disorder, unspecified; F17.210 Nicotine dependence, cigarettes, uncomplicated; B96.89 Other specified bacterial agents as the cause of diseases classified elsewhere; B96.5 Pseudomonas (aeruginosa) (mallei) (pseudomallei) as the cause of diseases classified elsewhere; Z79.84 Long term (current) use of oral hypoglycemic drugs; Z79.85 Long-term (current) use of injectable non-insulin antidiabetic drugs; Z79.890 Hormone replacement therapy; Z79.899 Other long term (current) drug therapy; Z85.528 Personal history of other malignant neoplasm of kidney; Z90.5 Acquired absence of kidney
CPT/HCPCS: 36415; 73706; 73718; 74018; 80048; 80053; 80202; 81001; 82728; 82962; 83036; 83540; 83550; 83735; 84100; 84443; 84703; 85025; 85730; 86850; 86900; 86901; 86920; 86922; 87040; 87070; 87075; 87077; 87184; 87186; 87205; 87640; 88305; 88342; 90937; 93005; 93923; 93970; 94640; 94668; 97162; 97166; 97530; 97535; 99284; J2997; J7030; J7040; J7050; P9016; Q9967; A4216; G0257; J0696; J2405

== ENCOUNTER 2023-12-08 09:45 | Outpatient (RCR) | payer MEDICAID, SELFPAY ==
[2023-11-12 00:14] VITALS: BP 165/92; PULSE 102; RESP 24; TEMP 35.7; BMI 61.4
[2023-11-17 09:42] VITALS: BP 99/75; PULSE 108; RESP 18; TEMP 35.4; BMI 61.4
--- NOTE | 2023-11-17 11:23 | PN.PCM_ITS ---
History of Present Illness Date of Service: 11/17/23 Chief Complaint: Left History of Wound: Ms. Rosenberg is a 42-year-old diabetic female presenting to wound care center today for bilateral lower extremity ulcerations. Patient was referred to the wound care center from a doctor in [place]. She does see podiatry in [place]. Patient has evidence of left proximal and heel ulcerations as well as right foot ulceration secondary to peripheral neuropathy and diabetes. Patient is an uncontrolled diabetic with a blood sugar ranging from 300 mg/dL daily. Her A1c is 13%. Treatment has been with local wound care and oral antibiotics at this time. She does admit to trauma to the left proximal ulceration. Denies constitutional symptoms. No other pedal complaints at this time. Progress of Wound: Patient previously seen at the wound healing center by Dr. Maguire. She was hospitalized and went to the OR by Dr. Perez 11/04/23 for excisional debridement left leg wound down to including level of muscle of all necrotic tissue and delayed primary closure left leg wound. This is her first post hospital follow up. She is on dialysis 3x/week. She has a complicated medical history. Left leg incision is intact. [place] are intact. There is bruising/hematoma on the distal posterior aspect of the incision. It seems to be resolving but there still is small amount of fluctuation. She has a new wound on right dorsal/medial great toe that she obtained when leaving the hospital, she states she fell. Objective Data Objective Data Vital Signs: Vital Signs Temp Pulse Resp BP O2 Del Method 95.8 F L 108 H 18 99/75 Room Air 11/17/23 09:42 11/17/23 09:42 11/17/23 09:42 11/17/23 09:42 11/17/23 09:42 Oxygen Delivery Method Room Air Weight: 358 lb 4.078 oz Body Mass Index (BMI) 61.4 Charges/Coding Visit Charges Office Visits / Consults: [id number] OV L4 Est 30min Physical Exam Const alert and oriented x3 General Appearance: cooperative HEENT normocephalic Head and Scalp: atraumatic Eyes PERRL Resp normal respiratory effort, no use of accessory muscles and clear to auscultation bilaterally Effort and Inspection: able to speak in complete sentences Cardio regular rate and regular rhythm Extremity normal capillary refill Skin Wound Narrative: Left leg incision is intact. [place] are intact. There is bruising/hematoma on the distal posterior aspect of the incision. It seems to be resolving but there still is small amount of fluctuation. Half of the stables that were loose were removed. She has a new wound on right dorsal/medial great toe that she obtained when leaving the hospital, she states she fell. Neuro CN's II-XII intact bilaterally Psych affect normal Debridement Note Debridement Note No debridement was completed: No debridement was completed today Post-Debridement Measurements and Additional Note: Post-Debridement Measurements/Treatment Z[facility] - Nurse 1 - General Ulcer Assessment Start: 11/17/23 09:42 Freq: Status: Active Protocol: AIME Activity Type Activity Date Activity User E-sign Co-sign Detail Recorded Client Recorded Date Recorded By Document 11/17/23 09:42 MARILY swain 11/17/23 09:48 MARILY 11/17/23 09:42 WC - Today's Visit Information Type of service Follow-up Visit (Physician/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 ) Arrival Mode Ambulatory Patient Identification Verified (Name & Yes ) Height and Weight Body Mass Index (BMI) 61.4 BMI Classification Obese Vital Signs Temperature (97.8 F-99.1 F) 95.8 F L Temperature Source Temporal Pulse Rate (60-100) 108 H Pulse Location Monitor Respiratory Rate (12-18) 18 Respiratory rate source Observation Oxygen Delivery Method Room Air Blood Pressure (90/60-120/80) 99/75 Blood Pressure Mean (mm Hg) 83 Source Monitor Position Sitting Blood Pressure Location Left Arm History Since Last Visit- (Skip if this is Patient's initial visit) Have you changed medications since your No last visit? Any new allergies or adverse reactions No Had a fall/change in ADL's that may No increase risk of falls Signs or symptoms of abuse and/or No neglect since last visit Have you been in the hospital since your Yes last visit? Has dressing in place as prescribed No Has compression in place as prescribed No Has offloadiing in place as prescribed N/A Experienced any changes in pain level or No management Left Footwear Regular Shoe Right Footwear Regular Shoe Pain Scale: 0-10 Numeric Is Patient Pain Free? Yes ZACH - Nurse 1 - General Ulcer Measurement Start: 11/17/23 09:42 Freq: Status: Active Protocol: Activity Type Activity Date Activity User E-sign Co-sign Detail Recorded Client Recorded Date Recorded By Document 11/17/23 09:42 KW 11/17/23 09:48 KW Edit Result 11/17/23 09:42 KW (1) kl 11/17/23 09:50 KW (1) #5 LLE Med POST OP - Wound Comment(s) MURTAZA INTACT, INCISION IS 15CM LONG => MURTAZA IN TACT, INCISION IS 15CM LONG, 33 MURTAZA COUNTED 11/17/23 09:42 Wound Center Nurse 1 #6 RT GREAT TOE -Current Size (cm) - Length 1 -Current Size (cm) - Width 0.9 -Current Size (cm) - Depth 0.1 -Total Square Cm 0.9 -Date of Last Picture (Recall this 11/17/23 field) -Exudate Amt Small -Exudate Type Serosanguineous -Wound Margin Distinct, Outline Attached -Granulation Amt Large (67-100%) -Granulation Quality [place] -Necrosis Amt Small (1-33%) -Necrotic Tissue Type Adherent Slough -Texture (Carrie-wound Skin Appearance) Assessed -Moisture (Carrie-wound Skin Appearance) Assessed -Color (Carrie-wound Skin Appearance) Assessed -Temperature (Carrie-wound Skin No Abnormality Appearance) (Pt Warm) -Tenderness on Palpation (Carrie-wound No Skin Appearance) -Ulcer Cleansing Rinsed/ Irrigated with Saline -Foul Odor after Cleansing No -Anesthetic Used 5% Lidocaine Gel #5 LLE Med POST OP -Current Size (cm) - Length 0.1 -Current Size (cm) - Width 0.1 -Current Size (cm) - Depth 0.1 -Total Square Cm 0.01 -Date of Last Picture (Recall this 11/17/23 field) -Texture (Carrie-wound Skin Appearance) Assessed -Moisture (Carrie-wound Skin Appearance) Assessed -Color (Carrie-wound Skin Appearance) Assessed, Ecchymosis -Wound Comment(s) MURTAZA INTACT, INCISION IS 15CM LONG, 33 MURTAZA COUNTED Left Calf (cm) 62.5 Left Ankle (cm) 37.5 WC - Nurse 2 - General Ulcer CM Notes Start: 11/17/23 09:42 Freq: Status: Active Protocol: Activity Type Activity Date Activity User E-sign Co-sign Detail Recorded Client Recorded Date Recorded By Document 11/17/23 10:18 JF 0000 11/17/23 10:20 JF 11/17/23 10:18 Wound Center Nurse 2 #3 R Med Foot -Correct Patient No -Correct Side, Site, Position No -Correct Procedure No -Procedure Performed No -Post Debridement (cm) - Length 0 -Post Debridement (cm) - Width 0 -Post Debridement (cm) - Depth 0 -Total Square (Post) (cm) 0 -Area of Debridement (cm) - Length 0 -Area of Debridement (cm) - Width 0 -Total Square (Area) (cm) 0 -Wound/Ulcer Outcome Healed- Epithelialized #6 RT GREAT TOE -Correct Patient No -Correct Side, Site, Position No -Correct Procedure No -Procedure Performed No -Wound/Ulcer Outcome Not Healed #5 LLE Med POST OP -Correct Patient No -Correct Side, Site, Position No -Correct Procedure No -Procedure Performed No -Post Debridement (cm) - Length 0 -Post Debridement (cm) - Width 0 -Post Debridement (cm) - Depth 0 -Total Square (Post) (cm) 0 -Area of Debridement (cm) - Length 0 -Area of Debridement (cm) - Width 0 -Total Square (Area) (cm) 0 -Wound/Ulcer Outcome Healed- Surgical Closure Pain Scale: 0-10 Numeric Is Patient Pain Free? Yes Assessment/Plan Assessment/Plan (1) Non-pressure chronic ulcer of other part of left lower leg with fat layer exposed: CODE(S): L97.822 - Non-pressure chronic ulcer of other part of left lower leg with fat layer exposed (2) Non-pressure chronic ulcer of other part of right foot with fat layer exposed: CODE(S): L97.512 - Non-pressure chronic ulcer of other part of right foot with fat layer exposed (3) Diabetes mellitus with diabetic polyneuropathy: CODE(S): E11.42 - Type 2 diabetes mellitus with diabetic polyneuropathy (4) Open wound of right great toe without damage to nail: CODE(S): S91.101A - Unspecified open wound of right great toe without damage to nail, initial encounter PLAN: Plan Patient evaluated at the wound healing center. This is a courtesy visit for Dr. Perez. Half the murtaza removed from her left medial leg incision. Mostly the ones that were looses. She has bruising and loose skin on the distal posterior portion of her incision. Wound care will be to place Betadine on incision and then cover incision with gauze. For the bruised area fold an ABD pad in half and place over the bruised area and compress with single Tubigrip. For her new wound on her right medial great toe place Betadine to that daily also. She may gently wash her leg and foot with soap and water and pat dry at the time of the dressing changes. Encouraged to keep leg elevated to help prevent edema. Arterial study from 11/05/23 reviewed. Right HENNA 1.4. Left HENNA 1.22. She has completed the Cipro and the Cephalexin that she was discharged home on from [place]. Encouraged increased protein intake to help with wound healing. Follow up one week with Dr. Perez. Greater that 30 minutes spent with patient, assessing, educating, reviewing records and documenting.
--- NOTE | 2023-11-18 08:42 | WC ---
PHOTO LLE MED 11/17/23
--- NOTE | 2023-11-18 08:42 | WC ---
PHOTO 11/17/23 RIGHT GREAT TOE
[2023-12-01 09:45] VITALS: BP 159/61; PULSE 89; RESP 16; TEMP 35.4; BMI 61.4
--- NOTE | 2023-12-01 10:44 | PN.PCM_ITS ---
History of Present Illness Date of Service: 12/01/23 Chief Complaint: Left History of Wound: Ms. Rosenberg is a 42-year-old diabetic female presenting to wound care center today for bilateral lower extremity ulcerations. Patient was referred to the wound care center from a doctor in [place]. She does see podiatry in [place]. Patient has evidence of left proximal and heel ulcerations as well as right foot ulceration secondary to peripheral neuropathy and diabetes. Patient is an uncontrolled diabetic with a blood sugar ranging from 300 mg/dL daily. Her A1c is 13%. Treatment has been with local wound care and oral antibiotics at this time. She does admit to trauma to the left proximal ulceration. Denies constitutional symptoms. No other pedal complaints at this time. Progress of Wound: Patient presents for follow-up status post left leg incision and drainage of multiple abscesses with delayed primary closure. Patient was discharged on p.o. doxycycline and ciprofloxacin. This was to treat positive wound cultures consisting of Serratia marcescens and Pseudomonas aeruginosa. Patient was seen at 1 week postop by Xochitl Sanchez. This was a courtesy visit. Dressing was changed. Patient presents today for additional follow-up. She denies any constitutional symptoms has been compliant with dressing care. Objective Data Objective Data Vital Signs: Vital Signs Temp Pulse Resp BP O2 Del Method 95.8 F L 89 16 159/61 H Room Air 12/01/23 09:45 12/01/23 09:45 12/01/23 09:45 12/01/23 09:45 11/17/23 09:42 Oxygen Delivery Method Room Air Weight: 162.502 kg Body Mass Index (BMI) 61.4 Physical Exam Narrative Neurovascular status unchanged from previous visit. There is noted to be full-thickness dehiscence at the proximal and distal aspects of the incisional sites. Upon debridement there is noted to be a large approximately 20 cc seroma expressed from the level of muscle. Pre and postdebridement measurements documented nursing notes. No acute and chronic signs of infection. Right dorsal PIPJ ulceration to the hallux full-thickness down to level of subcutaneous tissue clean granular base. Pre and postdebridement measurements documented nursing notes. No signs of infection. Musculoskeletal: No sign DVT. No wound forming deformity noted. Debridement Note Debridement Note Post-Debridement Measurements and Additional Note: Post-Debridement Measurements/Treatment WC - Nurse 1 - General Ulcer Assessment Start: 11/17/23 09:42 Freq: Status: Active Protocol: AIME Activity Type Activity Date Activity User E-sign Co-sign Detail Recorded Client Recorded Date Recorded By Document 11/17/23 09:42 KW wiliam 11/17/23 09:48 KW Document 12/01/23 09:45 [email or web address] [id number] 12/01/23 09:50 JF 11/17/23 12/01/23 09:42 09:45 - Today's Visit Information Type of service Follow-up Visit Follow-up Visit (Physician/[employer] (Physician/[employer] ) ) Arrival Mode Ambulatory Wheelchair Patient Identification Verified (Name & Yes Yes ) Patient Requires Transmission-Based No Precautions Height and Weight Body Mass Index (BMI) 61.4 61.4 BMI Classification Obese Obese Vital Signs Temperature (97.8 F-99.1 F) 95.8 F L 95.8 F L Temperature Source Temporal Temporal Pulse Rate (60-100) 108 H 89 Pulse Location Monitor Monitor Respiratory Rate (12-18) 18 16 Respiratory rate source Observation Observation Oxygen Delivery Method Room Air Blood Pressure (90/60-120/80) 99/75 159/61 H Blood Pressure Mean (mm Hg) 83 93 Source Monitor Monitor Position Sitting Semi-Fowlers Blood Pressure Location Left Arm Right Forearm History Since Last Visit- (Skip if this is Patient's initial visit) Have you changed medications since your No No last visit? Any new allergies or adverse reactions No No Had a fall/change in ADL's that may No No increase risk of falls Signs or symptoms of abuse and/or No No neglect since last visit Have you been in the hospital since your Yes No last visit? Has dressing in place as prescribed No Yes Has compression in place as prescribed No Yes Has offloadiing in place as prescribed N/A N/A Experienced any changes in pain level or No No management Left Footwear Regular Shoe Regular Shoe Right Footwear Regular Shoe Regular Shoe Pain Scale: 0-10 Numeric Is Patient Pain Free? Yes Yes - Nurse 1 - General Ulcer Measurement Start: 11/17/23 09:42 Freq: Status: Active Protocol: Activity Type Activity Date Activity User E-sign Co-sign Detail Recorded Client Recorded Date Recorded By Document 11/17/23 09:42 MARILY swain 11/17/23 09:48 KW Edit Result 11/17/23 09:42 KW (1) kl 11/17/23 09:50 KW Document 12/01/23 09:45 JF [id number] 12/01/23 09:50 JF (1) #5 LLE Med POST OP - Wound Comment(s) KIMBERLY INTACT, INCISION IS 15CM LONG => KIMBERLY INTACT, INCISION IS 15CM LONG, 33 KIMBERLY COUNTED 11/17/23 12/01/23 09:42 09:45 Wound Center Nurse 1 #6 RT GREAT TOE -Combined with other wound No -Current Size (cm) - Length 1 0.3 -Current Size (cm) - Width 0.9 0.4 -Current Size (cm) - Depth 0.1 0.1 -Total Square Cm 0.9 0.12 -Date of Last Picture (Recall this 11/17/23 field) -Photo Taken No -Epithelialization Small 1-33% -Tunneling No -Undermining/Tunneling No -Circular Undermining No -Exudate Amt Small None Present -Exudate Type Serosanguineous -Wound Margin Distinct, Outline Attached -Granulation Amt Large (67-100%) Small (1-33%) -Granulation Quality [place] -Slough/Fibrin Yes -Necrosis Amt Small (1-33%) Small (1-33%) -Necrotic Tissue Type Adherent Slough Eschar -Structure Exposed N/A -Texture (Carrie-wound Skin Appearance) Assessed Assessed -Moisture (Carrie-wound Skin Appearance) Assessed No Abnormality, Assessed -Color (Carrie-wound Skin Appearance) Assessed No Abnormality -Temperature (Carrie-wound Skin No Abnormality No Abnormality Appearance) (Pt Warm) (Pt Warm) -Tenderness on Palpation (Carrie-wound No No Skin Appearance) -Ulcer Cleansing Rinsed/ Rinsed/ Irrigated with Irrigated with Saline Saline -Foul Odor after Cleansing No No -Anesthetic Used 5% Lidocaine 5% Lidocaine Gel Gel #5 LLE Med POST OP -Combined with other wound No -Current Size (cm) - Length 0.1 0.1 -Current Size (cm) - Width 0.1 0.1 -Current Size (cm) - Depth 0.1 0.1 -Total Square Cm 0.01 0.01 -Date of Last Picture (Recall this 11/17/23 field) -Photo Taken No -Tunneling No -Undermining/Tunneling No -Circular Undermining No -Texture (Carrie-wound Skin Appearance) Assessed -Moisture (Carrie-wound Skin Appearance) Assessed -Color (Carrie-wound Skin Appearance) Assessed, Ecchymosis -Ulcer Cleansing Wound Cleanser -Foul Odor after Cleansing No -Wound Comment(s) KIMBERLY INTACT, INCISION IS 15CM LONG, 33 KIMBERLY COUNTED Lower Limb Edema Present Yes Right Calf (cm) 49.5 Right Ankle (cm) 31.5 Left Calf (cm) 62.5 Left Ankle (cm) 37.5 WC - Nurse 2 - General Ulcer CM Notes Start: 11/17/23 09:42 Freq: Status: Active Protocol: Activity Type Activity Date Activity User E-sign Co-sign Detail Recorded Client Recorded Date Recorded By Document 11/17/23 10:18 JF 0000 11/17/23 10:20 Document 12/01/23 09:52 [id number] 12/01/23 10:07 JF 11/17/23 12/01/23 10:18 09:52 Wound Center Nurse 2 #3 R Med Foot -Correct Patient No -Correct Side, Site, Position No -Correct Procedure No -Procedure Performed No -Post Debridement (cm) - Length 0 -Post Debridement (cm) - Width 0 -Post Debridement (cm) - Depth 0 -Total Square (Post) (cm) 0 -Area of Debridement (cm) - Length 0 -Area of Debridement (cm) - Width 0 -Total Square (Area) (cm) 0 -Wound/Ulcer Outcome Healed- Epithelialized #6 RT GREAT TOE -Time 09:53 -Correct Patient No Yes -Correct Side, Site, Position No Yes -Correct Procedure No Yes -Procedure Performed No Yes -Type of Procedure Debridement -Clinical Debridement Subcutaneous -Tissue Removed Subcutaneous -Post Debridement (cm) - Length 0.2 -Post Debridement (cm) - Width 0.3 -Post Debridement (cm) - Depth 0.1 -Total Square (Post) (cm) 0.06 -Area of Debridement (cm) - Length 0.2 -Area of Debridement (cm) - Width 0.3 -Total Square (Area) (cm) 0.06 -Tunneling No -Circular Undermining No -Wound/Ulcer Outcome Not Healed Not Healed -Ulcer Cleansing Rinsed/ Irrigated with Saline -Foul Odor after Cleansing No -Bioengineered Tissue No -Bleeding Controlled with Pressure -Treatment Response Procedure Tolerated Well -Offloading No -Debridement - Subq, 1st 20sq cm Yes #5 LLE Med POST OP -Time 09:57 -Correct Patient No Yes -Correct Side, Site, Position No Yes -Correct Procedure No Yes -Procedure Performed No Yes -Type of Procedure Debridement -Clinical Debridement Muscle / Fascia -Tissue Removed Muscle,Fascia -Post Debridement (cm) - Length 0 13.5 -Post Debridement (cm) - Width 0 2.5 -Post Debridement (cm) - Depth 0 3.0 -Total Square (Post) (cm) 0 33.75 -Area of Debridement (cm) - Length 0 13.5 -Area of Debridement (cm) - Width 0 2.5 -Total Square (Area) (cm) 0 33.75 -Tunneling No -Undermining/Tunneling No -Circular Undermining No -Wound/Ulcer Outcome Healed- Not Healed Surgical Closure -Ulcer Cleansing Rinsed/ Irrigated with Saline -Foul Odor after Cleansing No -Bioengineered Tissue No -Bleeding Controlled with Pressure -Treatment Response Procedure Tolerated Well -Offloading No -Debridement - Subq, 1st 20sq cm No -Debridement - Muscle / Fascia, 1st Yes 20sq cm -Debridement, Muscle/Fascia, ea addt'l 1 20sq cm or part thereof Pain Scale: 0-10 Numeric Is Patient Pain Free? Yes Yes WC - Nurse 3 - General Ulcer D/C NN Start: 11/17/23 09:42 Freq: Status: Active Protocol: Activity Type Activity Date Activity User E-sign Co-sign Detail Recorded Client Recorded Date Recorded By Document 11/17/23 11:37 RB wound 11/17/23 11:38 RB Document 12/01/23 10:15 KW [id number] 12/01/23 10:16 KW 11/17/23 12/01/23 11:37 10:15 Wound Care Center Nurse 3 #6 RT GREAT TOE -Ulcer Cleansing betadine Rinsed/ Irrigated with Saline -Primary Dressing Applied C Hydrogel ($) -Primary Dressing Covered/Secured with Dry Gauze, Dry Gauze, Secured with Secured with Tape Tape #5 LLE Med POST OP -Ulcer Cleansing betadine -Primary Dressing Applied Hysept ($) -Other Dressing abd dakins soaked gauze -Primary Dressing Covered/Secured with Dry Gauze,Dry Dry Gauze & Gauze & Roll Roll Gauze, Gauze,Secured Secured with with Tape Tape BLE -Compression Wrap Jori Wrap Left -Tubular Bandage Single Layer -Size of Tubigrip Used Size F -Size F ($) 1 Treatment Response Procedure Tolerated Well Pain Scale: 0-10 Numeric Is Patient Pain Free? Yes Yes WC - Visit Discharge Discharge Condition Stable Stable Ambulatory Status Wheelchair Wheelchair Transportation Private Auto Private Auto Medication Reconcilliation completed & No No provided to patient/care provider Clinical Summary of Care Provided Yes Yes Assessment/Plan Assessment/Plan (1) Type 2 diabetes mellitus with diabetic polyneuropathy: CODE(S): E11.42 - Type 2 diabetes mellitus with diabetic polyneuropathy PLAN: Exam performed. Intraoperative cultures sensitivities reviewed with patient. No additional antibiotics indicated at this time. Left leg demonstrates some necrosis proximally and distally along the incisional aspect. This was debrided with pickups and #15 blade. Upon debridement there is noted to be a large seroma along the distal aspect of the incision which likely contributed to incisional dehiscence. This was decompressed all 20 cc. Additional debridement was performed with 15 blade and pickups of all nonviable tissue excisionally removed from the wound base down to including level of muscle. Right foot was excisionally debrided down to including level of subcutaneous tissue using a 3 mm dermal curette of all nonviable tissue. Topical anesthesia was used. Patient tolerated procedure well. Hemostasis obtained with light compression bilaterally. Plan for antibiotic ointment to right hallux with offloading via surgical shoe right foot. Antibiotic ointment and gauze daily self dressing. Recommend left leg Dakin's wet to dry dressings with overlying double Tubigrip for compression. Be performed by home health care. Patient follow-up in 1 week. (2) Non-pressure chronic ulcer of other part of right foot with fat layer exposed: CODE(S): L97.512 - Non-pressure chronic ulcer of other part of right foot with fat layer exposed (3) Non-pressure chronic ulcer of left ankle with necrosis of muscle: CODE(S): L97.323 - Non-pressure chronic ulcer of left ankle with necrosis of muscle
[2023-12-08 09:50] VITALS: BP 156/90; PULSE 91; RESP 16; TEMP 35.6; BMI 61.4
--- NOTE | 2023-12-08 10:52 | PCM.WC.PN ---
History of Present Illness Date of Service: 12/08/23 Chief Complaint: Left History of Wound: Ms. Rosenberg is a 42-year-old diabetic female presenting to wound care center today for bilateral lower extremity ulcerations. Patient was referred to the wound care center from a doctor in [place]. She does see podiatry in [place]. Patient has evidence of left proximal and heel ulcerations as well as right foot ulceration secondary to peripheral neuropathy and diabetes. Patient is an uncontrolled diabetic with a blood sugar ranging from 300 mg/dL daily. Her A1c is 13%. Treatment has been with local wound care and oral antibiotics at this time. She does admit to trauma to the left proximal ulceration. Denies constitutional symptoms. No other pedal complaints at this time. Progress of Wound: Patient presents for follow-up status post left leg incision and drainage of multiple abscesses with delayed primary closure. Patient was discharged on p.o. doxycycline and ciprofloxacin. This was to treat positive wound cultures consisting of Serratia marcescens and Pseudomonas aeruginosa. Patient was seen at 1 week postop by Xochitl Sanchez. This was a courtesy visit. Dressing was changed. Patient presents today for additional follow-up. She denies any constitutional symptoms has been compliant with dressing care. Objective Data Objective Data Vital Signs: Vital Signs Temp Pulse Resp BP O2 Del Method 96.1 F L 91 16 156/90 H Room Air 12/08/23 09:50 12/08/23 09:50 12/08/23 09:50 12/08/23 09:50 12/08/23 09:50 Oxygen Delivery Method Room Air Weight: 162.502 kg Body Mass Index (BMI) 61.4 Physical Exam Narrative Neurovascular status unchanged from previous visit. There is noted to be full-thickness dehiscence at the proximal and distal aspects of the incisional sites. Upon debridement there is noted to be a large approximately 20 cc seroma expressed from the level of muscle. Pre and postdebridement measurements documented nursing notes. No acute and chronic signs of infection. Right dorsal PIPJ ulceration to the hallux full-thickness down to level of subcutaneous tissue clean granular base. Pre and postdebridement measurements documented nursing notes. No signs of infection. Musculoskeletal: No sign DVT. No wound forming deformity noted. Debridement Note Debridement Note Post-Debridement Measurements and Additional Note: Post-Debridement Measurements/Treatment WC - Nurse 1 - General Ulcer Assessment Start: 11/17/23 09:42 Freq: Status: Active Protocol: WC.LOWEXT Activity Type Activity Date Activity User E-sign Co-sign Detail Recorded Client Recorded Date Recorded By Document 11/17/23 09:42 KW kl 11/17/23 09:48 KW Document 12/01/23 09:45 JF [id number] 12/01/23 09:50 JF Document 12/08/23 09:50 KW [id number] 12/08/23 10:10 KW 11/17/23 12/01/23 12/08/23 09:42 09:45 09:50 - Today's Visit Information Type of service Follow-up Visit Follow-up Visit Follow-up Visit (Physician/TRANSPORT ANALYST (Physician/TRANSPORT ANALYST (Physician/TRANSPORT ANALYST ) ) ) Arrival Mode Ambulatory Wheelchair Wheelchair Accompanied by BOYFRIEND Patient Identification Verified (Name & Yes Yes Yes ) Patient Requires Transmission-Based No Precautions Height and Weight Body Mass Index (BMI) 61.4 61.4 61.4 BMI Classification Obese Obese Obese Vital Signs Temperature (97.8 F-99.1 F) 95.8 F L 95.8 F L 96.1 F L Temperature Source Temporal Temporal Temporal Pulse Rate (60-100) 108 H 89 91 Pulse Location Monitor Monitor Monitor Respiratory Rate (12-18) 18 16 16 Respiratory rate source Observation Observation Observation Oxygen Delivery Method Room Air Room Air Blood Pressure (90/60-120/80) 99/75 159/61 H 156/90 H Blood Pressure Mean (mm Hg) 83 93 112 Source Monitor Monitor Monitor Position Sitting Semi-Fowlers Sitting Blood Pressure Location Left Arm Right Forearm Left Arm History Since Last Visit- (Skip if this is Patient's initial visit) Have you changed medications since your No No No last visit? Any new allergies or adverse reactions No No No Had a fall/change in ADL's that may No No No increase risk of falls Signs or symptoms of abuse and/or No No No neglect since last visit Have you been in the hospital since your Yes No No last visit? Has dressing in place as prescribed No Yes Yes Has compression in place as prescribed No Yes Yes Has offloadiing in place as prescribed N/A N/A Yes Experienced any changes in pain level or No No No management Left Footwear Regular Shoe Regular Shoe Surgical Shoe with pressure relief insole Right Footwear Regular Shoe Regular Shoe Regular Shoe Pain Scale: 0-10 Numeric Is Patient Pain Free? Yes Yes Yes WC - Nurse 1 - General Ulcer Measurement Start: 11/17/23 09:42 Freq: Status: Active Protocol: Activity Type Activity Date Activity User E-sign Co-sign Detail Recorded Client Recorded Date Recorded By Document 11/17/23 09:42 KW 11/17/23 09:48 KW Edit Result 11/17/23 09:42 KW (1) kl 11/17/23 09:50 KW Document 12/01/23 09:45 JF [id number] 12/01/23 09:50 JF Document 12/08/23 09:50 KW [id number] 12/08/23 10:10 KW (1) #5 LLE Med POST OP - Wound Comment(s) KIMBERLY INTACT, INCISION IS 15CM LONG => KIMBERLY INTACT, INCISION IS 15CM LONG, 33 KIMBERLY COUNTED 11/17/23 12/01/23 12/08/23 09:42 09:45 09:50 Wound Center Nurse 1 #6 RT GREAT TOE -Combined with other wound No -Current Size (cm) - Length 1 0.3 -Current Size (cm) - Width 0.9 0.4 -Current Size (cm) - Depth 0.1 0.1 -Total Square Cm 0.9 0.12 -Date of Last Picture (Recall this 11/17/23 field) -Photo Taken No -Epithelialization Small 1-33% -Tunneling No -Undermining/Tunneling No -Circular Undermining No -Exudate Amt Small None Present -Exudate Type Serosanguineous -Wound Margin Distinct, Outline Attached -Granulation Amt Large (67-100%) Small (1-33%) -Granulation Quality Island Walk Island Walk -Slough/Fibrin Yes -Necrosis Amt Small (1-33%) Small (1-33%) -Necrotic Tissue Type Adherent Slough Eschar -Structure Exposed N/A -Texture (Carrie-wound Skin Appearance) Assessed Assessed -Moisture (Carrie-wound Skin Appearance) Assessed No Abnormality, Assessed -Color (Carrie-wound Skin Appearance) Assessed No Abnormality -Temperature (Carrie-wound Skin No Abnormality No Abnormality Appearance) (Pt Warm) (Pt Warm) -Tenderness on Palpation (Carrie-wound No No Skin Appearance) -Ulcer Cleansing Rinsed/ Rinsed/ Irrigated with Irrigated with Saline Saline -Foul Odor after Cleansing No No No -Anesthetic Used 5% Lidocaine 5% Lidocaine Gel Gel #5 LLE Med POST OP -Combined with other wound No -Current Size (cm) - Length 0.1 0.1 13.9 -Current Size (cm) - Width 0.1 0.1 3.8 -Current Size (cm) - Depth 0.1 0.1 2.2 -Total Square Cm 0.01 0.01 52.82 -Date of Last Picture (Recall this 11/17/23 12/08/23 field) -Photo Taken No -Tunneling No -Undermining/Tunneling No -Circular Undermining No -Exudate Amt Medium -Exudate Type Serosanguineous -Wound Margin Distinct, Outline Attached -Granulation Amt Medium (34-66%) -Granulation Quality Red -Necrosis Amt Medium (34-66%) -Necrotic Tissue Type Adherent Slough -Texture (Carrie-wound Skin Appearance) Assessed Assessed -Moisture (Carrie-wound Skin Appearance) Assessed Assessed -Color (Carrie-wound Skin Appearance) Assessed, Assessed, Ecchymosis Erythema -Temperature (Carrie-wound Skin No Abnormality Appearance) (Pt Warm) -Tenderness on Palpation (Carrie-wound No Skin Appearance) -Ulcer Cleansing Wound Cleanser Soap and Water -Foul Odor after Cleansing No No -Anesthetic Used 4% Lidocaine Solution -Wound Comment(s) KIMBERLY INTACT, INCISION IS 15CM LONG, 33 KIMBERLY COUNTED Lower Limb Edema Present Yes Right Calf (cm) 49.5 Right Ankle (cm) 31.5 Left Calf (cm) 62.5 Left Ankle (cm) 37.5 WC - Nurse 2 - General Ulcer CM Notes Start: 11/17/23 09:42 Freq: Status: Active Protocol: Activity Type Activity Date Activity User E-sign Co-sign Detail Recorded Client Recorded Date Recorded By Document 11/17/23 10:18 0000 11/17/23 10:20 Document 12/01/23 09:52 [id number] 12/01/23 10:07 Document 12/08/23 10:28 [id number] 12/08/23 10:37 JF 11/17/23 12/01/23 12/08/23 10:18 09:52 10:28 Wound Center Nurse 2 #6 RT GREAT TOE -Time 09:53 -Correct Patient No Yes No -Correct Side, Site, Position No Yes No -Correct Procedure No Yes No -Procedure Performed No Yes No -Type of Procedure Debridement -Clinical Debridement Subcutaneous -Tissue Removed Subcutaneous -Post Debridement (cm) - Length 0.2 0 -Post Debridement (cm) - Width 0.3 0 -Post Debridement (cm) - Depth 0.1 0 -Total Square (Post) (cm) 0.06 0 -Area of Debridement (cm) - Length 0.2 0 -Area of Debridement (cm) - Width 0.3 0 -Total Square (Area) (cm) 0.06 0 -Tunneling No -Circular Undermining No -Wound/Ulcer Outcome Not Healed Not Healed Healed- Epithelialized -Ulcer Cleansing Rinsed/ Irrigated with Saline -Foul Odor after Cleansing No -Bioengineered Tissue No -Bleeding Controlled with Pressure -Treatment Response Procedure Tolerated Well -Offloading No -Debridement - Subq, 1st 20sq cm Yes #3 R Med Foot -Correct Patient No -Correct Side, Site, Position No -Correct Procedure No -Procedure Performed No -Post Debridement (cm) - Length 0 -Post Debridement (cm) - Width 0 -Post Debridement (cm) - Depth 0 -Total Square (Post) (cm) 0 -Area of Debridement (cm) - Length 0 -Area of Debridement (cm) - Width 0 -Total Square (Area) (cm) 0 -Wound/Ulcer Outcome Healed- Epithelialized #5 LLE Med POST OP -Time 09:57 10:29 -Correct Patient No Yes Yes -Correct Side, Site, Position No Yes Yes -Correct Procedure No Yes Yes -Procedure Performed No Yes Yes -Type of Procedure Debridement Debridement -Clinical Debridement Muscle / Fascia Muscle / Fascia -Tissue Removed Muscle,Fascia Muscle,Fascia -Post Debridement (cm) - Length 0 13.5 14 -Post Debridement (cm) - Width 0 2.5 4 -Post Debridement (cm) - Depth 0 3.0 3.8 -Total Square (Post) (cm) 0 33.75 56 -Area of Debridement (cm) - Length 0 13.5 14 -Area of Debridement (cm) - Width 0 2.5 4 -Total Square (Area) (cm) 0 33.75 56 -Tunneling No No -Undermining/Tunneling No No -Circular Undermining No No -Wound/Ulcer Outcome Healed- Not Healed Not Healed Surgical Closure -Ulcer Cleansing Rinsed/ Rinsed/ Irrigated with Irrigated with Saline Saline -Foul Odor after Cleansing No No -Bioengineered Tissue No No -Bleeding Controlled with Pressure Pressure -Treatment Response Procedure Procedure Tolerated Well Tolerated Well -Offloading No No -Debridement - Subq, 1st 20sq cm No -Debridement - Muscle / Fascia, 1st Yes Yes 20sq cm -Debridement, Muscle/Fascia, ea addt'l 1 2 20sq cm or part thereof Pain Scale: 0-10 Numeric Is Patient Pain Free? Yes Yes Yes - Nurse 3 - General Ulcer D/C NN Start: 11/17/23 09:42 Freq: Status: Active Protocol: Activity Type Activity Date Activity User E-sign Co-sign Detail Recorded Client Recorded Date Recorded By Document 11/17/23 11:37 RB wound 11/17/23 11:38 RB Document 12/01/23 10:15 KW [id number] 12/01/23 10:16 KW 11/17/23 12/01/23 11:37 10:15 Wound Care Center Nurse 3 #6 RT GREAT TOE -Ulcer Cleansing betadine Rinsed/ Irrigated with Saline -Primary Dressing Applied C Hydrogel ($) -Primary Dressing Covered/Secured with Dry Gauze, Dry Gauze, Secured with Secured with Tape Tape #5 LLE Med POST OP -Ulcer Cleansing betadine -Primary Dressing Applied Hysept ($) -Other Dressing abd dakins soaked gauze -Primary Dressing Covered/Secured with Dry Gauze,Dry Dry Gauze & Gauze & Roll Roll Gauze, Gauze,Secured Secured with with Tape Tape BLE -Compression Wrap Jori Wrap Left -Tubular Bandage Single Layer -Size of Tubigrip Used Size F -Size F ($) 1 Treatment Response Procedure Tolerated Well Pain Scale: 0-10 Numeric Is Patient Pain Free? Yes Yes WC - Visit Discharge Discharge Condition Stable Stable Ambulatory Status Wheelchair Wheelchair Transportation Private Auto Private Auto Medication Reconcilliation completed & No No provided to patient/care provider Clinical Summary of Care Provided Yes Yes Assessment/Plan Assessment/Plan (1) Type 2 diabetes mellitus with diabetic polyneuropathy: CODE(S): E11.42 - Type 2 diabetes mellitus with diabetic polyneuropathy PLAN: Exam performed. Intraoperative cultures sensitivities reviewed with patient. No additional antibiotics indicated at this time. Left leg demonstrates some necrosis proximally and distally along the incisional aspect. This was debrided down to and including level of muscle with a combination of pickups and #15 blade, dissecting scizzors and 7mm dermal curette, all nonviable tissue removed. No residual hematoma noted. Pre and postdebridement measurements documented nursing notes. Hemostasis obtained with compression. Patient tolerated procedure well. Topical anesthesia used. Additionally patient has neuropathy. Right hallux wound healed. Continue daily Dakin's wet to dry at the left leg wound with overlying compression Continue compression and elevation for edema management Due to issues with dialysis patient will likely follow-up with Dr. urena in the wound care center Continue follow-ups weekly (2) Non-pressure chronic ulcer of other part of right foot with fat layer exposed: CODE(S): L97.512 - Non-pressure chronic ulcer of other part of right foot with fat layer exposed (3) Non-pressure chronic ulcer of left ankle with necrosis of muscle: CODE(S): L97.323 - Non-pressure chronic ulcer of left ankle with necrosis of muscle
--- NOTE | 2023-12-10 09:05 | WC ---
PHOTO 12/08/23 LEFT LEG
== END 2023-12-12 23:59 | disposition home or self-care (01) ==
LOC: WC 09:45
PROVIDERS: PCP Nurse Practitioner Family; Referring Provider Internal Medicine; Visit Provider Podiatrist
DX: E11.621 Type 2 diabetes mellitus with foot ulcer (principal); L97.323 Non-pressure chronic ulcer of left ankle with necrosis of muscle; L97.422 Non-pressure chronic ulcer of left heel and midfoot with fat layer exposed; L97.512 Non-pressure chronic ulcer of other part of right foot with fat layer exposed; E11.42 Type 2 diabetes mellitus with diabetic polyneuropathy; Z79.4 Long term (current) use of insulin; S91.101A Unspecified open wound of right great toe without damage to nail, initial encounter; W19.XXXA Unspecified fall, initial encounter; Z79.84 Long term (current) use of oral hypoglycemic drugs; Z79.890 Hormone replacement therapy; Z79.899 Other long term (current) drug therapy
CPT/HCPCS: 11042; 11043; 11046; 99214; G0463

== ENCOUNTER 2023-12-30 10:15 | Outpatient (RCR) | payer MEDICAID, SELFPAY ==
[2023-12-13 00:41] VITALS: BP 165/92; PULSE 102; RESP 24; TEMP 35.7; BMI 61.4
[2023-12-23 11:17] VITALS: BP 165/92; PULSE 95; RESP 18; TEMP 36.1; BMI 61.4
--- NOTE | 2023-12-23 15:20 | PCM.WC.PN ---
History of Present Illness Date of Service: 12/23/23 Chief Complaint: Left History of Wound: Ms. Rosenberg is a 43-year-old diabetic female presenting to wound care center today for bilateral lower extremity ulcerations. Patient was referred to the wound care center from a doctor in [place]. She does see podiatry in [place]. Patient has evidence of left proximal and heel ulcerations as well as right foot ulceration secondary to peripheral neuropathy and diabetes. Patient is an uncontrolled diabetic with a blood sugar ranging from 300 mg/dL daily. Her A1c is 13%. Treatment has been with local wound care and oral antibiotics at this time. She does admit to trauma to the left proximal ulceration. Denies constitutional symptoms. No other pedal complaints at this time. Subjective Subjective Patient presents for follow-up status post left leg incision and drainage of multiple abscesses with delayed primary closure. Dressing was changed. Patient presents today for additional follow-up. She denies any constitutional symptoms has been compliant with dressing care. Objective Data Objective Data Vital Signs: Vital Signs Temp Pulse Resp BP O2 Del Method 97.0 F L 95 18 165/92 H Room Air 12/23/23 11:17 12/23/23 11:17 12/23/23 11:17 12/23/23 11:17 12/23/23 11:17 Oxygen Delivery Method Room Air Weight: 162.502 kg Body Mass Index (BMI) 61.4 Physical Exam Narrative Vascular: DP and PT pulses are palpable. CFT is brisk. Blanchable erythema appreciated to the periwound of the left lower extremity. Neurological: Light touch intact. Patient response to painful stimuli. Protective station is diminished. Dermatological: 3 full-thickness ulcerations to the lateral aspect of the left leg. Left superior ulceration measures 3.0 x 3.5 x 0.2 cm. Left medial ulceration measures 6.5 x 3.0 x 2.0 cm. Left inferior ulceration measures 0.5 x 0.6 x 5.4 cm. Evidence of purulent drainage from the inferior ulceration that was flushed and evacuated. After this was completed there is evidence of sanguinous drainage. Excisional debridement down to and including subcutaneous tissue with a number 5 mm dermal curette to the left superior ulceration without incident. Predebridement measurement is 2.8 x 3.3 x 0.1 cm. measurement is 3.3 x 3.5 x 0.2 cm. Excisional debridement down to and including subcutaneous tissue, fascia and muscle with a number 5 mm dermal curette to the left middle ulceration without incident. Predebridement measurement is 6.3 x 2.8 x 1.6 cm. Postdebridement measurement is 6.5 x 3.0 x 2.0 cm. Excisional debridement down to and including subcutaneous tissue fascia and muscle with a number 3 mm dermal curette to the left inferior ulceration of the incident. Predebridement measurement is 0.4 x 0.4 x 3.0 cm. Postdebridement measurement is 0.5 x 0.6 x 5.4 cm. Musculoskeletal: Mild pain on palpation to the left inferior ulceration. No pain with calf pressure. Debridement Note Debridement Note Debridement Free Text: Excisional debridement down to and including subcutaneous tissue with a number 5 mm dermal curette to the left superior ulceration without incident. Predebridement measurement is 2.8 x 3.3 x 0.1 cm. measurement is 3.3 x 3.5 x 0.2 cm. Excisional debridement down to and including subcutaneous tissue, fascia and muscle with a number 5 mm dermal curette to the left middle ulceration without incident. Predebridement measurement is 6.3 x 2.8 x 1.6 cm. Postdebridement measurement is 6.5 x 3.0 x 2.0 cm. Excisional debridement down to and including subcutaneous tissue fascia and muscle with a number 3 mm dermal curette to the left inferior ulceration of the incident. Predebridement measurement is 0.4 x 0.4 x 3.0 cm. Postdebridement measurement is 0.5 x 0.6 x 5.4 cm. Post-Debridement Measurements and Additional Note: Post-Debridement Measurements/Treatment - Nurse 1 - General Ulcer Assessment Start: 12/23/23 11:16 Freq: Status: Active Protocol: AIME Activity Type Activity Date Activity User E-sign Co-sign Detail Recorded Client Recorded Date Recorded By Document 12/23/23 11:17 MARILY [id number] 12/23/23 11:24 MARILY 12/23/23 11:17 - Today's Visit Information Type of service Follow-up Visit (Physician/[facility] ) Arrival Mode Wheelchair Patient Identification Verified (Name & Yes ) Height and Weight Body Mass Index (BMI) 61.4 BMI Classification Obese Vital Signs Temperature (97.8 F-99.1 F) 97.0 F L Temperature Source Temporal Pulse Rate (60-100) 95 Pulse Location Monitor Respiratory Rate (12-18) 18 Respiratory rate source Observation Oxygen Delivery Method Room Air Blood Pressure (90/60-120/80) 165/92 H Blood Pressure Mean (mm Hg) 116 Source Monitor Position Semi-Fowlers Blood Pressure Location Left Forearm History Since Last Visit- (Skip if this is Patient's initial visit) Have you changed medications since your No last visit? Any new allergies or adverse reactions No Had a fall/change in ADL's that may No increase risk of falls Signs or symptoms of abuse and/or No neglect since last visit Have you been in the hospital since your No last visit? Has dressing in place as prescribed Yes Has compression in place as prescribed Yes Has offloadiing in place as prescribed Yes Experienced any changes in pain level or No management Left Footwear No Footwear Right Footwear Regular Shoe Pain Scale: 0-10 Numeric Is Patient Pain Free? Yes ZACH - Nurse 1 - General Ulcer Measurement Start: 12/23/23 11:16 Freq: Status: Active Protocol: Activity Type Activity Date Activity User E-sign Co-sign Detail Recorded Client Recorded Date Recorded By Document 12/23/23 11:17 [id number] 12/23/23 11:24 12/23/23 11:17 Wound Center Nurse 1 #5 LLE SUPERIOR -Current Size (cm) - Length 17 -Current Size (cm) - Width 4 -Current Size (cm) - Depth 2 -Total Square Cm 68 -Date of Last Picture (Recall this 12/23/23 field) -Exudate Amt Large -Exudate Type Serosanguineous -Wound Margin Thickened -Granulation Amt Medium (34-66%) -Granulation Quality Red -Necrosis Amt Medium (34-66%) -Necrotic Tissue Type Eschar -Texture (Carrie-wound Skin Appearance) Assessed -Moisture (Carrie-wound Skin Appearance) Assessed, Weeping -Color (Carrie-wound Skin Appearance) Assessed -Temperature (Carrie-wound Skin No Abnormality Appearance) (Pt Warm) -Tenderness on Palpation (Carrie-wound No Skin Appearance) -Ulcer Cleansing Soap and Water -Foul Odor after Cleansing No -Anesthetic Used 4% Lidocaine Solution WC - Nurse 2 - General Ulcer CM Notes Start: 12/23/23 11:16 Freq: Status: Active Protocol: Activity Type Activity Date Activity User E-sign Co-sign Detail Recorded Client Recorded Date Recorded By Document 12/23/23 11:48 [email or web address] [id number] 12/23/23 11:55 NAJMA 12/23/23 11:48 Wound Center Nurse 2 7-LLE INFERIOR -Time 11:54 -Correct Patient Yes -Correct Side, Site, Position Yes -Correct Procedure Yes -Procedure Performed Yes -Type of Procedure Debridement -Clinical Debridement Subcutaneous -Tissue Removed Subcutaneous -Post Debridement (cm) - Length 0.5 -Post Debridement (cm) - Width 0.6 -Post Debridement (cm) - Depth 5.4 -Total Square (Post) (cm) 0.30 -Area of Debridement (cm) - Length 0.5 -Area of Debridement (cm) - Width 0.6 -Total Square (Area) (cm) 0.30 -Tunneling No -Undermining/Tunneling No -Circular Undermining No -Wound/Ulcer Outcome Not Healed -Ulcer Cleansing Rinsed/ Irrigated with Saline -Foul Odor after Cleansing No -Bioengineered Tissue No -Bleeding Controlled with Pressure -Treatment Response Procedure Tolerated Well -Offloading No -Debridement - Subq, 1st 20sq cm No 6-LLE MIDDLE ULCER -Time 11:50 -Correct Patient Yes -Correct Side, Site, Position Yes -Correct Procedure Yes -Procedure Performed Yes -Type of Procedure Debridement -Clinical Debridement Muscle / Fascia -Tissue Removed Muscle,Fascia -Post Debridement (cm) - Length 6.5 -Post Debridement (cm) - Width 3 -Post Debridement (cm) - Depth 2.0 -Total Square (Post) (cm) 19.5 -Area of Debridement (cm) - Length 6.5 -Area of Debridement (cm) - Width 3.0 -Total Square (Area) (cm) 19.50 -Tunneling No -Undermining/Tunneling No -Circular Undermining No -Wound/Ulcer Outcome Not Healed -Ulcer Cleansing Rinsed/ Irrigated with Saline -Foul Odor after Cleansing No -Bioengineered Tissue No -Bleeding Controlled with Pressure -Treatment Response Procedure Tolerated Well -Offloading No -Debridement - Muscle / Fascia, 1st Yes 20sq cm #5 LLE SUPERIOR -Time 11:50 -Correct Patient Yes -Correct Side, Site, Position Yes -Correct Procedure Yes -Procedure Performed Yes -Type of Procedure Debridement -Clinical Debridement Subcutaneous -Tissue Removed Subcutaneous -Post Debridement (cm) - Length 3.0 -Post Debridement (cm) - Width 3.5 -Post Debridement (cm) - Depth 0.2 -Total Square (Post) (cm) 10.50 -Area of Debridement (cm) - Length 3.0 -Area of Debridement (cm) - Width 3.5 -Total Square (Area) (cm) 10.50 -Tunneling No -Undermining/Tunneling No -Circular Undermining No -Wound/Ulcer Outcome Not Healed -Ulcer Cleansing Rinsed/ Irrigated with Saline -Foul Odor after Cleansing No -Bioengineered Tissue No -Bleeding Controlled with Pressure -Treatment Response Procedure Tolerated Well -Offloading No -Debridement - Subq, 1st 20sq cm Yes Pain Scale: 0-10 Numeric Is Patient Pain Free? Yes WC - Nurse 3 - General Ulcer D/C NN Start: 12/23/23 11:16 Freq: Status: Active Protocol: Activity Type Activity Date Activity User E-sign Co-sign Detail Recorded Client Recorded Date Recorded By Document 12/23/23 12:03 ML [id number] 12/23/23 12:06 ML 12/23/23 12:03 Wound Care Center Nurse 3 7-LLE INFERIOR -Other Dressing DAKINS MOISTENED GAUZE PACKED -Primary Dressing Covered/Secured with Dry Gauze,Dry Gauze & Roll Gauze,Secured with Tape 6-LLE MIDDLE ULCER -Ulcer Cleansing Rinsed/ Irrigated with Saline -Other Dressing DAKINS MOISTENED GAUZE PACKED IN ULCER -Primary Dressing Covered/Secured with Dry Gauze,Dry Gauze & Roll Gauze,Secured with Tape #5 LLE SUPERIOR -Ulcer Cleansing Rinsed/ Irrigated with Saline -Primary Dressing Applied Fibracol Plus 4x4,Hysept ($) -Primary Dressing Covered/Secured with Dry Gauze,Dry Gauze & Roll Gauze,Secured with Tape -Fibracol Plus 4x4 1 Pain Scale: 0-10 Numeric Is Patient Pain Free? Yes Assessment/Plan Assessment/Plan (1) Non-pressure chronic ulcer of left calf with fat layer exposed: CODE(S): L97.222 - Non-pressure chronic ulcer of left calf with fat layer exposed PLAN: Patient was examined and evaluated. All findings were discussed with the patient. All questions were answered to the patient's satisfaction. Excisional debridement down to and including subcutaneous tissue with a number 5 mm dermal curette to the left superior ulceration without incident. Predebridement measurement is 2.8 x 3.3 x 0.1 cm. measurement is 3.3 x 3.5 x 0.2 cm. Excisional debridement down to and including subcutaneous tissue, fascia and muscle with a number 5 mm dermal curette to the left middle ulceration without incident. Predebridement measurement is 6.3 x 2.8 x 1.6 cm. Postdebridement measurement is 6.5 x 3.0 x 2.0 cm. Excisional debridement down to and including subcutaneous tissue fascia and muscle with a number 3 mm dermal curette to the left inferior ulceration of the incident. Predebridement measurement is 0.4 x 0.4 x 3.0 cm. Postdebridement measurement is 0.5 x 0.6 x 5.4 cm. The left lower extremities were cleaned patted dry. Collagen was applied to the proximal ulceration followed by Dakin's packing to the middle and inferior ulceration. Will begin authorization for skin graft substitute to the proximal ulceration to left lower extremity. We also begin authorization for a negative pressure wound VAC to the middle ulceration due to its depth size. Long discussion regarding lifestyle change for the patient as she is at severe risk for the below the knee versus [id number] amputation if her wounds continue to progress to a unkept healable stage. Educated the patient to stop smoking and continue to control her blood sugar between 100 to 150 mL/dL. Educated patient be compliant with her dressing changes. Educated the patient be compliant with her dialysis. All this was understanding by the patient and she showed eagerness to begin lifestyle change. Follow-up at the wound care center with Dr. Maguire in 1 week. (2) Non-pressure chronic ulcer of left calf with muscle involvement without evidence of necrosis: CODE(S): L97.225 - Non-pressure chronic ulcer of left calf with muscle involvement without evidence of necrosis (3) Other specified peripheral vascular diseases: CODE(S): I73.89 - Other specified peripheral vascular diseases
--- NOTE | 2023-12-24 08:51 | WC ---
PHOTO 12/23/23 LEFT MEDIAL LE POST OP
[2023-12-30 10:25] VITALS: BP 128/77; PULSE 90; RESP 18; TEMP 35.6; BMI 61.4
--- NOTE | 2023-12-30 12:33 | PCM.WC.PN ---
History of Present Illness Date of Service: 12/30/23 Chief Complaint: Left History of Wound: Ms. Rosenberg is a 43-year-old diabetic female presenting to wound care center today for bilateral lower extremity ulcerations. Patient was referred to the wound care center from a doctor in [place]. She does see podiatry in [place]. Patient has evidence of left proximal and heel ulcerations as well as right foot ulceration secondary to peripheral neuropathy and diabetes. Patient is an uncontrolled diabetic with a blood sugar ranging from 300 mg/dL daily. Her A1c is 13%. Treatment has been with local wound care and oral antibiotics at this time. She does admit to trauma to the left proximal ulceration. Denies constitutional symptoms. No other pedal complaints at this time. Subjective Subjective Ms Rosenberg is a 43-year-old diabetic female presenting to wound care center today for follow-up evaluation of left full-thickness ulceration x 3. Patient has been approved for wound VAC as well as amniotic skin graft substitute to left lower extremity. Patient does have home health care. She is keeping her blood sugar no higher than 100 mg/dL as stated today. She is following up for routine dialysis. Denies trauma. Denies constitutional symptoms. No other pedal complaints at this time. Objective Data Objective Data Vital Signs: Vital Signs Temp Pulse Resp BP O2 Del Method 96.0 F L 90 18 128/77 H Room Air 12/30/23 10:25 12/30/23 10:25 12/30/23 10:25 12/30/23 10:25 12/30/23 10:25 Oxygen Delivery Method Room Air Weight: 162.502 kg Body Mass Index (BMI) 61.4 Physical Exam Narrative Vascular: DP and PT pulses are palpable. CFT is brisk. Blanchable erythema appreciated to the periwound of the left lower extremity. Neurological: Light touch intact. Patient response to painful stimuli. Protective station is diminished. Dermatological: 3 full-thickness ulcerations to the lateral aspect of the left leg. Left superior ulceration measures 2.5 x 4.0 x 0.1 cm. Left medial ulceration measures 6.5 x 4.0 x 5.0 cm, tunneling to 3:00. Left inferior ulceration measures 0.5 x 0.9 x 4.0 cm. Evidence of serous sanguinous drainage to the inferior ulcer. Excisional debridement down to and including subcutaneous tissue with a number 5 mm dermal curette to the left superior ulceration without incident. Predebridement measurement is 2.4 x 3.9 x 0.1 cm. Postdebridement measurement is 2.5 x 4.0 x 0.1 cm. EpiFix mesh 4.0 x 4.5 cm was applied to the left superior full-thickness ulceration with 100% use. First application. The graft site was free and clear of any infection. The wound/skin graft substitute was dressed with nonadherent bandage secured in place with Steri-Strips followed by bolster dressing as well as a double layer Tubigrip. Excisional debridement down to and including subcutaneous tissue, fascia and muscle with a number 5 mm dermal curette to the left middle ulceration without incident. Predebridement measurement is 6.4 x 3.9 x 3.0 cm. Postdebridement measurement is 6.5 x 4.0 x 5.0 cm. Excisional debridement down to and including subcutaneous tissue fascia and muscle with a number 3 mm dermal curette to the left inferior ulceration of the incident. Predebridement measurement is 0.4 x 0.8 x 3.0 cm. Postdebridement measurement is 0.5 x 0.9 x 4.0 cm. Musculoskeletal: Mild pain on palpation to the left inferior ulceration. No pain with calf pressure. Debridement Note Debridement Note Debridement Free Text: Excisional debridement down to and including subcutaneous tissue with a number 5 mm dermal curette to the left superior ulceration without incident. Predebridement measurement is 2.4 x 3.9 x 0.1 cm. Postdebridement measurement is 2.5 x 4.0 x 0.1 cm. EpiFix mesh 4.0 x 4.5 cm was applied to the left superior full-thickness ulceration with 100% use. First application. The graft site was free and clear of any infection. The wound/skin graft substitute was dressed with nonadherent bandage secured in place with Steri-Strips followed by bolster dressing as well as a double layer Tubigrip. Excisional debridement down to and including subcutaneous tissue, fascia and muscle with a number 5 mm dermal curette to the left middle ulceration without incident. Predebridement measurement is 6.4 x 3.9 x 3.0 cm. Postdebridement measurement is 6.5 x 4.0 x 5.0 cm. Excisional debridement down to and including subcutaneous tissue fascia and muscle with a number 3 mm dermal curette to the left inferior ulceration of the incident. Predebridement measurement is 0.4 x 0.8 x 3.0 cm. Postdebridement measurement is 0.5 x 0.9 x 4.0 cm. Post-Debridement Measurements and Additional Note: Post-Debridement Measurements/Treatment WC - Nurse 1 - General Ulcer Assessment Start: 12/23/23 11:16 Freq: Status: Active Protocol: [email or web address] Activity Type Activity Date Activity User E-sign Co-sign Detail Recorded Client Recorded Date Recorded By Document 12/23/23 11:17 KW [id number] 12/23/23 11:24 KW Document 12/30/23 10:25 KW [id number] 12/30/23 10:42 KW 12/23/23 12/30/23 11:17 10:25 WC - Today's Visit Information Type of service Follow-up Visit Follow-up Visit (Physician/[employer]NATIONAL [employer] OFFICER (Physician/INTERNATIONAL FIRST OFFICER ) ) Arrival Mode Wheelchair Wheelchair Accompanied by friend Patient Identification Verified (Name & Yes Yes ) Height and Weight Body Mass Index (BMI) 61.4 61.4 BMI Classification Obese Obese Vital Signs Temperature (97.8 F-99.1 F) 97.0 F L 96.0 F L Temperature Source Temporal Temporal Pulse Rate (60-100) 95 90 Pulse Location Monitor Monitor Respiratory Rate (12-18) 18 18 Respiratory rate source Observation Observation Oxygen Delivery Method Room Air Room Air Blood Pressure (90/60-120/80) 165/92 H 128/77 H Blood Pressure Mean (mm Hg) 116 94 Source Monitor Monitor Position Semi-Fowlers Semi-Fowlers Blood Pressure Location Left Forearm Right Forearm History Since Last Visit- (Skip if this is Patient's initial visit) Have you changed medications since your No No last visit? Any new allergies or adverse reactions No No Had a fall/change in ADL's that may No No increase risk of falls Signs or symptoms of abuse and/or No No neglect since last visit Have you been in the hospital since your No No last visit? Has dressing in place as prescribed Yes Yes Has compression in place as prescribed Yes Yes Has offloadiing in place as prescribed Yes N/A Experienced any changes in pain level or No No management Left Footwear No Footwear Regular Shoe Right Footwear Regular Shoe Regular Shoe Pain Scale: 0-10 Numeric Is Patient Pain Free? Yes Yes WC - Nurse 1 - General Ulcer Measurement Start: 12/23/23 11:16 Freq: Status: Active Protocol: Activity Type Activity Date Activity User E-sign Co-sign Detail Recorded Client Recorded Date Recorded By Document 12/23/23 11:17 KW [id number] 12/23/23 11:24 KW Document 12/30/23 10:25 KW [id number] 12/30/23 10:42 KW 12/23/23 12/30/23 11:17 10:25 Wound Center Nurse 1 7-LLE INFERIOR -Current Size (cm) - Length 0.6 -Current Size (cm) - Width 1 -Current Size (cm) - Depth 0.2 -Total Square Cm 0.6 -Date of Last Picture (Recall this 12/30/23 field) -Circular Undermining Yes -Exudate Amt Medium -Exudate Type Serosanguineous -Wound Margin Distinct, Outline Attached -Granulation Amt Large (67-100%) -Granulation Quality Red -Texture (Carrie-wound Skin Appearance) Assessed -Moisture (Carrie-wound Skin Appearance) Assessed -Color (Carrie-wound Skin Appearance) Assessed -Temperature (Carrie-wound Skin No Abnormality Appearance) (Pt Warm) -Tenderness on Palpation (Carrie-wound No Skin Appearance) -Ulcer Cleansing Soap and Water -Foul Odor after Cleansing No -Anesthetic Used 4% Lidocaine Solution 6-LLE MIDDLE ULCER -Current Size (cm) - Length 5.3 -Current Size (cm) - Width 4 -Current Size (cm) - Depth 2 -Total Square Cm 21.2 -Date of Last Picture (Recall this 12/30/23 field) -Tunneling Yes -Tunneling Position (O'clock) 2 -Tunneling Distance (cm) 4 -Granulation Amt Medium (34-66%) -Granulation Quality Red -Necrosis Amt Medium (34-66%) -Necrotic Tissue Type Adherent Slough -Texture (Carrie-wound Skin Appearance) Assessed -Moisture (Carrie-wound Skin Appearance) Assessed -Color (Carrie-wound Skin Appearance) Assessed -Temperature (Carrie-wound Skin No Abnormality Appearance) (Pt Warm) -Tenderness on Palpation (Carrie-wound No Skin Appearance) -Ulcer Cleansing Soap and Water -Foul Odor after Cleansing No -Anesthetic Used 4% Lidocaine Solution #5 LLE SUPERIOR -Current Size (cm) - Length 17 2.8 -Current Size (cm) - Width 4 4 -Current Size (cm) - Depth 2 0.2 -Total Square Cm 68 11.2 -Date of Last Picture (Recall this 12/23/23 12/30/23 field) -Exudate Amt Large Medium -Exudate Type Serosanguineous Serosanguineous -Wound Margin Thickened Distinct, Outline Attached -Granulation Amt Medium (34-66%) Medium (34-66%) -Granulation Quality Red Red -Necrosis Amt Medium (34-66%) Medium (34-66%) -Necrotic Tissue Type Eschar Adherent Slough -Texture (Carrie-wound Skin Appearance) Assessed Assessed -Moisture (Carrie-wound Skin Appearance) Assessed, Assessed Weeping -Color (Carrie-wound Skin Appearance) Assessed Assessed -Temperature (Carrie-wound Skin No Abnormality No Abnormality Appearance) (Pt Warm) (Pt Warm) -Tenderness on Palpation (Carrie-wound No No Skin Appearance) -Ulcer Cleansing Soap and Water Soap and Water -Foul Odor after Cleansing No No -Anesthetic Used 4% Lidocaine 4% Lidocaine Solution Solution WC - Nurse 2 - General Ulcer CM Notes Start: 12/23/23 11:16 Freq: Status: Active Protocol: Activity Type Activity Date Activity User E-sign Co-sign Detail Recorded Client Recorded Date Recorded By Document 12/23/23 11:48 JF [id number] 12/23/23 11:55 Document 12/30/23 11:00 JF [id number] 12/30/23 11:11 12/23/23 12/30/23 11:48 11:00 Wound Center Nurse 2 7-LLE INFERIOR -Time 11:54 11:00 -Correct Patient Yes Yes -Correct Side, Site, Position Yes Yes -Correct Procedure Yes Yes -Procedure Performed Yes Yes -Type of Procedure Debridement Debridement -Clinical Debridement Subcutaneous Muscle / Fascia -Tissue Removed Subcutaneous Muscle,Fascia -Post Debridement (cm) - Length 0.5 0.5 -Post Debridement (cm) - Width 0.6 0.9 -Post Debridement (cm) - Depth 5.4 4.0 -Total Square (Post) (cm) 0.30 0.45 -Area of Debridement (cm) - Length 0.5 0.5 -Area of Debridement (cm) - Width 0.6 0.9 -Total Square (Area) (cm) 0.30 0.45 -Tunneling No No -Undermining/Tunneling No No -Circular Undermining No No -Wound/Ulcer Outcome Not Healed Not Healed -Ulcer Cleansing Rinsed/ Rinsed/ Irrigated with Irrigated with Saline Saline -Foul Odor after Cleansing No No -Bioengineered Tissue No No -Bleeding Controlled with Pressure Pressure -Treatment Response Procedure Procedure Tolerated Well Tolerated Well -Offloading No No -Debridement - Subq, 1st 20sq cm No -Debridement - Muscle / Fascia, 1st No 20sq cm 6-LLE MIDDLE ULCER -Time 11:50 11:00 -Correct Patient Yes Yes -Correct Side, Site, Position Yes Yes -Correct Procedure Yes Yes -Procedure Performed Yes Yes -Type of Procedure Debridement Debridement -Clinical Debridement Muscle / Fascia Muscle / Fascia -Tissue Removed Muscle,Fascia Muscle,Fascia -Post Debridement (cm) - Length 6.5 6.5 -Post Debridement (cm) - Width 3 4.0 -Post Debridement (cm) - Depth 2.0 5 -Total Square (Post) (cm) 19.5 26.00 -Area of Debridement (cm) - Length 6.5 6.5 -Area of Debridement (cm) - Width 3.0 4 -Total Square (Area) (cm) 19.50 26.0 -Tunneling No No -Undermining/Tunneling No No -Circular Undermining No No -Wound/Ulcer Outcome Not Healed Not Healed -Ulcer Cleansing Rinsed/ Rinsed/ Irrigated with Irrigated with Saline Saline -Foul Odor after Cleansing No No -Bioengineered Tissue No Yes -Type of Bioengineered Tissue Epifix Mesh -Bleeding Controlled with Pressure Pressure -Treatment Response Procedure Procedure Tolerated Well Tolerated Well -Offloading No No -Debridement - Muscle / Fascia, 1st Yes Yes 20sq cm -Debridement, Muscle/Fascia, ea addt'l 1 20sq cm or part thereof #5 LLE SUPERIOR -Time 11:50 11:01 -Correct Patient Yes Yes -Correct Side, Site, Position Yes Yes -Correct Procedure Yes Yes -Procedure Performed Yes Yes -Type of Procedure Debridement Debridement -Clinical Debridement Subcutaneous Subcutaneous -Tissue Removed Subcutaneous Subcutaneous -Post Debridement (cm) - Length 3.0 2.5 -Post Debridement (cm) - Width 3.5 4 -Post Debridement (cm) - Depth 0.2 0.1 -Total Square (Post) (cm) 10.50 10.0 -Area of Debridement (cm) - Length 3.0 0.5 -Area of Debridement (cm) - Width 3.5 4.0 -Total Square (Area) (cm) 10.50 2.00 -Tunneling No No -Undermining/Tunneling No No -Circular Undermining No No -Wound/Ulcer Outcome Not Healed Not Healed -Ulcer Cleansing Rinsed/ Rinsed/ Irrigated with Irrigated with Saline Saline -Foul Odor after Cleansing No No -Bioengineered Tissue No Yes -Type of Bioengineered Tissue Epifix Mesh -Expiration Date 07/12/28 -Product Lot Number [id number] -Percent Used 100 -Lot number of Saline Used [id number] -Bleeding Controlled with Pressure Pressure -Treatment Response Procedure Procedure Tolerated Well Tolerated Well -Offloading No No -Debridement - Subq, 1st 20sq cm Yes No -Apply Skin Sub - 1st 25 sq cm - Legs 1 -Epifix Mesh (per sq cm) 11 Pain Scale: 0-10 Numeric Is Patient Pain Free? Yes Yes WC - Nurse 3 - General Ulcer D/C NN Start: 12/23/23 11:16 Freq: Status: Active Protocol: Activity Type Activity Date Activity User E-sign Co-sign Detail Recorded Client Recorded Date Recorded By Document 12/23/23 12:03 ML [id number] 12/23/23 12:06 ML Document 12/30/23 11:45 KW [id number] 12/30/23 11:46 KW 12/23/23 12/30/23 12:03 11:45 Wound Care Center Nurse 3 7-LLE INFERIOR -Negative Pressure Wound Therapy Start -Setting (mmHg) 150 -Negative Pressure is Continuous -Other Dressing DAKINS MOISTENED GAUZE PACKED -Primary Dressing Covered/Secured with Dry Gauze,Dry Gauze & Roll Gauze,Secured with Tape -NPWT Application Charge NPWT & Debridement (nc ) 6-LLE MIDDLE ULCER -Ulcer Cleansing Rinsed/ Irrigated with Saline -Negative Pressure Wound Therapy Start -Setting (mmHg) 150 -Negative Pressure is Continuous -Other Dressing DAKINS MOISTENED GAUZE PACKED IN ULCER -Primary Dressing Covered/Secured with Dry Gauze,Dry Gauze & Roll Gauze,Secured with Tape -NPWT Application Charge NPWT - Multiple Locations #5 LLE SUPERIOR -Ulcer Cleansing Rinsed/ Irrigated with Saline -Primary Dressing Applied Fibracol Plus Mepilex Border 4x4,Hysept ($) -Primary Dressing Covered/Secured with Dry Gauze,Dry Gauze & Roll Gauze,Secured with Tape -Fibracol Plus 4x4 1 -Mepilex Border 1 Left -Compression Wrap Jori Wrap Pain Scale: 0-10 Numeric Is Patient Pain Free? Yes Yes Assessment/Plan Assessment/Plan (1) Non-pressure chronic ulcer of left calf with fat layer exposed: CODE(S): L97.222 - Non-pressure chronic ulcer of left calf with fat layer exposed PLAN: Patient was examined and evaluated. All findings were discussed with the patient. All questions were answered to the patient's satisfaction. Excisional debridement down to and including subcutaneous tissue with a number 5 mm dermal curette to the left superior ulceration without incident. Predebridement measurement is 2.4 x 3.9 x 0.1 cm. Postdebridement measurement is 2.5 x 4.0 x 0.1 cm. EpiFix mesh 4.0 x 4.5 cm was applied to the left superior full-thickness ulceration with 100% use. First application. The graft site was free and clear of any infection. The wound/skin graft substitute was dressed with nonadherent bandage secured in place with Steri-Strips followed by bolster dressing as well as a double layer Tubigrip. Excisional debridement down to and including subcutaneous tissue, fascia and muscle with a number 5 mm dermal curette to the left middle ulceration without incident. Predebridement measurement is 6.4 x 3.9 x 3.0 cm. Postdebridement measurement is 6.5 x 4.0 x 5.0 cm. Excisional debridement down to and including subcutaneous tissue fascia and muscle with a number 3 mm dermal curette to the left inferior ulceration of the incident. Predebridement measurement is 0.4 x 0.8 x 3.0 cm. Postdebridement measurement is 0.5 x 0.9 x 4.0 cm. Culture was taken of the inferior wound to rule out any deep tissue infection. Antibiotics will be prescribed if necessary. The left lower extremities were cleaned and patted dry. Negative pressure wound VAC was applied to the middle inferior ulcer at a setting of 150 mm per mercury a continuous setting. Patient will have home health care for every other day VAC changes. Educated the patient to increase her protein intake. Educated patient continue strict blood sugar control which she is understanding of. Educated the patient on smoking cessation. Follow-up at the wound care center with Dr. Maguire in 1 week. (2) Non-pressure chronic ulcer of left calf with muscle involvement without evidence of necrosis: CODE(S): L97.225 - Non-pressure chronic ulcer of left calf with muscle involvement without evidence of necrosis (3) Other specified peripheral vascular diseases: CODE(S): I73.89 - Other specified peripheral vascular diseases
--- NOTE | 2023-12-31 08:26 | WC ---
PHOTO 12/30/23 LLE SUP ULCER
--- NOTE | 2023-12-31 08:28 | WC ---
PHOTO 12/30/23 LLE MED ULCER
--- NOTE | 2023-12-31 08:32 | WC ---
PHOTO 12/30/23 LLE INF. ULCER
--- NOTE | 2024-01-06 17:02 | WC ---
Patient called letting us know she had no transport for wound visit today. She wanted to know what to do with the old epifix from last visit. Dr Maguire said to remove it and continue vac as ordered and daniel to smaller wound proximal wound. She verbalized understanding. Stated that is what they have been doing. Patient is scheduled next Weds am as long as her transport is available.
== END 2024-01-11 23:59 | disposition home or self-care (01) ==
LOC: WC 10:15
PROVIDERS: PCP Nurse Practitioner Family; Referring Provider Internal Medicine; Visit Provider Podiatrist
DX: E11.621 Type 2 diabetes mellitus with foot ulcer (principal); L97.222 Non-pressure chronic ulcer of left calf with fat layer exposed; E11.42 Type 2 diabetes mellitus with diabetic polyneuropathy; Z79.4 Long term (current) use of insulin; E11.51 Type 2 diabetes mellitus with diabetic peripheral angiopathy without gangrene; Z79.84 Long term (current) use of oral hypoglycemic drugs; Z79.899 Other long term (current) drug therapy; Z79.85 Long-term (current) use of injectable non-insulin antidiabetic drugs
CPT/HCPCS: 11042; 11043; 11046; 15271; 87070; 87075; 87077; 87186; 87205; Q4186

== ENCOUNTER 2024-01-27 10:02 | Outpatient (RCR) | payer MEDICAID, SELFPAY ==
[2024-01-12 00:19] VITALS: BP 165/92; PULSE 102; RESP 24; TEMP 35.7; BMI 61.4
--- NOTE | 2024-01-13 11:45 | WC ---
Notified patient that Dr Maguire will be calling in Doxycycline to her pharmacy based on her wound culture that was done on 12/29. Patient states she has not been on any antibiotics. She missed her appt again today due to no transportation. She is rescheduled for next and advised her that Dr Maguire is very concerned that she hasn't made any wound appts in a couple of weeks. She verbalizes understanding and has transport thru her insurance.
[2024-01-27 10:07] VITALS: BP 136/94; PULSE 96; RESP 18; TEMP 36.1; BMI 61.4
--- NOTE | 2024-01-27 11:29 | PN.PCM_ITS ---
History of Present Illness Date of Service: 01/27/24 Chief Complaint: Left History of Wound: Ms. Rosenberg is a 43-year-old diabetic female presenting to wound care center today for bilateral lower extremity ulcerations. Patient was referred to the wound care center from a doctor in [place]. She does see podiatry in [place]. Patient has evidence of left proximal and heel ulcerations as well as right foot ulceration secondary to peripheral neuropathy and diabetes. Patient is an uncontrolled diabetic with a blood sugar ranging from 300 mg/dL daily. Her A1c is 13%. Treatment has been with local wound care and oral antibiotics at this time. She does admit to trauma to the left proximal ulceration. Denies constitutional symptoms. No other pedal complaints at this time. Subjective Subjective Ms. Rosenberg is a 43-year-old diabetic female presenting to wound care center today for follow-up evaluation to left calf ulcerations. She has been getting wound VAC changes by home health care. She admits improvement to her wound. Bl ood sugar under control. She still smokes but is cutting back. She is continuing her dialysis routine. She is grateful for care. Denies trauma. Denies constitutional symptoms. No other pedal complaints at this time. Objective Data Objective Data Vital Signs: Vital Signs Temp Pulse Resp BP O2 Del Method 96.9 F L 96 18 136/94 H Room Air 01/27/24 10:07 01/27/24 10:07 01/27/24 10:07 01/27/24 10:07 01/27/24 10:07 Oxygen Delivery Method Room Air Weight: 162.502 kg Body Mass Index (BMI) 61.4 Physical Exam Narrative Vascular: DP and PT pulses are palpable. CFT is brisk. Blanchable erythema appreciated to the periwound of the left lower extremity. Neurological: Light touch intact. Patient response to painful stimuli. Protective station is diminished. Dermatological: Full-thickness ulceration to lateral aspect of the left lower extremity/ankle measuring 5.7 x 4.5 x 5.6 cm. Evidence of tunneling to the 3:00. Wound base is granular in nature. No malodor or drainage at this time. Excisional debridement down to and including subcutaneous tissue with a number 5 mm dermal curette to the left leg/ankle ulceration without incident. Predebridement measurement was 5.0 x 4.0 x 5.2 cm. Postdebridement measurement is 5.7 x 4.5 x 5.6 cm. EpiCord 2.0 x 2.5 cm graft was applied to the left leg/ankle full-thickness ulceration with 100% use. Second application. The graft site was free and clear of any infection. The wound/skin graft substitute was dressed with nonadherent bandage secured in place with Steri-Strips followed negative pressure wound VAC set to 150 mmHg. Musculoskeletal: Mild pain on palpation to the left inferior ulceration. No pain with calf pressure. Debridement Note Debridement Note Debridement Free Text: Excisional debridement down to and including subcutaneous tissue with a number 5 mm dermal curette to the left leg/ankle ulceration without incident. Predebridement measurement was 5.0 x 4.0 x 5.2 cm. Postdebridement measurement is 5.7 x 4.5 x 5.6 cm. EpiCord 2.0 x 2.5 cm graft was applied to the left leg/ankle full-thickness ulceration with 100% use. Second application. The graft site was free and clear of any infection. The wound/skin graft substitute was dressed with nonadherent bandage secured in place with Steri-Strips followed negative pressure wound VAC set to 150 mmHg. 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 ) Arrival Mode Wheelchair Patient Identification Verified (Name & Yes ) Patient Requires Transmission-Based No Precautions Height and Weight Body Mass Index (BMI) 61.4 BMI Classification Obese Vital Signs Temperature (97.8 F-99.1 F) 96.9 F L Temperature Source Temporal Pulse Rate (60-100) 96 Pulse Location Monitor Respiratory Rate (12-18) 18 Respiratory rate source Observation Oxygen Delivery Method Room Air Blood Pressure (90/60-120/80) 136/94 H Blood Pressure Mean (mm Hg) 108 Source Monitor Position Sitting Blood Pressure Location Left Arm History Since Last Visit- (Skip if this is Patient's initial visit) Have you changed medications since your No last visit? Any new allergies or adverse reactions No Had a fall/change in ADL's that may No increase risk of falls Signs or symptoms of abuse and/or No neglect since last visit Have you been in the hospital since your No last visit? Has dressing in place as prescribed Yes Has compression in place as prescribed Yes Has offloadiing in place as prescribed N/A Experienced any changes in pain level or No management Pain Scale: 0-10 Numeric Is Patient Pain Free? Yes WC - Nurse 1 - General Ulcer Measurement Start: 01/27/24 10:07 Freq: Status: Active Protocol: Activity Type Activity Date Activity User E-sign Co-sign Detail Recorded Client Recorded Date Recorded By Document 01/27/24 10:07 MARILY [id number] 01/27/24 10:20 KW 01/27/24 10:07 Wound Center Nurse 1 #8 LLE Anterior -Current Size (cm) - Length 0.5 -Current Size (cm) - Width 0.5 -Current Size (cm) - Depth 0.3 -Total Square Cm 0.25 -Date of Last Picture (Recall this 01/27/24 field) -Photo Taken Yes -Epithelialization None Present -Tunneling No -Undermining/Tunneling No -Circular Undermining No -Exudate Amt Medium -Wound Margin Distinct, Outline Attached -Granulation Amt Large (67-100%) -Granulation Quality [place] -Slough/Fibrin No -Texture (Carrie-wound Skin Appearance) Assessed -Moisture (Carrie-wound Skin Appearance) Assessed -Color (Carrie-wound Skin Appearance) Assessed -Temperature (Carrie-wound Skin No Abnormality Appearance) (Pt Warm) -Ulcer Cleansing Not Cleansed -Foul Odor after Cleansing No -Anesthetic Used 4% Lidocaine Solution 7-LLE INFERIOR -Current Size (cm) - Length 0.5 -Current Size (cm) - Width 0.8 -Current Size (cm) - Depth 1.0 -Total Square Cm 0.40 -Date of Last Picture (Recall this 01/27/24 field) -Photo Taken Yes -Epithelialization Small 1-33% -Tunneling Yes -Tunneling Position (O'clock) 3 -Tunneling Distance (cm) 1.6 -Undermining/Tunneling No -Circular Undermining Yes -Exudate Amt Medium -Exudate Type Yellow/Green -Wound Margin Thickened -Granulation Amt Large (67-100%) -Granulation Quality [place] -Slough/Fibrin No -Texture (Carrie-wound Skin Appearance) Assessed -Moisture (Carrie-wound Skin Appearance) Assessed -Color (Carrie-wound Skin Appearance) Assessed -Temperature (Carrie-wound Skin No Abnormality Appearance) (Pt Warm) -Ulcer Cleansing Soap and Water -Foul Odor after Cleansing No -Anesthetic Used 4% Lidocaine Solution #5 LLE SUPERIOR -Current Size (cm) - Length 0.1 -Current Size (cm) - Width 0.1 -Current Size (cm) - Depth 0.1 -Total Square Cm 0.01 -Date of Last Picture (Recall this 01/27/24 field) -Photo Taken Yes -Epithelialization Large 67-100% -Tunneling No -Undermining/Tunneling No -Circular Undermining No -Exudate Amt None Present -Granulation Amt Large (67-100%) -Texture (Carrie-wound Skin Appearance) Assessed -Moisture (Carrie-wound Skin Appearance) Assessed -Color (Carrie-wound Skin Appearance) Assessed -Temperature (Carrie-wound Skin No Abnormality Appearance) (Pt Warm) -Ulcer Cleansing Soap and Water -Foul Odor after Cleansing No 6-LLE Medial cluster -Current Size (cm) - Length 3.3 -Current Size (cm) - Width 1.0 -Current Size (cm) - Depth 0.3 -Total Square Cm 3.30 -Date of Last Picture (Recall this 01/27/24 field) -Photo Taken No -Epithelialization None Present -Tunneling Yes -Tunneling Position (O'clock) 3 -Tunneling Distance (cm) 2.0 -Undermining/Tunneling No -Circular Undermining No -Exudate Type Serosanguineous -Wound Margin Thickened & Rolled Under -Granulation Amt Large (67-100%) -Granulation Quality Red -Slough/Fibrin Yes -Necrosis Amt Medium (34-66%) -Texture (Carrie-wound Skin Appearance) Assessed -Moisture (Carrie-wound Skin Appearance) Assessed, Maceration -Color (Carrie-wound Skin Appearance) Assessed -Temperature (Carrie-wound Skin No Abnormality Appearance) (Pt Warm) -Ulcer Cleansing Soap and Water -Foul Odor after Cleansing No -Anesthetic Used 4% Lidocaine Solution WC - Nurse 2 - General Ulcer CM Notes Start: 01/27/24 10:07 Freq: Status: Active Protocol: Activity Type Activity Date Activity User E-sign Co-sign Detail Recorded Client Recorded Date Recorded By Document 01/27/24 10:35 NAJMA [id number] 01/27/24 10:40 NAJMA 01/27/24 10:35 Wound Center Nurse 2 -Time 10:37 -Correct Patient Yes -Correct Side, Site, Position Yes -Correct Procedure Yes -Procedure Performed Yes -Type of Procedure Debridement -Clinical Debridement Subcutaneous -Tissue Removed Subcutaneous -Post Debridement (cm) - Length 5.7 -Post Debridement (cm) - Width 4.5 -Post Debridement (cm) - Depth 5.6 -Total Square (Post) (cm) 25.65 -Area of Debridement (cm) - Length 5.7 -Area of Debridement (cm) - Width 4.5 -Total Square (Area) (cm) 25.65 -Tunneling No -Undermining/Tunneling No -Circular Undermining No -Wound/Ulcer Outcome Not Healed -Ulcer Cleansing Rinsed/ Irrigated with Saline -Foul Odor after Cleansing No -Bioengineered Tissue Yes -Type of Bioengineered Tissue Epicord -Expiration Date 06/11/28 -Product Lot Number [id number] -Percent Used 100 -Lot number of Saline Used [id number] -Bleeding Controlled with Pressure -Treatment Response Procedure Tolerated Well -Offloading No -Debridement - Subq, 1st 20sq cm No -Apply Skin Sub - 1st 25 sq cm - Legs 1 -Apply Skin Sub - each addt'l 25 sq cm 1 - Legs -Epicord (per sq cm) 6 Pain Scale: 0-10 Numeric Is Patient Pain Free? Yes - Nurse 3 - General Ulcer D/C NN Start: 01/27/24 10:07 Freq: Status: Active Protocol: Activity Type Activity Date Activity User E-sign Co-sign Detail Recorded Client Recorded Date Recorded By Document 01/27/24 10:54 FAUSTINO [id number] 01/27/24 10:56 01/27/24 10:54 Wound Care Center Nurse 3 6-LLE Medial cluster -Ulcer Cleansing wiped with dry gauze -Foul Odor after Cleansing No -NPWT Application Charge NPWT & Debridement (nc ) Left -Compression Wrap Jori Wrap Pain Scale: 0-10 Numeric Is Patient Pain Free? Yes WC - Visit Discharge Discharge Condition Stable Ambulatory Status Wheelchair Transportation Private Auto Assessment/Plan Assessment/Plan (1) Non-pressure chronic ulcer of left ankle with necrosis of muscle: CODE(S): L97.323 - Non-pressure chronic ulcer of left ankle with necrosis of muscle PLAN: Patient was examined and evaluated. All findings were discussed with the patient. All questions were answered to the patient's satisfaction. Excisional debridement down to and including subcutaneous tissue with a number 5 mm dermal curette to the left leg/ankle ulceration without incident. Predebridement measurement was 5.0 x 4.0 x 5.2 cm. Postdebridement measurement is 5.7 x 4.5 x 5.6 cm. EpiCord 2.0 x 2.5 cm graft was applied to the left leg/ankle full-thickness ulceration with 100% use. Second application. The graft site was free and clear of any infection. The wound/skin graft substitute was dressed with nonadherent bandage secured in place with Steri-Strips followed negative pressure wound VAC set to 150 mmHg. Patient will have home health care change her VAC 2 times per week and we will change it 1 time per week here at the wound care center. Educated the patient on strict blood sugar control. Educated the patient on smoking cessation. Follow-up at the wound care center with Dr. Maguire in 1 week.
--- NOTE | 2024-01-28 11:19 | WC ---
PHOTO 01/27/24 RONNIE
== END 2024-02-11 23:59 | disposition home or self-care (01) ==
LOC: WC 10:02
PROVIDERS: PCP Nurse Practitioner Family; Referring Provider Internal Medicine; Visit Provider Podiatrist
DX: E11.622 Type 2 diabetes mellitus with other skin ulcer (principal); L97.323 Non-pressure chronic ulcer of left ankle with necrosis of muscle; E11.42 Type 2 diabetes mellitus with diabetic polyneuropathy; Z79.4 Long term (current) use of insulin; F17.200 Nicotine dependence, unspecified, uncomplicated; Z79.899 Other long term (current) drug therapy
CPT/HCPCS: 15271; 15272; Q4187

== ENCOUNTER 2024-02-23 11:15 | Outpatient (RCR) | payer MEDICAID, SELFPAY ==
[2024-02-12 00:13] VITALS: BP 165/92; PULSE 102; RESP 24; TEMP 35.7; BMI 61.4
[2024-02-17 15:22] VITALS: BP 192/93; PULSE 91; RESP 18; TEMP 36.2; BMI 61.4
--- NOTE | 2024-02-17 17:00 | PCM.WC.PN ---
History of Present Illness Date of Service: 02/17/24 Chief Complaint: Left History of Wound: Ms. Rosenberg is a 43-year-old diabetic female presenting to wound care center today for bilateral lower extremity ulcerations. Patient was referred to the wound care center from a doctor in [place]. She does see podiatry in [place]. Patient has evidence of left proximal and heel ulcerations as well as right foot ulceration secondary to peripheral neuropathy and diabetes. Patient is an uncontrolled diabetic with a blood sugar ranging from 300 mg/dL daily. Her A1c is 13%. Treatment has been with local wound care and oral antibiotics at this time. She does admit to trauma to the left proximal ulceration. Denies constitutional symptoms. No other pedal complaints at this time. Progress of Wound: Patient has +4 pitting edema of her left leg. She states that she has not had dialysis for 2 weeks due to her insurance company cancelling her transportation. She states that she still does produce urine. Her left leg proximal ulcer is superficial and a nice beefy pink. The left leg ulcer cluster has two small areas that are becoming more difficult to pack and there is a tunnel connecting the larger ulcer to the lateral small ulcer. Objective Data Objective Data Vital Signs: Vital Signs Temp Pulse Resp BP O2 Del Method 97.1 F L 91 18 192/93 H Room Air 02/17/24 15:22 02/17/24 15:22 02/17/24 15:22 02/17/24 15:22 02/17/24 15:22 Oxygen Delivery Method Room Air Weight: 358 lb 4.078 oz Body Mass Index (BMI) 61.4 Charges/Coding Procedures Integumentary 111xxx-113xx: 04017 [place] subq tissue 20 sq cm/< Add On Codes: 58156 [place] subq tissue add-on Debridement Note Debridement Note Wound debrided: #8 left anterior leg ulcer cluster Laterality: Left Type of Debridement: Excisional debridement Anesthesia Used: 5% Lidocaine Gel Depth: Down to and including healthy tissue and in the subcutaneous layer Percentage of wound debrided: 100 Instrument Used: 3mm curette and 5mm curette Tissue Removed: Non viable tissue and slough Severity: Fat Layer Exposed Amount of bleeding with debridement: Mild Bleeding Controlled with: Compression and gauze Patient tolerated procedure: Patient tolerated procedure well Post-Debridement Measurements and Additional Note: Post-Debridement Measurements/Treatment WC - Nurse 1 - General Ulcer Assessment Start: 02/17/24 15:22 Freq: Status: Active Protocol: AIME Activity Type Activity Date Activity User E-sign Co-sign Detail Recorded Client Recorded Date Recorded By Document 02/17/24 15:22 KW [id number] 02/17/24 15:42 02/17/24 15:22 - Today's Visit Information Type of service 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 ) Arrival Mode Wheelchair Patient Identification Verified (Name & Yes ) Height and Weight Body Mass Index (BMI) 61.4 BMI Classification Obese Vital Signs Temperature (97.8 F-99.1 F) 97.1 F L Temperature Source Temporal Pulse Rate (60-100) 91 Pulse Location Monitor Respiratory Rate (12-18) 18 Respiratory rate source Observation Oxygen Delivery Method Room Air Blood Pressure (90/60-120/80) 192/93 H Blood Pressure Mean (mm Hg) 126 Source Monitor Position Semi-Fowlers Blood Pressure Location Left Forearm History Since Last Visit- (Skip if this is Patient's initial visit) Have you changed medications since your No last visit? Any new allergies or adverse reactions No Had a fall/change in ADL's that may No increase risk of falls Signs or symptoms of abuse and/or No neglect since last visit Have you been in the hospital since your No last visit? Has dressing in place as prescribed Yes Has compression in place as prescribed Yes Has offloadiing in place as prescribed N/A Experienced any changes in pain level or No management Left Footwear Regular Shoe Right Footwear Regular Shoe Pain Scale: 0-10 Numeric Is Patient Pain Free? Yes - Nurse 1 - General Ulcer Measurement Start: 02/17/24 15:22 Freq: Status: Active Protocol: Activity Type Activity Date Activity User E-sign Co-sign Detail Recorded Client Recorded Date Recorded By Document 02/17/24 15:22 KW [id number] 02/17/24 15:42 02/17/24 15:22 Wound Center Nurse 1 #9 L ARIADNA LE SUPERIOR -Current Size (cm) - Length 1 -Current Size (cm) - Width 1.3 -Current Size (cm) - Depth 0.1 -Total Square Cm 1.3 -Date of Last Picture (Recall this 02/17/24 field) -Exudate Amt Small -Exudate Type Serosanguineous -Wound Margin Distinct, Outline Attached -Granulation Amt Large (67-100%) -Granulation Quality Red -Texture (Carrie-wound Skin Appearance) Assessed -Moisture (Carrie-wound Skin Appearance) Assessed -Color (Carrie-wound Skin Appearance) Assessed -Temperature (Carrie-wound Skin No Abnormality Appearance) (Pt Warm) -Tenderness on Palpation (Carrie-wound No Skin Appearance) -Ulcer Cleansing Soap and Water -Foul Odor after Cleansing No -Anesthetic Used 4% Lidocaine Solution 6-LLE Medial cluster -Current Size (cm) - Length 6.8 -Current Size (cm) - Width 5 -Current Size (cm) - Depth 1.1 -Total Square Cm 34.0 -Date of Last Picture (Recall this 02/17/24 field) -Exudate Amt Small -Exudate Type Serosanguineous -Granulation Amt Large (67-100%) -Granulation Quality [place],Red -Necrosis Amt Small (1-33%) -Necrotic Tissue Type Adherent Slough -Texture (Carrie-wound Skin Appearance) Assessed -Moisture (Carrie-wound Skin Appearance) Assessed -Color (Carrie-wound Skin Appearance) Assessed -Temperature (Carrie-wound Skin No Abnormality Appearance) (Pt Warm) -Tenderness on Palpation (Carrie-wound No Skin Appearance) -Ulcer Cleansing Soap and Water -Foul Odor after Cleansing No -Anesthetic Used 4% Lidocaine Solution WC - Nurse 2 - General Ulcer CM Notes Start: 02/17/24 15:22 Freq: Status: Active Protocol: Activity Type Activity Date Activity User E-sign Co-sign Detail Recorded Client Recorded Date Recorded By Document 02/17/24 15:50 [id number] 02/17/24 16:00 GM 02/17/24 15:50 Wound Center Nurse 2 #9 L [facility] -Time 15:58 -Correct Patient Yes -Correct Side, Site, Position Yes -Correct Procedure Yes -Procedure Performed Yes -Type of Procedure Debridement -Clinical Debridement Subcutaneous -Tissue Removed Subcutaneous -Post Debridement (cm) - Length 1.0 -Post Debridement (cm) - Width 1.5 -Post Debridement (cm) - Depth 0.1 -Total Square (Post) (cm) 1.50 -Area of Debridement (cm) - Length 1.0 -Area of Debridement (cm) - Width 1.5 -Total Square (Area) (cm) 1.50 -Tunneling No -Undermining/Tunneling No -Circular Undermining No -Wound/Ulcer Outcome Not Healed -Ulcer Cleansing Rinsed/ Irrigated with Saline -Foul Odor after Cleansing No -Bioengineered Tissue No -Bleeding Controlled with Pressure -Treatment Response Procedure Tolerated Well -Debridement - Subq, 1st 20sq cm No 6-LLE Medial cluster -Time 15:59 -Correct Patient Yes -Correct Side, Site, Position Yes -Correct Procedure Yes -Procedure Performed Yes -Type of Procedure Debridement -Clinical Debridement Subcutaneous -Tissue Removed Subcutaneous -Post Debridement (cm) - Length 6.3 -Post Debridement (cm) - Width 4.5 -Post Debridement (cm) - Depth 1.0 -Total Square (Post) (cm) 28.35 -Area of Debridement (cm) - Length 6.3 -Area of Debridement (cm) - Width 4.5 -Total Square (Area) (cm) 28.35 -Tunneling Yes -Tunneling Position (O'clock) 5 -Tunneling Distance (cm) 2.2 -Undermining/Tunneling No -Circular Undermining No -Wound/Ulcer Outcome Not Healed -Ulcer Cleansing Rinsed/ Irrigated with Saline -Foul Odor after Cleansing No -Bioengineered Tissue No -Bleeding Controlled with Pressure -Treatment Response Procedure Tolerated Well -Debridement - Subq, 1st 20sq cm Yes -Debridement, SubQ, ea addt'l 20sq cm 1 or part thereof Pain Scale: 0-10 Numeric Is Patient Pain Free? Yes - Nurse 3 - General Ulcer D/C NN Start: 02/17/24 15:22 Freq: Status: Active Protocol: Activity Type Activity Date Activity User E-sign Co-sign Detail Recorded Client Recorded Date Recorded By Document 02/17/24 16:12 MARILY [id number] 02/17/24 16:13 MARILY 02/17/24 16:12 Wound Care Center Nurse 3 #9 L MED LE SUPERIOR -Primary Dressing Applied Promogran Valerie Matter -Primary Dressing Covered/Secured with Dry Gauze -Promogran Valerie Matter 1 6-LLE Medial cluster -Negative Pressure Wound Therapy Continue -Setting (mmHg) 150 -Negative Pressure is Continuous -NPWT Application Charge NPWT & Debridement (nc ) Left -Compression Wrap Jori Wrap Pain Scale: 0-10 Numeric Is Patient Pain Free? Yes - Visit Discharge Discharge Condition Stable Ambulatory Status Wheelchair Additional Wound Wound debrided: #5 left leg superior ulcer Laterality: Left Type of Debridement: Excisional debridement Anesthesia Used: 5% Lidocaine Gel Depth: Down to and including healthy tissue and in the subcutaneous layer Percentage of wound debrided: 100 Instrument Used: 5mm curette Tissue Removed: Non viable tissue and slough Severity: Fat Layer Exposed Amount of bleeding with debridement: Mild Bleeding Controlled with: Compression and gauze Patient tolerated procedure: Patient tolerated procedure well Assessment/Plan Assessment/Plan (1) Non-pressure chronic ulcer of left calf with fat layer exposed: CODE(S): L97.222 - Non-pressure chronic ulcer of left calf with fat layer exposed (2) History of end stage renal disease: CODE(S): Z87.448 - Personal history of other diseases of urinary system (3) History of diabetes mellitus: CODE(S): Z86.39 - Personal history of other endocrine, nutritional and metabolic disease PLAN: Plan Courtesy visit for Dr. Maguire. Patient has not been here recently due to transportation issues. She also has not had dialysis in 2 weeks. I expressed concern about her not being dialyzed and she stated that the dialysis center is working on trying to get her reliable transportation. Her left leg ulcer cluster is becoming difficult to pack due to the small size of 2 of the openings. Although the openings are small, there is still depth under the opening and a tunnel from the lateral opening to the larger ulcer. Unsure if able to pack the tunnel with foam with doing the wound VAC dressing. Holding off on the Epicord this week. To the proximal/superior ulcer will place Valerie daily covered with gauze or ABD. Will place wound VAC to the distal/inferior anterior leg ulcer cluster. Wound VAC will be placed 3 x per week at 150 mmHg. She is to follow up next week with Dr. Perez. Stressed importance of going to ED if develop difficulty breathing, decrease in urine output or not feeling well in general, since she has not been dialyzed in 2 weeks.
--- NOTE | 2024-02-18 11:14 | WC ---
PHOTO 02/17/24 [facility]
--- NOTE | 2024-02-18 11:14 | WC ---
PHOTO 02/17/24 LEFT ARIADNA SIFUENTES
[2024-02-23 11:34] VITALS: BP 191/99; PULSE 95; RESP 18; TEMP 35.9; BMI 61.4
--- NOTE | 2024-02-23 12:09 | PN.PCM_ITS ---
History of Present Illness Date of Service: 02/23/24 Chief Complaint: Left History of Wound: Ms. Rosenberg is a 43-year-old diabetic female presenting to wound care center today for bilateral lower extremity ulcerations. Patient was referred to the wound care center from a doctor in [place]. She does see podiatry in [place]. Patient has evidence of left proximal and heel ulcerations as well as right foot ulceration secondary to peripheral neuropathy and diabetes. Patient is an uncontrolled diabetic with a blood sugar ranging from 300 mg/dL daily. Her A1c is 13%. Treatment has been with local wound care and oral antibiotics at this time. She does admit to trauma to the left proximal ulceration. Denies constitutional symptoms. No other pedal complaints at this time. Progress of Wound: Patient has +4 pitting edema of her left leg. She states that she has not had dialysis for 2 weeks due to her insurance company cancelling her transportation. She states that she still does produce urine. Her left leg proximal ulcer is superficial and a nice beefy pink. The left leg ulcer cluster has two small areas that are becoming more difficult to pack and there is a tunnel connecting the larger ulcer to the lateral small ulcer. Objective Data Objective Data Vital Signs: Vital Signs Temp Pulse Resp BP O2 Del Method 96.6 F L 95 18 191/99 H Room Air 02/23/24 11:34 02/23/24 11:34 02/23/24 11:34 02/23/24 11:34 02/23/24 11:34 Oxygen Delivery Method Room Air Weight: 162.502 kg Body Mass Index (BMI) 61.4 Physical Exam Narrative Neurovascular status unchanged to left lower extremity. Significant edema to bilateral lower extremities secondary to lack of hemodialysis. Full-thickness wounds to medial leg x 4 the central 2 wounds are the deepest and communicate. These wounds are significantly decreased in size since my prior ev aluation. They will demonstrate clean granular bases with no undermining or deep probing. No acute signs of infection. Pre and postdebridement measurements documented nursing notes. Debridement Note Debridement Note Post-Debridement Measurements and Additional Note: Post-Debridement Measurements/Treatment WC - Nurse 1 - General Ulcer Assessment Start: 02/17/24 15:22 Freq: Status: Active Protocol: AIME Activity Type Activity Date Activity User E-sign Co-sign Detail Recorded Client Recorded Date Recorded By Document 02/17/24 15:22 KW [id number] 02/17/24 15:42 KW Document 02/23/24 11:34 KW [id number] 02/23/24 11:50 KW 02/17/24 02/23/24 15:22 11:34 - Today's Visit Information Type of service Follow-up Visit Follow-up Visit (Physician/CERTIFIED OPHTHALMIC MEDICAL TECHNICIAN (Physician/CERTIFIED OPHTHALMIC MEDICAL TECHNICIAN ) ) Arrival Mode Wheelchair Wheelchair Patient Identification Verified (Name & Yes Yes ) Height and Weight Body Mass Index (BMI) 61.4 61.4 BMI Classification Obese Obese Vital Signs Temperature (97.8 F-99.1 F) 97.1 F L 96.6 F L Temperature Source Temporal Temporal Pulse Rate (60-100) 91 95 Pulse Location Monitor Monitor Respiratory Rate (12-18) 18 18 Respiratory rate source Observation Observation Oxygen Delivery Method Room Air Room Air Blood Pressure (90/60-120/80) 192/93 H 191/99 H Blood Pressure Mean (mm Hg) 126 129 Source Monitor Monitor Position Semi-Fowlers Sitting Blood Pressure Location Left Forearm Right Forearm History Since Last Visit- (Skip if this is Patient's initial visit) Have you changed medications since your No No last visit? Any new allergies or adverse reactions No No Had a fall/change in ADL's that may No No increase risk of falls Signs or symptoms of abuse and/or No No neglect since last visit Have you been in the hospital since your No No last visit? Has dressing in place as prescribed Yes Yes Has compression in place as prescribed Yes Yes Has offloadiing in place as prescribed N/A No Experienced any changes in pain level or No No management Left Footwear Regular Shoe Right Footwear Regular Shoe Pain Scale: 0-10 Numeric Is Patient Pain Free? Yes Yes - Nurse 1 - General Ulcer Measurement Start: 02/17/24 15:22 Freq: Status: Active Protocol: Activity Type Activity Date Activity User E-sign Co-sign Detail Recorded Client Recorded Date Recorded By Document 02/17/24 15:22 KW [id number] 02/17/24 15:42 KW Document 02/23/24 11:34 KW [id number] 02/23/24 11:50 KW 02/17/24 02/23/24 15:22 11:34 Wound Center Nurse 1 #9 L MED LE SUPERIOR -Combined with other wound No -Current Size (cm) - Length 1 0.6 -Current Size (cm) - Width 1.3 1.2 -Current Size (cm) - Depth 0.1 0.1 -Total Square Cm 1.3 0.72 -Date of Last Picture (Recall this 02/17/24 field) -Tunneling No -Undermining/Tunneling No -Circular Undermining No -Exudate Amt Small Large -Exudate Type Serosanguineous Serosanguineous -Wound Margin Distinct, Thickened & Outline Rolled Under Attached -Granulation Amt Large (67-100%) Large (67-100%) -Granulation Quality [place] -Slough/Fibrin Yes -Necrosis Amt Small (1-33%) -Necrotic Tissue Type Adherent Slough -Structure Exposed N/A -Texture (Carrie-wound Skin Appearance) Assessed Assessed -Moisture (Carrie-wound Skin Appearance) Assessed Assessed -Color (Carrie-wound Skin Appearance) Assessed Assessed -Temperature (Carrie-wound Skin No Abnormality No Abnormality Appearance) (Pt Warm) (Pt Warm) -Tenderness on Palpation (Carrie-wound No No Skin Appearance) -Ulcer Cleansing Soap and Water Wound Cleanser -Foul Odor after Cleansing No No -Anesthetic Used 4% Lidocaine 4% Lidocaine Solution Solution 6-LLE Medial cluster -Combined with other wound No -Current Size (cm) - Length 6.8 3.3 -Current Size (cm) - Width 5 4 -Current Size (cm) - Depth 1.1 1.3 -Total Square Cm 34.0 13.2 -Date of Last Picture (Recall this 02/17/24 field) -Photo Taken No -Tunneling Yes -Tunneling Position (O'clock) 2 -Tunneling Distance (cm) 3 -Undermining/Tunneling No -Circular Undermining No -Exudate Amt Small Large -Exudate Type Serosanguineous Serosanguineous -Wound Margin Thickened & Rolled Under -Granulation Amt Large (67-100%) Large (67-100%) -Granulation Quality [place] -Slough/Fibrin Yes -Necrosis Amt Small (1-33%) Small (1-33%) -Necrotic Tissue Type Adherent Slough -Structure Exposed N/A -Texture (Carrie-wound Skin Appearance) Assessed Assessed -Moisture (Carrie-wound Skin Appearance) Assessed Assessed -Color (Carrie-wound Skin Appearance) Assessed Assessed -Temperature (Carrie-wound Skin No Abnormality No Abnormality Appearance) (Pt Warm) (Pt Warm) -Tenderness on Palpation (Carrie-wound No No Skin Appearance) -Ulcer Cleansing Soap and Water Wound Cleanser -Foul Odor after Cleansing No No -Anesthetic Used 4% Lidocaine 4% Lidocaine Solution Solution WC - Nurse 2 - General Ulcer CM Notes Start: 02/17/24 15:22 Freq: Status: Active Protocol: Activity Type Activity Date Activity User E-sign Co-sign Detail Recorded Client Recorded Date Recorded By Document 02/17/24 15:50 [id number] 02/17/24 16:00 Document 02/23/24 12:01 JF [id number] 02/23/24 12:04 02/17/24 02/23/24 15:50 12:01 Wound Center Nurse 2 #9 L ARIADNA SUPERIOR -Time 15:58 12:01 -Correct Patient Yes Yes -Correct Side, Site, Position Yes Yes -Correct Procedure Yes Yes -Procedure Performed Yes Yes -Type of Procedure Debridement Debridement -Clinical Debridement Subcutaneous Subcutaneous -Tissue Removed Subcutaneous Subcutaneous -Post Debridement (cm) - Length 1.0 0.6 -Post Debridement (cm) - Width 1.5 1.3 -Post Debridement (cm) - Depth 0.1 0.1 -Total Square (Post) (cm) 1.50 0.78 -Area of Debridement (cm) - Length 1.0 0.6 -Area of Debridement (cm) - Width 1.5 1.3 -Total Square (Area) (cm) 1.50 0.78 -Tunneling No No -Undermining/Tunneling No No -Circular Undermining No No -Wound/Ulcer Outcome Not Healed Not Healed -Ulcer Cleansing Rinsed/ Rinsed/ Irrigated with Irrigated with Saline Saline -Foul Odor after Cleansing No No -Bioengineered Tissue No No -Bleeding Controlled with Pressure Pressure -Treatment Response Procedure Procedure Tolerated Well Tolerated Well -Offloading No -Debridement - Subq, 1st 20sq cm No Yes 6-LLE Medial cluster -Time 15:59 12:03 -Correct Patient Yes Yes -Correct Side, Site, Position Yes Yes -Correct Procedure Yes Yes -Procedure Performed Yes Yes -Type of Procedure Debridement Debridement -Clinical Debridement Subcutaneous Subcutaneous -Tissue Removed Subcutaneous Subcutaneous -Post Debridement (cm) - Length 6.3 3.3 -Post Debridement (cm) - Width 4.5 4.1 -Post Debridement (cm) - Depth 1.0 1.3 -Total Square (Post) (cm) 28.35 13.53 -Area of Debridement (cm) - Length 6.3 3.3 -Area of Debridement (cm) - Width 4.5 4.1 -Total Square (Area) (cm) 28.35 13.53 -Tunneling Yes No -Tunneling Position (O'clock) 5 -Tunneling Distance (cm) 2.2 -Undermining/Tunneling No No -Circular Undermining No No -Wound/Ulcer Outcome Not Healed Not Healed -Ulcer Cleansing Rinsed/ Rinsed/ Irrigated with Irrigated with Saline Saline -Foul Odor after Cleansing No No -Bioengineered Tissue No No -Bleeding Controlled with Pressure Pressure -Treatment Response Procedure Procedure Tolerated Well Tolerated Well -Offloading No -Debridement - Subq, 1st 20sq cm Yes No -Debridement, SubQ, ea addt'l 20sq cm 1 or part thereof Pain Scale: 0-10 Numeric Is Patient Pain Free? Yes Yes - Nurse 3 - General Ulcer D/C NN Start: 02/17/24 15:22 Freq: Status: Active Protocol: Activity Type Activity Date Activity User E-sign Co-sign Detail Recorded Client Recorded Date Recorded By Document 02/17/24 16:12 MARILY [id number] 02/17/24 16:13 02/17/24 16:12 Wound Care Center Nurse 3 #9 L MED LE SUPERIOR -Primary Dressing Applied Promogran Valerie Matter -Primary Dressing Covered/Secured with Dry Gauze -Promogran Valerie Matter 1 6-LLE Medial cluster -Negative Pressure Wound Therapy Continue -Setting (mmHg) 150 -Negative Pressure is Continuous -NPWT Application Charge NPWT & Debridement (nc ) Left -Compression Wrap Jori Wrap Pain Scale: 0-10 Numeric Is Patient Pain Free? Yes - Visit Discharge Discharge Condition Stable Ambulatory Status Wheelchair Assessment/Plan Assessment/Plan (1) Non-pressure chronic ulcer of left calf with fat layer exposed: CODE(S): L97.222 - Non-pressure chronic ulcer of left calf with fat layer exposed PLAN: Exam performed. Left leg ulceration not infected significantly improved from previous evaluation. Poorly controlled edema due to lack of hemodialysis. Patient has social issues preventing her from getting dialysis regularly. Patient is working on this. Left leg ulceration excisionally debrided down to including level of subc utaneous tissue of all nonviable tissue using a 5 mm dermal curette. Patient tolerated procedure well. Pre and postdebridement measurements documented nursing notes. Hemostasis obtained with light compression. Topical anesthesia used. Plan for continued wound VAC to left lower extremity along with Jori bandage. Patient follow-up weekly.
== END 2024-03-12 23:59 | disposition home or self-care (01) ==
LOC: WC 11:15
PROVIDERS: PCP Nurse Practitioner Family; Referring Provider Internal Medicine; Visit Provider Podiatrist
DX: E11.622 Type 2 diabetes mellitus with other skin ulcer (principal); N18.6 End stage renal disease; L97.822 Non-pressure chronic ulcer of other part of left lower leg with fat layer exposed; E11.42 Type 2 diabetes mellitus with diabetic polyneuropathy; E11.22 Type 2 diabetes mellitus with diabetic chronic kidney disease; Z79.4 Long term (current) use of insulin; R60.0 Localized edema; Z79.899 Other long term (current) drug therapy
CPT/HCPCS: 11042; 11045

== ENCOUNTER 2024-03-29 10:00 | Outpatient (RCR) | payer MEDICAID, SELFPAY ==
[2024-03-13 00:40] VITALS: BP 165/92; PULSE 102; RESP 24; TEMP 35.7; BMI 61.4
[2024-03-15 10:26] VITALS: BP 193/84; PULSE 88; RESP 18; TEMP 35.9; BMI 61.4
--- NOTE | 2024-03-15 10:50 | PCM.WC.PN ---
History of Present Illness Date of Service: 03/15/24 Chief Complaint: Left History of Wound: Ms. Rosenberg is a 43-year-old diabetic female presenting to wound care center today for bilateral lower extremity ulcerations. Patient was referred to the wound care center from a doctor in [place]. She does see podiatry in [place]. Patient has evidence of left proximal and heel ulcerations as well as right foot ulceration secondary to peripheral neuropathy and diabetes. Patient is an uncontrolled diabetic with a blood sugar ranging from 300 mg/dL daily. Her A1c is 13%. Treatment has been with local wound care and oral antibiotics at this time. She does admit to trauma to the left proximal ulceration. Denies constitutional symptoms. No other pedal complaints at this time. Objective Data Objective Data Vital Signs: Vital Signs Temp Pulse Resp BP 96.7 F L 88 18 193/84 H 03/15/24 10:26 03/15/24 10:26 03/15/24 10:26 03/15/24 10:26 Weight: 162.502 kg Body Mass Index (BMI) 61.4 Physical Exam Narrative Neurovascular status unchanged to left lower extremity. Significant edema to bilateral lower extremities secondary to lack of hemodialysis. Full-thickness wounds to medial leg x 4 the central 2 wounds are the deepest and communicate. These wounds are significantly decreased in size since my prior evaluation. They will demonstrate clean granular bases with no undermining or deep probing. No acute signs of infection. Pre and postdebridement measurements documented nursing notes. Debridement Note Debridement Note Post-Debridement Measurements and Additional Note: Post-Debridement Measurements/Treatment - Nurse 1 - General Ulcer Assessment Start: 03/15/24 10:26 Freq: Status: Active Protocol: AIME Activity Type Activity Date Activity User E-sign Co-sign Detail Recorded Client Recorded Date Recorded By Document 03/15/24 10:26 ANGEL [id number] 03/15/24 10:34 RB 03/15/24 10:26 - Today's Visit Information Type of service Follow-up Visit (Physician/BEATER OPERATOR ) Arrival Mode Wheelchair Transfer Assistance Manual Patient Identification Verified (Name & Yes ) Patient Requires Transmission-Based No Precautions Height and Weight Body Mass Index (BMI) 61.4 BMI Classification Obese Vital Signs Temperature (97.8 F-99.1 F) 96.7 F L Temperature Source Temporal Pulse Rate (60-100) 88 Pulse Location Monitor Respiratory Rate (12-18) 18 Respiratory rate source Observation Blood Pressure (90/60-120/80) 193/84 H Blood Pressure Mean (mm Hg) 120 Source Monitor Position Semi-Fowlers Blood Pressure Location Left Arm History Since Last Visit- (Skip if this is Patient's initial visit) Have you changed medications since your No last visit? Any new allergies or adverse reactions No Had a fall/change in ADL's that may No increase risk of falls Signs or symptoms of abuse and/or No neglect since last visit Have you been in the hospital since your No last visit? Has dressing in place as prescribed Yes Has compression in place as prescribed Yes Has offloadiing in place as prescribed No Experienced any changes in pain level or No management Pain Scale: 0-10 Numeric Is Patient Pain Free? Yes WC - Nurse 1 - General Ulcer Measurement Start: 03/15/24 10:26 Freq: Status: Active Protocol: Activity Type Activity Date Activity User E-sign Co-sign Detail Recorded Client Recorded Date Recorded By Document 03/15/24 10:26 ANGEL [id number] 03/15/24 10:34 ANGEL 03/15/24 10:26 Wound Center Nurse 1 #9 L MED LE SUPERIOR -Combined with other wound No -Current Size (cm) - Length 2 -Current Size (cm) - Width 1 -Current Size (cm) - Depth 0.1 -Total Square Cm 2 -Tunneling No -Undermining/Tunneling No -Circular Undermining No -Exudate Amt Medium -Exudate Type Serosanguineous -Wound Margin Distinct, Outline Attached -Granulation Amt Medium (34-66%) -Granulation Quality [place] -Slough/Fibrin Yes -Necrosis Amt Small (1-33%) -Necrotic Tissue Type Adherent Slough -Structure Exposed N/A -Texture (Carrie-wound Skin Appearance) Assessed -Moisture (Carrie-wound Skin Appearance) Assessed -Color (Carrie-wound Skin Appearance) Assessed -Temperature (Carrie-wound Skin No Abnormality Appearance) (Pt Warm) -Tenderness on Palpation (Carrie-wound No Skin Appearance) -Ulcer Cleansing Wound Cleanser -Foul Odor after Cleansing No -Anesthetic Used 5% Lidocaine Gel 6-LLE Medial leg -Combined with other wound No -Current Size (cm) - Length 4.5 -Current Size (cm) - Width 4 -Current Size (cm) - Depth 1.2 -Total Square Cm 18.0 -Circular Undermining No -Exudate Amt Large -Exudate Type Serosanguineous -Wound Margin Thickened & Rolled Under -Granulation Amt Large (67-100%) -Granulation Quality [place] -Slough/Fibrin Yes -Necrosis Amt Medium (34-66%) -Necrotic Tissue Type Adherent Slough -Structure Exposed N/A -Texture (Carrie-wound Skin Appearance) Assessed, Localized Edema -Moisture (Carrie-wound Skin Appearance) Assessed -Color (Carrie-wound Skin Appearance) Assessed -Temperature (Carrie-wound Skin No Abnormality Appearance) (Pt Warm) -Tenderness on Palpation (Carrie-wound No Skin Appearance) -Ulcer Cleansing Wound Cleanser -Foul Odor after Cleansing No -Anesthetic Used 5% Lidocaine Gel Lower Limb Edema Present Yes Left Calf (cm) 69 Left Ankle (cm) 39 WC - Nurse 2 - General Ulcer CM Notes Start: 03/15/24 10:26 Freq: Status: Active Protocol: Activity Type Activity Date Activity User E-sign Co-sign Detail Recorded Client Recorded Date Recorded By Document 03/15/24 10:41 NAJMA [id number] 03/15/24 10:48 NAJMA 03/15/24 10:41 Wound Center Nurse 2 11-left lower leg -Time 10:46 -Correct Patient Yes -Correct Side, Site, Position Yes -Correct Procedure Yes -Procedure Performed Yes -Type of Procedure Debridement -Clinical Debridement Subcutaneous -Tissue Removed Subcutaneous -Post Debridement (cm) - Length 0.8 -Post Debridement (cm) - Width 0.4 -Post Debridement (cm) - Depth 4.5 -Total Square (Post) (cm) 0.32 -Area of Debridement (cm) - Length 0.8 -Area of Debridement (cm) - Width 0.4 -Total Square (Area) (cm) 0.32 -Tunneling No -Undermining/Tunneling No -Circular Undermining No -Wound/Ulcer Outcome Not Healed -Ulcer Cleansing Rinsed/ Irrigated with Saline -Foul Odor after Cleansing No -Bioengineered Tissue No -Bleeding Controlled with Pressure -Treatment Response Procedure Tolerated Well -Offloading No -Debridement - Subq, 1st 20sq cm Yes 10--left medial prabhakar -Time 10:45 -Correct Patient Yes -Correct Side, Site, Position Yes -Correct Procedure Yes -Procedure Performed Yes -Type of Procedure Debridement -Clinical Debridement Subcutaneous -Tissue Removed Subcutaneous -Post Debridement (cm) - Length 2.5 -Post Debridement (cm) - Width 1.5 -Post Debridement (cm) - Depth 1.0 -Total Square (Post) (cm) 3.75 -Area of Debridement (cm) - Length 2.5 -Area of Debridement (cm) - Width 1.5 -Total Square (Area) (cm) 3.75 -Tunneling No -Undermining/Tunneling No -Circular Undermining No -Wound/Ulcer Outcome Not Healed -Ulcer Cleansing Rinsed/ Irrigated with Saline -Foul Odor after Cleansing No -Bioengineered Tissue No -Bleeding Controlled with Pressure -Treatment Response Procedure Tolerated Well -Offloading No -Debridement - Subq, 1st 20sq cm No #9 L MED LE SUPERIOR -Time 10:43 -Correct Patient Yes -Correct Side, Site, Position Yes -Correct Procedure Yes -Procedure Performed Yes -Type of Procedure Debridement -Clinical Debridement Subcutaneous -Tissue Removed Subcutaneous -Post Debridement (cm) - Length 2.5 -Post Debridement (cm) - Width 1 -Post Debridement (cm) - Depth 0.1 -Total Square (Post) (cm) 2.5 -Area of Debridement (cm) - Length 2.5 -Area of Debridement (cm) - Width 1 -Total Square (Area) (cm) 2.5 -Tunneling No -Undermining/Tunneling No -Circular Undermining No -Wound/Ulcer Outcome Not Healed -Ulcer Cleansing Rinsed/ Irrigated with Saline -Foul Odor after Cleansing No -Bioengineered Tissue No -Bleeding Controlled with Pressure -Treatment Response Procedure Tolerated Well -Offloading No -Debridement - Subq, 1st 20sq cm No 6-LLE Medial leg -Time 10:44 -Correct Patient Yes -Correct Side, Site, Position Yes -Correct Procedure Yes -Procedure Performed Yes -Type of Procedure Debridement -Tissue Removed Epidermis, Subcutaneous -Post Debridement (cm) - Length 2.5 -Post Debridement (cm) - Width 1.5 -Post Debridement (cm) - Depth 1.0 -Total Square (Post) (cm) 3.75 -Area of Debridement (cm) - Length 2.5 -Area of Debridement (cm) - Width 1.5 -Total Square (Area) (cm) 3.75 -Tunneling No -Undermining/Tunneling No -Circular Undermining No -Wound/Ulcer Outcome Not Healed -Ulcer Cleansing Rinsed/ Irrigated with Saline -Foul Odor after Cleansing No -Bioengineered Tissue No -Bleeding Controlled with Pressure -Treatment Response Procedure Tolerated Well -Offloading No -Debridement - Subq, 1st 20sq cm No Pain Scale: 0-10 Numeric Is Patient Pain Free? Yes Assessment/Plan Assessment/Plan (1) Non-pressure chronic ulcer of left calf with fat layer exposed: CODE(S): L97.222 - Non-pressure chronic ulcer of left calf with fat layer exposed PLAN: Exam performed. Wounds improved today. Poorly controlled edema due to lack of hemodialysis patient has since restarted Left leg ulceration excisionally debrided down to including level of subcutaneous tissue of all nonviable tissue using a 5 mm dermal curette. Patient tolerated procedure well. Pre and postdebridement measurements documented nursing notes. Hemostasis obtained with light compression. Topical anesthesia used. Plan for daily wound packing to the deep probing inferior wound sites followed by Valerie to the more simple superficial wound sites dressed with an overlying dry sterile dressing and Jori bandage Patient reported that home health care had not been wrapping her leg with compression as it had been digging in. Patient follow-up weekly.
[2024-03-29 10:25] VITALS: BP 194/81; PULSE 66; RESP 18; TEMP 35.5; BMI 61.4
--- NOTE | 2024-03-29 10:47 | PN.PCM_ITS ---
History of Present Illness Date of Service: 03/29/24 Chief Complaint: Left History of Wound: Ms. Rosenberg is a 43-year-old diabetic female presenting to wound care center today for bilateral lower extremity ulcerations. Patient was referred to the wound care center from a doctor in [place]. She does see podiatry in [place]. Patient has evidence of left proximal and heel ulcerations as well as right foot ulceration secondary to peripheral neuropathy and diabetes. Patient is an uncontrolled diabetic with a blood sugar ranging from 300 mg/dL daily. Her A1c is 13%. Treatment has been with local wound care and oral antibiotics at this time. She does admit to trauma to the left proximal ulceration. Denies constitutional symptoms. No other pedal complaints at this time. Objective Data Objective Data Vital Signs: Vital Signs Temp Pulse Resp BP 96 F L 66 18 194/81 H 03/29/24 10:25 03/29/24 10:25 03/29/24 10:25 03/29/24 10:25 Weight: 162.502 kg Body Mass Index (BMI) 61.4 Physical Exam Narrative Neurovascular status unchanged to left lower extremity. Significant edema to bilateral lower extremities secondary to lack of hemodialysis. Full-thickness wounds to medial leg x 4 the central 2 wounds are the deepest and communicate. These wounds are significantly decreased in size since my prior evaluation. They will demonstrate clean granular bases with no undermining or deep probing. No acute signs of infection. Pre and postdebridement measurements documented nursing notes. 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 (Physician/PRESCRIPTION EYEGLASS MAKER ) ) Arrival Mode Wheelchair Ambulatory Transfer Assistance Manual None Patient Identification Verified (Name & Yes Yes ) Patient Requires Transmission-Based No No Precautions Height and Weight Body Mass Index (BMI) 61.4 61.4 BMI Classification Obese Obese Vital Signs Temperature (97.8 F-99.1 F) 96.7 F L 96 F L Temperature Source Temporal Temporal Pulse Rate (60-100) 88 66 Pulse Location Monitor Monitor Respiratory Rate (12-18) 18 18 Respiratory rate source Observation Observation Blood Pressure (90/60-120/80) 193/84 H 194/81 H Blood Pressure Mean (mm Hg) 120 118 Source Monitor Monitor Position Semi-Fowlers Semi-Fowlers Blood Pressure Location Left Arm Left Arm History Since Last Visit- (Skip if this is Patient's initial visit) Have you changed medications since your No No last visit? Any new allergies or adverse reactions No No Had a fall/change in ADL's that may No No increase risk of falls Signs or symptoms of abuse and/or No No neglect since last visit Have you been in the hospital since your No No last visit? Has dressing in place as prescribed Yes Yes Has compression in place as prescribed Yes Yes Has offloadiing in place as prescribed No No Experienced any changes in pain level or No No management Pain Scale: 0-10 Numeric Is Patient Pain Free? Yes Yes WC - Nurse 1 - General Ulcer Measurement Start: 03/15/24 10:26 Freq: Status: Active Protocol: Activity Type Activity Date Activity User E-sign Co-sign Detail Recorded Client Recorded Date Recorded By Document 03/15/24 10:26 RB [id number] 03/15/24 10:34 RB Document 03/29/24 10:25 RB [id number] 03/29/24 10:38 RB 03/15/24 03/29/24 10:26 10:25 Wound Center Nurse 1 11-left lower leg -Combined with other wound No -Current Size (cm) - Length 0.2 -Current Size (cm) - Width 0.6 -Current Size (cm) - Depth 5.5 -Total Square Cm 0.12 -Photo Taken Yes -Tunneling No -Undermining/Tunneling No -Circular Undermining No -Exudate Amt Medium -Exudate Type Serosanguineous -Wound Margin Distinct, Outline Attached -Granulation Amt Medium (34-66%) -Granulation Quality [place] -Slough/Fibrin Yes -Necrosis Amt Medium (34-66%) -Necrotic Tissue Type Adherent Slough -Structure Exposed N/A -Texture (Carrie-wound Skin Appearance) Assessed -Moisture (Carrie-wound Skin Appearance) Assessed -Color (Carrie-wound Skin Appearance) Assessed -Temperature (Carrie-wound Skin No Abnormality Appearance) (Pt Warm) -Tenderness on Palpation (Carrie-wound No Skin Appearance) -Ulcer Cleansing Wound Cleanser -Foul Odor after Cleansing No -Anesthetic Used 5% Lidocaine Gel 10--left medial prabhakar -Combined with other wound No -Current Size (cm) - Length 0.1 -Current Size (cm) - Width 0.1 -Current Size (cm) - Depth 0.1 -Total Square Cm 0.01 -Epithelialization Large 67-100% #9 L MED LE SUPERIOR -Combined with other wound No No -Current Size (cm) - Length 2 0.2 -Current Size (cm) - Width 1 0.5 -Current Size (cm) - Depth 0.1 1 -Total Square Cm 2 0.10 -Photo Taken Yes -Tunneling No No -Undermining/Tunneling No No -Circular Undermining No No -Exudate Amt Medium Medium -Exudate Type Serosanguineous Serosanguineous -Wound Margin Distinct, Distinct, Outline Outline Attached Attached -Granulation Amt Medium (34-66%) Medium (34-66%) -Granulation Quality [place] -Slough/Fibrin Yes Yes -Necrosis Amt Small (1-33%) Medium (34-66%) -Necrotic Tissue Type Adherent Slough Adherent Slough -Structure Exposed N/A N/A -Texture (Carrie-wound Skin Appearance) Assessed Assessed -Moisture (Carrie-wound Skin Appearance) Assessed Assessed -Color (Carrie-wound Skin Appearance) Assessed Assessed -Temperature (Carrie-wound Skin No Abnormality No Abnormality Appearance) (Pt Warm) (Pt Warm) -Tenderness on Palpation (Carrie-wound No No Skin Appearance) -Ulcer Cleansing Wound Cleanser Wound Cleanser -Foul Odor after Cleansing No No -Anesthetic Used 5% Lidocaine 5% Lidocaine Gel Gel 6-LLE Medial leg -Combined with other wound No No -Current Size (cm) - Length 4.5 1.4 -Current Size (cm) - Width 4 1.4 -Current Size (cm) - Depth 1.2 1 -Total Square Cm 18.0 1.96 -Photo Taken Yes -Tunneling No -Undermining/Tunneling No -Circular Undermining No No -Exudate Amt Large Medium -Exudate Type Serosanguineous Serosanguineous -Wound Margin Thickened & Distinct, Rolled Under Outline Attached -Granulation Amt Large (67-100%) Medium (34-66%) -Granulation Quality [place] -Slough/Fibrin Yes Yes -Necrosis Amt Medium (34-66%) Medium (34-66%) -Necrotic Tissue Type Adherent Slough Adherent Slough -Structure Exposed N/A N/A -Texture (Carrie-wound Skin Appearance) Assessed, Assessed Localized Edema -Moisture (Carrie-wound Skin Appearance) Assessed Assessed -Color (Carrie-wound Skin Appearance) Assessed Assessed -Temperature (Carrie-wound Skin No Abnormality No Abnormality Appearance) (Pt Warm) (Pt Warm) -Tenderness on Palpation (Carrie-wound No No Skin Appearance) -Ulcer Cleansing Wound Cleanser Wound Cleanser -Foul Odor after Cleansing No No -Anesthetic Used 5% Lidocaine 5% Lidocaine Gel Gel Lower Limb Edema Present Yes Yes Left Calf (cm) 69 66 Left Ankle (cm) 39 37 WC - Nurse 2 - General Ulcer CM Notes Start: 03/15/24 10:26 Freq: Status: Active Protocol: Activity Type Activity Date Activity User E-sign Co-sign Detail Recorded Client Recorded Date Recorded By Document 03/15/24 10:41 [id number] 03/15/24 10:48 NAJMA 03/15/24 10:41 Wound Center Nurse 2 11-left lower leg -Time 10:46 -Correct Patient Yes -Correct Side, Site, Position Yes -Correct Procedure Yes -Procedure Performed Yes -Type of Procedure Debridement -Clinical Debridement Subcutaneous -Tissue Removed Subcutaneous -Post Debridement (cm) - Length 0.8 -Post Debridement (cm) - Width 0.4 -Post Debridement (cm) - Depth 4.5 -Total Square (Post) (cm) 0.32 -Area of Debridement (cm) - Length 0.8 -Area of Debridement (cm) - Width 0.4 -Total Square (Area) (cm) 0.32 -Tunneling No -Undermining/Tunneling No -Circular Undermining No -Wound/Ulcer Outcome Not Healed -Ulcer Cleansing Rinsed/ Irrigated with Saline -Foul Odor after Cleansing No -Bioengineered Tissue No -Bleeding Controlled with Pressure -Treatment Response Procedure Tolerated Well -Offloading No -Debridement - Subq, 1st 20sq cm Yes 10--left medial prabhakar -Time 10:45 -Correct Patient Yes -Correct Side, Site, Position Yes -Correct Procedure Yes -Procedure Performed Yes -Type of Procedure Debridement -Clinical Debridement Subcutaneous -Tissue Removed Subcutaneous -Post Debridement (cm) - Length 2.5 -Post Debridement (cm) - Width 1.5 -Post Debridement (cm) - Depth 1.0 -Total Square (Post) (cm) 3.75 -Area of Debridement (cm) - Length 2.5 -Area of Debridement (cm) - Width 1.5 -Total Square (Area) (cm) 3.75 -Tunneling No -Undermining/Tunneling No -Circular Undermining No -Wound/Ulcer Outcome Not Healed -Ulcer Cleansing Rinsed/ Irrigated with Saline -Foul Odor after Cleansing No -Bioengineered Tissue No -Bleeding Controlled with Pressure -Treatment Response Procedure Tolerated Well -Offloading No -Debridement - Subq, 1st 20sq cm No #9 L MED LE SUPERIOR -Time 10:43 -Correct Patient Yes -Correct Side, Site, Position Yes -Correct Procedure Yes -Procedure Performed Yes -Type of Procedure Debridement -Clinical Debridement Subcutaneous -Tissue Removed Subcutaneous -Post Debridement (cm) - Length 2.5 -Post Debridement (cm) - Width 1 -Post Debridement (cm) - Depth 0.1 -Total Square (Post) (cm) 2.5 -Area of Debridement (cm) - Length 2.5 -Area of Debridement (cm) - Width 1 -Total Square (Area) (cm) 2.5 -Tunneling No -Undermining/Tunneling No -Circular Undermining No -Wound/Ulcer Outcome Not Healed -Ulcer Cleansing Rinsed/ Irrigated with Saline -Foul Odor after Cleansing No -Bioengineered Tissue No -Bleeding Controlled with Pressure -Treatment Response Procedure Tolerated Well -Offloading No -Debridement - Subq, 1st 20sq cm No 6-LLE Medial leg -Time 10:44 -Correct Patient Yes -Correct Side, Site, Position Yes -Correct Procedure Yes -Procedure Performed Yes -Type of Procedure Debridement -Tissue Removed Epidermis, Subcutaneous -Post Debridement (cm) - Length 2.5 -Post Debridement (cm) - Width 1.5 -Post Debridement (cm) - Depth 1.0 -Total Square (Post) (cm) 3.75 -Area of Debridement (cm) - Length 2.5 -Area of Debridement (cm) - Width 1.5 -Total Square (Area) (cm) 3.75 -Tunneling No -Undermining/Tunneling No -Circular Undermining No -Wound/Ulcer Outcome Not Healed -Ulcer Cleansing Rinsed/ Irrigated with Saline -Foul Odor after Cleansing No -Bioengineered Tissue No -Bleeding Controlled with Pressure -Treatment Response Procedure Tolerated Well -Offloading No -Debridement - Subq, 1st 20sq cm No Pain Scale: 0-10 Numeric Is Patient Pain Free? Yes - Nurse 3 - General Ulcer D/C NN Start: 03/15/24 10:26 Freq: Status: Active Protocol: Activity Type Activity Date Activity User E-sign Co-sign Detail Recorded Client Recorded Date Recorded By Document 03/15/24 10:55 MARILY [id number] 03/15/24 11:01 03/15/24 10:55 Wound Care Center Nurse 3 11-left lower leg -Primary Dressing Applied Nugauze, Iodoform 1/4in -Primary Dressing Covered/Secured with Dry Gauze & Roll Gauze, Secured with Tape -Nugauze, Iodoform 1/4in 1 10--left medial prabhakar -Other Dressing iodoform 1/4 packed #9 L MED LE SUPERIOR -Primary Dressing Applied Promogran Daniel Matter -Primary Dressing Covered/Secured with Dry Gauze & Roll Gauze, Secured with Tape -Promogran Daniel Matter 1 6-LLE Medial leg -Other Dressing daniel Left -Compression Wrap Jori Wrap Pain Scale: 0-10 Numeric Is Patient Pain Free? Yes - Visit Discharge Discharge Condition Stable Ambulatory Status Wheelchair Medication Reconcilliation completed & No provided to patient/care provider Clinical Summary of Care Provided Yes Assessment/Plan Assessment/Plan (1) Non-pressure chronic ulcer of left calf with fat layer exposed: CODE(S): L97.222 - Non-pressure chronic ulcer of left calf with fat layer exposed PLAN: Exam performed. Wounds improved today. Poorly controlled edema due to lack of hemodialysis patient has since restarted Left leg ulceration excisionally debrided down to including level of alvarez bcutaneous tissue of all nonviable tissue using a 5 mm dermal curette. Patient tolerated procedure well. Pre and postdebridement measurements documented nursing notes. Hemostasis obtained with light compression. Topical anesthesia used. Plan for daily wound packing to the deep probing inferior wound sites followed by Daniel to the more simple superficial wound sites dressed with an overlying dry sterile dressing and Jori bandage Patient reported that home health care had not been wrapping her leg with compression as it had been digging in. Patient follow-up weekly.
--- NOTE | 2024-03-30 13:57 | WC ---
PHOTO 03/29/24 LEFT SUPERIOR LEG/LEFT MED LEG/LLE
== END 2024-04-12 23:59 | disposition home or self-care (01) ==
LOC: WC 10:00
PROVIDERS: PCP Nurse Practitioner Family; Referring Provider Internal Medicine; Visit Provider Podiatrist
DX: E11.622 Type 2 diabetes mellitus with other skin ulcer (principal); L97.822 Non-pressure chronic ulcer of other part of left lower leg with fat layer exposed; E11.42 Type 2 diabetes mellitus with diabetic polyneuropathy; Z79.4 Long term (current) use of insulin; Z79.899 Other long term (current) drug therapy
CPT/HCPCS: 11042; 87070; 87075; 87077; 87186; 87205

== ENCOUNTER 2024-05-03 09:50 | Outpatient (RCR) | payer MEDICAID, SELFPAY ==
[2024-04-13 00:22] VITALS: BP 165/92; PULSE 102; RESP 24; TEMP 35.7; BMI 61.4
[2024-05-03 10:04] VITALS: RESP 18; TEMP 35.9; BMI 61.4
--- NOTE | 2024-05-03 11:03 | PCM.WC.PN ---
History of Present Illness Date of Service: 05/03/24 Chief Complaint: Left History of Wound: Ms. Rosenberg is a 43-year-old diabetic female presenting to wound care center today for bilateral lower extremity ulcerations. Patient was referred to the wound care center from a doctor in [place]. She does see podiatry in [place]. Patient has evidence of left proximal and heel ulcerations as well as right foot ulceration secondary to peripheral neuropathy and diabetes. Patient is an uncontrolled diabetic with a blood sugar ranging from 300 mg/dL daily. Her A1c is 13%. Treatment has been with local wound care and oral antibiotics at this time. She does admit to trauma to the left proximal ulceration. Denies constitutional symptoms. No other pedal complaints at this time. Objective Data Objective Data Vital Signs: Vital Signs Temp Pulse Resp BP O2 Del Method 96.7 F L 102 H 18 165/92 H Room Air 05/03/24 10:04 04/13/24 00:22 05/03/24 10:04 04/13/24 00:22 05/03/24 10:04 Oxygen Delivery Method Room Air Weight: 162.502 kg Body Mass Index (BMI) 61.4 Physical Exam Narrative Neurovascular status unchanged to left lower extremity. Significant edema to bilateral lower extremities secondary to lack of hemodialysis. Full-thickness wounds to medial leg x 3 the central 2 wounds are the deepest and communicate. These wounds are significantly decreased in size since my prior evaluation. They will demonstrate clean granular bases with no undermining or deep probing. No acute signs of infection. Pre and postdebridement measurements documented nursing notes. New onset ulceration to plantar left heel started out with a blood blister postdebridement demonstrated a wound down to subcutaneous tissue with macerated periwound edges scant drainage. No acute signs infection deep probing undermining. Debridement Note Debridement Note Post-Debridement Measurements and Additional Note: Post-Debridement Measurements/Treatment - Nurse 1 - General Ulcer Assessment Start: 05/03/24 10:02 Freq: Status: Active Protocol: AIME Activity Type Activity Date Activity User E-sign Co-sign Detail Recorded Client Recorded Date Recorded By Document 05/03/24 10:04 MARILY [id number] 05/03/24 10:28 KW 05/03/24 10:04 - Today's Visit Information Type of service Follow-up Visit (Physician/MINT [employer] DEPOSITOR ) Arrival Mode Wheelchair Patient Identification Verified (Name & Yes ) Finger Stick Blood Sugar(mg/dl) (if 333 indicated): Blood Sugar Stated by Patient Height and Weight Body Mass Index (BMI) 61.4 BMI Classification Obese Vital Signs Temperature (97.8 F-99.1 F) 96.7 F L Temperature Source Temporal Pulse Location Monitor Respiratory Rate (12-18) 18 Respiratory rate source Observation Oxygen Delivery Method Room Air Source Monitor Position Semi-Fowlers Blood Pressure Location Left Forearm History Since Last Visit- (Skip if this is Patient's initial visit) Have you changed medications since your No last visit? Any new allergies or adverse reactions No Had a fall/change in ADL's that may No increase risk of falls Signs or symptoms of abuse and/or No neglect since last visit Have you been in the hospital since your No last visit? Has dressing in place as prescribed Yes Left Footwear Regular Shoe Right Footwear Regular Shoe Pain Scale: 0-10 Numeric Is Patient Pain Free? Yes WC - Nurse 1 - General Ulcer Measurement Start: 05/03/24 10:02 Freq: Status: Active Protocol: Activity Type Activity Date Activity User E-sign Co-sign Detail Recorded Client Recorded Date Recorded By Document 05/03/24 10:04 MARILY [id number] 05/03/24 10:28 MARILY 05/03/24 10:04 Wound Center Nurse 1 #12 LT MED LE INF -Current Size (cm) - Length 0.7 -Current Size (cm) - Width 0.5 -Current Size (cm) - Depth 2 -Total Square Cm 0.35 -Date of Last Picture (Recall this 05/03/24 field) -Exudate Amt Medium -Exudate Type Purulent -Wound Margin Thickened -Granulation Amt Large (67-100%) -Granulation Quality [place],Red -Texture (Carrie-wound Skin Appearance) Assessed -Moisture (Carrie-wound Skin Appearance) Assessed, Weeping -Color (Carrie-wound Skin Appearance) Assessed -Temperature (Carrie-wound Skin No Abnormality Appearance) (Pt Warm) -Tenderness on Palpation (Carrie-wound No Skin Appearance) -Ulcer Cleansing Soap and Water -Foul Odor after Cleansing No -Anesthetic Used 4% Lidocaine Solution 10--left medial prabhakar -Wound Margin Distinct, Outline Attached -Texture (Carrie-wound Skin Appearance) Assessed -Moisture (Carrie-wound Skin Appearance) Assessed -Color (Carrie-wound Skin Appearance) Assessed -Temperature (Carrie-wound Skin No Abnormality Appearance) (Pt Warm) -Tenderness on Palpation (Carrie-wound No Skin Appearance) -Ulcer Cleansing Soap and Water -Foul Odor after Cleansing No #9 L MED LE SUPERIOR -Current Size (cm) - Length 0.1 -Current Size (cm) - Width 0.4 -Current Size (cm) - Depth 2 -Total Square Cm 0.04 -Date of Last Picture (Recall this 05/03/24 field) -Tunneling Yes -Tunneling Position (O'clock) 7 -Tunneling Distance (cm) 3 -Exudate Amt Small -Exudate Type Serosanguineous -Wound Margin Distinct, Outline Attached -Granulation Amt Large (67-100%) -Granulation Quality [place],Red -Necrosis Amt Small (1-33%) -Necrotic Tissue Type Adherent Slough -Texture (Carrie-wound Skin Appearance) Assessed -Moisture (Carrie-wound Skin Appearance) Assessed -Color (Carrie-wound Skin Appearance) Assessed -Temperature (Carrie-wound Skin No Abnormality Appearance) (Pt Warm) -Ulcer Cleansing Soap and Water -Foul Odor after Cleansing No -Anesthetic Used 4% Lidocaine Solution #13 LT HEEL -Current Size (cm) - Length 0.1 -Current Size (cm) - Width 0.1 -Current Size (cm) - Depth 0 -Total Square Cm 0.01 -Date of Last Picture (Recall this 05/03/24 field) -Exudate Amt None Present -Granulation Amt None Present (0 %) -Necrosis Amt Large (67-100%) -Necrotic Tissue Type Eschar -Texture (Carrie-wound Skin Appearance) Assessed -Moisture (Carrie-wound Skin Appearance) Assessed -Color (Carrie-wound Skin Appearance) Assessed -Temperature (Carrie-wound Skin No Abnormality Appearance) (Pt Warm) -Tenderness on Palpation (Carrie-wound No Skin Appearance) -Ulcer Cleansing Soap and Water -Foul Odor after Cleansing No 6-LLE Medial leg CLUSTER -Current Size (cm) - Length 0.1 -Current Size (cm) - Width 0.1 -Current Size (cm) - Depth 0.1 -Total Square Cm 0.01 -Tunneling Yes -Tunneling Position (O'clock) 2 -Tunneling Distance (cm) 2 -Exudate Amt Medium -Exudate Type Serosanguineous -Wound Margin Distinct, Outline Attached -Granulation Amt Large (67-100%) -Granulation Quality [place] -Necrosis Amt Small (1-33%) -Necrotic Tissue Type Adherent Slough -Texture (Carrie-wound Skin Appearance) Assessed -Moisture (Carrie-wound Skin Appearance) Assessed -Color (Carrie-wound Skin Appearance) Assessed -Temperature (Carrie-wound Skin No Abnormality Appearance) (Pt Warm) -Tenderness on Palpation (Carrie-wound No Skin Appearance) -Ulcer Cleansing Soap and Water Left Calf (cm) 61 Left Ankle (cm) 39 WC - Nurse 2 - General Ulcer CM Notes Start: 05/03/24 10:02 Freq: Status: Active Protocol: Activity Type Activity Date Activity User E-sign Co-sign Detail Recorded Client Recorded Date Recorded By Document 05/03/24 10:37 NAJMA [id number] 05/03/24 10:45 NAJMA 05/03/24 10:37 Wound Center Nurse 2 #13 LT HEEL -Time 10:38 -Correct Patient Yes -Correct Side, Site, Position Yes -Correct Procedure Yes -Procedure Performed Yes -Type of Procedure Debridement -Clinical Debridement Subcutaneous -Tissue Removed Subcutaneous -Post Debridement (cm) - Length 1.8 -Post Debridement (cm) - Width 0.5 -Post Debridement (cm) - Depth 0.4 -Total Square (Post) (cm) 0.90 -Area of Debridement (cm) - Length 1.8 -Area of Debridement (cm) - Width 0.5 -Total Square (Area) (cm) 0.90 -Tunneling No -Undermining/Tunneling No -Circular Undermining No -Wound/Ulcer Outcome Not Healed -Ulcer Cleansing Rinsed/ Irrigated with Saline -Foul Odor after Cleansing No -Bioengineered Tissue No -Bleeding Controlled with Pressure -Treatment Response Procedure Tolerated Well -Offloading No -Debridement - Subq, 1st 20sq cm Yes 6-LLE Medial leg CLUSTER -Time 10:43 -Correct Patient Yes -Correct Side, Site, Position Yes -Correct Procedure Yes -Procedure Performed Yes -Type of Procedure Debridement -Clinical Debridement Muscle / Fascia -Tissue Removed Muscle -Post Debridement (cm) - Length 6.0 -Post Debridement (cm) - Width 0.6 -Post Debridement (cm) - Depth 4.5 -Total Square (Post) (cm) 3.60 -Area of Debridement (cm) - Length 6 -Area of Debridement (cm) - Width 0.6 -Total Square (Area) (cm) 3.6 -Tunneling No -Undermining/Tunneling No -Circular Undermining No -Wound/Ulcer Outcome Not Healed -Ulcer Cleansing Rinsed/ Irrigated with Saline -Foul Odor after Cleansing No -Bioengineered Tissue No -Bleeding Controlled with Pressure -Treatment Response Procedure Tolerated Well -Offloading No -Debridement - Muscle / Fascia, 1st Yes 20sq cm Pain Scale: 0-10 Numeric Is Patient Pain Free? Yes Assessment/Plan Assessment/Plan (1) Non-pressure chronic ulcer of left calf with fat layer exposed: CODE(S): L97.222 - Non-pressure chronic ulcer of left calf with fat layer exposed PLAN: Exam performed. Wounds improved today. Poorly controlled edema due to lack of hemodialysis patient has since restarted Left leg ulceration and plantar heel wound excisionally debrided down to including level of subcutaneous tissue of all nonviable tissue using a 5 mm dermal curette. Patient tolerated procedure well. Pre and postdebridement measurements documented nursing notes. Hemostasis obtained with light compression. Topical anesthesia used. Plan for daily wound packing to leg ulcerations with Betadine soaked gauze to plantar heel with overlying dry sterile dressing compression. Discussed patient compression elevation exercise for edema management. Patient has been keeping leg in dependent position has been noncompliant with hemodialysis treatments which is caused a poorly controlled left lower extremity edema contributing to delayed healing Patient follow-up weekly.
--- NOTE | 2024-05-04 11:44 | WC ---
PHOTO 05/03/24 LEFT HEEL
--- NOTE | 2024-05-04 11:45 | WC ---
PHOTO 05/03/24 LEFT MEDIAL LE SUP
--- NOTE | 2024-05-04 11:46 | WC ---
PHOTO 05/03/24 LT MED LE
== END 2024-05-13 23:59 | disposition home or self-care (01) ==
LOC: WC 09:50
PROVIDERS: PCP Nurse Practitioner Family; Referring Provider Internal Medicine; Visit Provider Podiatrist
DX: E11.622 Type 2 diabetes mellitus with other skin ulcer (principal); L97.222 Non-pressure chronic ulcer of left calf with fat layer exposed; L97.422 Non-pressure chronic ulcer of left heel and midfoot with fat layer exposed; E11.42 Type 2 diabetes mellitus with diabetic polyneuropathy; Z79.4 Long term (current) use of insulin; Z91.158 Patient's noncompliance with renal dialysis for other reason; Z79.85 Long-term (current) use of injectable non-insulin antidiabetic drugs; Z79.890 Hormone replacement therapy; Z79.899 Other long term (current) drug therapy; R60.0 Localized edema
CPT/HCPCS: 11042; 11043

== ENCOUNTER 2024-07-05 07:56 | Outpatient (RCR) | payer MEDICAID, SELFPAY ==
[2024-05-14 01:54] VITALS: BP 165/92; PULSE 102; RESP 18; TEMP 35.9; BMI 61.4
[2024-07-05 10:29] VITALS: BP 174/78; PULSE 87; RESP 15; TEMP 36.1; BMI 61.4
--- NOTE | 2024-07-05 11:02 | PN.PCM_ITS ---
History of Present Illness Date of Service: 07/05/24 Chief Complaint: Left History of Wound: Ms. Rosenberg is a 43-year-old diabetic female presenting to wound care center today for bilateral lower extremity ulcerations. Patient was referred to the wound care center from a doctor in [place]. She does see podiatry in [place]. Patient has evidence of left proximal and heel ulcerations as well as right foot ulceration secondary to peripheral neuropathy and diabetes. Patient is an uncontrolled diabetic with a blood sugar ranging from 300 mg/dL daily. Her A1c is 13%. Treatment has been with local wound care and oral antibiotics at this time. She does admit to trauma to the left proximal ulceration. Denies constitutional symptoms. No other pedal complaints at this time. Objective Data Objective Data Vital Signs: Vital Signs Temp Pulse Resp BP 97.0 F L 87 15 174/78 H 07/05/24 10:29 07/05/24 10:29 07/05/24 10:29 07/05/24 10:29 Weight: 162.502 kg Body Mass Index (BMI) 61.4 Physical Exam Narrative Neurovascular status unchanged. Diffuse left lower extremity edema. Healed left lower extremity ulcerations, 1 deep probing ulceration remains some purulent drainage noted approximately 3 cc today. No periwound erythema edema or warmth. No gross musculoskeletal deformity or sign of DVT. Debridement Note Debridement Note Post-Debridement Measurements and Additional Note: Post-Debridement Measurements/Treatment - Nurse 1 - General Ulcer Assessment Start: 07/05/24 10:29 Freq: Status: Active Protocol: .LOWEX Activity Type Activity Date Activity User E-sign Co-sign Detail Recorded Client Recorded Date Recorded By Document 07/05/24 10:29 ML [id number] 07/05/24 10:41 ML 07/05/24 10:29 - Today's Visit Information Type of service Initial Visit Arrival Mode Wheelchair Transfer Assistance None Patient Identification Verified (Name & Yes ) Patient Requires Transmission-Based No Precautions Height and Weight Body Mass Index (BMI) 61.4 BMI Classification Obese Vital Signs Temperature (97.8 F-99.1 F) 97.0 F L Temperature Source Temporal Pulse Rate (60-100) 87 Pulse Location Monitor Respiratory Rate (12-18) 15 Respiratory rate source Observation Blood Pressure (90/60-120/80) 174/78 H Blood Pressure Mean (mm Hg) 110 Source Monitor Position Sitting Blood Pressure Location Right Forearm History Since Last Visit- (Skip if this is Patient's initial visit) Have you changed medications since your No last visit? Any new allergies or adverse reactions No Had a fall/change in ADL's that may No increase risk of falls Signs or symptoms of abuse and/or No neglect since last visit Have you been in the hospital since your No last visit? Has dressing in place as prescribed No Has compression in place as prescribed N/A Has offloadiing in place as prescribed N/A Experienced any changes in pain level or No management Pain Scale: 0-10 Numeric Is Patient Pain Free? Yes WC - Nurse 1 - General Ulcer Measurement Start: 07/05/24 10:29 Freq: Status: Active Protocol: Activity Type Activity Date Activity User E-sign Co-sign Detail Recorded Client Recorded Date Recorded By Document 07/05/24 10:29 ML [id number] 07/05/24 10:41 ML 07/05/24 10:29 Wound Center Nurse 1 #13 LT HEEL -Current Size (cm) - Length 0.1 -Current Size (cm) - Width 0.1 -Current Size (cm) - Depth 0.1 -Total Square Cm 0.01 -Exudate Amt None Present -Granulation Amt None Present (0 %) -Slough/Fibrin No -Necrosis Amt None Present (0 %) -Texture (Carrie-wound Skin Appearance) No Abnormality -Moisture (Carrie-wound Skin Appearance) No Abnormality -Color (Carrie-wound Skin Appearance) No Abnormality -Temperature (Carrie-wound Skin No Abnormality Appearance) (Pt Warm) -Ulcer Cleansing Soap and Water -Foul Odor after Cleansing No -Anesthetic Used 5% Lidocaine Gel 6-LLE Medial leg CLUSTER -Current Size (cm) - Length 0.1 -Current Size (cm) - Width 0.1 -Current Size (cm) - Depth 5 -Total Square Cm 0.01 -Exudate Amt Large -Exudate Type Yellow/Green -Wound Margin Distinct, Outline Attached -Granulation Amt Medium (34-66%) -Slough/Fibrin Yes -Necrosis Amt Large (67-100%) -Necrotic Tissue Type Adherent Slough -Texture (Carrie-wound Skin Appearance) Scarring -Moisture (Carrie-wound Skin Appearance) Assessed -Color (Carrie-wound Skin Appearance) Assessed -Temperature (Carrie-wound Skin No Abnormality Appearance) (Pt Warm) -Tenderness on Palpation (Carrie-wound No Skin Appearance) -Ulcer Cleansing Soap and Water -Foul Odor after Cleansing No -Anesthetic Used 5% Lidocaine Gel WC - Nurse 2 - General Ulcer CM Notes Start: 07/05/24 10:29 Freq: Status: Active Protocol: Activity Type Activity Date Activity User E-sign Co-sign Detail Recorded Client Recorded Date Recorded By Document 07/05/24 11:01 NAJMA [id number] 07/05/24 11:02 NAJMA 07/05/24 11:01 Wound Center Nurse 2 #13 LT HEEL -Correct Patient No -Correct Side, Site, Position No -Correct Procedure No -Procedure Performed No 6-LLE Medial leg CLUSTER -Time 11:01 -Correct Patient Yes -Correct Side, Site, Position Yes -Correct Procedure Yes -Procedure Performed Yes -Type of Procedure Debridement -Clinical Debridement Subcutaneous -Tissue Removed Subcutaneous -Post Debridement (cm) - Length 0.5 -Post Debridement (cm) - Width 0.5 -Post Debridement (cm) - Depth 4 -Total Square (Post) (cm) 0.25 -Area of Debridement (cm) - Length 0.5 -Area of Debridement (cm) - Width 0.5 -Total Square (Area) (cm) 0.25 -Tunneling No -Undermining/Tunneling No -Circular Undermining No -Wound/Ulcer Outcome Not Healed -Ulcer Cleansing Rinsed/ Irrigated with Saline -Foul Odor after Cleansing No -Bioengineered Tissue No -Bleeding Controlled with Pressure -Treatment Response Procedure Tolerated Well -Offloading No -Debridement - Subq, 1st 20sq cm Yes Pain Scale: 0-10 Numeric Is Patient Pain Free? Yes Assessment/Plan Assessment/Plan (1) Cellulitis of left lower limb: CODE(S): L03.116 - Cellulitis of left lower limb PLAN: Exam performed. Right left lower extremity ulcerations of healed. Residual small punctate deep probing ulceration noted to the medial leg. Purulent drainage noted today. This was expressed and debrided excisionally down to including level subcutaneous tissue of all nonviable tissue using 5 mm dermal curette. All purulence was expressed. Site was flushed with saline. Hemostasis obtained with light compression. Pre and postdebridement measurements document nursing notes. Topical anesthesia used. Patient tolerated procedure well. Will plan for daily iodoform packing and compression with a elevation for edema management. 3 cc purulence drained from the site. Prescription for doxycycline provided. Follow-up weekly patient has been noncompliant with dialysis and follow-up and dressing care due to lack of transportation and lack of money to pay for care. Billing Justification for CPT 51219 + 10183 Patient Background: The patient is a chronically diabetic individual with comorbid kidney disease and neuropathy, which significantly increases the risk of wound complications and delayed healing. CPT 42515 - Established Patient Office Visit (Level 3) This evaluation and management (E/M) service was justified based on the following components: * History: The patient presented with a non-healing wound, signs of infection (purulent drainage), and underlying risk factors (diabetes, kidney disease, neuropathy). * Examination: The wound was assessed, including documentation of size, depth, presence of drainage, and signs of infection. * Medical Decision-Making: Given the concern for infection, a wound culture was obtained, and an antibiotic prescription was provided based on clinical suspicion and patient risk factors. CPT 83751 - Debridement of Subcutaneous Tissue (First 20 cm? or Less) This procedure was performed due to the presence of non-viable tissue and purulent drainage, necessitating debridement to promote wound healing and reduce bacterial load. * Indication: The wound exhibited signs of infection, and debridement was necessary to remove necrotic tissue. * Procedure: Sharp debridement was performed, with removal of subcutaneous devitalized tissue. * Post-Procedure Plan: Wound care instructions were provided, and the patient was prescribed an appropriate antibiotic. Follow-up was arranged to monitor healing and assess response to treatment. Medical Necessity & Rationale: The combination of 05589 (for the E/M service) and 55489 (for debridement) is justified as separate and necessary services. The E/M visit was required for a full assessment of infection risk, determination of appropriate treatment (culture, antibiotic), and coordination of care, while the debridement was a distinct procedural intervention to manage the wound effectively. This documentation supports the medical necessity of both services in alignment with coding guidelines. (2) Non-pressure chronic ulcer of other part of left foot with fat layer exposed: CODE(S): L97.522 - Non-pressure chronic ulcer of other part of left foot with fat layer exposed
--- NOTE | 2024-07-06 12:16 | WC ---
PHOTO 07/05/24 RONNIE
== END 2024-07-11 23:59 | disposition home or self-care (01) ==
LOC: WC 07:56
PROVIDERS: PCP Nurse Practitioner Family; Referring Provider Internal Medicine; Visit Provider Podiatrist
DX: E11.621 Type 2 diabetes mellitus with foot ulcer (principal); L97.422 Non-pressure chronic ulcer of left heel and midfoot with fat layer exposed; E11.42 Type 2 diabetes mellitus with diabetic polyneuropathy; L03.116 Cellulitis of left lower limb
CPT/HCPCS: 11042; 87070; 87075; 87077; 87186; 87205; 99213; G0463

== ENCOUNTER 2024-07-12 10:21 | Outpatient (RCR) | payer MEDICAID, SELFPAY ==
[2024-07-12 00:09] VITALS: BP 174/78; PULSE 87; RESP 15; TEMP 36.1; BMI 61.4
[2024-07-12 10:24] VITALS: BP 136/85; PULSE 93; RESP 16; BMI 61.4
--- NOTE | 2024-07-12 10:50 | PN.PCM_ITS ---
History of Present Illness Date of Service: 07/12/24 Chief Complaint: Left History of Wound: Ms. Rosenberg is a 43-year-old diabetic female presenting to wound care center today for bilateral lower extremity ulcerations. Patient was referred to the wound care center from a doctor in [place]. She does see podiatry in [place]. Patient has evidence of left proximal and heel ulcerations as well as right foot ulceration secondary to peripheral neuropathy and diabetes. Patient is an uncontrolled diabetic with a blood sugar ranging from 300 mg/dL daily. Her A1c is 13%. Treatment has been with local wound care and oral antibiotics at this time. She does admit to trauma to the left proximal ulceration. Denies constitutional symptoms. No other pedal complaints at this time. Objective Data Objective Data Vital Signs: Vital Signs Temp Pulse Resp BP 97.0 F L 93 16 136/85 H 07/12/24 00:09 07/12/24 10:24 07/12/24 10:24 07/12/24 10:24 Weight: 162.502 kg Body Mass Index (BMI) 61.4 Physical Exam Narrative Neurovascular status unchanged. Diffuse left lower extremity edema. Healed left lower extremity ulcerations, 1 deep probing ulceration remains with residual purulent drainage noted today at 1cc today. new wound to plantar heel with periwound hyperkeratosis, no acute infection. No deep probing or undermining. No periwound erythema edema or warmth. No gross musculoskeletal deformity or sign of DVT. 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 ) Arrival Mode Wheelchair Transfer Assistance None Patient Identification Verified (Name & Yes ) Patient Requires Transmission-Based No Precautions Height and Weight Body Mass Index (BMI) 61.4 BMI Classification Obese Vital Signs Pulse Rate (60-100) 93 Pulse Location Monitor Respiratory Rate (12-18) 16 Respiratory rate source Observation Blood Pressure (90/60-120/80) 136/85 H Blood Pressure Mean (mm Hg) 102 Source Monitor Position Sitting Blood Pressure Location Right Forearm History Since Last Visit- (Skip if this is Patient's initial visit) Have you changed medications since your No last visit? Any new allergies or adverse reactions No Had a fall/change in ADL's that may No increase risk of falls Signs or symptoms of abuse and/or No neglect since last visit Have you been in the hospital since your No last visit? Has dressing in place as prescribed Yes Has compression in place as prescribed Yes Has offloadiing in place as prescribed N/A Experienced any changes in pain level or No management Pain Scale: 0-10 Numeric Is Patient Pain Free? Yes WC - Nurse 1 - General Ulcer Measurement Start: 07/12/24 10:24 Freq: Status: Active Protocol: Activity Type Activity Date Activity User E-sign Co-sign Detail Recorded Client Recorded Date Recorded By Document 07/12/24 10:24 ML [id number] 07/12/24 10:33 ML 07/12/24 10:24 Wound Center Nurse 1 #13 LT HEEL -Current Size (cm) - Length 0.5 -Current Size (cm) - Width 0.5 -Current Size (cm) - Depth 4.3 -Total Square Cm 0.25 -Exudate Amt Medium -Exudate Type Serosanguineous -Wound Margin Distinct, Outline Attached -Granulation Amt Medium (34-66%) -Necrosis Amt Medium (34-66%) -Necrotic Tissue Type Adherent Slough -Texture (Carrie-wound Skin Appearance) Assessed -Moisture (Carrie-wound Skin Appearance) Assessed -Color (Carrie-wound Skin Appearance) Assessed -Temperature (Carrie-wound Skin No Abnormality Appearance) (Pt Warm) -Tenderness on Palpation (Carrie-wound Yes Skin Appearance) -Ulcer Cleansing Rinsed/ Irrigated with Saline -Foul Odor after Cleansing No -Anesthetic Used 5% Lidocaine Gel Assessment/Plan Assessment/Plan (1) Cellulitis of left lower limb: CODE(S): L03.116 - Cellulitis of left lower limb PLAN: Exam performed. Residual small punctate deep probing ulceration noted to the left medial leg. Purulent drainage noted today. This was expressed and debrided excisionally down to including level muscle of all nonviable tissue using 5 mm dermal curette. All purulence was expressed. Site was flushed with saline. Hemostasis obtained with light compression. Pre and postdebridement measurements document nursing notes. Topical anesthesia used. Patient tolerated procedure well. Will plan for daily iodoform packing and compression with a elevation for edema management. Wound to plantar left heel excisionally debrided down to and including level of subcutaneous tissue of all non-viable tissue using a #15 blade. topical an esthesia used. pre/post debridement measurements documented in nursing notes. hemostasis obtained with compression. 1cc purulence drained from the site. Doxycycline prescription extended. Follow-up weekly patient has been noncompliant with dialysis and follow-up and dressing care due to lack of transportation and lack of money to pay for care. (2) Non-pressure chronic ulcer of other part of left foot with fat layer exposed: CODE(S): L97.522 - Non-pressure chronic ulcer of other part of left foot with fat layer exposed
== END 2024-08-10 23:59 | disposition home or self-care (01) ==
LOC: WC 10:21
PROVIDERS: PCP Nurse Practitioner Family; Referring Provider Internal Medicine; Visit Provider Podiatrist
DX: E11.621 Type 2 diabetes mellitus with foot ulcer (principal); L97.422 Non-pressure chronic ulcer of left heel and midfoot with fat layer exposed; L97.929 Non-pressure chronic ulcer of unspecified part of left lower leg with unspecified severity; E11.42 Type 2 diabetes mellitus with diabetic polyneuropathy; Z79.4 Long term (current) use of insulin; L03.116 Cellulitis of left lower limb; R60.0 Localized edema; Z79.85 Long-term (current) use of injectable non-insulin antidiabetic drugs; Z79.890 Hormone replacement therapy; Z79.899 Other long term (current) drug therapy; Z91.151 Patient's noncompliance with renal dialysis due to financial hardship
CPT/HCPCS: 11042; 11043; 29581

== ENCOUNTER 2024-10-04 10:30 | Outpatient (RCR) | payer MEDICAID, SELFPAY ==
[2024-08-11 00:26] VITALS: BP 136/85; PULSE 93; RESP 16; TEMP 36.1; BMI 61.4
[2024-09-20 10:11] VITALS: BP 172/92; PULSE 100; RESP 18; TEMP 36.1; BMI 61.4
--- NOTE | 2024-09-20 11:02 | PN.PCM_ITS ---
History of Present Illness Date of Service: 09/20/24 Chief Complaint: Left History of Wound: Ms. Rosenberg is a 43-year-old diabetic female presenting to wound care center today for bilateral lower extremity ulcerations. Patient was referred to the wound care center from a doctor in [place]. She does see podiatry in [place]. Patient has evidence of left proximal and heel ulcerations as well as right foot ulceration secondary to peripheral neuropathy and diabetes. Patient is an uncontrolled diabetic with a blood sugar ranging from 300 mg/dL daily. Her A1c is 13%. Treatment has been with local wound care and oral antibiotics at this time. She does admit to trauma to the left proximal ulceration. Denies constitutional symptoms. No other pedal complaints at this time. Objective Data Objective Data Vital Signs: Vital Signs Temp Pulse Resp BP O2 Del Method 97.0 F L 100 18 172/92 H Room Air 09/20/24 10:11 09/20/24 10:11 09/20/24 10:11 09/20/24 10:11 09/20/24 10:11 Oxygen Delivery Method Room Air Weight: 162.502 kg Body Mass Index (BMI) 61.4 Physical Exam Narrative Neurovascular status unchanged. Diffuse left lower extremity edema. Healed left lower extremity ulcerations, 1 deep probing ulceration - no residual purulence healed plantar heel wound left hallux IPJ blister noted - deroofment actually yielded intact epidermis. 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 ) Arrival Mode Wheelchair Patient Identification Verified (Name & Yes ) Height and Weight Body Mass Index (BMI) 61.4 BMI Classification Obese Vital Signs Temperature (97.8 F-99.1 F) 97.0 F L Temperature Source Temporal Pulse Rate (60-100) 100 Pulse Location Monitor Respiratory Rate (12-18) 18 Respiratory rate source Observation Oxygen Delivery Method Room Air Blood Pressure (90/60-120/80) 172/92 H Blood Pressure Mean (mm Hg) 118 Source Monitor Position Semi-Fowlers Blood Pressure Location Right Forearm History Since Last Visit- (Skip if this is Patient's initial visit) Have you changed medications since your No last visit? Any new allergies or adverse reactions No Had a fall/change in ADL's that may No increase risk of falls Signs or symptoms of abuse and/or No neglect since last visit Have you been in the hospital since your No last visit? Has dressing in place as prescribed Yes Has compression in place as prescribed Yes Has offloadiing in place as prescribed N/A Experienced any changes in pain level or No management Left Footwear No Footwear Right Footwear Regular Shoe Pain Scale: 0-10 Numeric Is Patient Pain Free? Yes WC - Nurse 1 - General Ulcer Measurement Start: 09/20/24 10:11 Freq: Status: Active Protocol: Activity Type Activity Date Activity User E-sign Co-sign Detail Recorded Client Recorded Date Recorded By Document 09/20/24 10:11 KW [id number] 09/20/24 10:30 KW 09/20/24 10:11 Wound Center Nurse 1 6-LLE Medial leg CLUSTER -Current Size (cm) - Length 0.3 -Current Size (cm) - Width 0.3 -Current Size (cm) - Depth 1.9 -Total Square Cm 0.09 -Date of Last Picture (Recall this 09/20/24 field) -Exudate Amt Medium -Exudate Type Serosanguineous -Wound Margin Thickened -Granulation Amt Large (67-100%) -Granulation Quality [place] -Necrosis Amt Small (1-33%) -Necrotic Tissue Type Adherent Slough -Texture (Carrie-wound Skin Appearance) Assessed, Localized Edema ,Scarring -Moisture (Carrie-wound Skin Appearance) Assessed -Color (Carrie-wound Skin Appearance) Assessed, Erythema -Temperature (Carrie-wound Skin No Abnormality Appearance) (Pt Warm) -Ulcer Cleansing Soap and Water -Foul Odor after Cleansing No -Anesthetic Used 5% Lidocaine Gel Left Calf (cm) 66.5 Left Ankle (cm) 37.5 WC - Nurse 2 - General Ulcer CM Notes Start: 09/20/24 10:11 Freq: Status: Active Protocol: Activity Type Activity Date Activity User E-sign Co-sign Detail Recorded Client Recorded Date Recorded By Document 09/20/24 10:46 NAJMA [id number] 09/20/24 11:00 NAJMA 09/20/24 10:46 Wound Center Nurse 2 #13 LT HEEL -Correct Patient Yes -Correct Side, Site, Position No -Correct Procedure No -Procedure Performed No -Post Debridement (cm) - Length 0 -Post Debridement (cm) - Width 0 -Post Debridement (cm) - Depth 0 -Total Square (Post) (cm) 0 -Area of Debridement (cm) - Length 0 -Area of Debridement (cm) - Width 0 -Total Square (Area) (cm) 0 -Wound/Ulcer Outcome Healed- Epithelialized 6-LLE Medial leg CLUSTER -Time 10:51 -Correct Patient Yes -Correct Side, Site, Position Yes -Correct Procedure Yes -Procedure Performed Yes -Type of Procedure Debridement -Clinical Debridement Subcutaneous -Tissue Removed Subcutaneous -Post Debridement (cm) - Length 0.5 -Post Debridement (cm) - Width 1.0 -Post Debridement (cm) - Depth 1.0 -Total Square (Post) (cm) 0.50 -Area of Debridement (cm) - Length 0.5 -Area of Debridement (cm) - Width 1.0 -Total Square (Area) (cm) 0.50 -Tunneling No -Undermining/Tunneling No -Circular Undermining No -Wound/Ulcer Outcome Not Healed -Ulcer Cleansing Rinsed/ Irrigated with Saline -Foul Odor after Cleansing No -Bioengineered Tissue No -Bleeding Controlled with Pressure -Treatment Response Procedure Tolerated Well -Offloading No -Debridement - Subq, 1st 20sq cm Yes Pain Scale: 0-10 Numeric Is Patient Pain Free? Yes Assessment/Plan Assessment/Plan (1) Cellulitis of left lower limb: CODE(S): L03.116 - Cellulitis of left lower limb PLAN: Exam performed. Residual small punctate deep probing ulceration noted to the left medial leg. This site was excisionally debrided of all non-viable tissue using a 5mm dermal curette down to level of subcutaneous tissue. topical anestehsia used. patient tolerated procedure well. pre/post debridement measurements documented in nursing notes. Delayed primary closure *[id number]* left medial leg wound performed using 2-0 prolene, simple, interupted. dressed with betadine/adaptec/3m compresion follow up weekly (2) Non-pressure chronic ulcer of other part of left foot with fat layer exposed: CODE(S): L97.522 - Non-pressure chronic ulcer of other part of left foot with fat layer exposed
--- NOTE | 2024-09-20 13:01 | WC ---
PHOTO 09/20/24 LEFT ARIADNA LOERA
[2024-09-27 10:21] VITALS: BP 186/108; PULSE 98; RESP 18; TEMP 36; BMI 61.4
--- NOTE | 2024-09-27 10:29 | PN.PCM_ITS ---
History of Present Illness Date of Service: 09/27/24 Chief Complaint: Left History of Wound: Ms. Rosenberg is a 43-year-old diabetic female presenting to wound care center today for bilateral lower extremity ulcerations. Patient was referred to the wound care center from a doctor in [place]. She does see podiatry in [place]. Patient has evidence of left proximal and heel ulcerations as well as right foot ulceration secondary to peripheral neuropathy and diabetes. Patient is an uncontrolled diabetic with a blood sugar ranging from 300 mg/dL daily. Her A1c is 13%. Treatment has been with local wound care and oral antibiotics at this time. She does admit to trauma to the left proximal ulceration. Denies constitutional symptoms. No other pedal complaints at this time. Objective Data Objective Data Vital Signs: Vital Signs Temp Pulse Resp BP O2 Del Method 96.8 F L 98 18 186/108 H Room Air 09/27/24 10:21 09/27/24 10:21 09/27/24 10:21 09/27/24 10:21 09/20/24 10:11 Oxygen Delivery Method Room Air Weight: 162.502 kg Body Mass Index (BMI) 61.4 Physical Exam Narrative Neurovascular status unchanged. Diffuse left lower extremity edema. Healed left lower extremity ulcerations, 1 deep probing ulceration - no residual purulence healed plantar heel wound left hallux IPJ blister noted - deroofment actually yielded intact epidermis. Const alert and oriented x3 Debridement Note Debridement Note Post-Debridement Measurements and Additional Note: Post-Debridement Measurements/Treatment WC - Nurse 1 - General Ulcer Assessment Start: 09/20/24 10:11 Freq: Status: Active Protocol: AIME Activity Type Activity Date Activity User E-sign Co-sign Detail Recorded Client Recorded Date Recorded By Document 09/20/24 10:11 KW [id number] 09/20/24 10:30 KW Document 09/27/24 10:21 JF [id number] 09/27/24 10:25 NAJMA Edit Result 09/27/24 10:21 JF (1) [id number] 09/27/24 10:28 JF (1) Blood Pressure (90/60-120/80) => 186/108 H Blood Pressure Mean (mm Hg) => 134 Source => Monitor Position => Semi-Fowlers Blood Pressure Location => Left Forearm 09/20/24 09/27/24 10:11 10:21 - Today's Visit Information Type of service Follow-up Visit Initial Visit, (Physician/MANUFACTURING SALES REPRESENTATIVE Follow-up Visit ) (Physician/MANUFACTURING SALES REPRESENTATIVE ) Arrival Mode Wheelchair Walker Patient Identification Verified (Name & Yes Yes ) Patient Requires Transmission-Based No Precautions Height and Weight Body Mass Index (BMI) 61.4 61.4 BMI Classification Obese Obese Vital Signs Temperature (97.8 F-99.1 F) 97.0 F L 96.8 F L Temperature Source Temporal Temporal Pulse Rate (60-100) 100 98 Pulse Location Monitor Monitor Respiratory Rate (12-18) 18 18 Respiratory rate source Observation Observation Oxygen Delivery Method Room Air Blood Pressure (90/60-120/80) 172/92 H 186/108 H Blood Pressure Mean (mm Hg) 118 134 Source Monitor Monitor Position Semi-Fowlers Semi-Fowlers Blood Pressure Location Right Forearm Left Forearm History Since Last Visit- (Skip if this is Patient's initial visit) Have you changed medications since your No Yes last visit? Any new allergies or adverse reactions No No Had a fall/change in ADL's that may No No increase risk of falls Signs or symptoms of abuse and/or No No neglect since last visit Have you been in the hospital since your No No last visit? Has dressing in place as prescribed Yes Yes Has compression in place as prescribed Yes Yes Has offloadiing in place as prescribed N/A N/A Experienced any changes in pain level or No No management Left Footwear No Footwear No Footwear Right Footwear Regular Shoe Slipper Pain Scale: 0-10 Numeric Is Patient Pain Free? Yes Yes - Nurse 1 - General Ulcer Measurement Start: 09/20/24 10:11 Freq: Status: Active Protocol: Activity Type Activity Date Activity User E-sign Co-sign Detail Recorded Client Recorded Date Recorded By Document 09/20/24 10:11 KW [id number] 09/20/24 10:30 KW Document 09/27/24 10:21 NAJMA [id number] 09/27/24 10:25 NAJMA 09/20/24 09/27/24 10:11 10:21 Wound Center Nurse 1 6-LLE Medial leg CLUSTER -Current Size (cm) - Length 0.3 0.1 -Current Size (cm) - Width 0.3 0.1 -Current Size (cm) - Depth 1.9 0.1 -Total Square Cm 0.09 0.01 -Date of Last Picture (Recall this 09/20/24 field) -Photo Taken No -Epithelialization Large 67-100% -Tunneling No -Undermining/Tunneling No -Circular Undermining No -Exudate Amt Medium Small -Exudate Type Serosanguineous Sanguineous -Wound Margin Thickened Flat & Intact -Granulation Amt Large (67-100%) -Granulation Quality [place] -Necrosis Amt Small (1-33%) -Necrotic Tissue Type Adherent Slough -Texture (Sukhdeep-wound Skin Appearance) Assessed, Localized Edema ,Scarring -Moisture (Sukhdeep-wound Skin Appearance) Assessed -Color (Sukhdeep-wound Skin Appearance) Assessed, Erythema -Temperature (Sukhdeep-wound Skin No Abnormality Appearance) (Pt Warm) -Ulcer Cleansing Soap and Water Soap and Water -Foul Odor after Cleansing No No -Anesthetic Used 5% Lidocaine Gel Lower Limb Edema Present Yes Left Calf (cm) 66.5 60 Left Ankle (cm) 37.5 37 WC - Nurse 2 - General Ulcer CM Notes Start: 09/20/24 10:11 Freq: Status: Active Protocol: Activity Type Activity Date Activity User E-sign Co-sign Detail Recorded Client Recorded Date Recorded By Document 09/20/24 10:46 NAJMA [id number] 09/20/24 11:00 Document 09/27/24 10:26 [id number] 09/27/24 10:27 09/20/24 09/27/24 10:46 10:26 Wound Center Nurse 2 #13 LT HEEL -Correct Patient Yes -Correct Side, Site, Position No -Correct Procedure No -Procedure Performed No -Post Debridement (cm) - Length 0 -Post Debridement (cm) - Width 0 -Post Debridement (cm) - Depth 0 -Total Square (Post) (cm) 0 -Area of Debridement (cm) - Length 0 -Area of Debridement (cm) - Width 0 -Total Square (Area) (cm) 0 -Wound/Ulcer Outcome Healed- Epithelialized 6-LLE Medial leg CLUSTER -Time 10:51 -Correct Patient Yes Yes -Correct Side, Site, Position Yes No -Correct Procedure Yes No -Procedure Performed Yes No -Type of Procedure Debridement -Clinical Debridement Subcutaneous -Tissue Removed Subcutaneous -Post Debridement (cm) - Length 0.5 0.1 -Post Debridement (cm) - Width 1.0 0.1 -Post Debridement (cm) - Depth 1.0 0.1 -Total Square (Post) (cm) 0.50 0.01 -Area of Debridement (cm) - Length 0.5 0.1 -Area of Debridement (cm) - Width 1.0 0.1 -Total Square (Area) (cm) 0.50 0.01 -Tunneling No No -Undermining/Tunneling No No -Circular Undermining No No -Wound/Ulcer Outcome Not Healed Not Healed -Ulcer Cleansing Rinsed/ Irrigated with Saline -Foul Odor after Cleansing No -Bioengineered Tissue No -Bleeding Controlled with Pressure -Treatment Response Procedure Tolerated Well -Offloading No -Debridement - Subq, 1st 20sq cm Yes No Pain Scale: 0-10 Numeric Is Patient Pain Free? Yes Yes - Nurse 3 - General Ulcer D/C NN Start: 09/20/24 10:11 Freq: Status: Active Protocol: Activity Type Activity Date Activity User E-sign Co-sign Detail Recorded Client Recorded Date Recorded By Document 09/20/24 11:13 [facility] [id number] 09/20/24 11:15 [facility] 09/20/24 11:13 Wound Care Center Nurse 3 6-LLE Medial leg CLUSTER -Ulcer Cleansing soap and water to sukhdeep area -Primary Dressing Applied NonAdherent Contact Layer, Optilok 5x5 1/2 -Other Dressing betadine -Primary Dressing Covered/Secured with Dry Gauze & Roll Gauze, Secured with Tape -Optilok 5x5 1/2 1 LLE -Multi-Layered Wrap Application Multi-Layer Comp - Left ($) -Multi-Layer Compression Left (Qty 1 applied) Pain Scale: 0-10 Numeric Is Patient Pain Free? Yes - Visit Discharge Discharge Condition Stable Ambulatory Status Wheelchair Transportation Private Auto Accompanied by family member Assessment/Plan Assessment/Plan (1) Cellulitis of left lower limb: CODE(S): L03.116 - Cellulitis of left lower limb PLAN: Exam performed. healing delayed primary closure site to right medial leg. re-dressed with betadine, adaptec, 3m dressing. follow up weekly (2) Non-pressure chronic ulcer of other part of left foot with fat layer exposed: CODE(S): L97.522 - Non-pressure chronic ulcer of other part of left foot with fat layer exposed
[2024-10-04 10:34] VITALS: BP 181/113; PULSE 87; RESP 18; TEMP 36.1; BMI 61.4
--- NOTE | 2024-10-04 11:08 | PN.PCM_ITS ---
History of Present Illness Date of Service: 10/04/24 Chief Complaint: Left History of Wound: Ms. Rosenberg is a 43-year-old diabetic female presenting to wound care center today for bilateral lower extremity ulcerations. Patient was referred to the wound care center from a doctor in [place]. She does see podiatry in [place]. Patient has evidence of left proximal and heel ulcerations as well as right foot ulceration secondary to peripheral neuropathy and diabetes. Patient is an uncontrolled diabetic with a blood sugar ranging from 300 mg/dL daily. Her A1c is 13%. Treatment has been with local wound care and oral antibiotics at this time. She does admit to trauma to the left proximal ulceration. Denies constitutional symptoms. No other pedal complaints at this time. Objective Data Objective Data Vital Signs: Vital Signs Temp Pulse Resp BP O2 Del Method 97.0 F L 87 18 181/113 H Room Air 10/04/24 10:34 10/04/24 10:34 10/04/24 10:34 10/04/24 10:34 10/04/24 10:34 Oxygen Delivery Method Room Air Weight: 162.502 kg Body Mass Index (BMI) 61.4 Physical Exam Narrative Neurovascular status unchanged. Diffuse left lower extremity edema. Healed left lower extremity ulcerations, 1 deep probing ulceration - no residual purulence healed plantar heel wound left hallux IPJ blister noted - deroofment actually yielded intact epidermis. Const alert and oriented x3 Debridement Note Debridement Note Post-Debridement Measurements and Additional Note: Post-Debridement Measurements/Treatment WC - Nurse 1 - General Ulcer Assessment Start: 09/20/24 10:11 Freq: Status: Active Protocol: AIME Activity Type Activity Date Activity User E-sign Co-sign Detail Recorded Client Recorded Date Recorded By Document 09/20/24 10:11 KW [id number] 09/20/24 10:30 KW Document 09/27/24 10:21 JF [id number] 09/27/24 10:25 JF Edit Result 09/27/24 10:21 JF (1) [id number] 09/27/24 10:28 JF Document 10/04/24 10:34 KW [id number] 10/04/24 10:41 KW (1) Blood Pressure (90/60-120/80) => 186/108 H Blood Pressure Mean (mm Hg) => 134 Source => Monitor Position => Semi-Fowlers Blood Pressure Location => Left Forearm 09/20/24 09/27/24 10/04/24 10:11 10:21 10:34 - Today's Visit Information Type of service Follow-up Visit Initial Visit, Follow-up Visit (Physician/COUTURE ALTERATIONS DRESSMAKER Follow-up Visit (Physician/COUTURE ALTERATIONS DRESSMAKER ) (Physician/COUTURE ALTERATIONS DRESSMAKER ) ) Arrival Mode Wheelchair Walker Wheelchair Transfer Assistance Manual Patient Identification Verified (Name & Yes Yes Yes ) Patient Requires Transmission-Based No Precautions Height and Weight Body Mass Index (BMI) 61.4 61.4 61.4 BMI Classification Obese Obese Obese Vital Signs Temperature (97.8 F-99.1 F) 97.0 F L 96.8 F L 97.0 F L Temperature Source Temporal Temporal Temporal Pulse Rate (60-100) 100 98 87 Pulse Location Monitor Monitor Monitor Respiratory Rate (12-18) 18 18 18 Respiratory rate source Observation Observation Observation Oxygen Delivery Method Room Air Room Air Blood Pressure (90/60-120/80) 172/92 H 186/108 H 181/113 H Blood Pressure Mean (mm Hg) 118 134 135 Source Monitor Monitor Monitor Position Semi-Fowlers Semi-Fowlers Semi-Fowlers Blood Pressure Location Right Forearm Left Forearm Right Forearm History Since Last Visit- (Skip if this is Patient's initial visit) Have you changed medications since your No Yes No last visit? Any new allergies or adverse reactions No No No Had a fall/change in ADL's that may No No No increase risk of falls Signs or symptoms of abuse and/or No No No neglect since last visit Have you been in the hospital since your No No No last visit? Has dressing in place as prescribed Yes Yes Yes Has compression in place as prescribed Yes Yes Yes Has offloadiing in place as prescribed N/A N/A N/A Experienced any changes in pain level or No No No management Left Footwear No Footwear No Footwear Slipper Right Footwear Regular Shoe Slipper Slipper Pain Scale: 0-10 Numeric Is Patient Pain Free? Yes Yes Yes - Nurse 1 - General Ulcer Measurement Start: 09/20/24 10:11 Freq: Status: Active Protocol: Activity Type Activity Date Activity User E-sign Co-sign Detail Recorded Client Recorded Date Recorded By Document 09/20/24 10:11 [id number] 09/20/24 10:30 KW Document 09/27/24 10:21 [id number] 09/27/24 10:25 Document 10/04/24 10:34 [id number] 10/04/24 10:41 09/20/24 09/27/24 10/04/24 10:11 10:21 10:34 Wound Center Nurse 1 6-LLE Medial leg CLUSTER -Current Size (cm) - Length 0.3 0.1 0.1 -Current Size (cm) - Width 0.3 0.1 0.1 -Current Size (cm) - Depth 1.9 0.1 0 -Total Square Cm 0.09 0.01 0.01 -Date of Last Picture (Recall this 09/20/24 10/04/24 field) -Photo Taken No -Epithelialization Large 67-100% -Tunneling No -Undermining/Tunneling No -Circular Undermining No -Exudate Amt Medium Small Small -Exudate Type Serosanguineous Sanguineous Sanguineous -Wound Margin Thickened Flat & Intact -Granulation Amt Large (67-100%) -Granulation Quality [place] -Necrosis Amt Small (1-33%) -Necrotic Tissue Type Adherent Slough -Texture (Sukhdeep-wound Skin Appearance) Assessed, Assessed Localized Edema ,Scarring -Moisture (Sukhdeep-wound Skin Appearance) Assessed Assessed -Color (Sukhdeep-wound Skin Appearance) Assessed, Assessed Erythema -Temperature (Sukhdeep-wound Skin No Abnormality No Abnormality Appearance) (Pt Warm) (Pt Warm) -Tenderness on Palpation (Sukhdeep-wound No Skin Appearance) -Ulcer Cleansing Soap and Water Soap and Water Soap and Water -Foul Odor after Cleansing No No No -Anesthetic Used 5% Lidocaine Gel -Wound Comment(s) sutures intact Lower Limb Edema Present Yes Left Calf (cm) 66.5 60 54.5 Left Ankle (cm) 37.5 37 33.5 WC - Nurse 2 - General Ulcer CM Notes Start: 09/20/24 10:11 Freq: Status: Active Protocol: Activity Type Activity Date Activity User E-sign Co-sign Detail Recorded Client Recorded Date Recorded By Document 09/20/24 10:46 [id number] 09/20/24 11:00 Document 09/27/24 10:26 [id number] 09/27/24 10:27 09/20/24 09/27/24 10:46 10:26 Wound Center Nurse 2 #13 LT HEEL -Correct Patient Yes -Correct Side, Site, Position No -Correct Procedure No -Procedure Performed No -Post Debridement (cm) - Length 0 -Post Debridement (cm) - Width 0 -Post Debridement (cm) - Depth 0 -Total Square (Post) (cm) 0 -Area of Debridement (cm) - Length 0 -Area of Debridement (cm) - Width 0 -Total Square (Area) (cm) 0 -Wound/Ulcer Outcome Healed- Epithelialized 6-LLE Medial leg CLUSTER -Time 10:51 -Correct Patient Yes Yes -Correct Side, Site, Position Yes No -Correct Procedure Yes No -Procedure Performed Yes No -Type of Procedure Debridement -Clinical Debridement Subcutaneous -Tissue Removed Subcutaneous -Post Debridement (cm) - Length 0.5 0.1 -Post Debridement (cm) - Width 1.0 0.1 -Post Debridement (cm) - Depth 1.0 0.1 -Total Square (Post) (cm) 0.50 0.01 -Area of Debridement (cm) - Length 0.5 0.1 -Area of Debridement (cm) - Width 1.0 0.1 -Total Square (Area) (cm) 0.50 0.01 -Tunneling No No -Undermining/Tunneling No No -Circular Undermining No No -Wound/Ulcer Outcome Not Healed Not Healed -Ulcer Cleansing Rinsed/ Irrigated with Saline -Foul Odor after Cleansing No -Bioengineered Tissue No -Bleeding Controlled with Pressure -Treatment Response Procedure Tolerated Well -Offloading No -Debridement - Subq, 1st 20sq cm Yes No Pain Scale: 0-10 Numeric Is Patient Pain Free? Yes Yes WC - Nurse 3 - General Ulcer D/C NN Start: 09/20/24 10:11 Freq: Status: Active Protocol: Activity Type Activity Date Activity User E-sign Co-sign Detail Recorded Client Recorded Date Recorded By Document 09/20/24 11:13 [facility] [id number] 09/20/24 11:15 BM Document 09/27/24 10:36 [id number] 09/27/24 10:47 KW 09/20/24 09/27/24 11:13 10:36 Wound Care Center Nurse 3 6-LLE Medial leg CLUSTER -Ulcer Cleansing soap and water to sukhdeep area -Primary Dressing Applied NonAdherent NonAdherent Contact Layer, Contact Layer Optilok 5x5 1/2 -Other Dressing betadine betadine with adaptic -Primary Dressing Covered/Secured with Dry Gauze & Dry Gauze Roll Gauze, Secured with Tape -Optilok 5x5 1/2 1 -Wound Comment(s) pad around the ankle area LLE -Multi-Layered Wrap Application Multi-Layer Multi-Layer Comp - Left ($) Comp - Left ($) -Multi-Layer Compression Left (Qty 1 1 applied) Pain Scale: 0-10 Numeric Is Patient Pain Free? Yes Yes WC - Visit Discharge Discharge Condition Stable Stable Ambulatory Status Wheelchair Wheelchair Transportation Private Auto Private Auto Accompanied by family member Medication Reconcilliation completed & No provided to patient/care provider Clinical Summary of Care Provided Yes Assessment/Plan Assessment/Plan (1) Cellulitis of left lower limb: CODE(S): L03.116 - Cellulitis of left lower limb PLAN: Exam performed. healing delayed primary closure site to right medial leg. re-dressed with betadine, adaptec, 3m dressing. follow up weekly (2) Non-pressure chronic ulcer of other part of left foot with fat layer exposed: CODE(S): L97.522 - Non-pressure chronic ulcer of other part of left foot with fat layer exposed
--- NOTE | 2024-10-04 12:12 | WC ---
Transfer of care from Dr. Perez to Dr. Lazo effective end of day 10/04/24
--- NOTE | 2024-10-04 13:46 | WC ---
PHOTO 10/04/24 [employer]UENT[facility]
== END 2024-10-10 23:59 | disposition home or self-care (01) ==
LOC: WC 10:30
PROVIDERS: PCP Nurse Practitioner Family; Referring Provider Internal Medicine; Visit Provider Surgery
DX: E11.622 Type 2 diabetes mellitus with other skin ulcer (principal); L97.822 Non-pressure chronic ulcer of other part of left lower leg with fat layer exposed; E11.42 Type 2 diabetes mellitus with diabetic polyneuropathy; Z79.4 Long term (current) use of insulin; E11.65 Type 2 diabetes mellitus with hyperglycemia; L03.116 Cellulitis of left lower limb; S90.422A Blister (nonthermal), left great toe, initial encounter; X58.XXXA Exposure to other specified factors, initial encounter; R60.0 Localized edema; Z79.84 Long term (current) use of oral hypoglycemic drugs; Z79.85 Long-term (current) use of injectable non-insulin antidiabetic drugs; Z79.890 Hormone replacement therapy; Z79.899 Other long term (current) drug therapy
CPT/HCPCS: 11042; 29581; 99213; G0463

== ENCOUNTER 2024-10-11 10:01 | Outpatient (RCR) | payer MEDICAID, SELFPAY ==
[2024-10-11 10:02] VITALS: BP 160/69; PULSE 91; RESP 16; TEMP 36.1
--- NOTE | 2024-10-14 16:24 | PCM.WC.HP ---
History of Present Illness Date of Service: 10/11/24 Chief Complaint: Left History of Wound: Ms. Rosenberg is a 43-year-old diabetic female who presented to the Wound Center originally with bilateral lower extremity ulcerations. The patient was referred to the Wound Center by her primary care physician in [place], [place]. The patient has been managed recently at the [facility] by Dr. Jesse Perez, Litigation Claim Representative. At the time of the patient's initial presentation, she had left proximal and heel ulcerations as well as a right foot ulceration secondary to peripheral neuropathy and diabetes. The patient is an uncontrolled diabetic with blood sugars as high as 300 mg/dL daily. Her A1c was 13%. Treatment in recent weeks has been with local wound care and oral antibiotics. The patient is seen today relative to a healing ulceration on the left medial calf. [facility] Medical History MRSA (methicillin resistant staph aureus) culture positive Non-pressure chronic ulcer of left calf with fat layer exposed Hypothyroidism Allergic rhinitis Chronic acquired lymphedema Morbid obesity Chronic anemia ESRD (end stage renal disease) on dialysis History of renal cell cancer Chronic painful diabetic neuropathy IDDM (insulin dependent diabetes mellitus) Tobacco use Mood disorder Anxiety and depression Sleep apnea COPD (chronic obstructive pulmonary disease) Asthma Smoker Anxiety Depressive disorder Pyelonephritis diabetes mellitus Diabetes mellitus Acute UTI Morbid obesity Home Medications Medication Instructions Recorded Last Taken Type albuterol sulfate 90 mcg/actuation 2 puff inhalation Q4H PRN PRN Sob 08/07/17 Unknown History aerosol inhaler (Ventolin HFA) &/Or Wheezing ipratropium 0.5 mg-albuterol 3 mg 3 ml inhalation Q6H.RT PRN Sob 08/07/17 Unknown History (2.5 mg base)/3 mL nebulization &/Or Wheezing soln ondansetron 4 mg disintegrating 4 mg PO Q8H PRN PRN Nausea 08/07/17 Unknown History tablet insulin glargine 100 unit/mL 20 unit SQ DAILY 01/30/18 Unknown History subcutaneous solution (Lantus U-100 Insulin) amlodipine 5 mg tablet 5 mg PO DAILY ##30 02/04/18 Unknown Rx ondansetron 4 mg disintegrating 4 mg PO TID PRN Nausea ##20 02/08/18 Unknown Rx tablet (Zofran ODT) NovoLOG Mix 70-30 U-100 Insuln 10/07/23 Unknown History Voltaren topical PRN pain 10/07/23 Unknown History atorvastatin 40 mg tablet 40 mg PO QHS 10/07/23 Unknown History bumetanide 2 mg tablet 2 mg PO TID 10/07/23 Unknown History calcium 500 mg (as 1 tab PO BID 10/07/23 Unknown History carbonate)-vitamin D3 5 mcg (200 unit) tablet (Oyster Shell Calcium-Vitamin D3) cephalexin 250 mg capsule 250 mg PO BID 10/07/23 Unknown History cyanocobalamin (vitamin B-12) 1,000 mcg PO DAILY 10/07/23 Unknown History 1,000 mcg tablet cyclobenzaprine 5 mg tablet 5 mg PO TID PRN muscle spasm 10/07/23 Unknown History epinephrine 0.3 mg/0.3 mL 0.3 ml IM UD 10/07/23 Unknown History injection, auto-injector ergocalciferol (vitamin D2) 1,250 1,250 mcg PO 10/07/23 Unknown History mcg (50,000 unit) capsule famotidine 20 mg tablet 20 mg PO BID 10/07/23 Unknown History ferrous sulfate 325 mg (65 mg 325 mg PO DAILY 10/07/23 Unknown History iron) tablet (FeroSul) gabapentin 100 mg capsule 200 mg PO TID 10/07/23 Unknown History levothyroxine 25 mcg tablet 25 mcg PO DAILY 10/07/23 Unknown History metoclopramide HCl 10 mg tablet 10 mg PO TID 10/07/23 Unknown History montelukast 10 mg tablet 10 mg PO QHS 10/07/23 Unknown History nifedipine 30 mg tablet,extended 30 mg PO DAILY 10/07/23 Unknown History release 24 hr omeprazole 40 mg capsule,delayed 40 mg PO DAILY 10/07/23 Unknown History release pantoprazole 40 mg tablet,delayed 40 mg PO DAILY 10/07/23 Unknown History release quetiapine 25 mg tablet 25 mg PO QHS 10/07/23 Unknown History tirzepatide 5 mg/0.5 mL 5 mg subcut QWEEK 10/07/23 Unknown History subcutaneous pen injector (Samira) atorvastatin 40 mg tablet 40 mg PO QHS HLD 11/02/23 Unknown History bumetanide 2 mg tablet 2 mg PO TID HTN, edema 11/02/23 Unknown History famotidine 20 mg tablet 20 mg PO BID GERD 11/02/23 Unknown History gabapentin 100 mg capsule 200 mg PO TID DM neuropathy 11/02/23 Unknown History glipizide 10 mg tablet 20 mg PO BID DM 11/02/23 Unknown History insulin aspart U-100 100 unit/mL subcut ISS DM 11/02/23 Unknown History subcutaneous solution insulin glargine 100 unit/mL (3 30 unit subcut QHS DM 11/02/23 Unknown History mL) subcutaneous pen (Lantus Solostar U-100 Insulin) levothyroxine 25 mcg tablet 25 mcg PO DAILY Hypothyroidism 11/02/23 Unknown History lisinopril 20 mg tablet 20 mg PO DAILY HTN 11/02/23 Unknown History metoprolol succinate 50 mg 50 mg PO DAILY HTN 11/02/23 11/04/23 History tablet,extended release 24 hr montelukast 10 mg tablet 10 mg PO QHS Allergic rhinitis 11/02/23 Unknown History nifedipine 30 mg tablet,extended 30 mg PO HTN 11/02/23 Unknown History release pantoprazole 40 mg tablet,delayed 40 mg PO DAILY GERD 11/02/23 11/04/23 History release quetiapine 25 mg tablet 25 mg PO QHS 11/02/23 Unknown History Anxiety/Depression/Mood disorder cephalexin 500 mg tablet 500 mg PO BID #14 tabs 11/09/23 Unknown Rx ciprofloxacin HCl 500 mg tablet 500 mg PO BID #14 tabs 11/09/23 Unknown Rx ferrous sulfate 325 mg (65 mg 325 mg PO BID #60 tabs 11/09/23 Unknown Rx iron) tablet oxycodone 5 mg capsule 5 mg PO Q6H PRN pain 7 days #28 11/11/23 Unknown Rx caps doxycycline hyclate 100 mg capsule 100 mg PO BID 2 weeks #28 caps 01/13/24 Unknown Rx doxycycline hyclate 100 mg capsule 100 mg PO BID 2 weeks #28 caps 01/13/24 Unknown Rx doxycycline hyclate 100 mg capsule 100 mg PO BID 10 days #20 caps 07/05/24 Unknown Rx doxycycline hyclate 100 mg tablet 100 mg PO BID 7 days #14 tabs 07/12/24 Unknown Rx Allergy/AdvReac Type Severity Reaction Status Date / Time bee venom protein (honey Allergy Severe Anaphylaxis Verified 11/16/23 11:30 bee) (bee stings) acetaminophen (From Tylenol) AdvReac Severe Hives Verified 11/16/23 11:30 clindamycin AdvReac Severe Hives Verified 11/16/23 11:30 metformin AdvReac Intermediate Diarrhea Verified 11/16/23 11:30 dulaglutide (From Trulicity) AdvReac Mild Constipatio Verified 11/16/23 11:30 n Family History Father Diabetes Uncle Cancer Grandmother Diabetes Mother Diabetes Father Cancer Hx Lung, Rectal cancer. COPD (chronic obstructive pulmonary disease) Diabetes Surgical History (Updated 10/14/24 @ 16:[address] Jose Lazo MD) S/P foot surgery, left H/O partial nephrectomy Previous section History of tubal ligation Social History Smoking Status: Current every day smoker alcohol intake: never Physical Exam Const alert, oriented x3 and no apparent distress Constitutional Narrative: The patient is morbidly obese. Her BMI is 62.7. General Appearance: cooperative, comfortable and well developed Orientation / Consciousness: awake, oriented to person, oriented to place and oriented to time Exam Limitations: no limitations HEENT normocephalic and head/scalp atraumatic Head and Scalp: normal to inspection, normocephalic and atraumatic Face and Sinus: normal facial exam Nose: external nose normal External Ear: external ears normal Eyes EOMs intact bilaterally Resp normal respiratory effort, normal air movement, no retractions and no use of accessory muscles Skin Wound Narrative: The ulceration on the patient's left medial calf, the lone remaining ulceration, is now healed. 3 nonabsorbable, interrupted sutures had remained in place from prior visits with Dr. Perez. The sutures were removed in the Wound Center today, and the patient's ulceration remained well-approximated and healed. Swelling and edema were noted in the patient's lower extremities bilaterally. Neuro oriented x3 and CN's II-XII intact bilaterally Sensorium / Orientation: awake, alert, oriented to person, oriented to place and oriented to time Debridement Note Debridement Note No debridement was completed: No debridement was completed today Post-Debridement Measurements and Additional Note: Post-Debridement Measurements/Treatment WC - Nurse 1 - General Ulcer Assessment Start: 10/11/24 10:02 Freq: Status: Active Protocol: ZACH.GUI Activity Type Activity Date Activity User E-sign Co-sign Detail Recorded Client Recorded Date Recorded By Document 10/11/24 10:02 [facility] [id number] 10/11/24 10:04 [facility] 10/11/24 10:02 - Today's Visit Information Type of service Follow-up Visit (Physician/DYE RANGE OPERATOR ) Arrival Mode Wheelchair Transfer Assistance Other Transfer Assist (Other) 1 Accompanied by family Patient Identification Verified (Name & Yes ) Vital Signs Temperature (97.8 F-99.1 F) 97 F L Temperature Source Temporal Pulse Rate (60-100) 91 Pulse Location Monitor Respiratory Rate (12-18) 16 Respiratory rate source Observation Oxygen Delivery Method Room Air Blood Pressure (90/60-120/80) 160/69 H Blood Pressure Mean 99 Source Monitor Position Sitting Blood Pressure Location Right Arm History Since Last Visit- (Skip if this is Patient's initial visit) Have you changed medications since your No last visit? Any new allergies or adverse reactions No Had a fall/change in ADL's that may No increase risk of falls Signs or symptoms of abuse and/or No neglect since last visit Have you been in the hospital since your No last visit? Has dressing in place as prescribed Yes Has compression in place as prescribed Yes Left Footwear Regular Shoe Right Footwear Regular Shoe Pain Scale: 0-10 Numeric Is Patient Pain Free? Yes - Nurse 1 - General Ulcer Measurement Start: 10/11/24 10:02 Freq: Status: Active Protocol: Activity Type Activity Date Activity User E-sign Co-sign Detail Recorded Client Recorded Date Recorded By Document 10/11/24 10:02 [facility] [id number] 10/11/24 10:04 [facility] 10/11/24 10:02 Wound Center Nurse 1 6-LLE Medial leg CLUSTER -Combined with other wound No -Current Size (cm) - Length 0.1 -Current Size (cm) - Width 0.1 -Current Size (cm) - Depth 0.1 -Total Square Cm 0.01 -Date of Last Picture (Recall this 10/11/24 field) -Photo Taken Yes -Texture (Carrie-wound Skin Appearance) Assessed -Moisture (Carrie-wound Skin Appearance) Assessed -Color (Carrie-wound Skin Appearance) Assessed -Wound Comment(s) sutures intact Lower Limb Edema Present Yes Left Calf (cm) 59.2 Left Ankle (cm) 32.6 WC - Nurse 2 - General Ulcer CM Notes Start: 10/11/24 10:02 Freq: Status: Active Protocol: Activity Type Activity Date Activity User E-sign Co-sign Detail Recorded Client Recorded Date Recorded By Document 10/11/24 10:14 DS [id number] 10/11/24 10:16 DS 10/11/24 10:14 Wound Center Nurse 2 6-LLE Medial leg CLUSTER -Time 10:14 -Correct Patient Yes -Correct Side, Site, Position Yes -Procedure Performed No -Wound/Ulcer Outcome Healed- Epithelialized -Wound Comment(s) sutures removed Pain Scale: 0-10 Numeric Is Patient Pain Free? Yes - Nurse 3 - General Ulcer D/C NN Start: 10/11/24 10:02 Freq: Status: Active Protocol: Activity Type Activity Date Activity User E-sign Co-sign Detail Recorded Client Recorded Date Recorded By Document 10/11/24 10:34 [facility] [id number] 10/11/24 10:34 [facility] 10/11/24 10:34 Wound Care Center Nurse 3 6-LLE Medial leg CLUSTER -Primary Dressing Covered/Secured with Dry Gauze, Secured with Tape LLE -Compression Wrap Jori Wrap -Tubular Bandage Double Layer -Size of Tubigrip Used Size F -Size F ($) 2 Pain Scale: 0-10 Numeric Is Patient Pain Free? Yes - Visit Discharge Discharge Condition Stable Ambulatory Status Wheelchair Transportation Private Auto Accompanied by friend Medication Reconcilliation completed & Yes provided to patient/care provider Clinical Summary of Care Provided Yes Charges/Coding Visit Charges Office Visits / Consults: 25994 OV L3 New 30min Assessment/Plan Assessment/Plan (1) Non-pressure chronic ulcer of left calf with fat layer exposed: CODE(S): L97.222 - Non-pressure chronic ulcer of left calf with fat layer exposed (2) Type 2 diabetes mellitus with diabetic polyneuropathy: CODE(S): E11.42 - Type 2 diabetes mellitus with diabetic polyneuropathy (3) Other specified peripheral vascular diseases: CODE(S): I73.89 - Other specified peripheral vascular diseases (4) History of end stage renal disease: CODE(S): Z87.448 - Personal history of other diseases of urinary system (5) Anemia: CODE(S): D64.9 - Anemia, unspecified (6) Venous insufficiency (chronic) (peripheral): CODE(S): I87.2 - Venous insufficiency (chronic) (peripheral) (7) ESRD (end stage renal disease): CODE(S): N18.6 - End stage renal disease (8) Hx of partial nephrectomy: CODE(S): Z90.5 - Acquired absence of kidney (9) Diabetes mellitus with diabetic polyneuropathy: CODE(S): E11.42 - Type 2 diabetes mellitus with diabetic polyneuropathy (10) Hypothyroidism: CODE(S): E03.9 - Hypothyroidism, unspecified (11) Chronic anemia: CODE(S): D64.9 - Anemia, unspecified (12) COPD (chronic obstructive pulmonary disease): CODE(S): J44.9 - Chronic obstructive pulmonary disease, unspecified (13) Morbid obesity: CODE(S): E66.01 - Morbid (severe) obesity due to excess calories (14) H/O partial nephrectomy: CODE(S): Z90.5 - Acquired absence of kidney (15) History of tubal ligation: CODE(S): Z98.51 - Tubal ligation status PLAN: Plan The patient's medical history was reviewed. The patient was seen today on behalf of Dr. Perez, Litigation Claim Representative, who has left the community and relocated his practice. The ulcerations in the patient's left lower extremity are now completely healed and epithelialized. Therefore, the patient is to be discharged, and will follow-up henceforth on an as-needed basis. Because of the patient's lower extremity swelling, she has been advised to elevate her lower extremities as much as possible. Elevation is to be to heart level, or higher. She has been encouraged to sleep on a flat mattress at night. Prolonged idle sitting has been discouraged. Activity, as tolerated, has been encouraged. Long-term compression has been discussed and encouraged. The patient is to be discharged today with her lower extremities fitted with Tubigrips and wrapped with Jori. Weight loss has been encouraged. Total time: 32 minutes
== END 2024-10-25 09:05 | disposition home or self-care (01) ==
LOC: WC 10:01
PROVIDERS: PCP Nurse Practitioner Family; Referring Provider Internal Medicine; Visit Provider Surgery
DX: Z09 Encounter for follow-up examination after completed treatment for conditions other than malignant neoplasm (principal); J44.9 Chronic obstructive pulmonary disease, unspecified; E66.01 Morbid (severe) obesity due to excess calories; Z68.44 Body mass index [BMI] 60.0-69.9, adult; E11.51 Type 2 diabetes mellitus with diabetic peripheral angiopathy without gangrene; E11.42 Type 2 diabetes mellitus with diabetic polyneuropathy; E11.65 Type 2 diabetes mellitus with hyperglycemia; Z79.4 Long term (current) use of insulin; I87.2 Venous insufficiency (chronic) (peripheral); D64.9 Anemia, unspecified; E03.9 Hypothyroidism, unspecified; Z79.85 Long-term (current) use of injectable non-insulin antidiabetic drugs; Z79.899 Other long term (current) drug therapy; F17.200 Nicotine dependence, unspecified, uncomplicated; Z87.448 Personal history of other diseases of urinary system; Z90.5 Acquired absence of kidney
CPT/HCPCS: 99213; G0463